=== PATIENT | male | born 1945 | race Caucasian/White ===

== ENCOUNTER 2023-08-05 05:57 | Inpatient (IN) | payer OTHER, SELFPAY ==
[2023-07-31 09:41] LABS: % Basophils 0.4 % (0-2); % Eosinophils 1.8 % (0-6); % Immature Granulocytes 0.1 % (0-0.5); % Lymphocytes 18.2 % (20.5-51.1); % Monocytes 11.7 % (1.7-9.3); % Neutrophils 67.8 % (42.2-75.2); Absolute Eosinophils 0.1 10^3/uL (0-0.7); Absolute Lymphocytes 1.4 10^3/uL (1.2-3.4); Absolute Monocytes 0.9 10^3/uL (0.1-0.6); Absolute Neutrophils 5.2 10^3/uL (1.4-6.5); Hematocrit 39.7 % (39.0-52.0); Hemoglobin 13.7 g/dL (13.0-18.0); Mean Corp Hgb Conc. 34.5 g/dL (33.0-37.0); Mean Corpuscular Hgb 32.5 pg (27.0-31.0); Mean Corpuscular Volume 94.3 fL (80.0-94.0); Mean Platelet Volume 10.4 fL (7.4-10.4); Nucleated Red Blood Cells % 0 % (-); Platelet Count 264 10^3/uL (130-400); Red Blood Cell Count 4.21 10^6/uL (4.70-6.10); Red Cell Dist. Width 13.7 % (11.5-14.5); White Blood Cell Count 7.7 10^3/uL (4.8-10.8)
[2023-07-31 09:56] LABS: APTT 36.1 Sec (23.4-35.0); INR 1.14; PT 14.7 Sec (11.4-14.6)
[2023-07-31 11:06] VITALS: BMI 26.2
[2023-07-31 12:37] LABS: Glycohemoglobin (HgbA1c) 5.9 % (4.0-5.6)
[2023-08-05] VITALS (15 sets, daily range): BP systolic 89–166; BP diastolic 56–114; BMI 25.5
[2023-08-05] MEDS: PERIDEX 0.12% ORAL RINSE 15 ML PO (06:32)
[2023-08-05] MEDS: BACTROBAN NASAL 1 GRAM NASAL (06:32)
[2023-08-05] MEDS: NSS 266 IV (06:33)
[2023-08-05 06:50] LABS: Glucose - Point of Care 108 mg/dl (70-99)
[2023-08-05 07:03] LABS: ALT (SGPT) 23 U/L (0-50); AST (SGOT) 34 U/L (17-59); Albumin 4.4 g/dl (3.5-5.0); Alkaline Phosphatase 102 U/L (38-126); Blood Urea Nitrogen 15 mg/dl (9-20); Calcium 10.1 mg/dl (8.4-10.2); Carbon Dioxide 28 mmol/L (22-30); Chloride 101 mmol/L (98-107); Estimated Creatinine Clearance 88 ml/min; Glucose 99 mg/dl (70-99); Potassium 4.2 mmol/L (3.5-5.1); Sodium 137 mmol/L (135-145); Total Bilirubin 0.9 mg/dl (0.2-1.3); Total Protein 8.6 g/dl (6.3-8.2); eGFR > 60.00
--- NOTE | 2023-08-05 08:18 | W.SUR.PREOP ---
Pre-Operative Surgical Note
-
I have examined this patient prior to the performance of the scheduled procedure.
The patient's condition is unchanged from the time of the current History and
Physical and the patient is able to undergo the scheduled procedure.
[2023-08-05 09:52] LABS: ACT-LR - POC 306 Seconds (116-155)
[2023-08-05 10:56] LABS: ACT-LR - POC 229 Seconds (116-155)
[2023-08-05 11:05] LABS: B.E. - POC -2.3 mmol/L; Glucose - POC 56 mg/dl (65-99); HCO3 - POC 24 mmol/L (21-29); Hematocrit - POC 36 % PCV (42-52); Hemodilution- POC No; Hemoglobin Calculated - POC 12.3; Ionized Calcium - POC 1.19 mmol/L (1.12-1.27); Lactate - POC 0.59 mmol/L (0.36-0.75); O2 Saturation %Calculated-POC 99.6 5 (92-96); PCO2 - POC 44 mmHg (35-45); PO2 - POC 200 mmHg (80-100); Potassium - POC 3.6 mmol/L (3.6-5.0); Sodium - POC 142 mmol/L (135-145); pH - POC 7.34 (7.35-7.45)
[2023-08-05 11:54] LABS: ACT-LR - POC 226 Seconds (116-155)
[2023-08-05 12:55] LABS: ACT-LR - POC 247 Seconds (116-155)
[2023-08-05 13:03] LABS: Glucose - Point of Care 123 mg/dl (70-99)
[2023-08-05 13:54] LABS: ACT-LR - POC 250 Seconds (116-155)
[2023-08-05 14:56] LABS: ACT-LR - POC 245 Seconds (116-155)
[2023-08-05 15:00] LABS: B.E. - POC -8.3 mmol/L; Glucose - POC 109 mg/dl (65-99); HCO3 - POC 21 mmol/L (21-29); Hematocrit - POC 36 % PCV (42-52); Hemodilution- POC Yes; Hemoglobin Calculated - POC 12.4; Ionized Calcium - POC 1.12 mmol/L (1.12-1.27); O2 Saturation %Calculated-POC 99.4 5 (92-96); PCO2 - POC 56 mmHg (35-45); PO2 - POC 194 mmHg (80-100); Potassium - POC 4.1 mmol/L (3.6-5.0); Sodium - POC 140 mmol/L (135-145); pH - POC 7.17 (7.35-7.45)
[2023-08-05 15:40] LABS: Glucose - Point of Care 106 mg/dl (70-99)
[2023-08-05 15:48] LABS: ACT-LR - POC 266 Seconds (116-155)
[2023-08-05 15:57] LABS: B.E. - POC -1.5 mmol/L; Glucose - POC 144 mg/dl (65-99); HCO3 - POC 25 mmol/L (21-29); Hematocrit - POC 37 % PCV (42-52); Hemodilution- POC Yes; Hemoglobin Calculated - POC 12.4; Ionized Calcium - POC 1.05 mmol/L (1.12-1.27); Lactate - POC 1.25 mmol/L (0.36-0.75); O2 Saturation %Calculated-POC 99.8 5 (92-96); PCO2 - POC 47 mmHg (35-45); PO2 - POC 246 mmHg (80-100); Potassium - POC 4.2 mmol/L (3.6-5.0); Sodium - POC 141 mmol/L (135-145); pH - POC 7.33 (7.35-7.45)
--- NOTE | 2023-08-05 16:54 | CON.INTV ---
Consultation
Consultation Request
Date/Time Consultation Requested: 08/05/2023 - 162
Date/Time Consultation Performed: 08/05/2023 - 1652
Requesting Provider: Kalyani YODER
Performing Provider: Dr. Ray
Reason for Consultation: s/p EVAR
Medical History
-
Chief Complaint: Elective endarterectomy/EVAR
History of Present Illness:
78-year-old male with a past medical history of PAD s/p kissing iliac stents bilaterally, AAA, COPD, tobacco use disorder, CAD s/p CABG x3 and A-fib s/p multiple failed cardioversions who presents with elective bilateral femoral endarterectomy and
vascular intervention for AAA. Patient known to Dr. Balbuena with last office visit on 06/25/2023. 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
the right renal artery. He also has high-grade stenosis involving the left external iliac artery extending into the common femoral artery. Open surgical repair was reviewed and that was considered too risky, hence best approach was a hybrid
surgical approach involving bilateral femoral cutdowns, femoral endarterectomies with patch angioplasty and then eventually retrograde balloon angioplasty with stenting of the left iliac artery and endovascular repair of his aortic aneurysm. Today,
patient underwent that surgery with 500 cc EBL and no immediate complications. Patient transferred to the ICU postoperatively and physician office assistant service is consulted for additional management/recommendations.
When I saw the patient he was in bed, in no acute distress, heart rate 119, saturating 97% on 2 L/min nasal cannula, BP 142/71 via A-line on Cardene gtt at 7.5 mg/h. Patient says he feels anxious, but denies chest pain, headache, abdominal pain,
shortness of breath, fevers or chills. He says he has been smoking about 1 pack/day for the last 60-65 years, but he is 'done smoking today.'
PMHx: Hyperlipidemia, ED, PMR, hypertension, CAD s/p CABG x3, history of skin cancer, tobacco use disorder, PAD, NSVT s/p ablation, history of alcohol abuse, history of COPD, A-fib (diagnosed in 2017), CAD s/p stents (1993 + 1994), history of
diverticulosis, history of NSTEMI
PSHx: History of cardioversion, history of cardiac ablation, CABG X3, history of kissing iliac stents bilaterally
Past Medical History
Past Medical History: Other (Above as per HPI)
Past Surgical History: Other (Above as per HPI)
Social History
Tobacco: Smoker (1PPD x 60-65 years)
Alcohol: None
Drug: None
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
Family History
Family History: CAD (Father) and Cancer (Mother: Lung cancer)
Allergies / Home Medications
Allergies
Allergy/AdvReac Type Severity Reaction Status Date / Time
Benzodiazepines Allergy works Verified 08/05/23 06:41
opposite-
gets
agitated
codeine Allergy gets wild- Verified 08/05/23 06:41
hallucinations,
visual
diazepam Allergy agitated + Verified 08/05/23 06:41
nervous
Home Medications
Medication Instructions Recorded Confirmed Last Taken Type
cetirizine 10 mg tablet 10 mg PO PRN PRN allergy 07/07/13 08/05/23 08/03/23 11:00 History
1 tab
acetaminophen 325 mg tablet 650 mg PO PRN PRN pain 11/12/21 07/28/23 05/07/23 History
cholecalciferol (vitamin D3) 50 2,000 units PO DAILY@1200 11/12/21 08/05/23 08/03/23 11:00 History
mcg (2,000 unit) tablet Supplement 1 tab
diltiazem HCl 300 mg 300 mg PO DAILY Arrhythmia 11/12/21 08/05/23 08/03/23 11:00 History
capsule,extended release 24 hr 1 tab
docusate sodium 100 mg capsule 100 mg PO DAILY@1200 Constipation 11/12/21 08/05/23 08/03/23 11:00 History
1 cap
multivitamin with folic acid 400 1 tab PO DAILY@1200 Supplement 11/12/21 08/05/23 08/03/23 11:00 History
mcg tablet (Tab-A-Samir) 1 tab
tiotropium bromide 1.25 2 puff inhalation R DAILY PRN 11/12/21 08/05/23 Unknown History
mcg/actuation mist for inhalation sob/wheezing
(Spiriva Respimat)
lisinopril 5 mg tablet 5 mg PO NOON 05/08/23 08/05/23 08/03/23 11:00 History
1 tab
vitamin B complex 1 cap PO DAILY@1200 05/08/23 08/05/23 08/03/23 11:00 History
1 cap
zinc acetate 50 mg (zinc) capsule 50 mg PO DAILY@1200 05/08/23 08/05/23 08/03/23 11:00 History
1 cap
apixaban 5 mg tablet (Eliquis) 5 mg PO BID Blood clot 05/10/23 08/05/23 08/02/23 11:00 Rx
prevention/tx #0 tabs 1 tab
rosuvastatin 40 mg tablet (Crestor) 40 mg PO HS High cholesterol #0 05/10/23 08/05/23 08/03/23 22:00 Rx
tabs 1 tab
folic acid 400 mcg tablet 0.4 mg PO DAILY 07/28/23 08/05/23 08/03/23 11:00 History
1 tab
Review of Systems
-
History Source: Patient
All other systems: Negative unless noted (12 point ROS performed and is negative unless mentioned above.)
Vitals / Labs / Diagnostic Testing
Vital Signs
Temp Pulse Resp BP Pulse Ox
97.9 F 104 16 132/86 97
08/05/23 06:51 08/05/23 06:51 08/05/23 06:51 08/05/23 06:51 08/05/23 06:51
Diagnostic Testing:
Physical Exam
-
HEENT: Normocephalic and Anicteric
Cardiovascular: Peripheral Edema (Negative) and Other (Tachycardic)
Respiratory: Clear, Wheeze (Negative), Rales (Negative), Rhonchi (Negative) and Non-Labored Respirations
GI: Soft, Non Distended and Non Tender
Neurology: AO x 3 and Tremors (Negative)
Skin: Warm (However toes are cold bilaterally (R >L)) and Dry
General: Comfortable
Assessment
-
Assessment: 78-year-old male with a past medical history of PAD s/p kissing iliac stents bilaterally, AAA, COPD, tobacco use disorder, CAD s/p CABG x3 and A-fib s/p multiple failed cardioversions who presents with elective bilateral femoral
endarterectomy and vascular intervention for AAA. Patient known to Dr. Balbuena with last office visit on 06/25/2023. 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
aorta just inferior to the right renal artery. He also has high-grade stenosis involving the left external iliac artery extending into the common femoral artery. Open surgical repair was reviewed and that was considered too risky, hence best
approach was a hybrid surgical approach involving bilateral femoral cutdowns, femoral endarterectomies with patch angioplasty and then eventually retrograde balloon angioplasty with stenting of the left iliac artery and endovascular repair of his
aortic aneurysm. Today, patient underwent that surgery with 500 cc EBL and no immediate complications. Patient transferred to the ICU postoperatively and physician office assistant service is consulted for additional management/recommendations.
Chronic medical conditions [facility] [employer]: Hyperlipidemia, ED, PMR, hypertension, CAD s/p CABG x3, history of skin cancer, tobacco use disorder, PAD, NSVT s/p ablation, history of alcohol abuse, history of COPD, A-fib (diagnosed in 2016), CAD s/p stents (1993
+ 1994), history of diverticulosis, history of NSTEMI
Impression:
#Bilateral femoral artery stenosis s/p cutdown with endarterectomy with bovine patch angioplasty & left iliac artery stenting,(POD #0)
#AAA s/p EVAR using physician modified aortic endograft (POD #0)
#Leukocytosis
#Anemia
#Tachycardia - patient endorses anxiety
Plan:
Postoperative surgical intensive care unit monitoring
Supplemental oxygen as needed
Incentive spirometry
Aspiration precautions
Neuro and vascular checks per protocol
Vascular surgery following-correspondence and operative notes reviewed
Prn ativan ordered for anxiety
Wean down cardene gtt to maintain MAP 70-100 while keeping SBP>90
DVT prophylaxis
Early nutrition
Early mobilization
Critical care statement: A total of 44 minutes of critical care time was provided for this patient today. This includes management of unstable vital signs, evaluation of the patient at bedside, reviewing the patient's pertinent medical records
including radiographs, microbiology, laboratory evaluations, and discussion with primary team, consultants, pharmacy, nutrition, physical therapy, case management, charge nurse, critical care nursing, and respiratory therapy.
--- NOTE | 2023-08-05 16:55 | W.IMMPOSTOP ---
Surgical Immed Post Op Note
-
Primary Surgeon: Linwood Balbuena III, MD
Assisting Surgeon: Chris Miguel MD
Pre-op Diagnosis: BL Femoral Artery Stenosis, AAA
Post-op Diagnosis: As above
Procedure Performed: Bilateral femoral artery cutdown, endarterectomy with bovine patch angioplasty, retrograde balloon angioplasty, IV lithotripsy, and stenting of left iliac artery, endovascular aneurysm repair using physician modified aortic
endograph
Anesthesia Type: General
Specimen / Cultures: NA
Estimated Blood Loss: 500cc
Complications: NA
Operative Findings:
Bilateral femoral artery cutdowns were performed and control of proximal common, superficial, and profunda femoral arteries were attained. Heparin was administered at 100u/kg. Retrograde angioplasty and shock-wave lithotripsy were performed to
increase patency of the left iliac artery to facilitate device delivery. Due to a short landing zone, a covered zenith TEVAR graft was unsheathed and fenestrations were created for the SMA and bilateral renal arteries. The graft was then
re-sheathed. Access was obtained via the right common femoral artery and the device was successfully deployed into the abdominal aorta using fluoroscopic guidance. Bilateral arteriotomies were performed and atherosclerotic debris was removed from
the proximal and superficial femoral arteries. Patch angioplasties using 1cm bovine pericardial patches were then used to oversew the arteries. After hemostasis was achieved, the incision sites were closed using 2-0 vicryls (fascia), 3-0 vicryls
(SQ) and skin was closed using alternating 3-0 nylon sutures and renny. Bilateral wound vacs were placed on top. DP pulses were palpable bilaterally postoperatively.
[2023-08-05 17:14] LABS: Mean Corp Hgb Conc. 34.3 g/dL (33.0-37.0); Mean Corpuscular Hgb 32.3 pg (27.0-31.0); Mean Corpuscular Volume 94.1 fL (80.0-94.0); Mean Platelet Volume 10.3 fL (7.4-10.4); Platelet Count 209 10^3/uL (130-400); Red Blood Cell Count 3.72 10^6/uL (4.70-6.10); White Blood Cell Count 23.5 10^3/uL (4.8-10.8)
[2023-08-05] MEDS: DILAUDID 0.25 MG IV (17:21)
[2023-08-05 17:23] LABS: INR 1.21; PT 15.4 Sec (11.4-14.6)
[2023-08-05 17:24] LABS: APTT 30.9 Sec (23.4-35.0)
[2023-08-05 17:28] LABS: ALT (SGPT) 17 U/L (0-50); AST (SGOT) 28 U/L (17-59); Alkaline Phosphatase 85 U/L (38-126); Amylase 41 U/L (30-110); Blood Urea Nitrogen 14 mg/dl (9-20); Calcium 7.9 mg/dl (8.4-10.2); Carbon Dioxide 23 mmol/L (22-30); Chloride 104 mmol/L (98-107); Direct Bilirubin 0.4 mg/dl (0.0-0.4); Estimated Creatinine Clearance 88 ml/min; Glucose 176 mg/dl (70-99); Lipase 57 U/L (23-300); Potassium 4.6 mmol/L (3.5-5.1); Sodium 135 mmol/L (135-145); Total Bilirubin 0.6 mg/dl (0.2-1.3); eGFR > 60.00
[2023-08-05] MEDS: NSS 1000 IV (17:49)
[2023-08-05] MEDS: CARDENE 200 IV (18:27)
--- NOTE | 2023-08-05 18:32 | PTCARENOTE ---
recd from PACU via bed, art line connected to monitor, VS noted. R cuff 104/75, L cuff 165/113, art line see VS intervention, 168/93. Cardene initiated per order, pt denies knowing R and L arms are different pressures. restless, pulling at dotson,
c/o spasm, encouraged to relax and breathe deep. doppler signals noted. bilat STEPHEN dressings maintained. Cordis with IV fluids, temp sensing dotson, periph sites. denies pain at this time.
[2023-08-05] MEDS: LOW STRENGTH ASPIRIN 81 MG PO (18:41)
[2023-08-05 18:43] LABS: Magnesium 1.9 mg/dl (1.6-2.3)
--- NOTE | 2023-08-05 19:00 | PTCARENOTE ---
pulse checks as noted, doppler signals, fleeting one obtained L anterior tib. no other change. c/o dotson, needs to urinate, reassured and shown that catheter is draining, warm blankets given. pillow under calves. neil initiated, see
intervention, titrating carefully. Swallowed pill easily, sip water.
[2023-08-05] MEDS: ATARAX 25 MG PO (20:12)
--- NOTE | 2023-08-05 20:48 | OR.RPT ---
Operative Report
Operative Report
Date of Operation: 08/05/2023
Pre Op Diagnosis:
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
2.) Small fusiform abdominal aortic aneurysm distally
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
4.) Calcified common femoral artery disease bilaterally
Post Op Diagnosis:
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
2.) Small fusiform abdominal aortic aneurysm distally
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
4.) Calcified common femoral artery disease bilaterally
Procedure:
1.) Cutdown and open exposure of BILATERAL common femoral arteries
2.) Intravascular lithotripsy of calcified left common iliac artery stenosis (9 mm x 30 mm Shockwave L6 balloon)
3.) Intravascular lithotripsy of calcified left external iliac artery stenosis (9 mm x 30 mm Shockwave L6 balloon)
4.) Intravascular lithotripsy of calcified left common femoral artery stenosis (9 mm x 30 mm Shockwave L6 balloon)
5.) Endovascular repair of saccular abdominal aortic aneurysm and smaller fusiform abdominal aortic aneurysm:
Physician modified aortic endograft: Cook Alpha 30-26-108 (back table fenestrations created for superior mesenteric artery and bilateral renal arteries)
6 mm x 22 mm atrium iCast stent left renal artery; proximal postdilated to 8 mm
7 mmx 39 mm [place] VBX right renal artery; proximal postdilated to 8 mm
Endologix AFX2 distal main body 28�60/16�40
6.) BILATERAL common femoral artery endarterectomies with patch angioplasty using bovine pericardium
Surgeon: Linwood Balbuena III, MD
Radiology Asst: Chris Miguel MD PGY-1; BEBA Leiva
Fluoroscopy:
102.9 minutes
4345 mGy
DAP 720.82
Anesthesia: General
Complications: None
Estimated Blood Loss: 500 cc
History and Indications for Procedure: 78-year-old male with severe peripheral arterial occlusive disease, bilateral iliac artery disease, prior kissing iliac stents, a large saccular aneurysm of the abdominal aorta, a smaller fusiform aneurysm of
the more distal and bilateral common femoral artery disease.
Procedure in Detail: Avery Guajardo was correctly identified and placed supine on the operating table. After adequate induction of anesthesia the abdomen, pelvis and bilateral groins were positioned, prepped and draped in the usual sterile fashion.
Preoperative antibiotics were administered. A timeout procedure was performed with the nursing and anesthesia staff confirming the patients identity as well as the nature and laterality of the procedure.
We started by making vertical incisions in the groins bilaterally. Electrocautery was used to dissect the subcutaneous tissue. Lymphatics were ligated and divided between silk ties and metal clips. Through a combination of sharp dissection and
electrocautery, we identified the common femoral arteries bilaterally. Dissection continued up under the inguinal ligament into the retroperitoneum bilaterally. The distal external iliac artery bilaterally was encircled with a vessel loop
underneath the inguinal ligament. Dissection was then continued distally. The femoral bifurcation was identified bilaterally as well as the proximal superficial femoral artery and profunda femoral artery. The proximal superficial femoral artery was
encircled with a vessel loop bilaterally. Dissection onto the profunda femoral artery bilaterally. The proximal profunda femoral artery was controlled with a vessel loop bilaterally. The patient was systemically heparinized.
The left common femoral artery at the femoral bifurcation was punctured in a retrograde direction under direct visualization with a micropuncture needle. I then upsized to a 5 Lithuanian sheath over a Bentson wire. A retrograde arteriogram was
performed through the 5 Lithuanian sheath demonstrating a patent iliac system however there was diffuse heavy calcification with areas of high-grade stenosis in the common iliac artery, iliac bifurcation and throughout the external iliac artery and
proximal common femoral artery. A Glidewire and quick cross catheter were advanced through the iliac system and into the abdominal aorta. I exchanged out for a Storq wire. An 8 Lithuanian sheath was placed in the left groin. I then exchanged out for
a V18 wire. Due to the heavily calcified nature of the arterial disease and in an effort to modify the calcium to achieve maximum luminal gain with endovascular intervention as well as prepare the left iliac system for endovascular device delivery
I elected to proceed with intravascular lithotripsy. A 9 mm x 30 mm L6 shockwave balloon was advanced over the wire and through the iliac stenoses under roadmap guidance. Alternating rounds of lithotripsy pulse delivery at sub-nominal pressure and
angioplasty at nominal pressure was performed across the entire iliac system starting at the distal aspect of the existing common iliac artery stent and finishing in the left common femoral artery. Intravascular lithotripsy treatment included the
common iliac artery, external iliac artery and common femoral artery. In between rounds of pulse delivery and angioplasty the balloon was deflated and repositioned under roadmap guidance. All 300 pulses were delivered.
Following this I then exchanged out for a Lunderquist wire. In an effort to determine whether the aortic endograft could be successfully delivered through the iliac system prior to physician modification I advanced a 16 Lithuanian dilator followed by
an 18 Lithuanian dilator over the Lunderquist wire through the left femoral access. Both of these dilators passed easily through the left iliac system and into the aorta. I remove the dilator and replaced a 16 Lithuanian dry seal sheath in the left groin.
Both groins were packed with dry gauze. We then proceeded with the back table aortic stent graft modification as follows:
The Cook Alpha 30-26-108 aortic graft was unsheathed on the back table. The proximal metal barbs were carefully removed circumferentially. A marked template was made on the back table using precise measurements from the preoperative CT angiogram
for the SMA and bilateral renal artery fenestrations. This template was then laid over the aortic endograft carefully and fenestrations were created in the endograft using a hand-held Bovie. A large 1 cm fenestration was created to the SMA. Renal
fenestrations were 6 mm each. The SMA fenestration was marked by sewing the wire from a gooseneck snare circumferentially around the fenestration with a running CV 6 Smithfield-Jorge Luis suture. The right renal fenestration was marked in a similar fashion.
The left renal fenestration was marked using the radiopaque tip of the micropuncture introducer wire. Orientation markers were utilized. The radiopaque marker from a pigtail catheter was removed and sewn in place to the endograft and an anterior
location just superior to the superior mesenteric artery fenestration. Another radiopaque marker from the pigtail catheter was removed and sewn in place to the endograft immediately below the left renal artery fenestration. 3-0 chromic suture was
then sewn circumferentially around the proximal stent of the aortic endograft as a diameter constraining mechanism. On the posterior aspect of the endograft behind the superior mesenteric artery fenestration and the renal artery fenestrations
additional diameter constraining sutures were placed around the aortic endograft stents using 3-0 chromic. Once satisfied with the physician modification we then very carefully resheathed the aortic stent by constraining the device segmentally
using umbilical tape and digital compression. The sheath was carefully readvanced over the stent and mated with the proximal olive-tip. Once this was completed the modified aortic endograft was brought over to the patient and oriented properly
under fluoroscopy.
Under direct visualization I punctured the right common femoral artery in a retrograde fashion with a micropuncture needle. I then upsized to an 8 Lithuanian sheath. I then advanced a pigtail catheter into the abdominal aorta. The C arm was placed
into a lateral projection. I performed an aortogram which visualized the origin of the superior mesenteric artery and both renal arteries. Using a MHK2 catheter and a Glidewire I selected the superior mesenteric artery. The Glidewire was advanced
into the distal artery. I then exchanged out for a Gibson wire through a Quickcross catheter and left the Gibson wire in place for marking purposes. The 8 Lithuanian sheath was removed and a 12 Lithuanian dry seal sheath was advanced into the distal
abdominal aorta. Over a separate wire through the 12 Lithuanian sheath a pigtail catheter was placed again in the abdominal aorta.
On the left the 16 Lithuanian dry seal was removed. With the proper orientation the modified aortic endograft was advanced over the Lunderquist wire and into the abdominal aorta. The graft was advanced to the approximate position relative to the
marking wire in the superior mesenteric artery. A diagnostic aortogram was performed. The bilateral renal arteries were marked. The graft was positioned appropriately. The aortic endograft was then carefully unsheathed to the distal end of the
stent.
Through a separate puncture in the 12 Fr sheath, using a Deni catheter and a Storq wire, the aortic stent graft main body was accessed. A Destino sheath was then advanced over the wire into the main body. Using the steerable Destino sheath and a
glidewire the left renal artery was accessed. The glide wire was exchanged out for a Gibson wire. The Destino sheath was straightened out slowly and removed.
Through a separate puncture in the 12 Fr sheath, using a Deni catheter and a Storq wire, the aortic stent graft main body was accessed once again. A Destino sheath was then advanced over the wire into the main body. Using the steerable Destino
sheath and a glidewire the right renal artery was accessed. The Glidewire was exchanged out for a Gibson wire. The Destino sheath was left in place
The proximal aspect of the Cook Alpha graft was then deployed. The delivery system was carefully removed over the wire. The Cook sheath was then exchanged out for the 17 Lithuanian AFX introducer sheath which was brought into position over the
Lunderquist wire to the distal aspect of the aortic endograft. A Coda balloon was then inserted on the left and the proximal seal zones of the aortic stent graft were profiled as well as all areas of the diameter reducing chromic sutures. The Coda
was then removed over the wire.
Deployment of the renal artery stents across the renal fenestrations were completed one at a time as follows: The renal fenestration markers on each side were 'closed' by adjusting the C-arm obliquity. We attempted to deliver a 7 mm x 39 mm [place]
VBX to the right renal artery through the Destino sheath. We could not track the sheath across an area of proximal calcified stenosis in the right renal artery. I therefore exchanged the Gibson wire out for a 0.014 wire. I then used a 4 mm x 40 mm
angioplasty balloon to perform balloon angioplasty on the area of calcified renal artery. I then exchanged out for a 1 cm floppy tip Amplatz wire through a quick cross catheter. I then straightened out and removed the Destino sheath. A 6 Lithuanian
Slick sheath was then advanced over the Amplatz wire through the right renal artery fenestration. We were then able to successfully deliver the 7 mm x 39 mm [place] VBX into the proper position. The stent was positioned in the desired location. The
balloon was inflated to subnominal pressure. The Slick sheath was re-advanced into the VBX to 'swallow' the balloon as it was deflated. An 8 mm x 20 mm angioplasty balloon was then positioned in the proximal portion of the VBX. The sheath was
retracted and the balloon inflated while maintaining gentle forward pressure to post-dilate the proximal end of the VBX. The sheath was once again re-advanced into the stent by swallowing the balloon as it deflated. The Slick sheath was removed but
the Amplatz wire was left in place.
Over the Gibson wire in the left renal artery a 6 mm x 22 mm iCast stent was positioned appropriately. The balloon was inflated to nominal pressure and then removed over the wire. An 8 mm x 20 mm angioplasty balloon was then positioned in the
proximal portion of the iCast. The balloon was inflated to nominal pressure while maintaining gentle forward pressure to post dilate the proximal end of the iCast.
Completion arteriograms revealed widely patent renal artery stents and renal arteries bilaterally. The Gibson wire was removed from the left renal artery after successful iCast placement. The superior mesenteric artery was easily cannulated through
the large fenestration with a MHK2 catheter and Glidewire.
We then focused our attention on the distal aortic intervention. Through a separate stick in the 12 Lithuanian dry seal sheath a [employer] wire was inserted. The En-Snare catheter was then advanced to the distal abdominal aorta above the kissing iliac
stents. The wire was removed and the En-snare device inserted. The contralateral limb wire of the AFX2 main body was introduced through the introducer sheath on the left and advanced to the aortic bifurcation. The 28-60/16-40 AFX2 bifurcated main
body was then loaded onto the Lunderquist wire and advanced through the introducer sheath. The wire was snared from the contralateral side and pulled out the right femoral access and the AFX2 main body was advanced until the limbs were above the
aortic bifurcation. The entire system was then pulled down onto the lucia-aortic bifurcation created by the kissing iliac stents. The main body was then deployed by pulling the control cord.
The contralateral limb was then deployed by pulling the yellow limb cover. Once this was completed I advanced a pigtail catheter over the contralateral limb wire until the tip was in contact with the wire lock. The contralateral limb was then pulled
as I advanced the pigtail up to release it from the wire lock. The wire was removed and the formed pigtail catheter was then advanced proximally. A Storq wire was inserted. The ipsilateral limb was deployed by pinning the inner core and retracting
the AFX introducer sheath. The delivery system was then removed from the introducer sheath. A Coda balloon was carefully inserted through the sheath over the Lunderquist wire. All areas of overlap between the distal end of the modified aortic
endograft and the AFX main body were profiled with a Coda balloon. The distal main body of the AFX was profiled with a Coda balloon. The left iliac limb was profiled with a Coda balloon. The Coda balloon was then removed. An 8 mm x 40 mm
angioplasty balloon was used to profile the entire right iliac limb.
Following this a pigtail catheter was placed once again. A completion aortogram demonstrated an excellent technical result. There was brisk flow through the aortic stent and iliac limbs. The renal arteries/stents were widely patent bilaterally. The
superior mesenteric artery filled briskly and was widely patent. No filling of the aneurysms were seen. No endoleak was identified.
Satisfied with this result we then focused our attention on the bilateral common femoral endarterectomies.
One at a time the large sheaths and wires were removed from the femoral artery access sites. The proximal and distal vessel loops were secured. The proximal vessel loop was replaced with a vascular clamp bilaterally. Clark scissors were used to
make and extend the arteriotomies on the common femoral arteries bilaterally. The arteriotomies were carried distally to the proximal superficial femoral artery bilaterally. The arteriotomy was extended up to the proximal common femoral artery. An
endarterectomy was performed bilaterally in the standard fashion with a Tilton elevator. The proximal extent of the plaque was transected and then additional elements of plaque were pulled out from the distal external iliac artery bilaterally using
forceps and clamps. The distal end of the plaque feathered nicely in the proximal superficial femoral artery bilaterally. The superficial femoral and profunda femoral arteries backbled nicely bilaterally and were both flushed with heparinized
saline solution bilaterally. The endarterectomy plane was then irrigated with heparinized saline solution and any loose fronds of tissue were removed. Patch angioplasties were performed bilaterally using precut 1 cm x 14 cm bovine pericardium. The
patches were sewn in place using a running 6-0 Prolene suture bilaterally. Prior to the completion of the anastomosis, we forward and back bled the arteries. The anastomoses were then completed. The proximal clamp and distal vessel loops were
then released. There were excellent pulses bilaterally within the common femoral artery, profunda femoral artery and proximal superficial femoral artery. The suture lines were closely inspected for hemostasis which was achieved.
Satisfied with this result, we then concluded the procedure. Heparin was reversed with Protamine. The wounds were irrigated with copious amounts of warm saline solution bilaterally. Hemostasis was achieved within the wound beds bilaterally. The
wounds were then closed in multiple layers and sterile STEPHEN dressings were applied.
The patient tolerated the procedure well and was taken to the recovery room in good condition.
Attestation: I was present and responsible for the entire procedure
Signed:
Linwood Balbuena III, MD
[facility]
[phone] (cell)
[2023-08-05] MEDS: LUMINAL 97.2000000000000028 MG PO (21:00)
[2023-08-05] MEDS: CARDIZEM 20 MG IV (22:28)
--- NOTE | 2023-08-05 22:30 | PTCARENOTE ---
Assumed care of patient at 1915. Patient alert and oriented. Anxious. Restless in bed. Tremulous. Multiple reminders provided to not touch dotson catheter/STEPHEN drains. MSAS protocol initiated. Patient administered Atarax and discussed further options
with RUBBER COVERING MACHINE OPERATOR and pharmacist. Patient started on Phenobarb taper. Rec'd patient on Cardene gtt; titrated for MAP 70-90. Left radial arterial line; leveled and zeroed. Afib on tele monitor with rate in the 100-110's. Around 2200, HR increased to 120-130's.
RUBBER COVERING MACHINE OPERATOR notified. RN advised to stop Cardene gtt and administer 20mg IV Cardizem. Rate improved. POX 93-97% on 2l nc. Lung sounds cta. Dotson catheter draining 200-275 an hour. No BM. B/l groin STEPHEN drains functioning. Dressings c/d/i. +Doppler pulses-
left pt and right pt&dp.
[2023-08-05] MEDS: HEPARIN 5000 UNITS SC (23:05)
[2023-08-05] MEDS: TYLENOL 650 MG PO (23:05)
[2023-08-06] MEDS: CARDIZEM 125 IV ×4 (00:07→22:53)
--- NOTE | 2023-08-06 00:33 | PTCARENOTE ---
0000- Assessment unchanged. Cardizem gtt initiated at 5mg/hr. Afib with rate in the 100-110's. VSS. +BM on bedpan.
--- NOTE | 2023-08-06 01:26 | PTCARENOTE ---
Pt febrile. Core temp 101.2. Tylenol administered at 2305. Ice packs applied. HR and BP increased, worsened by restlessness. Cardizem gtt increased to 10. Pt incontinent of a BM. Stool observed to be brown with a red tinge. Hemetest positive. MANAGER PERFORMANCE
notified.
--- NOTE | 2023-08-06 01:40 | W.PN.UPDATE ---
Addendum entered and electronically signed by BEBA Desai 08/06/23 06:50:
08/06/23
0240- Updated Dr. Briggs lactic 2.9, fever 100.7, no abdominal pain, good urinary output.
07/27/23
0600- Updated Dr. Rivera: patient had blood stool more red mixed with small amount of brown stool. SBP 120s on cardene gtt at 15ml/hr. Fever 100.5. Good urinary output 100-200cc/hr. Lactic increased from 2.9 to 3.5; hgb 12 to 10.9. Patient denies
abdominal pain. Recommendations received: 1L NSS ordered, increased IV fluids to NSS 150 ml/hr, Dr. Rivera will contact colorectal Dr. Padilla.
Addendum entered and electronically signed by BEBA Desai 08/06/23 02:02:
Add to pervious note: patient spike fever 101.2, tylenol given and placed ice packs on patient.
Per Dr. Briggs's recommendations: obtaining lactic, patient denies any abdominal pain, and update her if lactic is positive.
Original Note:
Update Note
Progress Note Update
RN reported heme positive stool on patient, mostly brown stool with slight red tinged. Vital signs stable, patient hypertensive sbp 140s, HR 100s on cardizem gtt. Hgb 12 on last H&H check, will trend H&H on morning labs or earlier if bloody stools
become more frequent. Dr. Briggs, vascular surgeon updated.
[2023-08-06 02:38] LABS: Lactic Acid 2.9 mmol/L (0.7-2.0)
[2023-08-06] MEDS: TYLENOL 650 MG PO (03:20)
[2023-08-06 03:35] LABS: Hematocrit 30.6 % (39.0-52.0); Hemoglobin 10.9 g/dL (13.0-18.0); Mean Corp Hgb Conc. 35.6 g/dL (33.0-37.0); Mean Corpuscular Hgb 32.5 pg (27.0-31.0); Mean Corpuscular Volume 91.3 fL (80.0-94.0); Mean Platelet Volume 10.4 fL (7.4-10.4); Platelet Count 192 10^3/uL (130-400); Red Blood Cell Count 3.35 10^6/uL (4.70-6.10); Red Cell Dist. Width 13.9 % (11.5-14.5); White Blood Cell Count 25.3 10^3/uL (4.8-10.8)
[2023-08-06 03:50] LABS: INR 1.21; PT 15.4 Sec (11.4-14.6)
[2023-08-06 03:51] LABS: APTT 31.7 Sec (23.4-35.0)
[2023-08-06 04:10] LABS: ALT (SGPT) 46 U/L (0-50); AST (SGOT) 111 U/L (17-59); Albumin 3.5 g/dl (3.5-5.0); Alkaline Phosphatase 84 U/L (38-126); Amylase 91 U/L (30-110); Blood Urea Nitrogen 17 mg/dl (9-20); Carbon Dioxide 20 mmol/L (22-30); Chloride 107 mmol/L (98-107); Direct Bilirubin 0.5 mg/dl (0.0-0.4); Estimated Creatinine Clearance 77 ml/min; Glucose 177 mg/dl (70-99); Lipase 88 U/L (23-300); Potassium 4.1 mmol/L (3.5-5.1); Sodium 136 mmol/L (135-145); Total Bilirubin 0.6 mg/dl (0.2-1.3); Total Protein 6.3 g/dl (6.3-8.2); eGFR > 60.00
[2023-08-06 06:00] VITALS: BMI 25.4
[2023-08-06] MEDS: NSS 1000 IV ×2 (06:11→15:59)
[2023-08-06] MEDS: NSS 500 IV (06:17)
[2023-08-06 06:25] LABS: Lactic Acid 3.5 mmol/L (0.7-2.0)
--- NOTE | 2023-08-06 07:00 | W.PN.UPDATE ---
Update Note
Progress Note Update
Contacted regarding patient with bloody bowel movement. Patient seen and examined urgently. Overnight from report, patient had small bloodstained bowel movement. Lactate was sent. Was 2.9. Now earlier this a.m. had geoff red bloody bowel
movement. In addition fever to 101.2. Patient denies any abdominal pain. He notes he just feels chilly.
On exam/he is awake and alert. Slight shivering from fever but no acute distress. Systolic blood pressure 151/75. Heart rate upper 90s to low 100s. Respiratory rate 19. Temperature currently 100.5. O2 saturation approximately 95 to 97%. On
nasal cannula ? 2L. Urine output 100 to 200 cc/h overnight. Last couple hours was 75 and 60 cc/h. His abdomen is soft, nondistended, nontender. Groin sites are flat bilaterally. No hematomas. Dressings are clean dry and intact. Feet are warm
and pink. Right side with palpable DP. Left side with dopplerable signals.
White blood cell count 25.3. Hemoglobin 10.9. Lactic acid 3.5 (rising from 2.9 prior).
Plan/ Postoperative day #1 status post complex endovascular aneurysm repair (juxtarenal aneurysm) with bilateral iliac artery lithotripsy angioplasty and bilateral femoral endarterectomies. While patient does not appear generally toxic, he does
have a fever and elevated white blood cell count. Lactate is also elevated. Obviously this raises concern for colonic ischemia. I have increased his hydration. 1 L bolus given. Fluid rate up to 150 cc/h. Will start antibiotics. I have
consulted colorectal surgery. I spoken to Dr. Padilla who will see the patient this morning for likely urgent bedside flexible sigmoidoscopy.
[2023-08-06] MEDS: PROTONIX IV 40 MG IV (07:59)
[2023-08-06 08:00] VITALS: BP 112/56
[2023-08-06] MEDS: FLUSH (NSS) 1 FLUSH IV ×3 (08:03→16:48)
--- NOTE | 2023-08-06 08:03 | W.PN.VS ---
Addendum entered and electronically signed by Linwood Balbuena III, MD 08/06/23 12:33:
This patient was seen and examined with BEBA Garcia. I agree with the history and physical exam as well as the assessment and plan. I have the following additions:
Bloody bowel movement overnight
Fever
Rising lactic acid
Clinically patient is nontoxic-appearing
Abdomen is soft and nontender
Groins flat with sybil dressings intact bilaterally
Feet warm and Doppler signals intact bilaterally
Urine output has been excellent
Concern is for colonic ischemia post EVAR
Planning for scope this morning
Colorectal surgery on board
Starting antibiotics
I have been trying all morning to reach his to update her on [place] clinical status but have been unsuccessful. Calling [phone]. 'The person you have dialed is unable to receive calls at this time '
Will continue to try
Signed:
Linwood Balbuena III, MD
[facility] Vascular Surgery
[phone] (iefk)
Original Note:
Today's Communication / Plan
-
See below.
Assessment/Plan
-
Assessment: 78-year-old male POD #1 Cutdown and open exposure of BILATERAL common femoral arteries, intravascular lithotripsy of calcified left common iliac artery stenosis, left external iliac artery stenosis, and left common femoral artery
stenosis, endovascular repair of saccular abdominal aortic aneurysm and smaller fusiform abdominal aortic aneurysm with physician modified aortic endograft: Cook Alpha 30-26-108 (back table fenestrations created for superior mesenteric artery and
bilateral renal arteries, 6 mm x 22 mm atrium iCast stent left renal artery; proximal postdilated to 8 mm, 7 mmx 39 mm [place] VBX right renal artery; proximal postdilated to 8 mm, Endologix AFX2 distal main body 28�60/16�40), BILATERAL common femoral
artery endarterectomies with patch angioplasty using bovine pericardium
Plan:
Concern for ischemic colon given fevers, reports of bloody stool, and elevated lactic acid. Consulted colorectal surgery, Dr. Rivera spoke to Dr. Padilla directly, and patient will go for urgent flexible sigmoidoscopy today
1 L fluid bolus given for elevated lactic acid
IVF increased to 150 ml/hr
Will start antibiotics
Continue neurovascular checks
Subjective Data
-
Date of Service: August 06, 2023
Patient seen and examined at bedside reports fever and chills overnight and bloody bowel movement x 2. Denies nausea, vomiting, and abdominal pain. Reports adequate postoperative pain management.
Objective Data
-
Vital Signs
Temp Pulse Resp BP Pulse Ox
99.8 F 103 19 151/75 97
08/06/23 07:29 08/06/23 06:00 08/06/23 06:00 08/05/23 22:28 08/06/23 05:15
Intake and Output
08/05/23 08/06/23 08/07/23
06:59 06:59 06:59
Intake Total 1750 / 1750
Output Total 2710 / 2710
Balance -960 / -960
Intake:
Oral fluids 50 / 50
IV fluids (Total) 1700 / 1700
Cardizem 85 / 85
Nss 1,000 ml @ 80 mls/hr IV . 1540 / 1540
[id number] [facility], [facility]–1983 Rx#:[id number]
cardene 75 / 75
Output:
Urine, Balbuena 2710 / 2710
Lab Results
08/06/23 03:27
08/06/23 03:27
Calcium 8.0 mg/dl (8.4-10.2) L 08/06/23 03:27
Magnesium 1.9 mg/dl (1.6-2.3) 08/05/23 17:04
Total Bilirubin 0.6 mg/dl (0.2-1.3) 08/06/23 03:27
Direct Bilirubin 0.5 mg/dl (0.0-0.4) H 08/06/23 03:27
AST 111 U/L (17-59) H 08/06/23 03:27
ALT 46 U/L (0-50) 08/06/23 03:27
Alkaline Phosphatase 84 U/L (38-126) 08/06/23 03:27
Total Protein 6.3 g/dl (6.3-8.2) 08/06/23 03:27
Albumin 3.5 g/dl (3.5-5.0) 08/06/23 03:27
Physical Exam
-
AAOx3
No tachycardia
No dyspnea
ABD nondistended, mild tenderness to palpation left lower quadrant
Bilateral groin sites CDI, flat no evidence of hematoma
Right DP pulse 1 palpable, left DP by Doppler
[2023-08-06] MEDS: NSS (PRESERVATIVE FREE) 10 ML IV (08:06)
[2023-08-06 08:11] VITALS: BP 157/75
--- NOTE | 2023-08-06 08:27 | W.PN.INTV ---
Today's Communication / Plan
Recommendations
Pain control
Keep NGT to suction
Titrate cardizem gtt to keep HR<110
Maintain MAP 70-90
Goal SpO2 >88%
Trend lactate
Trend Hb
Continue ICU level of care
Assessment
-
Assessment: 78-year-old male with a PMHx of PAD s/p kissing iliac stents bilaterally, AAA, COPD, tobacco use disorder, CAD s/p CABG x3 and A-fib s/p multiple failed cardioversions who presents with elective bilateral femoral endarterectomy and
vascular intervention for AAA. 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 He also has high-grade stenosis
involving the left external iliac artery extending into the common femoral artery. Open surgical repair was reviewed and that was considered too risky, hence best approach was a hybrid surgical approach - on 08/05/2023 the pt underwent bilateral
femoral cutdowns, femoral endarterectomies with patch angioplasty and then eventually retrograde balloon angioplasty with stenting of the left iliac artery and endovascular repair of his aortic aneurysm. Patient underwent that surgery with 500 cc
EBL and no immediate complications, and TRX to the ICU postoperatively and check and transfer beader service is consulted for additional management/recommendations.
Chronic medical conditions [employer]: Hyperlipidemia, ED, PMR, hypertension, CAD s/p CABG x3, history of skin cancer, tobacco use disorder, PAD, NSVT s/p ablation, history of alcohol abuse, history of COPD, A-fib (diagnosed in 2017), CAD s/p stents (1993
+ 1994), history of diverticulosis, history of NSTEMI
Impression:
#Bilateral femoral artery stenosis s/p cutdown with endarterectomy with bovine patch angioplasty & left iliac artery stenting (POD #1)
#AAA s/p EVAR using physician modified aortic endograft (POD #1)
#Rectal bleeding/BRBPR due to ischemic colitis s/p flexible sigmoidoscopy with open left colectomy with takedown of splenic flexure and end-distal sigmoid colostomy (POD#0)
#Lactic acidosis due to ischemic colitis (likely as an unfortunate complication from the EVAR)
#Leukocytosis
#Anemia - due to ischemic colitis as above
#A-fib with RVR on cardizem gtt
Plan:
Hemodynamically and neurovascularly intact
Wean supplemental oxygen with goal SpO2 >88%
Pain control but monitor for worsening sedation
Incentive spirometry encourage
Aspiration precautions
Maintain MAP>70-90mmHg
Titrate cardizem gtt to keep HR<110bpm
Trend lactate until <2mmol/L
Monitor hemoglobin with serial CBC
Transfuse if needed to maintain Hb>7g/dL, plt>50k
Monitor blood sugars with goal BG 140-180mg/dL
Insulin supplementation if needed
Neuro and vascular checks per protocol also continue
Post-operative management as per vascular surgery and colorectal surgery - operation notes reviewed and recs appreciated
DVT prophylaxis recommended: HSQ
Nutrition
Increase activity/physical therapy - would keep bedbound for today given he is still sedated after returning from OR likely from anesthesia
Continue ICU level of care given the events that occurred overnight and he is continuing to have abdominal pain and requires hourly vital signs to montior pain effectively and to monitor for any worsening rectal bleeding.
Critical care statement: A total of 44 minutes of critical care time was provided for this patient today. This includes management of unstable vital signs, evaluation of the patient at bedside, reviewing the patient's pertinent medical records
including radiographs, microbiology, laboratory evaluations, and discussion with primary team, consultants, pharmacy, nutrition, physical therapy, case management, charge nurse, critical care nursing, and respiratory therapy.
I personally reviewed the patient's pertinent medical records including radiographs, microbiology, laboratory evaluations, and discussion with primary team, consultants, pharmacy, nutrition, physical therapy, case management, charge nurse, critical
care nursing, and respiratory therapy.
Subjective Dataa
Subjective Data
Date of Service:
Date of Service: August 06, 2023
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
Subjective:
Seen this AM. Rectal bleeding overnight. Cardene was switched to cardizem gtt. Going for colonoscopy today with possible colostomy. He has no abd pain. I saw patient after he returned from flexible sigmoidoscopy and he obtained colectomy with
colostomy. Having abdominal pain. Remains on Cardizem drip at 15 mg/h. Currently on 6 L/min nasal cannula saturating 94%.
Review of Systems
General: Other (Negative unless mentioned above)
Objective Data
Data Reviewed
Vital Signs / I&O / Oxygen:
Vital Signs
Temp Pulse Resp BP Pulse Ox
99.8 F 103 19 151/75 97
08/06/23 07:29 08/06/23 06:00 08/06/23 06:00 08/05/23 22:28 08/06/23 05:15
Intake and Output
08/05/23 08/06/23 08/07/23
06:59 06:59 06:59
Intake Total 1750 / 1750
Output Total 2710 / 2710
Balance -960 / -960
SaO2 97
Nasal Cannula flow liters per 2
minute
Physical Exam
General: Chills (negative) and Other (Having pain from abdomen)
HEENT: Normocephalic and Anicteric
Cardiovascular: S1-S2 and Peripheral Edema (negative)
Respiratory: Clear, Wheeze (negative) and Crackles (negative)
GI: Soft, Non Distended, Tender (diffusely without peritoneal signs), NG Tube and Other (Colostomy in place)
Neurology: Tremors (negative) and Other (sleepy but easily arousable and answering my questions appropriately)
Skin: Warm, Dry and Other (toes are cool to touch bilaterally)
Labs/Micro/Reports
Lab Data
08/06/23 03:27
08/06/23 03:27
Laboratory Results
08/05/23 08/06/23
17:04 03:27
PT 15.4 H 15.4 H
INR 1.21 1.21
APTT 30.9 31.7
--- NOTE | 2023-08-06 09:00 | PTCARENOTE ---
Rec'd pt at 0700 awake and alert resting in bed. Pulse and groin checks done wtih offgoing shift. Pt oriented to self and place and general events but did ask what day and time it was. Intermittently forgetful. Denies distinct pain. Speech is
overall clear. Denies headache or dizziness. DESIRAE. Does tend to freqently move arms and at times legs but is not picking at anything currently or trying to get oob. Aware that he needs to not touch any wires or catheters. Skin is pale pink wm and
dry. Bilateral groin STEPHEN dressings are intact. R groin dressing with small amt of old bloody drainage. L is D+I. No reddness, swelling or draingage. Respirs are unlabored - initially on 2l nc but O2 taken off and RA sats are 94%. BS are sl
decreased at the bases. Monitor AFib- rates 95-110. Remains on IV Cardizem at 15 mg/hr via RIJ Cordis along with NSS at 150 mlhr. Site redressed and new Biopatch applied. Capped ints intact RAC and R wrist. + Pulses. PT and DP pulses bilaterally
with the doppler. No edema. Legs are warm. L radial A line is intact-site wnl zeroed and recalibrated. Waveform as documented. Overall congruent with cuff BP. Cuff on L upper arm as ordered. Abd is soft and non tender although did have one episode
of sl cramping. Incont of a small mat of bright red loose bloody stool . Balbuena intact for yellow urine. Complete CHG bath and mouth care given. ASA dose held as pt is NPO and clarified with Dr. Rivera. Dr. Padilla in and pt for sigmoidoscopy and possible
OR. Pt aware and consent signed. Call johnston in reach. Plan of care reviewed with pt. Will monito
--- NOTE | 2023-08-06 09:06 | WOUNDNOTE ---
[facility] RN Note: Colorectal PA Ana Montiel requested b/l stoma markings. Stoma marked all 4 quadrants over the rectus muscle avoiding skin creases. Many upper quadrant skin wrinkles noted while in seat position. Lower quadrants with potential for post
op skin dip/crease r/t body habitus. RUQ stoma alicia 6cm to R of midline and 5cm above umbilical line; RLQ stoma alicia 6.7cm to R of midline and 2.3cm distal to umbilical line; LUQ stoma alicia 6.4cm to L of midline and 4.8cm above the umbilical line;
LLQ stoma alicia 5.2cm to L of midline and 3cm distal to umbilical line. Patient stoma marked in lying and seated position with help from NINA [place] and NINA [place]. Patient unable to stand at this time. Instructed patient surgeon makes the final decision
with stoma placement. [place] texted Sneha Montiel, Colorectal PA re: stoma marked in all 4 quadrants, upper phelan within skin wrinkles in chair position and lower quadrants have risk of post op skin dip/creases d/t body habitus therefore, cannot
predict which quadrant is preferred.
[2023-08-06] MEDS: HEPARIN 5000 UNITS SC ×3 (09:15→23:51)
[2023-08-06] MEDS: PHENOBARBITAL 97.5 MG IV (09:39)
--- NOTE | 2023-08-06 09:40 | PTCARENOTE ---
Pt given Phenobarbitol 97.5 mg x1 dose as he is NPO. 500 ml tap water enema given which pt could not retain. Citlaly care given. Report given to OR staff and pt then sent via bed to the OR with OR staff. Zosyn dose sent with OR staff.
[2023-08-06] MEDS: LOW STRENGTH ASPIRIN PO (09:48)
[2023-08-06] MEDS: ZOSYN 50 IV ×3 (10:00→23:50)
--- NOTE | 2023-08-06 10:27 | W.PN.UPDATE ---
Update Note
Progress Note Update
The patient was seen and examined earlier today, and reviewed the medical record and imaging studies. I also personally reviewed the case with Dr. Rivera. He spiked a fever and is tachycardic and is currently having some lower abdominal cramps. He
is passing multiple bloody bowel movements but remains hemodynamically stable. He is not on pressors and he is on a Cardizem drip. He does not have peritonitis on exam and is nondistended. His white count is elevated at 25.3 and his renal
function is normal. His lactic acid was 2.9 at 2 AM and is now 3.5.
I suspect he has ischemic colitis most likely in the distribution of the LUKAS. I reviewed the options with the patient including continued nonoperative management versus a flexible sigmoidoscopy and possible surgery depending upon the findings. We
discussed the risks and benefits of each and he wishes to proceed with a sigmoidoscopy and surgery if need be. I explained that if the colon appears ischemic I would recommend a colectomy with a colostomy, which is technically temporary. Risks of
endoscopy include, but are not limited to, bleeding and perforation. Risks of surgery include, but are not limited to, bleeding, infection, adhesions, hernias, stoma complications, rectal stump leakage, injury to other structures, persistent
ischemia, DVT, cardiopulmonary complications, and the risks of anesthesia. I also reviewed the typical recovery and functional results. All questions answered and he wishes to proceed with sigmoidoscopy and possible surgery. I made multiple
attempts to contact his without success. He is currently on antibiotics and arrangements are in progress for the OR.
[2023-08-06 11:01] LABS: B.E. - POC -0.9 mmol/L; Glucose - POC 157 mg/dl (65-99); HCO3 - POC 24 mmol/L (21-29); Hematocrit - POC 32 % PCV (42-52); Hemodilution- POC Yes; Hemoglobin Calculated - POC 10.8; Ionized Calcium - POC 1.08 mmol/L (1.12-1.27); Lactate - POC 2.97 mmol/L (0.36-0.75); O2 Saturation %Calculated-POC 99.6 5 (92-96); PCO2 - POC 39 mmHg (35-45); PO2 - POC 174 mmHg (80-100); Potassium - POC 3.7 mmol/L (3.6-5.0); Sodium - POC 141 mmol/L (135-145); pH - POC 7.39 (7.35-7.45)
[2023-08-06] MEDS: NSS IV (12:00)
--- NOTE | 2023-08-06 12:27 | CON.CRS ---
Consultation
-
Date/Time Consultation Requested: 08/06/2023, 8:02
Date/Time Consultation Performed: 08/06/2023, 8:30
Requesting Provider: Lashonda Fuentes CRNP
Performing Provider: Wilman Padilla MD
Reason for Consultation: rectal bleeding
Medical History
-
Chief Complaint: Rectal bleeding
History of Present Illness:
78-year-old male with a history of CAD status post CABG x 3, A-fib, PAD, tobacco use disorder, presents for an elective 5 lateral femoral endarterectomy and vascular intervention for AAA and bilateral femoral artery stenosis. He underwent a
bilateral femoral artery cutdown, endarterectomy with bovine patch angioplasty, retrograde balloon angioplasty, IV lithotripsy and stenting of the left iliac artery, endovascular repair using physician modified aortic endograft yesterday by
Esha on 08/05/2023. It was noted earlier this morning and the patient had episodes of bright red blood per rectum and was started on a Cardene drip due to hypertension. He then began spiking temperatures up to 101.0. The patient states he has no
abdominal pain. He is currently still bleeding this morning. He denies abdominal distention. Given these findings, we were consulted for further surgical evaluation.
Past Medical History
Past Medical History: Arrhythmias (Atrial fibrillation), CAD (Status post CABG and stents), COPD, HTN, Hypercholesterolemia, UT (NSTEMI) and Other (History of skin cancer, PAD, SVT status post ablation, history of alcohol abuse, history of
diverticulosis)
Past Surgical History: Cardiac (Cardioversion, cardiac ablation, CABG x 3, Bilateral femoral artery cutdown, endarterectomy with bovine patch angioplasty, retrograde balloon angioplasty, IV lithotripsy, and stenting of left iliac artery,
endovascular aneurysm repair using physician modified aortic endograph )
Social History
Tobacco: Smoker (1 pack/day x 60 to 65 years)
Alcohol: Former
Drug: None
Family History
Family History: Reviewed & Not Pertinent
Allergies / Home Medications
Allergy/AdvReac Type Severity Reaction Status Date / Time
Benzodiazepines Allergy works Verified 08/05/23 06:41
opposite-
gets
agitated
codeine Allergy gets wild- Verified 08/05/23 06:41
hallucinations,
visual
diazepam Allergy agitated + Verified 08/05/23 06:41
nervous
Medication Instructions Recorded Confirmed Type
cetirizine 10 mg tablet 10 mg PO PRN PRN allergy 07/07/13 08/05/23 History
acetaminophen 325 mg tablet 650 mg PO PRN PRN pain 11/12/21 07/28/23 History
cholecalciferol (vitamin D3) 50 2,000 units PO DAILY@1200 11/12/21 08/05/23 History
mcg (2,000 unit) tablet Supplement
diltiazem HCl 300 mg 300 mg PO DAILY Arrhythmia 11/12/21 08/05/23 History
capsule,extended release 24 hr
docusate sodium 100 mg capsule 100 mg PO DAILY@1200 Constipation 11/12/21 08/05/23 History
multivitamin with folic acid 400 1 tab PO DAILY@1200 Supplement 11/12/21 08/05/23 History
mcg tablet (Tab-A-Samir)
tiotropium bromide 1.25 2 puff inhalation R DAILY PRN 11/12/21 08/05/23 History
mcg/actuation mist for inhalation sob/wheezing
(Spiriva Respimat)
lisinopril 5 mg tablet 5 mg PO NOON 05/08/23 08/05/23 History
vitamin B complex 1 cap PO DAILY@1200 05/08/23 08/05/23 History
zinc acetate 50 mg (zinc) capsule 50 mg PO DAILY@1200 05/08/23 08/05/23 History
apixaban 5 mg tablet (Eliquis) 5 mg PO BID Blood clot 05/10/23 08/05/23 Rx
prevention/tx #0 tabs
rosuvastatin 40 mg tablet (Crestor) 40 mg PO HS High cholesterol #0 05/10/23 08/05/23 Rx
tabs
folic acid 400 mcg tablet 0.4 mg PO DAILY 07/28/23 08/05/23 History
Review of Systems
-
History Source: Patient
Abdomen/GI: Bloody Stools
A 10 point review of systems was completed, and was negative except as per HPI.
Physical Exam
Vital Signs
Temp 100.5 F H 08/06/23 09:51
Pulse 94 08/06/23 09:30
Resp Rate 15 08/06/23 09:30
Blood pressure 157/75 08/06/23 08:11
SaO2 94 08/06/23 09:30
08/05/23 08/06/23 08/07/23
06:59 06:59 06:59
Actual Weight 80.739 kg 80.3 kg
Body Mass Index (BMI) 25.4
Lab Results / Allergies
08/06/23 03:27
WBC 25.3 10^3/uL (4.8-10.8) H 08/06/23 03:27
Hgb 10.9 g/dL (13.0-18.0) L 08/06/23 03:27
Hct 30.6 % (39.0-52.0) L 08/06/23 03:27
Plt Count 192 10^3/uL (130-400) 08/06/23 03:27
Abs Immat Gran (auto) 0.0 10^3/uL (0-0.05) 07/31/23 09:17
Neutrophils % 67.8 % (42.2-75.2) 07/31/23 09:17
Allergy/AdvReac Type Severity Reaction Status Date / Time
Benzodiazepines Allergy works Verified 08/05/23 06:41
opposite-
gets
agitated
codeine Allergy gets wild- Verified 08/05/23 06:41
hallucinations,
visual
diazepam Allergy agitated + Verified 08/05/23 06:41
nervous
Physical Exam
General: Well Developed, Well Nourished and No Apparent Distress
GI: Soft, Non Tender and Non Distended
Neuro: AO x 3
Data Reviewed
-
Labs: Labs Reviewed by me, Discussed with Physician and Discussed with Patient
Old Records: Reviewed
Assessment / Plan
-
Assessment: 78-year-old male postop day 1 from a by lateral femoral artery cutdown, endarterectomy bovine patch neoplastic, retrograde balloon angioplasty, IV lithotripsy and stenting of left iliac artery and endovascular aneurysm repair now with
bright red blood per rectum since this morning.
Plan:
Given sudden onset of bright red blood blood, will perform a flexible sigmoidoscopy urgently. If findings indicate necrotic bowel, will bring to the operating room for a colectomy with possible colostomy creation. Wound RN for colostomy marking.
Tapwater enema now. Remain NPO. 2 units of blood on-call for the OR. Family to be updated. Discussed with patient and vascular surgery.
--- NOTE | 2023-08-06 14:31 | W.IMMPOSTOP ---
Documented by User: GREG Mccarthy Do 08/06/23 14:44
Surgical Immed Post Op Note
-
Primary Surgeon: Wilman Padilla MD
Assisting Surgeon: and VICKEY Mosley Do
Pre-op Diagnosis: Ischemic Colitis
Post-op Diagnosis: Ischemic Colitis
Procedure Performed: Flexible sigmoidoscopy and colectomy with a colostomy
Anesthesia Type: General Endotracheal
Specimen / Cultures: Colon (Transverse to Rectosigmoid). Proximal end has suture.
Segment of Rectosigmoid Colon. Proximal end has suture.
Estimated Blood Loss: 50cc
Complications: None
Operative Findings: Ischemic Colitis (transverse to rectosigmoid colon)
Stoma in Left Upper Quadrant
Drain in Right lower quadrant

Documented by User: Tripp Padilla MD 08/06/23 14:49
Surgical Immed Post Op Note
-
Primary Surgeon: Wilman Padilla MD
Assisting Surgeon: RACHELE Rivera and VICKEY Mosley Do
Pre-op Diagnosis: Ischemic Colitis
Post-op Diagnosis: Ischemic Colitis
Procedure Performed: Flexible sigmoidoscopy, open left colectomy with takedown of splenic flexure and end distal sigmoid colostomy; mesenteric angiography with Spy
Anesthesia Type: General Endotracheal
Specimen / Cultures: Left colon (suture is distal).
Segment rectum (suture and open end is distal)
Estimated Blood Loss: 50cc
Complications: None
Operative Findings: Moderate ischemic Colitis (transverse to rectosigmoid colon)
Distal transverse colostomy
Seprafilm around the stoma and under the incision
#19 Will drain at the rectal stump
Nasogastric tube palpated in the fundus of the stomach
Patient's updated.
[2023-08-06 14:36] VITALS: BP 166/90
[2023-08-06 14:40] VITALS: BP 142/77
[2023-08-06 14:46] VITALS: BP 142/77
--- NOTE | 2023-08-06 14:50 | CM ---
Forensic Ballistics Expert attempted to do initial assessment.
Pt in OR. Pts not in room. Per global marketing operations manager having issues with phones
There is no home phone number.
CM will attempt to speak with pt/family at another time
[2023-08-06] MEDS: DILAUDID 0.5 MG IV ×3 (14:52→23:51)
--- NOTE | 2023-08-06 15:15 | PTCARENOTE ---
Additional assessment- NG tube taped at the 60 cm alicia. L nare
--- NOTE | 2023-08-06 15:15 | PTCARENOTE ---
Rec'd pt directly back from the OR via bed at 1435. Rec'd pt very sleepy but arousable and very restless trying to roll side to side. C/o his abd hurting him. Medicated at 1450 with Dilaudid 0.5 mg IV. MERRILL. Skin is pale pink wm and dry .Core temp
98.5. Bilateral groin STEPHEN dressings remain unchanged. Sites wnl. R groin dressing with old bloody drainage no increase from earlier. L remains D+I. Now with lower abd midline incision with aquacell dressing that is D+I. RLQ PRAKASH drain to bulb
suction draining sang drainage. Respirs are unlabored -Rec'd pt on 6L nc with sats of 95%. BS are coarse posteriorly. Monitor Afib with isolated PVC's. HR 105-108. IV Cardizem continues to infuse via R IJ Cordis at 15 mg/hr along Normosol at 150
ml/hr-will change management expert to NSS at 150 ml/hr per md order. L radial A line remains intact-initally running sl higher than the cuff but overall is congurent. MAP's tend to run 93-98 [address] Cory and Randy aware. Waveform as documented. Zeroed and
recalibrated. Site wnl. + pulses. PT and DP pulses with the doppler. Legs are warm . Bilat knee high SCD' sin place. Abd is tender to palpation. No bowel sounds noted. L nare [place] to cont suction. Draining brownish/bloody secretions. L abd
colostomy-stoma is pink, scant amt of bloody drainage. Thermistor dotson intact for yellow sl cloudy urine. Turned and repositioned. Mouth care given. Repositioned. in to see pt and updated. Will monitor closely
--- NOTE | 2023-08-06 15:50 | PTCARENOTE ---
Sleeping post Dilaudid. in to see pt and updated. VS as documented. Will contiue to monitor. Vancomycin 2 gms hung via R cordis. Cardizem moved to R forearm IV site. Abd dressing remains D+I.
[2023-08-06] MEDS: VANCOCIN 540 MG IV (15:51)
[2023-08-06 16:05] VITALS: BP 137/84
[2023-08-06] MEDS: LUMINAL 97.2000000000000028 MG PO ×2 (16:47→22:53)
[2023-08-06 16:48] LABS: Hematocrit 28.8 % (39.0-52.0); Hemoglobin 10.2 g/dL (13.0-18.0); Mean Corp Hgb Conc. 35.4 g/dL (33.0-37.0); Mean Corpuscular Hgb 32.9 pg (27.0-31.0); Mean Corpuscular Volume 92.9 fL (80.0-94.0); Mean Platelet Volume 10.4 fL (7.4-10.4); Platelet Count 184 10^3/uL (130-400); Red Cell Dist. Width 14.4 % (11.5-14.5); Reticulocyte Count 1.7 % (0.4-2.8); White Blood Cell Count 22.7 10^3/uL (4.8-10.8)
--- NOTE | 2023-08-06 16:50 | PTCARENOTE ---
Pt had been sleeping soundly since earlier Dilaudid then woke up and was writhing in abd pain again. Restless when awake. Remedicated wtih Dilaudid 0.5 mg IV. Labs sent as ordered. Repositioned. Phenobarb given as ordered and NG clamped for 30 min.
Family in to see pt and updated. VS as documented.
[2023-08-06 16:58] LABS: Blood Urea Nitrogen 16 mg/dl (9-20); Calcium 7.4 mg/dl (8.4-10.2); Carbon Dioxide 25 mmol/L (22-30); Chloride 106 mmol/L (98-107); Estimated Creatinine Clearance 88 ml/min; Glucose 185 mg/dl (70-99); Potassium 3.9 mmol/L (3.5-5.1); Sodium 134 mmol/L (135-145); eGFR > 60.00
[2023-08-06 17:07] LABS: Absolute Neutrophils -Man Diff 21.7 10^3/uL (1.4-6.5); Band Neutrophils 17 % (0-3); Lactic Acid 3.8 mmol/L (0.7-2.0); Lymphocytes 2 % (20-51); Metamyelocytes 1 % (-); Monocytes 1 % (2-9); Normal RBC Morphology Yes; Platelets Checked Yes; Segmented Neutrophils 79 % (42-75); Total Cells Counted 100
[2023-08-06] MEDS: ROXICODONE 5 MG PO (18:02)
--- NOTE | 2023-08-06 18:05 | PTCARENOTE ---
ABd xray taken per protocol if meds being given via tube. Restless- moaning, c/o abd pain. Medicated with Oxycodone 5 mg via NG. NG clamped after. Douglas completed and Sandra hung. Small spot of drainage on aquacell dressing otherwise unchanged.
Repositioned. Tolerating 4l nc since 1629
[2023-08-06] MEDS: DILAUDID 1 MG IV (21:04)
[2023-08-06 21:34] LABS: Lactic Acid 2.5 mmol/L (0.7-2.0)
--- NOTE | 2023-08-06 22:00 | PTCARENOTE ---
Assumed care of patient at 1900. Patient drowsy but arousable. Anxious and restless at times. Afib on tele monitor with pvcs. Cardizem gtt infusing at 15 mg/hr. POX 94-96% on 4L nc. Lung sounds shallow/diminished. Colostomy flush, red. Scant
sanguineous drainage. +BS. Left nare NGT to suction. RLQ PRAKASH drain with sanguineous drainage. Midline aquacell dressing c/d/i. B/l groin STEPHEN drains intact and functioning. Balbuena draining yellow urine output. UOP 45-100 cc's an hour. VSS. IVFs
infusing through RIJ cordis. Left radial a-line leveled and zeroed. Lactic level rechecked at 2100 - 2.5.
[2023-08-07] VITALS (14 sets, daily range): BP systolic 107–147; BP diastolic 73–92; BMI 26.3
--- NOTE | 2023-08-07 00:04 | PTCARENOTE ---
No changes in assessment. Pt restless and grunting in bed. C/o abd pain. PRN Dilaudid administered. VSS. Cardizem gtt remains at 15 mg/hr. Afib with rate in the 100's.
[2023-08-07] MEDS: NSS 1000 IV ×3 (01:26→17:53)
[2023-08-07] MEDS: DILAUDID 1 MG IV ×2 (02:52→17:58)
[2023-08-07 03:53] LABS: Hematocrit 27.5 % (39.0-52.0); Hemoglobin 9.6 g/dL (13.0-18.0); Mean Corp Hgb Conc. 34.9 g/dL (33.0-37.0); Mean Corpuscular Hgb 32.8 pg (27.0-31.0); Mean Corpuscular Volume 93.9 fL (80.0-94.0); Mean Platelet Volume 10.4 fL (7.4-10.4); Platelet Count 154 10^3/uL (130-400); Red Blood Cell Count 2.93 10^6/uL (4.70-6.10); Red Cell Dist. Width 14.4 % (11.5-14.5); White Blood Cell Count 23.2 10^3/uL (4.8-10.8)
--- NOTE | 2023-08-07 03:55 | PTCARENOTE ---
Around 0300, pt awoken to increased abdominal pain. Restless in bed; groaning. HR in the 120-130's. Hypertensive. PRN Dilaudid administered. Repositioned for comfort. Abdomen tender, firm. Bowel sounds still present. Rest of assessment unchanged.
Right PRAKASH drain dressing changed. AM labs drawn. VSS.
[2023-08-07 04:05] LABS: Lactic Acid 1.7 mmol/L (0.7-2.0)
[2023-08-07 04:18] LABS: Blood Urea Nitrogen 16 mg/dl (9-20); Calcium 7.6 mg/dl (8.4-10.2); Carbon Dioxide 28 mmol/L (22-30); Chloride 107 mmol/L (98-107); Estimated Creatinine Clearance 77 ml/min; Glucose 153 mg/dl (70-99); Potassium 3.7 mmol/L (3.5-5.1); Sodium 134 mmol/L (135-145); eGFR > 60.00
[2023-08-07] MEDS: ZOSYN 50 IV ×3 (05:56→18:35)
[2023-08-07] MEDS: DILAUDID 0.5 MG IV ×5 (06:14→20:34)
[2023-08-07] MEDS: CARDIZEM 125 IV ×3 (06:19→23:08)
[2023-08-07] MEDS: HEPARIN 5000 UNITS SC ×2 (08:06→17:01)
[2023-08-07] MEDS: LUMINAL 97.2000000000000028 MG PO (08:07)
[2023-08-07] MEDS: NSS (PRESERVATIVE FREE) 10 ML IV (08:07)
[2023-08-07] MEDS: PROTONIX IV 40 MG IV (08:07)
[2023-08-07] MEDS: LOW STRENGTH ASPIRIN 81 MG PO (08:07)
--- NOTE | 2023-08-07 08:22 | W.PN.VS ---
Addendum entered and electronically signed by Zeb Rivera MD 08/07/23 11:06:
Seen and examined with ELIGIBILITY COUNSELOR Alfredo earlier this a.m. Agree with findings as noted below. No further events overnight. Afebrile. Abdomen soft. Diffusely tender, but no peritoneal signs. Stoma pink and viable. Groins flat bilaterally. Dressings
clean dry and intact. Feet are warm with dopplerable signals bilaterally. Labs all reviewed. Lactate cleared. White blood cell count down slightly to 23. Plan/as discussed and noted below. Discontinue arterial line. Continue n.p.o./IV
fluids/NG tube (NG tube and p.o. advancement per colorectal surgery). Will continue Balbuena for close urinary monitoring especially given persistent NG tube. Urine output good overnight.
Original Note:
Today's Communication / Plan
-
Patient seen and examined at bedside with Dr. Zeb Rivera, below plan reviewed with attending
Assessment/Plan
-
Assessment: 78-year-old male POD #2 Cutdown and open exposure of BILATERAL common femoral arteries, intravascular lithotripsy of calcified left common iliac artery stenosis, left external iliac artery stenosis, and left common femoral artery
stenosis, endovascular repair of saccular abdominal aortic aneurysm and smaller fusiform abdominal aortic aneurysm with physician modified aortic endograft: Cook Alpha 30-26-108 (back table fenestrations created for superior mesenteric artery and
bilateral renal arteries, 6 mm x 22 mm atrium iCast stent left renal artery; proximal postdilated to 8 mm, 7 mmx 39 mm [place] VBX right renal artery; proximal postdilated to 8 mm, Endologix AFX2 distal main body 28�60/16�40), BILATERAL common femoral
artery endarterectomies with patch angioplasty using bovine pericardium.
POD #1 Flexible sigmoidoscopy, open left colectomy with takedown of splenic flexure, division of rectum and distal transverse colostomy by colorectal Dr. Padilla
Plan:
NGT and ABD PRAKASH drain per colorectal management
Continue IV fluids
Zosyn to be discontinued today
Continue neurovascular checks
Discontinue arterial line
Continue pain management
Subjective Data
-
Date of Service: August 07, 2023
Patient seen and examined at bedside, reports intermittent abdominal pain that is well-managed with current pain medication. Denies pain at bilateral lower extremities. Reports intact motor and sensation function at bilateral lower extremities.
Denies nausea and vomiting.
Objective Data
-
Vital Signs
Temp Pulse Resp BP Pulse Ox
98.9 F 122 15 137/84 96
08/07/23 07:40 08/07/23 08:00 08/07/23 08:00 08/06/23 16:05 08/07/23 08:00
Intake and Output
08/06/23 08/07/23 08/08/23
06:59 06:59 06:59
Intake Total 1750 / 1915 3735 / 3735
Output Total 2710 / 2710 1775 / 1775
Balance -960 / -795 1959 / 1959
Intake:
Oral fluids 50 / 50 0 / 0
IV fluids (Total) 1700 / 1865 2835 / 2835
Cardizem 85 / 100 285 / 285
Nss 1,000 ml @ 125 mls/hr IV . 1540 / 1690 2550 / 2550
Q8H MARKO Rx#:[id number]
cardene 75 / 75 0 / 0
IV piggybacks 590 / 590
Amount instilled into GI Tube ( 310 / 310
Total)
[place] Sump 310 / 310
Output:
Drain Output (Total) 255 / 255
Right Lower Abdomen Damian- 255 / 255
Tello
Urine, Balbuena 2710 / 2710 1520 / 1520
Lab Results
08/07/23 03:43
08/07/23 03:43
Calcium 7.6 mg/dl (8.4-10.2) L 08/07/23 03:43
Magnesium 2.0 mg/dl (1.6-2.3) 08/07/23 03:43
Total Bilirubin 0.6 mg/dl (0.2-1.3) 08/06/23 03:27
Direct Bilirubin 0.5 mg/dl (0.0-0.4) H 08/06/23 03:27
AST 111 U/L (17-59) H 08/06/23 03:27
ALT 46 U/L (0-50) 08/06/23 03:27
Alkaline Phosphatase 84 U/L (38-126) 08/06/23 03:27
Total Protein 6.3 g/dl (6.3-8.2) 08/06/23 03:27
Albumin 3.5 g/dl (3.5-5.0) 08/06/23 03:27
Physical Exam
-
AAOx3
No dyspnea
ABD distended, tenderness particular over midline incision, ostomy present, midline dressing CDI
Bilateral groin sites CDI, flat no evidence of hematoma
Right DP pulse 1 palpable, left DP by Doppler
Bilateral feet warm
--- NOTE | 2023-08-07 08:37 | W.PN.INTV ---
Today's Communication / Plan
Recommendations
Pain control
Keep NGT to suction and clamp as per colorectal surgery
Titrate cardizem gtt to keep HR<110
Maintain MAP 70-90
Goal SpO2 >88%
Trend Hb
Start Duonebs given his moderate COPD and takes Spiriva at home
Continue ICU level of care
Assessment
-
Assessment: 78-year-old male with a PMHx of PAD s/p kissing iliac stents bilaterally, AAA, COPD, tobacco use disorder, CAD s/p CABG x3 and A-fib s/p multiple failed cardioversions who presents with elective bilateral femoral endarterectomy and
vascular intervention for AAA. 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 He also has high-grade stenosis
involving the left external iliac artery extending into the common femoral artery. Open surgical repair was reviewed and that was considered too risky, hence best approach was a hybrid surgical approach - on 08/05/2023 the pt underwent bilateral
femoral cutdowns, femoral endarterectomies with patch angioplasty and then eventually retrograde balloon angioplasty with stenting of the left iliac artery and endovascular repair of his aortic aneurysm. Patient underwent that surgery with 500 cc
EBL and no immediate complications, and TRX to the ICU postoperatively and broadcasting equipment mechanic service is consulted for additional management/recommendations.
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
+ 1994), history of diverticulosis, history of NSTEMI
Impression:
#Bilateral femoral artery stenosis s/p cutdown with endarterectomy with bovine patch angioplasty & left iliac artery stenting (POD #2)
#AAA s/p EVAR using physician modified aortic endograft (POD #2)
#Rectal bleeding/BRBPR due to ischemic colitis s/p flexible sigmoidoscopy with open left colectomy with takedown of splenic flexure and end-distal sigmoid colostomy (POD#1)
#Lactic acidosis due to ischemic colitis (likely as an unfortunate complication from the EVAR) - lactate normalized as of today
#Acute respiratory failure with hypoxemia on supplemental oxygen
#Leukocytosis
#Anemia - due to ischemic colitis as above
#A-fib with RVR on cardizem gtt
#Hx of COPD (moderate severity per spirometry from 2019)
Plan:
Hemodynamically and neurovascularly intact
Wean supplemental oxygen with goal SpO2 >88%
Pain control but monitor for worsening sedation
Incentive spirometry encourage
Aspiration precautions
Uses spiriva at home --> I will order DuoNebs for now
Maintain MAP>70-90mmHg
Titrate cardizem gtt to keep HR<110bpm
Once NGT is off suction and we can give PO meds, then will consider starting PO metoprolol or raise his home cardizem dose
Monitor hemoglobin with serial CBC
Transfuse if needed to maintain Hb>7g/dL, plt>50k
Monitor blood sugars with goal BG 140-180mg/dL
Insulin supplementation if needed
Neuro and vascular checks per protocol also continue
Post-operative management as per vascular surgery and colorectal surgery - operation notes reviewed and recs appreciated
DVT prophylaxis recommended: HSQ
Nutrition
Increase activity/physical therapy
Continue ICU level of care given he is maxed out on cardizem drip and still has uncontrolled tachycardia, and needs close monitoring to ensure pain is adequately controlled.
Critical care statement: A total of 40 minutes of critical care time was provided for this patient today. This includes management of unstable vital signs, evaluation of the patient at bedside, reviewing the patient's pertinent medical records
including radiographs, microbiology, laboratory evaluations, and discussion with primary team, consultants, pharmacy, nutrition, physical therapy, case management, charge nurse, critical care nursing, and respiratory therapy.
I personally reviewed the patient's pertinent medical records including radiographs, microbiology, laboratory evaluations, and discussion with primary team, consultants, pharmacy, nutrition, physical therapy, case management, charge nurse, critical
care nursing, and respiratory therapy.
Data:
Abd XR 08-06-2023:
Feeding tube placement as described above.
Moderate fecal material in the colon. Stable
Postsurgical change of the abdomen.
Prior Spirometry: 12/2019
FEV1/FVC: 45
FEV1: 1.71L (58% predicted)
FVC: 3.76L (93% predicted)
[id number]%: 18%
Subjective Dataa
Subjective Data
Date of Service:
Date of Service: August 07, 2023
Chief Complaint: Nutrition Tech Follow Up
Subjective:
Seen this AM. HR 119 - on cardizem gtt at 15mg/hr. BP 140/92. Still has abd pain. No additional bleeding seen. Hb 9.6 this AM. NGT is to suction. SpO2 93% on 3L/min. He also endorses anxiety. Small amount of blood seen in colostomy bag but
no active bleeding seen.
Review of Systems
General: Other (negative unless mentioned above)
Objective Data
Data Reviewed
Vital Signs / I&O / Oxygen:
Vital Signs
Temp Pulse Resp BP Pulse Ox
99.1 F 117 13 137/87 93
08/07/23 08:00 08/07/23 09:30 08/07/23 09:30 08/07/23 08:15 08/07/23 09:30
Intake and Output
08/06/23 08/07/23 08/08/23
06:59 06:59 06:59
Intake Total 1750 / 1915 3735 / 3875 480 / 480
Output Total 2709 / 2710 1775 / 1825 165 / 165
Balance -960 / -795 1959 / 2049 315 / 315
SaO2 93
Nasal Cannula flow liters per 3
minute
Physical Exam
General: Respiratory Distress (n) and Chills (negative)
HEENT: Normocephalic and Anicteric
Cardiovascular: Irregular Rhythm, Peripheral Edema (negative) and Other (tachycardic)
Respiratory: Clear, Wheeze (negative) and Crackles (negative)
GI: Soft, Non Distended, Tender (ashlyn-umbillical region without peritoneal signs), NG Tube and Other (Colostomy in place with small amount of bright red blood seen in bag; no clots seen)
Neurology: Tremors (negative) and Other (sleepy but easily arousable and answering my questions appropriately)
Skin: Warm, Dry and Other (toes are cool to touch bilaterally)
Labs/Micro/Reports
Lab Data
08/07/23 03:43
08/07/23 03:43
--- NOTE | 2023-08-07 09:00 | PTCARENOTE ---
Rec'd pt at 0715- pulse checks completed with offgoing shift. Rec'd pt groggy but restless and moaning. C/O abd pain and asking when he can have his pain medication- not due currently. Will move restlessly but not trying to get oob or pull at tubes.
Does awaken and speech is slow but clear. Oriented to place but needed to be reoriented to time and day. Does get intermittently forgetful. MERRILL. Skin is is pale pink wm and dry. Respirs are unlabored on 4L nc with sats of 94-95%. BS are decreased at
the bases with some intermittent audible fine exp wheezing anteriorly depending on how restless he is. Monitor AFib with PVC's. HR 120's when he is restless and moaning and when he relaxes and dozes back off rate is int the 115 range. Remains on IV
Cardizem at 15 mg/hr via R forearm IV Site. NSS infusing at 125 mls/hr via RIJ Cordis. Denies chest pain. L radial A line intact. Waveform as documented. Tends to run about 15 mm/hg higher than cuff BP. Good CMS check to distal extrem. + pulses.
Bilat PT and DP pulses with the doppler. Feet/legs are warm. No edema. Bilat groin STEPHEN dressings remain intact. Small amts of old drainage on R and scant amt on L. No swelling noted. Abd is round/distended and sl firm. + hypoactive BS. L omardixie Oliverm
NG at 60 cm alicia. Retaped. Draining small amts of brownish drainage via continuous suction. Meds given and clamped x30 min post per orders. Lower abd incison with small amt of drainage. Aquacell dressing remains intact. RLQ PRAKASH drain to bulb suction
draining serosang drainage. Thermistor dotson in place for yellow urine. Skin and mouth care given. Repositioned. Medicated with Dilaudid 0.5 mg IV at 0820 for 9/10 abd pain. Vascular surgery in to see pt. Call johnston in reach. Plan of care reviewed
with pt. Will monitor closely.
--- NOTE | 2023-08-07 09:25 | PTCARENOTE ---
Dozing after Dilaudid. Colorectal surgery in to see pt and will hold on giving meds via NG for now per surgery. Additional assessment. L abd colostomy stoma flush and red. Scant amt of bloody drainage.
--- NOTE | 2023-08-07 09:30 | PTCARENOTE ---
Dozing after Dilaudid. Colorectal surgery in to see pt and updated. Will hold on any more meds going down NG tube for now per surgery. Additional assessment. L abd colostomy with scant bloody drainage. Stoma is pink.
--- NOTE | 2023-08-07 10:15 | PTCARENOTE ---
L radial A line dc'd per md order. Pressure held over the site. No hematoma
--- NOTE | 2023-08-07 11:15 | W.PN.CRS1 ---
Today's Communication / Plan
-
Continue NG tube
Stoma nursing
Pain control
Assessment/Plan
-
POD#1 open left colectomy with takedown of splenic flexure and end distal sigmoid colostomy, ischemic colitis
1. Tachycardic but on cardizem gtt. Vitlas otherwise normal.
2. Continue NGT/NPO status. Strict NPO.
3. Wound RN for colostomy teaching.
4. Okay for heparin sq for DVT prophylaxis.
5. OOB as tolerated.
6. Hold on any anticoagulation for now besides for DVT prophylaxis.
7. Continue Balbuena today.
8. Continue PRAKASH drain.
9. Continue IV Zosyn antibiotics.
10. OR pathology pending.
11. On Dilaudid IV for pain control.
Subjective Data
Procedure
08/06/2023- open left colectomy with takedown of splenic flexure and end distal sigmoid colostomy, ischemic colitis
Subjective Data
Date of Service: August 07, 2023
Patient apparently had a lot of pain last night per nursing. He is not in pain right now as he just got Dilaudid. He has no nausea or vomiting. He has no complaints at this time.
Objective Data
-
Vital Signs
Temp Pulse Resp BP Pulse Ox
99.1 F 117 13 137/87 93
08/07/23 08:00 08/07/23 09:30 08/07/23 09:30 08/07/23 08:15 08/07/23 09:30
Intake & Output
08/06/23 08/07/23 08/08/23
06:59 06:59 06:59
Intake Total 1750 / 1915 3735 / 3875 480 / 480
Output Total 2710 / 2710 1775 / 1825 165 / 165
Balance -960 / -795 1959 315 / 315
Intake:
Oral fluids 50 / 50 0 / 0
IV fluids (Total) 1700 / 1865 2835 / 2975 420 / 420
Cardizem 85 / 100 285 / 300 45 / 45
Nss 1,000 ml @ 125 mls/hr IV . 1540 / 1690 2550 / 2675 375 / 375
Q8H MARKO Rx#:[id number]
cardene 75 / 75 0 / 0
IV piggybacks 590 / 590
Amount instilled into GI Tube ( 310 / 310 60 / 60
Total)
[place] Sump 310 / 310 60 / 60
Output:
Drain Output (Total) 255 / 255 40 / 40
Right Lower Abdomen Damian- 255 / 255 40 / 40
Tello
Urine, Balbuena 2710 / 2710 1520 / 1570 125 / 125
Lab Results
08/07/23 03:43
08/07/23 03:43
Physical Exam
-
General: No Acute Distress
Abdomen: Soft, Distended and Tender (Throughout)
Skin: Warm and Dry
Wound: Dressing in Place and Other (PRAKASH bloody)
--- NOTE | 2023-08-07 11:20 | PTCARENOTE ---
Dozed after earlier Dilaudid unless stimulated then will be drowsy but moan and c/o abd pain. or if he is being turned then will c/o back pain. Intermittently gets restless but not pulling at tubes. Remedicated with Dilaudid 0.5 mg IV for 02/16 abd
pain and generalized discomfort.
[2023-08-07] MEDS: NSS IV (12:40)
[2023-08-07] MEDS: LOPRESSOR 5 MG IV (12:45)
--- NOTE | 2023-08-07 12:50 | PTCARENOTE ---
Assessement overall is unchanged. Dozing off and on unless disturbed. Currently on 2l nc and sats anywhere from 92-94%- at times it is out of his nose and his sats dip to 89%. Has remained overall tachy all day even with dozing his rate is in the
114 -118 range up into the mid 120's when awake. Afib with PVC's. Cardizem remains at 15 mg/hr. Per MD order- Lopressor 5 mg IV given and HR dicreased to 99-102 range. No additional drainage from Colostomy. NG with small amts of clear/brownish
secretions. VS as documented. Pts in to see him and updated. Repositioned. Call johnston in reach. Will continue to monitor
[2023-08-07] MEDS: OFIRMEV 100 IV ×2 (13:33→20:01)
--- NOTE | 2023-08-07 14:21 | WOUNDNOTE ---
WOC RN Note: Patient s/p distal transverse colostomy LUQ. Stoma pink and flush. Ostomy appliance intact. Ostomy supplies ([place] wafer # [id number], [place] seals and [place] pouch #[id number]) and colostomy ostomy teaching folder given. Patient gave
verbal permission to order a Yasmany ostomy secure starter kit.
--- NOTE | 2023-08-07 14:30 | PTCARENOTE ---
Dozing most of the afternoon- HR Remains 100-110 Afib. No other changes
--- NOTE | 2023-08-07 15:13 | CM ---
CM following re: discharge planning.
Reviewed pt's chart, met with pt and pt's spouse Tabitha at bedside.
Pt is a 78 year old male, admitted with primary dx of POD 1 flexible sigmoidoscopy, Grissom's procedure for ischemic colitis.
Pt has been sleeping entire interview, information obtained brom pt's spouse Tabitha. Pt lives with spouse 2SH, 5 + 7 steps to enter, has 2 supportive sons. pt's spouse described the pt as 'functional alcoholic' has been drinking for all his life,
used to drink heavier and now he has been drinking 6 packs of beer daily. Pt's spouse stated she supplies beer for him and she tried to control his drinking habit by cutting down. Per spouse pt ambulates with a walker, had [facility] in the past. No SNF
history. Pt's spouse stated she will bring her back home at discharge and she is requested [facility]. A referral to [facility] made.
Pt referred to [facility] for educational purposes regarding alcohol abuse.
PCP: Tabitha Carney
Pharmacy: [facility]
D/C plan: home with [facility] and family support.
CM will follow with discharge plan updates as hospitalization progresses.
--- NOTE | 2023-08-07 15:16 | PN.CDI ---
CDI
- -
CDI:
Physician Documentation Request
Admit Date: 08/05/23 05:57
Dear Doctor Randy,
Please review the following and provide your response in the progress notes.
Clinical Indicators:
Pt admitted with Bilateral femoral artery stenosis s/p cutdown and stenting/EVAR on 08/05
Now with concern for ischemic colitis flexible sigmoidoscopy, Grissom's procedure done
Operative report 08/06,'POSTOPERATIVE DIAGNOSIS: Ischemic left colon.... There were moderate to severe ischemic areas throughout.There was no geoff gangrene. The ischemia persisted down to the proximal to mid rectum.... '
Clarify which of the following accurately represents the acuity of the ( Ischemic Colitis )
Acute Ischemic Colitis
Acute on Chronic Ischemic Colitis
Chronic Ischemic colitis
Other
Use of terms such as suspected, likely, concern for, or probable (associated with a specific diagnosis that is being evaluated, monitored, or treated as if it exists) are acceptable and can be coded in the inpatient setting, when documented at the
time of discharge.
Thank you,
Emely Monaco RN
CDI Specialist
[place] [facility]
Please use your independent medical judgment in providing your response.
--- NOTE | 2023-08-07 15:25 | PN.CDI ---
CDI
- -
CDI:
Physician Documentation Request
Admit Date: 08/05/23 05:57
Dear Doctor Esha/ARCHITECTURE ANALYST
Please review the following and provide your response in the progress notes.
Clinical Indicators:
The diagnosis of Atelectasis was included in the signed post op CXR
Additional clinical indicators in the chart include:
CXR 08/06 ,' Minor atelectasis has developed in the medial right lung base.
Per Orders Incentive Spirometer
Please indicate in your progress notes if you are in agreement that the above diagnosis is valid for this patient:
____ - Atelectasis is a valid diagnosis (Please include it in your progress notes)
____ - Atelectasis is not a valid diagnosis for this patient
____ - Other
Use of terms such as suspected, likely, concern for, or probable are acceptable for a diagnosis that is being evaluated, monitored or treated as if it exists and can be coded in the inpatient setting, when documented at the time of discharge.
Thank you,
Emely Monaco RN
CDI Specialist
[place] [facility]
Please use your independent medical judgment in providing your response.
--- NOTE | 2023-08-07 15:29 | PN.CDI ---
CDI
- -
CDI:
Physician Documentation Request
Admit Date: 08/05/23 05:57
Dear Doctor Esha,
Please review the following and provide your response in the progress notes.
Clinical Indicators:
Pt admitted with Bilateral femoral artery stenosis s/p cutdown and stenting/EVAR on 08/05/ESBL 500 ml
Now with concern for ischemic colitis/rectal bleeding flexible sigmoidoscopy, Grissom's procedure done 08/06/ESBL 50 ml
Insurance Checker note , ' Rectal bleeding/BRBPR due to ischemic colitis s/p flexible sigmoidoscopy with open left colectomy with takedown of splenic flexure and end-distal sigmoid colostomy (POD#1)...Anemia - due to ischemic colitis as above...'
Trended HGB/Hematocrits below
07/31/23
09:17
Hgb 13.7
Hct 39.7
08/05/23 08/06/23
17:04 03:27
Hgb 12.0L 10.9 L
Hct 35.0 L 30.6
08/06/23 08/07/23
16:36 03:43
Hgb 10.2 L 9.6 L
Hct 28.8L 27.5L
Based on the above, could you clarify, in your progress note, which of the following is the most likely type of anemia you are evaluating, monitoring and/or treating?
Acute blood loss anemia
Other Anemia ([please specify)
Use of terms such as suspected, likely, concern for, or probable (associated with a specific diagnosis that is being evaluated, monitored, or treated as if it exists) are acceptable and can be coded in the inpatient setting, when documented at the
time of discharge.
Thank you,
Emely Monaco RN
CDI Specialist
[place] [facility]
Please use your independent medical judgment in providing your response.
[2023-08-07] MEDS: KCL 260 MEQ IV (16:47)
--- NOTE | 2023-08-07 16:50 | PTCARENOTE ---
Assessment is overall unchanged. C/O abd pain. Restless, grimacing and admitting to abd pain. Remedicated at 1635 with Dilaudid 0.5 mg IV. Remains on 2l nc. Does get some audible upper airway exp wheezing with movement. HR has remained controlled in
the 98-100 range. Pulses unchanged. Colostomy with a small amt of bloody drainage. NG draining brownish drainage. [place] with serosang drainage. Incisions unchanged. KCL 20 meq rider and Ca++ gluconate 1 gm rider hung via R cordis. Cardizem gtt changed
to RAC site as R forearm site started leaking. Site dc'd. Repositioned.
[2023-08-07] MEDS: CALCIUM GLUCONATE 100 IV (17:00)
--- NOTE | 2023-08-07 18:00 | PTCARENOTE ---
KCL and Ca++ riders completed. Repositoned. C/o bad soreness all over but mostly his abdomen. Medicated with Dilaudid 1mg IV. No other changes
[2023-08-07] MEDS: DUONEB 3 ML INH (20:29)
[2023-08-07] MEDS: FLUSH (NSS) 2 FLUSH IV (20:34)
--- NOTE | 2023-08-07 20:52 | PTCARENOTE ---
Rec'd care of patient at 1900. Patient alert and oriented. Frequently forgetful. Anxious, restless. C/o abdominal pain 01/16. PRN IV Dilaudid administered. Afib with pvc's on tele monitor. Rate in the 90-100's (rate increased to 110-120's with
pain/restlessness). Cardizem gtt infusing at 15mg/hr. Afebrile. VSS. 2L nc maintained. POX 92-94%. Lung sounds shallow/diminished. Expiratory wheeze present. Scheduled breathing tx administered by RT. +BS (hypo). Abdomen firm/round/tender. Midline
dressing intact with scant old drainage. Colostomy red, flush. Small amount of sanguineous drainage in bag. RLQ PRAKASH drain with serosanguineous drainage. B/l groin STEPHEN drains intact and functioning. Balbuena draining yellow UOP. Safe environment
maintained.
[2023-08-08] VITALS (30 sets, daily range): BP systolic 98–158; BP diastolic 66–111; BMI 26.8
[2023-08-08] MEDS: ZOSYN 50 IV ×4 (00:19→18:06)
[2023-08-08] MEDS: DILAUDID 1 MG IV ×3 (00:20→07:22)
[2023-08-08] MEDS: HEPARIN 5000 UNITS SC ×3 (00:20→16:40)
--- NOTE | 2023-08-08 00:39 | PTCARENOTE ---
Assessment unchanged. VSS. Cardizem gtt @ 15mg/hr.
[2023-08-08] MEDS: NSS 1000 IV (02:18)
[2023-08-08] MEDS: OFIRMEV 100 IV ×3 (03:51→22:51)
[2023-08-08] MEDS: LOPRESSOR 5 MG IV ×2 (04:30→10:30)
[2023-08-08 04:36] LABS: Hematocrit 26.2 % (39.0-52.0); Mean Corp Hgb Conc. 34.4 g/dL (33.0-37.0); Mean Corpuscular Hgb 32.3 pg (27.0-31.0); Mean Corpuscular Volume 93.9 fL (80.0-94.0); Mean Platelet Volume 11.1 fL (7.4-10.4); Platelet Count 150 10^3/uL (130-400); Red Blood Cell Count 2.79 10^6/uL (4.70-6.10); Red Cell Dist. Width 14.6 % (11.5-14.5); White Blood Cell Count 19.1 10^3/uL (4.8-10.8)
--- NOTE | 2023-08-08 04:40 | PTCARENOTE ---
Pt remains with significant abdominal pain. Controlled with PRN IV Dilaudid. Around 0330, patient awoken to abdominal pain. Cursing at staff. HR up to 130's. Tachypneic and thrashing in bed. Repositioned and pain medication administered. HR remained
>110's after pain controlled. Lopressor administered.
[2023-08-08 06:46] LABS: Blood Urea Nitrogen 19 mg/dl (9-20); Calcium 8.2 mg/dl (8.4-10.2); Carbon Dioxide 30 mmol/L (22-30); Chloride 108 mmol/L (98-107); Estimated Creatinine Clearance 77 ml/min; Glucose 126 mg/dl (70-99); Magnesium 2.4 mg/dl (1.6-2.3); Potassium 3.7 mmol/L (3.5-5.1); Sodium 140 mmol/L (135-145); eGFR > 60.00
[2023-08-08] MEDS: CARDIZEM 125 IV ×2 (07:27→15:48)
[2023-08-08] MEDS: KCL 100 IV ×2 (07:32→14:31)
[2023-08-08] MEDS: NSS (PRESERVATIVE FREE) 10 ML IV (07:35)
[2023-08-08] MEDS: ASPIRIN 300 MG RECTAL (07:36)
[2023-08-08] MEDS: PROTONIX IV 40 MG IV (07:36)
--- NOTE | 2023-08-08 08:08 | PTCARENOTE ---
report received, assessments per work list. patient restless, intermittently confused, forgetful. reorients easily. c/o severe abdominal pain. medicated with Dilaudid per prn order. patient assessments per work list. increased dyspnea with exertion,
orthopnea. crackles noted bilateral bases. exertional wheezes persist post coughing and deep breathing. monitor afib with increased pvc, k rider infusing. Cardizem maintained@15 mg. Right cordis with good blood return. received patient on 4 liters,
required increase to 6 liters to keep pulse oximeter>90. abdomen distended, ngt to suction, draining green fluid. bowel sounds noted. colostomy stoma dark red in color. scant bloody fluid in bag. STEPHEN dressings, nallely in place. Doppler pulses. bed
alarm maintained, call johnston in reach. vascular at bedside, updated. orders received
[2023-08-08] MEDS: DUONEB 3 ML INH ×2 (08:15→20:43)
--- NOTE | 2023-08-08 08:16 | W.PN.INTV ---
Today's Communication / Plan
Recommendations
Pain control
Keep NGT to suction and clamp as per colorectal surgery
Titrate cardizem gtt to keep HR<110
Maintain MAP 70-90
Goal SpO2 >88%
Trend Hb
Continue Duonebs given his moderate COPD and takes Spiriva at home
Start phenobarbital low dose and consider starting precedex if agitation worsens
Assessment
-
Assessment: 78-year-old male with a PMHx of PAD s/p kissing iliac stents bilaterally, AAA, COPD, tobacco use disorder, CAD s/p CABG x3 and A-fib s/p multiple failed cardioversions who presents with elective bilateral femoral endarterectomy and
vascular intervention for AAA. 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 He also has high-grade stenosis
involving the left external iliac artery extending into the common femoral artery. Open surgical repair was reviewed and that was considered too risky, hence best approach was a hybrid surgical approach - on 08/05/2023 the pt underwent bilateral
femoral cutdowns, femoral endarterectomies with patch angioplasty and then eventually retrograde balloon angioplasty with stenting of the left iliac artery and endovascular repair of his aortic aneurysm. Patient underwent that surgery with 500 cc
EBL and no immediate complications, and TRX to the ICU postoperatively and manual arts therapy teacher service is consulted for additional management/recommendations.
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
+ 1994), history of diverticulosis, history of NSTEMI
Impression:
#Bilateral femoral artery stenosis s/p cutdown with endarterectomy with bovine patch angioplasty & left iliac artery stenting (POD #3)
#AAA s/p EVAR using physician modified aortic endograft (POD #3)
#Rectal bleeding/BRBPR due to ischemic colitis s/p flexible sigmoidoscopy with open left colectomy with takedown of splenic flexure and end-distal sigmoid colostomy (POD#2)
#Lactic acidosis due to ischemic colitis (likely as an unfortunate complication from the EVAR) - lactate normalized
#Acute respiratory failure with hypoxemia on supplemental oxygen - likely combo of PNA and pulmonary edema
#Leukocytosis
#Anemia - due to ischemic colitis as above
#A-fib with RVR on cardizem gtt
#Hx of COPD (moderate severity per spirometry from 2019)
#Alcohol use disorder - suspected to be going into withdrawal now
Plan:
Hemodynamically and neurovascularly intact
Wean supplemental oxygen with goal SpO2 >88%
Pain control but monitor for worsening sedation
Incentive spirometry encourage
Aspiration precautions
Uses spiriva at home --> I ordered DuoNebs q12hr for now
Continue Abx with Zosyn and complete 7 day course; check MRSA swab and if (+) then start IV vanco
Maintain MAP>70-90mmHg
Titrate cardizem gtt to keep HR<110bpm
Continue IV lopressor q6hr prn
Once NGT is off suction and we can give PO meds, then will consider starting PO metoprolol or raise his home cardizem dose
I asked when we can clamp NGT and start PO meds, and we will need to wait for stoma to be functional, as per colorectal surgery
Monitor hemoglobin with serial CBC
Transfuse if needed to maintain Hb>7g/dL, plt>50k
Monitor blood sugars with goal BG 140-180mg/dL
Insulin supplementation if needed
Neuro and vascular checks per protocol also continue
Start low dose phenobarbital; use precedex if agitation worsens
Post-operative management as per vascular surgery and colorectal surgery - operation notes reviewed and recs appreciated
DVT prophylaxis recommended: HSQ
Nutrition
Increase activity/physical therapy
Continue ICU level of care given he is maxed out on cardizem drip and has PVCs now, and is more SOB today. Low threshold to be intubated. He needs close monitoring to ensure pain is adequately controlled.
Critical care statement: A total of 43 minutes of critical care time was provided for this patient today. This includes management of unstable vital signs, evaluation of the patient at bedside, reviewing the patient's pertinent medical records
including radiographs, microbiology, laboratory evaluations, and discussion with primary team, consultants, pharmacy, nutrition, physical therapy, case management, charge nurse, critical care nursing, and respiratory therapy.
I personally reviewed the patient's pertinent medical records including radiographs, microbiology, laboratory evaluations, and discussion with primary team, consultants, pharmacy, nutrition, physical therapy, case management, charge nurse, critical
care nursing, and respiratory therapy.
Data:
CXR 08-08-2023:Interval development of ill-defined perihilar airspace opacities as well as ill-defined opacity within the right lung base. No significant effusions. Findings suspicious for pulmonary edema versus less likely multifocal pneumonia.
Abd XR 08-06-2023:
Feeding tube placement as described above.
Moderate fecal material in the colon. Stable
Postsurgical change of the abdomen.
Prior Spirometry: 12/2019
FEV1/FVC: 45
FEV1: 1.71L (58% predicted)
FVC: 3.76L (93% predicted)
MXZ40-76%: 18%
Subjective Dataa
Subjective Data
Date of Service:
Date of Service: August 08, 2023
Chief Complaint: Nibbler Operator Follow Up
Subjective:
No acute events reported from overnight. On cardizem gtt at 15mg/hr, HR 99, BP 134/66, SpO2 92% on 6L/min NC. CXR with worsening bilateral opacities. He appears more restless today. Confused at times.
Review of Systems
General: Other (Negative unless mentioned above)
Objective Data
Data Reviewed
Vital Signs / I&O / Oxygen:
Vital Signs
Temp Pulse Resp BP Pulse Ox
96.6 F L 107 10 113/76 95
08/08/23 08:11 08/08/23 09:00 08/08/23 09:00 08/08/23 09:00 08/08/23 08:30
Intake and Output
08/07/23 08/08/23 08/09/23
06:59 06:59 06:59
Intake Total 3735 / 3875 4430 / 4570 475 / 475
Output Total 1775 / 1825 2120 / 2120 150 / 150
Balance 1959 2310 / 2450 325 / 325
SaO2 95
Nasal Cannula flow liters per 6
minute
Physical Exam
General: Respiratory Distress (n) and Chills (negative)
HEENT: Normocephalic and Anicteric
Cardiovascular: Irregular Rhythm, Peripheral Edema (negative) and Other (tachycardic)
Respiratory: Clear, Wheeze (negative) and Crackles (negative)
GI: Soft, Non Distended, Tender (ashlyn-umbilical region without peritoneal signs), NG Tube and Other (Colostomy in place with small amount of blood seen in bag; no clots seen)
Neurology: Tremors (negative) and Other (sleepy but easily arousable and answering my questions appropriately)
Skin: Warm, Dry and Other (toes are cool to touch bilaterally)
Labs/Micro/Reports
Lab Data
08/08/23 04:06
08/08/23 06:02
[2023-08-08] MEDS: LR 1000 IV (09:00)
--- NOTE | 2023-08-08 09:34 | W.PN.VS ---
Addendum entered and electronically signed by Linwood Balbuena III, MD 08/08/23 12:17:
This patient was seen and examined with BEBA Garcia. I agree with the history and physical exam as well as the assessment and plan. I have the following additions:
Postop day 3 following PMEG and bilateral femoral endarterectomies
Postop course complicated by colonic ischemia requiring colectomy and colostomy
Clinically improved
HR better
Pain still an issue @ midline abd incision
Urine output remains excellent
Fluid balance is grossly positive
Abdominal dressing clean and dry
[place] dressings holding suction bilaterally
Feet warm bilaterally with robust Doppler signals
Transition to lactated Ringer's and decrease fluids to 75 an hour
Lasix
Gentle diuresis
Antiplatelet per rectum
Continue ICU monitoring
Will add ELEMENTARY SECRETARY for better pain control and continue IV Tylenol
Continue IV ABX
Signed:
Linwood Balbuena III, MD
[facility]
[phone] (cell)
Original Note:
Today's Communication / Plan
-
Patient seen and examined at bedside with Dr. Linwood Balbuena III, below plan reviewed with attending
Assessment/Plan
-
Assessment: 78-year-old male POD #3 Cutdown and open exposure of BILATERAL common femoral arteries, intravascular lithotripsy of calcified left common iliac artery stenosis, left external iliac artery stenosis, and left common femoral artery
stenosis, endovascular repair of saccular abdominal aortic aneurysm and smaller fusiform abdominal aortic aneurysm with physician modified aortic endograft: Cook Alpha 30-26-108 (back table fenestrations created for superior mesenteric artery and
bilateral renal arteries, 6 mm x 22 mm atrium iCast stent left renal artery; proximal postdilated to 8 mm, 7 mmx 39 mm [place] VBX right renal artery; proximal postdilated to 8 mm, Endologix AFX2 distal main body 28�60/16�40), BILATERAL common femoral
artery endarterectomies with patch angioplasty using bovine pericardium.
POD #2 Flexible sigmoidoscopy, open left colectomy with takedown of splenic flexure, division of rectum and distal transverse colostomy by colorectal Dr. Padilla
Plan:
NGT, ABD PRAKASH drain, and p.o. intake per colorectal management
Continue IV fluids, rate decreased and switch to LR
Reviewed antibiotics with colorectal surgery will continue Zosyn for 3 additional days postop
Continue neurovascular checks
Continue pain management, will switch to ELEMENTARY SECRETARY to see if that provides better pain management coverage for patient
Electrolytes repleted as needed
Concern for fluid overload, will provide x 1 dose 40 mg Lasix
Subjective Data
-
Date of Service: August 08, 2023
Patient seen and examined at bedside, reports continued abdominal pain at midline incision. Denies nausea, vomiting, fever, and chills.
Objective Data
-
Vital Signs
Temp Pulse Resp BP Pulse Ox
96.6 F L 107 10 113/76 95
08/08/23 08:11 08/08/23 09:00 08/08/23 09:00 08/08/23 09:00 08/08/23 08:30
Intake and Output
08/07/23 08/08/23 08/09/23
06:59 06:59 06:59
Intake Total 3735 / 3875 4430 / 4570 475 / 475
Output Total 1775 / 1825 2120 / 2120 150 / 150
Balance 1959 / 2049 2310 / 2450 325 / 325
Intake:
Oral fluids 0 / 0
IV fluids (Total) 2835 / 2975 3720 / 3860 420 / 420
Calcium gluconate 100 / 100
Cardizem 285 / 300 360 / 375 45 / 45
KCL rider 260 / 260
Nss 1,000 ml @ 125 mls/hr IV . 2550 / 2675 3000 / 3125 375 / 375
Q8H [facility] Rx#:[id number]
cardene 0 / 0
IV piggybacks 590 / 590 500 / 500
Amount instilled into GI Tube ( 310 / 310 210 / 210 30 / 30
Total)
[place] Sump 310 / 310 210 / 210 30 / 30
Output:
Drain Output (Total) 255 / 255 200 / 200
Right Lower Abdomen Damian- 255 / 255 200 / 200
Tello
Gastrointestinal tube output ( 460 / 460
Total)
[place] Sump 460 / 460
Urine, Balbuena 1520 / 1570 1460 / 1460 150 / 150
Lab Results
08/08/23 04:06
08/08/23 06:02
Calcium 8.2 mg/dl (8.4-10.2) L 08/08/23 06:02
Magnesium 2.4 mg/dl (1.6-2.3) H 08/08/23 06:02
Total Bilirubin 0.6 mg/dl (0.2-1.3) 08/06/23 03:27
Direct Bilirubin 0.5 mg/dl (0.0-0.4) H 08/06/23 03:27
AST 111 U/L (17-59) H 08/06/23 03:27
ALT 46 U/L (0-50) 08/06/23 03:27
Alkaline Phosphatase 84 U/L (38-126) 08/06/23 03:27
Total Protein 6.3 g/dl (6.3-8.2) 08/06/23 03:27
Albumin 3.5 g/dl (3.5-5.0) 08/06/23 03:27
Physical Exam
-
AAOx3
No dyspnea
ABD distended, tenderness particular over midline incision, ostomy present, midline dressing CDI, PRAKASH drain with serosanguineous output
Bilateral groin sites CDI, flat no evidence of hematoma
Right DP pulse 1 palpable, left DP by Doppler, bilateral PT by doppler
Bilateral feet warm
[2023-08-08] MEDS: LASIX 40 MG IV (09:50)
--- NOTE | 2023-08-08 10:03 | PTCARENOTE ---
ivf changed, lasix given per orders. 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
[2023-08-08] MEDS: DILAUDID PCA 30 IV (10:58)
--- NOTE | 2023-08-08 11:48 | W.PN.CRS1 ---
Addendum entered and electronically signed by Remington Ulloa MD 08/08/23 17:14:
I saw and examined the patient.
The PA's note was reviewed and I agree with the note.
Comment:
Seen in a.m. with PA.
Awake. Admitted to abdominal incisional discomfort.
Afebrile. Mildly tachycardic. White count 19.1 from 23.2.
Abdomen with appropriate tenderness. Dressings in place. Stoma viable without function.
Drain with serosanguineous output. NG tube with bilious output.
Continue antibiotics and ICU care.
Await bowel function.
Original Note:
Today's Communication / Plan
-
Continue NG tube
Await bowel function
Assessment/Plan
-
POD# 2 open left colectomy with takedown of splenic flexure and end distal sigmoid colostomy, ischemic colitis
1. Tachycardic but on cardizem gtt. vitals otherwise normal.
2. Continue NGT/NPO status.� Strict NPO. No medications down tube until bowel function returns.
3. Wound RN for colostomy teaching.
4. Okay for heparin sq for DVT prophylaxis.
5. OOB as tolerated.
6.� Hold on any anticoagulation for now besides for DVT prophylaxis.
7.� Strict I's and O's
8.� Continue PRAKASH drain.
9.� Continue IV Zosyn antibiotics. White blood cell count trending down.
10.� OR pathology pending.
11.� On Dilaudid IV for pain control.
12. Will consider TPN next week if bowel function does not return.
Subjective Data
Procedure
08/06/2023- open left colectomy with takedown of splenic flexure and end distal sigmoid colostomy, ischemic colitis
Subjective Data
Date of Service: August 08, 2023
Patient states he is in a lot of pain. He has not yet had bowel function. Besides the pain he has no other complaints.
Objective Data
-
Vital Signs
Temp Pulse Resp BP Pulse Ox
99.5 F 101 18 113/79 95
08/08/23 11:20 08/08/23 11:06 08/08/23 11:15 08/08/23 11:06 08/08/23 11:15
Intake & Output
08/07/23 08/08/23 08/09/23
06:59 06:59 06:59
Intake Total 3735 / 3875 4430 / 4570 760 / 760
Output Total 1775 / 1825 2120 / 2120 950 / 950
Balance 1960 / 2049 2310 / 2450 -190 / -190
Intake:
Oral fluids 0 / 0
IV fluids (Total) 2835 / 2975 3720 / 3860 600 / 600
Calcium gluconate 100 / 100
Cardizem 285 / 300 360 / 375 75 / 75
KCL rider 260 / 260
Lr 1,000 ml @ 75 mls/hr IV . 150 / 150
[id number] [facility] Rx#:[id number]
Nss 1,000 ml @ 125 mls/hr IV . 2550 / 2675 3000 / 3125 375 / 375
Q8H [facility] Rx#:[id number]
cardene 0 / 0
IV piggybacks 590 / 590 500 / 500 100 / 100
Amount instilled into GI Tube ( 310 / 310 210 / 210 60 / 60
Total)
[place] Sump 310 / 310 210 / 210 60 / 60
Output:
Drain Output (Total) 255 / 255 200 / 200
Right Lower Abdomen Damian- 255 / 255 200 / 200
Tello
Gastrointestinal tube output ( 460 / 460
Total)
[place] Sump 460 / 460
Urine, Balbuena 1520 / 1570 1460 / 1460 950 / 950
Lab Results
03/01/24 04:06
Physical Exam
-
General: No Acute Distress and AOx3
Abdomen: Soft, Non Distended and Tender (Throughout around incision site, mild)
Skin: Warm and Dry
Wound: Dressing in Place
--- NOTE | 2023-08-08 11:58 | PTCARENOTE ---
reassessed. nurse leader per orders. remains intermittently confused with inappropriate conversation, hallucinations.('hey isha, hand me that beer over there')unchanged from initial assessments. lungs with basilar crackles, using IS with cueing.
--- NOTE | 2023-08-08 12:48 | PTCARENOTE ---
patient remains intermittently confused, belligerent at times cursing at staff
--- NOTE | 2023-08-08 13:41 | CON.CAR ---
Addendum entered and electronically signed by Rasta Harris MD 08/08/23 16:04:
I saw and examined the patient.
The LOZENGE MAKER HELPER's note was reviewed and I agree with the note.
Comment:
78 year old male (known to Dr. Millan), with chronic CAD (no angina since CABG 2017), permanent atrial fibrillation (on Eliquis), PAD, AAA, HLD, and prior strokes (11/2021, 04/2023) presented for femoral artery stenosis and AAA who underwent:
bilateral femoral artery cutdown, endarterectomy with bovine patch angioplasty, retrograde balloon angioplasty, IV lithotripsy, and stenting of left iliac artery, endovascular aneurysm repair using physician modified aortic endograph�by Dr. Balbuena on
08/05/23. He has had a complicated hospital course requiring abdominal surgery with colectomy and ostomy placement. He has been in atrial fibrillation with RVR and has had frequent ectopy including PVCs and most recently today a run of
nonsustained VT. Given his critical illness and frequent ectopy including NSVT we will start amiodarone in addition to diltiazem.
- cont diltiazem gtt
- start amiodarone gtt
Original Note:
Consultation
Consultation Request
Date/Time Consultation Requested: 08/08/23 13:30
Date/Time Consultation Performed: 08/08/23 13:30
Requesting Provider: BEBA Mcgovern
Performing Provider: BEBA Gonzalez for Dr. Harris
Reason for Consultation: NSVT
Medical History
-
Chief Complaint: S/P EVAR
History of Present Illness:
Torrey Guajardo is a 78 year old male (known to Dr. Millan), with chronic CAD (no angina since CABG 2016), permanent atrial fibrillation (on Eliquis), PAD, AAA, HLD, and prior strokes (11/2021, 04/2023) presented for femoral artery stenosis and AAA who
underwent: bilateral femoral artery cutdown, endarterectomy with bovine patch angioplasty, retrograde balloon angioplasty, IV lithotripsy, and stenting of left iliac artery, endovascular aneurysm repair using physician modified aortic endograph�by
Dr. Balbuena on 08/05/23. Postoperatively he developed bloody stool in addition to leukocytosis lactic acidosis and fever. He then went to the OR with Dr. Padilla for flexible sigmoidoscopy and colectomy with a colostomy. He currently has an NG tube
and is awaiting return of bowel function. Cardiology was consulted for concern of NSVT on telemetry.
Past Medical History
Past Medical History: Arrhythmias (permanent atrial fibrillation), CAD, CVA, HTN, Hypercholesterolemia and AR
Past Surgical History: Cardiac
Social History
Tobacco: Smoker
Alcohol: None
Drug: None
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
Family History
Family History: Reviewed & Not Pertinent
Allergies / Home Medications
Allergy/AdvReac Type Severity Reaction Status Date / Time
Benzodiazepines Allergy works Verified 08/08/23 13:39
opposite-
gets
agitated
codeine Allergy gets wild- Verified 08/05/23 06:41
hallucinations,
visual
diazepam Allergy agitated + Verified 08/05/23 06:41
nervous
Medication Instructions Recorded Confirmed Type
cetirizine 10 mg tablet 10 mg PO PRN PRN allergy 07/07/13 08/05/23 History
acetaminophen 325 mg tablet 650 mg PO PRN PRN pain 11/12/21 07/28/23 History
cholecalciferol (vitamin D3) 50 2,000 units PO DAILY@1200 11/12/21 08/05/23 History
mcg (2,000 unit) tablet Supplement
diltiazem HCl 300 mg 300 mg PO DAILY Arrhythmia 11/12/21 08/05/23 History
capsule,extended release 24 hr
docusate sodium 100 mg capsule 100 mg PO DAILY@1200 Constipation 11/12/21 08/05/23 History
multivitamin with folic acid 400 1 tab PO DAILY@1200 Supplement 11/12/21 08/05/23 History
mcg tablet (Tab-A-Samir)
tiotropium bromide 1.25 2 puff inhalation R DAILY PRN 11/12/21 08/05/23 History
mcg/actuation mist for inhalation sob/wheezing
(Spiriva Respimat)
lisinopril 5 mg tablet 5 mg PO NOON Blood Pressure 05/08/23 08/05/23 History
vitamin B complex 1 cap PO DAILY@1200 Supplement 05/08/23 08/05/23 History
zinc acetate 50 mg (zinc) capsule 50 mg PO DAILY@1200 Supplement 05/08/23 08/05/23 History
apixaban 5 mg tablet (Eliquis) 5 mg PO BID Blood clot 05/10/23 08/05/23 Rx
prevention/tx #0 tabs
rosuvastatin 40 mg tablet (Crestor) 40 mg PO HS High cholesterol #0 05/10/23 08/05/23 Rx
tabs
folic acid 400 mcg tablet 0.4 mg PO DAILY Supplement 07/28/23 08/05/23 History
Review of Systems
-
History Source: Patient
All other systems: Negative unless noted
Respiratory: No Symptoms
Cardiac: No Symptoms
Abdomen/GI: No Symptoms
Physical Exam
Vital Signs
Temp Pulse Resp BP Pulse Ox
99.5 F 115 14 98/77 94
08/08/23 11:20 08/08/23 11:46 08/08/23 12:00 08/08/23 11:46 08/08/23 12:00
Lab Results
08/08/23 04:06
Physical Exam
General: Well Developed, No Apparent Distress and Comfortable
HEENT: Normocephalic and Moist Mucous Membranes
Respiratory: Clear and Non Labored Respirations
Cardiac: S1/S2 and Irregular Rhythm
Breast: Deferred by me
GI: Soft, Non Tender, Non Distended and Normal Bowel Sounds
Rectal: Deferred by Provider
Genito-urinary: No Costovertebral Tender
Musculoskeletal: No Clubbing and No Cyanosis
Skin: Warm and Dry
Neuro: AO x 3
Hematologic/Lymphatic: No Lymphadenopathy
Psych: Calm
Impression / Plan
-
NSVT, 30 beats
-No CP or palps with arrhythmia
-Prior ablation (2004?)
-LVEF 50-55% in 05/2023
-Amiodarone bolus given, ectopy continues start gtt
Permanent atrial fibrillation
-Rates elevated on diltiazem 15mg/hour
-Oral Anticoagulation: Eliquis 5mg BID pre op, currently none
-[id number]: score at least 6 (HTN, age 75 or more, prior Stroke/TIA, Vascular disease)
Abnormal troponin, likely nonischemic myocardial injury in the setting of acute illness
-Trend to peak
-No chest pain
AAA
B/L femoral artery stenosis
-Endovascular aneurysm repair using physician modified aortic endograph�
-Bilateral femoral artery cutdown, endarterectomy with bovine patch angioplasty, retrograde balloon angioplasty, lithotripsy and stenting of left iliac artery,
Ischemic colon S/P flexible sigmoidoscopy and colectomy with a colostomy on 08/06/[address] Padilla
PAD
-Severe bilateral ostial iliac artery stenoses successfully treated with kissing stents (Marcellus, 2014)
-Stenting of occluded left SFA and stenting of right external iliac artery (Marcellus, 2011)
CAD, PCI with stenting 1993 & 1994, CABG 2016, stable without CP
Prior CVAs
HLD, continue rosuvastatin 40mg when bowel function returns
Current smoker, cessation recommended
Data Reviewed
-
EKG: Report Reviewed by me (Atrial fibrillation with RVR, PVC, non specific ST abnormality, rate 111)
Medical Tests (Nuc Med, Echo etc): Report Reviewed by me (Echo 05/09/24: LVEF 50-55%. Mild concentric left ventricular hypertrophy. No significant valve disease.)
Labs: Labs Reviewed by me
Old Records: Reviewed
[2023-08-08 13:48] LABS: Blood Urea Nitrogen 19 mg/dl (9-20); Calcium 8.2 mg/dl (8.4-10.2); Carbon Dioxide 29 mmol/L (22-30); Chloride 107 mmol/L (98-107); Estimated Creatinine Clearance 69 ml/min; Glucose 127 mg/dl (70-99); Magnesium 2.3 mg/dl (1.6-2.3); Phosphorus 2.1 mg/dl (2.5-4.5); Potassium 3.6 mmol/L (3.5-5.1); Sodium 141 mmol/L (135-145); eGFR > 60.00
[2023-08-08] MEDS: CORDARONE 103 MG IV (14:08)
--- NOTE | 2023-08-08 14:09 | CM ---
CM following re: discharge planning.
Reviewed pt's chart, met with pt and pt's son at bedside.
Per Rounds meeting patient remains intermittently confused, belligerent at times, cursing at staff, hallucinating. .
Pt lives with spouse 2SH, 5 + 7 steps to enter, has 2 supportive sons. Pt's spouse described the pt as 'functional alcoholic' has been drinking for all his life, used to drink heavier and now he has been drinking 6 packs of beer daily. Pt's spouse
stated she supplies beer for him and she tried to control his drinking habit by cutting down. Per spouse pt ambulates with a walker, had [facility] in the past. No SNF history. Pt's spouse stated she will bring her back home at discharge and she
is requested [facility]. A referral to [facility] made.
[facility] following and will meet with the pt when clinically appropriate.
D/C plan: home with [facility] and family support.
CM will follow with discharge plan updates as hospitalization progresses.
[2023-08-08] MEDS: CORDARONE 518 MG IV (14:24)
[2023-08-08] MEDS: FOLVITE 50.2000000000000028 MG IV (14:45)
--- NOTE | 2023-08-08 15:07 | PTCARENOTE ---
Addendum entered by Keely Jones RN 08/08/23 15:49:
patient oxygen weaned to 15 liters mid flow
Addendum entered by Keely Jones RN 08/08/23 15:40:
patient pulled out ngt, placed in restraints. surgery updated. no orders to replace ngt at this time.
Original Note:
patient unable to understand metal casket assembler. taken from patient. patient with increasing dyspnea, tachycardia, run VT, confused and hallucinating, agitated. pulse oximeter 70's. dusky. period unresponsiveness during VT. pile driving technician, vascular updated. stat
labs sent. placed on rebreather mask, ekg done. amiodarone gtt bolus and gtt initaited. potassium rider initiated. pile driving technician updated with critical troponin.continues to diurese clear yellow urine. flask carrier consulted and at bedside.
[2023-08-08 15:08] LABS: Lactic Acid 1.8 mmol/L (0.7-2.0)
[2023-08-08] MEDS: PHENOBARBITAL 32.5 MG IV ×2 (15:38→20:19)
[2023-08-08] MEDS: PRECEDEX 100 IV ×2 (16:01→20:20)
--- NOTE | 2023-08-08 16:29 | VNURNOTE ---
Chart reviewed, [facility] referral to be made closer to discharge.
--- NOTE | 2023-08-08 16:31 | PTCARENOTE ---
Addendum entered by Keely Jones RN 08/08/23 17:16:
TT noted by vascular, they will change the dressing. awaiting vascular team. complete care given. patient remains confused, hallucinating and agitated. complete care given, reassessed. crackles 1/3 up bilaterally. remains on mid flow. monitor afib
with frequent pvc. amiodarone and cardizem per work list
Original Note:
precedex initiated, patient hallucinating, pulled off sybil dressing left groin. Vascular updated. mitts applied. precedex per work list
--- NOTE | 2023-08-08 16:32 | PN.CDI ---
CDI
- -
CDI:
Physician Documentation Request
Admit Date: 08/05/23 05:57
Dear Doctor
Please review the following and provide your response in the progress notes.
Clinical Indicators:
Pt admitted with Bilateral femoral artery stenosis s/p cutdown and stenting/EVAR on 08/05
Developed ischemic colitis/rectal bleeding flexible sigmoidoscopy, Grissom's procedure done 08/06
Documented per staff respiratory therapist note 08/07,' Acute respiratory failure with hypoxemia on supplemental oxygen - likely combo of PNA and pulmonary edema...
Per MAR did get 40 MG IV Lasix x1 today
Clarify which of the following accurately represents the acuity of the ( Pulmonary edema ).
Acute
Acute On Chronic
Chronic
Other
Use of terms such as suspected, likely, concern for, or probable (associated with a specific diagnosis that is being evaluated, monitored, or treated as if it exists) are acceptable and can be coded in the inpatient setting, when documented at the
time of discharge.
Thank you,
Emely Monaco RN
CDI Specialist
[place] [facility]
Please use your independent medical judgment in providing your response.
--- NOTE | 2023-08-08 16:41 | PN.CDI ---
CDI
- -
CDI:
Physician Documentation Request
Admit Date: 08/05/23 05:57
Dear Doctor,
Please review the following and provide your response in the progress notes.
Clinical Indicators:
Pt admitted with Bilateral femoral artery stenosis s/p cutdown and stenting/EVAR on 08/05
Developed ischemic colitis/rectal bleeding flexible sigmoidoscopy, Grissom's procedure done 08/06
Pt care note 08/07 @ 1507, ' patient pulled out ngt, placed in restraints...confused and hallucinating, agitated. pulse oximeter 70's. dusky. period unresponsiveness during VT.....'
Patient care note 08/07 @ 1631, ' Precedex initiated, patient hallucinating, pulled off sybil dressing left groin. Vascular updated. mitts applied...'
Information Systems Security Specialist note 08/07, ' Acute respiratory failure with hypoxemia on supplemental oxygen - likely combo of PNA and pulmonary edema...Alcohol use disorder - suspected to be going into withdrawal now..Start low dose phenobarbital; use Precedex if
agitation worsens....'
Based on the above, could you clarify in the Progress Notes and Discharge Summary which, if any of the following, is the most likely etiology of the confusion/altered mental status.
Multifactorial due to Toxic Metabolic Encephalopathy/ Alcohol withdrawal
Toxic Metabolic encephalopathy
Alcohol withdrawal only
Other
Use of terms such as suspected, likely, concern for, or probable (associated with a specific diagnosis that is being evaluated, monitored, or treated as if it exists) are acceptable and can be coded in the inpatient setting, when documented at the
time of discharge.
Thank you,
Emely Monaco RN
CDI Specialist
[facility]
Please use your independent medical judgment in providing your response.
[2023-08-08 17:33] LABS: Glucose - Point of Care 124 mg/dl (70-99)
--- NOTE | 2023-08-08 18:12 | PTCARENOTE ---
vascular laborer ammunition assembly at bedside, sybil dressing reapplied. patient remains intermittently agitated, yelling out. vividly hallucinating. precedex per work list
[2023-08-08 21:24] LABS: Troponin I 0.043 ng/ml
--- NOTE | 2023-08-08 22:30 | PTCARENOTE ---
Pt received at 19:00. Pt restless and agitated. Family at bedside. Pt oriented to self, hallucinating, yelling out. Precedex gtt continues, titrated as ordered. B/L DP and PT pulses present w/ doppler, radials palpable. Afib w/ PVCs, continues on
cardizem and amio gtts as ordered. Pt received on 15L MFNC, mouth breathing while asleep, placed on NRB. Colostomy present, small amount of maroon drainage. Hypoactive bowel sounds. L abd PRAKASH drain with bloody output. Balbuena remains in place, draining
yellow/smiley urine, approx 75ml/hr. STEPHEN dressings in place and flashing green. Pt continues to be restless and agitated when awake. Safe environment maintained, pt frequently repositions self.
[2023-08-09] VITALS (36 sets, daily range): BP systolic 99–162; BP diastolic 51–107; BMI 26.9
[2023-08-09 00:11] LABS: Glucose - Point of Care 139 mg/dl (70-99)
[2023-08-09] MEDS: HEPARIN 5000 UNITS SC ×3 (00:17→18:02)
[2023-08-09] MEDS: ZOSYN 50 IV ×4 (00:17→18:02)
[2023-08-09] MEDS: DUONEB 3 ML INH ×3 (02:52→20:28)
[2023-08-09 04:05] LABS: Hematocrit 23.9 % (39.0-52.0); Hemoglobin 8.3 g/dL (13.0-18.0); Mean Corp Hgb Conc. 34.7 g/dL (33.0-37.0); Mean Corpuscular Hgb 32.4 pg (27.0-31.0); Mean Corpuscular Volume 93.4 fL (80.0-94.0); Mean Platelet Volume 11.2 fL (7.4-10.4); Platelet Count 146 10^3/uL (130-400); Red Blood Cell Count 2.56 10^6/uL (4.70-6.10); Red Cell Dist. Width 14.6 % (11.5-14.5); White Blood Cell Count 19.4 10^3/uL (4.8-10.8)
[2023-08-09 04:21] LABS: Blood Urea Nitrogen 20 mg/dl (9-20); Calcium 8.3 mg/dl (8.4-10.2); Carbon Dioxide 31 mmol/L (22-30); Chloride 106 mmol/L (98-107); Estimated Creatinine Clearance 88 ml/min; Glucose 132 mg/dl (70-99); Magnesium 2.4 mg/dl (1.6-2.3); Phosphorus 2.3 mg/dl (2.5-4.5); Potassium 3.6 mmol/L (3.5-5.1); Sodium 141 mmol/L (135-145); eGFR > 60.00
[2023-08-09 06:22] LABS: Glucose - Point of Care 139 mg/dl (70-99)
[2023-08-09] MEDS: OFIRMEV 100 IV (06:31)
--- NOTE | 2023-08-09 07:11 | W.PN.VS ---
Today's Communication / Plan
-
as above
Assessment/Plan
-
Plan:
Continue gentle diuresis
Continue abx - ?pneumonia treatment
Continue neurovascular checks
Aggressive pulmonary toilet. Low threshhold for reintubation
Subjective Data
-
Date of Service: August 09, 2023
Patient disoriented this morning. Says he feels short of breath
Objective Data
-
Vital Signs
Temp Pulse Resp BP Pulse Ox
98.1 F 94 21 133/85 96
08/09/23 03:05 08/09/23 02:53 08/09/23 02:53 08/09/23 01:00 08/09/23 02:53
Intake and Output
08/08/23 08/09/23 08/10/23
06:59 06:59 06:59
Intake Total 4430 / 4570 2289.3 / 2289.3
Output Total 2120 / 2120 4005 / 4005
Balance 2310 / 2450 -1715.7 / -1715.7
Intake:
IV fluids (Total) 3720 / 3860 1629.3 / 1629.3
Calcium gluconate 100 / 100
Cardizem 360 / 375 270 / 270
KCL rider 260 / 260
Lr 1,000 ml @ 75 mls/hr IV . 375 / 375
[id number] MARKO Rx#:[id number]
Nss 1,000 ml @ 125 mls/hr IV . 3000 / 3125 375 / 375
Q8H MARKO Rx#:[id number]
amiodarone 333.5 / 333.5
precedex 275.8 / 275.8
IV piggybacks 500 / 500 600 / 600
Amount instilled into GI Tube ( 210 / 210 60 / 60
Total)
[place] Sump 210 / 210 60 / 60
Output:
Drain Output (Total) 200 / 200 60 / 60
Right Lower Abdomen Damian- 200 / 200 60 / 60
Tello
Gastrointestinal tube output ( 460 / 460 50 / 50
Total)
Kittson Sump 460 / 460 50 / 50
Urine, Balbuena 1460 / 1460 3895 / 3895
Lab Results
08/09/23 03:31
08/09/23 03:31
Calcium 8.3 mg/dl (8.4-10.2) L 08/09/23 03:31
Phosphorus 2.3 mg/dl (2.5-4.5) L 08/09/23 03:31
Magnesium 2.4 mg/dl (1.6-2.3) H 08/09/23 03:31
Total Bilirubin 0.6 mg/dl (0.2-1.3) 08/06/23 03:27
Direct Bilirubin 0.5 mg/dl (0.0-0.4) H 08/06/23 03:27
AST 111 U/L (17-59) H 08/06/23 03:27
ALT 46 U/L (0-50) 08/06/23 03:27
Alkaline Phosphatase 84 U/L (38-126) 08/06/23 03:27
Total Protein 6.3 g/dl (6.3-8.2) 08/06/23 03:27
Albumin 3.5 g/dl (3.5-5.0) 08/06/23 03:27
Physical Exam
-
Appears SOB
+DP/PT signals, minimal lower extremity swelling
prevenas in place in groin
CXR this morning with worsening bilateral infiltrates
--- NOTE | 2023-08-09 08:18 | W.PN.INTV ---
Today's Communication / Plan
Recommendations
Pain control
Keep NGT to suction as per colorectal surgery
Titrate cardizem gtt to keep HR<110
Maintain MAP 70-90
Goal SpO2 >88%
Trend Hb
Continue Duonebs given his moderate COPD and takes Spiriva at home
Continue phenobarbital low dose and precedex
Low threshold to intubated
Assessment
-
Assessment: 78-year-old male with a PMHx of PAD s/p kissing iliac stents bilaterally, AAA, COPD, tobacco use disorder, CAD s/p CABG x3 and A-fib s/p multiple failed cardioversions who presents with elective bilateral femoral endarterectomy and
vascular intervention for AAA. 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 He also has high-grade stenosis
involving the left external iliac artery extending into the common femoral artery. Open surgical repair was reviewed and that was considered too risky, hence best approach was a hybrid surgical approach - on 08/05/2023 the pt underwent bilateral
femoral cutdowns, femoral endarterectomies with patch angioplasty and then eventually retrograde balloon angioplasty with stenting of the left iliac artery and endovascular repair of his aortic aneurysm. Patient underwent that surgery with 500 cc
EBL and no immediate complications, and TRX to the ICU postoperatively and precinct police sergeant service is consulted for additional management/recommendations.
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
+ 1994), history of diverticulosis, history of NSTEMI
Impression:
#Bilateral femoral artery stenosis s/p cutdown with endarterectomy with bovine patch angioplasty & left iliac artery stenting (POD #4)
#AAA s/p EVAR using physician modified aortic endograft (POD #4)
#Rectal bleeding/BRBPR due to ischemic colitis s/p flexible sigmoidoscopy with open left colectomy with takedown of splenic flexure and end-distal sigmoid colostomy (POD#3)
#Lactic acidosis due to ischemic colitis (likely as an unfortunate complication from the EVAR) - lactate normalized
#Acute respiratory failure with hypoxemia on supplemental oxygen - likely combo of PNA and pulmonary edema, I suspect mainly the former though
#Leukocytosis
#Anemia - due to ischemic colitis as above
#A-fib with RVR on cardizem gtt
#Hx of COPD (moderate severity per spirometry from 2019)
#Alcohol use disorder c/b acute withdrawal
Plan:
Hemodynamically and neurovascularly intact
Wean supplemental oxygen with goal SpO2 >88%
Pain control but monitor for worsening sedation
Incentive spirometry encourage
Aspiration precautions
Uses spiriva at home --> I ordered DuoNebs q12hr for now
Continue Abx with Zosyn and complete 7 day course
Change NRB to high-flow nasal cannula
Diurese as tolerated
Maintain MAP>70-90mmHg
Titrate cardizem gtt to keep HR<110bpm
Continue IV lopressor 5mg q6hr prn
Once NGT is off suction and we can give PO meds, then will consider starting PO metoprolol or raise his home cardizem dose
I asked when we can clamp NGT and start PO meds, and we will need to wait for stoma to be functional, as per colorectal surgery
Monitor hemoglobin with serial CBC
Transfuse if needed to maintain Hb>7g/dL, plt>50k
Monitor blood sugars with goal BG 140-180mg/dL
Insulin supplementation if needed
Neuro and vascular checks per protocol also continue
Continue low dose phenobarbital & precedex; wean off precedex as tolerated
Post-operative management as per vascular surgery and colorectal surgery - operation notes reviewed and recs appreciated
DVT prophylaxis recommended: HSQ
Nutrition
Increase activity/physical therapy
Continue ICU level of care given he is maxed out on cardizem drip and has PVCs now, and is more SOB today. Low threshold to be intubated. He needs close monitoring to ensure pain is adequately controlled.
Critical care statement: A total of 40 minutes of critical care time was provided for this patient today. This includes management of unstable vital signs, evaluation of the patient at bedside, reviewing the patient's pertinent medical records
including radiographs, microbiology, laboratory evaluations, and discussion with primary team, consultants, pharmacy, nutrition, physical therapy, case management, charge nurse, critical care nursing, and respiratory therapy.
I personally reviewed the patient's pertinent medical records including radiographs, microbiology, laboratory evaluations, and discussion with primary team, consultants, pharmacy, nutrition, physical therapy, case management, charge nurse, critical
care nursing, and respiratory therapy.
Data:
CXR 08-09-2023:
Increased bilateral airspace and interstitial compared to the chest radiograph from 08/08/2023 suggestive of worsening pulmonary edema versus pneumonia.
CXR 08-08-2023:Interval development of ill-defined perihilar airspace opacities as well as ill-defined opacity within the right lung base. No significant effusions. Findings suspicious for pulmonary edema versus less likely multifocal pneumonia.
Abd XR 08-06-2023:
Feeding tube placement as described above.
Moderate fecal material in the colon. Stable
Postsurgical change of the abdomen.
Prior Spirometry: 12/2019
FEV1/FVC: 45
FEV1: 1.71L (58% predicted)
FVC: 3.76L (93% predicted)
WBW58-75%: 18%
Subjective Dataa
Subjective Data
Date of Service:
Date of Service: August 09, 2023
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
Subjective:
Patient seen this morning. No acute events reported overnight. Precedex started yesterday due to worsening confusion/agitation with concern for alcohol withdrawal. Oxygen requirements also worse -placed onto nonrebreather today and transition to
high flow nasal cannula. When patient is relaxing he is in no acute distress and has better O2 requirements, however during nursing interventions he desaturates.
Review of Systems
General: Other (Unable to obtain due to patient's acute clinical status)
Objective Data
Data Reviewed
Vital Signs / I&O / Oxygen:
Vital Signs
Temp Pulse Resp BP Pulse Ox
97.5 F 65 20 139/107 100
08/09/23 07:37 08/09/23 07:44 08/09/23 07:44 08/09/23 07:02 08/09/23 07:44
Intake and Output
08/08/23 08/09/23 08/10/23
06:59 06:59 06:59
Intake Total 4430 / 4570 2289.3 / 2289.3 128.1 / 128.1
Output Total 2120 / 2120 4005 / 4005 270 / 270
Balance 2310 / 2450 -1715.7 / -1715.7 -141.9 / -141.9
SaO2 100
Nasal Cannula flow liters per 15
minute
Physical Exam
General: Respiratory Distress (n) and Chills (negative)
HEENT: Normocephalic and Anicteric
Cardiovascular: Irregular Rhythm, Peripheral Edema (negative) and Other (Normal heart rate)
Respiratory: Wheeze (negative), Crackles (negative) and Rhonchi (Bilaterally (R >L))
GI: Soft, Non Distended, Tender (ashlyn-umbilical region without peritoneal signs), NG Tube and Other (Colostomy in place with small amount of blood seen in bag; no clots seen)
Neurology: Tremors (negative) and Other (sleepy but easily arousable; confused)
Skin: Warm, Dry and Other (toes are cool to touch bilaterally)
Labs/Micro/Reports
Lab Data
08/09/23 03:31
08/09/23 03:31
Microbiology
08/08/23 16:36 Nose Nasal Screen MRSA (PCR) - Final
MRSA not detected - performed by PCR methodology.
[2023-08-09] MEDS: PROTONIX IV 40 MG IV (08:19)
[2023-08-09] MEDS: NSS (PRESERVATIVE FREE) 10 ML IV (08:19)
[2023-08-09] MEDS: CYANOCOBALAMIN 100 MCG IM (08:22)
[2023-08-09] MEDS: PHENOBARBITAL 32.5 MG IV ×2 (08:22→20:51)
[2023-08-09] MEDS: ASPIRIN 300 MG RECTAL (08:22)
[2023-08-09] MEDS: CARDIZEM 125 IV (08:27)
--- NOTE | 2023-08-09 10:05 | W.PN.CD ---
Today's Communication / Plan
-
Continue dilt and amiodarone
When OK from surgical perspective should be on AC with Eliquis and antiplatelet agents
Impression / Plan
-
NSVT, 30 beats
-No CP or palps with arrhythmia
-Prior AVNRT ablation
-LVEF 50-55% in 05/2023
-continune amio gtt
Permanent atrial fibrillation HRs have been better controlled on amio and dilt gtt
-Rates elevated on diltiazem 15mg/hour
-Oral Anticoagulation: Eliquis 5mg BID pre op, currently none
-[id number]: score at least 6 (HTN, age 75 or more, prior Stroke/TIA, Vascular disease)
Abnormal troponin, likely nonischemic myocardial injury in the setting of acute illness
-Trend to peak
-No chest pain
AAA
B/L femoral artery stenosis
-Endovascular aneurysm repair using physician modified aortic endograph�
-Bilateral femoral artery cutdown, endarterectomy with bovine patch angioplasty, retrograde balloon angioplasty, lithotripsy and stenting of left iliac artery,
Ischemic colon S/P flexible sigmoidoscopy and colectomy with a colostomy on 08/06/[address] Padilla
PAD
-Severe bilateral ostial iliac artery stenoses successfully treated with kissing stents (Marecllus, 2014)
-Stenting of occluded left SFA and stenting of right external iliac artery (Marcellus, 2012)
CAD, PCI with stenting 1993 & 1994, CABG 2016, stable without CP
Prior CVAs
HLD, continue rosuvastatin 40mg when bowel function returns
Current smoker, cessation recommended
Physical Exam
Vital Signs/Labs
Vital Signs
Temp Pulse Resp BP Pulse Ox
97.5 F 65 20 139/107 100
08/09/23 07:37 08/09/23 07:44 08/09/23 07:44 08/09/23 07:02 08/09/23 07:44
08/08/23 08/09/23 08/10/23
06:59 06:59 06:59
Actual Weight 186 lb 8.177 oz 187 lb 2.759 oz
08/09/23 03:31
08/09/23 03:31
PT 15.4 Sec (11.4-14.6) H 08/06/23 03:27
INR 1.21 08/06/23 03:27
APTT 31.7 Sec (23.4-35.0) 08/06/23 03:27
Magnesium 2.4 mg/dl (1.6-2.3) H 08/09/23 03:31
LAB Results
08/08/23 08/08/23 08/09/23
13:21 20:53 03:31
Troponin I 0.040 H* 0.043 H* 0.030 D
Physical Exam
Constitutional: Other (Nonrebreather and mild respiratory distress )
Cardiovascular: Rhythm/rate is irregular
Respiratory: Labored respirations, Crackles Present (mild b/l ) and Rhonchi Present (diffuse expiratory rhonchi )
GI: Soft
Neuro/Psych: Alert and Oriented
Data Reviewed
-
Date of Service: August 09, 2023
EKG: Tracing Personally Visualized and interpreted
Labs: Labs Reviewed by me
--- NOTE | 2023-08-09 10:50 | PTCARENOTE ---
Pt placed in high flow 55L 70%. Pt tolerating well.
[2023-08-09] MEDS: PRECEDEX 100 IV ×4 (11:18→22:55)
--- NOTE | 2023-08-09 11:18 | W.PN.CRS1 ---
Today's Communication / Plan
-
Continue NPO
Assessment/Plan
-
78 yo male who underwent bilateral femoral artery cutdown, endarterectomy with bovine patch angioplasty, retrograde balloon angioplasty, IV lithotripsy, and stenting of left iliac artery, endovascular aneurysm repair using physician modified aortic
endograph�by Dr. Balbuena on 08/05/23.�Developed ischemic colitis of the sigmoid colon and now POD# 3 open left colectomy with takedown of splenic flexure and end distal sigmoid colostomy
Leukocytosis persists, afebrile
NGT out, awaiting bowel recovery
On cardizem/amio/precedex gtts.
Respiratory insufficiency with high O2 requirement. Tachycardia resolved. BP stable.
-- Strict NPO. No medications down tube until bowel function returns.
--Will consider TPN next week if bowel function does not return.
-- Wound RN for colostomy teaching
--Continue PRAKASH drain.
--Continue IV Zosyn antibiotics.
--OR pathology pending.
--Analgesics prn
-- VTE ppx with heparin SQ
Subjective Data
Procedure
08/06/2023- open left colectomy with takedown of splenic flexure and end distal sigmoid colostomy, ischemic colitis
Subjective Data
Date of Service: August 09, 2023
Patient seen and examined at bedside with Dr. Santana. Lethargic/sedated. Not answering questions at this time
Objective Data
-
Vital Signs
Temp Pulse Resp BP Pulse Ox
97.5 F 88 20 125/80 96
08/09/23 07:37 08/09/23 11:00 08/09/23 11:00 08/09/23 11:00 08/09/23 11:00
Intake & Output
08/08/23 08/09/23 08/10/23
06:59 06:59 06:59
Intake Total 4430 / 4570 2289.3 / 2289.3 170.8 / 170.8
Output Total 2120 / 2120 4005 / 4005 270 / 270
Balance 2310 / 2450 -1715.7 / -1715.7 -99.2 / -99.2
Intake:
IV fluids (Total) 3720 / 3860 1629.3 / 1629.3 170.8 / 170.8
Calcium gluconate 100 / 100
Cardizem 360 / 375 270 / 270 20 / 20
KCL rider 260 / 260
Lr 1,000 ml @ 75 mls/hr IV . 375 / 375
[id number] MARKO Rx#:[id number]
Nss 1,000 ml @ 125 mls/hr IV . 3000 / 3125 375 / 375
Q8H MARKO Rx#:[id number]
amiodarone 333.5 / 333.5 66.8 / 66.8
precedex 275.8 / 275.8 84 / 84
IV piggybacks 500 / 500 600 / 600
Amount instilled into GI Tube ( 210 / 210 60 / 60
Total)
[place] Sump 210 / 210 60 / 60
Output:
Drain Output (Total) 200 / 200 60 / 60
Right Lower Abdomen Damian- 200 / 200 60 / 60
Tello
Gastrointestinal tube output ( 460 / 460 50 / 50
Total)
[place] Sump 460 / 460 50 / 50
Urine, Balbuena 1460 / 1460 3895 / 3895 270 / 270
Lab Results
08/09/23 03:31
08/09/23 03:31
Physical Exam
-
General: No Acute Distress
Abdomen: Soft, Distended (mild), Tender (Throughout around incision site, mild) and No Bowel Movement (stoma pink, edema present. bowel sweat in appliance)
Skin: Warm, Dry and Other (PRAKASH with SSF)
Wound: Dressing in Place
[2023-08-09] MEDS: FOLVITE 50.2000000000000028 MG IV (11:56)
[2023-08-09 12:11] LABS: Glucose - Point of Care 161 mg/dl (70-99)
[2023-08-09] MEDS: POTASSIUM PHOSPHATE 259.090899999999976 MEQ IV (12:36)
--- NOTE | 2023-08-09 12:54 | PTCARENOTE ---
After patient care pt had increased work of breathing. O2 sat 78 slow to come up. High flow increased 65L 100% plus 100% NRB. Pt now appears comfortable. Sat 98%. Pt states he is at [facility].
[2023-08-09] MEDS: CORDARONE 518 MG IV (14:37)
[2023-08-09] MEDS: LASIX 40 MG IV (14:39)
[2023-08-09 15:44] LABS: B.E. 6.1 mmol/L; HCO3 29.5 mmol/L (21-28); PCO2 37 mmHg (35-48); PO2 117 mmHg (83-108); pH 7.51 (7.35-7.45)
[2023-08-09 17:42] LABS: Glucose - Point of Care 124 mg/dl (70-99)
--- NOTE | 2023-08-09 21:55 | W.PN.ANESINT ---
Anesthesia Intubation Note
- Intubation Note
Intubation Note:
Diagnosis: respiratory distress
Blade: Glidescope 4
Tube Size: 8
Depth: 23cm
Side Taped: right
Drugs Used: propofol 100mg then Rocuronium 50mg with additional Propofol 50mg
Grade View: I
EtCO2 Present: +
Atraumatic: yes
Attempts: 1
Insertion Start and Stop Time:
SaO2 Pre: 86
SaO2 Post: 86
Glidescope Used: yes
Other Airway Adjustments: no
Pre-Oxygenated: yes
Portable Chest X-Ray: to follow
RSI: no
Suctioned: no
Bilateral Breath Sounds Confirmed: yes
Vent Settings:
Settings per _X__Attending Physician
--- NOTE | 2023-08-09 22:25 | PTCARENOTE ---
Approx 21:00, pt increasingly agitated, yelling out, tachypneic, rapid afib, desatting to high 70s-mid 80s on max HFNC +NRB. PHP WORDPRESS DEVELOPER and pony ride attendant at bedside to assess, decision made to intubate pt. #8 ETT @ 23cm on the R, AC 20/500/100%/+5. pulse ox
now mid 90s. HR now 90s-110s, remains in afib.
[2023-08-09] MEDS: SUBLIMAZE 50 MCG IV (22:50)
[2023-08-09] MEDS: SUBLIMAZE 100 IV (22:51)
--- NOTE | 2023-08-09 22:54 | W.PN.UPDATE ---
Addendum entered and electronically signed by BEBA Pulliam 08/10/23 06:08:
updated.
Original Note:
Update Note
Progress Note Update
2122: Notified that patient is desating to 84 to 86% with RR in the 30s on non rebreather and high flow oxygen. Monitor patient for 30 minutes with no improvement in 02 sat decision made to intubated. Patient intubated without any issues.
[2023-08-10] VITALS (24 sets, daily range): BP systolic 102–142; BP diastolic 72–95; BMI 27.0
[2023-08-10 00:08] LABS: Glucose - Point of Care 154 mg/dl (70-99)
[2023-08-10] MEDS: HEPARIN 5000 UNITS SC ×4 (00:53→23:22)
[2023-08-10] MEDS: ZOSYN 50 IV ×5 (00:53→23:22)
[2023-08-10] MEDS: OFIRMEV 100 IV ×2 (02:23→16:16)
[2023-08-10] MEDS: PRECEDEX 100 IV ×7 (02:46→21:00)
[2023-08-10 03:14] LABS: Venous Blood Gas B.E. 7.6 mmol/L (-4 to +4); Venous Blood Gas O2 Sat % 99.2 %; Venous Blood Gas pCO2 38 mmHg (35-48); Venous Blood Gas pH 7.52 (7.32-7.43); Venous Blood Gas pO2 168 mmHg (30-50)
[2023-08-10 03:17] LABS: Venous Blood Gas O2 Therapy NRB 15L/min
[2023-08-10 03:19] LABS: Hematocrit 24.3 % (39.0-52.0); Hemoglobin 8.7 g/dL (13.0-18.0); Mean Corp Hgb Conc. 35.8 g/dL (33.0-37.0); Mean Corpuscular Hgb 32.6 pg (27.0-31.0); Mean Platelet Volume 11.1 fL (7.4-10.4); Platelet Count 155 10^3/uL (130-400); Red Blood Cell Count 2.67 10^6/uL (4.70-6.10); Red Cell Dist. Width 14.5 % (11.5-14.5); White Blood Cell Count 17.8 10^3/uL (4.8-10.8)
[2023-08-10 03:40] LABS: Blood Urea Nitrogen 18 mg/dl (9-20); Carbon Dioxide 31 mmol/L (22-30); Chloride 107 mmol/L (98-107); Estimated Creatinine Clearance 88 ml/min; Glucose 135 mg/dl (70-99); Magnesium 2.2 mg/dl (1.6-2.3); Phosphorus 2.4 mg/dl (2.5-4.5); Potassium 3.3 mmol/L (3.5-5.1); Sodium 139 mmol/L (135-145); eGFR > 60.00
--- NOTE | 2023-08-10 04:00 | PTCARENOTE ---
Pt tolerating vent-AC 20/500/80%/+5. Safe environment maintained, plan of care ongoing.
[2023-08-10] MEDS: KCL 270 MEQ IV (04:27)
[2023-08-10 06:02] LABS: Glucose - Point of Care 146 mg/dl (70-99)
[2023-08-10] MEDS: DUONEB 3 ML INH ×3 (07:33→19:47)
--- NOTE | 2023-08-10 07:55 | W.PN.VS ---
Today's Communication / Plan
-
as above
Assessment/Plan
-
Plan:
Continue gentle diuresis
Continue neurovascular checks
supportive care
Subjective Data
-
Date of Service: August 10, 2023
Patient reintubated overnight for hypoxia.
Objective Data
-
Vital Signs
Temp Pulse Resp BP Pulse Ox
101 F H 83 20 142/94 97
08/10/23 07:28 08/10/23 07:47 08/10/23 07:47 08/10/23 02:00 08/10/23 07:49
Intake and Output
08/09/23 08/10/23 08/11/23
06:59 06:59 06:59
Intake Total 2289.3 / 2289.3 1434.1 / 1434.1
Output Total 4005 / 4005 3350 / 3350
Balance -1715.7 / -1715.7 -1915.9 / -1915.9
Intake:
IV fluids (Total) 1629.3 / 1629.3 1054.1 / 1054.1
Cardizem 270 / 270 80 / 80
Lr 1,000 ml @ 75 mls/hr IV . 375 / 375
[id number] MARKO Rx#:[id number]
Nss 1,000 ml @ 125 mls/hr IV . 375 / 375
Q8H MARKO Rx#:[id number]
amiodarone 333.5 / 333.5 384.1 / 384.1
fent 20.0 / 20.0
precedex 275.8 / 275.8 570.0 / 570.0
IV piggybacks 600 / 600 380 / 380
Amount instilled into GI Tube ( 60 / 60
Total)
[place] Sump 60 / 60
Output:
Drain Output (Total) 60 / 60 40 / 40
Right Lower Abdomen Damian- 60 / 60 40 / 40
Tello
Gastrointestinal tube output ( 50
Total)
[place] Sump 50
Urine, Balbuena 3895 / 3895 3310 / 3310
Lab Results
08/10/23 03:07
08/10/23 03:07
Calcium 8.0 mg/dl (8.4-10.2) L 08/10/23 03:07
Phosphorus 2.4 mg/dl (2.5-4.5) L 08/10/23 03:07
Magnesium 2.2 mg/dl (1.6-2.3) 08/10/23 03:07
Total Bilirubin 0.6 mg/dl (0.2-1.3) 08/06/23 03:27
Direct Bilirubin 0.5 mg/dl (0.0-0.4) H 08/06/23 03:27
AST 111 U/L (17-59) H 08/06/23 03:27
ALT 46 U/L (0-50) 08/06/23 03:27
Alkaline Phosphatase 84 U/L (38-126) 08/06/23 03:27
Total Protein 6.3 g/dl (6.3-8.2) 08/06/23 03:27
Albumin 3.5 g/dl (3.5-5.0) 08/06/23 03:27
Physical Exam
-
Appears comfortable
Abdomen soft
Prevenas in place in groins
+dp/pt signals bilaterally
CXR with worsening bilateral infiltrates
[2023-08-10] MEDS: ASPIRIN 300 MG RECTAL (08:20)
[2023-08-10] MEDS: LASIX 40 MG IV (08:20)
[2023-08-10] MEDS: CYANOCOBALAMIN 100 MCG IM (08:20)
[2023-08-10] MEDS: NSS (PRESERVATIVE FREE) 10 ML IV (08:21)
[2023-08-10] MEDS: PROTONIX IV 40 MG IV (08:22)
[2023-08-10] MEDS: PHENOBARBITAL 32.5 MG IV ×2 (08:22→20:33)
--- NOTE | 2023-08-10 08:37 | W.PN.INTV ---
Addendum entered and electronically signed by Van Ray MD 08/11/23 09:45:
CDI Inquiry Responses:
- AMS likely due to alcohol withdrawal only.
- Acute pulmonary edema
Original Note:
Today's Communication / Plan
Recommendations
Continue mechanical ventilation with daily SAT/SBT
Lightly sedate
Pain control
Keep NGT to suction as per colorectal surgery
Keep HR<110
Maintain MAP >65
Goal SpO2 >88%
Trend Hb
Continue Duonebs given his moderate COPD and takes Spiriva at home --> raise to QID now that he is intubated
Continue phenobarbital low dose and precedex
Assessment
-
Assessment: 78-year-old male with a PMHx of PAD s/p kissing iliac stents bilaterally, AAA, COPD, tobacco use disorder, CAD s/p CABG x3 and A-fib s/p multiple failed cardioversions who presents with elective bilateral femoral endarterectomy and
vascular intervention for AAA. 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 He also has high-grade stenosis
involving the left external iliac artery extending into the common femoral artery. Open surgical repair was reviewed and that was considered too risky, hence best approach was a hybrid surgical approach - on 08/05/2023 the pt underwent bilateral
femoral cutdowns, femoral endarterectomies with patch angioplasty and then eventually retrograde balloon angioplasty with stenting of the left iliac artery and endovascular repair of his aortic aneurysm. Patient underwent that surgery with 500 cc
EBL and no immediate complications, and TRX to the ICU postoperatively and master cook service is consulted for additional management/recommendations.
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
+ 1994), history of diverticulosis, history of NSTEMI
Impression:
#Acute respiratory failure with hypoxemia on mechanical ventilation - likely combo of PNA and pulmonary edema, I suspect mainly the former though
#Bilateral femoral artery stenosis s/p cutdown with endarterectomy with bovine patch angioplasty & left iliac artery stenting (POD #5)
#AAA s/p EVAR using physician modified aortic endograft (POD #5)
#Rectal bleeding/BRBPR due to ischemic colitis s/p flexible sigmoidoscopy with open left colectomy with takedown of splenic flexure and end-distal sigmoid colostomy (POD#4)
#Lactic acidosis due to ischemic colitis (likely as an unfortunate complication from the EVAR) - lactate normalized
#Leukocytosis
#Anemia - due to ischemic colitis as above
#A-fib with RVR s/p cardizem gtt and now amiodarone gtt
#Hx of COPD (moderate severity per spirometry from 2019)
#Alcohol use disorder c/b acute withdrawal
Plan:
Continue mechanical ventilation with daily SAT/SBT if clinically appropriate
Titrate FiO2 and PEEP to maintain SpO2 >88%
Maintain plateau pressure <30
Lightly sedate with goal RASS -1 through -2
Pain control
VAP precautions
Uses spiriva at home --> I ordered DuoNebs q12hr --> I will change to QID now that he is intubated
Continue Abx with Zosyn and complete 7 day course
Check blood Cx, sputum Cx and legionella/Strep pneumonia urine antigens
Diurese as tolerated
Maintain MAP>70-90mmHg
Pt now off cardizem gtt and started on amiodarone; goal HR<110bpm
Continue IV lopressor 5mg q6hr prn
Once NGT is off suction and we can give PO meds, then will consider starting PO metoprolol or raise his home cardizem dose
I asked when we can clamp NGT and start PO meds, and we will need to wait for stoma to be functional, as per colorectal surgery
Monitor hemoglobin with serial CBC
Transfuse if needed to maintain Hb>7g/dL, plt>50k
Monitor blood sugars with goal BG 140-180mg/dL
Insulin supplementation if needed
Neuro and vascular checks per protocol also continue
Continue low dose phenobarbital & precedex; wean off precedex as tolerated
Post-operative management as per vascular surgery and colorectal surgery - operation notes reviewed and recs appreciated
DVT prophylaxis recommended: HSQ
Stress ulcer ppx
May need TPN if not able to start tube feeds soon
Critical care statement: A total of 44 minutes of critical care time was provided for this patient today. This includes management of unstable vital signs, evaluation of the patient at bedside, reviewing the patient's pertinent medical records
including radiographs, microbiology, laboratory evaluations, and discussion with primary team, consultants, pharmacy, nutrition, physical therapy, case management, charge nurse, critical care nursing, and respiratory therapy.
I personally reviewed the patient's pertinent medical records including radiographs, microbiology, laboratory evaluations, and discussion with primary team, consultants, pharmacy, nutrition, physical therapy, case management, charge nurse, critical
care nursing, and respiratory therapy.
Data:
CXR 08-10-2023:Bilateral pulmonary opacities are not significantly changed compared to the previous chest radiograph from 08/09/2023.
CXR 08-09-2023:
Increased bilateral airspace and interstitial compared to the chest radiograph from 08/08/2023 suggestive of worsening pulmonary edema versus pneumonia.
CXR 08-08-2023:Interval development of ill-defined perihilar airspace opacities as well as ill-defined opacity within the right lung base. No significant effusions. Findings suspicious for pulmonary edema versus less likely multifocal pneumonia.
Abd XR 08-06-2023:
Feeding tube placement as described above.
Moderate fecal material in the colon. Stable
Postsurgical change of the abdomen.
Prior Spirometry: 12/2019
FEV1/FVC: 45
FEV1: 1.71L (58% predicted)
FVC: 3.76L (93% predicted)
WPL68-41%: 18%
Subjective Dataa
Subjective Data
Date of Service:
Date of Service: August 10, 2023
Chief Complaint: Assembler Corncob Pipes Follow Up
Subjective:
Patient was intubated last night due to worsening hypoxia and tachycardia. This morning he appears comfortable on AC 20/500/50%/5. VTe is 490cc, f: 20b/min and PIP 22 cmH2O. He is sedated on fentanyl at 25mcg/hr, Precedex 1.5mcg/kg/hr. he is on
amiodarone at 0.5 mg/min. BP 123/88, heart rate 91.
Review of Systems
General: Other (Unable to obtain due to patient's acute clinical status (intubated/sedated))
Objective Data
Data Reviewed
Vital Signs / I&O / Oxygen:
Vital Signs
Temp Pulse Resp BP Pulse Ox
100.8 F H 91 20 124/83 99
08/10/23 15:12 08/10/23 12:00 08/10/23 12:00 08/10/23 12:00 08/10/23 13:46
Intake and Output
08/09/23 08/10/23 08/11/23
06:59 06:59 06:59
Intake Total 2289.3 / 2289.3 1434.1 / 1484.8 604.2 / 604.2
Output Total 4005 / 4005 3350 / 3550 1550 / 1550
Balance -1715.7 / -1715.7 -1915.9 / -2065.2 -945.8 / -945.8
SaO2 [A/C] 96
SaO2 99
Nasal Cannula flow liters per 60
minute
Physical Exam
General: Comfortable and Chills (negative)
HEENT: Normocephalic and Anicteric
Cardiovascular: Irregular Rhythm, Peripheral Edema (negative) and Other (Normal heart rate)
Respiratory: Wheeze (negative), Crackles (negative), Rhonchi (Bilaterally (R >L)), ET Tube and Other (Mechanical breath sounds heard bilaterally)
GI: Soft, Non Distended, Tender (ashlyn-umbilical region without peritoneal signs), NG Tube and Other (Colostomy in place with small amount of blood seen in bag; no clots seen)
Neurology: Tremors (negative) and Other (sleepy but easily arousable; confused)
Skin: Warm, Dry and Other (toes are cool to touch bilaterally)
Labs/Micro/Reports
Lab Data
08/10/23 03:07
08/10/23 03:07
Laboratory Results
08/09/23
15:37
pH 7.51 H
pCO2 37
pO2 117 H
HCO3 29.5 H
O2 Delivery Level
Microbiology
08/08/23 16:36 Nose Nasal Screen MRSA (PCR) - Final
MRSA not detected - performed by PCR methodology.
--- NOTE | 2023-08-10 09:30 | W.PN.CRS1 ---
Today's Communication / Plan
-
Place NGT to LIWS keep strict NPO
Assessment/Plan
-
78 yo male who underwent bilateral femoral artery cutdown, endarterectomy with bovine patch angioplasty, retrograde balloon angioplasty, IV lithotripsy, and stenting of left iliac artery, endovascular aneurysm repair using physician modified aortic
endograph�by Dr. Balbuena on 08/05/23.�Developed ischemic colitis of the sigmoid colon and now POD# 4 open left colectomy with takedown of splenic flexure and end distal sigmoid colostomy
Leukocytosis persists but trending down, now with fevers
Reintubated earlier this morning
On cardizem/amio gtts but not requiring pressors.
VSS, Afib on telemetry
Good UO
-- Strict NPO. Place NGT to LIWS
-- Will consider TPN if bowel function does not return, consult nutrition and check nutritional labs
--Wound RN for colostomy care/teaching
--Continue PRAKASH drain.
--Continue antibiotics. Infectious work up as per primary team
--OR pathology pending.
--Analgesics prn
--VTE ppx with heparin SQ. Ok from surgical standpoint for full strength AC if needed.
Subjective Data
Procedure
08/06/2023- open left colectomy with takedown of splenic flexure and end distal sigmoid colostomy, ischemic colitis
Subjective Data
Date of Service: August 10, 2023
Patient seen and examined at bedside with Dr. Santana and primary nurse at bedside. Reintubated/sedated. Comfortable appearing.
Objective Data
-
Vital Signs
Temp Pulse Resp BP Pulse Ox
101 F H 83 20 142/94 97
08/10/23 07:28 08/10/23 07:47 08/10/23 07:47 08/10/23 02:00 08/10/23 07:49
Intake & Output
0308/10/23 08/11/23
06:59 06:59 06:59
Intake Total 2289.3 / 2289.3 1434.1 / 1434.1
Output Total 4005 / 4005 3350 / 3350
Balance -1715.7 / -1715.7 -1915.9 / -1915.9
Intake:
IV fluids (Total) 1629.3 / 1629.3 1054.1 / 1054.1
Cardizem 270 / 270 80 / 80
Lr 1,000 ml @ 75 mls/hr IV . 375 / 375
[id number] MARKO Rx#:[id number]
Nss 1,000 ml @ 125 mls/hr IV . 375 / 375
Q8H MARKO Rx#:[id number]
amiodarone 333.5 / 333.5 384.1 / 384.1
fent 20.0 / 20.0
precedex 275.8 / 275.8 570.0 / 570.0
IV piggybacks 600 / 600 380 / 380
Amount instilled into GI Tube ( 60 / 60
Total)
[place] Sump 60 / 60
Output:
Drain Output (Total) 60 / 60 40 / 40
Right Lower Abdomen Damian- 60 / 60 40 / 40
Tello
Gastrointestinal tube output ( 50 / 50
Total)
[place] Sump 50 / 50
Urine, Balbuena 3895 / 3895 3310 / 3310
Lab Results
08/10/23 03:07
08/10/23 03:07
Physical Exam
-
General: No Acute Distress
Abdomen: Soft, Distended (mild), Non Tender and No Bowel Movement (stoma pale but viable, crusting noted. bowel sweat in appliance and a small amount of flatus)
Neurological: Other (sedated)
Skin: Warm, Dry and Other (PRAKASH with SSF)
Wound: Dressing in Place
--- NOTE | 2023-08-10 10:13 | W.PN.CD ---
Today's Communication / Plan
-
Amio gtt
K> 4 Mag > 2
Impression / Plan
-
NSVT, 30 beats
-No CP or palps with arrhythmia
-Prior AVNRT ablation
-LVEF 50-55% in 05/2023
-continue amio gtt
Permanent atrial fibrillation HRs have been better controlled on amio dilt is now off
-continue amio gtt
-Oral Anticoagulation: Eliquis 5mg BID pre op, currently none
-[id number]: score at least 6 (HTN, age 75 or more, prior Stroke/TIA, Vascular disease)
Abnormal troponin, likely nonischemic myocardial injury in the setting of acute illness
-Trend to peak
-No chest pain
AAA
B/L femoral artery stenosis
-Endovascular aneurysm repair using physician modified aortic endograph�
-Bilateral femoral artery cutdown, endarterectomy with bovine patch angioplasty, retrograde balloon angioplasty, lithotripsy and stenting of left iliac artery,
Ischemic colon S/P flexible sigmoidoscopy and colectomy with a colostomy on 08/06/[address] Padilla
PAD
-Severe bilateral ostial iliac artery stenoses successfully treated with kissing stents (Marcellus, 2014)
-Stenting of occluded left SFA and stenting of right external iliac artery (Marcellus, 2012)
CAD, PCI with stenting 1993 & 1994, CABG 2016, stable without CP
Prior CVAs
HLD, continue rosuvastatin 40mg when bowel function returns
Current smoker, cessation recommended
Subjective: Re-intubated, remains NPO per CRS, HRs better controlled cont amio gtt
Physical Exam
Vital Signs/Labs
Vital Signs
Temp Pulse Resp BP Pulse Ox
101 F H 95 20 127/88 100
08/10/23 07:28 08/10/23 09:00 08/10/23 09:00 08/10/23 09:00 03/03/24 08:00
08/09/23 08/10/23 08/11/23
06:59 06:59 06:59
Actual Weight 187 lb 2.759 oz 187 lb 13.341 oz
08/10/23 03:07
08/10/23 03:07
PT 15.4 Sec (11.4-14.6) H 08/06/23 03:27
INR 1.21 08/06/23 03:27
APTT 31.7 Sec (23.4-35.0) 08/06/23 03:27
Magnesium 2.2 mg/dl (1.6-2.3) 08/10/23 03:07
LAB Results
08/08/23 08/08/23 08/09/23
13:21 20:53 03:31
Troponin I 0.040 H* 0.043 H* 0.030 D
Physical Exam
Constitutional: Other (intubated sedated )
EENT: Anicteric
Cardiovascular: Rhythm/rate is irregular and Pedal edema present
Respiratory: Respiratory effort normal (intubated ) and Lungs clear to auscul.
GI: Soft
Neuro/Psych: Other (intubated sedated )
Data Reviewed
-
Date of Service: August 10, 2023
EKG: Tracing Personally Visualized and interpreted
Labs: Labs Reviewed by me
--- NOTE | 2023-08-10 10:13 | PTCARENOTE ---
Pt received this am. Assessment as documented. Pt intubated. Tolerating ETT. [place] NGT inserted. + placement via air bolus. To low sx. Small amount parks drainage from NGT. Bilat groin dressings intact with STEPHEN dressings. + pulses by doppler.
[2023-08-10] MEDS: FOLVITE 50.2000000000000028 MG IV (16:10)
[2023-08-10 18:00] LABS: Glucose - Point of Care 136 mg/dl (70-99)
--- NOTE | 2023-08-10 18:16 | VATNOTE ---
Rt. Picc tip read as Rt. atrium by Radiology, call to Radiologist by this creative services writer, he recommended retracting 2cm's for SVC tip placement. Picc retracted per protocol without difficulty, staff anesthesiologist aware.
[2023-08-10] MEDS: SUBLIMAZE 50 MCG IV (20:09)
[2023-08-10] MEDS: CORDARONE 518 MG IV (20:35)
[2023-08-10] MEDS: NSS 1000 IV (22:22)
[2023-08-10] MEDS: TYLENOL/FEVERALL 650 MG RECTAL (23:17)
--- NOTE | 2023-08-10 23:31 | PTCARENOTE ---
Pt received at 19:00. Intubated and sedated. Initial assessment as documented. Pt became agitated and restless approx 20:00, CPOT = 7. PRN fentanyl bolus given and gtt titrated as ordered. #8 ETT, @ 23cm--received on R side, repositioned to the
center. AC 18/450/40%/+5, tolerating settings. Hypoactive bowel sounds. Colostomy present, stoma moist/pink dusky areas noted--unchanged, scant serosanguineous output in ostomy bag. B/L groin STEPHEN dressings remain intact. R PRAKASH drain
present--serosanguineous drainage.
[2023-08-11] VITALS (30 sets, daily range): BP systolic 85–152; BP diastolic 63–88; BMI 26.7
[2023-08-11] MEDS: SUBLIMAZE 100 IV (02:46)
[2023-08-11 04:23] LABS: B.E. 9.4 mmol/L; HCO3 32.2 mmol/L (21-28); O2 Saturation % 98.6 % (94-98); O2 Therapy VENT; PCO2 36 mmHg (35-48); PO2 114 mmHg (83-108); pH 7.56 (7.35-7.45)
[2023-08-11 04:28] LABS: Hemoglobin 8.7 g/dL (13.0-18.0); Mean Corp Hgb Conc. 34.8 g/dL (33.0-37.0); Mean Corpuscular Hgb 32.5 pg (27.0-31.0); Mean Corpuscular Volume 93.3 fL (80.0-94.0); Mean Platelet Volume 11.2 fL (7.4-10.4); Platelet Count 172 10^3/uL (130-400); Red Blood Cell Count 2.68 10^6/uL (4.70-6.10); Red Cell Dist. Width 14.3 % (11.5-14.5); White Blood Cell Count 11.9 10^3/uL (4.8-10.8)
[2023-08-11] MEDS: TYLENOL/FEVERALL 650 MG RECTAL (04:35)
--- NOTE | 2023-08-11 04:39 | PTCARENOTE ---
Pt assessment unchanged. Tolerating vent. ETT repositioned to L. Tylenol given VT due to persistent temp between 100.4-101.
[2023-08-11 05:10] LABS: Albumin 2.4 g/dl (3.5-5.0); Blood Urea Nitrogen 19 mg/dl (9-20); Carbon Dioxide 32 mmol/L (22-30); Chloride 104 mmol/L (98-107); Estimated Creatinine Clearance 88 ml/min; Glucose 128 mg/dl (70-99); Magnesium 2.3 mg/dl (1.6-2.3); Phosphorus 2.7 mg/dl (2.5-4.5); Potassium 2.9 mmol/L (3.5-5.1); Sodium 140 mmol/L (135-145); eGFR > 60.00
[2023-08-11 05:20] LABS: Prealbumin (Transthyretin) 8.4 mg/dl (17.6-36.0)
[2023-08-11 05:49] LABS: Procalcitonin 0.55 ng/ml (0.0-0.25)
[2023-08-11] MEDS: PRECEDEX 100 IV ×5 (05:59→20:18)
[2023-08-11] MEDS: ZOSYN 50 IV ×4 (06:00→23:51)
[2023-08-11] MEDS: KCL 270 MEQ IV ×2 (06:50→12:18)
--- NOTE | 2023-08-11 07:05 | W.PN.INTV ---
Today's Communication / Plan
Recommendations
Wean sedation
SBT trials today
Likely to start TPN per team
Abx continued, can stop if all formal cultures negative
Pain control postop
Assessment
-
78-year-old male with a PMHx of PAD s/p kissing iliac stents bilaterally, AAA, COPD, tobacco use disorder, CAD s/p CABG x3 and A-fib s/p multiple failed cardioversions who presents with elective bilateral femoral endarterectomy and vascular
intervention for AAA. 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 He also has high-grade stenosis involving the
left external iliac artery extending into the common femoral artery. Open surgical repair was reviewed and that was considered too risky, hence best approach was a hybrid surgical approach. On 08/05/2023 the pt underwent bilateral femoral cutdowns,
femoral endarterectomies with patch angioplasty and then eventually retrograde balloon angioplasty with stenting of the left iliac artery and endovascular repair of his aortic aneurysm. Patient is transferred postoperatively to the ICU and
riffler tender service is consulted for additional management/recommendations.
Impression:
#Acute hypoxic respiratory failure s/p intubation on mechanical ventilation - likely combo of PNA and pulmonary edema, I suspect mainly the former though
s/p intubation 08/09/23
#Bilateral femoral artery stenosis s/p cutdown with endarterectomy with bovine patch angioplasty & left iliac artery stenting 08/05/23
#AAA s/p EVAR using physician modified aortic endograft 08/05/23
#Rectal bleeding/BRBPR due to ischemic colitis s/p flexible sigmoidoscopy with open left colectomy with takedown of splenic flexure and end-distal sigmoid colostomy 08/06/23
#Lactic acidosis due to ischemic colitis (likely as an unfortunate complication from the EVAR) - lactate normalized
#Leukocytosis
#Anemia - due to ischemic colitis as above
#A-fib with RVR s/p cardizem gtt and now amiodarone gtt
#Hx of COPD (moderate severity per spirometry from 2019)
#Alcohol use disorder c/b acute withdrawal
Chronic medical conditions JEWEL DIAMETER GAUGER:
Hyperlipidemia
ED
PMR
hypertension
CAD s/p s/p stents (1993 + 1994), CABG x3
history of skin cancer
tobacco use disorder, PAD
NSVT s/p ablation
history of alcohol abuse
history of COPD
A-fib (diagnosed in 2016)
history of diverticulosis
history of NSTEMI
Plan:
Currently sedated, currently on phenobarbital & precedex; wean off precedex as tolerated
Wean as tolerated, evaluate for sedation holiday
Neuro and vascular checks per protocol also continue
RASS goal 0
Can likely stop phenobarb as his ETOH w/d window is >7 days
Change to dilaudid PRN for pain when off drips
Acute hypoxic RF s/p intubation, had been on NRB
Continue mechanical ventilation with daily SAT/SBT if clinically appropriate
Titrate FiO2 and PEEP to maintain SpO2 >88%
Maintain plateau pressure <30
COPD history: Uses spiriva at home --> I ordered DuoNebs q12hr --> I will change to QID now that he is intubated
SBT trials today
Suspect acute HFpEF, proBNP check
CXR showing enlarged cardiac silhouette, last ECHO preserved function
Diurese as tolerated
Maintain MAP>70-90mmHg
Pt now off cardizem gtt and started on amiodarone; goal HR<110bpm
Continue IV lopressor 5mg q6hr prn
Advance diet as tolerated post surgery/NPO
Likely to start TPN
Maintain NGT
CRC following
Continue Abx with Zosyn and complete 7 day course
Check blood Cx, sputum Cx and legionella/Strep pneumonia urine antigens
Send sputum/reviewed with RT
If negative, may consider stopping abx
Monitor hemoglobin with serial CBC
Transfuse if needed to maintain Hb>7g/dL, plt>50k
Monitor blood sugars with goal BG 140-180mg/dL
Insulin supplementation if needed
Post-operative management as per vascular surgery and colorectal surgery - operation notes reviewed and recs appreciated
DVT prophylaxis recommended: HSQ
Stress ulcer ppx
Diagnostic Data
CXR 08-10-2023: Bilateral pulmonary opacities are not significantly changed compared to the previous chest radiograph from 08/09/2023.
CXR 08-09-2023: Increased bilateral airspace and interstitial compared to the chest radiograph from 08/08/2023 suggestive of worsening pulmonary edema versus pneumonia.
CXR 08-08-2023:Interval development of ill-defined perihilar airspace opacities as well as ill-defined opacity within the right lung base. No significant effusions. Findings suspicious for pulmonary edema versus less likely multifocal pneumonia.
Abd XR 08-06-2023: Feeding tube placement as described above. Moderate fecal material in the colon. Stable postsurgical change of the abdomen.
ECHO 05/09/23: Normal biventricular size and systolic function without regional wall motion abnormality. Estimated LVEF 50-55%. Mild concentric left ventricular hypertrophy. No significant valve disease.
Compared to 01/15/23: no significant change.
Prior Spirometry: 12/2019: FEV1/FVC: 45, FEV1: 1.71L (58% predicted), FVC: 3.76L (93% predicted), GRL59-27%: 18%
-----
Critical Care time 45 mins -- The patient is admitted for acute critical illness for the treatment of vital organ failure and/or prevention of further life-threatening conditions. Total care includes time spent in review of history, physical exam,
medications, hemodynamic/ventilator parameters, laboratory data, imaging and discussion with house staff, pharmacy, respiratory therapy, semiconductor processing technician, and nursing.
Subjective Dataa
Subjective Data
Date of Service:
Date of Service: August 11, 2023
Chief Complaint: Corporate Quality Manager Follow Up
Subjective:
remains intubated, sedated
no new events ON
Objective Data
Data Reviewed
Vital Signs / I&O / Oxygen:
Vital Signs
Temp Pulse Resp BP Pulse Ox
100.8 F H 89 18 152/88 99
08/11/23 03:35 08/11/23 05:00 08/11/23 05:00 08/11/23 05:00 08/11/23 05:35
Intake and Output
08/10/23 08/11/23 08/12/23
06:59 06:59 06:59
Intake Total 1434.1 / 1484.8 1881.8 / 1881.8
Output Total 3350 / 3550 3495 / 3495
Balance -1915.9 / -2065.2 -1613.2 / -1613.2
SaO2 [A/C] 98
SaO2 99
Nasal Cannula flow liters per 60
minute
Physical Exam
General: Comfortable and Chills (negative)
HEENT: Normocephalic and Anicteric
Cardiovascular: Irregular Rhythm, Peripheral Edema (negative) and Other (Normal heart rate)
Respiratory: Wheeze (negative), Crackles (negative), Rhonchi (Bilaterally (R >L)), ET Tube and Other (Mechanical breath sounds heard bilaterally)
GI: Soft, Non Distended, Tender (ashlyn-umbilical region without peritoneal signs), NG Tube and Other (Colostomy in place with small amount of blood seen in bag; no clots seen)
Neurology: Tremors (negative) and Other (sleepy but easily arousable; confused)
Skin: Warm, Dry and Other (toes are cool to touch bilaterally)
Labs/Micro/Reports
Lab Data
08/11/23 04:15
Laboratory Results
08/11/23
04:15
pH 7.56 H
pCO2 36
pO2 114 H
HCO3 32.2 H
O2 Delivery Level Vent
Microbiology
08/08/23 16:36 Nose Nasal Screen MRSA (PCR) - Final
MRSA not detected - performed by PCR methodology.
[2023-08-11] MEDS: DUONEB 3 ML INH ×3 (07:28→15:54)
--- NOTE | 2023-08-11 07:42 | W.PN.CD ---
Today's Communication / Plan
-
Check lactate
continue amiodarone
Impression / Plan
-
VDRF:
- reintubated
- CXR shows improving CHF
-Has lasix 40mg IV ordered qAM through tomorrow
- On Zosyn . He is persistently febrile for past 2 days- concerning for infection (?aspiration vs wound infection from colectomy vs residual ischemic bowel). Lactate being checked
Hypokalemia
-K 2.9
- Continue to replete
NSVT, 30 beats
-Now only PVCs - no VT
-Prior AVNRT ablation
-LVEF 50-55% in 05/2023
-continue amio gtt
Permanent atrial fibrillation HRs have been better controlled on amio dilt is now off
-continue amio gtt
-Oral Anticoagulation: Eliquis 5mg BID pre op, currently none
-[id number]: score at least 6 (HTN, age 75 or more, prior Stroke/TIA, Vascular disease)
-OAT to resume when surgical bleeding risk allows
Abnormal troponin, likely nonischemic myocardial injury in the setting of acute illness
- trop peak in setting of critical illness 0.043
AAA
B/L femoral artery stenosis
-Endovascular aneurysm repair using physician modified aortic endograph�
-Bilateral femoral artery cutdown, endarterectomy with bovine patch angioplasty, retrograde balloon angioplasty, lithotripsy and stenting of left iliac artery,
Ischemic colitis postop AAA repair : S/P flexible sigmoidoscopy and colectomy with a colostomy on 08/06/[address] Padilla
PAD
-Severe bilateral ostial iliac artery stenoses successfully treated with kissing stents (Marcellus, 2014)
-Stenting of occluded left SFA and stenting of right external iliac artery (Marcellus, 2012)
CAD, PCI with stenting 1993 & 1994, CABG 2016, stable without CP
Prior CVAs
HLD, continue rosuvastatin 40mg when bowel function returns
Current smoker, cessation recommended
Remains critically ill- prognosis is uncertain
Subjective: Re-intubated, HRs better controlled cont amio gtt
Physical Exam
Vital Signs/Labs
Vital Signs
Temp Pulse Resp BP Pulse Ox
100.8 F H 89 18 152/88 99
08/11/23 03:35 08/11/23 05:00 08/11/23 05:00 08/11/23 05:00 08/11/23 05:35
08/10/23 08/11/23 08/12/23
06:59 06:59 06:59
Actual Weight 187 lb 13.341 oz 185 lb 13.595 oz
08/11/23 04:15
PT 15.4 Sec (11.4-14.6) H 08/06/23 03:27
INR 1.21 08/06/23 03:27
APTT 31.7 Sec (23.4-35.0) 08/06/23 03:27
Magnesium 2.3 mg/dl (1.6-2.3) 08/11/23 04:15
LAB Results
08/08/23 08/08/23 08/09/23
13:21 20:53 03:31
Troponin I 0.040 H* 0.043 H* 0.030 D
Physical Exam
Constitutional: Comfortable (intubated/sedated)
EENT: Anicteric
Cardiovascular: Rhythm & rate is regular
Respiratory: Respiratory effort normal, Wheeze Absent and Rhonchi Present
GI: Distention absent
Neuro/Psych: Other (Intubated and sedated)
Data Reviewed
-
Date of Service: August 11, 2023
--- NOTE | 2023-08-11 07:55 | W.PN.VS ---
Today's Communication / Plan
-
See plan below for today 08/11/2023.
Assessment/Plan
-
Plan/ POD# 6
�Continue diuresis as tolerated.
� Wean vent as tolerated.
� Follow fever curve. Check lactate. White blood cell count improving, abdomen is soft. Argues against any intra-abdominal source of fever. Continue Zosyn antibiotics for now.
� Continue lower extremity neurovascular checks.
� Continue n.p.o./NG tube per colorectal surgery.
� PRAKASH per colorectal surgery.
-
Total Time Spent with Patient (in minutes): 15
Subjective Data
-
Date of Service: August 11, 2023
No further events noted overnight. Continues to remain intubated, sedated.
Objective Data
-
Vital Signs
Temp Pulse Resp BP Pulse Ox
100.8 F H 89 18 152/88 99
08/11/23 03:35 08/11/23 05:00 08/11/23 05:00 08/11/23 05:00 08/11/23 05:35
Intake and Output
08/10/23 08/11/23 08/12/23
06:59 06:59 06:59
Intake Total 1434.1 / 1484.8 1881.8 / 1881.8
Output Total 3350 / 3550 3560 / 3560
Balance -1915.9 / -2065.2 -1678.2 / -1678.2
Intake:
IV fluids (Total) 1054.1 / 1104.8 1441.8 / 1441.8
Cardizem 80 / 80
Nss 1,000 ml @ 20 mls/hr IV . 200 / 200
Q24H [facility] Rx#:[id number]
amiodarone 384.1 / 400.8 400.8 / 400.8
fent 20.0 / 22.5 85.0 / 85.0
precedex 570.0 / 601.5 756.0 / 756.0
IV piggybacks 380 / 380 400 / 400
Amount instilled into GI Tube (
Total)
[place] Sump
Output:
Drain Output (Total) 110 / 110
Right Lower Abdomen Damian- 110 / 110
Tello
Gastrointestinal tube output ( 150 / 150
Total)
[place] Sump 150 / 150
Urine, Balbuena 3310 / 3510 3300 / 3300
Lab Results
08/11/23 04:15
Calcium 8.0 mg/dl (8.4-10.2) L 08/11/23 04:15
Phosphorus 2.7 mg/dl (2.5-4.5) 08/11/23 04:15
Magnesium 2.3 mg/dl (1.6-2.3) 08/11/23 04:15
Total Bilirubin 0.6 mg/dl (0.2-1.3) 08/06/23 03:27
Direct Bilirubin 0.5 mg/dl (0.0-0.4) H 08/06/23 03:27
AST 111 U/L (17-59) H 08/06/23 03:27
ALT 46 U/L (0-50) 08/06/23 03:27
Alkaline Phosphatase 84 U/L (38-126) 08/06/23 03:27
Total Protein 6.3 g/dl (6.3-8.2) 08/06/23 03:27
Albumin 2.4 g/dl (3.5-5.0) L 08/11/23 04:15
Physical Exam
-
Tmax 101.3, T-current 100.8. Systolic blood pressures 120s to 150s. Heart rate 80s. O2 sat 99% on 40% FiO2. Fluid balance -1.9 L for 24 hours yesterday. Urine output 75 to 125 cc/h overnight.
He is intubated, sedated.
Abdomen is soft, nondistended, no obvious tenderness. No peritoneal signs. No rigidity. Stoma is slightly pale, but not necrotic appearing. Stoma sweat noted but no air or stool.
Groins are flat bilaterally. Dressings clean dry and intact bilaterally.
Balbuena catheter with clear yellow urine.
Feet warm with dopplerable DP signals bilaterally.
White blood cell count trending down to 11.9 today (17.8 yesterday). Hemoglobin 8.7 (stable).
Chest x-ray reviewed this a.m. appears to have improved aeration. Decreased pulmonary edema type findings. But still present to some degree.
--- NOTE | 2023-08-11 08:20 | PTCARENOTE ---
Pt received at 0700. Intubated and sedated. Initial assessment as documented. Fentanyl and precedex gtt infusing. #8 ETT, @ 23cm--received on L. AC 18/450/40%/+5, tolerating settings. Hypoactive bowel sounds. Colostomy present, stoma moist/pink
dusky areas noted--unchanged, scant serosanguineous output in ostomy bag. B/L groin STEPHEN dressings remain intact. R PRAKASH drain present--serosanguineous drainage.
[2023-08-11] MEDS: PROTONIX IV 40 MG IV (08:30)
[2023-08-11] MEDS: HEPARIN 5000 UNITS SC ×3 (08:30→23:50)
[2023-08-11] MEDS: NSS (PRESERVATIVE FREE) 10 ML IV (08:30)
[2023-08-11] MEDS: LASIX 40 MG IV (08:31)
[2023-08-11] MEDS: PHENOBARBITAL 32.5 MG IV ×2 (08:31→20:03)
[2023-08-11] MEDS: CYANOCOBALAMIN 100 MCG IM (08:31)
[2023-08-11] MEDS: ASPIRIN 300 MG RECTAL (08:32)
[2023-08-11 08:51] LABS: Lactic Acid 0.9 mmol/L (0.7-2.0)
[2023-08-11 09:20] LABS: NT-proBNP 4920 pg/ml
--- NOTE | 2023-08-11 09:20 | W.PN.CRS1 ---
Addendum entered and electronically signed by Tripp Padilla MD 08/11/23 09:33:
the operation I peformed on 08/06/23 was for acute ischemic colitis
Original Note:
Today's Communication / Plan
-
Continue NGT until return of GI function.
? need for antibiotics
Consider a CT of the abdomen/pelvis if no other source for the fevers
Assessment/Plan
-
POD#5 s/p open left colectomy with takedown of splenic flexure and end distal sigmoid colostomy for ischemic colitis
Fevers and reintubated.
WBC improving and lactate normal.
Doubt ongoing ischemia or rectal stump dehiscence as the source of his fever.
Subjective Data
Procedure
08/06/2023- open left colectomy with takedown of splenic flexure and end distal sigmoid colostomy, ischemic colitis
Subjective Data
Date of Service: August 11, 2023
Intubated, arousable and denies abdominal pain.
Objective Data
-
Vital Signs
Temp Pulse Resp BP Pulse Ox
100.8 F H 86 18 152/88 98
08/11/23 03:35 08/11/23 07:31 08/11/23 07:31 08/11/23 05:00 08/11/23 07:31
Intake & Output
08/10/23 08/11/23 08/12/23
06:59 06:59 06:59
Intake Total 1434.1 / 1484.8 1881.8 / 1881.8
Output Total 3350 / 3550 3560 / 3560
Balance -1915.9 / -2065.2 -1678.2 / -1678.2
Intake:
IV fluids (Total) 1054.1 / 1104.8 1441.8 / 1441.8
Cardizem 80 / 80
Nss 1,000 ml @ 20 mls/hr IV . 200 / 200
Q24H [facility] Rx#:[id number]
amiodarone 384.1 / 400.8 400.8 / 400.8
fent 20.0 / 22.5 85.0 / 85.0
precedex 570.0 / 601.5 756.0 / 756.0
IV piggybacks 380 / 380 400 / 400
Amount instilled into GI Tube ( 40 / 40
Total)
[place] Sump 40 / 40
Output:
Drain Output (Total) 40 / 40 110 / 110
Right Lower Abdomen Damian- 40 / 40 110 / 110
Tello
Gastrointestinal tube output ( 150 / 150
Total)
[place] Sump 150 / 150
Urine, Balbuena 3310 / 3510 3300 / 3300
Lab Results
08/11/23 04:15
Physical Exam
-
General: No Acute Distress
Abdomen: Soft, Non Distended, Non Tender and Other (the inner stoma is pink and viable; PRAKASH with serosanguineous output)
Wound: Dressing in Place
--- NOTE | 2023-08-11 11:58 | W.PN.UPDATE ---
Update Note
Progress Note Update
PROCEDURE NOTE:
Patient placed in Trendelenburg. Patient's right neck and existing Cordis prepped and draped in the usual sterile fashion. J-wire advanced easily through the Cordis. Cordis removed and exchanged for triple-lumen catheter. Once triple-lumen in
the desired position it was sutured in place at the skin. All 3 ports aspirated easily and flushed with normal saline solution. Sterile dressing applied. Patient tolerated the procedure well. Chest x-ray ordered.
Linwood Balbuena III, MD
[facility]
[phone] (cfzu)
--- NOTE | 2023-08-11 12:10 | PTCARENOTE ---
Dr. Balbuena to bedside for wire exchange of Cordis to TLC without issue. Awaiting CXR read.
--- NOTE | 2023-08-11 12:53 | PTCARENOTE ---
Notified Dr Padilla of possible extubation today. Verified that no gastric access is necessary after OGT removed
[2023-08-11 13:50] LABS: B.E. 5.5 mmol/L; HCO3 28.4 mmol/L (21-28); O2 Saturation % 99.7 % (94-98); PCO2 34 mmHg (35-48); PO2 155 mmHg (83-108); pH 7.53 (7.35-7.45)
--- NOTE | 2023-08-11 14:20 | WOUNDNOTE ---
[facility] RN note: Patient's stoma dark pink, small amount if old bloody drainage in pouch. Stoma flush. Peristomal skin intact. Removed mid line abdominal post op Aquacell dressing to change colostomy appliance after confirming with Dr. Padilla. Dry gauze
applied to midline incision with stone in place. Yasmany wafer # [id number], Sena seal and Yasmany pouch # [id number] applied. Ostomy supplies and colostomy teaching folder in room. R sacral/buttocks blanchable red and intact. Skin on heels intact. Heels
off bed with air chair cushions. Patient turned with help from NINA Mittal. Patient for possible extubation today. Next appliance change due . Plan to contact if she wants to be included with ostomy teaching.
--- NOTE | 2023-08-11 14:41 | PTCARENOTE ---
Pt extubated to 40% venti-mask. SpO2 100%. OGT removed.
[2023-08-11 15:05] LABS: ALT (SGPT) 48 U/L (0-50); AST (SGOT) 45 U/L (17-59); Albumin 2.3 g/dl (3.5-5.0); Alkaline Phosphatase 116 U/L (38-126); Blood Urea Nitrogen 19 mg/dl (9-20); Calcium 7.9 mg/dl (8.4-10.2); Carbon Dioxide 32 mmol/L (22-30); Chloride 103 mmol/L (98-107); Estimated Creatinine Clearance 88 ml/min; Glucose 126 mg/dl (70-99); Magnesium 2.1 mg/dl (1.6-2.3); Potassium 3.4 mmol/L (3.5-5.1); Sodium 140 mmol/L (135-145); Total Bilirubin 0.7 mg/dl (0.2-1.3); Triglycerides 208 mg/dl (10-149); eGFR > 60.00
[2023-08-11] MEDS: FOLVITE 50.2000000000000028 MG IV (15:12)
--- NOTE | 2023-08-11 15:20 | W.PN.UPDATE ---
Update Note
Progress Note Update
Chest x-ray status post central line replacement (exchanged for Cordis to a triple-lumen over a wire) reviewed by me. Report reviewed as well. Tip of the catheter sits at the SVC/right atrial junction appropriately. Per report small right apical
pneumothorax. Will repeat x-ray now (3 hours post). Will repeat 6 hours again if stable. And then again in AM.
--- NOTE | 2023-08-11 15:45 | PTCARENOTE ---
After extubation, pt continues to pull off venti-mask. Stated, 'I want to . get all this sh*t off me and let me .' I reminded him of his extended family and all of the visitors. Pt then asked to talk to . After on phone, pt then
refusing to speak to her. updated on status. Precedex continues at 0.7mcg/kg/hr
[2023-08-11 17:12] LABS: Glucose - Point of Care 125 mg/dl (70-99)
[2023-08-11] MEDS: DUONEB INH (19:53)
--- NOTE | 2023-08-11 20:00 | PTCARENOTE ---
Resumed care of patient this evening. Received pt on precedex gtt and amio gtt. Pt is A&Ox1 to self and is very forgetful. MSAS was 3. Pt is in A-fib on tele monitor, has no edema, and weak but palpable pedal pulses. Surgical dressings intact and
has old drainage present. PRAKASH drain in place draining serosang drainage. B/L groin STEPHEN drains in place. VSS.
[2023-08-11] MEDS: KCL 50 IV (20:03)
[2023-08-11] MEDS: NSS IV (20:13)
[2023-08-11] MEDS: Parenteral Nutrition, Central 1920 IV (21:00)
--- NOTE | 2023-08-11 21:00 | PTCARENOTE ---
TPN initiated per protocol.
[2023-08-11] MEDS: NOVOLOG FLEXPEN-LOW RESISTANCE SC (23:46)
[2023-08-11] MEDS: CORDARONE 518 MG IV (23:55)
[2023-08-11 23:57] LABS: Glucose - Point of Care 137 mg/dl (70-99)
[2023-08-12] VITALS (23 sets, daily range): BP systolic 93–159; BP diastolic 71–109; PULSE 111–134; O2SAT 91; BMI 25.0
[2023-08-12] MEDS: DILAUDID 0.5 MG IV ×2 (00:46→14:41)
[2023-08-12] MEDS: PRECEDEX 100 IV (03:09)
[2023-08-12] MEDS: ZOSYN 50 IV ×4 (05:11→23:32)
[2023-08-12] MEDS: ZOFRAN 4 MG IV ×2 (05:12→14:06)
[2023-08-12 05:14] LABS: Blood Urea Nitrogen 21 mg/dl (9-20); Calcium 8.5 mg/dl (8.4-10.2); Carbon Dioxide 32 mmol/L (22-30); Chloride 104 mmol/L (98-107); Estimated Creatinine Clearance 103 ml/min; Glucose 135 mg/dl (70-99); Magnesium 2.3 mg/dl (1.6-2.3); Phosphorus 2.8 mg/dl (2.5-4.5); Potassium 3.2 mmol/L (3.5-5.1); Sodium 140 mmol/L (135-145); eGFR > 60.00
--- NOTE | 2023-08-12 05:45 | PTCARENOTE ---
Pt began vomiting large amount of green biliary like emesis. PRN dose of zofran administered by this RN. While vomiting pt's HR elevated to 160s. Pt stated he felt better after emesis.
[2023-08-12] MEDS: NOVOLOG FLEXPEN-LOW RESISTANCE SC ×3 (05:56→19:11)
[2023-08-12] MEDS: KCL 270 MEQ IV (06:19)
--- NOTE | 2023-08-12 07:10 | W.PN.INTV ---
Addendum entered and electronically signed by Libia Harrison DO 08/12/23 13:29:
CXR reviewed today, apical ptx resolved per rads report
On my review, no noted there
Do not see clinical evidence of atelecasis, per my review.
Original Note:
Today's Communication / Plan
Recommendations
Extubated and tolerating well
More agitation, confusion -- weaning down form precedex but will add PRN meds for this
NGT if nausea continues
TPN for CRC team
Stop abx and observe off
PT/OT, continue further postop care
Assessment
-
78-year-old male with a PMHx of PAD s/p kissing iliac stents bilaterally, AAA, COPD, tobacco use disorder, CAD s/p CABG x3 and A-fib s/p multiple failed cardioversions who presents with elective bilateral femoral endarterectomy and vascular
intervention for AAA. s/p bilateral femoral cutdowns, femoral endarterectomies with patch angioplasty and then eventually retrograde balloon angioplasty with stenting of the left iliac artery and endovascular repair of his aortic aneurysm on
08/05/23. Patient is transferred postoperatively to the ICU and senior risk manager service is consulted for additional management/recommendations.
Impression:
#Acute hypoxic respiratory failure s/p intubation on mechanical ventilation - likely combo of PNA and pulmonary edema, I suspect mainly the former though
s/p intubation 08/09/23
#Bilateral femoral artery stenosis s/p cutdown with endarterectomy with bovine patch angioplasty & left iliac artery stenting 08/05/23
#AAA s/p EVAR using physician modified aortic endograft 08/05/23
#Rectal bleeding/BRBPR due to ischemic colitis s/p flexible sigmoidoscopy with open left colectomy with takedown of splenic flexure and end-distal sigmoid colostomy 08/06/23
#Lactic acidosis due to ischemic colitis (likely as an unfortunate complication from the EVAR) - lactate normalized
#Leukocytosis
#Anemia - due to ischemic colitis as above
#A-fib with RVR s/p cardizem gtt and now amiodarone gtt
#Hx of COPD (moderate severity per spirometry from 2019)
#Alcohol use disorder c/b acute withdrawal
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
Hyperlipidemia
ED
PMR
hypertension
CAD s/p s/p stents (1993 + 1994), CABG x3
history of skin cancer
tobacco use disorder, PAD
NSVT s/p ablation
history of alcohol abuse
history of COPD
A-fib (diagnosed in 2016)
history of diverticulosis
history of NSTEMI
Plan:
Currently on phenobarbital & precedex; wean off precedex as tolerated
Can add PRN meds to wean precedex gtt
Neuro and vascular checks per protocol also continue
RASS goal 0
Can likely stop phenobarb as his ETOH w/d window is >7 days
Dilaudid PRN for pain
Acute hypoxic RF s/p intubation, had been on NRB
Extubated 08/11/23, doing well
Titrate FiO2 and PEEP to maintain SpO2 >88%
COPD history: resume home inhalers, stop nebs
Suspect acute HFpEF, proBNP 4920
CXR showing enlarged cardiac silhouette, last ECHO preserved function
Diurese as tolerated
Maintain MAP>70-90mmHg
Pt now off cardizem gtt and started on amiodarone; goal HR<110bpm
Continue IV lopressor 5mg q6hr prn
NPO post colon surgery, TPN continued
CRC following
NGT if there is persistent vomiting
Continue Abx with Zosyn and complete 7 day course
Culture neg to date
Consider stopping abx today and observing off
Monitor hemoglobin with serial CBC
Transfuse if needed to maintain Hb>7g/dL, plt>50k
Monitor blood sugars with goal BG 140-180mg/dL
Insulin supplementation if needed
Post-operative management as per vascular surgery and colorectal surgery - operation notes reviewed and recs appreciated
DVT prophylaxis recommended: HSQ
Stress ulcer ppx
Diagnostic Data
CXR 08-10-2023: Bilateral pulmonary opacities are not significantly changed compared to the previous chest radiograph from 08/09/2023.
CXR 08-09-2023: Increased bilateral airspace and interstitial compared to the chest radiograph from 08/08/2023 suggestive of worsening pulmonary edema versus pneumonia.
CXR 08-08-2023:Interval development of ill-defined perihilar airspace opacities as well as ill-defined opacity within the right lung base. No significant effusions. Findings suspicious for pulmonary edema versus less likely multifocal pneumonia.
Abd XR 08-06-2023: Feeding tube placement as described above. Moderate fecal material in the colon. Stable postsurgical change of the abdomen.
ECHO 05/09/23: Normal biventricular size and systolic function without regional wall motion abnormality. Estimated LVEF 50-55%. Mild concentric left ventricular hypertrophy. No significant valve disease.
Compared to 01/15/23: no significant change.
Prior Spirometry: 12/2019: FEV1/FVC: 45, FEV1: 1.71L (58% predicted), FVC: 3.76L (93% predicted), HYW78-89%: 18%
-----
Critical Care time 35 mins -- The patient is admitted for acute critical illness for the treatment of vital organ failure and/or prevention of further life-threatening conditions. Total care includes time spent in review of history, physical exam,
medications, hemodynamic/ventilator parameters, laboratory data, imaging and discussion with house staff, pharmacy, respiratory therapy, special programs director, and nursing.
Subjective Dataa
Subjective Data
Date of Service:
Date of Service: August 12, 2023
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
Subjective:
Extubated, tolerated well overnight
More vomiting, confusion this AM
OGT removed with extubation
Objective Data
Data Reviewed
Vital Signs / I&O / Oxygen:
Vital Signs
Temp Pulse Resp BP Pulse Ox
98.6 F 111 21 148/89 95
08/12/23 03:00 08/12/23 06:08 08/12/23 06:08 08/12/23 06:08 08/11/23 20:00
Intake and Output
08/11/23 08/12/23 08/13/23
06:59 06:59 06:59
Intake Total 1881.8 / 2195.0 2457.8 / 2457.8
Output Total 3560 / 3635 3483 / 3483
Balance -1678.2 / -1440.0 -1025.2 / -1025.2
SaO2 [A/C] 97
SaO2 95
Nasal Cannula flow liters per 4
minute
Physical Exam
General: Comfortable and Chills (negative)
HEENT: Normocephalic and Anicteric
Cardiovascular: Irregular Rhythm, Peripheral Edema (negative) and Other (Normal heart rate)
Respiratory: Wheeze (negative), Crackles (negative), Rhonchi (Bilaterally (R >L)) and Non-Labored Respirations
GI: Soft, Non Distended, Tender (ashlyn-umbilical region without peritoneal signs) and Other (Colostomy in place with small amount of blood seen in bag; no clots seen)
Neurology: Awake, Alert, No Motor Deficits, Tremors (negative) and Other (confused, hallucinating, not oriented and not answering appropriately)
Skin: Warm, Dry and Other (toes are cool to touch bilaterally)
Labs/Micro/Reports
Lab Data
08/11/23 04:15
08/12/23 04:37
Laboratory Results
08/11/23
13:36
pH 7.53 H
pCO2 34 L
pO2 155 H
HCO3 28.4 H
O2 Delivery Level
Microbiology
08/10/23 16:41 Blood/Venous Blood Culture - Preliminary
No Growth in 24 hours- Final report to follow
08/11/23 10:27 Endotracheal Gram Stain - Preliminary
08/10/23 16:41 Urine Legionella Urinary Antigen - Final
Negative for Legionella pneumophila Serogroup 1 antigen.
A negative result does not rule out the possiblity of
Legionella infection due to other serogroups or species of
Legionella. Clinical correlation is recommended.
08/10/23 16:41 Urine Streptococcus pneumoniae Antigen (M - Final
Negative for Streptococcus pneumoniae antigen.
A negative result does not exclude infection with
Streptococcus pneumoniae. Clinical correlation is
recommended.
[2023-08-12] MEDS: DUONEB 3 ML INH (08:09)
--- NOTE | 2023-08-12 08:55 | PN.CDI ---
CDI
- -
CDI:
Physician Documentation Request
Admit Date: 08/05/23 05:57
Dear Doctor /FIELD REVIEWER,
Please review the following and provide your response in the progress notes.
Clinical Indicators:
Pt admitted with Bilateral femoral artery stenosis s/p cutdown and stenting/EVAR on 08/05
Developed ischemic colitis/rectal bleeding flexible sigmoidoscopy, Grissom's procedure done 08/06
Progress note 08/06, ' I suspect he has ischemic colitis, most likely in the LUKAS distribution. Since he is having fever, leukocytosis and lactic acidosis...'
Pulmonary note 08/09 , ' Acute respiratory failure with hypoxemia on mechanical ventilation - likely combo of PNA and pulmonary edema, I suspect mainly the former though..'
Pt currently on Zosyn/Vital signs as below
08/05/23
06:45 08/05/23
16:45 08/05/23
18:45
Pulse 113 122
Resp Rate 23
08/05/23
21:00 08/06/23
02:00 08/06/23
03:23
Temp 101.0 F H
Pulse 129 126
08/06/23
02:45 08/07/23
03:00 08/10/23
03:08
Temp 100.7 F H
Pulse 128
Resp Rate 32
08/10/23
07:28 08/10/23
19:45 08/10/23
20:34
Temp 101 F H 101.3 F H 101 F H
08/05/23 08/06/23 08/06/23
17:04 03:27 16:36
WBC 23.5 H 25.3 H
Band Neutrophils 17 H
08/06/23 08/07/23 08/08/23
16:36 03:43 04:06
WBC 22.7 H 23.2 H 19.1 H
08/09/23 08/10/23
03:31 03:07
WBC 19.4 H 17.8 H
Please clarify which of the following most accurately describes the status of the patient's infection:
Sepsis
- Systemic manifestations of infection, with 2 or more SIRS criteria which include:
- Fever >100.4 degrees F or hypothermia < 96.8 degrees F
- Leukocytosis - WBC > 12,000 or leukopenia - WBC < 4,000 or > 10% bands
- Tachycardia > 90 beats per minute
- Tachypnea - RR > 20 breaths per minute or PaCO2 , 32mmHg
Source: Merck Manual 2013
Pneumonia Only, Without Systemic Illness
Other
Use of terms such as suspected, likely, concern for, or probable (associated with a specific diagnosis that is being evaluated, monitored, or treated as if it exists) are acceptable and can be coded in the inpatient setting, when documented at the
time of discharge.
Thank you,
Emely Monaco RN
CDI Specialist
[place] [facility]
Please use your independent medical judgment in providing your response.
--- NOTE | 2023-08-12 09:11 | W.PN.VS ---
Addendum entered and electronically signed by Linwood Balbuena III, MD 08/12/23 17:23:
This patient was seen and examined with BEBA Leiva. I agree with the history and physical exam as well as the assessment and plan.
Signed:
Linwood Balbuena III, MD
[facility]
[phone] (uuzz)
Original Note:
Today's Communication / Plan
-
Seen and assessed with Dr. Balbuena
Assessment/Plan
-
Plan/ POD# 7
� Afebrile, blood culture 1/2 negative, urine culture negative, cont zosyn for now, chest xray negative
� Continue lower extremity neurovascular checks.
� Continue n.p.o./NG tube per colorectal surgery.
� PRAKASH per colorectal surgery
- TPN
Subjective Data
-
Date of Service: August 12, 2023
Patient seen at bedside this a.m. with Dr. Balbuena. Heart rate in the 130s. No complaints at this time. Spoke with RN, only IV medication currently running his potassium.
Objective Data
-
Vital Signs
Temp Pulse Resp BP Pulse Ox
99.4 F 122 24 148/89 96
08/12/23 07:35 08/12/23 08:19 08/12/23 08:19 08/12/23 06:08 08/12/23 08:19
Intake and Output
08/11/23 08/12/23 08/13/23
06:59 06:59 06:59
Intake Total 1881.8 / 2195.0 2457.8 / 2457.8
Output Total 3560 / 3635 3483 / 3483
Balance -1678.2 / -1440.0 -1025.2 / -1025.2
Intake:
IV fluids (Total) 1441.8 / 1495.0 877.8 / 877.8
Nss 1,000 ml @ 20 mls/hr IV . 200 / 200 35 / 35
Q24H [facility] Rx#:[id number]
amiodarone 400.8 / 417.5 400.8 / 400.8
fent 85.0 / 90.0
precedex 756.0 / 787.5 420.0 / 420.0
IV piggybacks 400 / 660 780 / 780
TPN/PPN 800 / 800
Amount instilled into GI Tube ( 40 / 40
Total)
[place] Sump 40 / 40
Output:
Liquid stool amount 100 / 100
Rectum 100 / 100
Drain Output (Total) 110 / 110 215 / 215
Right Lower Abdomen Damian- 110 / 110 215 / 215
Tello
Gastrointestinal tube output ( 150 / 150
Total)
[place] Sump 150 / 150
Urine, Balbuena 3300 / 3375 3168 / 3168
Lab Results
08/11/23 04:15
08/12/23 04:37
Calcium 8.5 mg/dl (8.4-10.2) 08/12/23 04:37
Phosphorus 2.8 mg/dl (2.5-4.5) 08/12/23 04:37
Magnesium 2.3 mg/dl (1.6-2.3) 08/12/23 04:37
Total Bilirubin 0.7 mg/dl (0.2-1.3) 08/11/23 13:18
Direct Bilirubin 0.5 mg/dl (0.0-0.4) H 08/06/23 03:27
AST 45 U/L (17-59) 08/11/23 13:18
ALT 48 U/L (0-50) 08/11/23 13:18
Alkaline Phosphatase 116 U/L (38-126) 08/11/23 13:18
Total Protein 5.0 g/dl (6.3-8.2) L 08/11/23 13:18
Albumin 2.3 g/dl (3.5-5.0) L 08/11/23 13:18
Physical Exam
-
Afebrile
No tachypnea
Tachycardic in the 130s
Abdomen is soft, nondistended, no obvious tenderness. Stoma is slightly pale, but not necrotic appearing. Air and stool noted in bag.
Groins are flat bilaterally. Dressings clean dry and intact bilaterally. Right sybil changed.
Feet warm with dopplerable DP signals BL
Hemoglobin stable
Chest x-ray reviewed this a.m. no pneumo noted
[2023-08-12] MEDS: ASPIRIN 300 MG RECTAL (09:15)
[2023-08-12] MEDS: HEPARIN 5000 UNITS SC ×2 (09:15→16:27)
[2023-08-12] MEDS: PHENOBARBITAL 32.5 MG IV ×2 (09:16→20:20)
[2023-08-12] MEDS: CYANOCOBALAMIN 100 MCG IM (09:16)
[2023-08-12] MEDS: PROTONIX IV 40 MG IV (09:17)
[2023-08-12] MEDS: NSS (PRESERVATIVE FREE) 10 ML IV (09:17)
--- NOTE | 2023-08-12 09:34 | PN.CDI ---
CDI
- -
CDI:
Physician Documentation Request
Admit Date: 08/05/23 05:57
Dear Doctor
Please review the following and provide your response in the progress notes.
Clinical Indicators:
The diagnosis of Atelectasis was included in the signed post op CXR
Additional clinical indicators in the chart include:
CXR 08/06 ,' Minor atelectasis has developed in the medial right lung base.
Per Orders Incentive Spirometer
Please indicate in your progress notes if you are in agreement that the above diagnosis is valid for this patient:
____ - Atelectasis is a valid diagnosis (Please include it in your progress notes)
____ - Atelectasis is not a valid diagnosis for this patient
____ - Other
Use of terms such as suspected, likely, concern for, or probable (associated with a specific diagnosis that is being evaluated, monitored, or treated as if it exists) are acceptable and can be coded in the inpatient setting, when documented at the
time of discharge.
Thank you,
Emely Monaco RN
CDI Specialist
Blanket Text
Please use your independent medical judgment in providing your response.
--- NOTE | 2023-08-12 09:56 | W.PN.CD ---
Today's Communication / Plan
-
Move to PO dilt and Eliquis when taking PO and OK to anticoagulate from colorectal surgery and Vascular surgery perspective
Impression / Plan
-
Complex vascular surgery on 08/06/2023 for AAA/iliac disease/PAD
Ischemic colitis, postop vascular surgery
- Colostomy, flexible sigmoidoscopy and colectomy with a colostomy on 08/06/[address] Padilla
Perm AFib
- Rate OK for acute illness
- Resume anticoagulation when OK with surgery
NSVT, none overnight
Abnormal troponin, peak 0.043, likely nonischemic myocardial injury in the setting of acute illness
- trop peak in setting of critical illness 0.043
CAD, PCI with stenting 1993 & 1994, CABG 2016, stable without CP
Hypokalemia
Prior CVAs
HLD, continue rosuvastatin 40mg when bowel function returns
Current smoker, cessation recommended
Subjective: A bit of adominal pain. No CP or dyspnea
Echo 05/2023: LVEF 50-55%
Physical Exam
Vital Signs/Labs
Vital Signs
Temp Pulse Resp BP Pulse Ox
99.4 F 122 24 148/89 96
08/12/23 07:35 08/12/23 08:19 08/12/23 08:19 08/12/23 06:08 08/12/23 08:19
08/11/23 08/12/23 08/13/23
06:59 06:59 06:59
Actual Weight 84.3 kg 78.9 kg
08/11/23 04:15
08/12/23 04:37
PT 15.4 Sec (11.4-14.6) H 08/06/23 03:27
INR 1.21 08/06/23 03:27
APTT 31.7 Sec (23.4-35.0) 08/06/23 03:27
Magnesium 2.3 mg/dl (1.6-2.3) 08/12/23 04:37
Triglycerides 208 mg/dl (10-149) H 08/11/23 13:18
08/11/23
04:15
Cnn-J-Qpjzcahxcin Pept 4920
Physical Exam
Constitutional: Comfortable
Cardiovascular: Rhythm/rate is irregular and S1S2 is normal
Respiratory: Respiratory effort normal and Lungs clear to auscul. (decrease breath sounds)
GI: Soft
Neuro/Psych: Alert
Data Reviewed
-
Date of Service: August 12, 2023
[2023-08-12] MEDS: DUONEB INH (11:38)
--- NOTE | 2023-08-12 12:06 | W.PN.CRS1 ---
Today's Communication / Plan
-
Continue TPN and n.p.o. status. NG tube if further emesis.
Assessment/Plan
-
POD 6.
1. NG tube out since yesterday. Had some emesis overnight. Instructed nurses to reinsert NG if recurrent vomiting. Keep n.p.o. for now.
2. Continue TPN. Decreased free water in the TPN.
3. WBC down to 11.9 yesterday. No documented fever for 24 hours or so. On empiric antibiotics.
4. Continue ICU care.
Subjective Data
Procedure
08/06/2023- open left colectomy with takedown of splenic flexure and end distal sigmoid colostomy, ischemic colitis
Subjective Data
Date of Service: August 12, 2023
Awake. NG tube out. Apparently had some emesis overnight and there is some bilious looking fluid on his sheets. Patient denies nausea. He is asking for food.
Objective Data
-
Vital Signs
Temp Pulse Resp BP Pulse Ox
99.4 F 122 24 148/89 96
08/12/23 07:35 08/12/23 08:19 08/12/23 08:19 08/12/23 06:08 08/12/23 08:19
Intake & Output
08/11/23 08/12/23 08/13/23
06:59 06:59 06:59
Intake Total 1881.8 / 2195.0 2457.8 / 2457.8
Output Total 3560 / 3635 3483 / 3483
Balance -1678.2 / -1440.0 -1025.2 / -1025.2
Intake:
IV fluids (Total) 1441.8 / 1495.0 877.8 / 877.8
Nss 1,000 ml @ 20 mls/hr IV . 200 / 200 35 /
Q24H MARKO Rx#:[id number]
amiodarone 400.8 / 417.5 400.8 / 400.8
fent 85.0 / 90.0
precedex 756.0 / 787.5 420.0 / 420.0
IV piggybacks 400 / 660 780 / 780
TPN/PPN 800 / 800
Amount instilled into GI Tube ( 40 / 40
Total)
Young Sump 40 / 40
Output:
Liquid stool amount 100 / 100
Rectum 100 / 100
Drain Output (Total) 110 / 110 215 / 215
Right Lower Abdomen Damian- 110 / 110 215 / 215
Tello
Gastrointestinal tube output ( 150 / 150
Total)
Young Sump 150 / 150
Urine, Balbuena 3300 / 3375 3168 / 3168
Lab Results
08/11/23 04:15
08/12/23 04:37
Physical Exam
-
General: No Acute Distress
Chest: Clear
Cardiovascular: Sinus Tachycardia
Abdomen: Distended (Mild), Tender (Incisional) and Other (Stoma viable with gas and stool in bag.)
Incision: Clear, Dry, Intact and No Skin Erythema
[2023-08-12 12:55] LABS: Glucose - Point of Care 109 mg/dl (70-99)
[2023-08-12] MEDS: FOLVITE 50.2000000000000028 MG IV (14:12)
--- NOTE | 2023-08-12 16:16 | CM ---
CM following re: discharge planning.
Discussed in rounds, reviewed pt's chart, met with pt. Per Rounds meeting, pt intubated on Friday, extubated yesterday, remains confused, agitated at time.
PT and OOT evaluations noted - SNF level of care recommended. Pt is not in clear mind to discuss after care SNF level of care. CM will discussed it with pt's spouse who originally requested to bring the pt home with VN services.
D/C plan: SNF level of care. Will coordinate with pt's spouse.
CM will follow with discharge plan updates as hospitalization progresses
[2023-08-12] MEDS: LOPRESSOR 5 MG IV ×2 (16:27→22:11)
[2023-08-12] MEDS: DILAUDID 1 MG IV ×3 (16:40→23:37)
[2023-08-12 17:26] LABS: Hematocrit 25.3 % (39.0-52.0); Hemoglobin 8.7 g/dL (13.0-18.0); Mean Corp Hgb Conc. 34.4 g/dL (33.0-37.0); Mean Corpuscular Hgb 32.1 pg (27.0-31.0); Mean Corpuscular Volume 93.4 fL (80.0-94.0); Mean Platelet Volume 11.3 fL (7.4-10.4); Platelet Count 261 10^3/uL (130-400); Red Blood Cell Count 2.71 10^6/uL (4.70-6.10); Red Cell Dist. Width 14.3 % (11.5-14.5); White Blood Cell Count 17.4 10^3/uL (4.8-10.8)
[2023-08-12] MEDS: HEPARIN 25000 UNITS/250 ML IV (17:30)
[2023-08-12 17:35] LABS: APTT 34.7 Sec (23.4-35.0)
[2023-08-12 18:39] LABS: Glucose - Point of Care 121 mg/dl (70-99)
--- NOTE | 2023-08-12 20:04 | PTCARENOTE ---
0800-Received pt awake and alert.Speech is mostly appropriate with some confused conversation.Pt states he thinks he was in a car accident.Pt reoriented as needed.Follows commands consistently.Denies pain.Assists with repositioning.A Fib
noted.Amiodarone,Precedex gtt infusing via Right DL PICC.TPN infusing via Right IJ TLC.Coarse breath sounds throughout.Occasional productive cough,expectorating thick parks sputum.POX 95% 4l NC O2.c/o intermittent nausea.No emesis at this time.Left
colostomy draining black soft stool.Balbuena draining yellow urine.Skin integrity as documented.
1000-Pt asking to get OOB to the chair.Early mobility OOB orders obtained.PT/OT assisted pt OOB to chair.
1200-Pt requested to get back to bed.Pt vomited ~ [address] Ulloa made aware.Holt inserted as ordered.Pt assessed.No other change in assessment.
1406-Pt c/o nausea.Medicated with Zofran.
1441-Pt c/o severe abdominal pain.Medicated with Dilaudid.
1500-Pt vomiting despite Holt. made aware.Abdominal xray obtained.Holt removed and a new Holt reinserted.Bilious drainage via Holt noted.
1600-Pt assessed.No further emesis noted.No change in assessment noted.1627-Pt c/o abdominal pain.Medicated with Dilaudid as ordered.
1730-Pt states he is more comfortable.Heparin gtt initiated as ordered.
--- NOTE | 2023-08-12 20:20 | PTCARENOTE ---
Rec'd pt resting in bed,mitts applied to hands since pt pulling at [place], oriented to person, needs reorientation to place/time, zyprexia 2.5 mg oral for restlessness; temp 100.1, afib,amiodarone gtt at 0.5mg, hep gtt at 900 units/hr; bp stable,
distal pulses via doppler + anasarca; skin warm/dry, o2 4 liters nc, lungs coarse, decr in bases, sat 93, hypo bowel sounds, colostomy w/ black loose drainage, bilat STEPHEN dsgs intact, R PRAKASH drained 30ml SES liquid, R salem to low inter suction
draining bile, irrigated w/30 h20, no vomiting, dotson draining yellow urine
2039- dilaudid 1mg iv given for pain
[2023-08-12] MEDS: ZYPREXA ZYDIS (ORALLY DISINTEGRATING) 2.5 MG PO (20:21)
[2023-08-12] MEDS: Parenteral Nutrition, Central 1510 IV (20:48)
[2023-08-12] MEDS: OFIRMEV 100 IV (22:14)
--- NOTE | 2023-08-12 22:15 | PTCARENOTE ---
lopressor 5mg iv given for HR 120'2, ofirmev 1 gm iv given for pain
[2023-08-12 23:31] LABS: Glucose - Point of Care 181 mg/dl (70-99)
[2023-08-12 23:49] LABS: APTT 70.7 Sec (23.4-35.0)
[2023-08-12] MEDS: NOVOLOG FLEXPEN-LOW RESISTANCE 1 UNITS SC (23:58)
[2023-08-13] VITALS (24 sets, daily range): BP systolic 98–196; BP diastolic 50–154; BMI 24.6
--- NOTE | 2023-08-13 | PTCARENOTE ---
Sys reviewed, dilaudid 1mg iv given for pain, hep gtt incr to 1000 units for ptt 70.7
--- NOTE | 2023-08-13 00:32 | PTCARENOTE ---
Chana Cochran NP aware of Bp- no orders rec'd, to cont to monitor
[2023-08-13] MEDS: ZYPREXA ZYDIS (ORALLY DISINTEGRATING) 2.5 MG PO (01:34)
--- NOTE | 2023-08-13 01:35 | PTCARENOTE ---
restless, confused, zyprexa 2.5 mg orally given, CHG bath done, linens changed
[2023-08-13 03:06] LABS: Hematocrit 24.9 % (39.0-52.0); Hemoglobin 8.8 g/dL (13.0-18.0); Mean Corp Hgb Conc. 35.3 g/dL (33.0-37.0); Mean Corpuscular Hgb 32.6 pg (27.0-31.0); Mean Corpuscular Volume 92.2 fL (80.0-94.0); Platelet Count 254 10^3/uL (130-400); Red Cell Dist. Width 14.2 % (11.5-14.5); White Blood Cell Count 16.5 10^3/uL (4.8-10.8)
[2023-08-13] MEDS: APRESOLINE 10 MG IV ×2 (03:16→11:28)
[2023-08-13] MEDS: DILAUDID 1 MG IV ×5 (03:17→22:13)
--- NOTE | 2023-08-13 03:17 | PTCARENOTE ---
BDougherty, SECURITY OPERATIONS SPECIALIST aware of bp- apresoline 10mg iv given, dilaudid 1mg iv given for pain
[2023-08-13] MEDS: LOPRESSOR 5 MG IV (03:57)
--- NOTE | 2023-08-13 03:58 | PTCARENOTE ---
sys reviewed, lopressor 5mg iv given for HR 120's, cont to be restless, disoriented
[2023-08-13 04:25] LABS: Blood Urea Nitrogen 25 mg/dl (9-20); Calcium 8.5 mg/dl (8.4-10.2); Carbon Dioxide 28 mmol/L (22-30); Chloride 105 mmol/L (98-107); Estimated Creatinine Clearance 56 ml/min; Glucose 146 mg/dl (70-99); Magnesium 2.2 mg/dl (1.6-2.3); Phosphorus 3.1 mg/dl (2.5-4.5); Potassium 3.4 mmol/L (3.5-5.1); Sodium 137 mmol/L (135-145); eGFR > 60.00
[2023-08-13] MEDS: KCL 100 IV (04:35)
--- NOTE | 2023-08-13 04:36 | PTCARENOTE ---
40 kcl/100 hung over 4hr per order
--- NOTE | 2023-08-13 05:15 | PTCARENOTE ---
dozing for very short intervals
[2023-08-13] MEDS: NOVOLOG FLEXPEN-LOW RESISTANCE 1 UNITS SC ×3 (05:38→17:48)
[2023-08-13 05:46] LABS: Glucose - Point of Care 172 mg/dl (70-99)
[2023-08-13] MEDS: CORDARONE 518 MG IV (05:47)
[2023-08-13 06:05] LABS: APTT 80.3 Sec (23.4-35.0)
--- NOTE | 2023-08-13 06:17 | PTCARENOTE ---
B RAHEEL Cochran aware of elevated bp, pt in pain, dilaudid 1mg iv given
--- NOTE | 2023-08-13 07:12 | W.PN.INTV ---
Today's Communication / Plan
Recommendations
Ongoing confusion, increase zyprexa
Stop phenobarb taper
NGT in place, TPN ongoing per surgical team
Trial hydralazine dose for BP, labetalol added per cards
IV amio ongoing
PT/OT
Can likely transfer to IMU
Assessment
-
78-year-old male with a PMHx of PAD s/p kissing iliac stents bilaterally, AAA, COPD, tobacco use disorder, CAD s/p CABG x3 and A-fib s/p multiple failed cardioversions who presents with elective bilateral femoral endarterectomy and vascular
intervention for AAA. s/p bilateral femoral cutdowns, femoral endarterectomies with patch angioplasty and then eventually retrograde balloon angioplasty with stenting of the left iliac artery and endovascular repair of his aortic aneurysm on
08/05/23. Patient is transferred postoperatively to the ICU and shrub grower service is consulted for additional management/recommendations.
Impression:
#Acute hypoxic respiratory failure s/p intubation on mechanical ventilation - likely combo of PNA and pulmonary edema, I suspect mainly the former though
s/p intubation 08/09/23
#Bilateral femoral artery stenosis s/p cutdown with endarterectomy with bovine patch angioplasty & left iliac artery stenting 08/05/23
#AAA s/p EVAR using physician modified aortic endograft 08/05/23
#Rectal bleeding/BRBPR due to ischemic colitis s/p flexible sigmoidoscopy with open left colectomy with takedown of splenic flexure and end-distal sigmoid colostomy 08/06/23
#Lactic acidosis due to ischemic colitis (likely as an unfortunate complication from the EVAR) - lactate normalized
#Leukocytosis
#Anemia - due to ischemic colitis as above
#A-fib with RVR s/p cardizem gtt and now amiodarone gtt
#Hx of COPD (moderate severity per spirometry from 2019)
#Alcohol use disorder c/b acute withdrawal
ICU delirium
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
Hyperlipidemia
ED
PMR
hypertension
CAD s/p s/p stents (1993 + 1994), CABG x3
history of skin cancer
tobacco use disorder, PAD
NSVT s/p ablation
history of alcohol abuse
history of COPD
A-fib (diagnosed in 2016)
history of diverticulosis
history of NSTEMI
Plan:
Likely with ICU delirium, has remained off IV sedation >24 hours
Stop phenobarb
Neuro and vascular checks per protocol also continue
RASS goal 0
Dilaudid PRN for pain
Can increase Zyprexa SL dosing, limited with no PO access
Acute hypoxic RF s/p intubation, had been on NRB
Extubated 08/11/23, doing well
Titrate FiO2 and PEEP to maintain SpO2 >88%
COPD history: resume home inhalers, stop nebs
Suspect acute HFpEF, proBNP 4920
CXR showing enlarged cardiac silhouette, last ECHO preserved function
Diurese as tolerated
Maintain MAP>70-90mmHg
Pt now off cardizem gtt and started on amiodarone; goal HR<110bpm
Continue IV lopressor 5mg q6hr prn
Trial Hydralazine for BP, labetalol added
Hep IV gtt
NPO post colon surgery, TPN continued
CRC following
NGT replaced for persistent vomiting
Continue Abx with Zosyn and complete 7 day course
Culture neg to date
Off abx/observing off
Monitor hemoglobin with serial CBC
Transfuse if needed to maintain Hb>7g/dL, plt>50k
Monitor blood sugars with goal BG 140-180mg/dL
Insulin supplementation if needed
Post-operative management as per vascular surgery and colorectal surgery - operation notes reviewed and recs appreciated
DVT prophylaxis recommended: Hep IV, on Eliquis at home
Stress ulcer ppx
Diagnostic Data
CXR 08-10-2023: Bilateral pulmonary opacities are not significantly changed compared to the previous chest radiograph from 08/09/2023.
CXR 08-09-2023: Increased bilateral airspace and interstitial compared to the chest radiograph from 08/08/2023 suggestive of worsening pulmonary edema versus pneumonia.
CXR 08-08-2023:Interval development of ill-defined perihilar airspace opacities as well as ill-defined opacity within the right lung base. No significant effusions. Findings suspicious for pulmonary edema versus less likely multifocal pneumonia.
Abd XR 08-06-2023: Feeding tube placement as described above. Moderate fecal material in the colon. Stable postsurgical change of the abdomen.
ECHO 05/09/23: Normal biventricular size and systolic function without regional wall motion abnormality. Estimated LVEF 50-55%. Mild concentric left ventricular hypertrophy. No significant valve disease.
Compared to 01/15/23: no significant change.
Prior Spirometry: 12/2019: FEV1/FVC: 45, FEV1: 1.71L (58% predicted), FVC: 3.76L (93% predicted), LHQ95-96%: 18%
-----
Critical Care time 35 mins -- The patient is admitted for acute critical illness for the treatment of vital organ failure and/or prevention of further life-threatening conditions. Total care includes time spent in review of history, physical exam,
medications, hemodynamic/ventilator parameters, laboratory data, imaging and discussion with house staff, pharmacy, respiratory therapy, supervisor bakery sanitation, and nursing.
Subjective Dataa
Subjective Data
Date of Service:
Date of Service: August 13, 2023
Chief Complaint: Fishing Manager Follow Up
Subjective:
no acute events on, remains confused, not sleeping consistently
NGT in place, no further vomiting
off dilt gtt but hypertensive
Objective Data
Data Reviewed
Vital Signs / I&O / Oxygen:
Vital Signs
Temp Pulse Resp BP Pulse Ox
99 F 109 14 156/101 100
08/13/23 03:58 08/13/23 06:12 08/13/23 06:12 08/13/23 06:11 08/13/23 06:12
Intake and Output
08/12/23 08/13/23 08/14/23
06:59 06:59 06:59
Intake Total 2457.8 / 2566.5 2297.6 / 2297.6
Output Total 3483 / 3518 2515 / 2515
Balance -1025.2 / -951.5 -217.4 / -217.4
SaO2 [A/C] 97
SaO2 100
Nasal Cannula flow liters per 4
minute
Physical Exam
General: Comfortable and Chills (negative)
HEENT: Normocephalic and Anicteric
Cardiovascular: Irregular Rhythm (tachycardic) and Peripheral Edema (negative)
Respiratory: Wheeze (negative), Crackles (negative), Rhonchi (Bilaterally (R >L)) and Non-Labored Respirations
GI: Soft, Non Distended, Tender (ashlyn-umbilical region without peritoneal signs), NG Tube and Other (Colostomy in place with small amount of blood seen in bag; no clots seen)
Neurology: Awake, Alert, No Motor Deficits, Tremors (negative) and Other (confused, hallucinating, not oriented and not answering appropriately)
Skin: Warm, Dry and Other (toes are cool to touch bilaterally)
Labs/Micro/Reports
Lab Data
08/13/23 03:00
08/13/23 03:00
Laboratory Results
08/12/23 08/12/23 08/13/23
17:09 23:29 05:37
APTT 34.7 70.7 H 80.3 H
Microbiology
08/10/23 16:41 Blood/Venous Blood Culture - Preliminary
No Growth in 48 hours- Final report to follow
08/11/23 13:18 Blood/Venous Blood Culture - Preliminary
No Growth in 24 hours- Final report to follow
08/11/23 10:27 Endotracheal Respiratory Culture - Preliminary
NO GROWTH
08/11/23 10:27 Endotracheal Gram Stain - Preliminary
08/10/23 16:41 Urine Legionella Urinary Antigen - Final
Negative for Legionella pneumophila Serogroup 1 antigen.
A negative result does not rule out the possiblity of
Legionella infection due to other serogroups or species of
Legionella. Clinical correlation is recommended.
08/10/23 16:41 Urine Streptococcus pneumoniae Antigen (M - Final
Negative for Streptococcus pneumoniae antigen.
A negative result does not exclude infection with
Streptococcus pneumoniae. Clinical correlation is
recommended.
--- NOTE | 2023-08-13 08:00 | PTCARENOTE ---
Assumed care of patient. Pt rec'd alert and conversive. Confused to place and time but overally pleasant. Follow simple commands. Bilateral mitts on. MERRILL's. S1 S2 irregular w/ afib on monitor. +DP/PT's by doppler. Rec'd on 4L N/C...sats
100%. O2 decreased to 2L N/C...sats 100%. Lungs clear anteriorly...coarse left base. Encouraged to cough and deep breath. IS done...500mls. Expectorating scant amts of parks mucous. Right nare salem -> LIWS. Abdomen soft, tender, hypo BS. LLQ
colostomy....flatus noted; scant liquid stool. Mid line abdominal incision w/ drsg. RLQ PRAKASH drain...serous drainage. Bilateral groin STEPHEN dressings...left groin w/ old serous drainage. RIJ TLC w/ heparin gtt and TPN infusing. R DL PICC w/
amiodarone gtt and KCL rider infusing. VS documented. Will continue to monitor closely.
--- NOTE | 2023-08-13 08:05 | W.PN.VS ---
Addendum entered and electronically signed by Zeb Rivera MD 08/13/23 12:48:
Seen and examined with INDUSTRIAL PLANT CUSTODIAN Cook earlier this a.m. This is a late entry. Fever curve improving. Tmax 100.1. Afebrile subsequently. A-fib on monitor, slightly tachycardic still. Abdomen soft, mildly distended. No significant tenderness. Stoma
with good function. Air and stool in bag. Groins flat. No hematomas. Feet warm. Plan/as discussed and noted below. Carefully change stephen dressings. Remainder of plan as noted below.
Original Note:
Today's Communication / Plan
-
Patient seen and examined at bedside with Dr. Zeb Rivera, below plan reviewed with attending.
Assessment/Plan
-
Plan/ POD# 8
� Continue lower extremity neurovascular checks.
� Continue n.p.o./NG tube per colorectal surgery.
� PRAKASH per colorectal surgery
- TPN
- BL STEPHEN dressing will be changed by vascular INDUSTRIAL PLANT CUSTODIAN today
- Continue to encourage incentive spirometer
- Heparin gtt for permanent a-fib, will transition to PO eliquis when tolerating diet
- Appreciate all consultants
Subjective Data
-
Date of Service: August 13, 2023
Patient seen and examined at bedside, offers no complaints. NGT in place, reports improvement in nausea and vomiting.
Objective Data
-
Vital Signs
Temp Pulse Resp BP Pulse Ox
98.6 F 109 14 156/101 100
08/13/23 07:32 08/13/23 06:12 08/13/23 06:12 08/13/23 06:11 08/13/23 06:12
Intake and Output
08/12/23 08/13/23 08/14/23
06:59 06:59 06:59
Intake Total 2457.8 / 2566.5 2297.6 / 2297.6
Output Total 3483 / 3518 2515 / 2515
Balance -1025.2 / -951.5 -217.4 / -217.4
Intake:
IV fluids (Total) 877.8 / 906.5 600.6 / 600.6
Heparin 132 / 132
Nss 1,000 ml @ 20 mls/hr IV . 35 / 35
Q24H MARKO Rx#:[id number]
amiodarone 400.8 / 417.5 384.1 / 384.1
fent 22
kcl 67.5 / 67.5
precedex 420.0 / 432.0
IV piggybacks 780 / 780
TPN/PPN 800 / 880 1607 / 1607
Amount instilled into GI Tube ( 90 / 90
Total)
[place] Sump 90 / 90
Output:
Liquid stool amount 100 / 100 275 / 275
Colostomy 275 / 275
Rectum 100 / 100
Drain Output (Total) 215 / 215 110 / 110
Right Lower Abdomen Damian- 215 / 215 110 / 110
Tello
Gastrointestinal tube output ( 450 / 450
Total)
Aurora Sump 450 / 450
Urine, Balbuena 3168 / 3203 1680 / 1680
Lab Results
08/13/23 03:00
08/13/23 03:00
Calcium 8.5 mg/dl (8.4-10.2) 08/13/23 03:00
Phosphorus 3.1 mg/dl (2.5-4.5) 08/13/23 03:00
Magnesium 2.2 mg/dl (1.6-2.3) 08/13/23 03:00
Total Bilirubin 0.7 mg/dl (0.2-1.3) 08/11/23 13:18
Direct Bilirubin 0.5 mg/dl (0.0-0.4) H 08/06/23 03:27
AST 45 U/L (17-59) 08/11/23 13:18
ALT 48 U/L (0-50) 08/11/23 13:18
Alkaline Phosphatase 116 U/L (38-126) 08/11/23 13:18
Total Protein 5.0 g/dl (6.3-8.2) L 08/11/23 13:18
Albumin 2.3 g/dl (3.5-5.0) L 08/11/23 13:18
Physical Exam
-
Afebrile
No tachypnea
A-fib on monitor
Abdomen is soft, nondistended, no obvious tenderness. Stoma is slightly pale, but not necrotic appearing. Air and stool noted in bag.
Groins are flat bilaterally. Dressings dry and intact bilaterally.
Feet warm with dopplerable DP signals BL
[2023-08-13] MEDS: NSS (PRESERVATIVE FREE) 10 ML IV (08:18)
[2023-08-13] MEDS: PROTONIX IV 40 MG IV (08:19)
[2023-08-13] MEDS: SPIRIVA RESPIMAT 2.5 MCG 2 PUFF INH (08:19)
[2023-08-13] MEDS: PHENOBARBITAL 32.5 MG IV (08:23)
--- NOTE | 2023-08-13 08:26 | W.PN.CRS1 ---
Today's Communication / Plan
-
Continue current care.
Assessment/Plan
-
POD 7.
1.� NGT back in.� Keep npo.
2.� Continue TPN.�
3.� WBC 16.5.� Tm 100.1.� On empiric antibiotics.
4.� Continue ICU care.
Subjective Data
Procedure
08/06/2023- open left colectomy with takedown of splenic flexure and end distal sigmoid colostomy, ischemic colitis
Subjective Data
Date of Service: August 13, 2023
Awake. In restraints with NGT in place. Admits to incisional pain.
Objective Data
-
Vital Signs
Temp Pulse Resp BP Pulse Ox
98.6 F 109 14 156/101 100
08/13/23 07:32 08/13/23 06:12 08/13/23 06:12 08/13/23 06:11 08/13/23 06:12
Intake & Output
08/12/23 08/13/23 08/14/23
06:59 06:59 06:59
Intake Total 2457.8 / 2566.5 2297.6 / 2297.6
Output Total 3483 / 3518 2515 / 2515
Balance -1025.2 / -951.5 -217.4 / -217.4
Intake:
IV fluids (Total) 877.8 / 906.5 600.6 / 600.6
Heparin 132 / 132
Nss 1,000 ml @ 20 mls/hr IV . 35 / 35
Q24H MARKO Rx#:[id number]
amiodarone 400.8 / 417.5 384.1 / 384.1
fent
kcl 67.5 / 67.5
precedex 420.0 / 432.0
IV piggybacks 780 / 780
TPN/PPN 800 / 880 1607 / 1607
Amount instilled into GI Tube ( 90 / 90
Total)
[place]ruff Sump 90 / 90
Output:
Liquid stool amount 100 / 100 275 / 275
Colostomy 275 / 275
Rectum 100 / 100
Drain Output (Total) 215 / 215 110 / 110
Right Lower Abdomen Damian- 215 / 215 110 / 110
Telol
Gastrointestinal tube output ( 450 / 450
Total)
Woodruff Sump 450 / 450
Urine, Balbuena 3168 / 3203 1680 / 1680
Lab Results
08/13/23 03:00
08/13/23 03:00
Physical Exam
-
General: No Acute Distress
Chest: Clear
Cardiovascular: Sinus Tachycardia
Abdomen: Distended (mild), Tender (mild incisional) and Other (stoma viable with gas in bag)
[2023-08-13] MEDS: ASPIRIN 300 MG RECTAL (08:29)
[2023-08-13] MEDS: CYANOCOBALAMIN 100 MCG IM (08:33)
--- NOTE | 2023-08-13 10:40 | W.PN.CD ---
Today's Communication / Plan
-
Add standing labetalol for BP control
Continue IV Amio for rate control (he has permanent AFib so no plans for long term care phlebotomist AMIO)
Stop IV heparin when taking PO => start PO Eliquis
Impression / Plan
-
Complex vascular surgery on 08/06/2023 for AAA/iliac disease/PAD
Ischemic colitis, postop vascular surgery
- Colostomy, flexible sigmoidoscopy and colectomy with a colostomy on 08/06/[address] Padilla
Perm AFib
- Rate OK for acute illness
- IV heparin while NPO => then back to Eliquis
- IV Amio for rate control while NPO => then back to his PO rate control regimen
HTN
- Add IV labetalol while NPO
NSVT, normal LVEF, BB
Abnormal troponin, peak 0.043, likely nonischemic myocardial injury in the setting of acute illness
- trop peak in setting of critical illness 0.043
CAD, PCI with stenting 1993 & 1994, CABG 2016, stable without CP
Hypokalemia
Prior CVAs
HLD, continue rosuvastatin 40mg when bowel function returns
Current smoker, cessation recommended
Subjective: . No CP or dyspnea
Echo 05/2023: LVEF 50-55%
Physical Exam
Vital Signs/Labs
Vital Signs
Temp Pulse Resp BP Pulse Ox
98.6 F 117 20 147/104 97
08/13/23 07:32 08/13/23 09:04 08/13/23 09:04 08/13/23 08:11 08/13/23 09:04
08/12/23 08/13/23 08/14/23
06:59 06:59 06:59
Actual Weight 78.9 kg 77.9 kg
08/13/23 03:00
08/13/23 03:00
PT 15.4 Sec (11.4-14.6) H 08/06/23 03:27
INR 1.21 08/06/23 03:27
APTT 80.3 Sec (23.4-35.0) H 08/13/23 05:37
Magnesium 2.2 mg/dl (1.6-2.3) 08/13/23 03:00
Triglycerides 208 mg/dl (10-149) H 08/11/23 13:18
08/11/23
04:15
Iqp-[id number]-Jcowjqqmwpv Pept 4920
Physical Exam
Constitutional: No acute distress
Cardiovascular: Rhythm/rate is irregular
Respiratory: Respiratory effort normal and Lungs clear to auscul.
GI: Soft
Data Reviewed
-
Date of Service: August 13, 2023
[2023-08-13 11:46] LABS: Glucose - Point of Care 165 mg/dl (70-99)
[2023-08-13 11:56] LABS: APTT 69.4 Sec (23.4-35.0)
--- NOTE | 2023-08-13 12:30 | PTCARENOTE ---
No major changes in physical assessment except pt did vomit small amt. Hair washed and linens changed. Pt OOB to chair w/ assist x 2. On
R/A...sats 100%. Bilateral STEPHEN dressings changed by vascular team. PRN dilaudid given for abdominal pain. Mitts removed. Call johnston within reach. Will continue to monitor closely.
[2023-08-13] MEDS: TRANDATE 10 MG IV ×2 (12:36→17:34)
[2023-08-13] MEDS: FOLVITE 50.2000000000000028 MG IV (13:24)
--- NOTE | 2023-08-13 13:29 | CM ---
CM following re: discharge planning.
Discussed in rounds, reviewed pt's chart, met with pt and pt's spouse at bedside.
PT and OOT evaluations noted - SNF level of care recommended. CM discussed it with pt's spouse and she expressed her agreement. A list of SNFs provided to pt's spouse and she preferred [facility]. A referral to [facility] made. Awaiting for determination.
D/C plan: [facility] when pt is medically stable.
CM will follow with discharge plan updates as hospitalization progresses
--- NOTE | 2023-08-13 13:47 | W.PN.UPDATE ---
Update Note
Progress Note Update
CDI:
Physician Documentation Request
Admit Date: 08/05/23 05:57
Please review the following and�provide your response in the progress notes.
Clinical Indicators:
Pt admitted with Bilateral femoral artery stenosis s/p cutdown and stenting/EVAR on ESBL 500 ml
Now with concern for ischemic colitis/rectal bleeding��flexible sigmoidoscopy, Grissom's procedure done ESBL 50 ml
Front End Loader Operator note , '�Rectal bleeding/BRBPR due to ischemic colitis s/p flexible sigmoidoscopy with open left colectomy with takedown of splenic flexure and end-distal sigmoid colostomy (POD#1)...Anemia - due to ischemic colitis as above...'
Trended HGB/Hematocrits below
� 07/31/23
� 09:17
Hgb �13.7
Hct 39.7
� 08/05/23 08/06/23
� 17:04 03:27
Hgb 12.0L �10.9 L
Hct �35.0 L 30.6
� 08/06/23 08/07/23
� 16:36 03:43
Hgb �10.2 L �9.6 L
Hct 28.8L 27.5L
Based on the above, could you clarify, in your progress note, which of the following is the most likely type of anemia you are evaluating, monitoring and/or treating?
Acute blood loss anemia without need for transfusion
--- NOTE | 2023-08-13 14:45 | PTCARENOTE ---
Xray done to confirm right nare salem. Radiology recommended advancement of tube by 15cm. [place] came out left corner of mouth. NGT removed and made aware. Order rec'd to replace salem.
--- NOTE | 2023-08-13 16:00 | PTCARENOTE ---
New 16fr [place]em placed in right nare w/ staff assistance. Bilateral wrist restraints applied due to pt's chronic attempts to remove salem. Auscultation done to confirm placement. Currently on R/A...sats 96%. No other major changes in physical
assessment. VS documented. Will continue to monitor.
[2023-08-13] MEDS: HEPARIN 25000 UNITS/250 ML IV (17:33)
[2023-08-13 17:59] LABS: Glucose - Point of Care 160 mg/dl (70-99)
[2023-08-13] MEDS: TYLENOL/FEVERALL 650 MG RECTAL (18:24)
--- NOTE | 2023-08-13 19:30 | PTCARENOTE ---
Resumed care of pt this evening. Received pt on amio, heparin, and TPN gtts per protocol via right triple lumen IJ and right PICC central lines. Pt's mentation is confused and forgetful. Pt is A&Ox1 to self only, has generalized weakness, and can
move all 4 extremities. Pt is in A-fib on tele monitor, has trace GA edema, and weak but palpable pedal pulses. Pt is NPO w/ [place] sump in rt nare connected to intermittent wall suction draining green drainage. Pt's abdomen has active BS and
colostomy stoma is flat pink and has some black stool noted in the bag. Balbuena in place and is draining yellow colored urine. Surgical dressings are C/D/I.
[2023-08-13] MEDS: Parenteral Nutrition, Central 1510 IV (20:53)
[2023-08-14] VITALS (22 sets, daily range): BP systolic 122–167; BP diastolic 77–123; PULSE 100–115; BMI 24.7
[2023-08-14] MEDS: NOVOLOG FLEXPEN-LOW RESISTANCE 1 UNITS SC ×4 (00:13→17:47)
[2023-08-14] MEDS: TRANDATE 10 MG IV ×5 (00:14→23:21)
[2023-08-14 00:21] LABS: Glucose - Point of Care 171 mg/dl (70-99)
[2023-08-14] MEDS: OFIRMEV 100 IV ×2 (02:14→23:31)
[2023-08-14 03:15] LABS: Hematocrit 24.4 % (39.0-52.0); Hemoglobin 8.5 g/dL (13.0-18.0); Mean Corp Hgb Conc. 34.8 g/dL (33.0-37.0); Mean Corpuscular Hgb 32.3 pg (27.0-31.0); Mean Corpuscular Volume 92.8 fL (80.0-94.0); Mean Platelet Volume 11.7 fL (7.4-10.4); Platelet Count 314 10^3/uL (130-400); Red Blood Cell Count 2.63 10^6/uL (4.70-6.10); Red Cell Dist. Width 14.4 % (11.5-14.5); White Blood Cell Count 28.3 10^3/uL (4.8-10.8)
[2023-08-14 03:21] LABS: APTT 70.1 Sec (23.4-35.0)
[2023-08-14 03:27] LABS: Blood Urea Nitrogen 30 mg/dl (9-20); Calcium 8.5 mg/dl (8.4-10.2); Carbon Dioxide 27 mmol/L (22-30); Chloride 107 mmol/L (98-107); Estimated Creatinine Clearance 48 ml/min; Glucose 145 mg/dl (70-99); Magnesium 2.2 mg/dl (1.6-2.3); Phosphorus 2.7 mg/dl (2.5-4.5); Potassium 3.3 mmol/L (3.5-5.1); Sodium 137 mmol/L (135-145); eGFR 55.88
--- NOTE | 2023-08-14 03:45 | PTCARENOTE ---
PTT was 70.1. Heparin gtt rate changed to 1400 units/hr per protocol.
[2023-08-14] MEDS: KCL 100 IV (05:15)
[2023-08-14 06:23] LABS: Glucose - Point of Care 176 mg/dl (70-99)
--- NOTE | 2023-08-14 07:16 | W.PN.INTV ---
Today's Communication / Plan
Recommendations
Fever noted, repeat cultures/CT obtained
Continue BP and HR management per team
Confusion ongoing, avoid sedation
TPN ongoing, NGT in place
Assessment
-
78-year-old male with a PMHx of PAD s/p kissing iliac stents bilaterally, AAA, COPD, tobacco use disorder, CAD s/p CABG x3 and A-fib s/p multiple failed cardioversions who presents with elective bilateral femoral endarterectomy and vascular
intervention for AAA. s/p bilateral femoral cutdowns, femoral endarterectomies with patch angioplasty and then eventually retrograde balloon angioplasty with stenting of the left iliac artery and endovascular repair of his aortic aneurysm on
08/05/23. Patient is transferred postoperatively to the ICU and oil field worker service is consulted for additional management/recommendations.
Impression:
#Acute hypoxic respiratory failure s/p intubation on mechanical ventilation - likely combo of PNA and pulmonary edema, I suspect mainly the former though
s/p intubation 08/09/23
#Bilateral femoral artery stenosis s/p cutdown with endarterectomy with bovine patch angioplasty & left iliac artery stenting 08/05/23
#AAA s/p EVAR using physician modified aortic endograft 08/05/23
#Rectal bleeding/BRBPR due to ischemic colitis s/p flexible sigmoidoscopy with open left colectomy with takedown of splenic flexure and end-distal sigmoid colostomy 08/06/23
#Lactic acidosis due to ischemic colitis (likely as an unfortunate complication from the EVAR) - lactate normalized
#Leukocytosis
#Anemia - due to ischemic colitis as above
#A-fib with RVR s/p cardizem gtt and now amiodarone gtt
#Hx of COPD (moderate severity per spirometry from 2019)
#Alcohol use disorder c/b acute withdrawal
ICU delirium
Fever
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
Hyperlipidemia
ED
PMR
hypertension
CAD s/p s/p stents (1993 + 1994), CABG x3
history of skin cancer
tobacco use disorder, PAD
NSVT s/p ablation
history of alcohol abuse
history of COPD
A-fib (diagnosed in 2017)
history of diverticulosis
history of NSTEMI
Plan:
Likely with ICU delirium, has remained off IV sedation >24 hours
Stop phenobarb
Neuro and vascular checks per protocol also continue
RASS goal 0
Dilaudid PRN for pain
Can increase Zyprexa SL dosing, limited with no PO access
Acute hypoxic RF s/p intubation, had been on NRB
Extubated 08/11/23, doing well
Titrate FiO2 and PEEP to maintain SpO2 >88%
COPD history: resume home inhalers, stop nebs
Suspect acute HFpEF, proBNP 4920
CXR showing enlarged cardiac silhouette, last ECHO preserved function
Diurese as tolerated
Maintain MAP>70-90mmHg
Pt now off cardizem gtt and started on amiodarone; goal HR<110bpm
Continue IV lopressor 5mg q6hr
IV labetalol
Hep IV gtt
NPO post colon surgery, TPN continued
CRC following
NGT replaced for persistent vomiting
Continue Abx with Zosyn and complete 7 day course
Culture neg to date
Off abx/observing off
Fever noted, repeat cultures and CT obtained
Monitor hemoglobin with serial CBC
Transfuse if needed to maintain Hb>7g/dL, plt>50k
Monitor blood sugars with goal BG 140-180mg/dL
Insulin supplementation if needed
Post-operative management as per vascular surgery and colorectal surgery - operation notes reviewed and recs appreciated
DVT prophylaxis recommended: Hep IV, on Eliquis at home
Stress ulcer ppx
Diagnostic Data
CXR 08-10-2023: Bilateral pulmonary opacities are not significantly changed compared to the previous chest radiograph from 08/09/2023.
CXR 08-09-2023: Increased bilateral airspace and interstitial compared to the chest radiograph from 08/08/2023 suggestive of worsening pulmonary edema versus pneumonia.
CXR 08-08-2023:Interval development of ill-defined perihilar airspace opacities as well as ill-defined opacity within the right lung base. No significant effusions. Findings suspicious for pulmonary edema versus less likely multifocal pneumonia.
Abd XR 08-06-2023: Feeding tube placement as described above. Moderate fecal material in the colon. Stable postsurgical change of the abdomen.
ECHO 05/09/23: Normal biventricular size and systolic function without regional wall motion abnormality. Estimated LVEF 50-55%. Mild concentric left ventricular hypertrophy. No significant valve disease.
Compared to 01/15/23: no significant change.
Prior Spirometry: 12/2019: FEV1/FVC: 45, FEV1: 1.71L (58% predicted), FVC: 3.76L (93% predicted), ZZZ20-02%: 18%
-----
Critical Care time 35 mins -- The patient is admitted for acute critical illness for the treatment of vital organ failure and/or prevention of further life-threatening conditions. Total care includes time spent in review of history, physical exam,
medications, hemodynamic/ventilator parameters, laboratory data, imaging and discussion with house staff, pharmacy, respiratory therapy, parts inspector, and nursing.
Subjective Dataa
Subjective Data
Date of Service:
Date of Service: August 14, 2023
Chief Complaint: Butcher Assistant Follow Up
Subjective:
remains confused
fever noted, wbc increased
cultures resent/ct pending
Objective Data
Data Reviewed
Vital Signs / I&O / Oxygen:
Vital Signs
Temp Pulse Resp BP Pulse Ox
100.4 F H 117 15 167/101 89
08/14/23 04:46 08/14/23 06:08 08/14/23 06:00 08/14/23 06:08 08/13/23 22:07
Intake and Output
08/13/23 08/14/23 08/15/23
06:59 06:59 06:59
Intake Total 2297.6 / 2412.3 2448.5 / 2448.5
Output Total 2515 / 2615 2854 / 2854
Balance -217.4 / -202.7 -405.5 / -405.5
SaO2 [A/C] 97
SaO2 89
Nasal Cannula flow liters per 2
minute
Physical Exam
General: Comfortable and Chills (negative)
HEENT: Normocephalic and Anicteric
Cardiovascular: Irregular Rhythm (tachycardic) and Peripheral Edema (negative)
Respiratory: Wheeze (negative), Crackles (negative), Rhonchi (Bilaterally (R >L)) and Non-Labored Respirations
GI: Soft, Non Distended, Tender (ashlyn-umbilical region without peritoneal signs), NG Tube and Other (Colostomy in place with small amount of blood seen in bag; no clots seen)
Neurology: Awake, Alert, No Motor Deficits, Tremors (negative) and Other (confused, hallucinating, not oriented and not answering appropriately)
Skin: Warm, Dry and Other (toes are cool to touch bilaterally)
Labs/Micro/Reports
Lab Data
08/14/23 02:07
08/14/23 02:07
Laboratory Results
08/13/23 08/13/23 08/14/23
11:37 19:00 02:07
APTT 69.4 H 54.0 H 70.1 H
Microbiology
08/10/23 16:41 Blood/Venous Blood Culture - Preliminary
No Growth in 72 hours- Final report to follow
08/11/23 13:18 Blood/Venous Blood Culture - Preliminary
No Growth in 48 hours- Final report to follow
08/11/23 10:27 Endotracheal Respiratory Culture - Final
NO GROWTH
08/11/23 10:27 Endotracheal Gram Stain - Final
08/10/23 16:41 Urine Legionella Urinary Antigen - Final
Negative for Legionella pneumophila Serogroup 1 antigen.
A negative result does not rule out the possiblity of
Legionella infection due to other serogroups or species of
Legionella. Clinical correlation is recommended.
08/10/23 16:41 Urine Streptococcus pneumoniae Antigen (M - Final
Negative for Streptococcus pneumoniae antigen.
A negative result does not exclude infection with
Streptococcus pneumoniae. Clinical correlation is
recommended.
--- NOTE | 2023-08-14 07:36 | W.PN.VS ---
Today's Communication / Plan
-
See plan below for today 08/14/2023.
Assessment/Plan
-
Plan/ POD# 9
� Given elevated white blood cell count, fever though he does not appear toxic, would favor workup for septic source. Would scan abdomen to rule out any intra-abdominal collection. Discussed with colorectal surgery Dr. Padilla. He agrees. Will
scan with p.o./IV/rectal contrast. Will include CT of the chest given pulmonary concerns and potential source. I reviewed all blood cultures up till now are negative. Endovascular stent graft infection less likely (especially this early, in
addition its endovascular not open surgical so infection risk may be lower, and in addition blood cultures all negative).
-Repeat urine cultures as well. Potential discontinue Balbuena later today. (Being used for I's/O's monitoring especially given NG tube, TPN).
-Blood cultures thus far negative and therefore central line related infection less likely, but if no source on abdominal CT, may need to remove the line (would consider PICC in that setting).
-
Total Time Spent with Patient (in minutes): 15
Subjective Data
-
Date of Service: August 14, 2023
No major events noted overnight.
Objective Data
-
Vital Signs
Temp Pulse Resp BP Pulse Ox
100.4 F H 117 15 167/101 89
08/14/23 04:46 08/14/23 06:08 08/14/23 06:00 08/14/23 06:08 08/13/23 22:07
Intake and Output
08/13/23 08/14/23 08/15/23
06:59 06:59 06:59
Intake Total 2297.6 / 2412.3 2448.5 / 2448.5
Output Total 2515 / 2615 2854 / 2854
Balance -217.4 / -202.7 -405.5 / -405.5
Intake:
IV fluids (Total) 600.6 / 652.3 788.5 / 788.5
Heparin 132 / 142 296 / 296
amiodarone 384.1 / 400.8 417.5 / 417.5
kcl 67.5 / 92.5 75 / 75
precedex
IV piggybacks
TPN/PPN 1607 / 1670 1575 / 1575
Amount instilled into GI Tube ( 90 / 60 / 60
Total)
[place] Sump 90 / 90 60 / 60
Output:
Liquid stool amount 275 / 275
Colostomy 275 / 275
Drain Output (Total) 110 / 110 120 / 120
Right Lower Abdomen Damian- 110 / 110 120 / 120
Tello
Gastrointestinal tube output ( 450 / 450 900 / 900
Total)
[place] Sump 450 / 450 900 / 900
Urine, Balbuena 1680 / 1780 1834 / 1834
Lab Results
08/14/23 02:07
08/14/23 02:07
Calcium 8.5 mg/dl (8.4-10.2) 08/14/23 02:07
Phosphorus 2.7 mg/dl (2.5-4.5) 08/14/23 02:07
Magnesium 2.2 mg/dl (1.6-2.3) 08/14/23 02:07
Total Bilirubin 0.7 mg/dl (0.2-1.3) 08/11/23 13:18
Direct Bilirubin 0.5 mg/dl (0.0-0.4) H 08/06/23 03:27
AST 45 U/L (17-59) 08/11/23 13:18
ALT 48 U/L (0-50) 08/11/23 13:18
Alkaline Phosphatase 116 U/L (38-126) 08/11/23 13:18
Total Protein 5.0 g/dl (6.3-8.2) L 08/11/23 13:18
Albumin 2.3 g/dl (3.5-5.0) L 08/11/23 13:18
Physical Exam
-
Tmax 102. Currently 100.8.
Awake. Still slightly confused but improved.
NG tube output 500 cc overnight.
Abdomen is soft, nondistended, nontender currently. Incision clean dry and intact. Packing in the inferior portion with no purulent drainage. No erythema surrounding incision.
PRAKASH is scant drainage currently mostly serous/serosanguineous. Old fibrinous debris but no purulence.
Groins are flat bilaterally. [place] dressings intact. Clean dry and intact. No hematoma. No surrounding erythema.
Feet are warm and well-perfused with good dopplerable signals bilaterally.
White blood cell count increased to 28.3. Hemoglobin stable 8.5. Creatinine 1.3.
--- NOTE | 2023-08-14 08:00 | PTCARENOTE ---
Received pt @ change of shift. Pt. awake, oriented to self/situation; required reorientation to place/time. Denies pain. Confused, calling out @ x's requiring frequent redirection. MERRILL. B/L soft limb/mitts/rails in place- see flow sheet. Afib on
montior. Trace anasarca. +doppler pedal pulses. SpO2 95% on RA. Auscultated coarse breath sounds throughout. Occasional productive cough w white sputum. R PRAKASH w small amt of ser/sang drainage. L colostomy w dark brown/liq stool. R nare NGT to LIS w
mod-lg amt of green drainage. Mustafa in place w yellow/sediment urine. B/L groin STEPHEN dressings c/d/i. R TL IJ w TPN, K+ rider, heparin gtt- see flow sheet. R DL PICC w KVO and amio gtt- see flow sheet. Assisted x2 w repositioning in bed per
protocol. Bed alarm active. Safe environment maintained.
[2023-08-14] MEDS: SPIRIVA RESPIMAT 2.5 MCG 2 PUFF INH (08:17)
--- NOTE | 2023-08-14 08:31 | W.PN.CD ---
Today's Communication / Plan
-
continue IV heparin, amiodarone, labetalol while NPO
infectious work up per primary team
Impression / Plan
-
Complex vascular surgery on 08/06/2023 for AAA/iliac disease/PAD
Ischemic colitis, postop vascular surgery
- Colostomy, flexible sigmoidoscopy and colectomy with a colostomy on 08/06/[address] Padilla
Fever, elevated WBC: per primary team
Perm AFib
- Rate OK for acute illness
- continue IV heparin while NPO => then back to Eliquis
- continue IV Amio for rate control while NPO => then back to his PO rate control regimen
HTN
-continue IV labetalol while NPO
NSVT, normal LVEF, BB
Abnormal troponin, peak 0.043, likely nonischemic myocardial injury in the setting of acute illness
- trop peak in setting of critical illness 0.043
CAD, PCI with stenting 1993 & 1994, CABG 2016, stable without CP
Prior CVAs
HLD, continue rosuvastatin 40mg when bowel function returns
Current smoker, cessation recommended
CCT 31 minutes
Subjective:
He denies CP, SOB, palps.
Echo 05/2023: LVEF 50-55%
Physical Exam
Vital Signs/Labs
Vital Signs
Temp Pulse Resp BP Pulse Ox
100.4 F H 117 16 167/101 97
08/14/23 04:46 08/14/23 08:18 08/14/23 08:18 08/14/23 06:08 08/14/23 08:18
08/13/23 08/14/23 08/15/23
06:59 06:59 06:59
Actual Weight 77.9 kg 78 kg
08/14/23 02:07
08/14/23 02:07
PT 15.4 Sec (11.4-14.6) H 08/06/23 03:27
INR 1.21 08/06/23 03:27
APTT 70.1 Sec (23.4-35.0) H 08/14/23 02:07
Magnesium 2.2 mg/dl (1.6-2.3) 08/14/23 02:07
Triglycerides 208 mg/dl (10-149) H 08/11/23 13:18
08/11/23
04:15
Lhd-C-Egandoojhpc Pept 4920
Physical Exam
Constitutional: No acute distress
EENT: Moist mucous membranes
Cardiovascular: Pedal edema is absent, JVD pressure is normal, Systolic murmur absent and Rhythm/rate is irregular
Respiratory: Respiratory effort normal and Lungs clear to auscul.
Neuro/Psych: Alert
Data Reviewed
-
Date of Service: August 14, 2023
EKG: Other (Tele: A fib 110-110s)
Labs: Labs Reviewed by me
[2023-08-14] MEDS: OMNIPAQUE 50 ML PO (08:32)
[2023-08-14] MEDS: ASPIRIN 300 MG RECTAL (08:45)
[2023-08-14] MEDS: CYANOCOBALAMIN 100 MCG IM (08:45)
[2023-08-14] MEDS: PROTONIX IV 40 MG IV (08:46)
[2023-08-14] MEDS: NSS (PRESERVATIVE FREE) 10 ML IV (08:46)
--- NOTE | 2023-08-14 08:54 | W.PN.UPDATE ---
Update Note
Progress Note Update
CDI:
Physician Documentation Request
Admit Date: 08/05/23 05:57
Clinical Indicators:�
Pt admitted with Bilateral femoral artery stenosis s/p cutdown and stenting/EVAR on 08/05
Developed ischemic colitis/rectal bleeding��flexible sigmoidoscopy, Grissom's procedure done 08/06
Progress note 08/06, '��I suspect he has ischemic colitis, most likely in the LUKAS distribution.� Since he� is having fever, leukocytosis and lactic acidosis...'
Pulmonary note 08/09 , '�Acute respiratory failure with hypoxemia on mechanical ventilation - likely combo of PNA and pulmonary edema, I suspect mainly the former though..'
Pt currently on Zosyn/Vital signs as below
� 08/05/2405:45 08/05/2415:45 08/05/2417:45
Pulse 113 � 122
Resp Rate � 23 �
� 08/05/2420:00 08/06/2401:00 08/06/2402:23
Temp � � 101.0 F H
Pulse 129 126 �
� 08/06/2401:45 :00 08/09/2402:08
Temp � � 100.7 F H
Pulse � 128 �
Resp Rate 32 � �
� 08/09/2406:28 08/09/2418:45 08/10/2419:34
Temp 101 F H 101.3 F H 101 F H
� 08/05/23 08/06/23 08/06/23
� 17:04 03:27 16:36
WBC �23.5 H �25.3 H �
Band Neutrophils � � �17 H
� 08/06/23 08/07/23 08/08/23
� 16:36 03:43 04:06
WBC �22.7 H �23.2 H �19.1 H
� 08/09/23 08/10/23
� 03:31 03:07
WBC �19.4 H �17.8 H
Please clarify which of the following most accurately describes the status of the patient's infection:
Suspected Sepsis
- Systemic manifestations of infection, with 2 or more SIRS criteria which include:
- Fever >100.4 degrees F or hypothermia < 96.8 degrees F
- Leukocytosis - WBC > 12,000 or leukopenia - WBC < 4,000 or > 10% bands
- Tachycardia > 90 beats per minute
- Tachypnea - RR > 20 breaths per minute or PaCO2 , 32mmHg
Source: [employer]ck Manual 2013
--- NOTE | 2023-08-14 09:22 | W.PN.CRS1 ---
Today's Communication / Plan
-
Due to the fever and leukocytosis, the plan is for a CT scan of the abdomen and pelvis with contrast. I reviewed with the technical testing engineer regarding the rectal contrast.
Continue NG tube and TPN for now.
Assessment/Plan
-
POD#8 s/p open left colectomy with takedown of splenic flexure and end distal sigmoid colostomy for ischemic colitis
Subjective Data
Procedure
08/06/2023- open left colectomy with takedown of splenic flexure and end distal sigmoid colostomy, ischemic colitis
Subjective Data
Date of Service: August 14, 2023
Awake and alert but seems agitated. He denies any abdominal pain.
Objective Data
-
Vital Signs
Temp Pulse Resp BP Pulse Ox
100.4 F H 117 16 167/101 97
08/14/23 04:46 08/14/23 08:18 08/14/23 08:18 08/14/23 06:08 08/14/23 08:18
Intake & Output
08/13/23 08/14/23 08/15/23
06:59 06:59 06:59
Intake Total 2297.6 / 2412.3 2448.5 / 2448.5
Output Total 2515 / 2615 2854 / 2854
Balance -217.4 / -202.7 -405.5 / -405.5
Intake:
IV fluids (Total) 600.6 / 652.3 788.5 / 788.5
Heparin 132 / 142 296 / 296
amiodarone 384.1 / 400.8 417.5 / 417.5
kcl 67.5 / 92.5 75 / 75
precedex
IV piggybacks /
TPN/PPN 1607 / 1670 1575 / 1575
Amount instilled into GI Tube ( 90 / 90 60 / 60
Total)
[place] Sump 90 / 90 60 / 60
Output:
Liquid stool amount 275 / 275
Colostomy 275 / 275
Drain Output (Total) 110 / 110 120 / 120
Right Lower Abdomen Damian- 110 / 110 120 / 120
Tello
Gastrointestinal tube output ( 450 / 450 900 / 900
Total)
[place] Sump 450 / 450 900 / 900
Urine, Balbu[place] 1680 / 1780 1834 / 1834
Lab Results
08/14/23 02:07
08/14/23 02:07
Physical Exam
-
General: No Acute Distress
Abdomen: Soft, Non Distended, Non Tender and Other (The ostomy is viable and the PRAKASH output serosanguineous)
Extremities: No Calf Tenderness
[2023-08-14] MEDS: CORDARONE 518 MG IV (10:07)
[2023-08-14 10:14] LABS: Urine Albumin 1+ (Neg - Trace); Urine Bilirubin Negative (Negative); Urine Character Clear (Clear); Urine Color Yellow; Urine Glucose 1+ (Negative); Urine Ketone Negative (Negative); Urine Leukocyte Trace (Negative); Urine Nitrite Negative (Negative); Urine Occult Blood 4+ (Negative); Urine Specific Gravity 1.015 (<1.030); Urine Urobilinogen Negative (Neg - 1+)
[2023-08-14 10:18] LABS: APTT 83.4 Sec (23.4-35.0)
[2023-08-14 10:32] LABS: Urine White Cell 21-25 /HPF (0-5)
[2023-08-14 10:33] LABS: Urine Bacteria Moderate (Negative); Urine Mucus Few
--- NOTE | 2023-08-14 11:22 | W.PN.UPDATE ---
Addendum entered and electronically signed by Zeb Rivera MD 08/14/23 11:30:
Updated patient's Tabitha via phone.
Original Note:
Update Note
Progress Note Update
CT images reviewed. No clear evidence of intra-abdominal abscess. (rectal contrast not tolerated, however, per report). Left renal artery/stent appears occluded. Non-opacification of left kidney. WBC/fever may be explained by infarcting kidney.
R renal stent patent. Continues with good UOP. Will continue rule out other causes of WBC/fever as well (blood and urine cultures pending).
[2023-08-14] MEDS: TYLENOL/FEVERALL 650 MG RECTAL ×2 (11:56→18:27)
[2023-08-14 11:57] LABS: Glucose - Point of Care 172 mg/dl (70-99)
--- NOTE | 2023-08-14 12:00 | PTCARENOTE ---
Blood cultures obtained from central lines (one from R IJ TL and another from R PICC) per vascular; urine cx also obtained and sent to lab. Prior to PO contrast admin via NGT, dilution solution amount confirmed w Dr. Padilla. Admin 480mL of diluted
contrast @ 0830 and NGT clamped. Rest of diluted contrast admin @ 0900 and NGT remained clamped until CT completion. Pt. taken down to CT and back to rm [id number] w/out complication. Complete CHG bath/linen change s/p arrival back to rm. Pt.
repositioned per protocol. Restraints remain in place-see flow sheet. Cont w heparin/amio/TPN via R TL. Bed alarm active. Safe environment maintained.
[2023-08-14] MEDS: HEPARIN 25000 UNITS/250 ML IV (13:54)
--- NOTE | 2023-08-14 14:48 | WOUNDNOTE ---
[facility] RN NOTE: Reviewed chart and spoke to RNMili who explained patient was agitated and in restraints. Met with patient who was combative, confused and hallucinating. Patient agreed to have this financial writer check pouch, which was intact. No leaking
noted. Will visit patient tomorrow and attempt pouch change. Also spoke to today who said she could not make it in today for ostomy teaching. Plan is for SNF. RN Mili given update.
[2023-08-14] MEDS: FOLVITE 50.2000000000000028 MG IV (15:00)
--- NOTE | 2023-08-14 15:03 | CON.MD ---
Consultation - Medical
-
patient seen chart reviewed. patient is a 78 year old male who is s/p surgery for sacular aortic aneurysm. there have been several post operative complications including colonic ischemia necessitating colectomy and hopefully temporary colostomy.
patient has suffered other complications including acute hypoxic respiratory failure. a high white count (28.3) and fever noted which could be secondary to infarcting left kidney and this is currently being addressed. the patient is noted to be in
a state of delirium. he reportedly does have a hx of etoh use disorder but he is at th is point ten days out from admission and had already been detoxed with phenobarbital . he remains today when seen in a confused delirious state. he is in
restraints given the risk of removing iv, dotson etc. he was clearly hallucinating and talking to himself when i came in. 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
past psych hx not known and patient is a poor historian at present there is a reported hx of etoh use disorder
past medical hx patient has hx of severe cad and has a long list of vascular disorders and surgeries which will not be delineated here. currently postop after endovascular aneurysm repair and complications as above patient also w hx htn hld copd
s/p cabf a fib skin ca nstemi chart records allergy to benzos hx cva cat brain shows atrophy qtc 478
substance abuse etoh
fh non contributory
social former smoker lives w
mse patient mumbling to himself. appears to be hallucinating. very irritable and easily agitated. paranoid. believes he is being held prisoner unable to ask questions without provoking agitation
dx delirium secondary to medical illness by hx etoh use d.o
recommendations: patient is obviously quite ill medically and there are any number of reasons for a delirium including illness, post op/post anesthesia/ hospitalization in icu/ brain fragility given long hx etohism and evidence of atrophy on cat
scan in addition to hx cva. have ordered risperdal one mg bid and a prn of. o.5 mg q 6h. patient is allergic allegedly to bzp. if he does not settle with risperdal and continues w agitation consider depakote which can be given IV. will follow
--- NOTE | 2023-08-14 15:12 | PHA.VAN.IN ---
Assessment
- Assessment
Renal Function: Appears elevated from baseline (BASELINE SCR 0.7 MG/DL)
Maximum Temperature: 101.1 F
Concomitant Antimicrobials: PIPERCILLIN/TAZOBACTAM
Plan
- Plan
Initial / Loading Dose: VANCO 2000MG X1
Monitoring: RANDOM 08/14 @0600
Pharmacokinetics Vancomycin I
- -
Patient Age: 78
Patient Sex: Male
Vancomycin Day #: 1
Indication: Other
Requesting Provider: ALYSON GUZMAN
Height / Weight:
Height 5 ft 10 in
Actual Weight 78 kg
Pertinent Past Medical History: COPD
- Vital Signs / Lab Results
Temp Pulse Resp BP Pulse Ox
101.1 F H 130 19 140/123 97
08/14/23 11:32 08/14/23 15:00 08/14/23 15:00 08/14/23 13:00 08/14/23 08:18
Lab Results - Hematology
08/12/23 08/13/23 08/14/23
17:09 03:00 02:07
WBC 17.4 H 16.5 H 28.3 H
Lab Results - Chemistry
08/12/23 08/13/23 08/14/23
04:37 03:00 02:07
BUN 21 H 25 H 30 H
Creatinine 0.6 L 1.1 1.3
Estimated Creat Clear 103 56 48
Lab Results - Urine
08/14/23
09:55
Urine Nitrite (Reflex) Negative
Leukocyte Esterase Rfl Trace A
Urine WBC (Reflex) 21-25 A
Urine Bacteria (Reflex) Moderate A
Microbiology Results
08/11/23 13:18 Blood Culture - Preliminary
Blood/Venous No Growth in 72 hours- Final report to follow
08/10/23 16:41 Blood Culture - Preliminary
Blood/Venous No Growth in 72 hours- Final report to follow
08/11/23 10:27 Respiratory Culture - Final
Endotracheal NO GROWTH
Gram Stain - Final
--- NOTE | 2023-08-14 15:15 | CM ---
CM following re: discharge planning.
Discussed in rounds, reviewed pt's chart, met with pt. Per Rounds meeting, TPN ongoing, NGT in place, continue supportive care.
Awaiting for determination from [facility] for a short term rehab when medically stable.
D/C plan: [facility] when pt is medically stable.
CM will follow with discharge plan updates as hospitalization progresses
[2023-08-14] MEDS: VANCOCIN 540 MG IV (16:12)
[2023-08-14] MEDS: ZOSYN 50 IV ×2 (16:19→22:13)
[2023-08-14] MEDS: RISPERDAL M-TAB (ORALLY DISINTEGRATING) 0.5 MG PO (17:45)
[2023-08-14 17:51] LABS: APTT 103.6 Sec (23.4-35.0)
[2023-08-14 17:56] LABS: Glucose - Point of Care 185 mg/dl (70-99)
--- NOTE | 2023-08-14 18:05 | PTCARENOTE ---
pt w continued confusion/hallucinations/restlessness. Psych MD aware of pt. mentation. Further orders received- see MAR. Awaiting effect of prn. Pt. frequently reoriented/redirected. Assisted w repositioning in bed. Remains in restraints- see
flow sheet. Bed alarm active.
[2023-08-14] MEDS: RISPERDAL M-TAB (ORALLY DISINTEGRATING) 1 MG PO (19:39)
[2023-08-14] MEDS: DILAUDID 1 MG IV (19:41)
[2023-08-14] MEDS: Parenteral Nutrition, Central 1510 IV (20:55)
--- NOTE | 2023-08-14 21:00 | PTCARENOTE ---
Resumed care of pt this evening. Pt remains on amio, heparin, and TPN gtts via central lines. Surgical dressings intact. Pt's mentation remains confused, forgetful, and restless. Restraints in place per order.
[2023-08-14 23:51] LABS: Glucose - Point of Care 176 mg/dl (70-99)
[2023-08-15] VITALS (46 sets, daily range): BP systolic 114–169; BP diastolic 63–117; PULSE 100; O2SAT 98; BMI 24.4
--- NOTE | 2023-08-15 | PTCARENOTE ---
Pt's temp elevated, T-Max 102.3F core. IV tylenol administered by this RN.
[2023-08-15] MEDS: NOVOLOG FLEXPEN-LOW RESISTANCE 1 UNITS SC ×4 (00:05→23:28)
[2023-08-15 04:28] LABS: Hemoglobin 7.4 g/dL (13.0-18.0); Mean Corp Hgb Conc. 35.2 g/dL (33.0-37.0); Mean Corpuscular Hgb 32.3 pg (27.0-31.0); Mean Corpuscular Volume 91.7 fL (80.0-94.0); Mean Platelet Volume 11.1 fL (7.4-10.4); Platelet Count 320 10^3/uL (130-400); Red Blood Cell Count 2.29 10^6/uL (4.70-6.10); Red Cell Dist. Width 14.2 % (11.5-14.5); White Blood Cell Count 37.6 10^3/uL (4.8-10.8)
[2023-08-15] MEDS: ZOSYN 50 IV (04:28)
[2023-08-15 04:44] LABS: APTT 114.7 Sec (23.4-35.0)
[2023-08-15 05:19] LABS: ALT (SGPT) 86 U/L (0-50); AST (SGOT) 136 U/L (17-59); Albumin 2.3 g/dl (3.5-5.0); Alkaline Phosphatase 144 U/L (38-126); Blood Urea Nitrogen 33 mg/dl (9-20); Calcium 8.5 mg/dl (8.4-10.2); Carbon Dioxide 24 mmol/L (22-30); Chloride 109 mmol/L (98-107); Estimated Creatinine Clearance 41 ml/min; Glucose 150 mg/dl (70-99); Magnesium 2.3 mg/dl (1.6-2.3); Potassium 3.5 mmol/L (3.5-5.1); Sodium 137 mmol/L (135-145); Total Bilirubin 0.5 mg/dl (0.2-1.3); Total Protein 5.2 g/dl (6.3-8.2); eGFR 47.06
[2023-08-15 05:24] LABS: Vancomycin Random 15.7 ug/ml
[2023-08-15] MEDS: TRANDATE 10 MG IV ×2 (05:34→11:55)
--- NOTE | 2023-08-15 05:45 | PTCARENOTE ---
Upon reassessment pt's temp was 100.3F core. Pt resting comfortably at this time.
[2023-08-15] MEDS: KCL 160 MEQ IV (07:12)
[2023-08-15] MEDS: HEPARIN 25000 UNITS/250 ML IV (07:13)
--- NOTE | 2023-08-15 07:14 | W.PN.INTV ---
Today's Communication / Plan
Recommendations
Ok for meds via NGT, continue TPN
Transition cardiac meds to PO
Psych following for confusion
Abx change to CFP/Flgyl
NTAALIE, renal consult
PT/OT
Assessment
-
78-year-old male with a PMHx of PAD s/p kissing iliac stents bilaterally, AAA, COPD, tobacco use disorder, CAD s/p CABG x3 and A-fib s/p multiple failed cardioversions who presents with elective bilateral femoral endarterectomy and vascular
intervention for AAA. s/p bilateral femoral cutdowns, femoral endarterectomies with patch angioplasty and then eventually retrograde balloon angioplasty with stenting of the left iliac artery and endovascular repair of his aortic aneurysm on
08/05/23. Patient is transferred postoperatively to the ICU and stamp clerk service is consulted for additional management/recommendations.
Impression:
#Acute hypoxic respiratory failure s/p intubation on mechanical ventilation - likely combo of PNA and pulmonary edema, I suspect mainly the former though
s/p intubation 08/09/23
#Bilateral femoral artery stenosis s/p cutdown with endarterectomy with bovine patch angioplasty & left iliac artery stenting 08/05/23
#AAA s/p EVAR using physician modified aortic endograft 08/05/23
#Rectal bleeding/BRBPR due to ischemic colitis s/p flexible sigmoidoscopy with open left colectomy with takedown of splenic flexure and end-distal sigmoid colostomy 08/06/23
#Lactic acidosis due to ischemic colitis (likely as an unfortunate complication from the EVAR) - lactate normalized
#Leukocytosis
#Anemia - due to ischemic colitis as above
#A-fib with RVR s/p cardizem gtt and now amiodarone gtt
#Hx of COPD (moderate severity per spirometry from 2019)
#Alcohol use disorder c/b acute withdrawal
ICU delirium
Fever
NATALIE with acute renal infarcts
Chronic medical conditions SURGICAL SERVICES ASSISTANT:
Hyperlipidemia
ED
PMR
hypertension
CAD s/p s/p stents (1993 + 1994), CABG x3
history of skin cancer
tobacco use disorder, PAD
NSVT s/p ablation
history of alcohol abuse
history of COPD
A-fib (diagnosed in 2016)
history of diverticulosis
history of NSTEMI
Plan:
Likely with ICU delirium, has remained off IV sedation >24 hours
Stop phenobarb
Neuro and vascular checks per protocol also continue
RASS goal 0
Dilaudid PRN for pain
Psych following
Acute hypoxic RF s/p intubation, had been on NRB
Extubated 08/11/23, doing well
Titrate FiO2 and PEEP to maintain SpO2 >88%
COPD history: resume home inhalers, stop nebs
Suspect acute HFpEF, proBNP 4920
CXR showing enlarged cardiac silhouette, last ECHO preserved function
Diurese as tolerated
Maintain MAP>70-90mmHg
Pt now off cardizem gtt and started on amiodarone; goal HR<110bpm
Continue IV lopressor 5mg q6hr
IV labetalol
Hep IV gtt
NPO post colon surgery, TPN continued
Ok for meds via tube
CRC following
NGT replaced for persistent vomiting
Continue Abx with Zosyn and completed 7 day course
Culture neg to date
Fever again will change to CFP/Flagyl
Fever noted, repeat cultures and CT obtained--reviewed
Monitor hemoglobin with serial CBC
Transfuse if needed to maintain Hb>7g/dL, plt>50k
Monitor blood sugars with goal BG 140-180mg/dL
Insulin supplementation if needed
Post-operative management as per vascular surgery and colorectal surgery - operation notes reviewed and recs appreciated
DVT prophylaxis recommended: Hep IV, on Eliquis at home
Stress ulcer ppx
Diagnostic Data
CXR 08-10-2023: Bilateral pulmonary opacities are not significantly changed compared to the previous chest radiograph from 08/09/2023.
CXR 08-09-2023: Increased bilateral airspace and interstitial compared to the chest radiograph from 08/08/2023 suggestive of worsening pulmonary edema versus pneumonia.
CXR 08-08-2023:Interval development of ill-defined perihilar airspace opacities as well as ill-defined opacity within the right lung base. No significant effusions. Findings suspicious for pulmonary edema versus less likely multifocal pneumonia.
Abd XR 08-06-2023: Feeding tube placement as described above. Moderate fecal material in the colon. Stable postsurgical change of the abdomen.
ECHO 05/09/23: Normal biventricular size and systolic function without regional wall motion abnormality. Estimated LVEF 50-55%. Mild concentric left ventricular hypertrophy. No significant valve disease.
Compared to 01/15/23: no significant change.
Prior Spirometry: 12/2019: FEV1/FVC: 45, FEV1: 1.71L (58% predicted), FVC: 3.76L (93% predicted), SRM89-94%: 18%
-----
Critical Care time 35 mins -- The patient is admitted for acute critical illness for the treatment of vital organ failure and/or prevention of further life-threatening conditions. Total care includes time spent in review of history, physical exam,
medications, hemodynamic/ventilator parameters, laboratory data, imaging and discussion with house staff, pharmacy, respiratory therapy, english composition teacher, and nursing.
Subjective Dataa
Subjective Data
Date of Service:
Date of Service: August 15, 2023
Chief Complaint: Rug Sizer Follow Up
Subjective:
CT results noted, remains on IV hep
TPN ongoing
Fever with reculture neg
ongoing confusion
Objective Data
Data Reviewed
Vital Signs / I&O / Oxygen:
Vital Signs
Temp Pulse Resp BP Pulse Ox
100.3 F 103 19 149/87 94
08/15/23 05:52 08/15/23 05:34 08/15/23 05:26 08/15/23 05:34 08/14/23 21:00
Intake and Output
08/14/23 08/15/23 08/16/23
06:59 06:59 06:59
Intake Total 2448.5 / 2567.2 3987.1 / 3987.1
Output Total 2854 / 2904 2797 / 2797
Balance -405.5 / -336.8 1190.1 / 1190.1
SaO2 [A/C] 97
SaO2 94
Nasal Cannula flow liters per 2
minute
Physical Exam
General: Comfortable and Chills (negative)
HEENT: Normocephalic and Anicteric
Cardiovascular: Irregular Rhythm (tachycardic) and Peripheral Edema (negative)
Respiratory: Wheeze (negative), Crackles (negative), Rhonchi (Bilaterally (R >L)) and Non-Labored Respirations
GI: Soft, Non Distended, Tender (ashlyn-umbilical region without peritoneal signs), NG Tube and Other (Colostomy in place with small amount of blood seen in bag; no clots seen)
Neurology: Awake, Alert, No Motor Deficits, Tremors (negative) and Other (confused, hallucinating)
Skin: Warm, Dry and Other (toes are cool to touch bilaterally)
Labs/Micro/Reports
Lab Data
08/15/23 04:15
08/15/23 04:15
Laboratory Results
08/14/23 08/14/23 08/15/23
09:54 17:33 04:15
APTT 83.4 H 103.6 H 114.7 H
Microbiology
08/10/23 16:41 Blood/Venous Blood Culture - Preliminary
No Growth in 4 days- Final report to follow
08/11/23 13:18 Blood/Venous Blood Culture - Preliminary
No Growth in 72 hours- Final report to follow
08/11/23 10:27 Endotracheal Respiratory Culture - Final
NO GROWTH
08/11/23 10:27 Endotracheal Gram Stain - Final
[2023-08-15] MEDS: SPIRIVA RESPIMAT 2.5 MCG 2 PUFF INH (07:22)
--- NOTE | 2023-08-15 08:02 | W.PN.VS ---
Addendum entered and electronically signed by Linwood Balbuena III, MD 08/15/23 10:45:
This patient was seen and examined with BEBA Garcia. I agree with the history and physical exam as well as the assessment and plan. I have the following additions:
CT scan reviewed. No evidence of intra-abdominal collection/abscess
Left renal stent/renal artery thrombosed
SMA and right renal artery are patent
No endoleak identified
Patient is comfortable this morning
Alert and oriented but agitated
NG tube in place but low output overall
Abdominal exam benign, soft and flat
Groins clean and dry bilaterally
Extremities warm, bilateral Doppler signals intact
Persistent leukocytosis, climbing
Febrile with no clear source as of yet
Send C. difficile
Follow-up on cultures
TPN
Perhaps remove NG tube today if okay with colorectal
Appreciate psych input
Keep in ICU
Heparin drip with therapeutic PTT goal
Signed:
Linwood Balbuena III, MD
[facility] Surgery
[phone] (cell)
Original Note:
Today's Communication / Plan
-
Patient seen and examined at bedside with Dr. Linwood Balbuena III, will plan reviewed with attending
Assessment/Plan
-
Plan/ POD# 10
Hemoglobin 7.4 today, will treat with 2 units packed red blood cell
Given inconclusive source for fevers and leukocytosis we will also send C. difficile sample
Continue lower extremity neurovascular checks.
Continue n.p.o./NG tube per colorectal surgery.
PRAKASH per colorectal surgery
TPN
Continue to encourage incentive spirometer
Heparin gtt for permanent a-fib, will transition to PO eliquis when tolerating diet
Appreciate all consultants
Subjective Data
-
Date of Service: August 15, 2023
Patient seen and examined bedside. Denies nausea, vomiting, fever, chills, and abdominal pain. Reports desire to eat. Oriented to self and place; does require reorientation to circumstance, intermittently agitated.
Objective Data
-
Vital Signs
Temp Pulse Resp BP Pulse Ox
100.3 F 95 16 133/82 95
08/15/23 05:52 08/15/23 07:23 08/15/23 07:23 08/15/23 06:00 08/15/23 07:23
Intake and Output
08/14/23 08/15/23 08/16/23
06:59 06:59 06:59
Intake Total 2448.5 / 2567.2 4080.8 / 4080.8
Output Total 2854 / 2904 2872 / 2872
Balance -405.5 / -336.8 1208.8 / 1208.8
Intake:
IV fluids (Total) 788.5 / 819.2 736.8 / 736.8
Heparin 296 / 310 336 / 336
amiodarone 417.5 / 434.2 400.8 / 400.8
kcl 75 / 75
IV piggybacks 25 / 815 / 815
TPN/PPN 1575 / 1638 1449 / 1449
Amount instilled into GI Tube ( 60 60 1080 / 1080
Total)
Weber Sump 60 / 60 1080 / 1080
Output:
Liquid stool amount 200 / 200
Colostomy 200 / 200
Drain Output (Total) 120 / 120 50 / 50
Right Lower Abdomen Damian- 120 / 120 50 / 50
Tello
Gastrointestinal tube output ( 900 / 900 950 / 950
Total)
Weber Sump 900 / 900 950 / 950
Urine, Balbuena 183 / 1883 1672 / 1672
Lab Results
08/15/23 04:15
08/15/23 04:15
Calcium 8.5 mg/dl (8.4-10.2) 08/15/23 04:15
Phosphorus 2.7 mg/dl (2.5-4.5) 08/14/23 02:07
Magnesium 2.3 mg/dl (1.6-2.3) 08/15/23 04:15
Total Bilirubin 0.5 mg/dl (0.2-1.3) 08/15/23 04:15
Direct Bilirubin 0.5 mg/dl (0.0-0.4) H 08/06/23 03:27
AST 136 U/L (17-59) H 08/15/23 04:15
ALT 86 U/L (0-50) H 08/15/23 04:15
Alkaline Phosphatase 144 U/L (38-126) H 08/15/23 04:15
Total Protein 5.2 g/dl (6.3-8.2) L 08/15/23 04:15
Albumin 2.3 g/dl (3.5-5.0) L 08/15/23 04:15
Physical Exam
-
Tmax 102.3
Awake, remains slightly confused but easily re-oriented, oriented to self and place; remains confused regarding recent events and intermittently agitated
No tachypnea
A-fib on monitor
NGT with bilious output, to suction
Abdomen is soft, nondistended, no obvious tenderness. Stoma with air stool output, midline incision CDI, renny well approximated, packing in the inferior portion with no purulent drainage. No erythema surrounding incision.
Groins are flat bilaterally. STEPHEN dressings CDI, No hematoma. No surrounding erythema.
Feet warm with dopplerable DP signals BL
[2023-08-15] MEDS: ASPIRIN 300 MG RECTAL (08:19)
[2023-08-15] MEDS: CYANOCOBALAMIN 100 MCG IM (08:19)
[2023-08-15] MEDS: PROTONIX IV 40 MG IV (08:31)
[2023-08-15] MEDS: RISPERDAL M-TAB (ORALLY DISINTEGRATING) 1 MG PO (08:39)
[2023-08-15] MEDS: NSS (PRESERVATIVE FREE) 10 ML IV (08:39)
[2023-08-15] MEDS: FLUSH (NSS) 1 FLUSH IV (08:40)
--- NOTE | 2023-08-15 09:00 | PTCARENOTE ---
Rec'd pt at 0730 resting in bed awake but restless with soft wrist restraints and mitts in place which he tend to pull at. Oriented to person but not really anything else. Thought he was at home. Got instantly irritated when touched this morning
stating 'you registered nurses do not know what you are doing. Get out of here. I don't want you' Eventually did calm and was more cooperative after he thought one of our male nurses was a doctor and told him to listen to his nurse. Will answer few
basic questions but then will make random outburts about different things. Needs frequent redirection. Gets easily frustrated. Skin is pink wm and dry. Temp 100.6 core. Respirs are shallow and sl tachypnic but non-labored on RA with sats of 96%. BS
are sl coarse. Intermittent moist non-prod cough Monitor AFIb rates in 100's Amiodarone gtt continues at 0.5 mg/min and Heparin gtt at 1300 units/hr via RIJ TCL. Site wnl. VS as documented. + pulses. PT and DP pulses with the doppler. Extremities
are warm. Bilateral groin incisions with STEPHEN dressings in place. L PICC flashes yellow- surgery aware. Dressings are dry and intact. No swelling or drainage. No edema. Abd is soft. Denies pain. Hypoactive BS. RLQ PRAKASH drain with small amt of serosang
drainage. ABd incision approximated with renny intact. No drainage. Lqu colostomy stoma is pink- draining greenish/dk brown loose stool. Stool for CDiff specimen obtained. Chi jernigan NG to Int suction draining brownish drainage. Thermistor dotson
in place for yellow urine. KCL rider infusing via R arm DL picc. TPN via RIJ TLC. Sites wnl. Turned and repositioned. Dotson and mouth care given. Plan of care reviewed. Vascular surgery in to see pt and updated.
--- NOTE | 2023-08-15 10:00 | PTCARENOTE ---
With sleeping- desatted to 88%- 2l nc applied-will monitor
[2023-08-15] MEDS: ZOSYN IV (10:40)
[2023-08-15] MEDS: FOLVITE 50.2000000000000028 MG IV (10:52)
[2023-08-15] MEDS: SEROQUEL 25 MG TUBE ×3 (10:52→23:01)
[2023-08-15] MEDS: ELIQUIS 5 MG TUBE ×2 (10:52→21:02)
[2023-08-15] MEDS: DILAUDID 0.5 MG IV ×3 (10:53→23:14)
[2023-08-15] MEDS: OFIRMEV 100 IV (10:53)
--- NOTE | 2023-08-15 10:55 | PTCARENOTE ---
Additional assessment- Temp 100.8 core- Ofermiv 1000 mg IV hung
--- NOTE | 2023-08-15 10:55 | PTCARENOTE ---
Dr. Balbuena in earlier and updated. Dr. Ulloa in as well. Per Dr. Ulloa-looking to see flatus from colostomy and as such will keep TPN for now but ok for med via NG and clamp 30 min after. Eliquis ordred and given currently and NG clamped. Pt dozes
at intervals. Somewhat less restles and overall more cooperative. C/o back pain-repositioned and medicated with Dilaudid 0.5 mg IV.
--- NOTE | 2023-08-15 11:11 | W.PN.CRS1 ---
Today's Communication / Plan
-
Oked po meds via NGT.
Continue other measures.
Assessment/Plan
-
POD 9.
1. stoma viable. Stool but no gas in bag. Continue NGT and TPN. Oked po meds via NGT with 30 minutes clamp afterwards.
2. CT yesterday without obvious GI issue. Left renal artery occlusion noted as well as some evidence for left kidney infarction. This may well be source of fevers and leukocytosis.
3. continue ICU care.
Subjective Data
Procedure
08/06/2023- open left colectomy with takedown of splenic flexure and end distal sigmoid colostomy, ischemic colitis
Subjective Data
Date of Service: August 15, 2023
A bit agitated and in restraints (like yesterday). NGT in place.
Objective Data
-
Vital Signs
Temp Pulse Resp BP Pulse Ox
100.6 F H 98 16 127/88 99
08/15/23 08:00 08/15/23 10:00 08/15/23 10:00 08/15/23 10:00 08/15/23 10:00
Intake & Output
08/14/23 08/15/23 08/16/23
06:59 06:59 06:59
Intake Total 2448.5 / 2567.2 4080.8 / 4173.5 497.8 / 497.8
Output Total 2854 / 2904 2872 / 2872 240 / 240
Balance -405.5 / -336.8 1208.8 / 1301.5 257.8 / 257.8
Intake:
IV fluids (Total) 788.5 / 819.2 736.8 / 766.5 278.8 / 278.8
Heparin 296 / 310 336 / 349 52 / 52
KCL rider 160 / 160
amiodarone 417.5 / 434.2 400.8 / 417.5 66.8 / 66.8
kcl 75 / 75
IV piggybacks 25 / 50 815 / 815
TPN/PPN 1575 / 1638 1449 / 1512 189 / 189
Amount instilled into GI Tube ( 60 / 60 1080 / 1080 30 / 30
Total)
Cache Sump 60 / 60 1080 / 1080 30 / 30
Output:
Liquid stool amount 200 / 200 20 / 20
Colostomy 200 / 200 20 / 20
Drain Output (Total) 120 / 120 50 / 50
Right Lower Abdomen Damian- 120 / 120 50 / 50
Tello
Gastrointestinal tube output ( 900 / 900 950 / 950
Total)
Cache Sump 900 / 900 950 / 950
Urine, Balbuena 1834 / 1884 1672 / 1672 220 / 220
Lab Results
08/15/23 04:15
08/15/23 04:15
Physical Exam
-
General: Mild Distress
Chest: Clear
Cardiovascular: Regular Rate & Rhythm
Abdomen: Distended (mild), Tender (mild incisional) and Other (stoma viable with some liquid stool but no gas; PRAKASH with SS output)
Data Reviewed
-
Diagnostic Radiology: Image Reviewed and Report Reviewed
--- NOTE | 2023-08-15 11:15 | PTCARENOTE ---
Dozing post Dilaudid. Heparin gtt dc'd per md order.
--- NOTE | 2023-08-15 11:31 | WOUNDNOTE ---
WO RN NOTE: Patient's stoma dark pink, warm. Pic sent to Dr. Ulloa. Green liquid stool in pouch. Stoma flush. Peristomal skin intact. [place] wafer # [id number], [place] seal and Yasmany pouch # [id number] applied. Ostomy supplies and colostomy teaching
folder in room. Skin on heels intact and off-loaded on pillows. Patient remains in hand mitt. Next appliance change due Friday. Will continue to connect with for ostomy teaching.
--- NOTE | 2023-08-15 11:50 | PTCARENOTE ---
Physical therapy in to work with pt and sat pt on the side of the bed. Needs redirection but was able to sit-see PT notes. NG back to int suction. No other changes with assessement.
[2023-08-15] MEDS: MAXIPIME 1000 MG IV ×2 (11:54→19:51)
[2023-08-15] MEDS: STERILE WATER FOR INJECTION 10 ML IV ×2 (11:55→19:51)
[2023-08-15] MEDS: FLUSH (NSS) 2 FLUSH IV ×2 (11:57→17:53)
--- NOTE | 2023-08-15 12:10 | PTCARENOTE ---
#1 unit PRC hung via R IJ TLC
[2023-08-15] MEDS: NOVOLOG FLEXPEN-LOW RESISTANCE 2 UNITS SC (12:14)
[2023-08-15 12:25] LABS: Glucose - Point of Care 212 mg/dl (70-99)
--- NOTE | 2023-08-15 14:31 | W.PN.CD ---
Addendum entered and electronically signed by Alexey Millan MD 08/15/23 15:49:
I saw and examined the patient.
The PHOTORESIST PRINTER's note was reviewed and I agree with the note.
Comment: As planned: Amio IV stopped (in favor of enteral metoprolol). IV heparin stopped in favor of Eliquis via tube.
Suspected loss of one kidney noted.
Original Note:
Today's Communication / Plan
-
Transition to metoprolol via tube
Apixaban resumed
Impression / Plan
-
Complex vascular surgery on 08/06/2023 for AAA/iliac disease/PAD
Ischemic colitis, postop vascular surgery S/P colostomy, flexible sigmoidoscopy and colectomy with a colostomy on 08/06/[address] Padilla
Fever, leukocytosis, per primary team
Permanent atrial fibrillation
-Transition from intravenous Labetalol to metoprolol tartrate (needs to be crushed)
-Transitioned to apixaban today
-Amiodarone stopped 08/15/23
Anemia, 2 units PRBC today by primary (Hgb 7.4)
HTN
NSVT, normal LVEF, continue BB
Abnormal troponin, peak 0.043, likely nonischemic myocardial injury in the setting of acute illness
CAD, PCI with stenting 1993 & 1994, CABG 2016, stable without CP
Prior CVAs
HLD, continue rosuvastatin 40mg when bowel function returns
Current smoker, cessation recommended
Subjective:
He is sleeping and appears comfortable.
Echo 05/2023: LVEF 50-55%
Physical Exam
Vital Signs/Labs
Vital Signs
Temp Pulse Resp BP Pulse Ox
100.3 F 95 20 121/71 95
08/15/23 14:19 08/15/23 14:19 08/15/23 14:19 08/15/23 14:19 08/15/23 14:19
08/14/23 08/15/23 08/16/23
06:59 06:59 06:59
Actual Weight 78 kg 77.1 kg
08/15/23 04:15
08/15/23 04:15
PT 15.4 Sec (11.4-14.6) H 08/06/23 03:27
INR 1.21 08/06/23 03:27
APTT Cancelled 08/15/23 12:00
Magnesium 2.3 mg/dl (1.6-2.3) 08/15/23 04:15
Triglycerides 208 mg/dl (10-149) H 08/11/23 13:18
08/11/23
04:15
[id number] Pept 4920
Physical Exam
Constitutional: No acute distress and Comfortable
EENT: Anicteric and Moist mucous membranes
Cardiovascular: Rhythm/rate is irregular, S1S2 is normal and Murmur/rub/gallop absent
Respiratory: Respiratory effort normal and Crackles Present
GI: Soft, Distention absent, Flat, Non tender and Normal bowel sounds
Neuro/Psych: Other (resting comfortably)
Other: Skin (warm and dry)
Data Reviewed
-
Date of Service: August 15, 2023
--- NOTE | 2023-08-15 14:41 | W.PN.UPDATE ---
Update Note
Progress Note Update
patient seen chart reviewed. discussed with nursing and with dr hoffman. the patient was sleeping when seen. son was at bedside. nursing reports patient calmer at this time. dr hoffman has dc'ed risperdal and started serqouel which does have sedative
properties. would check ecg and follow qtc. son had some ? about patient 's treatment which i was able to answer for him. would be careful about adding prns of seroquel for agitation give qtc issues have ordered ecg to monitor.
--- NOTE | 2023-08-15 14:45 | PTCARENOTE ---
Dozing most of the afternoon. #1 unit PBC's completed and currently #2 unit of PBC hung via [facility] TLC. Site WNL. Attila Hernandezy in to visit and updated.
--- NOTE | 2023-08-15 15:42 | CM ---
CM following re: discharge planning.
Discussed in rounds, reviewed pt's chart, met with pt. Per Rounds meeting, pt slowly improving, TPN ongoing, NGT in place, continue supportive care.
Awaiting for determination from [facility] for a short term rehab when medically stable.
D/C plan: [facility] when pt is medically stable.
CM will follow with discharge plan updates as hospitalization progresses
--- NOTE | 2023-08-15 16:30 | PTCARENOTE ---
Remains resting. Dozes at intervals. When awake does get easily frustrated when care is being provided to him. Currently again believes he is a home and would like a knife to get the restraints off. At times will make comments or ramble. Reoriented
multiple times throughout the shift. MERRILL. Soft wrist and mitts intact as pt will reach up toward his face and the NG tube is there. Respirs are unlabored. Remains on RA satting 97%. Coughing moist cough-but every time I try to use the Yankeur he
says ' I swallowed it' I'm fine. Afib in the 90's. VS as documented. #2 unit of blood infusing. Meds given via NG and clamped after. Colostomy with dk brownish/green stool. No flatus noted. TPN infusing as ordered. Turned and repositioned. Skin and
mouth care given. Will continue to monitor.
[2023-08-15] MEDS: LOPRESSOR 25 MG TUBE ×2 (16:41→21:03)
[2023-08-15] MEDS: FLAGYL 500 MG TUBE ×2 (16:42→21:02)
[2023-08-15 17:50] LABS: Glucose - Point of Care 178 mg/dl (70-99)
[2023-08-15] MEDS: TYLENOL ORAL SOLUTION 650 MG TUBE ×2 (17:52→22:20)
--- NOTE | 2023-08-15 17:56 | PTCARENOTE ---
#2 unit prbc infused. Temp 100.6 -medicated with Tylenol 650 mg via NG. No other changes
--- NOTE | 2023-08-15 20:00 | PTCARENOTE ---
Received pt resting in bed, oriented only to self, thinks he is at home and wants to go to the bar across the street. Unsure of month/year. MERRILL, weak. Restraints + mitts in place for safety per orders. Afib with PVCs on tele. HR 90-100s. BP
150-160/80. Weak DP/PT pulses. B/L fem sites with STEPHEN dsgs. Temp 100.3 core. On RA. Lungs coarse + diminished. Spo2 98%. Moist, harsh productive cough.. white sputum. Yankauer used but sometimes pt refuses and swallows it. NG to LICATRACHITA, irrigated. L
colostomy with brown/green liquid stool, no flatus noted in bag. Midline incision with renny + dsg. R abd PRAKASH drain with serosang output. Temp sensing dotson draining smiley/yellow urine. R IJ TLC with TNP infusing. R DL PICC patent and capped. Mouth
care provided. Turning q2.
[2023-08-15] MEDS: Parenteral Nutrition, Central 1510 IV (20:59)
[2023-08-15] MEDS: LOPRESSOR 5 MG IV (23:01)
--- NOTE | 2023-08-15 23:19 | W.PN.UPDATE ---
Update Note
Progress Note Update
2300- Coffee ground NGT drainage with maroon color, gastrointestinal tube flushed, continues with same colored drainage. Vital signs stable, bp stable. Will check H&H and bmp. Consulted GI and initiated protonix gtt.
[2023-08-15 23:21] LABS: Hematocrit 25.3 % (39.0-52.0)
--- NOTE | 2023-08-15 23:21 | PTCARENOTE ---
Maroon output noted in NG tube. APIARIST at bedside. Protonix gtt ordered and GI consulted. Labs ordered. HR also been climbing up to 110s at times. One time dose IV lopressor given.
[2023-08-15] MEDS: PROTONIX 100 IV (23:25)
[2023-08-15 23:37] LABS: Blood Urea Nitrogen 36 mg/dl (9-20); Calcium 8.7 mg/dl (8.4-10.2); Carbon Dioxide 26 mmol/L (22-30); Chloride 110 mmol/L (98-107); Estimated Creatinine Clearance 41 ml/min; Glucose 158 mg/dl (70-99); Potassium 3.8 mmol/L (3.5-5.1); Sodium 136 mmol/L (135-145); eGFR 47.06
[2023-08-15 23:38] LABS: Glucose - Point of Care 165 mg/dl (70-99)
[2023-08-16] VITALS (22 sets, daily range): BP systolic 118–182; BP diastolic 65–116; BMI 25.2
[2023-08-16 03:56] LABS: Hematocrit 25.7 % (39.0-52.0); Mean Corpuscular Hgb 31.8 pg (27.0-31.0); Mean Corpuscular Volume 90.8 fL (80.0-94.0); Mean Platelet Volume 11.6 fL (7.4-10.4); Platelet Count 320 10^3/uL (130-400); Red Blood Cell Count 2.83 10^6/uL (4.70-6.10); Red Cell Dist. Width 15.6 % (11.5-14.5); White Blood Cell Count 30.8 10^3/uL (4.8-10.8)
[2023-08-16 04:34] LABS: ALT (SGPT) 70 U/L (0-50); AST (SGOT) 83 U/L (17-59); Albumin 2.2 g/dl (3.5-5.0); Alkaline Phosphatase 135 U/L (38-126); Blood Urea Nitrogen 36 mg/dl (9-20); Calcium 8.8 mg/dl (8.4-10.2); Carbon Dioxide 25 mmol/L (22-30); Chloride 112 mmol/L (98-107); Estimated Creatinine Clearance 41 ml/min; Glucose 170 mg/dl (70-99); Magnesium 2.4 mg/dl (1.6-2.3); Phosphorus 3.1 mg/dl (2.5-4.5); Potassium 3.9 mmol/L (3.5-5.1); Sodium 139 mmol/L (135-145); Total Bilirubin 0.6 mg/dl (0.2-1.3); Total Protein 5.2 g/dl (6.3-8.2); eGFR 47.06
[2023-08-16] MEDS: MAXIPIME 1000 MG IV ×3 (04:57→20:49)
[2023-08-16] MEDS: STERILE WATER FOR INJECTION 10 ML IV ×3 (04:57→20:49)
[2023-08-16] MEDS: DILAUDID 0.5 MG IV (06:22)
[2023-08-16] MEDS: NOVOLOG FLEXPEN-LOW RESISTANCE 1 UNITS SC (06:23)
[2023-08-16 06:33] LABS: Glucose - Point of Care 151 mg/dl (70-99)
--- NOTE | 2023-08-16 07:16 | W.PN.INTV ---
Today's Communication / Plan
Recommendations
coffee grounds noted, gi consulted
creat has plateaued
iv drips now transitioned to po meds per cards for rate/bp control
on eliquis now
tpn continues
abx per team
Assessment
-
78-year-old male with a PMHx of PAD s/p kissing iliac stents bilaterally, AAA, COPD, tobacco use disorder, CAD s/p CABG x3 and A-fib s/p multiple failed cardioversions who presents with elective bilateral femoral endarterectomy and vascular
intervention for AAA. s/p bilateral femoral cutdowns, femoral endarterectomies with patch angioplasty and then eventually retrograde balloon angioplasty with stenting of the left iliac artery and endovascular repair of his aortic aneurysm on
08/05/23. Patient is transferred postoperatively to the ICU and functional manager service is consulted for additional management/recommendations.
Impression:
#Acute hypoxic respiratory failure s/p intubation on mechanical ventilation - likely combo of PNA and pulmonary edema, I suspect mainly the former though
s/p intubation 08/09/23
#Bilateral femoral artery stenosis s/p cutdown with endarterectomy with bovine patch angioplasty & left iliac artery stenting 08/05/23
#AAA s/p EVAR using physician modified aortic endograft 08/05/23
#Rectal bleeding/BRBPR due to ischemic colitis s/p flexible sigmoidoscopy with open left colectomy with takedown of splenic flexure and end-distal sigmoid colostomy 08/06/23
#Lactic acidosis due to ischemic colitis (likely as an unfortunate complication from the EVAR) - lactate normalized
#Leukocytosis
#Anemia - due to ischemic colitis as above
#A-fib with RVR s/p cardizem gtt and now amiodarone gtt
#Hx of COPD (moderate severity per spirometry from 2019)
#Alcohol use disorder c/b acute withdrawal
ICU delirium
Fever
NATALIE with acute renal infarcts
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
Hyperlipidemia
ED
PMR
hypertension
CAD s/p s/p stents (1993 + 1994), CABG x3
history of skin cancer
tobacco use disorder, PAD
NSVT s/p ablation
history of alcohol abuse
history of COPD
A-fib (diagnosed in 2016)
history of diverticulosis
history of NSTEMI
Plan:
Likely with ICU delirium, has remained off IV sedation >24 hours
Off phenobarb, seroquel continued
Neuro and vascular checks per protocol also continue
RASS goal 0
Dilaudid PRN for pain
Psych following
Acute hypoxic RF s/p intubation, had been on NRB, now on room air
Extubated 08/11/23, doing well
Titrate FiO2 and PEEP to maintain SpO2 >88%
COPD history: resume home inhalers, stop nebs
Suspect acute HFpEF, proBNP 4920
CXR showing enlarged cardiac silhouette, last ECHO preserved function
Diurese as tolerated
Maintain MAP>70-90mmHg
Pt now off cardizem gtt and started on amiodarone; goal HR<110bpm
Continue IV lopressor 5mg q6hr
IV labetalol
Hep IV gtt
Cards following
NPO post colon surgery, TPN continued
Ok for meds via tube
CRC following
NGT replaced for persistent vomiting
Continue Abx with Zosyn and completed 7 day course
Culture neg to date
Fever again, now on CFP/Flagyl
Fever noted, repeat cultures and CT obtained--reviewed
NATALIE with renal infarcts
Creat trending up, plateau at 1.5
Follow UO
Monitor hemoglobin with serial CBC
Transfuse if needed to maintain Hb>7g/dL, plt>50k
Monitor blood sugars with goal BG 140-180mg/dL
Insulin supplementation if needed
Post-operative management as per vascular surgery and colorectal surgery - operation notes reviewed and recs appreciated
DVT prophylaxis recommended: Hep IV, on Eliquis at home
Stress ulcer ppx
Diagnostic Data
CXR 08-10-2023: Bilateral pulmonary opacities are not significantly changed compared to the previous chest radiograph from 08/09/2023.
CXR 08-09-2023: Increased bilateral airspace and interstitial compared to the chest radiograph from 08/08/2023 suggestive of worsening pulmonary edema versus pneumonia.
CXR 08-08-2023:Interval development of ill-defined perihilar airspace opacities as well as ill-defined opacity within the right lung base. No significant effusions. Findings suspicious for pulmonary edema versus less likely multifocal pneumonia.
Abd XR 08-06-2023: Feeding tube placement as described above. Moderate fecal material in the colon. Stable postsurgical change of the abdomen.
ECHO 05/09/23: Normal biventricular size and systolic function without regional wall motion abnormality. Estimated LVEF 50-55%. Mild concentric left ventricular hypertrophy. No significant valve disease.
Compared to 01/15/23: no significant change.
Prior Spirometry: 12/2019: FEV1/FVC: 45, FEV1: 1.71L (58% predicted), FVC: 3.76L (93% predicted), [id number]%: 18%
-----
Critical Care time 35 mins -- The patient is admitted for acute critical illness for the treatment of vital organ failure and/or prevention of further life-threatening conditions. Total care includes time spent in review of history, physical exam,
medications, hemodynamic/ventilator parameters, laboratory data, imaging and discussion with house staff, pharmacy, respiratory therapy, plate put in worker, and nursing.
Subjective Dataa
Subjective Data
Date of Service:
Date of Service: August 16, 2023
Chief Complaint: Search Strategist Follow Up
Subjective:
no acute events on
remains in mitts, ngt to suction
possible coffee ground emesis in basin, GI consulted
Objective Data
Data Reviewed
Vital Signs / I&O / Oxygen:
Vital Signs
Temp Pulse Resp BP Pulse Ox
100.3 F 121 23 164/99 100
08/16/23 05:00 08/16/23 06:00 08/16/23 06:00 08/16/23 06:19 08/16/23 04:30
Intake and Output
08/15/23 08/16/23 08/17/23
06:59 06:59 07:59
Intake Total 4080.8 / 4173.5 2742.3 / 2742.3
Output Total 2872 / 2872 1900 / 1900 150 / 150
Balance 1208.8 / 1301.5 842.3 / 842.3 -150 / -150
SaO2 [A/C] 97
SaO2 100
Nasal Cannula flow liters per 2
minute
Physical Exam
General: Comfortable, Chills (negative), Poor Appetite and Other (mitts/restraints)
HEENT: Normocephalic and Anicteric
Cardiovascular: S1-S2, Irregular Rhythm (tachycardic) and Peripheral Edema (negative)
Respiratory: Wheeze (negative), Crackles (negative), Rhonchi (Bilaterally (R >L)) and Non-Labored Respirations
GI: Soft, Non Distended, Tender (ashlyn-umbilical region without peritoneal signs), NG Tube and Other (Colostomy in place with small amount of blood seen in bag; no clots seen)
Neurology: Awake, Alert, Oriented (to self, answers but at times inappropriate), No Motor Deficits, Tremors (negative) and Other (confused, hallucinating)
Skin: Warm, Dry and Other (toes are cool to touch bilaterally)
Labs/Micro/Reports
Lab Data
08/16/23 03:38
08/16/23 03:38
Laboratory Results
08/15/23
12:00
APTT Cancelled
Microbiology
08/10/23 16:41 Blood/Venous Blood Culture - Final
No Growth - Final Report
08/11/23 13:18 Blood/Venous Blood Culture - Preliminary
No Growth in 4 days- Final report to follow
08/15/23 10:07 Feces/Stool C. difficile GDH Antigen & Toxins - Final
Negative for toxigenic C.difficile
08/14/23 10:03 Blood/Venous Blood Culture - Preliminary
No Growth in 24 hours- Final report to follow
08/14/23 09:54 Blood/Venous Blood Culture - Preliminary
No Growth in 24 hours- Final report to follow
08/14/23 09:55 Urine Urine Culture - Final
NO GROWTH
08/11/23 10:27 Endotracheal Respiratory Culture - Final
NO GROWTH
08/11/23 10:27 Endotracheal Gram Stain - Final
[2023-08-16] MEDS: PROTONIX 100 IV ×2 (07:34→17:25)
--- NOTE | 2023-08-16 08:07 | CON.GI ---
Addendum entered and electronically signed by Ethan Dominguez MD 08/16/23 13:46:
I saw and examined the patient.
The PA's note was reviewed and I agree with the note.
Comment:
Patient is a 78 year old male with h/o CAD (s/p CABG x3), afib on Eliquis, PAD, COPD, tobacco abuse who had elective bilateral femoral endarterectomy and vascular intervention for AAA on 08/05/23 complicated by bowel ischemia s/p left colectomy with
ostomy. TPN was started on 08/11, patient has remained NPO with NG tube in place since.
GI called for dark maroon colored drainage from the NG tube which occurred last night. Protracted course and now NGT is draining bilious fluid. Hgb dropped to 7.4 yesterday (from 8.5), 1 unit of PRBCs and Hgb is now 9.0. Protonix infusion was
started last night.
Would recommend changing PPI infusion to Protonix 40 mg IV BID. Monitor NGT output, follow Hgb. Minimal concern for active bleeding currently. GI will s/o for now, pls call back if bleeding is suspected.
Original Note:
Consultation
-
Date/Time Consultation Requested: 08/15/23 2304
Date/Time Consultation Performed: 08/16/23 0800
Requesting Provider: Dr. Alfredo
Performing Provider: Dr. Dominguez / Dia Lilly PA-C
Reason for Consultation: coffee grounds NGT drainage
Medical History
Chief Complaint / HPI
Chief Complaint: coffee grounds NG tube drainage
History of Present Illness:
This is a 78 year old male currently in ICU with a past medical history of CAD (s/p CABG x3), atrial fibrillation (on Eliquis), PAD, COPD, tobacco use disorder who underwent elective bilateral femoral endarterectomy and vascular intervention for AAA
on 08/05/23 who developed bright red blood per rectum with fever the following day 08/06 and underwent flexible sigmoidoscopy with Dr. Padilla for suspected ischemic colitis. Moderate to severe ischemia was seen and patient required left colectomy with
ostomy. Patient subsequently developed fever, currently treated with IV antibiotics, blood and urine cultures negative. TPN was started on 08/11, patient has remained NPO with NG tube in place. Last night, there was dark maroon colored drainage from
the NG tube and GI is consulted for concern of possible upper GI bleeding. It only occurred once last night and there is now noted to be a yellowish colored fluid in the NG tubing. Hgb dropped to 7.4 yesterday (from 8.5). He received 1 unit of PRBCs
and Hgb is now 9.0 on 08/15. Patient is agitated at the time of my examination and questioning and would not allow for exam or answer my questions. Most information obtained from nursing staff and review of prior records. Endoscopy in 2018 with
Jacqueline showed LA Grade B esophagitis and chronic gastritis. Biopsies were negative for EoE, dysplasia, H pylori, or celiac. Colonoscopy in 2018 showed sigmoid diverticulosis but was otherwise normal.
Past Medical History
Past Medical History: Other ( CAD (s/p CABG x3), atrial fibrillation (on Eliquis), PAD, COPD, tobacco use disorder, colon polyps )
Past Surgical History: Other (Cardioversion, cardiac ablation, CABG x 3, Bilateral femoral artery cutdown, endarterectomy with bovine patch angioplasty, retrograde balloon angioplasty, IV lithotripsy, and stenting left iliac artery, endovascular
aneurysm repair using physician modified aortic endograph, left colectomy w/ ostomy)
Social History
Tobacco: Smoker (1 PPD x 60 years)
Alcohol: Former
Drug: None
Family History
Family History: Unable to Obtain
Allergies / Home Medications
Allergy/AdvReac Type Severity Reaction Status Date / Time
Benzodiazepines Allergy works Verified 08/08/23 13:39
opposite-
gets
agitated
codeine Allergy gets wild- Verified 08/05/23 06:41
hallucinations,
visual
diazepam Allergy agitated + Verified 08/05/23 06:41
nervous
Medication Instructions Recorded
cetirizine 10 mg tablet 10 mg PO PRN PRN allergy 07/07/13
acetaminophen 325 mg tablet 650 mg PO PRN PRN pain 11/12/21
cholecalciferol (vitamin D3) 50 2,000 units PO DAILY@1200 11/12/21
mcg (2,000 unit) tablet Supplement
diltiazem HCl 300 mg 300 mg PO DAILY Arrhythmia 11/12/21
capsule,extended release 24 hr
docusate sodium 100 mg capsule 100 mg PO DAILY@1200 Constipation 11/12/21
multivitamin with folic acid 400 1 tab PO DAILY@1200 Supplement 11/12/21
mcg tablet (Tab-A-Samir)
tiotropium bromide 1.25 2 puff inhalation R DAILY PRN 11/12/21
mcg/actuation mist for inhalation sob/wheezing
(Spiriva Respimat)
lisinopril 5 mg tablet 5 mg PO NOON Blood Pressure 05/08/23
vitamin B complex 1 cap PO DAILY@1200 Supplement 05/08/23
zinc acetate 50 mg (zinc) capsule 50 mg PO DAILY@1200 Supplement 05/08/23
apixaban 5 mg tablet (Eliquis) 5 mg PO BID Blood clot 05/10/23
prevention/tx #0 tabs
rosuvastatin 40 mg tablet (Crestor) 40 mg PO HS High cholesterol #0 05/10/23
tabs
folic acid 400 mcg tablet 0.4 mg PO DAILY Supplement 07/28/23
Review of Systems
-
Unable to obtain full review of systems at this time due to: Other
History Source: Other (pt agitated and noncooperative)
Vital Signs
Temp Pulse Resp BP Pulse Ox
100.2 F 124 21 169/88 97
08/16/23 07:52 08/16/23 07:30 08/16/23 07:30 08/16/23 07:00 08/16/23 07:00
Physical Exam
Exam
General: Well Developed, Well Nourished and Other (agitated, in restraints)
Skin: Warm and Dry
Neuro: Awake and Alert
Psych: Agitated
Results
WBC 30.8 10^3/uL (4.8-10.8) H 08/16/23 03:38
Hgb 9.0 g/dL (13.0-18.0) L 08/16/23 03:38
Hct 25.7 % (39.0-52.0) L 08/16/23 03:38
MCV 90.8 fL (80.0-94.0) 08/16/23 03:38
Plt Count 320 10^3/uL (130-400) 08/16/23 03:38
Absolute Neuts (auto) Not Reportable 08/06/23 16:36
PT 15.4 Sec (11.4-14.6) H 08/06/23 03:27
INR 1.21 08/06/23 03:27
APTT Cancelled 08/15/23 12:00
Sodium 139 mmol/L (135-145) 08/16/23 03:38
Potassium 3.9 mmol/L (3.5-5.1) 08/16/23 03:38
Chloride 112 mmol/L (98-107) H 08/16/23 03:38
Carbon Dioxide 25 mmol/L (22-30) 08/16/23 03:38
BUN 36 mg/dl (9-20) H 08/16/23 03:38
Creatinine 1.5 mg/dL (0.7-1.3) H 08/16/23 03:38
Calcium 8.8 mg/dl (8.4-10.2) 08/16/23 03:38
Total Bilirubin 0.6 mg/dl (0.2-1.3) 08/16/23 03:38
AST 83 U/L (17-59) H 08/16/23 03:38
ALT 70 U/L (0-50) H 08/16/23 03:38
Alkaline Phosphatase 135 U/L (38-126) H 08/16/23 03:38
Amylase 91 U/L (30-110) 08/06/23 03:27
Lipase 88 U/L (23-300) 08/06/23 03:27
Diagnostic Image Results:
CT Abdomen/Pelvis 08/14/23:
-Bibasilar subsegmental atelectasis, left greater than right and tiny left pleural effusion.
-No focal lung parenchymal consolidation to suggest bronchopneumonia.
-Endovascular abdominal aortic aneurysm repair with bilateral renal cyst artery stents noted in the interval since prior CTA. Lack of perfusion/opacification of the left kidney suspicious for impending infarction, possibly related to left renal
artery stent occlusion. Small somewhat wedge-shaped hypodensities in the right kidney suggesting developing small infarcts. Results discussed with Dr. Rivera at approximately 1115 hours on August 14, 2023.
-Prior left colectomy with Grissom's procedure. No findings to suggest extravasation or leak of oral contrast and no gross abdominal/pelvic abnormal focal fluid collection.
Prior GI Procedures:
EGD: 12/02/2017, Dr. Phillips
- LA Grade B reflux esophagitis. Biopsied.
�� � � � � � � � � � - Chronic gastritis. Biopsied.
�� � � � � � � � � � - Normal third portion of the duodenum. Biopsied.
Colonoscopy:
12/02/2017, Dr. Phillips
�- Diverticulosis in the sigmoid colon.
�� � � � � � � � � � - The examination was otherwise normal.
�� � � � � � � � � � - No specimens collected.
04/27/2015, Dr. Diallo
�- Two 2 to 3 mm polyps in the rectum. Resected and
�� � � � � � � � � � retrieved.
�� � � � � � � � � � - Diverticulosis in the sigmoid colon and in the
�� � � � � � � � � � ascending colon.
�� � � � � � � � � � - Anal papilla(e) were hypertrophied.
�� � � � � � � � � � - The examination was otherwise normal on direct and
�� � � � � � � � � � retroflexion views.
Biopsies showed rectal polyps were tubular adenoma and hyperplastic.
Assessment / Plan
-
78 year old male currently in the ICU with CAD (s/p CABG x3), atrial fibrillation (on Eliquis), PAD, COPD, tobacco use disorder who underwent elective bilateral femoral endarterectomy and vascular intervention for AAA on 08/05/23 who developed bright
red blood per rectum with fever the following day 08/06 and underwent flexible sigmoidoscopy with Dr. Padilla for suspected ischemic colitis. Moderate to severe ischemia was seen and patient required left colectomy with ostomy. Patient subsequently
developed fever, currently treated with IV antibiotics, blood and urine cultures negative. TPN was started on 08/11, patient has remained NPO with NG tube in place. Last night, there was dark maroon colored drainage from the NG tube and GI is
consulted for concern of possible upper GI bleeding. It occurred once last night and there is now noted to be a yellowish colored fluid in the NG tubing. Hgb dropped to 7.4 yesterday (from 8.5). He received 1 unit of PRBCs and Hgb is now 9.0 on 08/15.
Patient is agitated at the time of my examination and questioning and would not allow for exam or answer my questions. Most information obtained from nursing staff and review of prior records. Endoscopy in [address] Phillips showed LA Grade B
esophagitis and chronic gastritis. Biopsies were negative for EoE, dysplasia, H pylori, or celiac. Colonoscopy in 2018 showed sigmoid diverticulosis but was otherwise normal.
IMPRESSION / PLAN:
Maroon-colored drainage from NG tube, concern for possible UGI Bleed vs irritation from NG tube
- Hgb dropped to 7.4 yesterday, now 9.0 after 1 unit PRBCs
- NG tube currently draining yellow fluid
- will monitor H & H, as well as NGT output
- if recurrence or further drop in Hgb, consider endoscopy
- NPO
- continue TPN
Ischemic Colitis s/p L colectomy with ostomy 08/06
- POD 10
- Colorectal Surgery following
All other medical problems managed as per [employer] S[employer] Supervisor, surgical specialists (Colorectal, Vascular, General), Cardiology and Psychiatry
-
-
Thank you for consultation and allowing me to participate in the patient's care. Please call the preschool paraprofessional GI physician during the after hours with any questions or concerns.
[2023-08-16] MEDS: SPIRIVA RESPIMAT 2.5 MCG 2 PUFF INH (08:10)
--- NOTE | 2023-08-16 08:10 | W.PN.VS ---
Today's Communication / Plan
-
as above
Assessment/Plan
-
Plan/ POD# 11
cont anticoag/antiplatelet
ppi drip
tpn, nutrition profile friday
monitor uop closely. strict i/o's
cont antipsychotics and monitor closely in icu
Subjective Data
-
Date of Service: August 16, 2023
Event noted wrt NGT output
Stable this AM
No complaints
Alert. Agitated/delirious
Answering questions
Denies pain
Objective Data
-
Vital Signs
Temp Pulse Resp BP Pulse Ox
100.2 F 124 21 169/88 97
08/16/23 07:52 08/16/23 07:30 08/16/23 07:30 08/16/23 07:00 08/16/23 07:00
Intake and Output
08/15/23 08/16/23 08/17/23
06:59 06:59 07:59
Intake Total 4080.8 / 4173.5 2742.3 / 2742.3
Output Total 2872 / 2872 2200 / 2200 150 / 150
Balance 1208.8 / 1301.5 542.3 / 542.3 -150 / -150
Intake:
IV fluids (Total) 736.8 / 766.5 445.3 / 445.3
Heparin 336 / 349 65 / 65
KCL rider 160 / 160
Protonix 70 / 70
amiodarone 400.8 / 417.5 150.3 / 150.3
IV piggybacks 815 / 815 25
TPN/PPN 1449 / 1512 1512 / 1512
Feeding tube flush amount 80 / 80
Amount instilled into GI Tube ( 1080 / 1080 180 / 180
Total)
[place] Sump 1080 / 1080 180 / 180
Blood Product Amount Infused ( 500 / 500
mL)
Packed Rbc Leukoreduced Unit 250 / 250
[id number]
Packed Rbc Leukoreduced Unit 250 / 250
[id number]
Output:
Liquid stool amount 200 / 200 20 / 20 150 / 150
Colostomy 200 / 200 20 / 20 150 / 150
Drain Output (Total) 50 35 / 35
Right Lower Abdomen Damian- 50 35 / 35
Tello
Gastrointestinal tube output ( 950 / 950 600 / 600
Total)
[place] Sump 950 / 950 600 / 600
Urine, [place] 1672 / 1672 1545 / 1545
Lab Results
08/16/23 03:38
08/16/23 03:38
Calcium 8.8 mg/dl (8.4-10.2) 08/16/23 03:38
Phosphorus 3.1 mg/dl (2.5-4.5) 08/16/23 03:38
Magnesium 2.4 mg/dl (1.6-2.3) H 08/16/23 03:38
Total Bilirubin 0.6 mg/dl (0.2-1.3) 08/16/23 03:38
Direct Bilirubin 0.5 mg/dl (0.0-0.4) H 08/06/23 03:27
AST 83 U/L (17-59) H 08/16/23 03:38
ALT 70 U/L (0-50) H 08/16/23 03:38
Alkaline Phosphatase 135 U/L (38-126) H 08/16/23 03:38
Total Protein 5.2 g/dl (6.3-8.2) L 08/16/23 03:38
Albumin 2.2 g/dl (3.5-5.0) L 08/16/23 03:38
Physical Exam
-
Non toxic
Mitt restraints b/l UEs
Feet warm with robust Dopp signals
Abd flat, soft NT
Stoma prod
Incisions clean/dry
[2023-08-16] MEDS: FLAGYL 500 MG TUBE ×3 (08:19→21:58)
[2023-08-16] MEDS: FOLVITE 1 MG TUBE (08:19)
[2023-08-16] MEDS: SEROQUEL 25 MG TUBE ×2 (08:19→16:18)
[2023-08-16] MEDS: ELIQUIS 5 MG TUBE ×2 (08:19→20:49)
[2023-08-16] MEDS: LOW STRENGTH ASPIRIN 81 MG TUBE (08:19)
[2023-08-16] MEDS: VITAMIN B-12 100 MCG TUBE (08:19)
[2023-08-16] MEDS: LOPRESSOR 25 MG TUBE ×3 (08:19→22:00)
[2023-08-16] MEDS: NSS (PRESERVATIVE FREE) IV (08:20)
[2023-08-16] MEDS: TYLENOL ORAL SOLUTION 650 MG TUBE ×2 (10:19→18:13)
--- NOTE | 2023-08-16 10:22 | W.PN.UPDATE ---
Update Note
Progress Note Update
Chart reviewed. Psychiatry follow up for agitated ICU delirium. Antipsychotic switched from Risperdal to Seroquel 25mg q8 yesterday. At this time patient is lying in bed restrained with mittens. Initially he is cooperative and responds to his name
but then quickly becomes agitated and demands I leave. He is oriented only to self. He asks if I'm a doctor but remainder of conversation is not reality-based.
A/P- 78 yo male with ICU delirium, continues to wax/wane with periods of agitation. Will continue standing Seroquel for now and see if he responds to the change. Need to monitor qtc for prolongation while on an antipsychotic. Please do so when he is
calm enough to cooperate. If no improvement will consider adding depakote to regimen. Psychiatry will continue to follow.
--- NOTE | 2023-08-16 10:40 | W.PN.CD ---
Today's Communication / Plan
-
- AF with RVR
- Will give Amiodarone bolus - mainly for rate contorl
- start Diltiazem drip for rate control
Impression / Plan
-
Complex vascular surgery on 08/06/2023 for AAA/iliac disease/PAD
Ischemic colitis, postop vascular surgery S/P colostomy, flexible sigmoidoscopy and colectomy with a colostomy on 08/06/[address] Padilla
Fever, leukocytosis, per primary team
Permanent atrial fibrillation
-Transition from intravenous Labetalol to metoprolol tartrate (needs to be crushed)
-Restarted apixaban 08/15/23
-Amiodarone stopped 08/15/23
- AF with RVR noted
- Rates are ix415b to 130s.
- Will give Amiodarone bolus
- Start Diltiazem gtt
- Metoprolol started via NG tube with unclear absorption sheila with RVR noted. Will give IV dilt and titrate based on metoprolol effect.
Anemia, 2 units PRBC by primary
- HGb responded from 7.4 to 9.0
HTN
NSVT, normal LVEF, continue BB
Abnormal troponin, peak 0.043, likely nonischemic myocardial injury in the setting of acute illness
CAD, PCI with stenting 1993 & 1994, CABG 2016, stable without CP
Prior CVAs
HLD, continue rosuvastatin 40mg when bowel function returns
Current smoker, cessation recommended
Subjective:
He is confused and mistook me for his old friend. Appears comfortable. denies any pain.
Echo 05/2023: LVEF 50-55%
Physical Exam
Vital Signs/Labs
Vital Signs
Temp Pulse Resp BP Pulse Ox
100.2 F 124 20 161/93 97
08/16/23 07:52 08/16/23 10:30 08/16/23 10:30 08/16/23 10:23 08/16/23 07:00
08/15/23 08/16/23 08/17/23
06:59 06:59 07:59
Actual Weight 77.1 kg 79.8 kg
08/16/23 03:38
08/16/23 03:38
PT 15.4 Sec (11.4-14.6) H 08/06/23 03:27
INR 1.21 08/06/23 03:27
APTT Cancelled 08/15/23 12:00
Magnesium 2.4 mg/dl (1.6-2.3) H 08/16/23 03:38
Triglycerides 208 mg/dl (10-149) H 08/11/23 13:18
08/11/23
04:15
Htb-F-Tdmgsmkoeyp Pept 4920
Physical Exam
Constitutional: No acute distress, Comfortable and Confusion
EENT: Anicteric and Moist mucous membranes
Cardiovascular: Rhythm/rate is irregular, JVD present and Systolic murmur present
Respiratory: Respiratory effort normal and Rhonchi Present
GI: Non tender and Normal bowel sounds
Neuro/Psych: Alert
Data Reviewed
-
Date of Service: August 16, 2023
Medical Decision Making: Reviewed Test Results, Test Interpretation and Review of Case with other Provider
EKG: Tracing Personally Visualized and interpreted
Echo: Tracing Personally Visualized and interpreted
X-Ray/CT/US/MRI/NUC/PET: Image Personally Visualized and interpreted
Labs: Labs Reviewed by me
Old Records: Reviewed
Critical Care Time (in minutes): 55
--- NOTE | 2023-08-16 10:49 | W.PN.GS2 ---
Today's Communication / Plan
-
-- Clamp NGT, OK for sips of clear
-- Renew TPN for today
-- Continue Cefepime, Flagyl
-- Anticoagulation per Vascular, stable Hb after transfusion, repeat tomorrow AM
Assessment / Plan
-
08/06/2023 (POD#10) - open left colectomy with takedown of splenic flexure and end distal sigmoid colostomy, ischemic colitis
Stoma viable and producing air and small stool. Repeat CT without any concern for obstruction, leak, or ongoing ischemia of the bowel. Reports of coffee grounds from NG tube overnight, clear this a.m., most likely related to NGT trauma from
suction. PPI gtt. Plan for clamp trial throughout the day, okay for clears around tube as tolerated. Repeat Hb in tomorrow AM, possible removal at that time.
Leukocytosis down, fevers likely from infarcted kidney, plan for conservative management given clinical and medical frailty and risks for re-operation.
-- Clamp NGT, OK for sips of clear
-- Renew TPN for today
-- Continue Cefepime, Flagyl
-- Anticoagulation per Vascular, stable Hb after transfusion, repeat tomorrow AM
Subjective Data
-
Date of Service: August 16, 2023
Delirious. Denies any specific abdominal complaints. No reports from nursing of nausea or vomiting. Continues to have ostomy output. Reports of possible coffee-ground NG tube output overnight, which has cleared this a.m.
Objective Data
-
Intake and Output
08/15/23 08/16/23 08/17/23
06:59 06:59 07:59
Intake Total 4080.8 / 4173.5 2742.3 / 2815.3 292 / 292
Output Total 2872 / 2872 2200 / 2200 150 / 150
Balance 1208.8 / 1301.5 542.3 / 615.3 142 / 142
Intake:
IV fluids (Total) 736.8 / 766.5 445.3 / 455.3 40 / 40
Heparin 336 / 349 65 / 65
KCL rider 160 / 160
Protonix 70 / 80 40 / 40
amiodarone 400.8 / 417.5 150.3 / 150.3
IV piggybacks 815 / 815 25 / 25
TPN/PPN 1449 / 1512 1512 / 1575 252 / 252
Feeding tube flush amount 80 / 80
Amount instilled into GI Tube ( 1080 / 1080 180 / 180
Total)
Delong Sump 1080 / 1080 180 / 180
Blood Product Amount Infused ( 500 / 500
mL)
Packed Rbc Leukoreduced Unit 250 / 250
[id number]
Packed Rbc Leukoreduced Unit 250 / 250
[id number]
Output:
Liquid stool amount 200 / 200 20 / 20 150 / 150
Colostomy 200 / 200 20 / 20 150 / 150
Drain Output (Total) 50 / 50 35 / 35
Right Lower Abdomen Damian- 50 / 50 35 / 35
Tello
Gastrointestinal tube output ( 950 / 950 600 / 600
Total)
Delong Sump 950 / 950 600 / 600
Urine, Balbuena 1672 / 1672 1545 / 1545
Vital Signs
Temp Pulse Resp BP Pulse Ox
100.2 F 124 20 161/93 97
08/16/23 07:52 08/16/23 10:30 08/16/23 10:30 08/16/23 10:23 08/16/23 07:00
Lab Results
08/16/23 03:38
08/16/23 03:38
Calcium 8.8 mg/dl (8.4-10.2) 08/16/23 03:38
Phosphorus 3.1 mg/dl (2.5-4.5) 08/16/23 03:38
Magnesium 2.4 mg/dl (1.6-2.3) H 08/16/23 03:38
Total Bilirubin 0.6 mg/dl (0.2-1.3) 08/16/23 03:38
Direct Bilirubin 0.5 mg/dl (0.0-0.4) H 08/06/23 03:27
AST 83 U/L (17-59) H 08/16/23 03:38
ALT 70 U/L (0-50) H 08/16/23 03:38
Alkaline Phosphatase 135 U/L (38-126) H 08/16/23 03:38
Total Protein 5.2 g/dl (6.3-8.2) L 08/16/23 03:38
Albumin 2.2 g/dl (3.5-5.0) L 08/16/23 03:38
Physical Exam
-
Gen: NAD
HEENT: bilious, no BRB or coffee grounds this AM
Abd: soft, minimal tenderness, mild distension, non-peritoneal, dressing c/d/i, ostomy PPV, retracted somewhat, small stool and flatus in appliance
[2023-08-16] MEDS: CORDARONE 103 MG IV (10:57)
[2023-08-16] MEDS: CARDIZEM 125 IV ×2 (11:12→21:58)
--- NOTE | 2023-08-16 11:35 | PTCARENOTE ---
1030-NGT clamped per MD. HR remaining 120-130's after am meds given, drum attendant notified. IV Amio bolus given. Cardizem gtts started at 10mg/hr as per orders.
[2023-08-16 12:15] LABS: Glucose - Point of Care 135 mg/dl (70-99)
[2023-08-16] MEDS: NOVOLOG FLEXPEN-LOW RESISTANCE SC ×2 (12:16→18:27)
--- NOTE | 2023-08-16 16:08 | PTCARENOTE ---
Pt with periods of agitation during repositioning, had attempted once today to punch RN during repositioning and was cursing at staff. Pt will calm moments later. Family in to visit this afternoon, updated. Assessment unchanged.
[2023-08-16 18:32] LABS: Glucose - Point of Care 136 mg/dl (70-99)
--- NOTE | 2023-08-16 21:00 | W.PN.UPDATE ---
Update Note
Progress Note Update
08/16/23
2030- Patient pulled off right femoral dressing surgical dressing, sutures still intact. Dr. Balbuena, vascular surgeon updated, advised dry sterile dressing be placed.
[2023-08-16] MEDS: Parenteral Nutrition, Central 1510 IV (21:01)
--- NOTE | 2023-08-16 21:30 | PTCARENOTE ---
Assumed care of patient at 1920. Patient restless and confused. Intermittently agitated and combative. Kicked this RN when attempting to assess right groin after pulling off STEPHEN drain. Vascular surgeon aware. Groin redressed. Oriented to self. Afib
with pvcs on tele monitor. Rate in the 80-90's. Up to 100's with agitation. Cardizem gtt infusing at 10 mg/hr. POX 97-98% on RA. Lung sounds shallow/diminished. Productive cough. Colostomy with small amount of liquid stool. NGT remains clamped.
Right PRAKASH to bulb suction. Balbuena in place. PPI gtt, Cardizem gtt and TPN infusing as ordered through RIJ. Full assessment and care as charted on worklist.
[2023-08-17] VITALS (22 sets, daily range): BP systolic 107–165; BP diastolic 64–98; BMI 24.4
[2023-08-17 00:03] LABS: Glucose - Point of Care 122 mg/dl (70-99)
[2023-08-17] MEDS: NOVOLOG FLEXPEN-LOW RESISTANCE SC ×2 (00:25→12:40)
[2023-08-17] MEDS: SEROQUEL 25 MG TUBE ×3 (00:25→15:23)
--- NOTE | 2023-08-17 00:30 | PTCARENOTE ---
No changes in assessment. VSS. Unable to reorient patient.
[2023-08-17] MEDS: STERILE WATER FOR INJECTION 10 ML IV ×3 (04:00→19:43)
[2023-08-17] MEDS: TYLENOL ORAL SOLUTION 650 MG TUBE (04:00)
[2023-08-17] MEDS: MAXIPIME 1000 MG IV ×3 (04:00→19:42)
--- NOTE | 2023-08-17 04:27 | PTCARENOTE ---
No changes in assessment. Pt continues to hallucinate. Labile moods. VSS. Frequent encouragement to try and sleep. No sleep overnight.
[2023-08-17] MEDS: PROTONIX 100 IV ×3 (04:29→23:34)
[2023-08-17 04:30] LABS: Hematocrit 25.2 % (39.0-52.0); Hemoglobin 8.8 g/dL (13.0-18.0); Mean Corp Hgb Conc. 34.9 g/dL (33.0-37.0); Mean Corpuscular Hgb 31.4 pg (27.0-31.0); Mean Platelet Volume 11.6 fL (7.4-10.4); Platelet Count 349 10^3/uL (130-400); Red Cell Dist. Width 15.6 % (11.5-14.5); White Blood Cell Count 22.4 10^3/uL (4.8-10.8)
[2023-08-17 04:52] LABS: ALT (SGPT) 68 U/L (0-50); AST (SGOT) 79 U/L (17-59); Albumin 2.3 g/dl (3.5-5.0); Alkaline Phosphatase 158 U/L (38-126); Blood Urea Nitrogen 39 mg/dl (9-20); Calcium 8.9 mg/dl (8.4-10.2); Carbon Dioxide 24 mmol/L (22-30); Chloride 112 mmol/L (98-107); Estimated Creatinine Clearance 44 ml/min; Glucose 132 mg/dl (70-99); Potassium 3.8 mmol/L (3.5-5.1); Sodium 140 mmol/L (135-145); Total Bilirubin 0.6 mg/dl (0.2-1.3); Total Protein 5.5 g/dl (6.3-8.2); eGFR 51.13
[2023-08-17 06:47] LABS: Glucose - Point of Care 152 mg/dl (70-99)
[2023-08-17] MEDS: NOVOLOG FLEXPEN-LOW RESISTANCE 1 UNITS SC ×3 (07:09→23:38)
--- NOTE | 2023-08-17 07:20 | W.PN.INTV ---
Today's Communication / Plan
Recommendations
Patient has remained off pressors/sedation for >72 hours
Intermittent Diltazem IV for HR, cards following
Delirium ongoing but stable on meds, psych following
Abx can likely continue for 5 day course
Creat stabilized, now trending down
Defer to primary team for transfer to floors
Assessment
-
78-year-old male with a PMHx of PAD s/p kissing iliac stents bilaterally, AAA, COPD, tobacco use disorder, CAD s/p CABG x3 and A-fib s/p multiple failed cardioversions who presents with elective bilateral femoral endarterectomy and vascular
intervention for AAA. s/p bilateral femoral cutdowns, femoral endarterectomies with patch angioplasty and then eventually retrograde balloon angioplasty with stenting of the left iliac artery and endovascular repair of his aortic aneurysm on
08/05/23. Patient is transferred postoperatively to the ICU and patient care technician service is consulted for additional management/recommendations.
Impression:
#Acute hypoxic respiratory failure s/p intubation on mechanical ventilation - likely combo of PNA and pulmonary edema, I suspect mainly the former though
s/p intubation 08/09/23
#Bilateral femoral artery stenosis s/p cutdown with endarterectomy with bovine patch angioplasty & left iliac artery stenting 08/05/23
#AAA s/p EVAR using physician modified aortic endograft 08/05/23
#Rectal bleeding/BRBPR due to ischemic colitis s/p flexible sigmoidoscopy with open left colectomy with takedown of splenic flexure and end-distal sigmoid colostomy 08/06/23
#Lactic acidosis due to ischemic colitis (likely as an unfortunate complication from the EVAR) - lactate normalized
#Leukocytosis
#Anemia - due to ischemic colitis as above
#A-fib with RVR s/p cardizem gtt and now amiodarone gtt
#Hx of COPD (moderate severity per spirometry from 2019)
#Alcohol use disorder c/b acute withdrawal
ICU delirium
Fever
NATALIE with acute renal infarcts
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
Hyperlipidemia
ED
PMR
hypertension
CAD s/p s/p stents (1993 + 1994), CABG x3
history of skin cancer
tobacco use disorder, PAD
NSVT s/p ablation
history of alcohol abuse
history of COPD
A-fib (diagnosed in 2017)
history of diverticulosis
history of NSTEMI
Plan:
ICU delirium, ongoing but stable
Off phenobarb, seroquel continued
Neuro and vascular checks per protocol also continue
RASS goal 0
Dilaudid PRN for pain
Psych following
Acute hypoxic RF s/p intubation,eExtubated 08/11/23, doing well
Stable on room air
Titrate FiO2 and PEEP to maintain SpO2 >88%
COPD history: resume home inhalers, stop nebs
Suspect acute HFpEF, proBNP 4920
CXR showing enlarged cardiac silhouette, last ECHO preserved function
Diurese as tolerated
Maintain MAP>70-90mmHg
Intermittent need for cardizem gtt; goal HR<110bpm
IV amio stopped
Continue IV lopressor 5mg q6hr
IV labetalol
Hep IV gtt--transitioned to Eliquis
Cards following for ongoing HR management
NPO post colon surgery, TPN continued
Ok for meds via tube
CRC following
NGT replaced for persistent vomiting, output has diminished
Continue Abx with Zosyn and completed 7 day course
Culture neg to date
Fever again, now on CFP/Flagyl, can likely stop after 5 days
Fever noted, repeat cultures and CT obtained--reviewed
Cultures remain negative to date
NATALIE with renal infarcts, stable
Creat trending up, plateau at 1.5
Now trending down
Follow UO
Monitor hemoglobin with serial CBC
Transfuse if needed to maintain Hb>7g/dL, plt>50k
Monitor blood sugars with goal BG 140-180mg/dL
Insulin supplementation if needed
Post-operative management as per vascular surgery and colorectal surgery - operation notes reviewed and recs appreciated
DVT prophylaxis recommended: Hep IV, on Eliquis at home
Stress ulcer ppx
Diagnostic Data
CXR 08-10-2023: Bilateral pulmonary opacities are not significantly changed compared to the previous chest radiograph from 08/09/2023.
CXR 08-09-2023: Increased bilateral airspace and interstitial compared to the chest radiograph from 08/08/2023 suggestive of worsening pulmonary edema versus pneumonia.
CXR 08-08-2023:Interval development of ill-defined perihilar airspace opacities as well as ill-defined opacity within the right lung base. No significant effusions. Findings suspicious for pulmonary edema versus less likely multifocal pneumonia.
Abd XR 08-06-2023: Feeding tube placement as described above. Moderate fecal material in the colon. Stable postsurgical change of the abdomen.
ECHO 05/09/23: Normal biventricular size and systolic function without regional wall motion abnormality. Estimated LVEF 50-55%. Mild concentric left ventricular hypertrophy. No significant valve disease.
Compared to 01/15/23: no significant change.
Prior Spirometry: 12/2019: FEV1/FVC: 45, FEV1: 1.71L (58% predicted), FVC: 3.76L (93% predicted), AKB25-51%: 18%
-----
Critical Care time 35 mins -- The patient is admitted for acute critical illness for the treatment of vital organ failure and/or prevention of further life-threatening conditions. Total care includes time spent in review of history, physical exam,
medications, hemodynamic/ventilator parameters, laboratory data, imaging and discussion with house staff, pharmacy, respiratory therapy, psychology clinician, and nursing.
Subjective Dataa
Subjective Data
Date of Service:
Date of Service: August 17, 2023
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
Subjective:
no clinical change
still remains on IV dilt as IV amio was stopped
confusion ongoing
Objective Data
Data Reviewed
Vital Signs / I&O / Oxygen:
Vital Signs
Temp Pulse Resp BP Pulse Ox
101.1 F H 81 17 134/76 98
08/17/23 04:02 08/17/23 06:00 08/17/23 06:00 08/17/23 06:00 08/17/23 06:00
Intake and Output
08/16/23 08/17/23 08/18/23
05:59 06:59 06:59
Intake Total
Output Total
Balance
SaO2 [A/C] 97
SaO2 98
Nasal Cannula flow liters per 2
minute
Physical Exam
General: Comfortable, Chills (negative), Poor Appetite and Other (mitts/restraints)
HEENT: Normocephalic and Anicteric
Cardiovascular: S1-S2, Irregular Rhythm (tachycardic) and Peripheral Edema (negative)
Respiratory: Wheeze (negative), Crackles (negative), Rhonchi (Bilaterally (R >L)) and Non-Labored Respirations
GI: Soft, Non Distended, Tender (ashlyn-umbilical region without peritoneal signs), NG Tube and Other (Colostomy in place with small amount of blood seen in bag; no clots seen)
Neurology: Awake, Alert, Oriented (to self, answers but at times inappropriate), No Motor Deficits, Tremors (negative) and Other (confused, hallucinating)
Skin: Warm, Dry and Other (toes are cool to touch bilaterally)
Labs/Micro/Reports
Lab Data
08/17/23 04:11
08/17/23 04:11
Microbiology
08/11/23 13:18 Blood/Venous Blood Culture - Final
No Growth - Final Report
08/14/23 10:03 Blood/Venous Blood Culture - Preliminary
No Growth in 48 hours- Final report to follow
08/14/23 09:54 Blood/Venous Blood Culture - Preliminary
No Growth in 48 hours- Final report to follow
08/10/23 16:41 Blood/Venous Blood Culture - Final
No Growth - Final Report
08/15/23 10:07 Feces/Stool C. difficile GDH Antigen & Toxins - Final
Negative for toxigenic C.difficile
08/14/23 09:55 Urine Urine Culture - Final
NO GROWTH
--- NOTE | 2023-08-17 07:32 | W.PN.VS ---
Today's Communication / Plan
-
as above
Assessment/Plan
-
Plan/ POD# 12 PMEG/bilat CFAE. Post op course c/b ischemic colitis requiring colectomy/ostomy.
cont anticoag/antiplatelet
ppi drip
tpn, nutrition profile friday
monitor uop closely. DC Balbuena cath and transition to condom cath. continue strict i/o's
cont antipsychotics and monitor closely in icu
? DC NGT today. Will d/w gen surgery
Subjective Data
-
Date of Service: August 17, 2023
Agitation and delirium continues
Infectious workup negative to date
Comfortable this AM
No complaints
HR in the 80's
Objective Data
-
Vital Signs
Temp Pulse Resp BP Pulse Ox
101.1 F H 81 17 134/76 98
08/17/23 04:02 08/17/23 06:00 08/17/23 06:00 08/17/23 06:00 08/17/23 06:00
Intake and Output
08/16/23 08/17/23 08/18/23
05:59 06:59 06:59
Intake Total
Output Total
Balance
Intake:
IV fluids (Total)
Cardizem
Heparin
KCL rider
Protonix
amiodarone
IV piggybacks
TPN/PPN
Feeding tube flush amount
Amount instilled into GI Tube (
Total)
[place] Sump
Blood Product Amount Infused (
mL)
Packed Rbc Leukoreduced Unit
[id number]
Packed Rbc Leukoreduced Unit
[id number]
Output:
Liquid stool amount
Colostomy
Drain Output (Total)
Right Lower Abdomen Damian-
Tello
Gastrointestinal tube output (
Total)
[place] Sump
Urine, Balbuena
Lab Results
08/17/23 04:11
08/17/23 04:11
Calcium 8.9 mg/dl (8.4-10.2) 08/17/23 04:11
Phosphorus 3.1 mg/dl (2.5-4.5) 08/16/23 03:38
Magnesium 2.4 mg/dl (1.6-2.3) H 08/16/23 03:38
Total Bilirubin 0.6 mg/dl (0.2-1.3) 08/17/23 04:11
Direct Bilirubin 0.5 mg/dl (0.0-0.4) H 08/06/23 03:27
AST 79 U/L (17-59) H 08/17/23 04:11
ALT 68 U/L (0-50) H 08/17/23 04:11
Alkaline Phosphatase 158 U/L (38-126) H 08/17/23 04:11
Total Protein 5.5 g/dl (6.3-8.2) L 08/17/23 04:11
Albumin 2.3 g/dl (3.5-5.0) L 08/17/23 04:11
Physical Exam
-
Agitation
Mitts bilat UE's
Abd flat, soft, NT
stoma productive
Incisions clean/dry x 3
Ext warm
[2023-08-17] MEDS: SPIRIVA RESPIMAT 2.5 MCG INH (07:53)
[2023-08-17] MEDS: LOW STRENGTH ASPIRIN 81 MG TUBE (07:56)
[2023-08-17] MEDS: FOLVITE 1 MG TUBE (07:56)
[2023-08-17] MEDS: ELIQUIS 5 MG TUBE ×2 (07:56→19:42)
[2023-08-17] MEDS: LOPRESSOR 25 MG TUBE ×3 (07:56→22:12)
[2023-08-17] MEDS: VITAMIN B-12 100 MCG TUBE (07:56)
[2023-08-17] MEDS: FLAGYL 500 MG TUBE ×3 (07:56→22:12)
[2023-08-17] MEDS: NSS (PRESERVATIVE FREE) IV (07:57)
--- NOTE | 2023-08-17 08:15 | PTCARENOTE ---
Rec'd pt at 0700. Pt restless in bed, confused, oriented to self only. Monitor Afib 80's on Cardizem gtts at 10mg/hr. Lungs dim/sct coarseness at times with moist productive cough for thick parks sputum. NGT in place, clamped. Midline abdominal
incision BRENDON with renny intact/approximated. Right groin dressing in place, right PRAKASH with small amt serosand drainage. Left groin with STEPHEN dressing in place. Left colotomy with loose green/brown stool, stoma flush/pink. Balbuena draining smiley
urine. Pt requires frequent repositioning and reorientation.
--- NOTE | 2023-08-17 09:57 | W.PN.CD ---
Today's Communication / Plan
-
- Rate control with Dilt gtt
- Expect to have GI start working and need for Dilt gtt will be reduced.
Impression / Plan
-
Complex vascular surgery on 08/06/2023 for AAA/iliac disease/PAD
Ischemic colitis, postop vascular surgery S/P colostomy, flexible sigmoidoscopy and colectomy with a colostomy on 08/06/[address] Padilla
Fever, leukocytosis, per primary team
Permanent atrial fibrillation
-Transition from intravenous Labetalol to metoprolol tartrate (needs to be crushed)
-Restarted apixaban 08/15/23
-Amiodarone stopped 08/15/23
- AF with RVR noted
- Rates are xl013v to 130s.
- s/p Amiodarone bolus
- on Diltiazem gtt - rate are acceptabel now.
- Metoprolol started via NG tube with unclear absorption sheila with RVR noted. Will give IV dilt and titrate based on metoprolol effect.
Anemia, 2 units PRBC by primary
- HGb responded from 7.4 to 9.0
- stable now around 8.8
HTN
NSVT, normal LVEF, continue BB
Abnormal troponin, peak 0.043, likely nonischemic myocardial injury in the setting of acute illness
CAD, PCI with stenting 1993 & 1994, CABG 2016, stable without CP
Prior CVAs
HLD, continue rosuvastatin 40mg when bowel function returns
Current smoker, cessation recommended
Subjective:
He is confused. Appears comfortable. denies any pain.
Echo 05/2023: LVEF 50-55%
Physical Exam
Vital Signs/Labs
Vital Signs
Temp Pulse Resp BP Pulse Ox
100.4 F H 91 24 123/69 98
08/17/23 07:42 08/17/23 07:54 08/17/23 07:54 08/17/23 07:10 08/17/23 07:54
08/16/23 08/17/23 08/18/23
05:59 06:59 06:59
Actual Weight
08/17/23 04:11
08/17/23 04:11
PT 15.4 Sec (11.4-14.6) H 08/06/23 03:27
INR 1.21 08/06/23 03:27
APTT Cancelled 08/15/23 12:00
Magnesium 2.4 mg/dl (1.6-2.3) H 08/16/23 03:38
Triglycerides 208 mg/dl (10-149) H 08/11/23 13:18
08/11/23
04:15
Sak-Z-Ahtwatjilvr Pept 4920
Physical Exam
Constitutional: No acute distress and Comfortable
EENT: Anicteric and Moist mucous membranes
Cardiovascular: Rhythm/rate is irregular, JVD present and Systolic murmur present
Respiratory: Respiratory effort normal, Crackles Present and Rhonchi Present
GI: Soft, Non tender and Normal bowel sounds
Neuro/Psych: Other (awake but confused. )
Data Reviewed
-
Date of Service: August 17, 2023
Medical Decision Making: Reviewed Test Results, Test Interpretation and Review of Case with other Provider
EKG: Tracing Personally Visualized and interpreted
Labs: Labs Reviewed by me
Old Records: Reviewed
Critical Care Time (in minutes): 35
--- NOTE | 2023-08-17 10:17 | W.PN.GS2 ---
Today's Communication / Plan
-
-- Clamp NGT, maintain NGT for PO meds, MESSAGE BROKER DEVELOPER consult
-- PPI gtt
-- Renew TPN for today
-- Anticoagulation per Vascular, stable Hb after transfusion, repeat CBC daily, ideally DC ASA with concern for gastritis given NSAID but benefits from cardiovascular standpoint outweigh risks
Assessment / Plan
-
08/06/2023 (POD#11) - open left colectomy with takedown of splenic flexure and end distal sigmoid colostomy, ischemic colitis
Stoma viable and producing air and small stool. Repeat CT without any concern for obstruction, leak, or ongoing ischemia of the bowel. Intermittent coffee grounds from NG tube, most likely related to NGT trauma from suction and/or stress
gastritis. PPI gtt. HB and HD stable. Okay to remove NGT from surgical standpoint, will maintain off function for now as there is some concerns for ability to tolerate oral meds. MESSAGE BROKER DEVELOPER consult placed. Ideally DC ASA with concern for gastritis
given NSAID but benefits from cardiovascular standpoint outweigh risks
Leukocytosis down, fevers likely from infarcted kidney, plan for conservative management given clinical and medical frailty and risks for re-operation.
-- Clamp NGT, maintain NGT for PO meds, MESSAGE BROKER DEVELOPER consult
-- PPI gtt
-- Renew TPN for today
-- Continue Cefepime, Flagyl
-- Anticoagulation per Vascular, stable Hb after transfusion, repeat CBC daily, ideally DC ASA with concern for gastritis given NSAID but benefits from cardiovascular standpoint outweigh risks
Subjective Data
-
Date of Service: August 17, 2023
Delirium improved though somewhat present. Denies any abdominal pain. No nausea or vomiting. No dizziness or lightheadedness. Reports from nursing of NGT with some darker coffee-ground's upon returning NGT to suction, cleared with flushing, no
bright red blood.
Objective Data
-
Intake and Output
08/16/23 08/17/23 08/18/23
05:59 06:59 06:59
Intake Total 332 / 332
Output Total 125 / 125
Balance 207 / 207
Intake:
IV fluids (Total) 80 / 80
Cardizem 40 / 40
Heparin
KCL rider
Protonix 40 / 40
amiodarone
IV piggybacks
TPN/PPN 252 / 252
Feeding tube flush amount
Amount instilled into GI Tube (
Total)
[place] Sump
Blood Product Amount Infused (
mL)
Packed Rbc Leukoreduced Unit
[id number]
Packed Rbc Leukoreduced Unit
[id number]
Output:
Liquid stool amount 125 / 125
Colostomy 125 / 125
Drain Output (Total)
Right Lower Abdomen Damian-
Tello
Gastrointestinal tube output (
Total)
[place] Sump
Urine, Balbuena
Vital Signs
Temp Pulse Resp BP Pulse Ox
100.4 F H 87 23 154/75 95
08/17/23 07:42 08/17/23 10:00 08/17/23 10:00 08/17/23 10:00 08/17/23 10:00
Lab Results
08/17/23 04:11
08/17/23 04:11
Calcium 8.9 mg/dl (8.4-10.2) 08/17/23 04:11
Phosphorus 3.1 mg/dl (2.5-4.5) 08/16/23 03:38
Magnesium 2.4 mg/dl (1.6-2.3) H 08/16/23 03:38
Total Bilirubin 0.6 mg/dl (0.2-1.3) 08/17/23 04:11
Direct Bilirubin 0.5 mg/dl (0.0-0.4) H 08/06/23 03:27
AST 79 U/L (17-59) H 08/17/23 04:11
ALT 68 U/L (0-50) H 08/17/23 04:11
Alkaline Phosphatase 158 U/L (38-126) H 08/17/23 04:11
Total Protein 5.5 g/dl (6.3-8.2) L 08/17/23 04:11
Albumin 2.3 g/dl (3.5-5.0) L 08/17/23 04:11
Physical Exam
-
Gen: NAD
HEENT: minimal dark bilious
Abd: soft, NT, minimal distension, non-peritoneal, ostomy PPV - darker tarry stool, no BRB, flatus, PRAKASH serosang
--- NOTE | 2023-08-17 11:08 | W.PN.UPDATE ---
Update Note
Progress Note Update
Chart reviewed. Psychiatry follow up for agitated ICU delirium. Today patient is less irritable and better able to answer my questions. He responds to his name. He knows he is at [facility] and that the month is August and year 2023. He says
he is feeling better. Still confused and at times nonsensical but improved at this time. Antipsychotic switched from Risperdal to Seroquel 25mg q8 2 days ago.
A/P- 78 yo male with ICU delirium, continues to wax/wane with some improvement noted today. Will continue standing Seroquel for now and see if he continues to slowly respond. Need to monitor qtc for prolongation while on an antipsychotic. Please do
so when he is calm enough to cooperate. If no further improvement will consider adding depakote to regimen. Psychiatry will continue to follow.
--- NOTE | 2023-08-17 11:26 | PTOTSP ---
Clinical Swallow Evaluation
78M p/w an impaired oropharyngeal swallow characterized by overt s/s of aspiration/penetration with all textures trialed this date. Aspiration risk is increased 2/2 recent intubation w/ current AMS. Recommend continue with NPO x NGT. May attempt
essential meds crushed in puree.
Recommendations:
1. NPO x DHT
2. Essential meds crushed in puree
3. Oral care 3-4x/day
4. Aspiration precautions
5. ARTILLERY OFFICER service to continue to follow and advance diet as able
[2023-08-17 12:14] LABS: Glucose - Point of Care 133 mg/dl (70-99)
[2023-08-17] MEDS: CARDIZEM 125 IV (12:23)
--- NOTE | 2023-08-17 13:10 | PTCARENOTE ---
Family in to visit, updated. Assessment unchanged.
--- NOTE | 2023-08-17 17:00 | PTCARENOTE ---
Pt restless in bed, left STEPHEN dressing half off of pt and condom cath also removed by pt-legs up in the air at times or trying to hang them over siderails. New condom cath applied, left STEPHEN dressing removed. Bilat groin incisions SHANK FAKER. Right PRAKASH
drain site with new dressing applied. Midline incision SHANK FAKER.
[2023-08-17 18:25] LABS: Glucose - Point of Care 151 mg/dl (70-99)
[2023-08-17] MEDS: DILAUDID 0.5 MG IV (20:13)
[2023-08-17] MEDS: Parenteral Nutrition, Central 1510 IV (21:01)
[2023-08-17] MEDS: DILAUDID 1 MG IV (22:21)
--- NOTE | 2023-08-17 22:58 | PTCARENOTE ---
Rec'd care of patient from previous RN @ 1845. Pt alternating between calm and restless. Shaking arms and grunting in bed. Rating abdominal pain 02/16. PRN Dilaudid administered. VSS. Cardizem, PPI and TPN gtts infusing through RIJ. Full assessment
and care as charted on worklist.
[2023-08-17 23:49] LABS: Glucose - Point of Care 169 mg/dl (70-99)
[2023-08-18] VITALS (24 sets, daily range): BP systolic 93–155; BP diastolic 56–89; BMI 23.9
--- NOTE | 2023-08-18 00:34 | PTCARENOTE ---
Pt resting comfortably. Abdominal pain under control at current time. VSS. Cardizem gtt titrated down to 5mg/hr. Afib, rate in the 80's.
[2023-08-18] MEDS: SEROQUEL 25 MG TUBE ×2 (00:42→07:58)
[2023-08-18] MEDS: CARDIZEM 125 IV (02:36)
[2023-08-18] MEDS: DILAUDID 0.5 MG IV ×4 (03:16→20:57)
[2023-08-18] MEDS: MAXIPIME 1000 MG IV ×3 (03:16→20:55)
[2023-08-18] MEDS: STERILE WATER FOR INJECTION 10 ML IV ×3 (03:16→20:55)
[2023-08-18 04:05] LABS: Hematocrit 25.3 % (39.0-52.0); Hemoglobin 8.6 g/dL (13.0-18.0); Mean Corpuscular Volume 91.3 fL (80.0-94.0); Mean Platelet Volume 11.9 fL (7.4-10.4); Platelet Count 360 10^3/uL (130-400); Red Blood Cell Count 2.77 10^6/uL (4.70-6.10); Red Cell Dist. Width 15.5 % (11.5-14.5); White Blood Cell Count 17.5 10^3/uL (4.8-10.8)
[2023-08-18 04:31] LABS: ALT (SGPT) 61 U/L (0-50); AST (SGOT) 70 U/L (17-59); Albumin 2.3 g/dl (3.5-5.0); Alkaline Phosphatase 136 U/L (38-126); Blood Urea Nitrogen 46 mg/dl (9-20); Calcium 8.8 mg/dl (8.4-10.2); Carbon Dioxide 23 mmol/L (22-30); Chloride 114 mmol/L (98-107); Estimated Creatinine Clearance 39 ml/min; Glucose 115 mg/dl (70-99); Magnesium 2.5 mg/dl (1.6-2.3); Phosphorus 3.4 mg/dl (2.5-4.5); Potassium 4.2 mmol/L (3.5-5.1); Sodium 141 mmol/L (135-145); Total Bilirubin 0.7 mg/dl (0.2-1.3); Total Protein 5.5 g/dl (6.3-8.2); Triglycerides 154 mg/dl (10-149); eGFR 43.56
[2023-08-18 04:37] LABS: Prealbumin (Transthyretin) 8.8 mg/dl (17.6-36.0)
--- NOTE | 2023-08-18 04:44 | PTCARENOTE ---
Pt aware he is at [facility] and had two surgeries. Continues to be anxious and restless when in pain. Pulling off condom catheter and saying he needs to go outside. Emotional support and reassurance provided. PRN Dilaudid administered.
Complete bed bath performed. Pt resting comfortably. VSS. AM labs sent.
[2023-08-18 06:35] LABS: Glucose - Point of Care 123 mg/dl (70-99)
[2023-08-18] MEDS: NOVOLOG FLEXPEN-LOW RESISTANCE SC ×2 (06:35→17:10)
[2023-08-18] MEDS: SPIRIVA RESPIMAT 2.5 MCG 2 PUFF INH (07:29)
[2023-08-18] MEDS: FLAGYL 500 MG TUBE (07:58)
[2023-08-18] MEDS: ELIQUIS 5 MG TUBE (07:58)
[2023-08-18] MEDS: VITAMIN B-12 100 MCG TUBE (07:58)
[2023-08-18] MEDS: LOPRESSOR 25 MG TUBE (07:58)
[2023-08-18] MEDS: FOLVITE 1 MG TUBE (07:58)
[2023-08-18] MEDS: LOW STRENGTH ASPIRIN 81 MG TUBE (07:58)
[2023-08-18] MEDS: NSS (PRESERVATIVE FREE) IV (07:59)
[2023-08-18] MEDS: PROTONIX 100 IV (07:59)
--- NOTE | 2023-08-18 08:00 | PTCARENOTE ---
Received pt @ change of shift. Confused/restless/anxious/hallucinating @ x's w b/l soft limb/mitts/4 rails- see flow sheet. Pt. frequently reoriented. SpO2 96% on RA. P cough w thick/bloody sputum, oral hygiene provided. L colostomy in place w
dark brown/liq stool. R PRAKASH w scant amt of ser/sang drainage. NGT clamped, used for meds. #25 CC replaced, draining yellow urine. Midline abd w renny/approximated/BRENDON. R/L groin incisions w renny/sutures/approximated/HEAVY MOBILE EQUIPMENT OPERATOR R IJ in place a
Cardizem/PPI/TPN infusions-see flow sheet. R DL PICC patent, dressing c/d/i. Pt. repositioned. Safe environment maintained.
--- NOTE | 2023-08-18 08:24 | W.PN.VS ---
Addendum entered and electronically signed by Linwood Balbuena III, MD 08/18/23 11:24:
This patient was seen and examined with BEBA Leiva. I agree with the history and physical exam as well as the assessment and plan.
Signed:
Linwood Balbuena III, MD
[facility] Vascular Surgery
[phone] (cell)
Original Note:
Today's Communication / Plan
-
Seen and assessed with Dr Balbuena
Assessment/Plan
-
Plan/ POD# 13 PMEG/bilat CFAE. Post op course c/b ischemic colitis requiring colectomy/ostomy.
KEEP groin sites covered with waterproof dressings
Cont ASA/eliquis
PPI/TPN
monitor uop closely. Replace condom cath as needed. 60cc/hr until midnight, 25cc/hr since but pt did pull off catheter and void in the bed
Appreciate psych
NGT clamped, DC per surgery, speech eval once removed
Subjective Data
-
Date of Service: August 18, 2023
Pt seen at bedside this am. Pt clearer this am. Aware of where he is, the month and year. Cannot recall . Calm. Pt continues to pull off condom cath and dressings when confused. Mitts in place
Objective Data
-
Vital Signs
Temp Pulse Resp BP Pulse Ox
98.8 F 107 22 142/70 96
08/18/23 07:31 08/18/23 08:00 08/18/23 08:00 08/18/23 08:00 08/18/23 08:10
Intake and Output
08/17/23 08/18/23 08/19/23
06:59 06:59 06:59
Intake Total 2247 / 2325 216 / 216
Output Total 860 / 860
Balance 1387 / 1465 216 / 216
Intake:
IV fluids (Total) 445 / 460 30 30
Cardizem 205 / 210
Protonix 240 / 250
IV piggybacks
TPN/PPN 1512 / 1575 126 / 126
Amount instilled into GI Tube ( 290 / 290 60 / 60
Total)
Jack Sump 290 / 290 60 / 60
Output:
Liquid stool amount 125 / 125
Colostomy 125 / 125
Drain Output (Total)
Right Lower Abdomen Damian-
Tello
Gastrointestinal tube output (
Total)
Jack Sump
Urine, Balbuena
Urine, Voided 725 / 725
Other:
How many times incontinent 1
MODERATE amount urine
How many times incontinent 1
SATURATED amount urine
Lab Results
08/18/23 03:26
08/18/23 03:26
Calcium 8.8 mg/dl (8.4-10.2) 08/18/23 03:26
Phosphorus 3.4 mg/dl (2.5-4.5) 08/18/23 03:26
Magnesium 2.5 mg/dl (1.6-2.3) H 08/18/23 03:26
Total Bilirubin 0.7 mg/dl (0.2-1.3) 08/18/23 03:26
Direct Bilirubin 0.5 mg/dl (0.0-0.4) H 08/06/23 03:27
AST 70 U/L (17-59) H 08/18/23 03:26
ALT 61 U/L (0-50) H 08/18/23 03:26
Alkaline Phosphatase 136 U/L (38-126) H 08/18/23 03:26
Total Protein 5.5 g/dl (6.3-8.2) L 08/18/23 03:26
Albumin 2.3 g/dl (3.5-5.0) L 08/18/23 03:26
Physical Exam
-
Calm
Mitts bilat UE's
NGT clamped
Abd flat, soft, NT
stoma productive
Incisions clean/dry x 3, groin sites DOCUMENTATION ANALYST. Cleaned with betadine, redressed with aquacels. Abd site DOCUMENTATION ANALYST
Ext warm
PRAKASH intact, minimal output
--- NOTE | 2023-08-18 09:10 | PTOTSP ---
Speech Language Pathology
Pt seen for dysphagia tx. P.O. trials of ice chips, thin liquids via straw, puree, and regular solids provided. Prolonged mastication noted. Pt edentulous, but stated he is typically able to chew without difficulty and he denied having dentures.
Adequate oral phase otherwise. Brief throat clear with extremely large sip of thin liquid via straw. Tolerated small single straw sips of liquids without overt signs of aspiration.
Recommend:
(1) Advance up to IDDSI Level 5 (Minced/moist) and Thin liquids pending CRS clearance
(2) Aspiration precautions: single straw sips (pinch straw for small sips), sit upright, full supervision
(3) Meds whole in puree
(4) MIXED CROP AND LIVESTOCK FARM WORKER to continue to follow
--- NOTE | 2023-08-18 10:26 | W.PN.CD ---
Today's Communication / Plan
-
IV Dilt for now. Once GI tract better move to PO metoprolol
Enteral Eliquis
Impression / Plan
-
Complex vascular surgery on 08/06/2023 for AAA/iliac disease/PAD
Ischemic colitis, postop vascular surgery S/P colostomy, flexible sigmoidoscopy and colectomy with a colostomy on 08/06/[address] Padilla
Fever, leukocytosis, per primary team
Permanent atrial fibrillation
-Transition from intravenous Labetalol to metoprolol tartrate (needs to be crushed)
-Restarted apixaban 08/15/23
-Amiodarone stopped 08/15/23
- AF rate improved on IV dilt .
Anemia, total 6 U this admit
Left kidney infarction by CTA 08/14/2023
HTN
NSVT, normal LVEF, continue BB
Abnormal troponin, peak 0.043, likely nonischemic myocardial injury in the setting of acute illness
CAD, PCI with stenting 1993 & 1994, CABG 2016, stable without CP
Prior CVAs
HLD, continue rosuvastatin 40mg when bowel function returns
Current smoker, cessation recommended
Deliruim, seems improved
Subjective:
Less confused. Appears comfortable. denies any pain.
Echo 05/2023: LVEF 50-55%
Physical Exam
Vital Signs/Labs
Vital Signs
Temp Pulse Resp BP Pulse Ox
98.8 F 107 22 142/70 96
08/18/23 07:31 08/18/23 08:00 08/18/23 08:00 08/18/23 08:00 08/18/23 08:10
08/17/23 08/18/23 08/19/23
06:59 06:59 06:59
Actual Weight 75.7 kg
08/18/23 03:26
08/18/23 03:26
PT 15.4 Sec (11.4-14.6) H 08/06/23 03:27
INR 1.21 08/06/23 03:27
APTT Cancelled 08/15/23 12:00
Magnesium 2.5 mg/dl (1.6-2.3) H 08/18/23 03:26
Triglycerides 154 mg/dl (10-149) H 08/18/23 03:26
08/11/23
04:15
Bdw-C-Latiqybidsy Pept 4920
Physical Exam
Constitutional: No acute distress
EENT: Anicteric
Cardiovascular: Rhythm/rate is irregular and S1S2 is normal
Respiratory: Respiratory effort normal and Lungs clear to auscul.
GI: Soft and Distention absent
Data Reviewed
-
Date of Service: August 18, 2023
--- NOTE | 2023-08-18 10:39 | W.PN.INTV ---
Today's Communication / Plan
Recommendations
Continue postoperative care
Continue antibiotic for 2 more days and discontinue
Continue to monitor renal function
Continue TPN
Daily electrolytes
Physical therapy as able
Continue Seroquel
Avoid sedative if possible.
Transfer to intermediate care unit
Assessment
-
78-year-old male with a PMHx of PAD s/p kissing iliac stents bilaterally, AAA, COPD, tobacco use disorder, CAD s/p CABG x3 and A-fib s/p multiple failed cardioversions who presents with elective bilateral femoral endarterectomy and vascular
intervention for AAA. s/p bilateral femoral cutdowns, femoral endarterectomies with patch angioplasty and then eventually retrograde balloon angioplasty with stenting of the left iliac artery and endovascular repair of his aortic aneurysm on
08/05/23. Patient is transferred postoperatively to the ICU and sample card maker service is consulted for additional management/recommendations.
Impression:
#Acute hypoxic respiratory failure s/p intubation on mechanical ventilation - likely combo of PNA and pulmonary edema, I suspect mainly the former though
s/p intubation 08/09/23
#Bilateral femoral artery stenosis s/p cutdown with endarterectomy with bovine patch angioplasty & left iliac artery stenting 08/05/23
#AAA s/p EVAR using physician modified aortic endograft 08/05/23
#Rectal bleeding/BRBPR due to ischemic colitis s/p flexible sigmoidoscopy with open left colectomy with takedown of splenic flexure and end-distal sigmoid colostomy 08/06/23
#Lactic acidosis due to ischemic colitis (likely as an unfortunate complication from the EVAR) - lactate normalized
#Leukocytosis
#Anemia - due to ischemic colitis as above
#A-fib with RVR s/p cardizem gtt and now amiodarone gtt
#Hx of COPD (moderate severity per spirometry from 2019)
#Alcohol use disorder c/b acute withdrawal
ICU delirium
Fever
NATALIE with acute renal infarcts
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
Hyperlipidemia
ED
PMR
hypertension
CAD s/p s/p stents (1993 + 1994), CABG x3
history of skin cancer
tobacco use disorder, PAD
NSVT s/p ablation
history of alcohol abuse
history of COPD
A-fib (diagnosed in 2016)
history of diverticulosis
history of NSTEMI
Plan:
ICU delirium, ongoing but stable, patient is pleasant, following commands.
Still confused.
Continue seroquel continued
Neuro and vascular checks per protocol also continue
Dilaudid PRN for pain
Psych following
-
Acute hypoxic RF s/p intubation,eExtubated 08/11/23.
Stable on room air
Coughing on demand, clearing secretions.
Not bronchospastic on exam.
COPD history: resume home inhalers.
-
Heart failure with preserved ejection fraction. Initial proBNP was elevated.
CXR showing enlarged cardiac silhouette, last ECHO preserved function
Status post diuresis. Continue to follow volume status.
Currently on a Cardizem drip low-dose until able to tolerate oral route. Defer to cardiology.
Continue beta-domingo orally.
Continue Eliquis, tolerating without bleeding.
Cards following for ongoing HR management
NPO post colon surgery, TPN continued
Ok for meds via tube
CRC following, hopefully can discontinue NG tube soon.
Check daily electrolytes.
Continue Abx with Zosyn and completed 7 day course
Culture neg to date
Fever again, now on CFP/Flagyl, can likely stop after 5 days-08/20/2023
Leukocytosis improving.
Fever noted, repeat cultures and CT obtained--reviewed
Cultures remain negative to date
NATALIE with renal infarcts.
creatinine trending slightly higher.
Continue to monitor.
Will avoid nephrotoxins.
Follow UO
Monitor hemoglobin with serial CBC
Transfuse if needed to maintain Hb>7g/dL, plt>50k
Monitor blood sugars with goal BG 140-180mg/dL
Insulin supplementation if needed
Post-operative management as per vascular surgery and colorectal surgery.
DVT prophylaxis recommended: on Eliquis.
Stress ulcer ppx
At this point, I will transfer to IMU status.
Critical care team will sign off.
Pulmonary will continue to follow briefly.

Diagnostic Data
CXR 08-10-2023: Bilateral pulmonary opacities are not significantly changed compared to the previous chest radiograph from 08/09/2023.
CXR 08-09-2023: Increased bilateral airspace and interstitial compared to the chest radiograph from 08/08/2023 suggestive of worsening pulmonary edema versus pneumonia.
CXR 08-08-2023:Interval development of ill-defined perihilar airspace opacities as well as ill-defined opacity within the right lung base. No significant effusions. Findings suspicious for pulmonary edema versus less likely multifocal pneumonia.
Abd XR 08-06-2023: Feeding tube placement as described above. Moderate fecal material in the colon. Stable postsurgical change of the abdomen.
ECHO 05/09/23: Normal biventricular size and systolic function without regional wall motion abnormality. Estimated LVEF 50-55%. Mild concentric left ventricular hypertrophy. No significant valve disease.
Compared to 01/15/23: no significant change.
Prior Spirometry: 12/2019: FEV1/FVC: 45, FEV1: 1.71L (58% predicted), FVC: 3.76L (93% predicted), [id number]%: 18%
-----
Subjective Dataa
Subjective Data
Date of Service:
Date of Service: August 18, 2023
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
Subjective:
Continues to be intermittently confused but pleasant.
He denies any chest pain or shortness of breath.
Following simple commands.
Review of Systems
Cardiopulmonary: Dyspnea (n)
GI: Abdominal Pain (n), Nausea (n) and Vomiting
Neuro: Headache (n)
Objective Data
Data Reviewed
Vital Signs / I&O / Oxygen:
Vital Signs
Temp Pulse Resp BP Pulse Ox
98.8 F 107 22 142/70 96
08/18/23 07:31 08/18/23 08:00 08/18/23 08:00 08/18/23 08:00 08/18/23 08:10
Intake and Output
08/17/23 08/18/23 08/19/23
06:59 06:59 06:59
Intake Total 2247 / 2325 294 / 294
Output Total 860 / 860
Balance 1387 / 1465 294 / 294
SaO2 [A/C] 97
SaO2 96
Nasal Cannula flow liters per 2
minute
Physical Exam
General: Comfortable, Chills (negative), Poor Appetite and Other (mitts/restraints)
HEENT: Normocephalic and Anicteric
Cardiovascular: S1-S2, Irregular Rhythm (tachycardic) and Peripheral Edema (negative)
Respiratory: Wheeze (negative), Crackles (negative), Rhonchi (Bilaterally (R >L)) and Non-Labored Respirations
GI: Soft, Non Distended, Tender (ashlyn-umbilical region without peritoneal signs), NG Tube and Other (Colostomy in place with small amount of blood seen in bag; no clots seen)
Neurology: Awake, Alert, Oriented (to self, answers but at times inappropriate), No Motor Deficits, Tremors (negative) and Other (confused, hallucinating)
Skin: Warm, Dry and Other (toes are cool to touch bilaterally)
Labs/Micro/Reports
Lab Data
08/18/23 03:26
08/18/23 03:26
Microbiology
08/14/23 10:03 Blood/Venous Blood Culture - Preliminary
No Growth in 4 days- Final report to follow
08/14/23 09:54 Blood/Venous Blood Culture - Preliminary
No Growth in 4 days- Final report to follow
08/11/23 13:18 Blood/Venous Blood Culture - Final
No Growth - Final Report
08/10/23 16:41 Blood/Venous Blood Culture - Final
No Growth - Final Report
08/15/23 10:07 Feces/Stool C. difficile GDH Antigen & Toxins - Final
Negative for toxigenic C.difficile
08/14/23 09:55 Urine Urine Culture - Final
NO GROWTH
[2023-08-18 10:48] LABS: Glucose - Point of Care 160 mg/dl (70-99)
[2023-08-18] MEDS: NOVOLOG FLEXPEN-LOW RESISTANCE 1 UNITS SC (11:13)
--- NOTE | 2023-08-18 11:18 | W.PN.CRS1 ---
Today's Communication / Plan
-
check residuals then d/c ngt
clears
tpn for another day
Assessment/Plan
-
Assessment: Stoma viable and producing air and small stool.� Repeat CT without any concern for obstruction, leak, or ongoing ischemia of the bowel.� Intermittent coffee grounds from NG tube, most likely related to NGT trauma from suction and/or
stress gastritis. PPI gtt.� HB and HD stable.� Okay to remove NGT from surgical standpoint, will maintain off function for now as there is some concerns for ability to tolerate oral meds.� DEBONE PROCESSING SUPERVISOR consult placed.� Ideally DC ASA with concern for
gastritis given NSAID but benefits from cardiovascular standpoint outweigh risks
Leukocytosis down, fevers likely from infarcted kidney, plan for conservative management given clinical and medical frailty and risks for re-operation.
POD#12 - open left colectomy with takedown of splenic flexure and end distal sigmoid colostomy, ischemic colitis
1. Vitals normal. WBC down to 17.5. from 22.4.
2. Check residuals and then d/c NGT if okay.
3. Start on clears. Discussed with DEBONE PROCESSING SUPERVISOR.
4. Continue TPN for today.
5. Continue antibiotics per primary team.
6. Anticoagulation per Vascular.
Subjective Data
Procedure
08/06/2023- open left colectomy with takedown of splenic flexure and end distal sigmoid colostomy, ischemic colitis
Subjective Data
Date of Service: August 18, 2023
Patient states he feels okay. He has no complaints.
Objective Data
-
Vital Signs
Temp Pulse Resp BP Pulse Ox
98.7 F 94 25 139/82 98
08/18/23 11:04 08/18/23 10:30 08/18/23 10:30 08/18/23 10:00 08/18/23 10:30
Intake & Output
08/17/23 08/18/23 08/19/23
06:59 06:59 06:59
Intake Total 2247 / 2325 372 / 372
Output Total 860 / 860
Balance 1387 / 1465 372 / 372
Intake:
IV fluids (Total) 445 / 460 60 / 60
Cardizem 205 / 210 20 / 20
Protonix 240 / 250 40 / 40
IV piggybacks
TPN/PPN 1512 / 1575 252 / 252
Amount instilled into GI Tube ( 290 / 290 60 / 60
Total)
[place] Sump 290 / 290 60 / 60
Output:
Liquid stool amount 125 / 125
Colostomy 125 / 125
Drain Output (Total)
Right Lower Abdomen Damian-
Tello
Gastrointestinal tube output (
Total)
[place] Sump
Urine, Balbuena
Urine, Voided 725 / 725
Other:
How many times incontinent 1
MODERATE amount urine
How many times incontinent 1
SATURATED amount urine
Lab Results
08/18/23 03:26
08/18/23 03:26
Physical Exam
-
General: No Acute Distress and AOx3
Abdomen: Soft, Non Distended, Non Tender and Other (colostomy warm and pink)
Wound: Dressing in Place
Incision: Clear, Dry, Intact
--- NOTE | 2023-08-18 13:23 | PTCARENOTE ---
Diet advanced per GI/speech. Pt. able to drink 1 broth and few bites of jello. No n/v. NGT removed per orders. Remains on TPN per orders. Pt. remains restless/confused. Pulled off colostomy; replaced. Hygiene care provided. Bed alarm active.
--- NOTE | 2023-08-18 13:28 | W.PN.UPDATE ---
Update Note
Progress Note Update
Pt reclining in bed in upright position, alert, partially oriented, calm, cooperative. Pt in hand mitts. No agitation. Pt interacting, able to joke. No signs of side effects/sedation on Seroquel. QTc 455 on 08/15.
Imp: delirium, improving. No current agitation on Seroquel 25 mg Q 8 hrs
Rec: continue current Seroquel
will follow
--- NOTE | 2023-08-18 16:10 | CM ---
Patient's diet advancing. Plan remains for BV when stable.
Plan: Case management will continue to follow and assist with discharge planning. BV cleared medically.
[2023-08-18] MEDS: FLAGYL TUBE (16:51)
[2023-08-18] MEDS: LOPRESSOR TUBE (16:51)
[2023-08-18] MEDS: SEROQUEL TUBE (16:51)
[2023-08-18] MEDS: FLAGYL 500 MG PO ×2 (17:05→20:56)
[2023-08-18] MEDS: LOPRESSOR 25 MG PO ×2 (17:05→20:56)
[2023-08-18] MEDS: SEROQUEL 25 MG PO (17:05)
[2023-08-18 17:08] LABS: Glucose - Point of Care 117 mg/dl (70-99)
--- NOTE | 2023-08-18 17:17 | PTCARENOTE ---
Pt. tolerating PO intake; small intake amt s/p NGT removal. Admin meds crushed in applesauce. Cardizem and PPI gtts off per orders. Inquired w vascular regarding R IJ TL removal, awaiting response. to bedside this PM, updated on plan of care.
Remains restless/confused/delirious in restraints, bed alarm active. Intermittently able to follow simple commands; cooperative. Safe environment maintained.
[2023-08-18] MEDS: Parenteral Nutrition, Central 1510 IV (20:51)
[2023-08-18] MEDS: PROTONIX IV 40 MG IV (20:55)
[2023-08-18] MEDS: ELIQUIS 5 MG PO (20:55)
[2023-08-18] MEDS: NSS (PRESERVATIVE FREE) 10 ML IV (20:56)
[2023-08-18] MEDS: CARDIZEM 60 MG PO (20:56)
[2023-08-18] MEDS: TYLENOL 650 MG PO (20:56)
--- NOTE | 2023-08-18 21:00 | PTCARENOTE ---
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 RTL IJ/R DL PICC intact- TPN infusing per work list. AFib HR 90s. B/L LE NV check intact- pulses palpable/weak. full
skin/surgical wound documentation on work list. L colostomy WNL, condom cath draining yellow urine.
[2023-08-19] VITALS (22 sets, daily range): BP systolic 92–158; BP diastolic 56–116; BMI 23.9
[2023-08-19 00:22] LABS: Glucose - Point of Care 174 mg/dl (70-99)
[2023-08-19] MEDS: SEROQUEL 25 MG PO ×3 (00:24→15:42)
[2023-08-19] MEDS: NOVOLOG FLEXPEN-LOW RESISTANCE 1 UNITS SC ×2 (00:24→18:11)
[2023-08-19] MEDS: STERILE WATER FOR INJECTION 10 ML IV ×3 (04:50→20:45)
[2023-08-19] MEDS: MAXIPIME 1000 MG IV ×3 (04:50→20:45)
[2023-08-19 05:37] LABS: ALT (SGPT) 46 U/L (0-50); AST (SGOT) 54 U/L (17-59); Albumin 2.2 g/dl (3.5-5.0); Alkaline Phosphatase 128 U/L (38-126); Blood Urea Nitrogen 52 mg/dl (9-20); Calcium 8.8 mg/dl (8.4-10.2); Carbon Dioxide 23 mmol/L (22-30); Chloride 115 mmol/L (98-107); Estimated Creatinine Clearance 39 ml/min; Glucose 118 mg/dl (70-99); Potassium 4.2 mmol/L (3.5-5.1); Sodium 140 mmol/L (135-145); Total Bilirubin 0.8 mg/dl (0.2-1.3); Total Protein 5.5 g/dl (6.3-8.2); eGFR 43.56
[2023-08-19] MEDS: NOVOLOG FLEXPEN-LOW RESISTANCE SC ×2 (06:00→12:29)
[2023-08-19] MEDS: SPIRIVA RESPIMAT 2.5 MCG 2 PUFF INH (07:13)
[2023-08-19] MEDS: LOW STRENGTH ASPIRIN 81 MG PO (07:38)
[2023-08-19] MEDS: VITAMIN B-12 100 MCG PO (07:38)
[2023-08-19] MEDS: CARDIZEM 60 MG PO ×3 (07:38→21:10)
[2023-08-19] MEDS: LOPRESSOR 25 MG PO ×3 (07:38→21:11)
[2023-08-19] MEDS: NSS (PRESERVATIVE FREE) 10 ML IV ×2 (07:39→20:46)
[2023-08-19] MEDS: ELIQUIS 5 MG PO ×2 (07:39→20:45)
[2023-08-19] MEDS: FLAGYL 500 MG PO ×3 (07:39→21:10)
[2023-08-19] MEDS: PROTONIX IV 40 MG IV ×2 (07:39→20:46)
[2023-08-19] MEDS: FOLVITE 1 MG PO (07:39)
--- NOTE | 2023-08-19 08:05 | W.PN.VS ---
Addendum entered and electronically signed by Linwood Balbuena III, MD 08/19/23 10:59:
This patient was seen and examined with BEBA Garcia. I agree with the history and physical exam as well as the assessment and plan.
Signed:
Linwood Balbuena III, MD
[facility]
[phone] (omon)
Original Note:
Today's Communication / Plan
-
Patient seen and examined with Dr. Linwood Balbuena III, below plan reviewed with attending.
Assessment/Plan
-
Plan/ POD# 14 PMEG/bilat CFAE. Post op course c/b ischemic colitis requiring colectomy/ostomy.
KEEP groin sites covered with waterproof dressings
Cont ASA/eliquis
Continue PPI, TPN per colorectal
monitor uop closely. Replace condom cath as needed
Appreciate psych
PT/OT
D/c right chest central line
OOB to chair as tolerated
Subjective Data
-
Date of Service: August 19, 2023
Patient seen and examined at bedside, oriented to self and place but remains agitated and disoriented to hospital course. Denies nausea, vomiting, chills, and claudication/rest pain. Tolerating PO pills.
Objective Data
-
Vital Signs
Temp Pulse Resp BP Pulse Ox
99.8 F 105 23 149/109 93
08/19/23 07:49 08/19/23 07:38 08/19/23 07:15 08/19/23 07:38 08/19/23 07:15
Intake and Output
08/18/23 08/19/23 08/20/23
06:59 06:59 06:59
Intake Total 2247 / 2325 1488 / 1488
Output Total 860 / 860 1960 / 1960
Balance 1387 / 1465 -472 / -472
Intake:
IV fluids (Total) 445 / 460 105 / 105
Cardizem 205 / 210 35 / 35
Protonix 240 / 250 70 / 70
TPN/PPN 1512 / 1575 1323 / 1323
Amount instilled into GI Tube ( 290 / 290 60 / 60
Total)
[place] Sump 290 / 290 60 / 60
Output:
Liquid stool amount 125 / 125
Colostomy 125 / 125
Drain Output (Total)
Right Lower Abdomen Damian-
Tello
Urine, Voided 725 / 725 1949 / 1949
Other:
How many times incontinent 1
SMALL amount urine
How many times incontinent 1
MODERATE amount urine
How many times incontinent 1
SATURATED amount urine
Lab Results
08/18/23 03:26
08/19/23 04:55
Calcium 8.8 mg/dl (8.4-10.2) 08/19/23 04:55
Phosphorus 3.4 mg/dl (2.5-4.5) 08/18/23 03:26
Magnesium 2.5 mg/dl (1.6-2.3) H 08/18/23 03:26
Total Bilirubin 0.8 mg/dl (0.2-1.3) 08/19/23 04:55
Direct Bilirubin 0.5 mg/dl (0.0-0.4) H 08/06/23 03:27
AST 54 U/L (17-59) 08/19/23 04:55
ALT 46 U/L (0-50) 08/19/23 04:55
Alkaline Phosphatase 128 U/L (38-126) H 08/19/23 04:55
Total Protein 5.5 g/dl (6.3-8.2) L 08/19/23 04:55
Albumin 2.2 g/dl (3.5-5.0) L 08/19/23 04:55
Physical Exam
-
Oriented to self and place
Mitts bilat UE's
Abd flat, soft, NT
stoma productive, with stool and air
Incisions clean/dry x 3, groin sites with CDI aquacell dressing.
Ext warm, BP PT signal by doppler
PRAKASH intact, minimal output
--- NOTE | 2023-08-19 08:30 | PTCARENOTE ---
Received pt @ change of shift. Labile mood, pleasant @ x's, uncooperative/argumentative @ others. Oriented to self/situation; required reorientation to time/place. Confused/restless, remains in b/l soft limb/mitt/4 rails. Afib on monitor. SpO2 96%
on RA. P cough w thick parks/bloody tinged sputum. Oral hygiene care provided. L colostomy w liq dark brown stool. R PRAKASH w scant amt ser/sagn drainage. Tolerating clear liq diet per GI/speech. Able to take meds crushed in applesauce. #25 CC
drainage yellow urine. B/L groin aquacell dressing c/d/i. Midline abd incision BRENDON, approx, renny intact. Received orders to d/c R IJ TL, VAT aware. R DL PICC patent, dressing c/d/i; TPN infusing per orders. Frequently redirected, bed alarm
active. Safe environment maintained.
--- NOTE | 2023-08-19 08:50 | W.PN.INTV ---
Today's Communication / Plan
Recommendations
Continue postoperative care
No additional recommendation from the critical care pulmonary perspective
Sign off
Assessment
-
78-year-old male with a PMHx of PAD s/p kissing iliac stents bilaterally, AAA, COPD, tobacco use disorder, CAD s/p CABG x3 and A-fib s/p multiple failed cardioversions who presents with elective bilateral femoral endarterectomy and vascular
intervention for AAA. s/p bilateral femoral cutdowns, femoral endarterectomies with patch angioplasty and then eventually retrograde balloon angioplasty with stenting of the left iliac artery and endovascular repair of his aortic aneurysm on
08/05/23. Patient is transferred postoperatively to the ICU and aviation electronic warfare operator service is consulted for additional management/recommendations.
Impression:
#Acute hypoxic respiratory failure s/p intubation on mechanical ventilation - likely combo of PNA and pulmonary edema, I suspect mainly the former though
s/p intubation 08/09/23
#Bilateral femoral artery stenosis s/p cutdown with endarterectomy with bovine patch angioplasty & left iliac artery stenting 08/05/23
#AAA s/p EVAR using physician modified aortic endograft 08/05/23
#Rectal bleeding/BRBPR due to ischemic colitis s/p flexible sigmoidoscopy with open left colectomy with takedown of splenic flexure and end-distal sigmoid colostomy 08/06/23
#Lactic acidosis due to ischemic colitis (likely as an unfortunate complication from the EVAR) - lactate normalized
#Leukocytosis
#Anemia - due to ischemic colitis as above
#A-fib with RVR s/p cardizem gtt and now amiodarone gtt
#Hx of COPD (moderate severity per spirometry from 2019)
#Alcohol use disorder c/b acute withdrawal
ICU delirium
Fever
NATALIE with acute renal infarcts
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
Hyperlipidemia
ED
PMR
hypertension
CAD s/p s/p stents (1993 + 1994), CABG x3
history of skin cancer
tobacco use disorder, PAD
NSVT s/p ablation
history of alcohol abuse
history of COPD
A-fib (diagnosed in 2017)
history of diverticulosis
history of NSTEMI
Plan:
Overall delirium slowly improving. He remains intermittently confused.
patient is pleasant, following commands.
-
Continue seroquel continued-psychiatry following the patient.
-
Acute hypoxic RF s/p intubation,eExtubated 08/11/23. Resolved.
Patient has good cough effort. No significant secretions.
Not bronchospastic on exam.
COPD history: Continue inhalers.
-
Heart failure with preserved ejection fraction. Initial proBNP was elevated.
CXR showing enlarged cardiac silhouette, last ECHO preserved function
Status post diuresis. Continue to follow volume status.
Cardizem drip has been discontinued.
Continue beta-domingo orally.
Continue Eliquis, tolerating without bleeding.
Cards following for ongoing HR management
NPO post colon surgery, TPN continued
NG tube has been discontinued
Patient tolerating sips of water.
CRC following
Check daily electrolytes.
-
Continue Abx with Zosyn and completed 7 day course
Culture neg to date
Fever again, now on CFP/Flagyl, can likely stop after 5 days-08/20/2023
Leukocytosis improving/afebrile.
Cultures remain negative to date
NATALIE with renal infarcts. Stable.
Continue to follow creatinine and urinary output.
Will avoid nephrotoxins.
Monitor hemoglobin with serial CBC
Transfuse if needed to maintain Hb>7g/dL, plt>50k
Monitor blood sugars with goal BG 140-180mg/dL
Insulin supplementation if needed
Post-operative management as per vascular surgery and colorectal surgery.
Wound care continues
DVT prophylaxis recommended: on Eliquis.
Stress ulcer ppx
No additional recommendation from the critical care or pulmonary perspective. Patient is IMU status.
Continue with postoperative care
Sign off

Diagnostic Data
CXR 08-10-2023: Bilateral pulmonary opacities are not significantly changed compared to the previous chest radiograph from 08/09/2023.
CXR 08-09-2023: Increased bilateral airspace and interstitial compared to the chest radiograph from 08/08/2023 suggestive of worsening pulmonary edema versus pneumonia.
CXR 08-08-2023:Interval development of ill-defined perihilar airspace opacities as well as ill-defined opacity within the right lung base. No significant effusions. Findings suspicious for pulmonary edema versus less likely multifocal pneumonia.
Abd XR 08-06-2023: Feeding tube placement as described above. Moderate fecal material in the colon. Stable postsurgical change of the abdomen.
ECHO 05/09/23: Normal biventricular size and systolic function without regional wall motion abnormality. Estimated LVEF 50-55%. Mild concentric left ventricular hypertrophy. No significant valve disease.
Compared to 01/15/23: no significant change.
Prior Spirometry: 12/2019: FEV1/FVC: 45, FEV1: 1.71L (58% predicted), FVC: 3.76L (93% predicted), [id number]%: 18%
-----
Subjective Dataa
Subjective Data
Date of Service:
Date of Service: August 19, 2023
Chief Complaint: Emergency Vehicle Operations Instructor Follow Up
Subjective:
Patient denies any acute symptoms.
Denies any pain
Continues to be pleasantly confused. Cooperative.
Denies nausea or vomiting
Now tolerating liquids
Review of Systems
Cardiopulmonary: Dyspnea (n), Dyspnea on Exertion (n) and Cough (n)
GI: Abdominal Pain (n), Nausea and Vomiting (n)
Objective Data
Data Reviewed
Vital Signs / I&O / Oxygen:
Vital Signs
Temp Pulse Resp BP Pulse Ox
99.8 F 104 15 150/96 96
08/19/23 07:49 08/19/23 08:00 08/19/23 08:00 08/19/23 08:00 08/19/23 08:12
Intake and Output
08/18/23 08/19/23 08/20/23
06:59 06:59 06:59
Intake Total 2247 / 2325 2088 / 2151 366 / 366
Output Total 860 / 860 1960 / 1960
Balance 1387 / 1465 128 / 191 366 / 366
SaO2 [A/C] 97
SaO2 96
Nasal Cannula flow liters per 2
minute
Physical Exam
General: Comfortable, Chills (negative), Poor Appetite and Other (mitts/restraints)
HEENT: Normocephalic and Anicteric
Cardiovascular: S1-S2, Irregular Rhythm (tachycardic) and Peripheral Edema (negative)
Respiratory: Wheeze (negative), Crackles (negative), Rhonchi (Bilaterally (R >L)) and Non-Labored Respirations
GI: Soft, Non Distended, Tender (ashlyn-umbilical region without peritoneal signs), NG Tube and Other (Colostomy in place with small amount of blood seen in bag; no clots seen)
Neurology: Awake, Alert, Oriented (to self, answers but at times inappropriate), No Motor Deficits, Tremors (negative) and Other (confused, hallucinating)
Skin: Warm, Dry and Other (toes are cool to touch bilaterally)
Labs/Micro/Reports
Lab Data
08/18/23 03:26
08/19/23 04:55
Microbiology
08/14/23 10:03 Blood/Venous Blood Culture - Preliminary
No Growth in 4 days- Final report to follow
08/14/23 09:54 Blood/Venous Blood Culture - Preliminary
No Growth in 4 days- Final report to follow
08/11/23 13:18 Blood/Venous Blood Culture - Final
No Growth - Final Report
--- NOTE | 2023-08-19 09:22 | W.PN.CD ---
Today's Communication / Plan
-
check ecg
continue current medications
Impression / Plan
-
Complex vascular surgery on 08/06/2023 for AAA/iliac disease/PAD
Ischemic colitis, postop vascular surgery S/P colostomy, flexible sigmoidoscopy and colectomy with a colostomy on 08/06/[address] Padilla
Fever, leukocytosis, per primary team
Permanent atrial fibrillation
-Transition from intravenous Labetalol to metoprolol tartrate (needs to be crushed) and SA dilt
-? Sinus with primary av conduction delay currently? Difficult to discern on tele will check ecg
-Restarted apixaban 08/15/23
-Amiodarone stopped 08/15/23
-
Anemia, total 6 U this admit
Left kidney infarction by CTA 08/14/2023
HTN
NSVT, normal LVEF, continue BB
Abnormal troponin, peak 0.043, likely nonischemic myocardial injury in the setting of acute illness
CAD, PCI with stenting 1993 & 1994, CABG 2016, stable without CP
Prior CVAs
HLD, continue rosuvastatin 40mg when bowel function returns
Current smoker, cessation recommended
Deliruim, seems improved
Subjective:
He thinks we are on a boat and quite mad about it, would like to get off the boat
Echo 05/2023: LVEF 50-55%
Physical Exam
Vital Signs/Labs
Vital Signs
Temp Pulse Resp BP Pulse Ox
99.8 F 104 15 150/96 96
08/19/23 07:49 08/19/23 08:00 08/19/23 08:00 08/19/23 08:00 08/19/23 08:12
08/18/23 08/19/23 08/20/23
06:59 06:59 06:59
Actual Weight 75.7 kg 75.5 kg
03/11/24 03:26
08/19/23 04:55
PT 15.4 Sec (11.4-14.6) H 08/06/23 03:27
INR 1.21 08/06/23 03:27
APTT Cancelled 08/15/23 12:00
Magnesium 2.5 mg/dl (1.6-2.3) H 08/18/23 03:26
Triglycerides 154 mg/dl (10-149) H 08/18/23 03:26
08/11/23
04:15
[id number] Pept 4920
Physical Exam
Constitutional: No acute distress and Confusion (not oriented at all)
Cardiovascular: Rhythm & rate is regular, Pedal edema is absent, JVD pressure is normal and Systolic murmur absent
Respiratory: Respiratory effort normal, Lungs clear to auscul., Wheeze Absent, Crackles Absent and Rhonchi Absent
Neuro/Psych: AO x 3
Data Reviewed
-
Date of Service: August 19, 2023
EKG: Tracing Personally Visualized and interpreted (tele ?sinus with first degree and pvcs, )
--- NOTE | 2023-08-19 09:57 | CM ---
Spoke with Yessica in admissions at who was updated and she confirmed that she has a bed for patient when he is stable and cleared for discharge.
Plan: Case management will continue to follow and assist with discharge planning. when medically stable.
--- NOTE | 2023-08-19 11:04 | W.PN.UPDATE ---
Update Note
Progress Note Update
Patient seen at beside, chart reviewed, discussed with staff. Mr. Guajardo is awake, alert, oriented to self. He is cooperative and pleasant. He remains in hand mitts but appears he got one hand loose and has been touching his abdomen and appears to
have ostomy drainage on his hands and gown. Informed RN.� No agitation reported.� He tells me his cousin of COVID and that he cannot wait to see his and give her a kiss.� Last QTc 455.�No side effects noted on Seroquel.
Impression/Plan:� Delirium, slowly improving.� No agitation reported - Continue Seroquel 25 mg Q8 hrs. Will follow.
[2023-08-19 12:25] LABS: Glucose - Point of Care 119 mg/dl (70-99)
--- NOTE | 2023-08-19 12:33 | VATNOTE ---
Right IJ TLC removed per procedure. Direct pressure held x 5 min, occlusive dressing applied. No bleeding noted.
--- NOTE | 2023-08-19 12:55 | W.PN.CRS1 ---
Today's Communication / Plan
-
low residue
tpn one more day
Assessment/Plan
-
POD#13 - open left colectomy with takedown of splenic flexure and end distal sigmoid colostomy, ischemic colitis
1. Temp yesterday at 15:00 - 100.5 but afebrile since.
2. Tolerated NGT removal and clears yesterday. Advance to a low residue diet with Ensure with modified ASSURANCE SENIOR MANAGER INSURANCE recommendations.
3. OOB as tolerated.
4. Continue TPN for today. If tolerates low residue, will anticipate this being the last bag (starting at 21:00).
5. Continue antibiotics per primary team.
6. Anticoagulation per Vascular: on Eliquis.
7. Stoma teaching per wound RN.
8. OR pathology is consistent with severe ischemic changes, negative for carcinoma.
Subjective Data
Procedure
08/06/2023- open left colectomy with takedown of splenic flexure and end distal sigmoid colostomy, ischemic colitis
Subjective Data
Date of Service: August 19, 2023
Patient has no complaints. He is hungry. His pain is controlled. He has no nausea or vomiting per nursing.
Objective Data
-
Vital Signs
Temp Pulse Resp BP Pulse Ox
97.5 F 104 15 150/96 96
08/19/23 11:19 08/19/23 08:00 08/19/23 08:00 08/19/23 08:00 08/19/23 08:12
Intake & Output
08/18/23 08/19/23 08/20/23
06:59 06:59 06:59
Intake Total 2247 / 2325 2088 / 2151 429 / 429
Output Total 860 / 860 1960 / 1960
Balance 1387 / 1465 128 / 191 429 / 429
Intake:
Oral fluids 600 / 600 240 / 240
IV fluids (Total) 445 / 460 105 / 105
Cardizem 205 / 210 35 / 35
Protonix 240 / 250 70 / 70
TPN/PPN 1512 / 1575 1323 / 1386 189 / 189
Amount instilled into GI Tube ( 290 / 290 60 / 60
Total)
[place] Sump 290 / 290 60 / 60
Output:
Liquid stool amount 125 / 125
Colostomy 125 / 125
Drain Output (Total)
Right Lower Abdomen Damian-
Tello
Urine, Voided 725 / 725 1950 / 1950
Other:
How many times incontinent 1
SMALL amount urine
How many times incontinent 1
MODERATE amount urine
How many times incontinent 1
SATURATED amount urine
Lab Results
08/18/23 03:26
08/19/23 04:55
Physical Exam
-
General: No Acute Distress and AOx3
Abdomen: Soft, Non Distended, Non Tender and Other (colostomy warm and pink with output)
Wound: Dressing Changed and Other (nallely drain serous)
[2023-08-19 13:44] LABS: Transferrin 107 mg/dL (200-360)
--- NOTE | 2023-08-19 14:46 | PTCARENOTE ---
R IJ TL removed by VAT dressing c/d/i. Pt. assisted x 2 OOB to chair. Generalized weakness/unsteady gait. Grand-daughter @ bedside, assisted w meal supervision. Pt. unrestrained when OOB to chair for lunch. Cooperative but remains
confused/requires frequent redirection. Pt. assisted back to bed x 2, upon family departure. OOB approx 2 hrs. Pt. still attempting to pull @ lines/tubes while back in bed, new restraint order obtained. Repositioned. Bed alarm active.
--- NOTE | 2023-08-19 15:39 | WOUNDNOTE ---
KHOA RN NOTE: Patient's appliance is intact no leakage, pouch with bowel sweat, not actively producing stool. Stoma intact appears recessed. For next appliance change, supplies at bedside, nursing can do until further teaching needed with family.
[2023-08-19 17:49] LABS: Glucose - Point of Care 162 mg/dl (70-99)
[2023-08-19] MEDS: Parenteral Nutrition, Central 1510 IV (20:42)
--- NOTE | 2023-08-19 21:00 | PTCARENOTE ---
Pt continues to have confused and forgetful mentation. TPN gtt initiated at 2100. Surgical sites C/D/I. VSS.
[2023-08-19] MEDS: DILAUDID 1 MG IV (23:21)
[2023-08-19 23:41] LABS: Glucose - Point of Care 137 mg/dl (70-99)
[2023-08-20] VITALS (21 sets, daily range): BP systolic 102–161; BP diastolic 69–119; PULSE 82–95; O2SAT 100; BMI 23.7
[2023-08-20] MEDS: SEROQUEL PO (02:57)
[2023-08-20] MEDS: STERILE WATER FOR INJECTION 10 ML IV ×3 (05:07→21:05)
[2023-08-20] MEDS: MAXIPIME 1000 MG IV ×3 (05:07→21:04)
[2023-08-20 05:39] LABS: Hematocrit 25.7 % (39.0-52.0); Hemoglobin 8.6 g/dL (13.0-18.0); Mean Corp Hgb Conc. 33.5 g/dL (33.0-37.0); Mean Corpuscular Hgb 30.9 pg (27.0-31.0); Mean Corpuscular Volume 92.4 fL (80.0-94.0); Platelet Count 419 10^3/uL (130-400); Red Blood Cell Count 2.78 10^6/uL (4.70-6.10); Red Cell Dist. Width 14.8 % (11.5-14.5); White Blood Cell Count 15.6 10^3/uL (4.8-10.8)
[2023-08-20 05:48] LABS: ALT (SGPT) 40 U/L (0-50); AST (SGOT) 48 U/L (17-59); Albumin 2.4 g/dl (3.5-5.0); Alkaline Phosphatase 132 U/L (38-126); Blood Urea Nitrogen 51 mg/dl (9-20); Calcium 8.8 mg/dl (8.4-10.2); Carbon Dioxide 23 mmol/L (22-30); Chloride 115 mmol/L (98-107); Estimated Creatinine Clearance 39 ml/min; Glucose 130 mg/dl (70-99); Magnesium 2.4 mg/dl (1.6-2.3); Potassium 4.2 mmol/L (3.5-5.1); Sodium 140 mmol/L (135-145); Total Bilirubin 0.6 mg/dl (0.2-1.3); Total Protein 5.8 g/dl (6.3-8.2); eGFR 43.56
[2023-08-20] MEDS: VITAMIN B-12 100 MCG PO (07:39)
[2023-08-20] MEDS: LOPRESSOR 25 MG PO ×3 (07:39→21:04)
[2023-08-20] MEDS: LOW STRENGTH ASPIRIN 81 MG PO (07:39)
[2023-08-20] MEDS: FLAGYL 500 MG PO ×3 (07:39→21:04)
[2023-08-20] MEDS: FOLVITE 1 MG PO (07:40)
[2023-08-20] MEDS: PROTONIX IV 40 MG IV ×2 (07:40→21:04)
[2023-08-20] MEDS: SEROQUEL 25 MG PO ×3 (07:40→23:01)
[2023-08-20] MEDS: ELIQUIS 5 MG PO ×2 (07:40→21:04)
[2023-08-20] MEDS: CARDIZEM 60 MG PO ×3 (07:40→21:03)
[2023-08-20] MEDS: NSS (PRESERVATIVE FREE) 10 ML IV ×2 (07:41→21:04)
[2023-08-20] MEDS: SPIRIVA RESPIMAT 2.5 MCG 2 PUFF INH (07:47)
[2023-08-20] MEDS: NOVOLOG FLEXPEN-LOW RESISTANCE SC ×3 (08:00→18:27)
--- NOTE | 2023-08-20 08:00 | PTCARENOTE ---
pt received at change of shift. arouses easily to voice. only oriented to self. disoriented to time and place. intermittent hallucinations noted. confused conversation. generalized weakness. Afib on telemetry heart rate 90-low 100s. pulses weakly
palpable. trace edema. pt on room air, sat 95-96%. lung sounds diminished throughout. intermittent nonproductive cough. active bowel sounds- left abdomen colostomy with small amount of brown stool and gas noted. #[address] voiding
clear yellow urine. [place] drain with minimal serous output. midline abdominal incision with renny intact. TPN infusing at 63 ml/hr per orders. see worklist for full nursing assessment and interventions.
--- NOTE | 2023-08-20 08:05 | W.PN.VS ---
Today's Communication / Plan
-
Seen and assessed with Dr Balbuena
Assessment/Plan
-
Plan/ POD# 15 PMEG/bilat CFAE. Post op course c/b ischemic colitis requiring colectomy/ostomy.
KEEP groin sites covered
Cont ASA/eliquis
TPN/diet per colorectal
Appreciate psych
PT/OT
OOB to chair as tolerated
Subjective Data
-
Date of Service: August 20, 2023
Pt seen at bedside with am with Dr Balbuena. Pt offers no complaints at this time. No events overnight.
Objective Data
-
Vital Signs
Temp Pulse Resp BP Pulse Ox
97.8 F 105 16 157/83 95
08/20/23 07:42 08/20/23 08:00 08/20/23 08:00 08/20/23 08:00 08/20/23 07:50
Intake and Output
08/19/23 08/20/23 08/21/23
06:59 06:59 06:59
Intake Total 2087 2532 / 2532
Output Total 1959 / 2349
Balance 128 / 191 182 / 182
Intake:
Oral fluids 600 / 600 1020 / 1020
IV fluids (Total) 105 / 105
Cardizem 35 / 35
Protonix 70 / 70
TPN/PPN 1323 / 1386 1512 / 1512
Amount instilled into GI Tube ( 60 / 60
Total)
[place] Sump 60 / 60
Output:
Drain Output (Total)
Right Lower Abdomen Damian-
Tello
Urine, Voided 1949 / 1949 2350 / 2350
Other:
How many times incontinent 1
SMALL amount urine
How many times incontinent 1
MODERATE amount urine
Lab Results
08/20/23 05:00
08/20/23 05:00
Calcium 8.8 mg/dl (8.4-10.2) 08/20/23 05:00
Phosphorus 3.4 mg/dl (2.5-4.5) 08/18/23 03:26
Magnesium 2.4 mg/dl (1.6-2.3) H 08/20/23 05:00
Total Bilirubin 0.6 mg/dl (0.2-1.3) 08/20/23 05:00
Direct Bilirubin 0.5 mg/dl (0.0-0.4) H 08/06/23 03:27
AST 48 U/L (17-59) 08/20/23 05:00
ALT 40 U/L (0-50) 08/20/23 05:00
Alkaline Phosphatase 132 U/L (38-126) H 08/20/23 05:00
Total Protein 5.8 g/dl (6.3-8.2) L 08/20/23 05:00
Albumin 2.4 g/dl (3.5-5.0) L 08/20/23 05:00
Physical Exam
-
Oriented to self and place
Mitts bilat UE's
Abd flat, soft, NT
stoma productive, with stool and air
Incisions clean/dry x 3
Ext warm, BP PT signal by doppler
PRAKASH intact, minimal output
[2023-08-20 08:09] LABS: Glucose - Point of Care 143 mg/dl (70-99)
--- NOTE | 2023-08-20 09:38 | W.PN.CRS1 ---
Today's Communication / Plan
-
continue low residue
PRAKASH drain removed
stop TPN
Assessment/Plan
-
POD#14 - open left colectomy with takedown of splenic flexure and end distal sigmoid colostomy, ischemic colitis
1. A little tachycardic.
2. Continue low residue diet with Ensure with modified MANAGER ENROLLMENT recommendations.
3. OOB as tolerated.
4. Finish TPN bag today, no further TPN needed.
5. Continue antibiotics per primary team.
6. Anticoagulation per Vascular: on Eliquis.
7. Stoma teaching per wound RN.
8. OR pathology is consistent with severe ischemic changes, negative for carcinoma.
9. PRAKASH drain removed at bedside.
Subjective Data
Procedure
08/06/2023- open left colectomy with takedown of splenic flexure and end distal sigmoid colostomy, ischemic colitis
Subjective Data
Date of Service: August 20, 2023
Patient states he has no complaints. Per nursing he ate his lunch yesterday.
Objective Data
-
Vital Signs
Temp Pulse Resp BP Pulse Ox
97.8 F 105 16 157/83 95
08/20/23 07:42 08/20/23 08:00 08/20/23 08:00 08/20/23 08:00 08/20/23 08:24
Intake & Output
08/19/23 08/20/23 08/21/23
06:59 06:59 06:59
Intake Total 2087 / 2151 2532 / 2595 189 / 189
Output Total 1959 / 1959 2350 / 2350 400 / 400
Balance 128 / 191 182 / 245 -211 / -211
Intake:
Oral fluids 600 / 600 1020 / 1020
IV fluids (Total) 105 / 105
Cardizem 35 / 35
Protonix 70 / 70
TPN/PPN 1323 / 1386 1512 / 1575 189 / 189
Amount instilled into GI Tube (
Total)
[place] Sump
Output:
Drain Output (Total)
Right Lower Abdomen Damian-
Tello
Urine, Voided 1949 / 19490 / 0 400 / 400
Other:
How many times incontinent 1
SMALL amount urine
How many times incontinent 1
MODERATE amount urine
Lab Results
08/20/23 05:00
08/20/23 05:00
Physical Exam
-
General: No Acute Distress and AOx3
Abdomen: Soft, Non Distended, Non Tender and Other (PRAKASH drain serous and minimal)
Wound: Dressing Changed
--- NOTE | 2023-08-20 11:15 | W.PN.CD ---
Today's Communication / Plan
-
Continue current rate control meds and Eliquis
Impression / Plan
-
Complex vascular surgery on 08/06/2023 for AAA/iliac disease/PAD
Ischemic colitis, postop vascular surgery S/P colostomy, flexible sigmoidoscopy and colectomy with a colostomy on 08/06/[address] Padilla
Fever, leukocytosis, per primary team
Permanent atrial fibrillation
-Transition from intravenous Labetalol to metoprolol tartrate (needs to be crushed) and SA dilt
-? Sinus with primary av conduction delay currently? Difficult to discern on tele will check ecg
-Restarted apixaban 08/15/23
-Amiodarone stopped 08/15/23
-
Anemia, total 6 U this admit
Left kidney infarction by CTA 08/14/2023
HTN
NSVT, normal LVEF, continue BB
Abnormal troponin, peak 0.043, likely nonischemic myocardial injury in the setting of acute illness
CAD, PCI with stenting 1993 & 1994, CABG 2016, stable without CP
Prior CVAs
HLD, continue rosuvastatin 40mg when bowel function returns
Current smoker, cessation recommended
Deliruim, seems improved, not oriented to place/situation
Subjective:
Oriented to person/[place] but not hospital/situation
Echo 05/2023: LVEF 50-55%
Physical Exam
Vital Signs/Labs
Vital Signs
Temp Pulse Resp BP Pulse Ox
97.8 F 87 18 129/70 95
08/20/23 07:42 08/20/23 10:00 08/20/23 10:00 08/20/23 10:00 08/20/23 08:24
08/19/23 08/20/23 08/21/23
06:59 06:59 06:59
Actual Weight 75.5 kg 75 kg
08/20/23 05:00
08/20/23 05:00
PT 15.4 Sec (11.4-14.6) H 08/06/23 03:27
INR 1.21 08/06/23 03:27
APTT Cancelled 08/15/23 12:00
Magnesium 2.4 mg/dl (1.6-2.3) H 08/20/23 05:00
Triglycerides 154 mg/dl (10-149) H 08/18/23 03:26
08/11/23
04:15
Hzl-[id number] Pept 4920
Physical Exam
Constitutional: No acute distress
EENT: Anicteric
Cardiovascular: Rhythm/rate is irregular
Respiratory: Respiratory effort normal and Lungs clear to auscul.
GI: Soft
Data Reviewed
-
Date of Service: August 20, 2023
[2023-08-20 13:45] LABS: Glucose - Point of Care 148 mg/dl (70-99)
--- NOTE | 2023-08-20 14:00 | PTCARENOTE ---
Cannot verify VS captured from prior unit.
--- NOTE | 2023-08-20 14:05 | PTCARENOTE ---
Pt received from ICU via bed. Aox1. Very confused. Pt with extremely labile moods, shouting and cursing at staff. Afib on tele monitor. Sating high 90's on RA. Surgical sites C/D/I. Colostomy with small stool output. Restraints maintained for
safety.
--- NOTE | 2023-08-20 14:32 | W.PN.UPDATE ---
Addendum entered and electronically signed by Toy Ngo MD 08/20/23 14:40:
patient is reportedly allergic to benzodiazepines. will leave a prn of seroquel
Original Note:
Update Note
Progress Note Update
patient seen chart reviewed. spoke with nursing. while patient is not out of control agitated, it seems he struggles to interact with staff appropriately referring to staff members using expletives including this service writer advisor who tried to gently talk
with him about what he had been through. he dismissed me with an expletive. i attempted to call his to ask her what he is like in his usual state but she was not there. i will call again. the question in my mind is whether his anger
expressed is due to change in mental status or business representative of his personality. will leave a prn of ativan if he becomes agitated/aggressive . if that is ineffective would consider a seroquel prn.
--- NOTE | 2023-08-20 16:07 | CM ---
Addendum entered by Julita Dawkins RN 08/20/23 16:49:
Message to [facility] nurses: will need colostomy product info to give to SNF.
Original Note:
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 Room air. Last bag TPN today then d/c'ed.
Low residue diet. PRAKASH drain removed today. Receiving IV cefepime. Seen by Psych for agitation. Per nurse assessment; confused, forgetful, hallucinations, restraints. [facility] for stoma care & ostomy teaching with . PT & OT Evals; requires
assist of 2, recommend skilled rehab.
Spoke with Yessica, s [facility]; provided clinical update. They are interested however have not accepted the patient, due to the medical complexity, and their DON will need to review. SNF referral updated in [employer].
Plan follow up with [facility] for acceptance.
[2023-08-20 18:24] LABS: Glucose - Point of Care 131 mg/dl (70-99)
[2023-08-20 22:28] LABS: Glucose - Point of Care 90 mg/dl (70-99)
[2023-08-21] VITALS (12 sets, daily range): BP systolic 105–138; BP diastolic 49–93; BMI 23.2
[2023-08-21] MEDS: MAXIPIME 1000 MG IV (05:52)
[2023-08-21] MEDS: STERILE WATER FOR INJECTION 10 ML IV (05:52)
--- NOTE | 2023-08-21 06:33 | PTCARENOTE ---
Patient continuously agitated, uncooperative, and confused throughout the shift. Patient with hallucinations. He believes we are on a boat and that an owl is spreading fungus throughout his room. Education provided and ineffective. Remains in b/l
wrist restraints + mitts
[2023-08-21] MEDS: SPIRIVA RESPIMAT 2.5 MCG 2 PUFF INH (07:43)
--- NOTE | 2023-08-21 07:45 | W.PN.VS ---
Addendum entered and electronically signed by Zeb Rivera MD 08/21/23 12:33:
Seen and examined with RAHEEL Diaz. Agree with findings and plan as discussed and noted below.
Original Note:
Today's Communication / Plan
-
Seen and assessed with Dr. Rivera
Assessment/Plan
-
Plan/ POD# 16 PMEG/bilat CFAE. Post op course c/b ischemic colitis requiring colectomy/ostomy.
KEEP groin sites covered
Cont ASA/eliquis
Calorie count, cont supplementation
Appreciate psych
PT/OT
OOB to chair as tolerated
Subjective Data
-
Date of Service: August 21, 2023
Patient stated bedside this a.m. with Dr. Rivera. Patient is pleasantly confused and able to follow commands this morning. Mitts BL. All surgical sites intact, ostomy intact
Objective Data
-
Vital Signs
Temp Pulse Resp BP Pulse Ox
98.2 F 91 17 138/93 94
08/21/23 04:38 08/21/23 06:03 08/21/23 06:03 08/21/23 06:03 08/21/23 04:00
Intake and Output
08/20/23 08/21/23 08/22/23
06:59 06:59 06:59
Intake Total 2532 / 2595 492 / 492
Output Total 2350 / 2350 1200 / 1200
Balance 182 / 245 -708 / -708
Intake:
Oral fluids 1020 / 1020 240 / 240
TPN/PPN 1512 / 1575 252 / 252
Output:
Urine, Voided 2350 / 2350 1200 / 1200
Other:
How many times incontinent 1
MODERATE amount urine
Lab Results
08/20/23 05:00
08/20/23 05:00
Calcium 8.8 mg/dl (8.4-10.2) 08/20/23 05:00
Phosphorus 3.4 mg/dl (2.5-4.5) 08/18/23 03:26
Magnesium 2.4 mg/dl (1.6-2.3) H 08/20/23 05:00
Total Bilirubin 0.6 mg/dl (0.2-1.3) 08/20/23 05:00
Direct Bilirubin 0.5 mg/dl (0.0-0.4) H 08/06/23 03:27
AST 48 U/L (17-59) 08/20/23 05:00
ALT 40 U/L (0-50) 08/20/23 05:00
Alkaline Phosphatase 132 U/L (38-126) H 08/20/23 05:00
Total Protein 5.8 g/dl (6.3-8.2) L 08/20/23 05:00
Albumin 2.4 g/dl (3.5-5.0) L 08/20/23 05:00
Physical Exam
-
Oriented to self and place
Mitts bilat UE's
Abd flat, soft, NT
stoma productive, with stool and air
Incisions clean/dry x 3
Ext warm, BP PT signal by doppler
PRAKASH intact, minimal output
[2023-08-21 08:21] LABS: Glucose - Point of Care 95 mg/dl (70-99)
[2023-08-21] MEDS: NOVOLOG FLEXPEN-LOW RESISTANCE SC ×3 (09:56→17:22)
[2023-08-21] MEDS: CARDIZEM 60 MG PO ×3 (09:57→23:00)
[2023-08-21] MEDS: FLAGYL 500 MG PO (09:58)
[2023-08-21] MEDS: ELIQUIS 5 MG PO ×2 (09:58→19:20)
[2023-08-21] MEDS: LOW STRENGTH ASPIRIN 81 MG PO (09:59)
[2023-08-21] MEDS: FOLVITE 1 MG PO (09:59)
[2023-08-21] MEDS: LOPRESSOR 25 MG PO (09:59)
[2023-08-21] MEDS: NSS (PRESERVATIVE FREE) 10 ML IV (10:00)
[2023-08-21] MEDS: PROTONIX IV 40 MG IV (10:01)
[2023-08-21] MEDS: SEROQUEL 25 MG PO ×3 (10:02→23:00)
[2023-08-21] MEDS: VITAMIN B-12 100 MCG PO (10:02)
--- NOTE | 2023-08-21 10:11 | W.PN.CD ---
Today's Communication / Plan
-
Move from Dilt IR to Dilt CD
Move metoprolol tartrate from TID to BID, with slight dose increase
Continue Eliquis
Impression / Plan
-
Complex vascular surgery on 08/06/2023 for AAA/iliac disease/PAD
Ischemic colitis, postop vascular surgery S/P colostomy, flexible sigmoidoscopy and colectomy with a colostomy on 08/06/[address] Padilla
Fever, leukocytosis => improving on ATBs
Permanent atrial fibrillation
-on PO dilt and metoprolol with good rate control
-Restarted apixaban 08/15/23
-Amiodarone stopped 08/15/23
-
Anemia, total 6 U this admit
Left kidney infarction by CTA 08/14/2023
HTN
NSVT, normal LVEF, continue BB
Abnormal troponin, peak 0.043, likely nonischemic myocardial injury in the setting of acute illness
CAD, PCI with stenting 1993 & 1994, CABG 2016, stable without CP
Prior CVAs
HLD, continue rosuvastatin 40mg when bowel function returns
Current smoker, cessation recommended
Deliruim, seems improved, not oriented to place/situation
Subjective:
Oriented to person/[facility] but not hospital/situation
Echo 05/2023: LVEF 50-55%
Physical Exam
Vital Signs/Labs
Vital Signs
Temp Pulse Resp BP Pulse Ox
97.9 F 86 18 138/93 99
08/21/23 07:00 08/21/23 07:46 08/21/23 07:46 08/21/23 07:00 08/21/23 08:05
08/20/23 08/21/23 08/22/23
06:59 06:59 06:59
Actual Weight 75 kg 73.2 kg
08/20/23 05:00
08/20/23 05:00
PT 15.4 Sec (11.4-14.6) H 08/06/23 03:27
INR 1.21 08/06/23 03:27
APTT Cancelled 08/15/23 12:00
Magnesium 2.4 mg/dl (1.6-2.3) H 08/20/23 05:00
Triglycerides 154 mg/dl (10-149) H 08/18/23 03:26
08/11/23
04:15
Vpe-[id number] Pept 4920
Physical Exam
Constitutional: No acute distress
EENT: Anicteric
Cardiovascular: Rhythm/rate is irregular and S1S2 is normal
Respiratory: Respiratory effort normal and Lungs clear to auscul.
GI: Soft
Neuro/Psych: Alert
Data Reviewed
-
Date of Service: August 21, 2023
--- NOTE | 2023-08-21 10:48 | WOUNDNOTE ---
[facility] RN note: NINA Gibbs stated the property and casualty insurance agent nurse changed patient's appliance d/t patient had pulled his ostomy appliance off. Ostomy appliance intact. Stool liquid brown. Stoma flush and pink. Sacral skin intact. R inner buttocks blanchable mild
red. Skin on heels intact. Patient turned to R semi side lying position with help from NINA Gibbs and RN student. Heels off bed with air chair cushion. t/c SPD and ordered ostomy supplies (Yasmany wafer # [id number], Sena seals and Yasmany pouch #
[id number]). Discussed with NINA Gibbs.
[2023-08-21 12:26] LABS: Glucose - Point of Care 111 mg/dl (70-99)
--- NOTE | 2023-08-21 13:50 | W.PN.UPDATE ---
Update Note
Progress Note Update
patient seen very briefly as he was dozing and while he woke up momentarily he did go back to sleep. i am told by nursing that he is much better than he was yesterday when he referred to staff and this fiction writer using expletives. hopefully that was a
manifestation of a delirium which may be resolving. noted that he did not require any prn's yesterday despite irritability. did not make any changes in meds today but tomorrow if he continues to improve would start to taper and perhaps dc seroquel
[2023-08-21 17:05] LABS: Glucose - Point of Care 125 mg/dl (70-99)
[2023-08-21] MEDS: LOPRESSOR 50 MG PO (19:19)
[2023-08-21 21:25] LABS: Glucose - Point of Care 165 mg/dl (70-99)
--- NOTE | 2023-08-21 22:15 | PTCARENOTE ---
Patient stated he is '.' He thinks we are [place]. He stated that he 'wants to go home have one beer, and one whiskey, then go on up.' Emotional support provided.
[2023-08-21] MEDS: DILAUDID 1 MG IV (23:00)
[2023-08-22] VITALS (12 sets, daily range): BP systolic 101–135; BP diastolic 58–89; BMI 23.2
[2023-08-22 03:46] LABS: Hematocrit 26.7 % (39.0-52.0); Mean Corp Hgb Conc. 33.7 g/dL (33.0-37.0); Mean Corpuscular Hgb 31.3 pg (27.0-31.0); Mean Corpuscular Volume 92.7 fL (80.0-94.0); Mean Platelet Volume 11.6 fL (7.4-10.4); Platelet Count 508 10^3/uL (130-400); Red Blood Cell Count 2.88 10^6/uL (4.70-6.10); Red Cell Dist. Width 14.5 % (11.5-14.5)
[2023-08-22 04:22] LABS: Blood Urea Nitrogen 53 mg/dl (9-20); Carbon Dioxide 22 mmol/L (22-30); Chloride 109 mmol/L (98-107); Estimated Creatinine Clearance 34 ml/min; Glucose 105 mg/dl (70-99); Magnesium 2.6 mg/dl (1.6-2.3); Potassium 5.1 mmol/L (3.5-5.1); Sodium 139 mmol/L (135-145); eGFR 37.82
[2023-08-22] MEDS: NOVOLOG FLEXPEN-LOW RESISTANCE SC ×3 (07:30→17:31)
[2023-08-22 07:38] LABS: Glucose - Point of Care 102 mg/dl (70-99)
[2023-08-22] MEDS: SPIRIVA RESPIMAT 2.5 MCG 2 PUFF INH (07:53)
[2023-08-22] MEDS: LOW STRENGTH ASPIRIN 81 MG PO (08:24)
[2023-08-22] MEDS: ELIQUIS 5 MG PO ×2 (08:24→19:38)
[2023-08-22] MEDS: FOLVITE 1 MG PO (08:24)
[2023-08-22] MEDS: VITAMIN B-12 100 MCG PO (08:24)
[2023-08-22] MEDS: CARDIZEM 60 MG PO ×3 (08:24→22:35)
[2023-08-22] MEDS: SEROQUEL 25 MG PO ×2 (08:25→22:35)
[2023-08-22] MEDS: LOPRESSOR PO (08:25)
--- NOTE | 2023-08-22 09:06 | W.PN.VS ---
Addendum entered and electronically signed by Linwood Balbuena III, MD 08/22/23 15:29:
This patient was seen and examined with BEBA Garcia. I agree with the history and physical exam as well as the assessment and plan.
Signed:
Linwood Balbuena III, MD
[facility]
[phone] (voyz)
Original Note:
Today's Communication / Plan
-
Patient seen and examined at bedside with Dr. Linwood Balbuena III, below plan reviewed with attending
Assessment/Plan
-
Plan/ POD# 17 PMEG/bilat CFAE. Post op course c/b ischemic colitis requiring colectomy/ostomy.
KEEP groin sites covered
Cont ASA/eliquis
Calorie count, cont supplementation
Patient continues to work with speech
Appreciate psych
PT/OT
OOB to chair as tolerated
Case management for dispo planning
Continue to encourage incentive spirometer
Smoking cessation education
Subjective Data
-
Date of Service: August 22, 2023
Patient seen and examined at bedside, much improved in regards to alertness remains oriented to self and place, again required reorientation to recent current events and hospitalization. Patient currently eating and drinking. Denies nausea,
vomiting, fever, and chills.
Objective Data
-
Vital Signs
Temp Pulse Resp BP Pulse Ox
98.7 F 86 15 127/61 94
08/22/23 03:12 08/22/23 07:55 08/22/23 07:55 08/22/23 06:00 08/22/23 07:55
Intake and Output
08/21/23 08/22/23 08/23/23
06:59 06:59 06:59
Intake Total 492 / 492 1140 / 1140
Output Total 1200 / 1200 1400 / 1400 300 / 300
Balance -708 / -708 -260 / -260 -300 / -300
Intake:
Oral fluids 240 / 240 1140 / 1140
TPN/PPN 252 / 252
Output:
Liquid stool amount 300 / 300
Colostomy 300 / 300
Urine, Voided 1200 / 1200 1100 / 1100 300 / 300
Lab Results
08/22/23 03:16
08/22/23 03:16
Calcium 9.0 mg/dl (8.4-10.2) 08/22/23 03:16
Phosphorus 3.4 mg/dl (2.5-4.5) 08/18/23 03:26
Magnesium 2.6 mg/dl (1.6-2.3) H 08/22/23 03:16
Total Bilirubin 0.6 mg/dl (0.2-1.3) 08/20/23 05:00
Direct Bilirubin 0.5 mg/dl (0.0-0.4) H 08/06/23 03:27
AST 48 U/L (17-59) 08/20/23 05:00
ALT 40 U/L (0-50) 08/20/23 05:00
Alkaline Phosphatase 132 U/L (38-126) H 08/20/23 05:00
Total Protein 5.8 g/dl (6.3-8.2) L 08/20/23 05:00
Albumin 2.4 g/dl (3.5-5.0) L 08/20/23 05:00
Physical Exam
-
Oriented to self and place
No dyspnea on room air
Abd flat, soft, NT
stoma productive, with stool and air
Incision dressings clean/dry x 3
Ext warm, BP PT signal by doppler
--- NOTE | 2023-08-22 10:06 | W.PN.CD ---
Today's Communication / Plan
-
Continue Eliquis
Continue current short acting Dilt and Metoprolol (instead of prior outpatient rate control regimen)
- If swallowing improves can convert to the ER forms and give one time a day
Cardiology will sign off
Impression / Plan
-
Complex vascular surgery on 08/06/2023 for AAA/iliac disease/PAD
Ischemic colitis, postop vascular surgery S/P colostomy, flexible sigmoidoscopy and colectomy with a colostomy on 08/06/[address] Padilla
Fever, leukocytosis => improving on ATBs. As of 08/22/2023 the last fever was on 08/18/2023 at 100.5. WBC improved 37.6 => 13 as of 08/22/2023
Permanent atrial fibrillation
-on PO dilt and metoprolol with good rate control
-Restarted apixaban 08/15/23
-Amiodarone stopped 08/15/23
Anemia, total 6 U this admit
Left kidney infarction by CTA 08/14/2023
New NATALIE
HTN
NSVT, normal LVEF, continue BB
Abnormal troponin, peak 0.043, likely nonischemic myocardial injury in the setting of acute illness
CAD, PCI with stenting 1993 & 1994, CABG 2017, stable without CP
Prior CVAs
HLD, continue rosuvastatin 40mg when bowel function returns
Current smoker, cessation recommended
Delirium is much improved as of 08/22/2023
Subjective:
Oriented to person/place, and partially to situation. Much more alert and appropriate today.
Echo 05/2023: LVEF 50-55%
Physical Exam
Vital Signs/Labs
Vital Signs
Temp Pulse Resp BP Pulse Ox
98.7 F 86 15 127/61 94
08/22/23 03:12 08/22/23 07:55 08/22/23 07:55 08/22/23 06:00 08/22/23 07:55
08/21/23 08/22/23 08/23/23
06:59 06:59 06:59
Actual Weight 73.2 kg 73.2 kg
08/22/23 03:16
08/22/23 03:16
PT 15.4 Sec (11.4-14.6) H 08/06/23 03:27
INR 1.21 08/06/23 03:27
APTT Cancelled 08/15/23 12:00
Magnesium 2.6 mg/dl (1.6-2.3) H 08/22/23 03:16
Triglycerides 154 mg/dl (10-149) H 08/18/23 03:26
08/11/23
04:15
Mmk-I-Ednzgpgybat Pept 4920
Physical Exam
Constitutional: No acute distress
EENT: Anicteric
Cardiovascular: Rhythm/rate is irregular and S1S2 is normal
Respiratory: Respiratory effort normal and Lungs clear to auscul.
GI: Soft and Distention absent
Neuro/Psych: Alert and Oriented
Data Reviewed
-
Date of Service: August 22, 2023
--- NOTE | 2023-08-22 11:22 | W.PN.UPDATE ---
Update Note
Progress Note Update
patient seen chart reviewed. spoke with nursing. mr lopez is much improved. he was alert. he was pleasant. responded to my query as to whether he was receiving good care her that the nurses were taking good care of him. this is in contrast to his
demeanor earlier in his stay. clearly encephalopathy is clearing. have decreased seroquel to q 12 hours. would cut back by one dose every two days or so then dc. psych will sign off . please call us if you would like us to see him again.
[2023-08-22 12:46] LABS: Glucose - Point of Care 117 mg/dl (70-99)
[2023-08-22] MEDS: SEROQUEL PO (15:48)
--- NOTE | 2023-08-22 16:09 | W.PN.UPDATE ---
Update Note
Progress Note Update
Notified by RN that family and patient wanted to speak regarding code status. Patient oriented to self, place, and time. No evidence of delirium. Patient's Tabitha and [id number] at bedside. Patient, , and acxeaft-tk-lsn requesting
code status to be changed to DNR. Re-educated patient and family on definitions of code status (Full code vs. DNR) patient and family verbalize understanding and wish to proceed with changing to DNR. Bedside RN Bernie Valera also as witness to
patient and family request, will honor wishes and changed to DNR. Attending Dr. Balbuena updated via TT.
--- NOTE | 2023-08-22 16:54 | CM ---
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 Room air. Seen by Psych. Per nurse
assessment; confused, forgetful. WOC for stoma care & ostomy teaching with . PT & OT Evals; requires assist of 2, recommend skilled rehab.
Spoke with Yessica, [facility]; provided clinical update. They are interested however have not accepted the patient, due to the medical complexity, and their DON will need to review clinical info again when patient is closer to discharge.
Request from nurse Gibbs to provide Advanced Directives to family. Met with patient, Ila and brother in law Ed [facility] ([place] [phone]); provided Advanced Directives to with instructions to please provide to nurse when completed so
copy can be made for chart. somewhat hard of hearing and Ed provided his ph # in case staff unable to reach by phone, stating sometimes she cannot hear her phone. Discussed short term SNF for rehab and ostomy care/teaching; Yamile & Ed
were made aware that [facility] has not yet accepted. Provided [facility] SNF list in case another SNF needs to be selected.
Message from TONY Mcgovern; suspect the earliest d/c would be Thursday 08/24 but imagine more reliable day would be Friday.
Plan follow up with [facility] 08/24 for acceptance.
[2023-08-22 17:28] LABS: Glucose - Point of Care 135 mg/dl (70-99)
[2023-08-22] MEDS: DILAUDID 1 MG IV (19:34)
[2023-08-22] MEDS: LOPRESSOR 50 MG PO (19:36)
[2023-08-22] MEDS: FLUSH (NSS) 2 FLUSH IV (19:39)
[2023-08-22 21:24] LABS: Glucose - Point of Care 187 mg/dl (70-99)
--- NOTE | 2023-08-22 22:03 | PTCARENOTE ---
Pt received resting in bed. Pt did not have any dinner. AAOx2. Forgetful, repetitive with speech. Ask same questions over that were just answered. Can be agitated but easily calmed. Admits to 10/10 abdominal pain. VSS. Afebrile. Afib on CM.
Medicated with Dilaudid as ordered with good relief. Colostomy intact with stoma pink/flat, burped and emptied for 225mls brown/black liquid. Midline abdominal incision BRENDON renny intact. B/L groin dressings remain on and c/d/i. Neuro checks as
documented. #25 CC with yellow urine. Rest of assessment as documented. Maintained on Q2hr turns. Call johnston remains within reach. Will continue to monitor.
[2023-08-23] VITALS (12 sets, daily range): BP systolic 104–143; BP diastolic 63–80; BMI 23.0
[2023-08-23] MEDS: SEROQUEL 25 MG PO ×2 (02:09→12:37)
[2023-08-23 05:43] LABS: Hematocrit 28.1 % (39.0-52.0); Hemoglobin 9.6 g/dL (13.0-18.0); Mean Corp Hgb Conc. 34.2 g/dL (33.0-37.0); Mean Corpuscular Hgb 31.7 pg (27.0-31.0); Mean Corpuscular Volume 92.7 fL (80.0-94.0); Mean Platelet Volume 11.2 fL (7.4-10.4); Platelet Count 563 10^3/uL (130-400); Red Blood Cell Count 3.03 10^6/uL (4.70-6.10); Red Cell Dist. Width 14.4 % (11.5-14.5); White Blood Cell Count 13.2 10^3/uL (4.8-10.8)
[2023-08-23 06:09] LABS: Blood Urea Nitrogen 43 mg/dl (9-20); Calcium 8.6 mg/dl (8.4-10.2); Carbon Dioxide 22 mmol/L (22-30); Chloride 107 mmol/L (98-107); Estimated Creatinine Clearance 34 ml/min; Glucose 109 mg/dl (70-99); Potassium 4.4 mmol/L (3.5-5.1); Sodium 134 mmol/L (135-145); eGFR 37.82
[2023-08-23 07:31] LABS: Glucose - Point of Care 113 mg/dl (70-99)
[2023-08-23] MEDS: SPIRIVA RESPIMAT 2.5 MCG 2 PUFF INH (07:51)
--- NOTE | 2023-08-23 07:54 | W.PN.VS ---
Today's Communication / Plan
-
Discussed with Dr. Bloom
Assessment/Plan
-
Plan/ POD# 18 PMEG/bilat CFAE. Post op course c/b ischemic colitis requiring colectomy/ostomy.
Cont ASA/eliquis
Calorie count, cont supplementation
Patient continues to work with speech
Appreciate psych
PT/OT
OOB to chair as tolerated
Case management for dispo planning
Continue to encourage incentive spirometer
Smoking cessation education
Subjective Data
-
Date of Service: August 23, 2023
Patient seen at bedside this a.m. he offers no complaints at this time. He is oriented to self and place. He is unaware of the year and occasionally the situation. No events overnight
Objective Data
-
Vital Signs
Temp Pulse Resp BP Pulse Ox
97.7 F 85 34 127/67 98
08/23/23 07:40 08/23/23 02:00 08/23/23 02:00 08/23/23 00:47 08/22/23 20:02
Intake and Output
08/22/23 08/23/23 08/24/23
06:59 06:59 06:59
Intake Total 1140 / 1140 860 / 860
Output Total 1400 / 1400 1425 / 1425
Balance -260 / -260 -565 / -565
Intake:
Oral fluids 1140 / 1140 860 / 860
Output:
Liquid stool amount 300 / 300 225 / 225
Colostomy 300 / 300 225 / 225
Urine, Balbuena 400 / 400
Urine, Voided 1100 / 1100 800 / 800
Lab Results
08/23/23 05:35
08/23/23 05:35
Calcium 8.6 mg/dl (8.4-10.2) 08/23/23 05:35
Phosphorus 3.4 mg/dl (2.5-4.5) 08/18/23 03:26
Magnesium 2.6 mg/dl (1.6-2.3) H 08/22/23 03:16
Total Bilirubin 0.6 mg/dl (0.2-1.3) 08/20/23 05:00
Direct Bilirubin 0.5 mg/dl (0.0-0.4) H 08/06/23 03:27
AST 48 U/L (17-59) 08/20/23 05:00
ALT 40 U/L (0-50) 08/20/23 05:00
Alkaline Phosphatase 132 U/L (38-126) H 08/20/23 05:00
Total Protein 5.8 g/dl (6.3-8.2) L 08/20/23 05:00
Albumin 2.4 g/dl (3.5-5.0) L 08/20/23 05:00
Physical Exam
-
Oriented to self and place
No dyspnea on room air
Abd flat, soft, NT
stoma productive, with stool and air
Incision dressings clean/dry x 3
Ext warm, BP PT signal by doppler
[2023-08-23] MEDS: NOVOLOG FLEXPEN-LOW RESISTANCE SC ×3 (08:31→17:06)
[2023-08-23] MEDS: LOW STRENGTH ASPIRIN 81 MG PO (08:32)
[2023-08-23] MEDS: ELIQUIS 5 MG PO ×2 (08:32→20:46)
[2023-08-23] MEDS: VITAMIN B-12 100 MCG PO (08:32)
[2023-08-23] MEDS: CARDIZEM 60 MG PO ×3 (08:32→21:50)
[2023-08-23] MEDS: FOLVITE 1 MG PO (08:33)
[2023-08-23] MEDS: LOPRESSOR 50 MG PO ×2 (08:33→20:46)
[2023-08-23 12:00] LABS: Glucose - Point of Care 106 mg/dl (70-99)
[2023-08-23] MEDS: DILAUDID 1 MG IV (12:39)
--- NOTE | 2023-08-23 14:58 | PTCARENOTE ---
Pt has co of 9-10 pain in aabd. Dilaudid given . Pt more comfortable at this time.
[2023-08-23 17:04] LABS: Glucose - Point of Care 115 mg/dl (70-99)
[2023-08-23] MEDS: DILAUDID 0.5 MG IV (20:57)
[2023-08-23] MEDS: CATHFLO/ACTIVASE 2 MG IV (23:30)
[2023-08-24] VITALS (10 sets, daily range): BP systolic 102–143; BP diastolic 60–92; BMI 22.8
[2023-08-24] MEDS: ZYPREXA 2.5 MG IM (00:47)
[2023-08-24] MEDS: STERILE WATER FOR INJECTION 2.10000000000000009 ML IM (00:49)
[2023-08-24] MEDS: DILAUDID 1 MG IV (01:07)
--- NOTE | 2023-08-24 01:20 | VATNOTE ---
Unable to obtain a blood return from right picc after cath pretty administration in purple lumen. After assessment of need, patient does not possess need for picc at this time. PRESCHOOL TEACHER'S ASSISTANT agrees that further evaluation of picc placement and administration of
second dose of cath pretty is not needed. This VAT RN established peripheral access in left forearm. Awaiting order to remove PICC. Primary RN aware of plan and notified NOT to use PICC.
--- NOTE | 2023-08-24 02:39 | PTCARENOTE ---
Earlier in shift Pt had complaints of pain, medication given (see MAR), reassessment pt napping respirations even and unlabored. Assessment of PICC showing no blood return, IV team notified, night OCEANOGRAPHER GEOLOGICAL ordered Cathflo. Vitals stable at that time.
Later in shift Pt began to get upset and more confused, Pt trying to pull on PICC and other lines. Emotional support given, Scheduled Seroquel given. Shortly after Pt began with hallucinations, grabbing at nurses, becoming more agitated. More
emotional support and redirecting given. Pt stating he is 'not impressed'. Night OCEANOGRAPHER GEOLOGICAL informed, order for restrains placed and one time order for Zyprexa. Pt remains on med sitter. Pain medication given for complains of pain. Vitals remain stable at
this time. Assessment care and vitals as documented.
[2023-08-24 04:37] LABS: Hematocrit 25.3 % (39.0-52.0); Hemoglobin 8.5 g/dL (13.0-18.0); Mean Corp Hgb Conc. 33.6 g/dL (33.0-37.0); Mean Corpuscular Hgb 31.1 pg (27.0-31.0); Mean Corpuscular Volume 92.7 fL (80.0-94.0); Platelet Count 566 10^3/uL (130-400); Red Blood Cell Count 2.73 10^6/uL (4.70-6.10); Red Cell Dist. Width 14.1 % (11.5-14.5); White Blood Cell Count 12.6 10^3/uL (4.8-10.8)
[2023-08-24 05:06] LABS: Blood Urea Nitrogen 39 mg/dl (9-20); Calcium 8.8 mg/dl (8.4-10.2); Carbon Dioxide 21 mmol/L (22-30); Chloride 108 mmol/L (98-107); Estimated Creatinine Clearance 36 ml/min; Glucose 94 mg/dl (70-99); Potassium 4.7 mmol/L (3.5-5.1); Sodium 134 mmol/L (135-145)
[2023-08-24] MEDS: SPIRIVA RESPIMAT 2.5 MCG INH (07:55)
[2023-08-24] MEDS: NOVOLOG FLEXPEN-LOW RESISTANCE SC (08:40)
[2023-08-24] MEDS: CARDIZEM 60 MG PO ×3 (08:41→21:35)
[2023-08-24] MEDS: ELIQUIS 5 MG PO ×2 (08:41→19:47)
[2023-08-24] MEDS: LOW STRENGTH ASPIRIN 81 MG PO (08:41)
[2023-08-24] MEDS: VITAMIN B-12 100 MCG PO (08:41)
[2023-08-24] MEDS: LOPRESSOR 50 MG PO ×2 (08:41→19:48)
[2023-08-24] MEDS: FOLVITE 1 MG PO (08:41)
--- NOTE | 2023-08-24 09:08 | W.PN.VS ---
Today's Communication / Plan
-
d/c accu checks
encourage po
? PICC line removal jose am
Assessment/Plan
-
Plan/ POD# 19 PMEG/bilat CFAE. Post op course c/b ischemic colitis requiring colectomy/ostomy.
Cont ASA/eliquis
Calorie count, cont supplementation
Patient continues to work with speech
Appreciate psych
PT/OT
OOB to chair as tolerated
Case management for dispo planning
Continue to encourage incentive spirometer
Smoking cessation education
Subjective Data
-
Date of Service: August 24, 2023
Patient more conversant this am
Objective Data
-
Vital Signs
Temp Pulse Resp BP Pulse Ox
98.3 F 89 20 120/78 98
08/24/23 07:52 08/24/23 06:00 08/24/23 06:00 08/24/23 06:00 08/24/23 06:00
Intake and Output
08/23/23 08/24/23 08/25/23
06:59 06:59 06:59
Intake Total 860 / 860 240 / 240
Output Total 1425 / 1425 950 / 950
Balance -565 / -565 -710 / -710
Intake:
Oral fluids 860 / 860 240 / 240
Output:
Liquid stool amount 225 / 225
Colostomy 225 / 225
Urine, Balbuena 400 / 400
Urine, Voided 800 / 800 950 / 950
Other:
Number of unmeasured liquid
stools
Colostomy 50
Lab Results
08/24/23 04:22
08/24/23 04:22
Calcium 8.8 mg/dl (8.4-10.2) 08/24/23 04:22
Phosphorus 3.4 mg/dl (2.5-4.5) 08/18/23 03:26
Magnesium 2.6 mg/dl (1.6-2.3) H 08/22/23 03:16
Total Bilirubin 0.6 mg/dl (0.2-1.3) 08/20/23 05:00
Direct Bilirubin 0.5 mg/dl (0.0-0.4) H 08/06/23 03:27
AST 48 U/L (17-59) 08/20/23 05:00
ALT 40 U/L (0-50) 08/20/23 05:00
Alkaline Phosphatase 132 U/L (38-126) H 08/20/23 05:00
Total Protein 5.8 g/dl (6.3-8.2) L 08/20/23 05:00
Albumin 2.4 g/dl (3.5-5.0) L 08/20/23 05:00
Physical Exam
-
rrr
ctab
nt,nd,soft
+ output in ostomy
[2023-08-24] MEDS: SEROQUEL PO (11:50)
--- NOTE | 2023-08-24 12:42 | PTOTSP ---
ST Tx Session
Mild/functional oral dysphagia; improved since previous session
Pt received awake/alert with spouse at the bedside. HOB raised upright for PO trials of regular and soft solids. Self fed demo grossly functional mastication and bolus was orally cleared. Thin liquids by straw serial sips swallow appears prompt. No
overt s/sx of aspiration observed during this session
Recommend
1. Advance to regular solids/thin liquids
2. Maintain aspiration precautions and meal set up assist as needed
3. Small bites and slow rate
4. Meds oral per pt preference and RN discretion
5. CHAINSTITCH BINDER following; monitor diet tolerance
[2023-08-24] MEDS: DILAUDID 0.5 MG IV ×2 (17:16→20:31)
[2023-08-24] MEDS: SEROQUEL 25 MG PO ×3 (21:37→23:46)
[2023-08-25] VITALS (11 sets, daily range): BP systolic 94–150; BP diastolic 58–86; BMI 22.5
[2023-08-25] MEDS: DILAUDID 0.5 MG IV (01:46)
--- NOTE | 2023-08-25 02:05 | PTCARENOTE ---
Pt began to become slightly agitated around 2100, emotional support given. Pt continuing to try and get out of bed, when redirected getting upset saying cusswords. emotional support given and Pt agreed to take PRN medication (see MAR). Pt continuing
to need redirection from med sitter and RN's. Around 2330 Pt agitation becoming physical again. Night DETAIL SUPERVISOR made aware, order for b/l restraints w 4rail placed.
[2023-08-25 04:21] LABS: Hemoglobin 9.3 g/dL (13.0-18.0); Mean Corp Hgb Conc. 33.2 g/dL (33.0-37.0); Mean Corpuscular Hgb 31.4 pg (27.0-31.0); Mean Corpuscular Volume 94.6 fL (80.0-94.0); Mean Platelet Volume 10.7 fL (7.4-10.4); Platelet Count 564 10^3/uL (130-400); Red Blood Cell Count 2.96 10^6/uL (4.70-6.10); White Blood Cell Count 13.8 10^3/uL (4.8-10.8)
[2023-08-25 04:49] LABS: ALT (SGPT) 60 U/L (0-50); AST (SGOT) 63 U/L (17-59); Albumin 2.9 g/dl (3.5-5.0); Alkaline Phosphatase 190 U/L (38-126); Blood Urea Nitrogen 34 mg/dl (9-20); Calcium 8.9 mg/dl (8.4-10.2); Carbon Dioxide 23 mmol/L (22-30); Chloride 104 mmol/L (98-107); Estimated Creatinine Clearance 38 ml/min; Glucose 107 mg/dl (70-99); Magnesium 2.5 mg/dl (1.6-2.3); Phosphorus 4.1 mg/dl (2.5-4.5); Potassium 4.4 mmol/L (3.5-5.1); Sodium 135 mmol/L (135-145); Total Bilirubin 0.6 mg/dl (0.2-1.3); Total Protein 6.9 g/dl (6.3-8.2); Triglycerides 195 mg/dl (10-149); eGFR 43.56
[2023-08-25] MEDS: SPIRIVA RESPIMAT 2.5 MCG 2 PUFF INH (07:34)
--- NOTE | 2023-08-25 07:44 | W.PN.VS ---
Addendum entered and electronically signed by Zeb Rivera MD 08/25/23 12:25:
Seen and examined with RAHEEL Diaz. Agree with findings and plan as noted below.
Original Note:
Today's Communication / Plan
-
Seen and assessed with Dr. Rivera
Assessment/Plan
-
Plan/ POD# 21 PMEG/bilat CFAE. Post op course c/b ischemic colitis requiring colectomy/ostomy.
Cont ASA/eliquis
Calorie count, cont supplementation
Patient continues to work with speech
Appreciate psych
PT/OT
OOB to chair as tolerated
Case management for dispo planning
Continue to encourage incentive spirometer
Smoking cessation education
Ready for SNF when accepted
Subjective Data
-
Date of Service: August 25, 2023
Patient seen and assessed at bedside with Dr. Rivera. No changes overnight, patient remains calm with intermittent confusion
Objective Data
-
Vital Signs
Temp Pulse Resp BP Pulse Ox
98.2 F 88 19 109/77 99
08/25/23 07:20 08/25/23 07:37 08/25/23 07:37 08/25/23 04:00 08/25/23 07:37
Intake and Output
08/24/23 08/25/23 08/26/23
06:59 06:59 06:59
Intake Total 240 / 240 1100 / 1100
Output Total 950 / 950 620 / 620
Balance -710 / -710 480 / 480
Intake:
Oral fluids 240 / 240 1100 / 1100
Output:
Liquid stool amount 120 / 120
Colostomy 120 / 120
Urine, Voided 950 / 950 500 / 500
Other:
Number of unmeasured liquid
stools
Colostomy 50
Lab Results
08/25/23 04:12
08/25/23 04:12
Calcium 8.9 mg/dl (8.4-10.2) 08/25/23 04:12
Phosphorus 4.1 mg/dl (2.5-4.5) 08/25/23 04:12
Magnesium 2.5 mg/dl (1.6-2.3) H 08/25/23 04:12
Total Bilirubin 0.6 mg/dl (0.2-1.3) 08/25/23 04:12
Direct Bilirubin 0.5 mg/dl (0.0-0.4) H 08/06/23 03:27
AST 63 U/L (17-59) H 08/25/23 04:12
ALT 60 U/L (0-50) H 08/25/23 04:12
Alkaline Phosphatase 190 U/L (38-126) H 08/25/23 04:12
Total Protein 6.9 g/dl (6.3-8.2) 08/25/23 04:12
Albumin 2.9 g/dl (3.5-5.0) L 08/25/23 04:12
Physical Exam
-
Oriented to self and place
No dyspnea on room air
Abd flat, soft, NT
stoma productive, with stool and air
Incision dressings clean/dry x 3
Ext warm, BP PT signal by doppler
[2023-08-25] MEDS: ELIQUIS 5 MG PO ×2 (08:55→19:51)
[2023-08-25] MEDS: FOLVITE 1 MG PO (09:01)
[2023-08-25] MEDS: LOPRESSOR 50 MG PO ×2 (09:01→19:51)
[2023-08-25] MEDS: LOW STRENGTH ASPIRIN 81 MG PO (09:01)
[2023-08-25] MEDS: CARDIZEM 60 MG PO ×3 (09:05→19:51)
[2023-08-25] MEDS: VITAMIN B-12 100 MCG PO (09:05)
--- NOTE | 2023-08-25 11:41 | PTCARENOTE ---
Pt will not eat. Many attempts to try and feed him
[2023-08-25] MEDS: SEROQUEL 25 MG PO ×3 (12:42→23:24)
[2023-08-25] MEDS: DILAUDID 1 MG IV ×2 (13:40→19:51)
--- NOTE | 2023-08-25 13:55 | PTCARENOTE ---
Pt refuses to eat states he is not hungry Pt co of 02/16 pain given Dilaudid
[2023-08-25] MEDS: FLUSH (NSS) 3 FLUSH IV (19:52)
[2023-08-26] VITALS (15 sets, daily range): BP systolic 102–150; BP diastolic 63–101; PULSE 94; BMI 22.0
[2023-08-26] MEDS: DILAUDID 1 MG IV ×2 (00:42→04:36)
[2023-08-26] MEDS: FLUSH (NSS) 2 FLUSH IV (00:43)
[2023-08-26] MEDS: SEROQUEL 25 MG PO ×3 (02:44→23:18)
--- NOTE | 2023-08-26 02:57 | PTCARENOTE ---
medsitter effective at maintaining safety- pt is ax1- thinks he is in a restaurant or on aship- talks to people who are not there- slightly agitated at times . Seroquel given see mar- pain meds given for abd pain see mar- colostomy with frequent
need to be burped. has not required restraints afib controlled afebrile bp wnl-
--- NOTE | 2023-08-26 06:00 | PTCARENOTE ---
pt was up for most of the night- med sitter very effective for safety as pt does follow command and is cooperative when reminded to not pick/pull or jump out of bed without assistance
[2023-08-26] MEDS: SPIRIVA RESPIMAT 2.5 MCG 2 PUFF INH (08:22)
[2023-08-26] MEDS: LOPRESSOR 50 MG PO (08:36)
[2023-08-26] MEDS: FOLVITE 1 MG PO (08:36)
[2023-08-26] MEDS: VITAMIN B-12 100 MCG PO (08:36)
[2023-08-26] MEDS: LOW STRENGTH ASPIRIN 81 MG PO (08:36)
[2023-08-26] MEDS: CARDIZEM 60 MG PO ×3 (08:36→20:21)
[2023-08-26] MEDS: ELIQUIS 5 MG PO ×2 (08:37→20:21)
--- NOTE | 2023-08-26 09:16 | W.PN.UPDATE ---
Update Note
Progress Note Update
Midline renny removed at bedside. Wound c/d/i, left open to air. Stoma warm and pink with function.
--- NOTE | 2023-08-26 09:48 | CM ---
Addendum entered by Julita Dawkins RN 08/26/23 10:22:
PT & OT 08/25; requires assist of 2, not ambulatory, dependent for LE self care, recommend skilled rehab.
Original Note:
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 Room air. Wound open to air, renny out.
Seen by Psych. Per nurse assessment; confused, forgetful. Medsitter. [facility] for stoma care & ostomy teaching with .
PT 08/20 & OT 08/21 Evals; requires assist of 2, recommend skilled rehab. PT & OT 08/24: Nursing asking OT to hold at this time. Patient just recieved Dilaudid and is lethargic at this time. Nursing also reporting that patient is refusing to eat. Will
follow up as appropriate.
Spoke with Yessica, [facility]; they are unable to accept the patient due to ongoing agitation and behaviors.
Message to Dr Balbuena, Kalyani JIMENEZ & Dr Barber; [facility] not accepting due to ongoing agitation and behaviors. Also Medsitter will need to be discontinued before a SNF will accept. No point making more SNF referrals at this time until
patient's behavior is optimized.
Spoke with patient's and provided update that [facility] declined and will wait to make more referrals until patient more cooperative. has SNF list and does not know where else she would like referrals. She wonders if patient would
be good enough to go home.
Plan follow patient's mentation/behavior.
Plan follow patient's progress with PT/OT.
Plan discuss SNF vs home with VN with .
--- NOTE | 2023-08-26 10:06 | W.PN.VS ---
Addendum entered and electronically signed by Linwood Balbuena III, MD 08/26/23 13:42:
This patient was seen and examined with BEBA Garcia. I agree with the history and physical exam as well as the assessment and plan.
Signed:
Linwood Balbuena III, MD
[facility] Vascular Surgery
[phone] ([phone])
Addendum entered and electronically signed by BEBA Garcia 08/26/23 12:21:
Marinol on national backorder, substation recommendation by pharmacy is Megace will not initiate given patient has significant comorbidities.
Original Note:
Today's Communication / Plan
-
See below.
Assessment/Plan
-
Plan/ POD# 22 PMEG/bilat CFAE. Post op course c/b ischemic colitis requiring colectomy/ostomy.
Cont ASA/eliquis
Continue to keep bilateral surgical incisions at groin covered with dressing
Continue p.o. supplementation and high-protein diet
Will add appetite stimulant Megace as Marinol on national backorder
Discontinued IV pain medication added [id number] Tylenol with p.o. pain medication in hopes of decreasing intermittent delirium
Patient continues to work with speech
Appreciate psych
PT/OT
OOB to chair as tolerated, with progression to ambulation
Case management for dispo planning
Continue to encourage incentive spirometer
Smoking cessation education
Ready for SNF when accepted
Subjective Data
-
Date of Service: August 26, 2023
Patient seen and examined at bedside, remains oriented to self required reorientation to place and time. Denies nausea, vomiting, fever, and chills. Reports tolerating p.o. intake. Does endorse continued intermittent pain at abdominal incision
particularly with movement.
Objective Data
-
Vital Signs
Temp Pulse Resp BP Pulse Ox
98.0 F 97 18 135/77 95
08/26/23 03:57 08/26/23 08:36 08/26/23 08:27 08/26/23 08:36 08/26/23 08:27
Intake and Output
08/25/23 08/26/23 08/27/23
06:59 06:59 06:59
Intake Total 1100 / 1100
Output Total 820 / 820 700 / 700
Balance 280 / 280 -700 / -700
Intake:
Oral fluids 1100 / 1100
Output:
Liquid stool amount 120 / 120
Colostomy 120 / 120
Urine, Voided 700 / 700 700 / 700
Lab Results
08/25/23 04:12
08/25/23 04:12
Calcium 8.9 mg/dl (8.4-10.2) 08/25/23 04:12
Phosphorus 4.1 mg/dl (2.5-4.5) 08/25/23 04:12
Magnesium 2.5 mg/dl (1.6-2.3) H 08/25/23 04:12
Total Bilirubin 0.6 mg/dl (0.2-1.3) 08/25/23 04:12
Direct Bilirubin 0.5 mg/dl (0.0-0.4) H 08/06/23 03:27
AST 63 U/L (17-59) H 08/25/23 04:12
ALT 60 U/L (0-50) H 08/25/23 04:12
Alkaline Phosphatase 190 U/L (38-126) H 08/25/23 04:12
Total Protein 6.9 g/dl (6.3-8.2) 08/25/23 04:12
Albumin 2.9 g/dl (3.5-5.0) L 08/25/23 04:12
Physical Exam
-
Oriented to self and place
No dyspnea on room air
Abd flat, soft, tender to previous staple sites
stoma productive, with stool and air
Incision dressings clean/dry x 3
Ext warm, BP PT signal by doppler
--- NOTE | 2023-08-26 10:30 | PTOTSP ---
Dysphagia Therapy
Patient with signs of mild oral stage differences including prolonged sustained bite/mastication of solids likely impacted by a combination of edentulous status and AMS. Continue diet as ordered (regular, thin) to avoid limiting food choices given
poor PO intake (0-5%). However, please assist patient with picking soft/moist items from the menu. Full supervision recommended with PO intake given on-going AMS with feeding assistance as needed.
Recommend
1. Regular solids (pick soft/moist foods)/thin liquids
2. Aspiration precautions
3. Full supervision, assist as needed
4. Small bites and slow rate, liquid wash to assist with oral clearance
5. Meds as best tolerated
6. Dysphagia tx at the acute care level to determine if further diet modification warranted.
[2023-08-26] MEDS: TYLENOL 650 MG PO ×2 (11:55→17:25)
--- NOTE | 2023-08-26 12:26 | PTCARENOTE ---
Patient AAOx1-2, frequent naps. Confused, visual hallucinations. On medsitter and bed/chair alarms. On RA, 99%. VSS. Afib on monitor. Colostomy stooling, CDI. Midline abdominal incision and b/l groin incisions CDI with renny and sutures. Pulses
intact. Call johnston within reach of patient, educated on how to use it. Continuing to closely monitor.
--- NOTE | 2023-08-26 14:56 | WOUNDNOTE ---
WON RN NOTE: Appliance changed today, patient oriented to self, still not a candidate for teaching. Stoma pink, flat, slightly recessed functioning for brown stool. Peristomal skin is intact no leakage from appliance. Supplies at bedside, will
follow for teaching when appropriate.
--- NOTE | 2023-08-26 18:44 | PTCARENOTE ---
Family provided copy of patients advanced directive. Placed in chart.
[2023-08-26] MEDS: LOPRESSOR PO (20:21)
--- NOTE | 2023-08-26 20:43 | PTCARENOTE ---
Son and daughter in law at bedside brought pt slovak food, pt only ate a few bites.
Family voiced concerns about patient's being unable to handle everything including discharge planning. Requested to speak with director of social work tomorrow. Updated on plan of care. family reported pt may not tolerate tramadol for pain, since son had
hallucinations after receiving tramadol for surgery in the past. family reported pt tolerated benzos in the past for anxiety and pain and was taking them at home.
[2023-08-26] MEDS: TYLENOL PO (23:22)
[2023-08-27] VITALS (11 sets, daily range): BP systolic 117–166; BP diastolic 72–108; BMI 22.6
--- NOTE | 2023-08-27 03:36 | PTCARENOTE ---
Addendum entered by Jean Bird RN 08/27/23 05:07:
Pt c/o back pain 01/16. Pt stating 'give me the shot'. Prn 2.5 oxycodone provided per aug. Repositioned for comfort. Call johnston within reach.
Original Note:
At start of shift pt very confused and restless, trying to get oob and go home. Re-oriented to situation, place, and time. Pt was cooperative after then and has been since. Pt slept on/off throughout the night. Pt denied any pain overnight; no prn
meds needed. Tele showing Afib 80-100s. Sp02 98-100% RA. Pt pulls at bilateral groin dressings and gown. Frequent reminders given to keep dressings on. Neurovascular checks unchanged. Colostomy intact, burped several times. Call johnston within reach,
pt forgets how to use and calls out 'nurse'. Bed alarm set for safety. Med sitter in place. RN sitting outside closest nursing station.
[2023-08-27 04:21] LABS: Hematocrit 25.1 % (39.0-52.0); Hemoglobin 8.6 g/dL (13.0-18.0); Mean Corp Hgb Conc. 34.3 g/dL (33.0-37.0); Mean Corpuscular Hgb 31.3 pg (27.0-31.0); Mean Corpuscular Volume 91.3 fL (80.0-94.0); Mean Platelet Volume 10.5 fL (7.4-10.4); Platelet Count 589 10^3/uL (130-400); Red Blood Cell Count 2.75 10^6/uL (4.70-6.10); White Blood Cell Count 14.3 10^3/uL (4.8-10.8)
[2023-08-27] MEDS: ROXICODONE 2.5 MG PO (04:26)
[2023-08-27 05:06] LABS: Blood Urea Nitrogen 34 mg/dl (9-20); Calcium 8.9 mg/dl (8.4-10.2); Carbon Dioxide 18 mmol/L (22-30); Chloride 108 mmol/L (98-107); Estimated Creatinine Clearance 34 ml/min; Glucose 116 mg/dl (70-99); Potassium 4.2 mmol/L (3.5-5.1); Sodium 133 mmol/L (135-145); eGFR 37.82
--- NOTE | 2023-08-27 05:19 | PTCARENOTE ---
Received a call from med sitter pt vomited on himself. Pt stated he drank some water and threw up. Brown bile on chest, gown and blankets. PT was not sitting up and was laying flat. brycen glenna offered; per aug. Pt cleaned up. linens changed. Pt
educated on the importance of sitting up before drinking water. Fluids removed away from pt, for supervision in future. jewell johnston within reach. дмитрий suresh at bedside.
[2023-08-27] MEDS: ZOFRAN 4 MG IV (05:24)
[2023-08-27] MEDS: TYLENOL PO (05:24)
[2023-08-27] MEDS: SPIRIVA RESPIMAT 2.5 MCG INH (08:17)
[2023-08-27] MEDS: ROXICODONE 5 MG PO ×2 (09:06→14:44)
[2023-08-27] MEDS: LOPRESSOR 50 MG PO ×2 (09:06→20:07)
[2023-08-27] MEDS: LOW STRENGTH ASPIRIN 81 MG PO (09:06)
[2023-08-27] MEDS: FOLVITE 1 MG PO (09:06)
[2023-08-27] MEDS: CARDIZEM 60 MG PO ×3 (09:06→21:57)
[2023-08-27] MEDS: VITAMIN B-12 100 MCG PO (09:06)
[2023-08-27] MEDS: ELIQUIS 5 MG PO ×2 (09:07→20:07)
--- NOTE | 2023-08-27 09:49 | PN.CDI ---
CDI
- -
CDI:
Physician Documentation Request
Admit Date: 08/05/23 05:57
Dear Doctor/ AIR BAG CURER
Please review the following and provide your response in the progress notes.
Clinical Indicators:
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
Nutrition note 08/24, ' 156 lb 8.451 oz BMI 22.5 normal range 08/24, 166 lbs 14.239 oz 08/17, 169 lbs 15.622 oz 08/14, 178 lbs 08/05. Suspect weight changes during hospitalization related to both fluid and poor po intakes. Note pt was provided with Lasix
08/07-08/10. Pt with significant 6% weight loss over the past week (08/17 to 08/24).Weight hx: 167 lb 14.4 oz 05/08. Based on review of records dry weight appears to fluctuate around 170lb. Per ASPEN/AND guidelines, pt meets for severe malnutrition in the
context of acute illness as evidenced by <50% intakes x >3 days (since TPN d/c), and >2% weight loss x 1 week...'
Based on the information, which of the following most accurately represents the patient's nutritional status?
Severe Protein Calorie Malnutrition
Moderate Malnutrition
Other (please specify)
[place] Criteria (ACP Hospitalist 2017)
2 or more criteria must be present for either
non severe or severe malnutrition
Note that the criteria differs related to the
presence of an acute or chronic illness
Acute Illness Chronic Illness
Energy Intake Non Severe: <75% for >7 days Non Severe: <75% for >1 month
Severe: <50% for >5 days Severe: <75% for >1 month
Weight Loss Non Severe: 1-2% over 1 week Non Severe: 5% over 1 month
5% over 1 month 7.5% over 3 months
7.5% over 3 months 10% over 6 months
1 year N/A 20% over 1 year
Severe: >2% over 1 week Severe: >5% over 1 month
>5% over 1 month >7.5% over 3 months
>7.5% over 3 months >10% over 6 months
1 year N/A >20% over 1 year
Body Fat Non Severe: Mild Decrease Non Severe: Mild Loss
Severe: Moderate Decrease Severe: Severe Loss
Muscle Mass Non Severe: Mild Decrease Non Severe: Mild Loss
Severe: Moderate Decrease Severe: Severe Loss
Fluid Accumulation Non Severe: Mild Accumulation Non Severe: Mild Accumulation
Severe: Moderate to severe Severe: Moderate to severe
accumulation accumulation
Reduced Car Rental Manager Strength Non Severe: N/A Non Severe: N/A
Severe: Measurably reduced Severe: Measurably reduced
Use of terms such as suspected, likely, concern for, or probable (associated with a specific diagnosis that is being evaluated, monitored, or treated as if it exists) are acceptable and can be coded in the inpatient setting, when documented at the
time of discharge.
Thank you,
Emely Monaco RN
CDI Specialist
[place] [facility]
Please use your independent medical judgment in providing your response.
--- NOTE | 2023-08-27 10:35 | W.PN.VS ---
Addendum entered and electronically signed by Zeb Rivera MD 08/27/23 11:25:
Seen and examined with RAHEEL Fuentes. Agree with findings and plan as noted below and discussed. Again encouraged increased p.o. intake. Patient notes he will eat pudding. Will try to increase protein supplementation.
Original Note:
Today's Communication / Plan
-
Patient seen and examined at bedside with Dr. Zeb Rivera, below plan reviewed with attending
Assessment/Plan
-
Plan/ POD# 23 PMEG/bilat CFAE. Post op course c/b ischemic colitis requiring colectomy/ostomy.
Cont ASA/eliquis
Continue to keep bilateral surgical incisions at groin covered with dressing
Continue p.o. supplementation and high-protein diet
Decreased Seroquel per psychiatry taper recommendations
PT/OT
OOB to chair as tolerated, with progression to ambulation
Case management for dispo planning
Continue to encourage incentive spirometer
Smoking cessation education
Subjective Data
-
Date of Service: August 27, 2023
Patient seen and examined at bedside, confusion improving and he is agreeable to continue to increase PO intake; education on importance of nutrition provided. Denies nausea, vomiting, fever, and chills.
Objective Data
-
Vital Signs
Temp Pulse Resp BP Pulse Ox
98.8 F 94 16 149/89 97
08/27/23 07:44 08/27/23 08:18 08/27/23 08:18 08/27/23 08:00 08/27/23 09:13
Intake and Output
08/26/23 08/27/23 08/28/23
06:59 06:59 06:59
Output Total 700 / 700 500 / 500
Balance -700 / -700 -500 / -500
Output:
Urine, Voided 700 / 700 500 / 500
Lab Results
08/27/23 04:07
08/27/23 04:07
Calcium 8.9 mg/dl (8.4-10.2) 08/27/23 04:07
Phosphorus 4.1 mg/dl (2.5-4.5) 08/25/23 04:12
Magnesium 2.5 mg/dl (1.6-2.3) H 08/25/23 04:12
Total Bilirubin 0.6 mg/dl (0.2-1.3) 08/25/23 04:12
Direct Bilirubin 0.5 mg/dl (0.0-0.4) H 08/06/23 03:27
AST 63 U/L (17-59) H 08/25/23 04:12
ALT 60 U/L (0-50) H 08/25/23 04:12
Alkaline Phosphatase 190 U/L (38-126) H 08/25/23 04:12
Total Protein 6.9 g/dl (6.3-8.2) 08/25/23 04:12
Albumin 2.9 g/dl (3.5-5.0) L 08/25/23 04:12
Physical Exam
-
Oriented to self and place, continue to reorient to situation
No dyspnea on room air
Abd flat, soft, tender to previous staple sites
stoma productive, with stool and air
Incision dressings clean/dry x 3
Ext warm
[2023-08-27] MEDS: TYLENOL 650 MG PO ×3 (11:22→23:01)
--- NOTE | 2023-08-27 11:52 | CM ---
Addendum entered by Julita Dawkins RN 08/27/23 12:06:
Additionally, phone call to Fabiano Guajardo, son; left message requesting callback for d/c planning.
Original Note:
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 Room air. Per nurse assessment; confused,
restless. Medsitter. [facility] for stoma care & ostomy teaching with . PT & OT 08/25; requires assist of 2, not ambulatory, dependent for LE self care, recommend skilled rehab.
Spoke with patient's Tabitha; she agrees to referrals near [place] including [place] & [place]. Mentioned [facility] in [place] with 5 star rating and she agrees to the referral. states her son Fabiano Guajardo and RUSSELL Abraham
Bennett, who live in [place], want to be involved re; patient's care, and she is designating Fabiano as the primary contact - his cell [phone]. Message sent to Dr Balbuena and Lashonda Fuentes with update on family contacts.
15 SNF referrals placed in [facility].
Phone call to [facility]; left message requesting review/response to referral.
Anticipate SNFs will request patient to be off Medsitter 24 hrs before discharge.
Plan follow up SNF referrals.
--- NOTE | 2023-08-27 21:27 | PTCARENOTE ---
Received patient in bed, following commands, denying pain, oriented to self and place. Afib, 70s-90s, palpable radial and pedal pulses bilaterally. BP stable, 110s/80s. 94% on room air, lung sounds diminished throughout. Poor appetite. #25 condom
cath intact, draining yellow urine. Colostomy on right side, putting out liquid brown stool. Midline incision BRENDON, approximated. Aquacell on right fem, CDI. Dry dressing on left fem, CDI. Left forearm IV patent, WNL. Call johnston within reach, patient
resting comfortably.
[2023-08-28] VITALS (13 sets, daily range): BP systolic 103–151; BP diastolic 55–108; BMI 22.6
[2023-08-28] MEDS: ROXICODONE 5 MG PO (01:31)
[2023-08-28] MEDS: SEROQUEL 25 MG PO ×2 (02:49→08:42)
[2023-08-28 04:48] LABS: Hematocrit 26.7 % (39.0-52.0); Mean Corp Hgb Conc. 33.7 g/dL (33.0-37.0); Mean Corpuscular Hgb 30.9 pg (27.0-31.0); Mean Corpuscular Volume 91.8 fL (80.0-94.0); Mean Platelet Volume 10.2 fL (7.4-10.4); Platelet Count 599 10^3/uL (130-400); Red Blood Cell Count 2.91 10^6/uL (4.70-6.10); White Blood Cell Count 13.1 10^3/uL (4.8-10.8)
[2023-08-28] MEDS: TYLENOL 650 MG PO ×4 (04:57→23:00)
[2023-08-28 05:13] LABS: Blood Urea Nitrogen 33 mg/dl (9-20); Calcium 9.1 mg/dl (8.4-10.2); Carbon Dioxide 23 mmol/L (22-30); Chloride 104 mmol/L (98-107); Estimated Creatinine Clearance 36 ml/min; Glucose 102 mg/dl (70-99); Potassium 4.4 mmol/L (3.5-5.1); Sodium 133 mmol/L (135-145)
--- NOTE | 2023-08-28 07:45 | W.PN.VS ---
Addendum entered and electronically signed by Zeb Rivera MD 08/28/23 10:40:
Seen and examined with RAHEEL Diaz. Agree with findings and plan as noted below.
Addendum entered and electronically signed by BEBA Leiva 08/28/23 08:27:
CDI:
Physician Documentation Request
Admit Date: 08/05/23 05:57
Please review the following and�provide your response in the progress notes.
Clinical Indicators:�
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
Nutrition note 08/24, ' 156 lb 8.451 oz BMI 22.5 normal range 08/24, 166 lbs 14.239 oz 08/17, 169 lbs 15.622 oz 08/14, 178 lbs 08/05. Suspect weight changes during hospitalization related to both fluid and poor po intakes. Note pt was provided with Lasix
08/07-08/10. Pt with significant 6% weight loss over the past week (08/17 to 08/24).Weight hx: 167 lb 14.4 oz 05/08. Based on review of records dry weight appears to fluctuate around 170lb. Per ASPEN/AND guidelines, pt meets for severe malnutrition in the
context of acute illness as evidenced by <50% intakes x >3 days (since TPN d/c), and >2% weight loss x 1 week...'
Based on the information, which of the following most accurately represents the patient's nutritional status?
Severe Protein Calorie Malnutrition
Original Note:
Today's Communication / Plan
-
Seen and assessed with Dr. Rivera
Assessment/Plan
-
Plan/ POD# 24 PMEG/bilat CFAE. Post op course c/b ischemic colitis requiring colectomy/ostomy.
Cont ASA/eliquis
Continue to keep bilateral surgical incisions at groin covered with dressing
Continue p.o. supplementation and high-protein diet
Decreased Seroquel per psychiatry taper recommendations -will communicate with psych about hallucinations
PT/OT
OOB to chair as tolerated, with progression to ambulation
Case management for dispo planning
Continue to encourage incentive spirometer
Smoking cessation education
Subjective Data
-
Date of Service: August 28, 2023
Patient seen at bedside this a.m. with Dr. Rivera. No events overnight. RN states patient was calm and clear most of the night. This a.m. patient states he is having hallucinations.
Objective Data
-
Vital Signs
Temp Pulse Resp BP Pulse Ox
97.8 F 70 13 112/60 96
08/28/23 04:00 08/28/23 06:00 08/28/23 06:00 08/28/23 06:00 08/28/23 06:00
Intake and Output
08/27/23 08/28/23 08/29/23
06:59 06:59 06:59
Intake Total 270 / 270
Output Total 500 / 500 700 / 700
Balance -500 / -500 -430 / -430
Intake:
Oral fluids 270 / 270
Output:
Urine, Voided 500 / 500 700 / 700
Lab Results
08/28/23 04:38
08/28/23 04:38
Calcium 9.1 mg/dl (8.4-10.2) 08/28/23 04:38
Phosphorus 4.1 mg/dl (2.5-4.5) 08/25/23 04:12
Magnesium 2.5 mg/dl (1.6-2.3) H 08/25/23 04:12
Total Bilirubin 0.6 mg/dl (0.2-1.3) 08/25/23 04:12
Direct Bilirubin 0.5 mg/dl (0.0-0.4) H 08/06/23 03:27
AST 63 U/L (17-59) H 08/25/23 04:12
ALT 60 U/L (0-50) H 08/25/23 04:12
Alkaline Phosphatase 190 U/L (38-126) H 08/25/23 04:12
Total Protein 6.9 g/dl (6.3-8.2) 08/25/23 04:12
Albumin 2.9 g/dl (3.5-5.0) L 08/25/23 04:12
Physical Exam
-
Oriented to self and place, continue to reorient to situation
No dyspnea on room air
Abd flat, soft, tender to previous staple sites
stoma productive, with stool and air
Incision dressings clean/dry x 3
Ext warm
[2023-08-28] MEDS: SPIRIVA RESPIMAT 2.5 MCG 2 PUFF INH (07:47)
[2023-08-28] MEDS: ROXICODONE 10 MG PO ×2 (08:35→23:00)
[2023-08-28] MEDS: CARDIZEM 60 MG PO ×3 (08:42→21:19)
[2023-08-28] MEDS: LOPRESSOR 50 MG PO ×2 (08:42→18:06)
[2023-08-28] MEDS: ELIQUIS 5 MG PO ×2 (08:42→21:19)
[2023-08-28] MEDS: FOLVITE 1 MG PO (08:43)
[2023-08-28] MEDS: VITAMIN B-12 100 MCG PO (08:43)
[2023-08-28] MEDS: LOW STRENGTH ASPIRIN 81 MG PO (08:43)
--- NOTE | 2023-08-28 10:15 | PTCARENOTE ---
Pt rec'd this am from fast food shift supervisor RN at 07:15. He complains of feeling 'like I'm losing my mind' and confused to time. Otherwise, he is easily reoriented and cooperative. Pleasant with staff, meds and assessment as documented. Pt given Ensure Enlive
protein shake with morning meds and is sipping it PRN. Resting quietly at this time. Will cont to monitor.
--- NOTE | 2023-08-28 11:22 | PTCARENOTE ---
Pt min assist x1-2 oob to chair at this time. Pt consumed all of his Ensure Enlive and is now eating eggs. Desmond olson'd at this time. Pt remains pleasant and cooperative. Drowsy but arousable after meds.
--- NOTE | 2023-08-28 12:32 | PTCARENOTE ---
Pt ambulated to and from doorway of room with granddaughter and RN, did complain of dizziness, HR increased to 130s, quickly resolved to 90s after activity. Pt's also in room. Condom cath fell off at this time -pt provided with urinal.
--- NOTE | 2023-08-28 14:23 | CM ---
Addendum entered by Julita Dawkins RN 08/28/23 16:47:
Message to 3 ostomy nurses: Mr Bennett may be ready for dc to SNF tomorrow- SNF is asking if ostomy teaching was begun with the ?
Addendum entered by Julita Dawkins RN 08/28/23 16:13:
Message from [facility]; they are able to accept the patient tomorrow pending he has no issues overnight.
Spoke with Tabitha; she agrees with [facility] SNF for rehab. She says that her son is not calling back because he is home sick. She will update him on the SNF.
Message with Lisseth Auguste; she will discuss d/c with Dr Balbuena in the am and let CM know if patient ready for d/c.
Patient will need insurance auth for SNF with [facility]. Mary will be off tomorrow- CM can call [facility] to request aurh.
Plan follow patient's mentation and readiness for d/c.
Plan [facility] SNF once medically ready and insurance approves.
Addendum entered by Julita Dawkins RN 08/28/23 14:43:
Met with patient and ; agreeable to all SNFs that are interested and stated no preference.
Left phone message for son Fabiano to discuss SNF options.
Original Note:
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 Room air. WOC for stoma care & ostomy
teaching with . PT & OT recommend skilled rehab.
Vascular Sx noted hallucinations this morning, receiving Seroquel, Psych to see patient.
Per nurse; A/O x2, forgetful, Medsitter discontinued 11am today, tolerating PO, ambulated with nurse.
SNF referrals reviewed in [facility]. [facility], [facility], [facility] & [facility] have expressed interest/are reviewing for acceptance.
Patient will need insurance auth for SNF with [employer].
Plan follow patient's mentation and readiness for d/c.
Plan follow up SNF referrals.
--- NOTE | 2023-08-28 17:05 | WOUNDNOTE ---
WOC RN note: t/c Spoke with patient's who will be in tomorrow at 0800 for ostomy teaching.
[2023-08-28 17:17] LABS: Glucose - Point of Care 139 mg/dl (70-99)
--- NOTE | 2023-08-28 18:07 | PTCARENOTE ---
Pt bp running higher (151/110), 20:00 dose of Lopressor given at this time.
--- NOTE | 2023-08-28 22:26 | PTCARENOTE ---
Addendum entered by Jean Bird RN 08/29/23 00:01:
pt finally agreeable to go to bed. pain med given per mar per pt request. bed alarm set. call johnston within reach. RN sitting outside closest nursing station.
Original Note:
Patient up in chair, refusing to get into bed. Pt stated 'I'm tired'. When staff started to assist pt to stand to pivot to bed, pt stated 'No I'm not tired I never said that' Re-oriented to time of day and place. Pt continues to refuse.
[2023-08-29] VITALS (10 sets, daily range): BP systolic 118–157; BP diastolic 63–96; PULSE 74; BMI 22.1
[2023-08-29] MEDS: TYLENOL 650 MG PO ×2 (05:46→12:25)
--- NOTE | 2023-08-29 06:36 | PTCARENOTE ---
Patient was able to sleep in bed. He did not attempt to get up or leave. Patient's mood is labile but following commands and cooperative. Tele without ectopy. Bed alarm set. Call johnston left within reach.
[2023-08-29] MEDS: SPIRIVA RESPIMAT 2.5 MCG 2 PUFF INH (07:25)
[2023-08-29] MEDS: ROXICODONE 10 MG PO ×2 (08:03→16:52)
[2023-08-29] MEDS: VITAMIN B-12 100 MCG PO (08:03)
[2023-08-29] MEDS: LOW STRENGTH ASPIRIN 81 MG PO (08:03)
[2023-08-29] MEDS: CARDIZEM 60 MG PO ×3 (08:03→23:05)
[2023-08-29] MEDS: ELIQUIS 5 MG PO ×2 (08:03→20:31)
[2023-08-29] MEDS: FOLVITE 1 MG PO (08:03)
[2023-08-29] MEDS: LOPRESSOR 50 MG PO ×2 (08:05→20:24)
--- NOTE | 2023-08-29 08:40 | WOUNDNOTE ---
[facility] RN note: Instructed patient's and patient pouch emptying and changing using Yasmany wafer # [id number], Sena seal and [place] pouch # [id number]. Stoma pale pink, oval and flush. Peristomal skin intact. demonstrated how to open and close
pouch and how to snap on pouch. Ostomy supplies at bedside. gave this board writer permission to order patient a [place] ostomy secure starter kit. Patient sacral and heel skin intact. Scrotum and penis shaft with scattered small scabbed areas
suspect d/t patient pulled off his condom cath prior to today as per RN Disa. Heels off bed with pillow. Patient can turn in bed. Air chair cushion in room. Patient is on a [facility] air bed.
--- NOTE | 2023-08-29 12:07 | PTCARENOTE ---
Orders rec'd for calorie count for friday and friday. Will discuss possible dc with attending on rounds.
--- NOTE | 2023-08-29 12:20 | W.PN.VS ---
Addendum entered and electronically signed by Linwood Balbuena III, MD 08/29/23 13:56:
This patient was seen and examined with BEBA Garcia and BEBA Leiva. I agree with the history and physical exam as well as the assessment and plan. I have the following additions:
Mental status today is the best he is looked
Sitting up in the chair
Hemodynamically stable
incisions are clean and dry
His nutrition status is very poor and he needs to have increased p.o. intake before he is ready to leave
He has a poor appetite however Marinol is not available currently
Will work on maximizing oral intake to improve nutritional status
Calorie counts over the weekend
Will reevaluate next week. If he does not demonstrate that he can meet his caloric needs with independent oral intake then I explained that he may need either a Dobbhoff tube or PEG.
Signed:
Linwood Balbuena III, MD
[facility] V[facility] Surgery
[phone] ([phone])
Original Note:
Today's Communication / Plan
-
Patient seen and evaluated at bedside with Dr. Linwood Balbuena III, below plan reviewed with attending.
Assessment/Plan
-
Plan/ POD# 25 PMEG/bilat CFAE. Post op course c/b ischemic colitis requiring colectomy/ostomy.
Cont ASA/eliquis
Continue to keep bilateral surgical incisions at groin covered with dressing
Continue p.o. supplementation and high-protein diet
Will have strict calorie count over the weekend to determine if PEG placement is required, will make final decision with family on Friday
Discontinued Seroquel per psychiatry taper recommendations
PT/OT
Case management for dispo planning
Continue to encourage incentive spirometer
Smoking cessation education
Subjective Data
-
Date of Service: August 29, 2023
Patient seen and evaluated at bedside, confusion vastly improved and no evidence of hallucinations. Patient still requires reorientation to details of hospital stay. Denies nausea, vomiting, fever, and chills. Does endorse he has no appetite or
desire to eat, but willing to continue to try in order to improve wound healing.
Objective Data
-
Vital Signs
Temp Pulse Resp BP Pulse Ox
98.2 F 77 12 134/78 97
08/29/23 11:35 08/29/23 08:03 08/29/23 07:28 08/29/23 08:03 08/29/23 07:28
Intake and Output
08/28/23 08/29/23 08/30/23
06:59 06:59 06:59
Intake Total 270 / 270 577 / 577
Output Total 700 / 700 400 / 400
Balance -430 / -430 177 / 177
Intake:
Oral fluids 270 / 270 577 / 577
Output:
Urine, Voided 700 / 700 400 / 400
Other:
How many times incontinent 1
SMALL amount urine
How many times incontinent 1
SATURATED amount urine
Lab Results
08/28/23 04:38
08/28/23 04:38
Calcium 9.1 mg/dl (8.4-10.2) 08/28/23 04:38
Phosphorus 4.1 mg/dl (2.5-4.5) 08/25/23 04:12
Magnesium 2.5 mg/dl (1.6-2.3) H 08/25/23 04:12
Total Bilirubin 0.6 mg/dl (0.2-1.3) 08/25/23 04:12
Direct Bilirubin 0.5 mg/dl (0.0-0.4) H 08/06/23 03:27
AST 63 U/L (17-59) H 08/25/23 04:12
ALT 60 U/L (0-50) H 08/25/23 04:12
Alkaline Phosphatase 190 U/L (38-126) H 08/25/23 04:12
Total Protein 6.9 g/dl (6.3-8.2) 08/25/23 04:12
Albumin 2.9 g/dl (3.5-5.0) L 08/25/23 04:12
Physical Exam
-
Oriented to self and place, continue to reorient to situation
No dyspnea on room air
Abd flat, soft, tender to previous staple sites
stoma productive, with stool and air
Incision dressings clean/dry x 3
Ext warm
--- NOTE | 2023-08-29 14:27 | CM ---
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 Room air. WOC for stoma care & ostomy
teaching with . PT & OT recommend skilled rehab. Seen by Membership Advisor for malnutrition.
Message from Dr Balbuena; the patient is not readyfor d/c today. Need to work on nutrition for the weekend. Maybe next week.
Spoke with Woodrow, s [facility]; informed her patient is not medically ready for d/c.
Spoke with Tabitha; she is aware that patient is not medically ready for d/c. She requested [facility] SNF contact info as she may want to tour the facility this weekend- provided address & phone.
Plan [facility] SNF once medically ready and insurance approves.
[2023-08-29] MEDS: TYLENOL PO (17:03)
--- NOTE | 2023-08-29 18:39 | PTCARENOTE ---
Pt with approx 30 sec run of VT, asymptomatic, self limiting. Vascular notified by TT-instructed this RN to call Cardiology and update.
[2023-08-29 21:31] LABS: Blood Urea Nitrogen 37 mg/dl (9-20); Calcium 9.7 mg/dl (8.4-10.2); Carbon Dioxide 23 mmol/L (22-30); Chloride 102 mmol/L (98-107); Estimated Creatinine Clearance 31 ml/min; Glucose 138 mg/dl (70-99); Magnesium 2.4 mg/dl (1.6-2.3); Potassium 5.3 mmol/L (3.5-5.1); Sodium 132 mmol/L (135-145); eGFR 35.44
[2023-08-30] VITALS (14 sets, daily range): BP systolic 106–134; BP diastolic 58–95; BMI 22.1
[2023-08-30] MEDS: TYLENOL 650 MG PO ×2 (01:09→17:32)
[2023-08-30] MEDS: ROXICODONE 10 MG PO ×2 (03:31→23:45)
--- NOTE | 2023-08-30 04:28 | PTCARENOTE ---
On previous shift Pt had 30 beat run of what presented as VT. Day RN made cardiac aware, this RN spoke to Dr. Agudelo to review meds, no new orders at that time. Over night no vitals remained stable. Pt has been pleasantly all night with some confusion
to where he is and if family is here. pt easily redirected. pain medication given, see mar. Assessment care and vitals as charted.
[2023-08-30 04:51] LABS: Hematocrit 27.1 % (39.0-52.0); Hemoglobin 8.9 g/dL (13.0-18.0); Mean Corp Hgb Conc. 32.8 g/dL (33.0-37.0); Mean Corpuscular Hgb 30.9 pg (27.0-31.0); Mean Corpuscular Volume 94.1 fL (80.0-94.0); Mean Platelet Volume 10.2 fL (7.4-10.4); Platelet Count 599 10^3/uL (130-400); Red Blood Cell Count 2.88 10^6/uL (4.70-6.10); Red Cell Dist. Width 14.4 % (11.5-14.5); White Blood Cell Count 19.9 10^3/uL (4.8-10.8)
[2023-08-30 05:17] LABS: Blood Urea Nitrogen 36 mg/dl (9-20); Calcium 9.6 mg/dl (8.4-10.2); Carbon Dioxide 26 mmol/L (22-30); Chloride 101 mmol/L (98-107); Estimated Creatinine Clearance 33 ml/min; Glucose 107 mg/dl (70-99); Potassium 5.1 mmol/L (3.5-5.1); Sodium 133 mmol/L (135-145); eGFR 37.82
[2023-08-30] MEDS: TYLENOL PO ×2 (06:24→13:08)
--- NOTE | 2023-08-30 08:25 | W.PN.VS ---
Today's Communication / Plan
-
Patient seen and examined at bedside with Dr. Agustina Flores, plan reviewed with attending
Assessment/Plan
-
Plan/ POD# 26 PMEG/bilat CFAE. Post op course c/b ischemic colitis requiring colectomy/ostomy.
30 beat run of V. tach on 08/29/2023 late in evening, electrolytes checked at that time particularly potassium and magnesium which were within normal limits and remained so today. Will continue to monitor. 12 lead EKG obtained and cardiology asked
to reevaluate patient.
Cont ASA/eliquis
Continue to keep bilateral surgical incisions at groin covered with dressing
Continue p.o. supplementation and high-protein diet
Continue strict calorie count over the weekend to determine if PEG placement is required, will make final decision with family on Friday
PT/OT
Case management following
Continue to encourage incentive spirometer
Smoking cessation education
Subjective Data
-
Date of Service: August 30, 2023
Patient seen and examined at bedside, offers no complaints. Reports adequate postoperative pain management. Denies nausea and vomiting. Pleasant, continues to require reorientation to place and recent medical events. Denies hallucinations.
Objective Data
-
Vital Signs
Temp Pulse Resp BP Pulse Ox
97.4 F 87 21 111/71 96
08/30/23 07:16 08/30/23 06:00 08/30/23 06:00 08/30/23 06:00 08/30/23 03:40
Intake and Output
08/29/23 08/30/23 08/31/23
06:59 06:59 06:59
Intake Total 577 / 577 780 / 780
Output Total 400 / 400 550 / 550
Balance 177 / 177 230 / 230
Intake:
Oral fluids 577 / 577 780 / 780
Output:
Urine, Voided 400 / 400 550 / 550
Other:
How many times incontinent 1
SMALL amount urine
How many times incontinent 1
MODERATE amount urine
How many times incontinent 1
SATURATED amount urine
Lab Results
08/30/23 04:38
08/30/23 04:38
Calcium 9.6 mg/dl (8.4-10.2) 08/30/23 04:38
Phosphorus 4.1 mg/dl (2.5-4.5) 08/25/23 04:12
Magnesium 2.4 mg/dl (1.6-2.3) H 08/29/23 20:59
Total Bilirubin 0.6 mg/dl (0.2-1.3) 08/25/23 04:12
Direct Bilirubin 0.5 mg/dl (0.0-0.4) H 08/06/23 03:27
AST 63 U/L (17-59) H 08/25/23 04:12
ALT 60 U/L (0-50) H 08/25/23 04:12
Alkaline Phosphatase 190 U/L (38-126) H 08/25/23 04:12
Total Protein 6.9 g/dl (6.3-8.2) 08/25/23 04:12
Albumin 2.9 g/dl (3.5-5.0) L 08/25/23 04:12
Physical Exam
-
Oriented to self, awake and alert, continue to reorient to situation
No dyspnea on room air
Abd flat, soft, nondistended
stoma productive, with stool and air
Incision dressings clean/dry x 3
Ext warm
Skin assessed no evidence of pressure wound at sacrum
[2023-08-30] MEDS: SPIRIVA RESPIMAT 2.5 MCG 2 PUFF INH (08:29)
--- NOTE | 2023-08-30 09:42 | W.PN.CD ---
Today's Communication / Plan
-
reload with IV amiodarone
Impression / Plan
-
NSVT: earlier in admission, and then last night 08/28 for about 30 sec
-echo 08/11/23: EF 55%
-no symptoms
- K and Mg at goal
- continue metoprolol tartarte 50mg bid
- last amiodarone 08/14
-reload with IV amiodarone
Complex vascular surgery on 08/06/2023 for AAA/iliac disease/PAD
Ischemic colitis, postop vascular surgery S/P colostomy, flexible sigmoidoscopy and colectomy with a colostomy on 08/06/[address] Padilla
Permanent atrial fibrillation
-on PO dilt and metoprolol with good rate control
-Restarted apixaban 08/15/23
Anemia, total 6 U this admit
Left kidney infarction by CTA 08/14/2023
New NATALIE
HTN
Abnormal troponin, peak 0.043, likely nonischemic myocardial injury in the setting of acute illness
CAD, PCI with stenting 1993 & 1994, CABG 2016, stable without CP
Prior CVAs
HLD, continue rosuvastatin 40mg when bowel function returns
Current smoker, cessation recommended
Delirium is much improved as of 08/22/2023
Subjective:
No CP/SOB/palps.
Physical Exam
Vital Signs/Labs
Vital Signs
Temp Pulse Resp BP Pulse Ox
97.4 F 102 22 111/71 98
08/30/23 07:16 08/30/23 08:30 08/30/23 08:30 08/30/23 06:00 08/30/23 08:30
08/29/23 08/30/23 08/31/23
06:59 06:59 06:59
Actual Weight 69.8 kg 69.9 kg
08/30/23 04:38
03/23/24 04:38
PT 15.4 Sec (11.4-14.6) H 08/06/23 03:27
INR 1.21 08/06/23 03:27
APTT Cancelled 08/15/23 12:00
Magnesium 2.4 mg/dl (1.6-2.3) H 08/29/23 20:59
Triglycerides 195 mg/dl (10-149) H 08/25/23 04:12
08/11/23
04:15
Zfm-X-Jjojghiqzga Pept 4920
Physical Exam
Constitutional: No acute distress and Comfortable
EENT: Moist mucous membranes
Cardiovascular: Pedal edema is absent, JVD pressure is normal, Systolic murmur absent and Rhythm/rate is irregular
Respiratory: Respiratory effort normal and Lungs clear to auscul.
GI: Soft
Neuro/Psych: AO x 3
Data Reviewed
-
Date of Service: August 30, 2023
EKG: Other (Tele: 30 sec NSVT overnight; o/w A fib)
Labs: Labs Reviewed by me
[2023-08-30] MEDS: ZOFRAN 4 MG IV (10:04)
--- NOTE | 2023-08-30 10:28 | PTCARENOTE ---
Pt with nausea and vomiting. PRN IV Zofran given. Morning PO medications held at this time d/t nausea. freight caller Vascular MD notified via TT.
[2023-08-30] MEDS: CORDARONE 518 MG IV (10:38)
[2023-08-30] MEDS: LOPRESSOR 50 MG PO ×2 (10:41→21:07)
[2023-08-30] MEDS: CARDIZEM 60 MG PO ×3 (10:41→22:59)
[2023-08-30] MEDS: ELIQUIS 5 MG PO ×2 (10:41→21:07)
[2023-08-30] MEDS: FOLVITE PO (10:44)
[2023-08-30] MEDS: LOW STRENGTH ASPIRIN PO (10:44)
[2023-08-30] MEDS: VITAMIN B-12 PO (10:44)
--- NOTE | 2023-08-30 13:13 | PTCARENOTE ---
Pt presents as assessed. Agitated with care at times. Pt with labile moods. EKG obtained per orders. Amio gtt initiated per orders. Continues with intermittent nausea but no further vomiting at this time. Pt refusing meals and to work with PT
despite encouragement. Will continue to encourage pt.
[2023-08-31] VITALS (13 sets, daily range): BP systolic 99–126; BP diastolic 54–72; PULSE 73; O2SAT 96; BMI 22.2
[2023-08-31] MEDS: DUONEB 3 ML INH (00:30)
[2023-08-31] MEDS: TYLENOL PO (01:50)
--- NOTE | 2023-08-31 02:00 | PTCARENOTE ---
Addendum entered by Marilyn Comer RN 08/31/23 06:45:
Pt had 8 run of VT. Night COATINGS INSPECTOR made aware, Amiodarone gtt restarted. Pt is having what he says is ' anxiety and does not know why'.
Original Note:
Assumed care from day RN, pt appearing to be withdrawn refusing to eat. Pt calling to talk to RN. Pt asking if he was in a psych alonso. During conversation Pt informing RN that he is feeling sad, depressed and anxious at times and he knows he gets
confused a lot. RN asked if Pt had any though of hurting self or other, Pt firmly said ' oh God no'. Emotional support given to Pt and assessment completed. Pt SPO2 spot checked in low 80's on RA, Moist productive occasional cough, B/L throughout
course with crackles. Pt asked if he feels short of breath, reply 'yeah its hard to take a breath' Pt RR 20. Pt Placed on 6L NC and repositioned. While RN at bedside night COATINGS INSPECTOR TT. RT to give breathing treatment. Pt had complaints of pain, and not
sleeping good for days, medication given lights turned out fan noise on. Pt on Amiodarone gtt, Hr 55-60, Night COATINGS INSPECTOR made aware, order on hold.
[2023-08-31 04:20] LABS: Hematocrit 27.2 % (39.0-52.0); Hemoglobin 9.2 g/dL (13.0-18.0); Mean Corp Hgb Conc. 33.8 g/dL (33.0-37.0); Mean Corpuscular Hgb 31.5 pg (27.0-31.0); Mean Corpuscular Volume 93.2 fL (80.0-94.0); Mean Platelet Volume 10.4 fL (7.4-10.4); Platelet Count 539 10^3/uL (130-400); Red Blood Cell Count 2.92 10^6/uL (4.70-6.10); Red Cell Dist. Width 14.7 % (11.5-14.5); White Blood Cell Count 23.3 10^3/uL (4.8-10.8)
[2023-08-31 05:03] LABS: Blood Urea Nitrogen 36 mg/dl (9-20); Calcium 9.3 mg/dl (8.4-10.2); Carbon Dioxide 24 mmol/L (22-30); Chloride 101 mmol/L (98-107); Estimated Creatinine Clearance 31 ml/min; Glucose 105 mg/dl (70-99); Magnesium 2.3 mg/dl (1.6-2.3); Phosphorus 4.2 mg/dl (2.5-4.5); Potassium 4.8 mmol/L (3.5-5.1); Sodium 132 mmol/L (135-145); eGFR 35.44
[2023-08-31 05:07] LABS: Lactic Acid 1.3 mmol/L (0.7-2.0)
[2023-08-31 05:15] LABS: NT-proBNP 4980 pg/ml
--- NOTE | 2023-08-31 05:56 | W.PN.UPDATE ---
Update Note
Progress Note Update
Patient noted earlier with c/o 'hearing things' . Recent ICU psychosis noted. Was anxious overnight. Asked psych to see him again .Had increased oxygen requirement so did give Nebulizer x1 with good effect...Pulm toileting done and thick mucus
expelled. 2 view CXR ordered this am. Held amiodorone due to HR in 50's. Did have run of VT 9 beats and broke on its own. Remained asymptomatic. Will restart amiodorone. Asked nephrology to review since creatinine continues to climb. BNP 4980.
Nursing reports he feels better this morning after sleeping. VSS.
[2023-08-31] MEDS: TYLENOL 650 MG PO ×4 (06:14→23:17)
[2023-08-31] MEDS: SPIRIVA RESPIMAT 2.5 MCG 2 PUFF INH (07:46)
--- NOTE | 2023-08-31 08:32 | W.PN.VS ---
Today's Communication / Plan
-
Plan/ POD# 27 PMEG/bilat CFAE. Post op course c/b ischemic colitis requiring colectomy/ostomy.
Urine cx, blood cx, CXR for increased WBC
30 beat run of V. tach on 08/29/2023, seen by cards and reloaded with amio
Cont ASA/eliquis
Continue p.o. supplementation and high-protein diet
Continue strict calorie count over the weekend to determine if PEG placement is required, will make final decision with family on Friday
PT/OT
Case management following
Continue to encourage incentive spirometer
Smoking cessation education
Assessment/Plan
-
Plan/ POD# 27 PMEG/bilat CFAE. Post op course c/b ischemic colitis requiring colectomy/ostomy.
Urine cx, blood cx, CXR for increased WBC
30 beat run of V. tach on 08/29/2023, seen by cards and reloaded with amio
Cont ASA/eliquis
Continue p.o. supplementation and high-protein diet
Continue strict calorie count over the weekend to determine if PEG placement is required, will make final decision with family on Friday
PT/OT
Case management following
Continue to encourage incentive spirometer
Smoking cessation education
Subjective Data
-
Date of Service: August 31, 2023
Plan/ POD# 27 PMEG/bilat CFAE. Post op course c/b ischemic colitis requiring colectomy/ostomy.
WBC rising to 23, no fever
complaining of difficulty breathing
95% RA but required O2 overnight for sat drop
Per nursing, coughing with thick secretions
Initially reported 'pain all over' but specifically denies abdominal, chest, back pain
No urgency or frequency
No lower extremity pain
Reloaded with IV amio for run of VT on 08/28
Objective Data
-
Vital Signs
Temp Pulse Resp BP Pulse Ox
97.5 F 53 16 116/54 98
08/31/23 07:47 08/31/23 07:48 08/31/23 07:48 08/31/23 06:00 08/31/23 07:48
Intake and Output
08/30/23 08/31/23 09/01/23
06:59 06:59 06:59
Intake Total 780 / 780 305 / 305
Output Total 550 / 550 500 / 500
Balance 230 / 230 -195 / -195
Intake:
Oral fluids 780 / 780 300 / 300
IV piggybacks 5 / 5
Output:
Urine, Voided 550 / 550 500 / 500
Other:
How many times incontinent 1
MODERATE amount urine
Number of unmeasured liquid
stools
Colostomy 1
Lab Results
08/31/23 04:00
08/31/23 04:00
Calcium 9.3 mg/dl (8.4-10.2) 08/31/23 04:00
Phosphorus 4.2 mg/dl (2.5-4.5) 08/31/23 04:00
Magnesium 2.3 mg/dl (1.6-2.3) 08/31/23 04:00
Total Bilirubin 0.6 mg/dl (0.2-1.3) 08/25/23 04:12
Direct Bilirubin 0.5 mg/dl (0.0-0.4) H 08/06/23 03:27
AST 63 U/L (17-59) H 08/25/23 04:12
ALT 60 U/L (0-50) H 08/25/23 04:12
Alkaline Phosphatase 190 U/L (38-126) H 08/25/23 04:12
Total Protein 6.9 g/dl (6.3-8.2) 08/25/23 04:12
Albumin 2.9 g/dl (3.5-5.0) L 08/25/23 04:12
Physical Exam
-
No skin breakdown over sacrum
No foot wounds
incisions clean, dry, intact
abdomen soft, nontender
no increased work of breathing
[2023-08-31] MEDS: LOW STRENGTH ASPIRIN 81 MG PO (08:58)
[2023-08-31] MEDS: VITAMIN B-12 100 MCG PO (08:59)
[2023-08-31] MEDS: CARDIZEM 60 MG PO ×3 (08:59→23:17)
[2023-08-31] MEDS: LOPRESSOR 50 MG PO ×2 (08:59→20:07)
[2023-08-31] MEDS: ELIQUIS 5 MG PO ×2 (09:00→20:06)
[2023-08-31] MEDS: FOLVITE 1 MG PO (09:00)
[2023-08-31] MEDS: ROXICODONE 5 MG PO (09:06)
[2023-08-31] MEDS: PACERONE 400 MG PO ×2 (10:44→20:07)
--- NOTE | 2023-08-31 10:55 | W.PN.CD ---
Today's Communication / Plan
-
start PO amiodarone 400mg bid for 10 days starting today, then 400mg daily
Impression / Plan
-
NSVT: earlier in admission, and then 08/28 for about 30 sec; 08/30 7 beats
-echo 08/11/23: EF 55%
-no symptoms
- K and Mg at goal
- continue metoprolol tartarte 50mg bid
- last amiodarone 08/14
-IV amiodarone for 24hrs 08/29-08/30
-start PO amiodarone 400mg bid for 10 days starting 08/30, then 400mg daily
Complex vascular surgery on 08/06/2023 for AAA/iliac disease/PAD
Ischemic colitis, postop vascular surgery S/P colostomy, flexible sigmoidoscopy and colectomy with a colostomy on 08/06/[address] Padilla
Permanent atrial fibrillation
-on PO dilt and metoprolol with good rate control
-Restarted apixaban 08/15/23
Anemia, total 6 U this admit
Left kidney infarction by CTA 08/14/2023
New NATALIE
HTN
Abnormal troponin, peak 0.043, likely nonischemic myocardial injury in the setting of acute illness
CAD, PCI with stenting 1993 & 1994, CABG 2016, stable without CP
Prior CVAs
HLD, continue rosuvastatin 40mg when bowel function returns
Current smoker, cessation recommended
Delirium is much improved as of 08/22/2023
Subjective:
Denies CP/SOB/palps.
Physical Exam
Vital Signs/Labs
Vital Signs
Temp Pulse Resp BP Pulse Ox
97.5 F 71 16 115/63 96
08/31/23 07:47 08/31/23 08:59 08/31/23 07:48 08/31/23 08:59 08/31/23 08:00
08/30/23 08/31/23 09/01/23
06:59 06:59 06:59
Actual Weight 69.9 kg 70.3 kg
08/31/23 04:00
08/31/23 04:00
PT 15.4 Sec (11.4-14.6) H 08/06/23 03:27
INR 1.21 08/06/23 03:27
APTT Cancelled 08/15/23 12:00
Magnesium 2.3 mg/dl (1.6-2.3) 08/31/23 04:00
Triglycerides 195 mg/dl (10-149) H 08/25/23 04:12
08/11/23 08/31/23
04:15 04:00
Dit-T-Zvfchkkxqow Pept 4920 4980
Physical Exam
Constitutional: No acute distress and Comfortable
EENT: Moist mucous membranes
Cardiovascular: Rhythm & rate is regular, Pedal edema is absent, JVD pressure is normal and Systolic murmur absent
Respiratory: Respiratory effort normal and Lungs clear to auscul.
GI: Soft and Distention absent
Neuro/Psych: AO x 3
Data Reviewed
-
Date of Service: August 31, 2023
EKG: Other (Tele: A fib, 7 beats NSVT)
Labs: Labs Reviewed by me
[2023-08-31 11:52] LABS: Urine Albumin Trace (Neg - Trace); Urine Bilirubin Negative (Negative); Urine Character Clear (Clear); Urine Color Yellow; Urine Glucose Negative (Negative); Urine Ketone Negative (Negative); Urine Leukocyte Negative (Negative); Urine Nitrite Negative (Negative); Urine Occult Blood 3+ (Negative); Urine Specific Gravity 1.025 (<1.030); Urine Urobilinogen Negative (Neg - 1+)
[2023-08-31 11:58] LABS: Urine Hyaline Cast 0-2 /LPF (0-2); Urine Squamous Cell 0-2 /LPF (Few)
[2023-08-31 11:59] LABS: Urine White Cell 0-2 /HPF (0-5)
[2023-08-31] MEDS: AUGMENTIN 875 MG/125 MG 1 TABLET PO ×2 (13:09→20:07)
[2023-08-31] MEDS: ROXICODONE 10 MG PO (20:17)
[2023-09-01] VITALS (12 sets, daily range): BP systolic 114–145; BP diastolic 58–79; BMI 22.3
[2023-09-01 04:27] LABS: Hematocrit 24.8 % (39.0-52.0); Hemoglobin 8.1 g/dL (13.0-18.0); Mean Corp Hgb Conc. 32.7 g/dL (33.0-37.0); Mean Corpuscular Hgb 31.3 pg (27.0-31.0); Mean Corpuscular Volume 95.8 fL (80.0-94.0); Mean Platelet Volume 10.5 fL (7.4-10.4); Platelet Count 473 10^3/uL (130-400); Red Blood Cell Count 2.59 10^6/uL (4.70-6.10); Red Cell Dist. Width 14.7 % (11.5-14.5); White Blood Cell Count 17.7 10^3/uL (4.8-10.8)
[2023-09-01 04:44] LABS: Blood Urea Nitrogen 35 mg/dl (9-20); Calcium 9.3 mg/dl (8.4-10.2); Carbon Dioxide 25 mmol/L (22-30); Chloride 99 mmol/L (98-107); Estimated Creatinine Clearance 37 ml/min; Glucose 114 mg/dl (70-99); Magnesium 2.2 mg/dl (1.6-2.3); Phosphorus 4.2 mg/dl (2.5-4.5); Potassium 4.5 mmol/L (3.5-5.1); Sodium 132 mmol/L (135-145); eGFR 43.56
--- NOTE | 2023-09-01 05:29 | PTCARENOTE ---
Pt slept on/off, cooperative with care. On 2-3L overnight, Sp02 95-99%. On room air he is 86-88%. Swallowing pills safely one at a time with liquid. Tele showing Afib 50-70s, no ectopy. Left colostomy intact. Voiding via condom cath, clear yellow.
All incisions well approximated and EXPORT CLERK, no drainage present. Prn oxycodone provided per pt request. Able to turn self while in bed. Bed alarm set for safety. Call johnston remained within reach. RN sitting outside room at closest station.
[2023-09-01] MEDS: TYLENOL 650 MG PO ×3 (05:55→16:19)
[2023-09-01] MEDS: SPIRIVA RESPIMAT 2.5 MCG 2 PUFF INH (08:01)
[2023-09-01] MEDS: VITAMIN B-12 100 MCG PO (08:26)
[2023-09-01] MEDS: CARDIZEM 60 MG PO ×3 (08:27→21:36)
[2023-09-01] MEDS: AUGMENTIN 875 MG/125 MG 1 TABLET PO ×2 (08:27→20:08)
[2023-09-01] MEDS: LOW STRENGTH ASPIRIN 81 MG PO (08:28)
[2023-09-01] MEDS: LOPRESSOR PO (08:28)
[2023-09-01] MEDS: PACERONE 400 MG PO ×2 (08:29→20:08)
[2023-09-01] MEDS: ELIQUIS 5 MG PO ×2 (08:29→20:08)
[2023-09-01] MEDS: FOLVITE 1 MG PO (08:29)
[2023-09-01] MEDS: LOPRESSOR 50 MG PO ×2 (09:33→20:08)
--- NOTE | 2023-09-01 09:33 | W.PN.CD ---
Today's Communication / Plan
-
PO amiodarone 400mg bid for 10 days starting 08/30, then plan for 400mg daily
Impression / Plan
-
NSVT: earlier in admission, and then 08/28 for about 30 sec; 08/30 7 beats; none since then
-echo 08/11/23: EF 55%
-no symptoms
- K and Mg at goal
- continue metoprolol tartarte 50mg bid
- prior amiodarone ended 08/14
-now s/p IV amiodarone for 24hrs 08/29-08/30
-started PO amiodarone 400mg bid for 10 days starting 08/30, then plan for 400mg daily
-eventual nuclear stress test: inpatient vs outpatient based on clinical course
Complex vascular surgery on 08/06/2023 for AAA/iliac disease/PAD
Ischemic colitis, postop vascular surgery S/P colostomy, flexible sigmoidoscopy and colectomy with a colostomy on 08/06/[address] Padilla
Permanent atrial fibrillation
-on PO dilt and metoprolol with good rate control
-Restarted apixaban 08/15/23
Anemia, total 6 U this admit
Left kidney infarction by CTA 08/14/2023
New NATALIE
HTN
Abnormal troponin, peak 0.043, likely nonischemic myocardial injury in the setting of acute illness
CAD, PCI with stenting 1993 & 1994, CABG 2016, stable without CP
Prior CVAs
HLD, continue rosuvastatin 40mg when bowel function returns
Current smoker, cessation recommended
Delirium is much improved as of 08/22/2023
Subjective:
He denies CP/SOB/palps.
Physical Exam
Vital Signs/Labs
Vital Signs
Temp Pulse Resp BP Pulse Ox
97.5 F 59 16 118/67 96
09/01/23 07:35 09/01/23 08:27 09/01/23 08:06 09/01/23 08:27 09/01/23 08:06
08/31/23 09/01/23 09/02/23
06:59 06:59 06:59
Actual Weight 70.3 kg 70.534 kg
09/01/23 03:51
09/01/23 03:51
PT 15.4 Sec (11.4-14.6) H 08/06/23 03:27
INR 1.21 08/06/23 03:27
APTT Cancelled 08/15/23 12:00
Magnesium 2.2 mg/dl (1.6-2.3) 09/01/23 03:51
Triglycerides 195 mg/dl (10-149) H 08/25/23 04:12
08/11/23 08/31/23
04:15 04:00
Ghn-H-Qeagmqyltqw Pept 4920 4980
Physical Exam
Constitutional: No acute distress and Comfortable
EENT: Moist mucous membranes
Cardiovascular: Rhythm & rate is regular, Pedal edema is absent, JVD pressure is normal and Systolic murmur absent
Respiratory: Respiratory effort normal, Lungs clear to auscul. and Wheeze Absent
GI: Soft and Distention absent
Neuro/Psych: AO x 3
Data Reviewed
-
Date of Service: September 01, 2023
EKG: Other (Tele: SR 60s, no VT)
Labs: Labs Reviewed by me
--- NOTE | 2023-09-01 12:07 | W.PN.VS ---
Addendum entered and electronically signed by Linwood Balbuena III, MD 09/01/23 19:50:
This patient was seen and examined with BEBA Garcia. I agree with the history and physical exam as well as the assessment and plan. I have the following additions:
Patient not eating
Poor appetite
Appetite stimulant choices are limited
Calorie counts indicate poor intake consistently despite encouragement
Patient would benefit from either Dobbhoff or PEG given consistently poor po intake and poor nutrition parameters, however he is refusing feeding tube
I had a long conversation with his this afternoon. I explained the importance of increased oral intake and maximizing nutrition while in the recovery phase of major surgery. She understands and will continue to encourage her to eat.
Signed:
Linwood Balbuena III, MD
[facility] Vascular Surgery
[phone] ([email or web address])
Original Note:
Today's Communication / Plan
-
Seen and assessed with Dr. Balbuena
Assessment/Plan
-
Plan/ POD# 28 PMEG/bilat CFAE. Post op course c/b ischemic colitis requiring colectomy/ostomy.
GI consult for PEG tube
Cont antibiotics
Appreciate cardiology
Cont ASA/Eliquis
PT/OT
Case management following
Continue to encourage incentive spirometer
Smoking cessation education
We will return to remove bilateral groin renny
Subjective Data
-
Date of Service: September 01, 2023
Patient seen at bedside this a.m. with Dr. Balbuena. Patient offers no complaints at this time. RN's report patient is refusing to eat. Patient reports he does not have an appetite to eat.
Objective Data
-
Vital Signs
Temp Pulse Resp BP Pulse Ox
98.1 F 68 13 118/67 96
09/01/23 11:48 09/01/23 10:00 09/01/23 10:00 09/01/23 10:00 09/01/23 08:06
Intake and Output
08/31/23 09/01/23 09/02/23
06:59 06:59 06:59
Intake Total 305 / 305 980 / 980 240 / 240
Output Total 500 / 500 625 / 625
Balance -195 / -195 355 / 355 240 / 240
Intake:
Oral fluids 300 / 300 980 / 980 240 / 240
IV piggybacks 5 / 5
Output:
Urine, Voided 500 / 500 625 / 625
Other:
Number of unmeasured liquid
stools
Colostomy 1
Lab Results
09/01/23 03:51
09/01/23 03:51
Calcium 9.3 mg/dl (8.4-10.2) 09/01/23 03:51
Phosphorus 4.2 mg/dl (2.5-4.5) 09/01/23 03:51
Magnesium 2.2 mg/dl (1.6-2.3) 09/01/23 03:51
Total Bilirubin 0.6 mg/dl (0.2-1.3) 08/25/23 04:12
Direct Bilirubin 0.5 mg/dl (0.0-0.4) H 08/06/23 03:27
AST 63 U/L (17-59) H 08/25/23 04:12
ALT 60 U/L (0-50) H 08/25/23 04:12
Alkaline Phosphatase 190 U/L (38-126) H 08/25/23 04:12
Total Protein 6.9 g/dl (6.3-8.2) 08/25/23 04:12
Albumin 2.9 g/dl (3.5-5.0) L 08/25/23 04:12
Physical Exam
-
Alert, calm, oriented to person and place
No tachycardia at this time
No tachypnea
Abd soft, nt, incisional site well-approximated
Bilateral groin sites clean dry and intact
Stoma pink
--- NOTE | 2023-09-01 16:20 | W.PN.UPDATE ---
Update Note
Progress Note Update
BL groin renny and sutures removed by this provider, BL sites with no evidence breakdown.
--- NOTE | 2023-09-01 16:40 | WOUNDNOTE ---
WOC RN note: lucas/iris Jade, spoke with Richard and ordered patient a Yasmany ostomy secure starter kit.
--- NOTE | 2023-09-01 17:08 | W.PN.UPDATE ---
Update Note
Progress Note Update
Asked to evaluate for possible PEG tube placement. Discussed with patient at bedside with RN present. Patient states this time that he does not want PEG tube placement. He does have food at his bedside. There is 3 bites of hamburger from his
lunch tray eaten. The patient has the ability to eat, has no pain with eating states he just does not have an appetite. He states that he would eat milkshakes. I am going to have nursing make a milkshake since our cafeteria does not have
capability to do so. Also going to encourage family to bring in some as well. Discussed with BEBA Mcgovern with CT surgery. Would recommend trying Remeron low-dose to see if this will stimulate his appetite. She states that Marinol is on
backorder currently. She is going to discuss with surgeon if Remeron is a possibility to try. Also family discussion would need to be had for possible PEG tube placement, although again patient does not want this.
[2023-09-01] MEDS: ROXICODONE 10 MG PO (20:08)
--- NOTE | 2023-09-01 20:19 | PTCARENOTE ---
1914: RN entered the room to address the ringing bed alarm. Pt stated 'stand me up'. I told the pt I was in the middle of something and I would be back to assist him in a moment. Pt yelled 'Bullshit. Stand me the fuck up'. Pt verbally abusive
towards staff. When attempted to re-orient pt to surrounding and place, pt ask 'why am I still in the hospital?' Support given.
Per report pt had refused to get out of bed all day after multiple attempts.
1999: RN administered scheduled meds and pain medication. Offered to get pt OOB, pt refused. Pt demanded ice water. Fresh ice water given to pt. Pt swallowed pills without coughing or other signs of aspiration. About a minute later pt coughed up a
moderate sized ball of sputum and spit it towards the tray table. RN attempted to educate pt about this but pt is visibly agitated and not in the mental state to retain any information at this time. RN left room with bed alarm set and call johnston
within reach.
RN sitting outside closest nurses station when not caring for other patients.
[2023-09-01] MEDS: SEROQUEL 25 MG PO (21:36)
--- NOTE | 2023-09-01 21:41 | PTCARENOTE ---
Pt yelled out 'nurse'. Agitated, argumentative and cursing at staff when staff entered the room. taking off BP cuff, tele monitor, and ripped off condom cath and call johnston from the wall. after re-orienting the pt and explaining the situation, pt
agreeable to take Seroquel and go to bed. refused condom cath, refused any hygiene. warm blankets provided. bed alarm set. call johnston cord placed back into the wall. RN made sure it was within reach and pt demonstrated how to use if he needed
assistance.
--- NOTE | 2023-09-01 22:59 | PTCARENOTE ---
Patient setting off the bed alarm multiple times attempting to get out of bed, stating he is going home. Re-oriented the pt multiple times, pt continues to be agitated and resistant.
Pt placed in chair with chair alarm at this time. Pt wide awake. talking to himself.
All bed sheets changed. Call johnston within reach.
[2023-09-01] MEDS: TYLENOL PO (23:31)
[2023-09-02] VITALS (14 sets, daily range): BP systolic 95–144; BP diastolic 59–98; PULSE 65; BMI 22.2
[2023-09-02] MEDS: TYLENOL PO ×3 (05:11→18:15)
[2023-09-02 05:21] LABS: Hematocrit 24.7 % (39.0-52.0); Hemoglobin 8.1 g/dL (13.0-18.0); Mean Corp Hgb Conc. 32.8 g/dL (33.0-37.0); Mean Corpuscular Hgb 30.6 pg (27.0-31.0); Mean Corpuscular Volume 93.2 fL (80.0-94.0); Mean Platelet Volume 10.2 fL (7.4-10.4); Platelet Count 519 10^3/uL (130-400); Red Blood Cell Count 2.65 10^6/uL (4.70-6.10); Red Cell Dist. Width 14.6 % (11.5-14.5); White Blood Cell Count 13.2 10^3/uL (4.8-10.8)
[2023-09-02 05:51] LABS: Blood Urea Nitrogen 28 mg/dl (9-20); Calcium 9.6 mg/dl (8.4-10.2); Carbon Dioxide 24 mmol/L (22-30); Chloride 101 mmol/L (98-107); Estimated Creatinine Clearance 43 ml/min; Glucose 85 mg/dl (70-99); Potassium 4.2 mmol/L (3.5-5.1); Sodium 133 mmol/L (135-145); eGFR 51.13
[2023-09-02] MEDS: SPIRIVA RESPIMAT 2.5 MCG 2 PUFF INH (07:37)
--- NOTE | 2023-09-02 08:43 | W.PN.VS ---
Addendum entered and electronically signed by Linwood Balbuena III, MD 09/02/23 14:29:
This patient was seen and examined with BEBA Garcia. I agree with the history and physical exam as well as the assessment and plan. I have the following additions:
Overall improving slowly but nutrition remains a major concern
Poor appetite and patient not eating
Refusing DHT or PEG
Will plan to move forward with SNF placement at this point given overall clinical stability and no additional active inpatient needs given refusal of DHT/PEG.
Signed:
Linwood Balbuena III, MD
[facility] Vascular Surgery
[phone] (hjew)
Original Note:
Today's Communication / Plan
-
Patient seen and examined at bedside with Dr. Linwood Balbuena III, below plan reviewed with attending.
Assessment/Plan
-
Plan/ POD# 29 PMEG/bilat CFAE. Post op course c/b ischemic colitis requiring colectomy/ostomy.
Patient and family have made it clear he does NOT want to proceed with PEG placement
GI consult, appreciate recommendations. Unfortunately, Marinol is on national backorder and given patients tenuous mental state, which has vastly improved since discontinuing Seroquel, would favor not initiating Remeron as an appetite stimulant
Cont antibiotics, leucocytosis markedly improved, and remains on room air
Cont ASA/Eliquis
PT/OT
Given patient and family do not want to proceed with PEG or Dobbhof placement to supplement poor PO intake patient is eligible for discharge to SNF
Case management following
Continue to encourage incentive spirometer
Smoking cessation education
Subjective Data
-
Date of Service: September 02, 2023
Patient seen and examined at chair side offers no new complaints at this time. Reports eagerness for discharge from hospital, again reinforced decision that he would not want to proceed with PEG or Dobbhoff placement. Denies nausea, vomiting, fever,
and chills.
Objective Data
-
Vital Signs
Temp Pulse Resp BP Pulse Ox
98.4 F 87 21 123/80 95
09/02/23 07:25 09/02/23 07:41 09/02/23 07:41 09/02/23 06:00 09/02/23 07:41
Intake and Output
09/01/23 09/02/23 09/03/23
06:59 06:59 06:59
Intake Total 980 / 980 240 / 240
Output Total 625 / 625 850 / 850
Balance 355 / 355 -610 / -610
Intake:
Oral fluids 980 / 980 240 / 240
Output:
Liquid stool amount 250 / 250
Colostomy 250 / 250
Urine, Voided 625 / 625 600 / 600
Other:
How many times incontinent 1
MODERATE amount urine
Lab Results
09/02/23 05:01
09/02/23 05:01
Calcium 9.6 mg/dl (8.4-10.2) 09/02/23 05:01
Phosphorus 4.2 mg/dl (2.5-4.5) 09/01/23 03:51
Magnesium 2.2 mg/dl (1.6-2.3) 09/01/23 03:51
Total Bilirubin 0.6 mg/dl (0.2-1.3) 08/25/23 04:12
Direct Bilirubin 0.5 mg/dl (0.0-0.4) H 08/06/23 03:27
AST 63 U/L (17-59) H 08/25/23 04:12
ALT 60 U/L (0-50) H 08/25/23 04:12
Alkaline Phosphatase 190 U/L (38-126) H 08/25/23 04:12
Total Protein 6.9 g/dl (6.3-8.2) 08/25/23 04:12
Albumin 2.9 g/dl (3.5-5.0) L 08/25/23 04:12
Physical Exam
-
Alert, calm, oriented to person and place
No tachycardia at this time
No tachypnea
Abd soft, nt, incisional site well-approximated, ostomy bag with stool and gas
Bilateral groin sites healing well and skin edges remain approximated following removal of sutures and stitches
BL feet warm
[2023-09-02] MEDS: CARDIZEM 60 MG PO (09:02)
[2023-09-02] MEDS: VITAMIN B-12 100 MCG PO (09:02)
[2023-09-02] MEDS: AUGMENTIN 875 MG/125 MG 1 TABLET PO ×2 (09:02→19:54)
[2023-09-02] MEDS: PACERONE 400 MG PO ×2 (09:02→20:52)
[2023-09-02] MEDS: LOW STRENGTH ASPIRIN 81 MG PO (09:02)
[2023-09-02] MEDS: FOLVITE 1 MG PO (09:04)
[2023-09-02] MEDS: ELIQUIS 5 MG PO ×2 (09:04→19:57)
[2023-09-02] MEDS: LOPRESSOR 50 MG PO (09:04)
--- NOTE | 2023-09-02 10:08 | W.PN.CD ---
Addendum entered and electronically signed by Alexey Millan MD 09/02/23 10:25:
Last VT I saw was 08/31/2023 and that was short and slow.
Original Note:
Today's Communication / Plan
-
Plan Amio 400 bid through September 09, 2023 then 400 mg a day
- Anticipate Amio for 3-6 months then may stop
Will consider outpatient Chioma to look for ischemia
Move to long acting dilt (lower dose empirically) and metoprolol
If he goes home he should see me as planned on 09/16/2023 at 3p. If he goes to rehab he should see me shortly after leaving rehab
Impression / Plan
-
NSVT
- One on was reported to be almost 30 sec
- I saw one strip dated 08/28/2023 lasting 9 sec, monomorphic and accelerated to 180-190 bpm
- Echo Normal LVEF, no hx of TX or syncope
- Plan Amio 400 bid through September 09, 2023 then 400 mg a day. Anticipate Amio for 3-6 months then may stop
- Continue PO BB (for NSVT and AFib rate control)
- will consider outpatient Chioma to look for ischemia
Permanent atrial fibrillation
- on PO dilt and metoprolol with good rate control
- Restarted apixaban 08/15/23
- watch rate of Afib on Amio and dilt
- Move to long acting dilt (lower dose empirically) and metoprolol
Complex vascular surgery on 08/06/2023 for AAA/iliac disease/PAD
Ischemic colitis, postop vascular surgery S/P colostomy, flexible sigmoidoscopy and colectomy with a colostomy on 08/06/[address] Padilla
Anemia, total 6 U this admit
Left kidney infarction by CTA 08/14/2023
New NATALIE => improved
HTN
Abnormal troponin, peak 0.043, likely nonischemic myocardial injury in the setting of acute illness
CAD, PCI with stenting 1993 & 1994, CABG 2016, stable without CP
Prior CVAs
HLD, continue rosuvastatin 40mg when bowel function returns
Current smoker, cessation recommended
Delirium is much improved as of 08/22/2023
Subjective:
He denies CP/SOB/palps.
Physical Exam
Vital Signs/Labs
Vital Signs
Temp Pulse Resp BP Pulse Ox
98.4 F 85 21 108/66 95
09/02/23 07:25 09/02/23 09:02 09/02/23 07:41 09/02/23 09:02 09/02/23 07:41
09/01/23 09/02/23 09/03/23
06:59 06:59 06:59
Actual Weight 70.534 kg 70.3 kg
09/02/23 05:01
09/02/23 05:01
PT 15.4 Sec (11.4-14.6) H 08/06/23 03:27
INR 1.21 08/06/23 03:27
APTT Cancelled 08/15/23 12:00
Magnesium 2.2 mg/dl (1.6-2.3) 09/01/23 03:51
Triglycerides 195 mg/dl (10-149) H 08/25/23 04:12
08/11/23 08/31/23
04:15 04:00
Coh-A-Xqhyvslplyf Pept 4920 7519
Physical Exam
Constitutional: No acute distress
EENT: Anicteric
Cardiovascular: Rhythm/rate is irregular and S1S2 is normal
Respiratory: Respiratory effort normal and Lungs clear to auscul.
GI: Soft and Distention absent
Neuro/Psych: AO x 3
Data Reviewed
-
Date of Service: September 02, 2023
--- NOTE | 2023-09-02 11:29 | PTCARENOTE ---
Pt rec'd this am from previous RN, drowsy but arousable, seated in chair. Plan of care discussed, pt is annoyed about still being in hospital. Emotional support provided, pt begrudgingly cooperative with staff. Pt with call johnston in reach, close
monitoring provided.
[2023-09-02] MEDS: TYLENOL 650 MG PO (13:45)
--- NOTE | 2023-09-02 15:20 | W.DS.TRANS ---
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
-
Discharge Instructions:
Sleep Apnea Risk Intermediate
Discharge Diagnosis/Procedures Cutdown and open exposure of BILATERAL common
femoral arteries, endovascular repair of
saccular abdominal aortic aneurysm and smaller
fusiform abdominal aortic aneurysm: Physician
modified aortic endograft. BILATERAL common
femoral artery endarterectomies with patch
angioplasty using bovine pericardium. Flexible
sigmoidoscopy, open left colectomy with takedown
of splenic flexure, division of rectum and
distal transverse colostomy.
Diet Low Residue
Additional Diets Continue low residue diet until seen by .
Randy
Activity No strenuous activity
Additional Activity No lifting over 10lbs (gallon of milk)
Driving Restrictions Not until seen by your Dr
Bathing Restrictions OK to Shower
Instructions:
Stand-Alone Forms:
Changes to Home Medications: Yes
Discharge Medications:
DC Medications w/original date entered in [employer]
cetirizine 10 mg tablet 10 mg PO PRN PRN allergy 07/07/13
acetaminophen 325 mg tablet 650 mg PO PRN PRN pain 11/12/21
cholecalciferol (vitamin D3) 50 mcg (2,000 unit) tablet 2,000 units PO DAILY@1200 Supplement 11/12/21
docusate sodium 100 mg capsule 100 mg PO DAILY@1200 Constipation 11/12/21
multivitamin with folic acid 400 mcg tablet (Tab-A-Samir) 1 tab PO DAILY@1200 Supplement 11/12/21
tiotropium bromide 1.25 mcg/actuation mist for inhalation (Spiriva Respimat) 2 puff inhalation R DAILY PRN sob/wheezing 11/12/21
vitamin B complex 1 cap PO DAILY@1200 Supplement 05/08/23
zinc acetate 50 mg (zinc) capsule 50 mg PO DAILY@1200 Supplement 05/08/23
apixaban 5 mg tablet (Eliquis) 5 mg PO BID Blood clot prevention/tx #0 tabs 05/10/23
rosuvastatin 40 mg tablet (Crestor) 40 mg PO HS High cholesterol #0 tabs 05/10/23
folic acid 400 mcg tablet 0.4 mg PO DAILY Supplement 07/28/23
amiodarone 200 mg tablet (Pacerone) 400 mg PO BID 7 days #28 tabs 09/02/23
amiodarone 400 mg tablet 400 mg PO DAILY #60 tabs 09/02/23
amoxicillin 875 mg-potassium clavulanate 125 mg tablet 1 tab PO Q12 5 days #10 tabs 09/02/23
aspirin 81 mg chewable tablet (Children's Aspirin) 81 mg PO DAILY #90 tabs 09/02/23
diltiazem HCl 120 mg capsule,extended release 24 hr 120 mg PO DAILY #90 caps 09/02/23
ipratropium 0.5 mg-albuterol 3 mg (2.5 mg base)/3 mL nebulization soln 3 ml inhalation R Q4HPRN PRN Wheezy and SOB #1 mL 09/02/23
metoprolol succinate 100 mg tablet,extended release 24 hr 100 mg PO DAILY #60 tabs 09/02/23
oxycodone 5 mg tablet 2.5 mg PO Q4HPRN PRN mild pain #10 tabs 09/02/23
oxycodone 5 mg tablet 5 mg PO Q4HPRN PRN moderate pain #10 tabs 09/02/23
Home Medication Changes
Discontinued:
lisinopril 5mg tab PO daily
Added:
metoprolol succinate 100 mg tablet,extended release 24 hr 100 mg PO DAILY #60 tabs 09/02/23
oxycodone 5 mg tablet 2.5 mg PO Q4HPRN PRN mild pain #10 tabs 09/02/23
oxycodone 5 mg tablet 5 mg PO Q4HPRN PRN moderate pain #10 tabs 09/02/23
amiodarone 200 mg tablet (Pacerone) 400 mg PO BID 7 days #28 tabs 09/02/23
amiodarone 400 mg tablet 400 mg PO DAILY #60 tabs 09/02/23
amoxicillin 875 mg-potassium clavulanate 125 mg tablet 1 tab PO Q12 5 days #10 tabs 09/02/23
aspirin 81 mg chewable tablet (Children's Aspirin) 81 mg PO DAILY #90 tabs 09/02/23
Change Dose:
diltiazem HCl 120 mg capsule,extended release 24 hr 120 mg PO DAILY #90 caps 09/02/23
Pending Results: No
--- NOTE | 2023-09-02 15:54 | WOUNDNOTE ---
WON RN NOTE: Appliance changed, stoma pink, recessed and with some mucocutaneous separation. Mild skin irritation to periwound, no leakage noticed, wear time 4 days. Used Sena seal and [place] 2 3/4' 2 piece, may need convexity in future. Offered
to teach patient how to empty and change appliance, patient declined. Patient has very poor appetite, meals left untouched. Sacrum remains intact, on air mattress, patient turns self to side. Patient at risk for developing skin breakdown due to
comorbidities and poor nutrition, despite preventative measures.
--- NOTE | 2023-09-02 16:18 | CM ---
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 Room air. WOC for stoma care & ostomy
teaching with . PT & OT recommend skilled rehab. Seen by Medical Superintendent for malnutrition. Patient declined PEG. Per nurse; appetite poor.
Met with patient and spoke with Tabitha; both agree to [facility] tomorrow by ambulance.
Spoke with Woodrow, [facility]; they are able to accept the patient tomorrow once auth info provided. The phone for report [phone], fax [phone].
Request to Carolyn Hernandez for insurance auth - pending.
Per Woodrow, nurse unit manager; no available ambulances until 8:30 this evening - agree to request ambulance for tomorrow for 1pm.
Messages with Lashonda Fuentes- she agrees to d/c tomorrow 1pm to SNF.
Plan provide insurance auth to SNF.
Plan [facility] SN[facility] tomorow by ambulance.
[2023-09-02] MEDS: TOPROL XL PO ×2 (19:55→20:40)
[2023-09-02] MEDS: PACERONE PO ×2 (19:57→20:40)
[2023-09-02] MEDS: ZOFRAN 4 MG IV (20:06)
--- NOTE | 2023-09-02 20:35 | PTCARENOTE ---
Addendum entered by Jacinda Rehman 09/02/23 21:00:
Pt able to tolerate 2nd attempt of PO medical billing instructor, but does continue to complain of nausea.
Original Note:
Pt AAOx2, agreeable. Pt attempted to take HS medications, tolerated antibiotic, eloquis. After brief break, this RN attempted to administer Metoprolol and amiodarone and pt immediately vomited following swallowing second pill. Both medications were
visible in the emesis, approximately 100mL. IV zofran given per AUG. NUCLEAR MEDICINE TECH order to attempt PO pills again once nausea subsides.
[2023-09-02] MEDS: TOPROL XL 100 MG PO (20:53)
[2023-09-03] VITALS (10 sets, daily range): BP systolic 104–128; BP diastolic 65–82; BMI 22.4
--- NOTE | 2023-09-03 03:58 | DOWNTIME ---
There was a ubitus Client Fixer Supervisor Downtime on 09/03/2023 from 0100 to 09/03/2023 at 0322. Downtime documentation of patient's care, including medication administrations, has been reconciled in the electronic record per guidelines. Refer to the
patient's paper chart under the miscellaneous tab to see printed paper medication records and downtime forms.
[2023-09-03] MEDS: TYLENOL PO ×2 (06:39)
[2023-09-03] MEDS: SPIRIVA RESPIMAT 2.5 MCG 2 PUFF INH (07:59)
[2023-09-03] MEDS: ROXICODONE 5 MG PO (08:08)
[2023-09-03] MEDS: LOW STRENGTH ASPIRIN 81 MG PO (08:13)
[2023-09-03] MEDS: ELIQUIS 5 MG PO (08:13)
[2023-09-03] MEDS: VITAMIN B-12 100 MCG PO (08:13)
[2023-09-03] MEDS: AUGMENTIN 875 MG/125 MG 1 TABLET PO (08:13)
[2023-09-03] MEDS: FOLVITE 1 MG PO (08:14)
[2023-09-03] MEDS: TOPROL XL 100 MG PO (08:14)
[2023-09-03] MEDS: CARDIZEM CD 120 MG PO (08:14)
[2023-09-03] MEDS: PACERONE 400 MG PO (08:14)
--- NOTE | 2023-09-03 08:17 | W.PN.VS ---
Today's Communication / Plan
-
patient seen and examined with Dr. Linwood Balbuena III, below plan reviewed with attending.
Assessment/Plan
-
Plan/ POD# 30 PMEG/bilat CFAE. Post op course c/b ischemic colitis requiring colectomy/ostomy.
Again encouraged patient to continue to increase PO intake
Discharge to SNF today
Subjective Data
-
Date of Service: September 03, 2023
Patient very pleasant, oriented to self and place and reports eagerness for discharge to SNF. Denies nausea, fever, and chills.
Objective Data
-
Vital Signs
Temp Pulse Resp BP Pulse Ox
97.5 F 84 23 104/72 96
09/03/23 03:10 09/03/23 08:14 09/03/23 08:02 09/03/23 08:14 09/03/23 08:02
Intake and Output
09/02/23 09/03/23 09/04/23
06:59 06:59 06:59
Intake Total 240 / 240 120 / 120
Output Total 850 / 850 375 / 375
Balance -610 / -610 -255 / -255
Intake:
Oral fluids 240 / 240 120 / 120
Output:
Emesis 100 / 100
Liquid stool amount 250 / 250
Colostomy 250 / 250
Urine, Voided 600 / 600 275 / 275
Other:
How many times incontinent 1
MODERATE amount urine
Lab Results
09/02/23 05:01
09/02/23 05:01
Calcium 9.6 mg/dl (8.4-10.2) 09/02/23 05:01
Phosphorus 4.2 mg/dl (2.5-4.5) 09/01/23 03:51
Magnesium 2.2 mg/dl (1.6-2.3) 09/01/23 03:51
Total Bilirubin 0.6 mg/dl (0.2-1.3) 08/25/23 04:12
Direct Bilirubin 0.5 mg/dl (0.0-0.4) H 08/06/23 03:27
AST 63 U/L (17-59) H 08/25/23 04:12
ALT 60 U/L (0-50) H 08/25/23 04:12
Alkaline Phosphatase 190 U/L (38-126) H 08/25/23 04:12
Total Protein 6.9 g/dl (6.3-8.2) 08/25/23 04:12
Albumin 2.9 g/dl (3.5-5.0) L 08/25/23 04:12
Physical Exam
-
Alert, calm, oriented to person and place
No tachycardia at this time
No tachypnea
BL feet warm
[2023-09-03] MEDS: ZOFRAN 4 MG IV (08:18)
[2023-09-03] MEDS: TYLENOL 650 MG PO (11:14)
--- NOTE | 2023-09-03 12:13 | WOUNDNOTE ---
POSTERIOR PENIS LATERAL
--- NOTE | 2023-09-03 12:15 | WOUNDNOTE ---
WON RN NOTE: Followed up today regarding penis and scrotal skin tear/abrasion, no longer using condom catheter. Patient repeatedly pulled off condom catheter, suspect reason for skin irritation. Appears much improved today compared to previous
photos. Applied skin prep to areas on penis, patient offers no complaints of pain. at bedside and aware, nurse reports patient going to SNF today. Ostomy appliance intact no leakage.
--- NOTE | 2023-09-03 12:26 | CM ---
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 Room air. WOC for stoma care & ostomy
teaching with . PT & OT recommend skilled rehab. Seen by Heel Sorter for malnutrition.
TT message from Carolyn Hernandez Reviewer; Approved 7 days skilled level 1(09/02-09/08), Auth#[id number]. Next review on 09/08 to option 5. Ambulance auth# [id number].
Spoke with [facility]; auth information provided. They are able to accept the patient today. The phone for report [phone], fax [phone].
Met with patient and ; both agree to [facility] today by ambulance. IMM completed with by phone earlier today and sent to her email at [email or web address] - copy provided in person.
Plan [facility] SNF today 1pm by ambulance.
--- NOTE | 2023-09-11 16:07 | W.DCSUMMARY ---
Discharge Summary
Discharge Data
Date of Admission: 08/05/23
Date of Discharge: 09/03/23
-
Pending Results: No
Hospital Course
Attending: Esha
Consultants: Pulmonary medicine, colorectal, cardiology, psychiatry, general surgery, gastroenterology
Allergies: Benzodiazepine, codeine, diazepam
Procedures:
08/05/23: Bilateral femoral artery cutdown, endarterectomy with bovine patch angioplasty, retrograde balloon angioplasty, IV lithotripsy, and stenting of left iliac artery, endovascular aneurysm repair using physician modified aortic
endograph
08/06/23: Flexible sigmoidoscopy and colectomy with a colostomy
History of present illness: This is a 78-year-old male with multiple medical conditions including: Hypercholesterolemia, erectile dysfunction, polymyalgia rheumatica, hypertension, diverticulosis, CAD, cancer, claudication, smoker, peripheral artery
disease, and SVT with ablation, alcohol abuse, COPD, atrial fibrillation, VT. Patient presented on 08/05/2023 for scheduled procedure with Dr. Balbuena. Patient presented the send with no reports of recent illness or trauma.
Hospital course: Briefly, the patient underwent scheduled femoral endarterectomies and position modified aortic endograft as planned patient then transferred to ICU for continued monitoring. Bullion Weigher consulted to aid in medical management from
the critical care perspective.
08/06/23- POD 1: Patient spiked fever overnight, started with bloody stool, lactate level elevated. Colorectal consult for postop he developed bloody stool in addition to leukocytosis lactic acidosis and fever. He then went to the OR with Dr. Padilla
for flexible sigmoidoscopy and colectomy with a colostomy.
08/07/23- POD 2: Abdominal pain well-managed with pain medications at this time, denies nausea vomiting. Plan to continue NG tube and PRAKASH drain, IV fluids, complete Zosyn today, DC A-line. Bullion Weigher managing chronic COPD. Colorectal in agreement
with plan.
08/08/23- POD 3: Patient agitated. Bullion Weigher monitoring for need for phenobarbital or Precedex. Improving from vascular standpoint. Gentle diuresis today, antiplatelet per rectum, REGISTERED CLINICAL DIETITIAN. Colorectal awaiting bowel function return. Cardiology
consult for NSVT. Continuing Cardizem drip and starting amiodarone drip.
08/09/23- POD 4: Patient disoriented this a.m., states he feels out of breath. Bullion Weigher monitoring closely for need for reintubation. Aggressive pulmonary toilet. At 2122 patient began to desaturate on high flow oxygen and the decision was made
to reintubate.
08/10/23- POD 5: Continuing gentle diuresis and neurovascular checks. Continuing mechanical ventilation with daily SAT/SBT. No changes from colorectal or cardiology today.
08/11/23- POD 6: Patient extubated and tolerating. More agitation and confusion, weaning Precedex. Continue NG tube TPN per colorectal. Stopping antibiotics and observing off. Patient afebrile, blood cultures 1 out of 2 negative, urine culture
negative, chest x-ray negative.
08/12/23- POD 7: NG tube out, some emesis overnight, keep n.p.o. for now. White count trending down. Ongoing confusion.
08/13/23- POD 8: Change sybil dressings at bedside. Heparin drip for A-fib will transition to p.o. Eliquis when tolerating diet. NG tube reinserted by colorectal.
08/14/23- POD 9: Patient febrile again, repeat cultures/CT obtained. Confusion ongoing, avoiding sedation. TPN ongoing, NG tube in place. CT images reviewed. No clear evidence of intra-abdominal abscess. Left renal artery stent appears occluded.
Increased white count/fever may be explained by infarcted kidney. Right renal stent patent. Patient continues to have good urinary output. Blood and urine cultures pending. Patient seen by psychiatry today, proceeded with recommendations.
08/15/23- POD 10: Starting medications via NG tube. Cardiac meds converted to p.o. Psych is following for confusion. Changing antibiotics. Hemoglobin low today getting 2 units of packed red blood cells. Continuing NG tube per colorectal. PRAKASH per
colorectal. TPN per colorectal. Cardiology stopped IV amiodarone in favor for metoprolol. Coffee-ground via NG tube with maroon coloring at 2300. Vital signs stable, BP stable, H&H and BMP ordered. Consulted GI and initiated Protonix drip
08/16/23- POD 11: Eliquis reinitiated TPN continues. Continuing all other therapies. New A-fib with RVR, amiodarone bolus given and started diltiazem drip for rate control. Seen by general surgery today clamping NG tube and attempting sips of clear
liquid, renewing TPN, continue antibiotics.
08/17/23- POD 12: Patient has remained off pressors/sedation for greater than 72 hours. Delirium ongoing.
08/18/23- POD 13: Continue to keep groin site dressings intact, continue aspirin Eliquis, continue PPI and TPN. Monitoring urinary output closely. Appreciate psych. NG tube is clamped per surgery.
08/19/23- POD 14: Bullion Weigher signed off, patient transition to IMU. Delirium slowly improving. Low residuals, plans to keep TPN for 1 more day
08/20/23- POD 15: Stopping TPN, speech eval today, diet per their recommendations.
08/21/23-calorie count, continued supplementation, appreciate psych. Increase PT/OT/ambulation. Cardiology making changes to rate control medications. Continues to improve from psych standpoint
08/22/23-patient alert and reorients. Continuing to encourage p.o. intake. Cardiology signed off. Psych signed off
08/23/23-08/28/23-continues to work with PT/OT. Continues to work with nutrition and psych. Continuing calorie count and supplementation. Nutritional status not improving. Patient refusing to eat. Constantly supporting and reeducating patient on
the need for nutrition. Family attempting to assist with food from home.
08/29/23 -SNF ready to accept patient, PT and OT agreeable as well. All incisions are clean dry and intact, doing well from a vascular standpoint. Nutritional status is still very poor patient will need to be taking in more p.o. before leaving the
hospital. Marinol is not available currently/on backorder. Continuing calorie count. If patient cannot make caloric needs within the next few days we will need to make decision of Dobbhoff versus PEG tube.
08/30/23-09/01/23-patient still not eating, poor appetite, appetite stimulant choices are limited. Calorie count indicates poor intake consistently despite encouragement. Long family discussion. GI consulted for possible PEG tube need.
09/02/23-patient now refusing Dobbhoff or PEG tube placement. Plan to move forward with SNF placement with no additional active inpatient needs.
09/03/23-again encouraged patient to continue to increase p.o. intake. Discharge to SNF today.
Prescriptions and follow up appointment are included in the DC summary environmental project manager note. All instructions were given to the patient in both written and verbal form and the patient expressed understanding.
Discharge Plan
-
Patient Disposition: Penitentiary/SNF
Discharge Diagnosis/Procedures: Cutdown and open exposure of BILATERAL common femoral arteries, endovascular repair of saccular abdominal aortic aneurysm and smaller fusiform abdominal aortic aneurysm: Physician modified aortic endograft. BILATERAL
common femoral artery endarterectomies with patch angioplasty using bovine pericardium. Flexible sigmoidoscopy, open left colectomy with takedown of splenic flexure, division of rectum and distal transverse colostomy.
Condition: Fair
Diet: Low Residue
Additional Diets: Continue low residue diet until seen by Dr. Padilla
Activity: No strenuous activity
Additional Activity: No lifting over 10lbs (gallon of milk)
Driving Restrictions: Not until seen by your Dr
Bathing Restrictions: OK to Shower
Activity Restrictions/Additional Instructions:
Ostomy supplies: Yasmany wafer # [id number], Sena seals and Yasmany pouch #[id number], change 2 times a week and as needed for leakage. If leakage becomes a problem, try [place] soft convex wafer # [id number] instead.
Call supply company (list in folder provided) for monthly Ostomy supplies after discharge (ask VN to order supplies while on service).
Follow up with surgeon.
Call [facility] RN nurse for ostomy pouching concerns or leakage problems [phone] or [phone] or [phone].
Penis abrasions: skin prep daily after washing with soap and water until healed. Avoid using Condom Catheters.
Referrals:
Tripp Padilla MD [Active] - in two weeks
Tabitha Carney MD [Family Provider] -
Alexey Millan MD [Active] - in one to two weeks
Lynette Mcdonald CRNP [Specified Professional Personl] - 09/24/23 9:30 am (Vascular follow up)
Prescriptions:
New
amoxicillin-pot clavulanate 875-125 mg Tablet
1 tab PO Q12 5 Days Qty: 10 0RF
ipratropium-albuterol 0.5 mg-3 mg(2.5 mg base)/3 mL Solution For Nebulization
3 ml inhalation R Q4HPRN PRN (Reason: Wheezy and SOB) Qty: 1 0RF
metoprolol succinate 100 mg Tablet Extended Release 24 Hr
100 mg PO DAILY Qty: 60 0RF
aspirin [Children's Aspirin] 81 mg Tablet,Chewable
81 mg PO DAILY Qty: 90 0RF
diltiazem HCl 120 mg Capsule,Extended Release 24hr
120 mg PO DAILY Qty: 90 0RF
oxycodone 5 mg Tablet
2.5 mg PO Q4HPRN PRN (Reason: mild pain) Qty: 10 0RF
oxycodone 5 mg Tablet
5 mg PO Q4HPRN PRN (Reason: moderate pain) Qty: 10 0RF
amiodarone 400 mg tablet
400 mg PO DAILY Qty: 60 0RF
Rx Instructions:
START September 10, 2023
Continued
cetirizine 10 MG tablet
10 mg PO PRN PRN (Reason: allergy)
acetaminophen 325 MG tablet
650 mg PO PRN PRN (Reason: pain)
docusate sodium 100 MG capsule
100 mg PO DAILY@1200
cholecalciferol (vitamin D3) 2,000 UNITS tablet
2,000 units PO DAILY@1200
multivitamin with folic acid [Tab-A-Samir] 1 TABLET tablet
1 tab PO DAILY@1200
Spiriva Respimat 4 GM mist
2 puff inhalation R DAILY PRN (Reason: sob/wheezing)
zinc acetate 50 mg (zinc) Capsule
50 mg PO DAILY@1200
Patient Comments:
vitamin B complex Capsule
1 cap PO DAILY@1200
rosuvastatin [Crestor] 40 MG tablet
40 mg PO HS Qty: 0 0RF
Eliquis 5 MG tablet
5 mg PO BID Qty: 0 0RF
folic acid 400 mcg Tablet
0.4 mg PO DAILY
Discontinued
diltiazem HCl 300 MG capsule,extended release 24hr
300 mg PO DAILY
lisinopril 5 MG tablet
5 mg PO NOON
Discharge Orders:
Discharge Patient (As Directed); Ordered 09/02/23
Ordered By: Lashonda Fuentes
Discharge Date and Time
Discharge Date/Time: 09/03/23 14:01
Print Language: SIER[place] LEONEAN
== END 2023-09-03 14:01 | DRG 268 ==
LOC: IMU 05:57
PROVIDERS: Internal Medicine; Internal Medicine Cardiovascular Disease; Nurse Practitioner; Nurse Practitioner Acute Care; Nurse Practitioner Family; Nurse Practitioner Gerontology; Registered Nurse; Student in an Organized Health Care Education/Training Program; Surgery Vascular Surgery; ADMITTING PHYSICIAN Surgery Vascular Surgery; FAMILY PHYSICIAN Family Medicine; OTHER PHYSICIAN Internal Medicine Cardiovascular Disease; OTHER PHYSICIAN Internal Medicine Critical Care Medicine; OTHER PHYSICIAN Internal Medicine Gastroenterology; OTHER PHYSICIAN Psychiatry & Neurology Psychiatry; OTHER PHYSICIAN Surgery
PROC: 04CL0ZZ Extirpation of Matter from Left Femoral Artery, Open Approach (ICD-10-PCS; 2023-08-05)
PROC: 04CK0ZZ Extirpation of Matter from Right Femoral Artery, Open Approach (ICD-10-PCS; 2023-08-05)
PROC: 04UK0KZ Supplement Right Femoral Artery with Nonautologous Tissue Substitute, Open Approach (ICD-10-PCS; 2023-08-05)
PROC: 04UL0KZ Supplement Left Femoral Artery with Nonautologous Tissue Substitute, Open Approach (ICD-10-PCS; 2023-08-05)
PROC: 04FL3ZZ Fragmentation of Left Femoral Artery, Percutaneous Approach (ICD-10-PCS; 2023-08-05)
PROC: 04FJ3ZZ Fragmentation of Left External Iliac Artery, Percutaneous Approach (ICD-10-PCS; 2023-08-05)
PROC: 04V03EZ Restriction of Abdominal Aorta with Branched or Fenestrated Intraluminal Device, One or Two Arteries, Percutaneous Approach (ICD-10-PCS; 2023-08-05)
PROC: 04FD3ZZ Fragmentation of Left Common Iliac Artery, Percutaneous Approach (ICD-10-PCS; 2023-08-05)
PROC: 0DTG0ZZ Resection of Left Large Intestine, Open Approach (ICD-10-PCS; 2023-08-06)
PROC: 0DJD8ZZ Inspection of Lower Intestinal Tract, Via Natural or Artificial Opening Endoscopic (ICD-10-PCS; 2023-08-06)
PROC: 0D1L0Z4 Bypass Transverse Colon to Cutaneous, Open Approach (ICD-10-PCS; 2023-08-06)
PROC: 5A1945Z Respiratory Ventilation, 24-96 Consecutive Hours (ICD-10-PCS; 2023-08-09)
PROC: 0BH17EZ Insertion of Endotracheal Airway into Trachea, Via Natural or Artificial Opening (ICD-10-PCS; 2023-08-09)
PROC: 02HV33Z Insertion of Infusion Device into Superior Vena Cava, Percutaneous Approach (ICD-10-PCS; 2023-08-10)
PROC: 3E0436Z Introduction of Nutritional Substance into Central Vein, Percutaneous Approach (ICD-10-PCS; 2023-08-11)
PROC: 30233N1 Transfusion of Nonautologous Red Blood Cells into Peripheral Vein, Percutaneous Approach (ICD-10-PCS; 2023-08-15)
DX: I71.42 Juxtarenal abdominal aortic aneurysm, without rupture (principal); E43 Unspecified severe protein-calorie malnutrition; J81.0 Acute pulmonary edema; J95.821 Acute postprocedural respiratory failure; K55.032 Diffuse acute (reversible) ischemia of large intestine; J18.9 Pneumonia, unspecified organism; I48.21 Permanent atrial fibrillation; I47.20 Ventricular tachycardia, unspecified; E87.20 Acidosis, unspecified; F05 Delirium due to known physiological condition; N28.0 Ischemia and infarction of kidney; N17.9 Acute kidney failure, unspecified; I5A Non-ischemic myocardial injury (non-traumatic); D62 Acute posthemorrhagic anemia; F10.939 Alcohol use, unspecified with withdrawal, unspecified; I70.203 Unspecified atherosclerosis of native arteries of extremities, bilateral legs; Z66 Do not resuscitate; Z51.5 Encounter for palliative care; J44.9 Chronic obstructive pulmonary disease, unspecified; F17.210 Nicotine dependence, cigarettes, uncomplicated; I25.10 Atherosclerotic heart disease of native coronary artery without angina pectoris; E78.00 Pure hypercholesterolemia, unspecified; I10 Essential (primary) hypertension; M35.3 Polymyalgia rheumatica; Y83.1 Surgical operation with implant of artificial internal device as the cause of abnormal reaction of the patient, or of later complication, without mention of misadventure at the time of the procedure; I25.2 Old myocardial infarction; Z79.01 Long term (current) use of anticoagulants; Z79.899 Other long term (current) drug therapy; Z82.49 Family history of ischemic heart disease and other diseases of the circulatory system; Z86.73 Personal history of transient ischemic attack (TIA), and cerebral infarction without residual deficits; Z95.1 Presence of aortocoronary bypass graft; Z95.820 Peripheral vascular angioplasty status with implants and grafts; Z95.5 Presence of coronary angioplasty implant and graft; Z68.22 Body mass index [BMI] 22.0-22.9, adult; E87.6 Hypokalemia
CPT/HCPCS: 88304; 88307; 88311; 34705; 34812; 36252; 36415; 36600; 37236; 37237; 71045; 71046; 71260; 74018; 74177; 80048; 80053; 80076; 80202; 81003; 81015; 82040; 82150; 82248; 82805; 82962; 83036; 83605; 83690; 83735; 83880; 84100; 84134; 84145; 84466; 84478; 84484; 85014; 85018; 85025; 85027; 85045; 85610; 85730; 86850; 86900; 86901; 86920; 87040; 87070; 87086; 87205; 87324; 87449; 87641; 87899; 92526; 92610; 93005; 93306; 94002; 94003; 94640; 97163; 97167; 97530; 97535; C1725; C1769; C1773; C1874; C1894; C2628; C9764; J2358; J2997; P9016; Q9967

== ENCOUNTER 2023-09-20 14:15 | Inpatient (IN) | payer OTHER, SELFPAY ==
[2023-09-20] VITALS (11 sets, daily range): BP systolic 104–159; BP diastolic 61–85; BMI 21.5
--- NOTE | 2023-09-20 11:42 | ED.GENMED ---
History of Present Illness
General
Chief Complaint: Ostomy Problem
Source: patient and ambulance crew
Time Seen by Provider: 09/20/23 11:11
Travel History
Have you had any contact with someone who has COVID-19?: No
Do you have any symptoms of coronavirus? Fever > 100 degrees, chills, cough, shortness of breath, sore throat, loss of taste or smell, muscle aches, or headache?: No
History of Present Illness
History of Present Illness:
78-year-old male with complicated past medical history presenting the emergency department for evaluation after his removed his ostomy bag and was unable to replace the ostomy. EMS states that the is concerned that there was stool within
the bag and that no visiting nurse had come to their house yet to help change it. Patient himself is without any concerns at this time and is otherwise denying any pain, fevers, chills, rigors, nausea, vomiting patient was recently discharged from
[facility] on September 16 after a complicated and long-term stay at this facility.
Past History
Past History
ED Past Medical History: CAD, Cancer (Nasal skin cancer), HTN, Hypercholesterolemia, Psychiatric (Anxiety), Other (Peripheral vascular disease) and Other (Polymyalgia rheumatica)
ED Past Surgical History: Cardiac (PTCA 1993, 1994. Cardiac catheter 2004 revealing patent stents with no intervention. Cardiac catheter March 2012 showing nonocclusive, noncritical calcific coronary artery disease. EF of 48%.), Orthopedic (Carpal
tunnel release) and Other (Mohs surgery, nasal bridge skin cancer)
Social History
Tobacco: Smoker
Alcohol: Daily
Drug: None
Personal:
Living: with family
Employment: Retired
Family History
Family History: Hypertension, CAD and Cancer
Review of Systems
Review of Systems
All Other Systems: ROS reviewed and negative except as documented in HPI and ROS
Phy Exam
Physical Exam
Physical Exam:
GENERAL: Alert , in no apparent distress
EYE: conjunctiva clear
Head: Normocephalic atraumatic
NECK: Supple,
ENT: mmm.
Heart: Regular rate and rhythm
LUNGS: no acute respiratory distress, lungs clear to auscultation
Abdomen: Ostomy site appreciated with no bag and limited stoma visualized. There is some surrounding dried stool. No tenderness. Moderate erythema surrounding ostomy
NEUROLOGICAL: Alert and oriented
SKIN: Warm and dry, skin intact.
MUSCULOSKELETAL: well perfused.
PSYCH: Normal and appropriate interaction.
Scores
Heart Failure Risk
Heart Failure Risk Score: Not Applicable
Heart Score for Chest Pain Patients
STEMI patient?: Not applicable
Withdrawal Assessment of Alcohol
Withdrawal Assessment Completed?: Not applicable
Course
Orders/Labs/Results
Orders:
Orders
09/20/23 11:46
WOUND/OSTOMY CONSULT Routine
Reason for Consult: infected stoma
09/20/23 11:47
Cephalexin Monohydrate [Keflex] 500 mg PO NOW STA
09/20/23 12:10
Basic Metabolic Panel Urgent
Complete Blood Count/With Diff Urgent
PTT Urgent
Prothrombin Time Urgent
09/20/23 12:18
Morphine Sulfate 2 mg IV NOW STA
09/20/23 12:19
CR Chest Portable - 1 View Urgent
Comment:
Reason For Exam: aspiration
Reason Study Needs to be Portable: Unable to Transport
09/20/23 12:53
Cefepime HCl [Maxipime] 2,000 mg IV NOW STA
09/20/23 13:04
Vancomycin [Vancocin] 2,000 mg 0.9% Sodium Chloride 500 ml [Nss] 500 ml IV NOW
Abnormal Lab Results
09/20/23
12:10
WBC 14.8 H 10^3/uL
(4.8-10.8)
RBC 2.54 L 10^6/uL
(4.70-6.10)
Hgb 7.9 L g/dL
(13.0-18.0)
Hct 24.3 L %
(39.0-52.0)
MCV 95.7 H fL
(80.0-94.0)
MCH 31.1 H pg
(27.0-31.0)
MCHC 32.5 L g/dL
(33.0-37.0)
RDW 17.1 H %
(11.5-14.5)
Plt Count 453 H 10^3/uL
(130-400)
Abs Immat Gran (auto) 0.1 H 10^3/uL
(0-0.05)
Absolute Neuts (auto) 13.2 H 10^3/uL
(1.4-6.5)
Absolute Lymphs (auto) 0.6 L 10^3/uL
(1.2-3.4)
Absolute Monos (auto) 0.9 H 10^3/uL
(0.1-0.6)
Immature Gran % 0.6 H %
(0-0.5)
Neutrophils % 89.0 H %
(42.2-75.2)
Lymphocytes % 4.1 L %
(20.5-51.1)
PT 18.8 H Sec
(11.4-14.6)
APTT 35.7 H Sec
(23.4-35.0)
Creatinine 1.6 H mg/dL
(0.7-1.3)
Glucose 122 H mg/dl
(70-99)
09/20/23 12:10
09/20/23 12:10
Vital Signs
Initial and Last Documented VS:
Initial Vital Signs
Temp Pulse Resp BP Pulse Ox
97.7 F 79 16 107/85 96
04/13/24 11:06 09/20/23 11:06 09/20/23 11:06 09/20/23 11:06 09/20/23 11:06
Last Documented Vital Signs
Temp Pulse Resp BP Pulse Ox
97.7 F 79 16 114/78 100
09/20/23 11:06 09/20/23 11:06 09/20/23 11:06 09/20/23 12:00 09/20/23 12:45
MDM/Problems Addressed
Differential Diagnosis Includes:
Complication from ostomy, medical legal investigator exchange/replacement, no concern for sepsis
MDM/Problems Addressed:
78-year-old male with complicated past medical history and recent complicated hospitalization presenting to the emergency department after removed the ostomy bag but was unable to replace this. Given there does not appear to be a stoma
currently present will consult general surgery to evaluate.
*Pulse Oximetry
Patient hypoxic: no
*Critical Care Note
Total Time (30-74mins, 75-104mins- exclusive of procedures): Not Applicable
Data Reviewed
Review of Other/Old Records Reveals: Labs, Records and Discharge Summary
Patient Management
Discussion with other providers: Street Superintendent
Escalation/DeEscalation of care consider admission/obs:
Seen by General Surgery who recommend admit for ostomy care and may need revision of ostomy/reversal of ostomy. Given complex PMH recommend admit to hospitalist service. Will treat with PO keflex for cellulitis surrounding stoma site at surgeries
recommendation
Informed by nurse that when she gave Keflex patient had difficulty swallowing and likely aspirated. Patient to be made n.p.o. until evaluated by speech. Chest x-ray was ordered and ultimately revealed a left basilar pneumonia. Maxipime and
vancomycin were ordered based off of risk factors. Hospitalist team was notified and accepts patient for continued evaluation and treatment.
ED Attending Note
-
Portions of this chart may have been created with voice recognition software.� Occasional wrong word or��sound alike� substitutions may have occurred due to the inherent limitations of voice recognition software.
Discharge Plan
Departure
Patient Disposition: Admit
Date of Disposition: 09/20/23
Time of Disposition: 12:33
Presentation/result/management discussed w/ accepting MD/DO: Hospitalist
Discharge Problem:
Complication of ostomy, Aspiration into airway
Prescriptions:
No Action
cetirizine 10 MG tablet
10 mg PO PRN PRN (Reason: allergy)
acetaminophen 325 MG tablet
650 mg PO PRN PRN (Reason: pain)
docusate sodium 100 MG capsule
100 mg PO DAILY@1200
cholecalciferol (vitamin D3) 2,000 UNITS tablet
2,000 units PO DAILY@1200
multivitamin with folic acid [Tab-A-Samir] 1 TABLET tablet
1 tab PO DAILY@1200
Spiriva Respimat 4 GM mist
2 puff inhalation R DAILY PRN (Reason: sob/wheezing)
zinc acetate 50 mg (zinc) Capsule
50 mg PO DAILY@1200
Patient Comments:
vitamin B complex Capsule
1 cap PO DAILY@1200
rosuvastatin [Crestor] 40 MG tablet
40 mg PO HS Qty: 0 0RF
Eliquis 5 MG tablet
5 mg PO BID Qty: 0 0RF
folic acid 400 mcg Tablet
0.4 mg PO DAILY
amoxicillin-pot clavulanate 875-125 mg Tablet
1 tab PO Q12 5 Days Qty: 10 0RF
ipratropium-albuterol 0.5 mg-3 mg(2.5 mg base)/3 mL Solution For Nebulization
3 ml inhalation R Q4HPRN PRN (Reason: Wheezy and SOB) Qty: 1 0RF
metoprolol succinate 100 mg Tablet Extended Release 24 Hr
100 mg PO DAILY Qty: 60 0RF
aspirin [Children's Aspirin] 81 mg Tablet,Chewable
81 mg PO DAILY Qty: 90 0RF
diltiazem HCl 120 mg Capsule,Extended Release 24hr
120 mg PO DAILY Qty: 90 0RF
oxycodone 5 mg Tablet
2.5 mg PO Q4HPRN PRN (Reason: mild pain) Qty: 10 0RF
oxycodone 5 mg Tablet
5 mg PO Q4HPRN PRN (Reason: moderate pain) Qty: 10 0RF
amiodarone 400 mg tablet
400 mg PO DAILY Qty: 60 0RF
Rx Instructions:
START September 10, 2023
Referrals:
Mario Pedro MD [Family Provider] -
Interventions
Interventions:
*Risk Screen - Suicide Last Done: 09/20/23 11:06
*General Assessment Last Done: 09/20/23 11:06
*Neglect/Abuse Screening Last Done: 09/20/23 11:06
*ED COVID-19 Vaccine History Last Done: 09/20/23 11:06
ZB-Xibpgl-Pgincsvsjl Assessment Last Done: 09/20/23 11:16
ED-Male Genitourinary Assessment Last Done: 09/20/23 11:16
Discharge Date and Time
Print Language: FAROESE
[2023-09-20] MEDS: KEFLEX 500 MG PO (12:11)
[2023-09-20 12:24] LABS: % Basophils 0.2 % (0-2); % Eosinophils 0.1 % (0-6); % Immature Granulocytes 0.6 % (0-0.5); % Lymphocytes 4.1 % (20.5-51.1); Absolute Immature Granulocytes 0.1 10^3/uL (0-0.05); Absolute Lymphocytes 0.6 10^3/uL (1.2-3.4); Absolute Monocytes 0.9 10^3/uL (0.1-0.6); Absolute Neutrophils 13.2 10^3/uL (1.4-6.5); Hematocrit 24.3 % (39.0-52.0); Hemoglobin 7.9 g/dL (13.0-18.0); Mean Corp Hgb Conc. 32.5 g/dL (33.0-37.0); Mean Corpuscular Hgb 31.1 pg (27.0-31.0); Mean Corpuscular Volume 95.7 fL (80.0-94.0); Mean Platelet Volume 9.5 fL (7.4-10.4); Nucleated Red Blood Cells % 0 % (-); Platelet Count 453 10^3/uL (130-400); Red Blood Cell Count 2.54 10^6/uL (4.70-6.10); Red Cell Dist. Width 17.1 % (11.5-14.5); White Blood Cell Count 14.8 10^3/uL (4.8-10.8)
[2023-09-20 12:30] LABS: INR 1.59; PT 18.8 Sec (11.4-14.6)
[2023-09-20 12:31] LABS: APTT 35.7 Sec (23.4-35.0)
[2023-09-20 12:33] LABS: Blood Urea Nitrogen 18 mg/dl (9-20); Calcium 9.1 mg/dl (8.4-10.2); Carbon Dioxide 27 mmol/L (22-30); Chloride 105 mmol/L (98-107); Estimated Creatinine Clearance 36 ml/min; Glucose 122 mg/dl (70-99); Potassium 3.6 mmol/L (3.5-5.1); Sodium 135 mmol/L (135-145); eGFR 43.56
[2023-09-20] MEDS: MORPHINE SULFATE 2 MG IV (12:47)
--- NOTE | 2023-09-20 12:55 | CON.CRS ---
Addendum entered and electronically signed by Noel Santana MD 09/20/23 13:50:
I saw and examined the patient independently.
The [facility] Coordinator's note was reviewed and I agree with the note, assessment and plan except where noted below.
Comment: This is a 78-year-old male with complex medical history status post aortic endograft on 08/05/2023 with subsequent development of ischemic colitis status post open left colectomy and distal transverse and colostomy with a protracted hospital
course followed by care at a residential facility and recently discharged home. Unfortunately patient had no visiting nurse set up so his brought him after the 'stoma appliance fell off'. On exam the stoma is pink but significantly
retracted basically to the level of the skin. There is surrounding cellulitis particularly from the 3 to 9 o'clock position.
Patient does have a leukocytosis of unclear etiology, x-ray does show possible left-sided pneumonia.
He does have some ashlyn-stomal redness/cellulitis but I do not think that is driving this leukocytosis.
Patient needs stoma care and the family will need significant education
Will discuss with colorectal team on Friday regarding possible revision versus reversal.
Original Note:
Consultation
-
Requesting Provider: [place]
Reason for Consultation: stoma retraction
Medical History
-
Chief Complaint: ostomy discomfort
History of Present Illness:
This is a 78 yo male with a h/o CAD with CABG, AFib, SVT with ablation, COPD, HTN, PVD s/p scheduled femoral endarterectomies and and position modified aortic endograft on 08/05/23 with subsequent development of ischemic colitis. Taken to the OR on
08/06/23 for open left colectomy and distal transverse colostomy. His course was complicated by delayed bowel recovery, delirium and right renal infarction as well. He was discharged to SNF on 09/11/23 and was transferred to home from there on September
10. His brought him to the ED today due to local ostomy irritation and pain. She removed the appliance this am as it was full of stool and was unable to replace. The stoma is retracted and painful with maceration of the surrounding tissues.
Does appear patent on exam although no outputs noted currently.
Past Medical History
Past Medical History: Arrhythmias (SVT with ablation, Afib), CAD, COPD, HTN, Hypercholesterolemia and Other (PAD, erectile dysfunction, polymyalgia rheumatica, right renal infarction 08/2023)
Past Surgical History: Bowel Resection (08/06 open left colectomy with takedown of splenic flexure, division of rectum and distal transverse colostomy for ischemic colitis), Cardiac (CABG x3) and Other (BL iliac stents, 08/05/23 femoral
endarterectomies and position modified aortic endograft)
Social History
Tobacco: Smoker
Alcohol: Former
Family History
Family History: Reviewed & Not Pertinent
Allergies / Home Medications
Allergy/AdvReac Type Severity Reaction Status Date / Time
Benzodiazepines Allergy works Verified 09/20/23 12:02
opposite-
gets
agitated
codeine Allergy gets wild- Verified 09/20/23 12:02
hallucinations,
visual
diazepam Allergy agitated + Verified 09/20/23 12:02
nervous
�Medication �Instructions �Recorded �Confirmed �Type
cetirizine 10 mg tablet 10 mg PO PRN PRN allergy 07/07/13 08/05/23 History
acetaminophen 325 mg tablet 650 mg PO PRN PRN pain 11/12/21 07/28/23 History
cholecalciferol (vitamin D3) 50 2,000 units PO DAILY@1200 11/12/21 08/05/23 History
mcg (2,000 unit) tablet Supplement
docusate sodium 100 mg capsule 100 mg PO DAILY@1200 Constipation 11/12/21 08/05/23 History
multivitamin with folic acid 400 1 tab PO DAILY@1200 Supplement 11/12/21 08/05/23 History
mcg tablet (Tab-A-Samir)
tiotropium bromide 1.25 2 puff inhalation R DAILY PRN 11/12/21 08/05/23 History
mcg/actuation mist for inhalation sob/wheezing
(Spiriva Respimat)
vitamin B complex 1 cap PO DAILY@1200 Supplement 05/08/23 08/05/23 History
zinc acetate 50 mg (zinc) capsule 50 mg PO DAILY@1200 Supplement 05/08/23 08/05/23 History
apixaban 5 mg tablet (Eliquis) 5 mg PO BID Blood clot 05/10/23 08/05/23 Rx
prevention/tx #0 tabs
rosuvastatin 40 mg tablet (Crestor) 40 mg PO HS High cholesterol #0 05/10/23 08/05/23 Rx
tabs
folic acid 400 mcg tablet 0.4 mg PO DAILY Supplement 07/28/23 08/05/23 History
amiodarone 400 mg tablet 400 mg PO DAILY #60 tabs 09/02/23 Rx
amoxicillin 875 mg-potassium 1 tab PO Q12 5 days #10 tabs 09/02/23 Rx
clavulanate 125 mg tablet
aspirin 81 mg chewable tablet 81 mg PO DAILY #90 tabs 09/02/23 Rx
(Children's Aspirin)
diltiazem HCl 120 mg 120 mg PO DAILY #90 caps 09/02/23 Rx
capsule,extended release 24 hr
ipratropium 0.5 mg-albuterol 3 mg 3 ml inhalation R Q4HPRN PRN 09/02/23 Rx
(2.5 mg base)/3 mL nebulization Wheezy and SOB #1 mL
soln
metoprolol succinate 100 mg 100 mg PO DAILY #60 tabs 09/02/23 Rx
tablet,extended release 24 hr
oxycodone 5 mg tablet 2.5 mg (1/2 x 5 mg) PO Q4HPRN PRN 09/02/23 Rx
mild pain #10 tabs
oxycodone 5 mg tablet 5 mg PO Q4HPRN PRN moderate pain 09/02/23 Rx
#10 tabs
Review of Systems
-
History Source: Patient
All other systems: Negative unless noted
A 10 point review of systems was completed, and was negative except as per HPI.
Physical Exam
Vital Signs
Temp 97.7 F 09/20/23 11:06
Pulse 79 09/20/23 11:06
Resp Rate 16 09/20/23 11:06
Blood pressure 114/78 09/20/23 12:00
SaO2 100 09/20/23 12:45
09/19/23 09/20/23 09/21/23
06:59 06:59 06:59
Actual Weight 68 kg
Body Mass Index (BMI) 21.5
Lab Results / Allergies
09/20/23 12:10
09/20/23 12:10
WBC 14.8 10^3/uL (4.8-10.8) H 09/20/23 12:10
Hgb 7.9 g/dL (13.0-18.0) L 09/20/23 12:10
Hct 24.3 % (39.0-52.0) L 09/20/23 12:10
Plt Count 453 10^3/uL (130-400) H 09/20/23 12:10
Abs Immat Gran (auto) 0.1 10^3/uL (0-0.05) H 09/20/23 12:10
Neutrophils % 89.0 % (42.2-75.2) H 09/20/23 12:10
Allergy/AdvReac Type Severity Reaction Status Date / Time
Benzodiazepines Allergy works Verified 09/20/23 12:02
opposite-
gets
agitated
codeine Allergy gets wild- Verified 09/20/23 12:02
hallucinations,
visual
diazepam Allergy agitated + Verified 09/20/23 12:02
nervous
Physical Exam
General: Other (chronically ill appearing); Negative Well Nourished or Comfortable
HEENT: Moist Mucous Membranes
Respiratory: Non Labored Respirations
GI: Soft, Non Distended and Tender (area around stoma is tender, stoma mostly pink but with some retraction and small ulcerations. Surrounding skin macerated. )
Skin: Warm and Other (prior incisions healing well)
Neuro: Awake and Alert
Psych: Calm
Data Reviewed
-
Labs: Labs Reviewed by me, Discussed with Physician and Discussed with Patient
Old Records: Reviewed
Assessment / Plan
-
78 yo male with PVD s/p scheduled femoral endarterectomies and and position modified aortic endograft on 08/05/23 with subsequent development of ischemic colitis. Taken to the OR on 08/06/[address] Padilla for open left colectomy and distal transverse
colostomy. His course was complicated by delayed bowel recovery, delirium and right renal infarction as well. He was discharged to SNF on 09/11/23 and was transferred to home from there on September 16. He now presents with stoma irritation and pain.
Disheveled and generally unwell appearing.
Leukocytosis with abnormal CXR showing ?PNA. Cr. elevated but stable from previous. Stoma with retraction and surrounding maceration with localized cellulitis. +BM earlier today per spouse, with removal of soiled appliance. No BM since presentation.
AFVSS.
--Admit to medicine
--Local care to ostomy site
--Stoma/wound nurse consulted
--ABX as per primary medical team
[2023-09-20] MEDS: MAXIPIME 2000 MG IV (13:16)
[2023-09-20] MEDS: ZOSYN 50 IV ×2 (13:24→20:07)
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
[2023-09-20] MEDS: VANCOCIN 540 MG IV (13:48)
--- NOTE | 2023-09-20 14:06 | PHANOTE ---
09/20/2023, med rec tech, used pt.'s NH paperwork from [facility]; per spouse, pt. was discharged yesterday (09/19/2023) and has not taken any of his meds. since he has been home; confirmed pt.'s meds. using PA paperwork.
[2023-09-20] MEDS: DILAUDID 0.5 MG IV ×4 (14:46→23:48)
[2023-09-20] MEDS: LOPRESSOR 5 MG IV ×2 (14:47→20:08)
[2023-09-20] MEDS: PROTONIX IV 40 MG IV (14:51)
[2023-09-20] MEDS: NSS (PRESERVATIVE FREE) 10 ML IV (14:51)
[2023-09-20] MEDS: D5/0.9% with KCL 20 MEQ 1000 IV (14:57)
[2023-09-20 15:24] LABS: Iron 29 ug/dl (49-181); Magnesium 1.9 mg/dl (1.6-2.3)
[2023-09-20 15:33] LABS: Percent Saturation 14 % (20-50); Total Iron Binding Capacity 201 ug/dl (261-462)
[2023-09-20 16:38] LABS: Folate 18.5 ng/ml (2.76-20); Vitamin B12 893 pg/ml (239-931)
[2023-09-20] MEDS: LOVENOX 100 MG SC (18:27)
[2023-09-21] VITALS (7 sets, daily range): BP systolic 108–142; BP diastolic 66–94; PULSE 76–93; O2SAT 99; BMI 21.5
[2023-09-21] MEDS: LOPRESSOR IV (02:20)
[2023-09-21] MEDS: ZOSYN 50 IV ×3 (02:31→14:55)
[2023-09-21] MEDS: DILAUDID 0.5 MG IV ×5 (02:51→22:47)
--- NOTE | 2023-09-21 07:42 | W.PN.HOSP.TC ---
Today's Communication/Plan
-
see bold
Assessment / Plan
Assessment / Plan
#Cellulitis surrounding ostomy site
#Hx ischemic colitis postop vascular surgery status post colostomy/flex sig and colectomy with colostomy on 08/06/[address] Padilla
WBC 14.8 with left shift, 97.7, HR 79
Colorectal surgery consulted, general surgery will discuss with colorectal team on Friday regarding possible revision versus reversal
Continue IV Zosyn, consult wound care
#Dysphagia concern
#Aspiration pneumonia left basilar on current CXR
#Hx refusal of Dobbhoff/PEG tube recent admission 09/02/2023
Pt now willing to get Peg if needed
Appreciate SPL input, cleared for pur�ed diet with nectar thickened liquids, meds crushed in applesauce
Continue IV Zosyn for aspiration pneumonia, for VSE tomorrow
#Possible cholecystitis on CT
Follow-up recommendations for from general surgery
Continue IV Zosyn as above
On therapeutic Lovenox instead of Eliquis in case he needs procedures
#Acute on chronic macrocytic anemia
Monitor hemoglobin
#PAD/AAA/iliac disease
08/05/23: Bilateral femoral artery cutdown, endarterectomy with bovine patch angioplasty, retrograde balloon angioplasty, IV lithotripsy, and stenting of left iliac artery, endovascular aneurysm repair using physician modified aortic endograph
Complicated hospital course with 30-day stay in the hospital
#CKD 3B
#Left kidney infarction by CT 08/14/2023
Vascular aware on 08/13 regarding findings
Creat 1.4 appears baseline since August 2023
Would renally dose medications, no nephrotoxic drugs or NSAIDs
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
#Chronic memory impairment x1 year undiagnosed
#Permanent A-fib
Resume diltiazem, metoprolol
On therapeutic Lovenox instead of Eliquis in case he needs procedures
#HTN�benign
Resume diltiazem metoprolol
#CAD/PCI with stenting 1993 1994
CABG 2016
#Hx NSVT August 29, 2023
Follows with [facility] cardiology
2D echo 08/11/2023: EF 55%, mild LVH, no wall abnormalities, severe biatrial enlargement no valvular disease
Resume atorvastatin
#HLD
Resume atorvastatin
#Former smoker stopped July 2023
-Former 1 pack a day x 30 years
#Former alcohol abuse stopped July 2023
-Former 4 beers daily 4 days a week
#Chronic ambulatory dysfunction
PT/OT/case management consult
#History of postop delirium August 2023 admission resolved on discharge
Insomnia
Resume p.o. trazodone
DVT prophylaxis - SQ Lovenox 100 mg daily(1.5 Mg/KG), hold eliquis in case he needs procedures
DNR per patient
Updated son on phone 09/20
Total time spent to see the patient on the floor, examine the patient, review data and lab results, discuss treatment plan with patient, nursing staff around 51 minutes.
Physical Exam
General: Appears chronically debilitated, no acute distress
HEENT: Normocephalic, Atraumatic, EOMI, MMM
Respiratory: Clear to Auscultation bilaterally
Cardiac: Normal S1/S2, Regular Rate and Rhythm
GI: Soft, mild tenderness, ostomy in place
Extremities: No Clubbing, Cyanosis, or Edema
Neuro: Nonfocal/Grossly Intact
Psych: Calm, Cooperative
Anticipated Discharge: > 48 hours
Subjective/Interval History
-
Date of Service: September 21, 2023
Patient complains of continuous abdominal pain. No fever, no vomiting. He does have a mild cough.
Objective Data
-
Labs:
Laboratory Results
09/21/23
06:00
WBC Pending
Hgb Pending
Hct Pending
Plt Count Pending
Sodium Pending
Potassium Pending
Chloride Pending
Carbon Dioxide Pending
BUN Pending
Creatinine Pending
Glucose Pending
Calcium Pending
Total Bilirubin Pending
AST Pending
ALT Pending
Alkaline Phosphatase Pending
Vital Signs:
Vital Signs
Temp Pulse Resp BP Pulse Ox
98.3 F 71 16 129/74 98
09/21/23 07:38 09/21/23 07:38 09/21/23 07:38 09/21/23 07:38 09/21/23 07:38
I&O
09/20/23 09/21/23 09/22/23
06:59 06:59 06:59
Intake Total 360 / 360
Output Total 200 / 200
Balance 160 / 160
[2023-09-21] MEDS: PROTONIX IV 40 MG IV (08:15)
[2023-09-21] MEDS: NSS (PRESERVATIVE FREE) 10 ML IV (08:16)
[2023-09-21] MEDS: LOPRESSOR 5 MG IV (08:16)
[2023-09-21 08:54] LABS: % Basophils 0.6 % (0-2); % Eosinophils 2.4 % (0-6); % Immature Granulocytes 0.6 % (0-0.5); % Lymphocytes 7.1 % (20.5-51.1); % Neutrophils 83.3 % (42.2-75.2); Absolute Basophils 0.1 10^3/uL (0-0.2); Absolute Eosinophils 0.3 10^3/uL (0-0.7); Absolute Immature Granulocytes 0.1 10^3/uL (0-0.05); Absolute Lymphocytes 0.9 10^3/uL (1.2-3.4); Absolute Monocytes 0.7 10^3/uL (0.1-0.6); Absolute Neutrophils 10.3 10^3/uL (1.4-6.5); Hematocrit 24.2 % (39.0-52.0); Mean Corp Hgb Conc. 33.1 g/dL (33.0-37.0); Mean Corpuscular Hgb 30.5 pg (27.0-31.0); Mean Corpuscular Volume 92.4 fL (80.0-94.0); Mean Platelet Volume 9.6 fL (7.4-10.4); Nucleated Red Blood Cells % 0 % (-); Platelet Count 371 10^3/uL (130-400); Red Blood Cell Count 2.62 10^6/uL (4.70-6.10); Red Cell Dist. Width 16.8 % (11.5-14.5); White Blood Cell Count 12.3 10^3/uL (4.8-10.8)
[2023-09-21] MEDS: OMNIPAQUE 50 ML PO (09:03)
[2023-09-21 09:22] LABS: ALT (SGPT) 20 U/L (0-50); AST (SGOT) 30 U/L (17-59); Albumin 2.9 g/dl (3.5-5.0); Alkaline Phosphatase 246 U/L (38-126); Blood Urea Nitrogen 14 mg/dl (9-20); Carbon Dioxide 23 mmol/L (22-30); Chloride 109 mmol/L (98-107); Estimated Creatinine Clearance 41 ml/min; Glucose 95 mg/dl (70-99); Potassium 3.8 mmol/L (3.5-5.1); Sodium 137 mmol/L (135-145); Total Bilirubin 0.3 mg/dl (0.2-1.3); Total Protein 6.2 g/dl (6.3-8.2); eGFR 51.13
--- NOTE | 2023-09-21 09:57 | PTOTSP ---
Speech Therapy
Presentation: Patient was oriented. Patient's speech and language appeared to be WNL during conversation. Patient denied communicative deficits.
Patient demonstrated baseline wet coughing prior to PO trials. Patient stated this is 'new'.
Previous ST: Patient was seen on 08/28/23 for speech therapy in which patient was tolerating regular consistency solids and thin liquids. Patient was previously recommended Level 5 and thin liquids prior to being advanced to regular consistency
solids and thin liquids.
Swallowing Function: Patient was observed with several straw sips of thin liquids and tsp of puree following thins in which patient demonstrated immediate wet coughing. COIL PLACER trialed nectar thick liquids (mildly thick) via tsp and puree via tsp in
which patient appeared to tolerate as he did not exhibit any additional overt s/sx of aspiration. Thus, possible residual symptoms with coughing after puree trials post-thins. Given the above, recent CXR, and hx of dysphagia, recommend trial of
IDDSI 4 (puree solids) and mildly thick (nectar) liquids with VSE to quantify swallowing function.
Recommendations:
1) Trial of IDDSI 4 (puree solids) and mildly (nectar) thick liquids
2) Strict aspiration precautions
3) Medications as tolerated
4) VSE
Plan: COIL PLACER will continue to follow; pending hospitalization.
--- NOTE | 2023-09-21 10:05 | W.PN.GS2 ---
Today's Communication / Plan
-
CT abd/pelvis
Assessment / Plan
-
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
hospital course followed by care at a retirement facility and recently discharged home. Presented with pain and irritation/cellulitis to retracted stoma site with leukocytosis and possible left lower lobe pna on CXR.
AFVSS
Leukocytosis present but trending down
Pain persists, no stool outputs thus far although flatus noted in appliance
Plan:
CT abd/pelvis with IV/PO contrast to further evaluate etiology of pain
Ostomy/stoma nurse consulted
ABX/Medical management as per primary team
Subjective Data
-
Date of Service: September 21, 2023
Patient seen and examined at bedside with Dr. Santana. Reports pain overnight around the stoma, asking for more pain medications.
Objective Data
-
Intake and Output
09/20/23 09/21/23 09/22/23
06:59 06:59 06:59
Intake Total 360 / 360
Output Total 200 / 200
Balance 160 / 160
Intake:
Oral fluids 360 / 360
Output:
Urine, Voided 200 / 200
Other:
Number of approximated MODERATE 3
amounts of urine
Vital Signs
Temp Pulse Resp BP Pulse Ox
98.3 F 71 16 129/74 98
09/21/23 07:38 09/21/23 08:16 09/21/23 07:38 09/21/23 08:16 09/21/23 07:38
Lab Results
09/21/23 08:46
09/21/23 08:46
Calcium 9.0 mg/dl (8.4-10.2) 09/21/23 08:46
Magnesium 1.9 mg/dl (1.6-2.3) 09/20/23 12:10
Total Bilirubin 0.3 mg/dl (0.2-1.3) 09/21/23 08:46
AST 30 U/L (17-59) 09/21/23 08:46
ALT 20 U/L (0-50) 09/21/23 08:46
Alkaline Phosphatase 246 U/L (38-126) H 09/21/23 08:46
Total Protein 6.2 g/dl (6.3-8.2) L 09/21/23 08:46
Albumin 2.9 g/dl (3.5-5.0) L 09/21/23 08:46
Physical Exam
-
NAD
ABD soft, ND, tender around stoma site. Stoma pink, slightly retracted/flat with surrounding erythema. Some flatus in appliance but no stool.
[2023-09-21] MEDS: D5/0.9% with KCL 20 MEQ 1000 IV (10:51)
[2023-09-21] MEDS: ZINC SULFATE 220 MG PO (14:51)
[2023-09-21] MEDS: ROXICODONE 5 MG PO ×2 (14:51→19:31)
[2023-09-21] MEDS: FOLVITE 0.400000000000000022 MG PO (14:52)
[2023-09-21] MEDS: PACERONE 400 MG PO (14:52)
[2023-09-21] MEDS: VITAMIN D3 (cholecalciferol) 50 MCG PO (14:53)
[2023-09-21] MEDS: TOPROL XL 50 MG PO (14:53)
--- NOTE | 2023-09-21 16:22 | CM ---
IA completed with pts at bedside.
Pt is a 78yr old male admitted for cellulitus around this stoma site and aspiration PNE
Pt and his live in a 2 story home with 5+7 steps to enter.
Pt was previously at and dc'd to [facility] on 09/03/23. He returned home from [facility] on 09/16, and then readmitted to on 09/19.
Per they had not yet started VN. notes that when they got him home, her grandson lifed him up and carried him up the steps where he stayed in bed.
notes that he had poor participation in therapy at [facility] and little to no mobility once he was dc'd to home.
Pt also with poor intakes and a previous refusal of a feeding tube during his last hospital admission.
says that she is hesitant to put pt in a facility again, but does realize it is more than she can handle.
SW provided information on hired caregivers, family support, and LTC.
PCP; Vashti Carney
Pharm; [facility]
PLAN: TBD, options given to .
[2023-09-21] MEDS: DILAUDID IV (17:24)
[2023-09-21] MEDS: LIPITOR 80 MG PO (17:25)
[2023-09-21] MEDS: LOVENOX 100 MG SC (17:25)
[2023-09-21] MEDS: ZOSYN IV ×2 (19:30→22:38)
[2023-09-21] MEDS: PEPCID 20 MG PO (19:31)
[2023-09-21] MEDS: MIRALAX 17 GRAMS PO (22:43)
[2023-09-21] MEDS: DESYREL 50 MG PO (22:43)
[2023-09-22] VITALS (8 sets, daily range): BP systolic 125–153; BP diastolic 67–80
[2023-09-22] MEDS: DILAUDID 0.5 MG IV ×2 (02:02→06:39)
[2023-09-22] MEDS: ZOSYN 50 IV ×4 (02:03→21:40)
[2023-09-22] MEDS: D5/0.9% with KCL 20 MEQ 1000 IV (04:42)
[2023-09-22] MEDS: ROXICODONE 5 MG PO ×2 (06:45→22:47)
[2023-09-22 07:13] LABS: Hematocrit 22.3 % (39.0-52.0); Mean Corp Hgb Conc. 31.4 g/dL (33.0-37.0); Mean Corpuscular Hgb 30.2 pg (27.0-31.0); Mean Corpuscular Volume 96.1 fL (80.0-94.0); Mean Platelet Volume 9.6 fL (7.4-10.4); Platelet Count 379 10^3/uL (130-400); Red Blood Cell Count 2.32 10^6/uL (4.70-6.10); White Blood Cell Count 9.9 10^3/uL (4.8-10.8)
[2023-09-22] MEDS: VITAMIN B1 100 MG PO (08:04)
[2023-09-22] MEDS: B COMPLEX w/VITAMIN C 1 CAPLET PO (08:04)
[2023-09-22] MEDS: VITAMIN D3 (cholecalciferol) 50 MCG PO (08:04)
[2023-09-22] MEDS: PACERONE 400 MG PO (08:04)
[2023-09-22] MEDS: FOLVITE 0.400000000000000022 MG PO (08:04)
[2023-09-22] MEDS: PEPCID 20 MG PO ×2 (08:04→21:41)
[2023-09-22] MEDS: TOPROL XL 50 MG PO (08:04)
[2023-09-22] MEDS: ZINC SULFATE 220 MG PO (08:04)
[2023-09-22] MEDS: PROTONIX IV 40 MG IV (08:04)
[2023-09-22] MEDS: THERAGRAN 1 TABLET PO (08:04)
[2023-09-22] MEDS: NSS (PRESERVATIVE FREE) 10 ML IV (08:05)
[2023-09-22 08:11] LABS: ALT (SGPT) 17 U/L (0-50); AST (SGOT) 21 U/L (17-59); Albumin 2.4 g/dl (3.5-5.0); Alkaline Phosphatase 220 U/L (38-126); Blood Urea Nitrogen 10 mg/dl (9-20); Calcium 8.7 mg/dl (8.4-10.2); Carbon Dioxide 24 mmol/L (22-30); Chloride 105 mmol/L (98-107); Estimated Creatinine Clearance 41 ml/min; Glucose 97 mg/dl (70-99); Magnesium 1.8 mg/dl (1.6-2.3); Phosphorus 3.2 mg/dl (2.5-4.5); Potassium 3.6 mmol/L (3.5-5.1); Sodium 135 mmol/L (135-145); Total Bilirubin 0.3 mg/dl (0.2-1.3); Total Protein 5.4 g/dl (6.3-8.2); eGFR 51.13
--- NOTE | 2023-09-22 08:49 | W.PN.GS2 ---
Today's Communication / Plan
-
HIDA scan
Assessment / Plan
-
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
hospital course followed by care at a senior care facility and recently discharged home. Presented with pain and irritation/cellulitis to retracted stoma site with leukocytosis and possible left lower lobe pna on CXR.
Video swallow pending
CT imaging on 09/20 with subacute renal infarct (d/w hospitalist team), possible cholecystitis, cholelithiasis noted. No RUQ tenderness. LFT's WNL
AFVSS
Leukocytosis resolved with ABX
Plan:
Will check HIDA scan to further evaluate gallbladder
NPO for testing
Colorectal service/Ostomy/stoma nurse following stoma
ABX/Medical management as per primary team
Subjective Data
-
Date of Service: September 22, 2023
Patient seen and examined at bedside. Notes generalized abdominal pain. Denies n/v.
Objective Data
-
Intake and Output
09/21/23 09/22/23 09/23/23
06:59 06:59 06:59
Intake Total 360 / 360 1780 / 1780
Output Total 200 / 200 600 / 600
Balance 160 / 160 1180 / 1180
Intake:
Oral fluids 360 / 360 1080 / 1080
IV fluids (Total) 600 / 600
IV piggybacks 100 / 100
Output:
Liquid stool amount 100 / 100
Colostomy 100 / 100
Urine, Voided 200 / 200 500 / 500
Other:
Number of approximated MODERATE 3
amounts of urine
Vital Signs
Temp Pulse Resp BP Pulse Ox
97.4 F 80 16 138/76 98
09/22/23 07:00 09/22/23 07:00 09/22/23 07:00 09/22/23 07:00 09/22/23 07:00
Lab Results
09/22/23 06:51
09/22/23 06:51
Calcium 8.7 mg/dl (8.4-10.2) 09/22/23 06:51
Phosphorus 3.2 mg/dl (2.5-4.5) 09/22/23 06:51
Magnesium 1.8 mg/dl (1.6-2.3) 09/22/23 06:51
Total Bilirubin 0.3 mg/dl (0.2-1.3) 09/22/23 06:51
AST 21 U/L (17-59) 09/22/23 06:51
ALT 17 U/L (0-50) 09/22/23 06:51
Alkaline Phosphatase 220 U/L (38-126) H 09/22/23 06:51
Total Protein 5.4 g/dl (6.3-8.2) L 09/22/23 06:51
Albumin 2.4 g/dl (3.5-5.0) L 09/22/23 06:51
Physical Exam
-
NAD, chronically ill appearing
ABD soft, ND, tender around stoma site. No RUQ tenderness. Flatus/stool in appliance
[2023-09-22] MEDS: MORPHINE SULFATE 1 MG IV ×2 (10:14→16:04)
--- NOTE | 2023-09-22 10:17 | W.PN.CRS1 ---
Today's Communication / Plan
-
no plans for surgery regarding the stoma
npo for HIDA - okay for diet from our perspective when can eat
wound RN for stoma care
Assessment/Plan
-
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
1. WBC normalized - 9.9. Vitals normal.
2. Remain NPO for testing. Okay for regular diet with Ensure from our perspective when able to eat.
3. OOB as tolerated.
4. Wound RN consulted for stoma care.
5. No surgery at this time, stoma is functioning and patient does not want any further surgeries.
6. Eliquis currently on hold.
Subjective Data
Subjective Data
Date of Service: September 22, 2023
Patient states he feels 'so so'. He has mild abdominal pain. He has no other complaints.
Objective Data
-
Vital Signs
Temp Pulse Resp BP Pulse Ox
97.4 F 80 16 138/76 98
09/22/23 07:00 09/22/23 07:00 09/22/23 07:00 09/22/23 07:00 09/22/23 07:00
Intake & Output
09/21/23 09/22/23 09/23/23
06:59 06:59 06:59
Intake Total 360 / 360 1780 / 1780
Output Total 200 / 200 600 / 600
Balance 160 / 160 1180 / 1180
Intake:
Oral fluids 360 / 360 1080 / 1080
IV fluids (Total) 600 / 600
IV piggybacks 100 / 100
Output:
Liquid stool amount 100 / 100
Colostomy 100 / 100
Urine, Voided 200 / 200 500 / 500
Other:
Number of approximated MODERATE 3
amounts of urine
Lab Results
09/22/23 06:51
09/22/23 06:51
Physical Exam
-
General: No Acute Distress and AOx3
Abdomen: Soft, Non Distended, Tender (mild around stoma) and Other (stoma retracted, but warm and functioning)
Skin: Warm and Dry
Incision: Clear, Dry, Intact
--- NOTE | 2023-09-22 12:00 | W.PN.HOSP.TC ---
Addendum entered and electronically signed by Le Beltrán MD 09/22/23 15:40:
updated on the phone.
Original Note:
Today's Communication/Plan
-
see A/P
Assessment / Plan
Assessment / Plan
A/P:
# Cellulitis surrounding ostomy site, much improved
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 Padilla
resolved leucocytosis
Colorectal surgery consulted, general surgery will discuss with colorectal team on Friday regarding possible revision versus reversal
Continue IV Zosyn
consulted wound care
# Concern for dysphagia
# Aspiration pneumonia left basilar on current CXR
# Hx of refusal of Dobbhoff/PEG tube recent admission 09/02/2023
Pt now willing to get PEG if needed
Appreciate SPL input, cleared for pur�ed diet with nectar thickened liquids, meds crushed in applesauce
Continue IV Zosyn for aspiration pneumonia
Follow VSE result
# Possible cholecystitis on CT
Follow-up recommendations for from general surgery
Continue IV Zosyn as above
On therapeutic Lovenox instead of Eliquis in case he needs procedures
Check HIDA tmr
# Acute on chronic macrocytic anemia
Monitor hemoglobin
Transfuse 1 unit PRBC 09/21 due to Hgb at 7.0
Follow iron panel, B12, folate level
# PAD/AAA/iliac disease
08/05/23: Bilateral femoral artery cutdown, endarterectomy with bovine patch angioplasty, retrograde balloon angioplasty, IV lithotripsy, and stenting of left iliac artery, endovascular aneurysm repair using physician modified aortic endograph
Complicated hospital course with 30-day stay in the hospital
# CKD 3B
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
Vascular aware on 08/13 regarding findings
Creat 1.4 appears baseline since August 2023
Would renally dose medications, no nephrotoxic drugs or NSAIDs
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
# Chronic memory impairment x1 year undiagnosed
# Permanent A-fib
# HTN�benign
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
has NOT resumed BOX BLANK MACHINE FEEDER Cardizem
On therapeutic Lovenox instead of Eliquis in case he needs procedures
# CAD/PCI with stenting 1993 1994
# CABG 2016
# Hx NSVT August 29, 2023
Follows with [facility] cardiology
2D echo 08/11/2023: EF 55%, mild LVH, no wall abnormalities, severe biatrial enlargement no valvular disease
Resumed atorvastatin
# HLD
Resume atorvastatin
# Former smoker stopped July 2023
Former 1 pack a day x 30 years
# Former alcohol abuse stopped July 2023
Former 4 beers daily 4 days a week
# Chronic ambulatory dysfunction
PT/OT/case management consult
# History of postop delirium August 2023 admission resolved on discharge
# Insomnia
Resumed p.o. trazodone
DVT prophylaxis- SQ Lovenox 100 mg daily (1.5 Mg/KG), hold Eliquis in case he needs procedures
DNR per patient
Dr Matamoros updated son on phone 09/20
DW RN
Total time spent to see the patient on the floor, examine the patient, review data and lab results, discuss treatment plan with patient, nursing staff around 51 minutes.
Anticipated Discharge: > 48 hours
Subjective/Interval History
-
Date of Service: September 22, 2023
Objective Data
-
Labs:
Laboratory Results
09/22/23
06:51
WBC 9.9
Hgb 7.0 L
Hct 22.3 L
Plt Count 379
Sodium 135
Potassium 3.6
Chloride 105
Carbon Dioxide 24
BUN 10
Creatinine 1.4 H
Glucose 97
Calcium 8.7
Total Bilirubin 0.3
AST 21
ALT 17
Alkaline Phosphatase 220 H
Vital Signs:
Vital Signs
Temp Pulse Resp BP Pulse Ox
36.4 C 82 16 135/77 99
09/22/23 11:00 09/22/23 11:00 09/22/23 11:00 09/22/23 11:00 09/22/23 11:00
I&O
09/21/23 09/22/23 09/23/23
06:59 06:59 06:59
Intake Total 360 / 360 1780 / 1780
Output Total 200 / 200 600 / 600
Balance 160 / 160 1180 / 1180
Review of Systems
-
All other systems: Reviewed and negative
Physical Exam
-
General: Well Developed, No Apparent Distress, Comfortable and Appears Chronically Ill
HEENT: Normocephalic and Atraumatic
Respiratory: Clear to Auscultation and Non Labored Respirations; Negative Wheezes or Accessory Resp Muscle Use
Cardiac: Regular Rhythm and S1/S2
GI: Soft, Nontender and Ostomy
Neuro: Awake and Alert
Psych: Calm and Intact Judgement/Insight
Data Reviewed
-
Labs: Labs Reviewed by me
--- NOTE | 2023-09-22 12:05 | W.PN.UPDATE ---
Update Note
Progress Note Update
Discussed with NM department. Unable to have HIDA on same day as video swallow. Will reschedule HIDA for tomorrow.
OK for diet as cleared by PRINCIPAL TECHNICAL WRITER and will make NPO after MN for testing.
[2023-09-22] MEDS: KCL 40 MEQ PO (12:09)
[2023-09-22 13:03] LABS: Total Iron Binding Capacity 171 ug/dl (261-462)
[2023-09-22 13:05] LABS: Iron < 20 ug/dl (49-181)
--- NOTE | 2023-09-22 13:21 | PTOTSP ---
Video Swallow Examination
Mild oral and severe pharyngeal dysphagia. Reduced tongue base retraction, epiglottic inversion, a significantly diminished pharyngeal stripping wave and reduced distension of PES. This resulted in vallecular and pyriform sinus stasis with
consistent trace laryngeal penetration arising from pharyngeal stasis across all trials. One instance of aspiration to thin liquid wash when attempting to clear pudding from vallecula.
Recommend
1. Patient is at high risk for aspiration despite any diet modifications/NPO is safest. Patient declined feeding tube during recent past admission, therefore likely to continue to refuse. If that is the case, diet texture consistent with full liquid
is most suitable and would likely result in the least amount of aspiration.
2. Meds crushed in honey thick liquid.
3. At least one dry swallow with every mouthful.
4. Aspiration precautions.
5. Consider neurology consult given history of stroke and possibility of new stroke or some other neurological source contributing to dysphagia.
6. ST to follow. Continued ST in next level of care.
[2023-09-22 14:37] LABS: Vitamin B12 849 pg/ml (239-931)
--- NOTE | 2023-09-22 14:45 | WOUNDNOTE ---
[facility] RN note: Patient admitted with skin breakdown around stoma. Stoma flush and in skin dips around it. Peristomal skin red/denuded around stoma about 1-2cm. Stoma about 1x1 1/8 inches. Lower sacral/buttocks with dry abraded skin. Skin on heels
intact. Appetite good. Emptied 50ml thick liquid dark brown effluent from pouch. Colostomy appliance changed using Yasmany cut to fit soft convex wafer # [id number] with Sena seal and Yasmany pouch # [id number]. Ostomy supplies left in room. Discussed
with patient's . Next appliance change due . interested in seeing appliance change at 2pm or later if scheduling works. Patient is on a Waffle air overlay. Air chair cushion in chair.
--- NOTE | 2023-09-22 15:11 | WOUNDNOTE ---
LUQ STOMA (with photo flash)
--- NOTE | 2023-09-22 15:29 | CM ---
Case management following for d/c planning
Pt recs for SNF by PT/OT
Spoke with pt and his at bedside - refusing to return to SNF
would like to bring pt home. In processing of talking with family members for assistance. Given list of Care Givers to contact
Agreeable to Home services - Referral sent in Care Port.
CM will continue to follow
Plan - anticipate home with HH and family support/care takers
[2023-09-22] MEDS: LIPITOR 80 MG PO (17:22)
[2023-09-22] MEDS: LOVENOX 100 MG SC (17:22)
[2023-09-22] MEDS: DESYREL 50 MG PO (21:41)
[2023-09-22] MEDS: MIRALAX 17 GRAMS PO (21:41)
--- NOTE | 2023-09-22 23:04 | PTCARENOTE ---
Pt forgetful. This RN came in room to find pt attempting to get oob. Bed alarm not working. Bed alarm and bed alarm box replaced, still not alarming. Maintenance, biomed, and Erica Gray informed about broken bed alarms. Maintenance and biomed
unable to fix them so med sitter placed in room for safety. Call johnston within reach, plan of care ongoing.
[2023-09-23] VITALS (8 sets, daily range): BP systolic 121–171; BP diastolic 66–89; PULSE 67–72; O2SAT 98; BMI 21.8
[2023-09-23] MEDS: ZOSYN 50 IV ×4 (02:43→20:40)
[2023-09-23] MEDS: MORPHINE SULFATE 1 MG IV ×4 (02:54→21:29)
[2023-09-23] MEDS: D5/0.9% with KCL 20 MEQ 1000 IV (04:42)
[2023-09-23 05:44] LABS: Hematocrit 25.1 % (39.0-52.0); Hemoglobin 8.2 g/dL (13.0-18.0); Mean Corp Hgb Conc. 32.7 g/dL (33.0-37.0); Mean Corpuscular Volume 91.9 fL (80.0-94.0); Mean Platelet Volume 9.6 fL (7.4-10.4); Platelet Count 355 10^3/uL (130-400); Red Blood Cell Count 2.73 10^6/uL (4.70-6.10); White Blood Cell Count 8.6 10^3/uL (4.8-10.8)
[2023-09-23 06:14] LABS: Blood Urea Nitrogen 11 mg/dl (9-20); Calcium 8.4 mg/dl (8.4-10.2); Carbon Dioxide 24 mmol/L (22-30); Chloride 108 mmol/L (98-107); Estimated Creatinine Clearance 44 ml/min; Glucose 99 mg/dl (70-99); Magnesium 1.7 mg/dl (1.6-2.3); Sodium 134 mmol/L (135-145); eGFR 55.88
[2023-09-23] MEDS: ROXICODONE 5 MG PO (06:36)
--- NOTE | 2023-09-23 07:59 | W.PN.UPDATE ---
Addendum entered and electronically signed by Van Kurtz MD 09/23/23 09:49:
No evidence of cystic duct obstruction on HIDA. No plans for cholecystectomy at this time.
-- Can advance diet as tolerated.
-- Please call with any questions or concerns
Original Note:
Update Note
Progress Note Update
Patient currently not in room, down in radiology getting HIDA scan. Will follow-up on results of imaging and coordinate next steps
[2023-09-23] MEDS: PACERONE 400 MG PO (09:14)
[2023-09-23] MEDS: FOLVITE 0.400000000000000022 MG PO (09:14)
[2023-09-23] MEDS: VITAMIN D3 (cholecalciferol) 50 MCG PO (09:14)
[2023-09-23] MEDS: THERAGRAN 1 TABLET PO (09:14)
[2023-09-23] MEDS: B COMPLEX w/VITAMIN C 1 CAPLET PO (09:14)
[2023-09-23] MEDS: TOPROL XL 50 MG PO (09:14)
[2023-09-23] MEDS: PROTONIX IV 40 MG IV (09:15)
[2023-09-23] MEDS: VITAMIN B1 100 MG PO (09:15)
[2023-09-23] MEDS: NSS (PRESERVATIVE FREE) 10 ML IV (09:15)
[2023-09-23] MEDS: ZINC SULFATE 220 MG PO (09:15)
--- NOTE | 2023-09-23 10:19 | W.PN.UPDATE ---
Update Note
Progress Note Update
Attempted to see patient during rounds at 8:45 but patient was not in room, as he was getting a study performed. Continue local wound care per wound RN. No surgery at this time.
--- NOTE | 2023-09-23 10:35 | W.PN.HOSP.TC ---
Today's Communication/Plan
-
see A/P
Assessment / Plan
Assessment / Plan
A/P:
# Cellulitis surrounding ostomy site, much improved
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 Padilla
resolved leucocytosis
Colorectal surgery consulted, per note, pt is not interested in any further surgery with regard to the ostomy.
Continue IV Zosyn
wound care on board
# Concern for dysphagia
# Aspiration pneumonia left basilar on current CXR
# Hx of refusal of Dobbhoff/PEG tube recent admission 09/02/2023
s/p VSE, recc full liquid for the lowest risk of aspiration
Continue IV Zosyn for aspiration pneumonia
to discuss option of PEG with pt
# Ruled out cholecystitis (was noted on CT)
No evidence of cystic duct obstruction on HIDA.
No plans for cholecystectomy at this time.
appreciate GS input
# Acute on chronic macrocytic anemia
Monitor hemoglobin
Transfused 1 unit PRBC 09/21
iron panel, B12, folate levels reviewed
# PAD/AAA/iliac disease
08/05/23: Bilateral femoral artery cutdown, endarterectomy with bovine patch angioplasty, retrograde balloon angioplasty, IV lithotripsy, and stenting of left iliac artery, endovascular aneurysm repair using physician modified aortic endograph
Complicated hospital course with 30-day stay in the hospital
# CKD 3B
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
Vascular aware on 08/13 regarding findings
Creat 1.3 today, at baseline
Would renally dose medications, no nephrotoxic drugs or NSAIDs
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
# Chronic memory impairment x1 year undiagnosed
# Permanent A-fib
# HTN�benign
Substitute [employer] Toprol with Coreg 6.25 BID for better BP control
has NOT resumed [employer] Cardizem (HR has been controlled)
On therapeutic Lovenox instead of Eliquis in case he needs procedures
# CAD/PCI with stenting
# CABG 2016
# Hx NSVT August 29, 2023
Follows with [facility] cardiology
2D echo 08/11/2023: EF 55%, mild LVH, no wall abnormalities, severe biatrial enlargement no valvular disease
Resumed atorvastatin
# HLD
atorvastatin
# Former smoker stopped July 2023
Former 1 pack a day x 30 years
# Former alcohol abuse stopped July 2023
Former 4 beers daily 4 days a week
# Chronic ambulatory dysfunction
PT/OT/case management consult
# History of postop delirium August 2023 admission resolved on discharge
# Insomnia
Resumed p.o. trazodone
DVT prophylaxis- SQ Lovenox 100 mg daily (1.5 Mg/KG), hold Eliquis in case he needs procedures
DNR per patient
d/w on the phone. Explained to her at great length about current active problem which is his chronic dysphagia
DW RN
total time spent 51 min
Anticipated Discharge: 24 - 48 hours
Subjective/Interval History
-
Date of Service: September 23, 2023
Objective Data
-
Labs:
Laboratory Results
09/23/23
05:28
WBC 8.6
Hgb 8.2 L
Hct 25.1 L
Plt Count 355
Sodium 134 L
Potassium 4.0
Chloride 108 H
Carbon Dioxide 24
BUN 11
Creatinine 1.3
Glucose 99
Calcium 8.4
Vital Signs:
Vital Signs
Temp Pulse Resp BP Pulse Ox
36.4 C 75 18 171/83 97
09/23/23 09:13 09/23/23 09:13 09/23/23 09:13 09/23/23 09:13 09/23/23 09:13
I&O
09/22/23 09/23/23 09/24/23
06:59 06:59 06:59
Intake Total 1780 / 1780 1190 / 1190
Output Total 600 / 600 1500 / 1500
Balance 1180 / 1180 -310 / -310
Review of Systems
-
All other systems: Reviewed and negative
Physical Exam
-
General: Well Developed, No Apparent Distress, Comfortable and Appears Chronically Ill
HEENT: Normocephalic and Atraumatic
Respiratory: Clear to Auscultation and Non Labored Respirations; Negative Wheezes or Accessory Resp Muscle Use
Cardiac: Regular Rhythm and S1/S2
GI: Soft, Nontender and Ostomy
Neuro: Awake and Alert
Psych: Calm and Intact Judgement/Insight
Data Reviewed
-
Labs: Labs Reviewed by me
--- NOTE | 2023-09-23 13:57 | CM ---
CM following for d/c planning
Cont IV antibiotics
Accepted by [facility] for Home care needs
Family prefers to take pt home, pt and declining snf
Plan - anticipate home with HH
[2023-09-23] MEDS: LOVENOX 100 MG SC (17:07)
[2023-09-23] MEDS: LIPITOR 80 MG PO (17:07)
[2023-09-23] MEDS: COREG 6.25 MG PO (20:40)
[2023-09-23] MEDS: PEPCID 20 MG PO (20:40)
[2023-09-23] MEDS: MIRALAX 17 GRAMS PO (21:35)
[2023-09-23] MEDS: DESYREL 50 MG PO (21:35)
[2023-09-24] MEDS: ROXICODONE 5 MG PO (02:25)
[2023-09-24] MEDS: ZOSYN 50 IV ×4 (02:25→20:34)
[2023-09-24 03:15] VITALS: BP 152/80
[2023-09-24 04:43] VITALS: BMI 22.6
--- NOTE | 2023-09-24 04:53 | DOWNTIME ---
There was a [employer] Downtime on 09/24/2023 from 0100 to 09/24/2023 at 0439. Downtime documentation of patient's care, including medication administrations, has been reconciled in the electronic record per guidelines. Refer to the
patient's paper chart under the miscellaneous tab to see printed paper medication records and downtime forms.
[2023-09-24] MEDS: MORPHINE SULFATE 1 MG IV (05:51)
[2023-09-24 06:03] LABS: Hemoglobin 7.7 g/dL (13.0-18.0); Mean Corp Hgb Conc. 33.5 g/dL (33.0-37.0); Mean Corpuscular Hgb 30.2 pg (27.0-31.0); Mean Corpuscular Volume 90.2 fL (80.0-94.0); Mean Platelet Volume 9.6 fL (7.4-10.4); Platelet Count 370 10^3/uL (130-400); Red Blood Cell Count 2.55 10^6/uL (4.70-6.10); Red Cell Dist. Width 16.6 % (11.5-14.5); White Blood Cell Count 9.3 10^3/uL (4.8-10.8)
[2023-09-24 07:54] VITALS: BP 145/83
[2023-09-24] MEDS: NSS (PRESERVATIVE FREE) 10 ML IV (08:14)
[2023-09-24] MEDS: PROTONIX IV 40 MG IV (08:14)
[2023-09-24] MEDS: PACERONE 400 MG PO (08:15)
[2023-09-24] MEDS: THERAGRAN 1 TABLET PO (08:15)
[2023-09-24] MEDS: VITAMIN D3 (cholecalciferol) 50 MCG PO (08:15)
[2023-09-24] MEDS: ZINC SULFATE 220 MG PO (08:15)
[2023-09-24] MEDS: B COMPLEX w/VITAMIN C 1 CAPLET PO (08:15)
[2023-09-24] MEDS: FOLVITE 0.400000000000000022 MG PO (08:15)
[2023-09-24] MEDS: COREG 6.25 MG PO ×2 (08:15→20:34)
[2023-09-24] MEDS: VITAMIN B1 100 MG PO (08:16)
[2023-09-24 08:46] LABS: Blood Urea Nitrogen 9 mg/dl (9-20); Calcium 8.6 mg/dl (8.4-10.2); Carbon Dioxide 25 mmol/L (22-30); Chloride 104 mmol/L (98-107); Estimated Creatinine Clearance 47 ml/min; Glucose 75 mg/dl (70-99); Magnesium 1.8 mg/dl (1.6-2.3); Phosphorus 3.1 mg/dl (2.5-4.5); Potassium 3.8 mmol/L (3.5-5.1); Sodium 131 mmol/L (135-145); eGFR 55.88
--- NOTE | 2023-09-24 08:50 | W.PN.CRS1 ---
Today's Communication / Plan
-
no plans for OR
advance diet as tolerated
Assessment/Plan
-
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
1. WBC normalized - 9.3. Vitals normal.
2. Okay for regular diet with Ensure from our perspective when able to eat. For now, per PRESS SETUP OPERATOR, he is on fulls and cannot advance due to aspiration risk.
3. OOB as tolerated.
4. Wound RN for stoma care.
5. No surgery at this time, stoma is functioning and patient does not want any further surgeries.
6. Eliquis currently on hold. No plans for surgery from our perspective.
7. He is feeling down and asking for something to help, I have notified hospitalist.
Subjective Data
Subjective Data
Date of Service: September 24, 2023
Patient states he feels 'down' because he is still in the hospital. He has no abdominal pain.
Objective Data
-
Vital Signs
Temp Pulse Resp BP Pulse Ox
97.6 F 68 17 145/83 98
09/24/23 07:54 09/24/23 08:15 09/24/23 07:54 09/24/23 08:15 09/24/23 07:54
Intake & Output
09/23/23 09/24/23 09/25/23
06:59 06:59 06:59
Intake Total 1190 / 1190 550 / 550
Output Total 1500 / 1500 815 / 815
Balance -310 / -310 -265 / -265
Intake:
Oral fluids 840 / 840 450 / 450
IV piggybacks 100 / 100 100 / 100
Blood Product Amount Infused ( 250 / 250
mL)
Packed Rbc Leukoreduced Unit 250 / 250
[id number]
Output:
Liquid stool amount 50 / 50 300 / 300
Colostomy 50 / 50 300 / 300
Urine, Voided 1450 / 1450 515 / 515
Lab Results
09/24/23 05:48
09/24/23 07:18
Physical Exam
-
General: No Acute Distress and AOx3
Abdomen: Soft, Non Distended, Non Tender and Other (ileostomy covered in stool, functioning and warm)
[2023-09-24 11:17] VITALS: BP 154/79
--- NOTE | 2023-09-24 12:26 | W.PN.HOSP.TC ---
Addendum entered and electronically signed by Le Beltrán MD 09/24/23 13:24:
d/w in person and in front of pt. After lengthy discussion, pt OK to downgrade diet to pureed (he continues to refuse full liquid). Pt and family understands the risk of aspiration even on pureed diet. They accept the risk.
Pt was refusing to work with PT earlier. does not feel pt is strong enough to return home. After discussion, pt now agreeable to work with PT.
total time spent 51 min
Original Note:
Today's Communication/Plan
-
see A/P
Assessment / Plan
Assessment / Plan
A/P:
# Cellulitis surrounding ostomy site, much improved
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 Padilla
resolved leucocytosis
Colorectal surgery consulted, per note, pt is not interested in any further surgery with regard to the ostomy. No additional input
Continue IV Zosyn for now
wound care on board
# Concern for dysphagia
# Aspiration pneumonia left basilar on current CXR
# Hx of refusal of Dobbhoff/PEG tube recent admission 09/02/2023
s/p VSE, recc full liquid for the lowest risk of aspiration. Pt refused Full liquid diet, he demands regular diet.
Pt states that he understands the risk of aspiration and potential if he is on a regular diet, and he accepts the risks.
Diet has been liberalized to regular per pt request.
Discussed the option of PEG with pt, he again refused.
Continue IV Zosyn for aspiration pneumonia
# Ruled out cholecystitis (was noted on CT)
No evidence of cystic duct obstruction on HIDA.
No plans for cholecystectomy at this time.
appreciate GS input
# Acute on chronic macrocytic anemia
Monitor hemoglobin
Transfused 1 unit PRBC 09/21,
Hgb today at 7.7
iron panel, B12, folate levels reviewed
# PAD/AAA/iliac disease
08/05/23: Bilateral femoral artery cutdown, endarterectomy with bovine patch angioplasty, retrograde balloon angioplasty, IV lithotripsy, and stenting of left iliac artery, endovascular aneurysm repair using physician modified aortic endograph
Complicated hospital course with 30-day stay in the hospital
# CKD 3B
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
Vascular aware on 08/13 regarding findings
Creat 1.3 today, at baseline
Would renally dose medications, no nephrotoxic drugs or NSAIDs
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
# Chronic memory impairment x1 year undiagnosed
# Permanent A-fib
# HTN�benign
Substitute SALES PLANNER Toprol with Coreg 6.25 BID for better BP control
has NOT resumed SALES PLANNER Cardizem (HR has been controlled)
Can resume SALES PLANNER Eliquis since no surgical procedure planned
# CAD/PCI with stenting
# CABG 2016
# Hx NSVT August 29, 2023
Follows with [facility] cardiology
2D echo 08/11/2023: EF 55%, mild LVH, no wall abnormalities, severe biatrial enlargement no valvular disease
Resumed atorvastatin
# HLD
atorvastatin
# Former smoker stopped July 2023
Former 1 pack a day x 30 years
# Former alcohol abuse stopped July 2023
Former 4 beers daily 4 days a week
# Chronic ambulatory dysfunction
PT/OT/case management consult
# History of postop delirium August 2023 admission resolved on discharge
# Insomnia
Resumed p.o. trazodone
DVT prophylaxis- SQ Lovenox 100 mg daily (1.5 Mg/KG), hold Eliquis in case he needs procedures
DNR per patient
d/w on the phone. She will discuss pt's diet with him and get back to me.
DW RN , SPL
total time spent 51 min
Anticipated Discharge: 24 - 48 hours
Subjective/Interval History
-
Date of Service: September 24, 2023
Objective Data
-
Labs:
Laboratory Results
09/24/23 09/24/23
05:48 07:18
WBC 9.3
Hgb 7.7 L
Hct 23.0 L
Plt Count 370
Sodium Cancelled 131 L
Potassium Cancelled 3.8
Chloride Cancelled 104
Carbon Dioxide Cancelled 25
BUN Cancelled 9
Creatinine Cancelled 1.3
Glucose Cancelled 75
Calcium Cancelled 8.6
Vital Signs:
Vital Signs
Temp Pulse Resp BP Pulse Ox
36.3 C 69 17 154/79 99
09/24/23 11:17 09/24/23 11:17 09/24/23 11:17 09/24/23 11:17 09/24/23 11:17
I&O
09/23/23 09/24/23 09/25/23
06:59 06:59 06:59
Intake Total 1190 / 1190 550 / 550
Output Total 1500 / 1500 815 / 815
Balance -310 / -310 -265 / -265
Review of Systems
-
All other systems: Reviewed and negative
Physical Exam
-
General: Well Developed, No Apparent Distress, Comfortable and Appears Chronically Ill
HEENT: Normocephalic and Atraumatic
Respiratory: Clear to Auscultation and Non Labored Respirations; Negative Wheezes or Accessory Resp Muscle Use
Cardiac: Regular Rhythm and S1/S2
GI: Soft, Nontender and Ostomy
Neuro: Awake and Alert
Psych: Calm and Intact Judgement/Insight (somewhat)
Data Reviewed
-
Labs: Labs Reviewed by me
[2023-09-24 14:52] VITALS: BP 101/70; BP 113/72; BP 121/77; PULSE 78; O2SAT 97
--- NOTE | 2023-09-24 15:31 | PTCARENOTE ---
pt OOB to chair. working with Pt. at bedside.
[2023-09-24 15:47] VITALS: BP 119/67
[2023-09-24] MEDS: LIPITOR 80 MG PO (18:25)
[2023-09-24] MEDS: ELIQUIS 5 MG PO (20:34)
[2023-09-24] MEDS: PEPCID 20 MG PO (20:35)
[2023-09-24] MEDS: DESYREL 50 MG PO (21:55)
[2023-09-24] MEDS: MIRALAX 17 GRAMS PO (21:55)
[2023-09-24 23:10] VITALS: BP 145/68
[2023-09-25] MEDS: ZOSYN 50 IV ×4 (02:11→20:16)
[2023-09-25] MEDS: ROXICODONE 5 MG PO ×2 (02:16→20:43)
[2023-09-25] MEDS: ROXICODONE 2.5 MG PO (05:47)
[2023-09-25 05:52] LABS: Hematocrit 26.7 % (39.0-52.0); Hemoglobin 8.8 g/dL (13.0-18.0); Mean Corpuscular Hgb 29.9 pg (27.0-31.0); Mean Corpuscular Volume 90.8 fL (80.0-94.0); Mean Platelet Volume 9.4 fL (7.4-10.4); Platelet Count 341 10^3/uL (130-400); Red Blood Cell Count 2.94 10^6/uL (4.70-6.10); Red Cell Dist. Width 16.4 % (11.5-14.5)
[2023-09-25 06:00] VITALS: BMI 22.3
[2023-09-25 06:23] LABS: Blood Urea Nitrogen 10 mg/dl (9-20); Calcium 8.6 mg/dl (8.4-10.2); Carbon Dioxide 26 mmol/L (22-30); Chloride 102 mmol/L (98-107); Estimated Creatinine Clearance 46 ml/min; Glucose 90 mg/dl (70-99); Potassium 3.7 mmol/L (3.5-5.1); Sodium 131 mmol/L (135-145); eGFR 55.88
[2023-09-25 07:27] VITALS: BP 133/104
[2023-09-25] MEDS: ZINC SULFATE 220 MG PO (09:55)
[2023-09-25] MEDS: PROTONIX 40 MG PO (09:55)
[2023-09-25] MEDS: FOLVITE 0.400000000000000022 MG PO (09:56)
[2023-09-25] MEDS: B COMPLEX w/VITAMIN C 1 CAPLET PO (09:56)
[2023-09-25] MEDS: PACERONE 400 MG PO (09:56)
[2023-09-25] MEDS: ELIQUIS 5 MG PO ×2 (09:56→20:17)
[2023-09-25] MEDS: COREG 6.25 MG PO ×2 (09:56→20:17)
[2023-09-25] MEDS: THERAGRAN 1 TABLET PO (09:56)
[2023-09-25] MEDS: VITAMIN B1 100 MG PO (09:56)
[2023-09-25] MEDS: VITAMIN D3 (cholecalciferol) 50 MCG PO (09:56)
--- NOTE | 2023-09-25 09:56 | PN.CDI ---
CDI
- -
CDI:
Physician Documentation Request
Admit Date: 09/20/23 14:15
Dear Doctor Jerel,
Clinical Indicators:
Patient admitted with cellulitis surrounding stoma site.
IVF: D5 NS w/20 KCl given.
Sodium levels:
09/23/23 09/24/23
05:28 07:18
Sodium 134 L 131 L
Based on the above, could you clarify in the progress notes, the appropriate diagnosis, if significant, that supports the above abnormalities and additional evaluation, monitoring and/or treatment rendered:
Hyponatremia
Abnormal lab values, clinically insignificant
Other, please specify
Use of terms such as suspected, likely, concern for, or probable (associated with a specific diagnosis that is being evaluated, monitored, or treated as if it exists) are acceptable and can be coded in the inpatient setting, when documented at the
time of discharge.
Thank you,
GERMAIN Lopez RN
CDI Specialist
available via tiger text
Please use your independent medical judgment in providing your response.
--- NOTE | 2023-09-25 11:27 | W.PN.HOSP.TC ---
Today's Communication/Plan
-
see A/P
Assessment / Plan
Assessment / Plan
A/P:
# Cellulitis surrounding ostomy site, much improved
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 Padilla
resolved leucocytosis
Colorectal surgery consulted, per note, pt is not interested in any further surgery with regard to the ostomy. No additional input
Continue IV Zosyn for now
wound care on board
# Concern for dysphagia
# Aspiration pneumonia left basilar on current CXR
# Hx of refusal of Dobbhoff/PEG tube recent admission 09/02/2023
s/p VSE, SPL recc full liquid for the lowest risk of aspiration. Pt refused Full liquid diet.
After extensive discussion, he is willing to take the risk for pureed diet (still refused full liquid diet). So far tolerating OK.
Discussed the option of PEG with pt, he again refused.
Continue IV Zosyn for aspiration pneumonia
# Ruled out cholecystitis (was noted on CT)
No evidence of cystic duct obstruction on HIDA.
No plans for cholecystectomy at this time.
appreciate GS input
# Acute on chronic macrocytic anemia
Monitor hemoglobin
Transfused 1 unit PRBC 09/21,
Hgb today at 8.8
iron panel, B12, folate levels reviewed
# PAD/AAA/iliac disease
08/05/23: Bilateral femoral artery cutdown, endarterectomy with bovine patch angioplasty, retrograde balloon angioplasty, IV lithotripsy, and stenting of left iliac artery, endovascular aneurysm repair using physician modified aortic endograph
Complicated hospital course with 30-day stay in the hospital
# CKD 3B
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
Vascular aware on 08/13 regarding findings
Creat 1.3 today, at baseline
Would renally dose medications, no nephrotoxic drugs or NSAIDs
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
# Chronic memory impairment x1 year undiagnosed
# Permanent A-fib
# HTN�benign
Substitute MYCOLOGY TEACHER Toprol with Coreg 6.25 BID for better BP control
has NOT resumed MYCOLOGY TEACHER Cardizem (HR has been controlled)
Can resume MYCOLOGY TEACHER Eliquis since no surgical procedure planned
# CAD/PCI with stenting
# CABG 2016
# Hx NSVT August 29, 2023
Follows with [facility] cardiology
2D echo 08/11/2023: EF 55%, mild LVH, no wall abnormalities, severe biatrial enlargement no valvular disease
Resumed atorvastatin
# HLD
atorvastatin
# Former smoker stopped July 2023
Former 1 pack a day x 30 years
# Former alcohol abuse stopped July 2023
Former 4 beers daily 4 days a week
# Chronic ambulatory dysfunction
PT/OT/case management consult
# History of postop delirium August 2023 admission resolved on discharge
# Insomnia
Resumed p.o. trazodone
DVT prophylaxis- MYCOLOGY TEACHER Eliquis
DNR per patient
d/w on the phone.
Anticipated Discharge: Within 24 hours
Subjective/Interval History
-
Date of Service: September 25, 2023
Objective Data
-
Labs:
Laboratory Results
09/25/23
05:26
WBC 8.0
Hgb 8.8 L
Hct 26.7 L
Plt Count 341
Sodium 131 L
Potassium 3.7
Chloride 102
Carbon Dioxide 26
BUN 10
Creatinine 1.3
Glucose 90
Calcium 8.6
Vital Signs:
Vital Signs
Temp Pulse Resp BP Pulse Ox
36.4 C 66 16 133/104 99
09/25/23 07:27 09/25/23 07:27 09/25/23 07:27 09/25/23 07:27 09/25/23 07:27
I&O
09/24/23 09/25/23 09/26/23
06:59 06:59 06:59
Intake Total 550 / 550 220 / 220
Output Total 815 / 815 950 / 950
Balance -265 / -265 -730 / -730
Review of Systems
-
All other systems: Reviewed and negative
Physical Exam
-
General: Well Developed, No Apparent Distress, Comfortable and Appears Chronically Ill
HEENT: Normocephalic and Atraumatic
Respiratory: Clear to Auscultation and Non Labored Respirations; Negative Wheezes or Accessory Resp Muscle Use
Cardiac: Regular Rhythm and S1/S2
GI: Soft, Nontender and Ostomy
Neuro: Awake and Alert
Psych: Calm and Intact Judgement/Insight (somewhat)
Data Reviewed
-
Labs: Labs Reviewed by me
--- NOTE | 2023-09-25 14:24 | WOUNDNOTE ---
[facility] RN note: Patient's colostomy appliance changed using Yasmany wafer # [id number], Sena seal, Morven pouch #[id number]. Peristomal skin much improved. Stool thick liquid brown. Skin on heels and sacrum intact and blanchable mild red. Patient is on a
Waffle air overlay and has an air chair cushion. Heels off bed with air chair cushion. VN planned when discharged. t/c Spoke with patient's prior to visit who stated she cannot come in for ostomy teaching. Patient observed appliance change.
[2023-09-25 14:44] VITALS: BMI 22.3
[2023-09-25 16:05] VITALS: BP 133/80
--- NOTE | 2023-09-25 17:00 | WOUNDNOTE ---
[facility] RN note: Ostomy supplies left in patient's room (Yasmany wafer # [id number], Sena seals, Yasmany pouch # [id number], [place] ostomy belt).
[2023-09-25] MEDS: LIPITOR 80 MG PO (18:22)
[2023-09-25] MEDS: DESYREL 50 MG PO (20:16)
[2023-09-25] MEDS: PEPCID 20 MG PO (20:18)
[2023-09-25] MEDS: MIRALAX 17 GRAMS PO (20:19)
[2023-09-25 23:31] VITALS: BP 145/82
[2023-09-26] MEDS: ZOSYN 50 IV ×2 (02:01→08:07)
[2023-09-26] MEDS: ROXICODONE 2.5 MG PO (02:41)
[2023-09-26] MEDS: ROXICODONE 5 MG PO (03:21)
[2023-09-26 05:23] LABS: Hematocrit 28.6 % (39.0-52.0); Hemoglobin 9.6 g/dL (13.0-18.0); Mean Corp Hgb Conc. 33.6 g/dL (33.0-37.0); Mean Corpuscular Hgb 30.3 pg (27.0-31.0); Mean Corpuscular Volume 90.2 fL (80.0-94.0); Mean Platelet Volume 9.3 fL (7.4-10.4); Platelet Count 325 10^3/uL (130-400); Red Blood Cell Count 3.17 10^6/uL (4.70-6.10); Red Cell Dist. Width 16.2 % (11.5-14.5); White Blood Cell Count 7.9 10^3/uL (4.8-10.8)
[2023-09-26 05:48] LABS: Blood Urea Nitrogen 13 mg/dl (9-20); Calcium 8.8 mg/dl (8.4-10.2); Carbon Dioxide 28 mmol/L (22-30); Chloride 102 mmol/L (98-107); Estimated Creatinine Clearance 43 ml/min; Glucose 95 mg/dl (70-99); Potassium 3.7 mmol/L (3.5-5.1); Sodium 133 mmol/L (135-145); eGFR 51.13
[2023-09-26 06:00] VITALS: BMI 21.8
[2023-09-26 07:49] VITALS: BP 157/90
[2023-09-26] MEDS: VITAMIN B1 100 MG PO (08:08)
[2023-09-26] MEDS: PACERONE 400 MG PO (08:08)
[2023-09-26] MEDS: VITAMIN D3 (cholecalciferol) 50 MCG PO (08:08)
[2023-09-26] MEDS: COREG 6.25 MG PO (08:08)
[2023-09-26] MEDS: ZINC SULFATE 220 MG PO (08:08)
[2023-09-26] MEDS: PROTONIX 40 MG PO (08:08)
[2023-09-26] MEDS: B COMPLEX w/VITAMIN C 1 CAPLET PO (08:08)
[2023-09-26] MEDS: THERAGRAN 1 TABLET PO (08:09)
[2023-09-26] MEDS: ELIQUIS 5 MG PO (08:09)
[2023-09-26] MEDS: FOLVITE 0.400000000000000022 MG PO (09:30)
--- NOTE | 2023-09-26 11:51 | W.PN.HOSP.TC ---
Addendum entered and electronically signed by Le Beltrán MD 09/26/23 15:44:
# Hyponatremia
total DC time 35 min
Original Note:
Today's Communication/Plan
-
see A/P
Assessment / Plan
Assessment / Plan
A/P:
# Cellulitis surrounding ostomy site, resolved
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 Padilla
resolved leucocytosis
Colorectal surgery consulted, per note, pt is not interested in any further surgery with regard to the ostomy. No additional input
s/p IV Zosyn x7 days, can DC further
wound care on board
# Concern for dysphagia
# Aspiration pneumonia left basilar on current CXR
# Hx of refusal of Dobbhoff/PEG tube recent admission 09/02/2023
s/p VSE, SPL recc full liquid for the lowest risk of aspiration. Pt refused Full liquid diet.
After extensive discussion, he is willing to take the risk for pureed diet (still refused full liquid diet). So far tolerating OK.
Discussed the option of PEG with pt, he again refused.
Pt has received adequate treatment with IV Zosyn for aspiration pneumonia (7 days)
# Ruled out cholecystitis (was noted on CT)
No evidence of cystic duct obstruction on HIDA.
No plans for cholecystectomy at this time.
appreciate GS input
# Acute on chronic macrocytic anemia
Monitor hemoglobin
Transfused 1 unit PRBC 09/21,
Hgb today at 8.8
iron panel, B12, folate levels reviewed
# PAD/AAA/iliac disease
08/05/23: Bilateral femoral artery cutdown, endarterectomy with bovine patch angioplasty, retrograde balloon angioplasty, IV lithotripsy, and stenting of left iliac artery, endovascular aneurysm repair using physician modified aortic endograph
Complicated hospital course with 30-day stay in the hospital
# CKD 3B
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
Vascular aware on 08/13 regarding findings
Creat 1.4 today, at baseline
Would renally dose medications, no nephrotoxic drugs or NSAIDs
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
# Chronic memory impairment x1 year undiagnosed
# Permanent A-fib
# HTN�benign
Substitute HAM FACER Toprol with Coreg, increase to 12 mg for better BP control upon discharge
has NOT resumed HAM FACER Cardizem (HR has been controlled), can DC upon discharge
Resumed HAM FACER Eliquis since no surgical procedure planned
# CAD/PCI with stenting
# CABG 2016
# Hx NSVT August 29, 2023
Follows with [facility] cardiology
2D echo 08/11/2023: EF 55%, mild LVH, no wall abnormalities, severe biatrial enlargement no valvular disease
Resumed atorvastatin
# HLD
atorvastatin
# Former smoker stopped July 2023
Former 1 pack a day x 30 years
# Former alcohol abuse stopped July 2023
Former 4 beers daily 4 days a week
# Chronic ambulatory dysfunction
PT/OT/case management consult
# History of postop delirium August 2023 admission resolved on discharge
# Insomnia
Resumed p.o. trazodone
DVT prophylaxis- HAM FACER Eliquis
DNR per patient
d/w on the phone extensively
Anticipated Discharge: Today
Subjective/Interval History
-
Date of Service: September 26, 2023
Objective Data
-
Labs:
Laboratory Results
09/26/23
05:14
WBC 7.9
Hgb 9.6 L
Hct 28.6 L
Plt Count 325
Sodium 133 L
Potassium 3.7
Chloride 102
Carbon Dioxide 28
BUN 13
Creatinine 1.4 H
Glucose 95
Calcium 8.8
Vital Signs:
Vital Signs
Temp Pulse Resp BP Pulse Ox
36.8 C 72 18 157/90 100
09/26/23 07:49 09/26/23 07:49 09/26/23 07:49 09/26/23 07:49 09/26/23 07:49
I&O
09/25/23 09/26/23 09/27/23
06:59 06:59 06:59
Intake Total 220 / 220 1060 / 1060
Output Total 950 / 950 900 / 900
Balance -730 / -730 160 / 160
Review of Systems
-
All other systems: Reviewed and negative
Physical Exam
-
General: Well Developed, No Apparent Distress, Comfortable and Appears Chronically Ill
HEENT: Normocephalic and Atraumatic
Respiratory: Clear to Auscultation and Non Labored Respirations; Negative Wheezes or Accessory Resp Muscle Use
Cardiac: Regular Rhythm and S1/S2
GI: Soft, Nontender and Ostomy (ostomy appears stable )
Neuro: Awake and Alert
Psych: Calm and Intact Judgement/Insight (somewhat)
Data Reviewed
-
Labs: Labs Reviewed by me
[2023-09-26 12:00] VITALS: BP 125/64; PULSE 64
[2023-09-26 12:55] VITALS: BP 127/78
--- NOTE | 2023-09-26 13:50 | CM ---
Patient seen bedside.
Per patient his spouse will be doing colostomy care.
Nursing will instruct spouse on colostomy care today prior to d/c.
[facility] to f/u Friday.
Per wound care nurses note ostomy supplies in patient room.
IMM completed.
Plan: home with [facility]
Spouse will transport home.
[facility]
fax# [phone]
--- NOTE | 2023-09-26 16:16 | W.DCSUMMARY ---
Discharge Summary
Discharge Data
Date of Admission: 09/20/23
Date of Discharge: 09/26/23
-
Pending Results: No
Hospital Course
Principal Diagnosis:
Cellulitis surrounding the ostomy site.
Chronic dysphagia with aspiration pneumonia at left base.
Acute on chronic macrocytic anemia.
Chronic Diagnoses:�
Peripheral artery disease/abdominal aortic aneurysm/iliac disease status post bilateral femoral artery endarterectomy with angioplasty, stenting of left iliac artery, endovascular aneurysm repair
Ischemic colitis status post aortic endograft with subsequent left colectomy creation on 08/06/23
Chronic kidney disease stage IIIb
Left kidney infarction
History of stroke November 2021
Chronic memory impairment x1 year undiagnosed
Permanent atrial fibrillation
Essential hypertension
Coronary artery disease with cardiac stent
Bypass surgery 2016
Hyperlipidemia
Chronic ambulatory dysfunction
Consultations:�
Cardiology
Colorectal surgery
General surgery
Procedures:�
None
Clinical course:�
This is a 78-year-old male, with past medical history as stated above, who presented with pain and erythema around his ostomy stoma site.
Problem 1:
Cellulitis surrounding the ostomy site.
This resolved with IV antibiotic Zosyn which the patient has received during his hospital stay. He received IV Zosyn for 7 days while in the hospital, no further antibiotic was continued.
Colorectal surgery was consulted, and since the patient is not interested in any further surgery with regard to the ostomy, no additional input was recommended.
Problem 2:
Chronic dysphagia with aspiration pneumonia at left base.
He was seen by speech therapist and had video swallow for his chronic dysphagia evaluation, and per speech therapist, it was recommended that the patient to continue with full liquid diet for the lowest risk of aspiration.
Unfortunately, he refused liquid diet, and following extensive discussion, patient is willing to take the risk of restarting diet, he accepted pur�ed diet.
PEG option was discussed with the patient, which he refused (similar to before).
He received adequate treatment with IV Zosyn for his aspiration pneumonia (7 days)
Problem 3:
Acute on chronic macrocytic anemia.
At one point, his hemoglobin was at 7.0, and he received 1 unit PRBC transfusion for this.
On the day of discharge, his hemoglobin was at 9.6.
Problem 4:
HTN.
His ANCHOR TACKER Toprol was changed to Coreg for better BP control.
He was discharged with Coreg 12.5 mg twice daily.
Of note, his prior to admission Cardizem has not been resumed during this admission, and given that his heart rate has been well-controlled, Cardizem was discontinued.
He can continue with prior to admission Eliquis.
As for the rest of his medical problems, they were stable during his hospital stay.
Discharge Plan
-
Patient Disposition: Home with Home Care
Discharge Diagnosis/Procedures: Cellulitis surrounding ostomy site (resolved); Dysphagia with Aspiration pneumonia; Permanent Atrial fibrillation
Condition: Fair
Diet: As tolerated and Other diet
Additional Diets: pureed diet with supervision/precaution
Activity: As tolerated
Driving Restrictions: No driving
Wound Care: Colostomy-clean and dry skin, stoma powder prn denuded skin and miconazole powder prn yeasty red skin followed by no sting barrier wipe, apply Yasmany wafer # [id number], Sena seal and Yasmany pouch # [id number]. Add ostomy belt if needed.
Change appliance 2 times a week and as needed for leakage.
Call supply [employer] (list in folder provided) for monthly Ostomy supplies after discharge (ask VN to order supplies while on service).
Follow up with surgeon.
Call [facility] RN nurse for ostomy pouching concerns or leakage problems [phone] or [phone] or [phone].
Referrals:
Mario Pedro MD [Family Provider] - in less than 1 week
Additional Discharge Medication Instructions: Take Coreg 12.[address] of Metoprolol[address]
Do NOT take both.
Stop Diltiazem.
Prescriptions:
New
carvedilol 12.5 mg Tablet
12.5 mg PO BID Qty: 60 0RF
Continued
Eliquis 5 MG tablet
5 mg PO BID Qty: 0 0RF
folic acid 400 mcg Tablet
0.4 mg PO DAILY
oxycodone 5 mg Tablet
2.5 mg PO Q4HPRN PRN (Reason: mild pain) Qty: 10 0RF
oxycodone 5 mg Tablet
5 mg PO Q4HPRN PRN (Reason: moderate pain) Qty: 10 0RF
amiodarone 400 mg tablet
400 mg PO DAILY Qty: 60 0RF
multivitamin Tablet
1 tab PO DAILY
atorvastatin 80 mg Tablet
80 mg PO QPM
Patient Comments:
09/20/2023, therapeutic interchange for Rosuvastatin per [place] paperwork.
trazodone 50 mg Tablet
50 mg PO HS
thiamine HCl (vitamin B1) 100 mg Tablet
100 mg PO DAILY
famotidine 20 mg Tablet
20 mg PO BID
vitamin B complex Tablet
1 tab PO DAILY
zinc sulfate 220 mg Capsule
220 mg PO DAILY
cholecalciferol (vitamin D3) 50 mcg (2,000 unit) Tablet
50 mcg PO DAILY
ipratropium-albuterol 0.5 mg-3 mg(2.5 mg base)/3 mL solution for nebulization
3 ml inhalation R Q4HPRN PRN (Reason: sob/wheezing)
Discontinued
metoprolol succinate 100 mg Tablet Extended Release 24 Hr
100 mg PO DAILY Qty: 60 0RF
diltiazem HCl 120 mg Capsule,Extended Release 12 Hr
120 mg PO DAILY
Discharge Orders:
Discharge Patient (As Directed); Ordered 09/26/23
Ordered By: Le Beltrán
Discharge Date and Time
Print Language: UPPER SORBIAN
[2023-09-26 16:59] VITALS: BP 141/75
== END 2023-09-26 18:23 | disposition home health service (06) | DRG 602 ==
LOC: 3 WEST ACU 14:15
PROVIDERS: Clinical Nurse Specialist Family Health; Physician Assistant Medical; ADMITTING PHYSICIAN Family Medicine; ATTENDING PHYSICIAN Internal Medicine; CONSULT PHYSICIAN Surgery; EMERGENCY PHYSICIAN Emergency Medicine; FAMILY PHYSICIAN Family Medicine
PROC: 30233N1 Transfusion of Nonautologous Red Blood Cells into Peripheral Vein, Percutaneous Approach (ICD-10-PCS; 2023-09-22)
DX: L03.90 Cellulitis, unspecified (principal); J69.0 Pneumonitis due to inhalation of food and vomit; I48.21 Permanent atrial fibrillation; E87.1 Hypo-osmolality and hyponatremia; N28.0 Ischemia and infarction of kidney; Z79.01 Long term (current) use of anticoagulants; I73.9 Peripheral vascular disease, unspecified; I71.40 Abdominal aortic aneurysm, without rupture, unspecified; D53.9 Nutritional anemia, unspecified; F17.210 Nicotine dependence, cigarettes, uncomplicated; E78.00 Pure hypercholesterolemia, unspecified; G47.00 Insomnia, unspecified; Z66 Do not resuscitate; I12.9 Hypertensive chronic kidney disease with stage 1 through stage 4 chronic kidney disease, or unspecified chronic kidney disease; N18.32 Chronic kidney disease, stage 3b
CPT/HCPCS: 71045; 74177; 74230; 78226; 80048; 80053; 82607; 82728; 82746; 83540; 83550; 83735; 84100; 85025; 85027; 85610; 85730; 86850; 86900; 86901; 86920; 92610; 92611; 96365; 96366; 96367; 96375; 97116; 97163; 97167; 97530; 97535; 99285; 99406; A9537; P9016; Q9967

== ENCOUNTER → 2023-10-06 14:09 | Outpatient (REF) | payer OTHER, SELFPAY | LOC: RCS 14:09 | PROVIDERS: ATTENDING PHYSICIAN Registered Nurse; FAMILY PHYSICIAN Family Medicine | DX: I70.203 Unspecified atherosclerosis of native arteries of extremities, bilateral legs (principal); I71.42 Juxtarenal abdominal aortic aneurysm, without rupture; K55.032 Diffuse acute (reversible) ischemia of large intestine; Z09 Encounter for follow-up examination after completed treatment for conditions other than malignant neoplasm | CPT/HCPCS: 93005 ==

== ENCOUNTER → 2024-04-08 15:20 | Outpatient (REF) | payer OTHER, SELFPAY ==
[2024-04-08 17:47] LABS: Blood Urea Nitrogen 20 mg/dl (9-20); Calcium 9.3 mg/dl (8.4-10.2); Carbon Dioxide 26 mmol/L (22-30); Chloride 103 mmol/L (98-107); Glucose 141 mg/dl (70-99); Potassium 4.7 mmol/L (3.5-5.1); Sodium 142 mmol/L (135-145); eGFR 37.58
== END ==
LOC: REG 15:20
PROVIDERS: ATTENDING PHYSICIAN Registered Nurse; FAMILY PHYSICIAN Family Medicine
DX: I70.203 Unspecified atherosclerosis of native arteries of extremities, bilateral legs (principal); I71.42 Juxtarenal abdominal aortic aneurysm, without rupture
CPT/HCPCS: 36415; 80048

== ENCOUNTER 2024-04-15 21:01 | Inpatient (IN) | payer OTHER, SELFPAY ==
[2024-04-15] VITALS (12 sets, daily range): BP systolic 90–140; BP diastolic 53–74; BMI 22.8
[2024-04-15] MEDS: NSS 1000 IV ×2 (18:18→22:46)
[2024-04-15 18:24] LABS: ALT (SGPT) 388 U/L (0-50); AST (SGOT) 866 U/L (17-59); Albumin 3.1 g/dl (3.5-5.0); Alkaline Phosphatase 600 U/L (38-126); Blood Urea Nitrogen 19 mg/dl (9-20); Calcium 8.7 mg/dl (8.4-10.2); Carbon Dioxide 10 mmol/L (22-30); Chloride 101 mmol/L (98-107); Estimated Creatinine Clearance 32 ml/min; Glucose 137 mg/dl (70-99); Lactic Acid 13.2 mmol/L (0.7-2.0); Potassium 4.2 mmol/L (3.5-5.1); Sodium 137 mmol/L (135-145); Total Bilirubin 2.8 mg/dl (0.2-1.3); Total Protein 6.1 g/dl (6.3-8.2); eGFR 35.22
[2024-04-15 18:30] LABS: COVID-19 Antigen Negative (Negative)
[2024-04-15 18:35] LABS: Hematocrit 26.2 % (39.0-52.0); Hemoglobin 8.7 g/dL (13.0-18.0); Mean Corp Hgb Conc. 33.2 g/dL (33.0-37.0); Mean Corpuscular Hgb 28.6 pg (27.0-31.0); Mean Corpuscular Volume 86.2 fL (80.0-94.0); Mean Platelet Volume 10.7 fL (7.4-10.4); Platelet Count 272 10^3/uL (130-400); Red Blood Cell Count 3.04 10^6/uL (4.70-6.10); Red Cell Dist. Width 18.3 % (11.5-14.5); White Blood Cell Count 34.3 10^3/uL (4.8-10.8)
[2024-04-15] MEDS: NSS 1200 ML IV (18:45)
--- NOTE | 2024-04-15 18:52 | PHANOTE ---
Med Rec Note:
Pt did not know his medications, pt stated to call his . Called , and she did not answer. Compiled home med list from Dr Mcnally and MANDEEPW.
[2024-04-15 19:00] LABS: Segmented Neutrophils 79 % (42-75)
[2024-04-15 19:01] LABS: Absolute Neutrophils -Man Diff 31.2 10^3/uL (1.4-6.5); Band Neutrophils 12 % (0-3); Lymphocytes 1 % (20-51); Metamyelocytes 3 % (-); Monocytes 3 % (2-9); Myelocytes 2 % (-); Normal RBC Morphology Yes; Platelets Checked Yes; Total Cells Counted 100
[2024-04-15 19:02] LABS: PT 21.4 Sec (11.4-14.6)
[2024-04-15] MEDS: ZOSYN 50 IV (19:03)
--- NOTE | 2024-04-15 19:18 | ED.GENMED ---
History of Present Illness
General
Chief Complaint: Weakness
Source: patient, records, family and ambulance crew
Time Seen by Provider: 04/15/24 18:25
History of Present Illness
History of Present Illness:
79-year-old male with past medical history of ALS, previous CVA, atrial fibrillation, peripheral arterial disease, CAD, previous OR, previous alcohol abuse presenting to the emergency department for evaluation from home after they were getting ready
to go out for a constitution party and patient fell to the ground on his knees while attempting to use his walker noting that he has been having gradually worsening pain to his lower legs, weakness, diminished p.o. intake to both solids and liquids and generally
feeling unwell over the last 3 days. Patient's history is somewhat limited as he states he has some memory issues. Family currently not present in the ER. Patient is unaware of any fevers but does state the last 3 days he has been experiencing
significant chills and intermittent rigors. He denies any chest pain, abdominal pain, nausea or vomiting, urinary symptoms. Patient does have a colostomy and states he is having his usual output. EMS notes that patient was hypotensive on their
arrival and treated him with approximately 600 mL of normal saline IV fluid.
Past History
Past History
ED Past Medical History: CAD, Cancer (Nasal skin cancer), CVA, HTN, Hypercholesterolemia, OR, Psychiatric (Anxiety), Other (Peripheral vascular disease) and Other (Polymyalgia rheumatica)
ED Past Surgical History: Cardiac (PTCA 1993, 1994. Cardiac catheter 2004 revealing patent stents with no intervention. Cardiac catheter March 2012 showing nonocclusive, noncritical calcific coronary artery disease. EF of 48%.), Orthopedic (Carpal
tunnel release) and Other (Mohs surgery, nasal bridge skin cancer)
Social History
Tobacco: Smoker
Alcohol: Daily
Drug: None
Personal:
Living: with family
Employment: Retired
Family History
Family History: Hypertension, CAD and Cancer
Review of Systems
Review of Systems
All Other Systems: ROS reviewed and negative except as documented in HPI and ROS
Phy Exam
Physical Exam
Physical Exam:
GENERAL: Alert , appears older than stated age, sickly
HEAD: NCAT
EYE: clear conjunctiva
NECK: Supple
ENT: o/p clr, mmm.
CARDIAC: Regular rate and rhythm .
LUNGS: Clear breath sounds bilaterally, no acute respiratory distress, no wheezes/rales/rhonchi
ABDOMEN: Soft, without focal tenderness, no r/g, no cvat, ostomy to the left upper/mid abdomen
NEUROLOGICAL: Alert and oriented x 3
SKIN: Warm and dry, skin intact.
MUSCULOSKELETAL: No edema, well perfused.
PSYCH: Normal and appropriate interaction.
Scores
Heart Failure Risk
Heart Failure Risk Score: Not Applicable
Heart Score for Chest Pain Patients
STEMI patient?: Not applicable
Withdrawal Assessment of Alcohol
Withdrawal Assessment Completed?: Not applicable
Sepsis
Sepsis Screening
Sepsis Assessment: Septic Shock
Sepsis Screening: Lactate >/=4mmol/L, Hypotension and Bilirubin >2mg/dl
Sepsis Screen
Sepsis Screen: Septic Shock
Date: 04/15/24
Time: 19:50
Course
Orders/Labs/Results
Orders:
Orders
04/15/24 17:39
Electrocardiogram (*1) Urgent
Reason for Study: Other
Other Reason for Exam: Possible Sepsis
Cardiac Monitoring- Treatment ONCE
IV Insert/Care/Rem.- Treatment PRN
Urinalysis Reflex To Culture Urgent
Date Specimen was Collected: 04/15/24
Time Specimen was Collected: 17:40
O2 Therapy [RESP] Urgent
Titrate/Wean O2 to maintain O2 sat greater than (%): 93
Special Instructions: TO MAINTAIN CONTINUOUS O2 SATS > OR = 93%
Pulse Ox/cont/shift [RESP] Urgent
Quantity: 1
Special Instructions: CONTINUOUS
04/15/24 17:40
EKG- Treatment ONCE
04/15/24 17:44
Complete Blood Count/With Diff Urgent
Comprehensive Metabolic Panel Urgent
Lactic Acid Q4H
Comment: ON ICE, CANCEL 2ND ORDER IF FIRST LACTIC ACID LEVEL <2
Lipase Urgent
Comment: ADDON
Manual Differential Urgent
04/15/24 18:00
COVID-19 Antigen Urgent
Source: Nasal Swab
Influenza A+B Rapid Molecular Urgent
EUGENIA Source: Nasal Swab
Specimen Description:
04/15/24 18:16
0.9% Sodium Chloride 500 ml [Nss] 1,000 ml IV BOLUS
04/15/24 18:30
CT Abd/pelvis W Iv Cont Urgent
Comment:
Reason For Exam: sepsis, significantly elevated LFT
Straight cath- Treatment ONCE
0.9% Sodium Chloride 1000 ml [Nss] 1,200 ml IV NOW STA
Piperacillin/Tazo 3.375 Gram [Zosyn] 3.375 gram in 50 ml IV NOW
04/15/24 18:41
PTT Urgent
Prothrombin Time Urgent
04/15/24 18:42
Blood Culture Q30M
EUGENIA Source: Blood/Venous
Specimen Description:
Blood Culture Q30M
EUGENIA Source: Blood/Venous
Specimen Description:
04/15/24 19:01
Add On- LAB Urgent
Tests Added?: lipase
04/15/24 19:02
CR Chest Portable - 1 View Urgent
Comment:
Reason For Exam: sepsis
Reason Study Needs to be Portable: Patient Unstable
04/15/24 19:28
Vancomycin [Vancocin] 2,000 mg 0.9% Sodium Chloride 500 ml [Nss] 500 ml IV NOW
04/15/24 21:45
Lactic Acid Q4H
Comment: ON ICE, CANCEL 2ND ORDER IF FIRST LACTIC ACID LEVEL <2
Abnormal Lab Results
04/15/24 04/15/24
17:44 18:41
WBC 34.3 H 10^3/uL
(4.8-10.8)
RBC 3.04 L 10^6/uL
(4.70-6.10)
Hgb 8.7 L g/dL
(13.0-18.0)
Hct 26.2 L %
(39.0-52.0)
RDW 18.3 H %
(11.5-14.5)
MPV 10.7 H fL
(7.4-10.4)
Abs Neuts (Manual) 31.2 H 10^3/uL
(1.4-6.5)
Segmented Neutrophils 79 H %
(42-75)
Band Neutrophils 12 H %
(0-3)
Lymphocytes (Manual) 1 L %
(20-51)
PT 21.4 H Sec
(11.4-14.6)
APTT 38.0 H Sec
(23.4-35.0)
Carbon Dioxide 10 L* mmol/L
(22-30)
Creatinine 1.9 H mg/dL
(0.7-1.3)
Glucose 137 H mg/dl
(70-99)
Lactic Acid 13.2 H* mmol/L
(0.7-2.0)
Total Bilirubin 2.8 H mg/dl
(0.2-1.3)
AST 866 H* U/L
(17-59)
ALT 388 H U/L
(0-50)
Alkaline Phosphatase 600 H U/L
(38-126)
Total Protein 6.1 L g/dl
(6.3-8.2)
Albumin 3.1 L g/dl
(3.5-5.0)
04/15/24 17:44
04/15/24 17:44
Vital Signs
Initial and Last Documented VS:
Initial Vital Signs
Pulse Ox
99
04/15/24 17:32
Last Documented Vital Signs
Temp Pulse Resp BP Pulse Ox
97.8 F 69 24 101/56 100
04/15/24 18:00 04/15/24 19:15 04/15/24 19:15 04/15/24 19:15 04/15/24 19:15
Graphic User Interface Designer consulted with Physician
Graphic User Interface Designer consulted with physician?: Yes
Name of Physician Consulted: Wilfredo
MDM/Problems Addressed
Differential Diagnosis Includes:
Septic shock but with unclear etiology, urinary tract infection, pneumonia, intra-abdominal source, COVID/flu
MDM/Problems Addressed:
79-year-old male presenting to the ER hypotensive, chills and rigors for the last 3 days but is afebrile here. Sepsis workup was initiated by nursing staff on arrival. Patient had a significantly elevated lactic acid of 13, bicarb of 10 and
significantly elevated liver function test. Was immediately brought into the room and added on blood cultures, CT scan of the abdomen and pelvis, continued IV fluids to meet the 30 mg/kg sepsis fluid bundle, IV antibiotics and plan for admission.
CT was notified and brought patient to the ER immediately for imaging.
*Radiology
Radiology exam reviewed: radiology read reviewed
*Pulse Oximetry
Patient hypoxic: no
*Head Custodian Interpretation
Rate: normal
Rhythm: sinus
*Critical Care Note
Total Time (30-74mins, 75-104mins- exclusive of procedures): 30
comment:
Critical care statement: A total of 30 minutes of critical care time was provided for this patient. This includes management of unstable vital signs, evaluation of the patient at bedside, reviewing the patient's pertinent medical records, discussion
with consultants, review of old EKGs and review of pertinent medical records. This time with separate from time utilized to perform the aforementioned documented procedures
Data Reviewed
Review of Other/Old Records Reveals: Labs and Records
Source: patient
Patient Management
Discussion with other providers: Hospitalist and Catering Chef
Escalation/DeEscalation of care consider admission/obs:
Patient CT scan shows gallbladder stones and/or sludge with possible gallbladder wall thickening and possible pericholecystic fluid. There is atrophy of both kidneys. Possible pyelonephritis however patient without any urinary symptoms. Other
incidental findings noted. Given patient's significant LFT elevation I suspect cholecystitis/cholangitis/choledocholithiasis to be the most likely diagnosis. General surgery and hospitalist team were notified. Surgery team requesting MRI to be
completed. Hospitalist team is aware and accepts for continued evaluation and treatment.
ED Attending Note
-
Portions of this chart may have been created with voice recognition software.� Occasional wrong word or��sound alike� substitutions may have occurred due to the inherent limitations of voice recognition software.
Discharge Plan
Departure
Patient Disposition: Admit
Date of Disposition: 04/15/24
Time of Disposition: 19:19
Presentation/result/management discussed w/ accepting MD/DO: Hospitalist
Patient with high blood pressure during this ER visit?: No
Discharge Problem:
Septic shock, Acute cholangitis, NATALIE (acute kidney injury), Anemia
Prescriptions:
No Action
Eliquis 5 MG tablet
5 mg PO BID Qty: 0 0RF
amiodarone 400 mg tablet
400 mg PO DAILY Qty: 60 0RF
trazodone 50 mg Tablet
50 mg PO HSPRN PRN (Reason: sleep)
famotidine 20 mg Tablet
20 mg PO HSPRN PRN (Reason: gi issues)
vitamin B complex Tablet
1 tab PO DAILY
cholecalciferol (vitamin D3) 50 mcg (2,000 unit) Tablet
50 mcg PO DAILY
carvedilol 12.5 mg Tablet
12.5 mg PO BID Qty: 60 0RF
cetirizine 10 mg Tablet
10 mg PO DAILY
zinc sulfate 50 mg zinc (220 mg) Tablet
50 mg PO DAILY
ascorbic acid (vitamin C) [Vitamin C] 500 mg Tablet
500 mg PO TID
folic acid 1 mg Tablet
1 mg PO DAILY
lisinopril 5 mg Tablet
10 mg PO DAILY
rosuvastatin 40 mg tablet
40 mg PO QPM
Breztri Aerosphere 160-9-4.8 mcg/actuation HFA aerosol inhaler
2 inh INHALATION R BID
Referrals:
Tabitha Carney MD [Family Provider] -
Interventions
Interventions:
*Risk Screen - Suicide Last Done: 04/15/24 17:42
*General Assessment Last Done: 04/15/24 17:41
*Neglect/Abuse Screening Last Done: 04/15/24 17:42
*ED COVID-19 Vaccine History Last Done: 04/15/24 17:40
ED- Cardiac Assessment Last Done: 04/15/24 17:59
ED- Neurological Assessment Last Done: 04/15/24 18:00
ED- Pulmonary Assessment Last Done: 04/15/24 18:01
Discharge Date and Time
Print Language: YORUBA
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
[2024-04-15 19:35] LABS: Lipase 43 U/L (23-300)
--- NOTE | 2024-04-15 19:43 | W.PN.UPDATE ---
Update Note
Progress Note Update
Patient seen in conjunction with STAFF INTERNIST OFFICE BASED ONLY. I agree with findings on history and physical. I concur with the assessment and plan unless stated otherwise.
This is an 79-year-old with multiple medical comorbidities including atrial fibrillation on anticoagulation, COPD, hypertension, peripheral vascular disease status post aortic stenting, colostomy, chronic kidney disease with a baseline creatinine
from 1.4-1.8, chronic anemia who presents to the emergency department with increasing weakness and lethargy. Patient reported that slightly over the last 2 days he has had no appetite and has not eating anything. He reports progressive weakness
and then had a fall today. He had no syncopal episode. He denied having any palpitations. He denied any chest pain. He denied any lower extremity swelling. He denied have any fevers or chills at home. He denies nausea vomiting or diarrhea. He
has a pelvic/abdominal pain radiating to right side
Interestingly in the ED the patient was found to have acute cholecystitis which will be slightly typical presentation. He is presentation was septic shock with hypotension and leukocytosis. Blood pressure 1
Was 90/50 he was afebrile oxygen saturation was 100% on room air and his pulse rate was 70. He had a leukocytosis to 34,000, hemoglobin was 8.7, platelet count was 272. Electrolytes with were notable for a bicarb of 10, BUN of 19 and a creatinine
of 1.9. Glucose was 137. LFTs were notable for T. bili of 2.8 AST of 866 and ALT of 300 with alk phos of 600. The imaging study was a CT of the abdomen pelvis which showed gallbladder stone sludge and wall thickness. Cannot rule out the
pericholecystic fluid. There is pyelonephritis on the right kidney on CT.
Assessment and plan
1. Sepsis -patient with likely acute cholecystitis and less likely cholangitis but cholangitis cannot be ruled out entirely. Possible pyelonephritis pending UA.
- admit to IMU
- s/p 30ml/kg NS resuscitation
- blood cultures x 2,
- u/a and urine cultures pending
- agree with continuation of Zosyn for now
- hold vanc, negative prior mrsa screening and no respiratory or skin source
- bolus 500 ml LR and then pressors to maintain map >60
2. Gall bladder - acute cholecystitis likely secondary to GB stones
- abx as above
- trend LFTs
- MR abd/mrcp urgently
- surgery consulted
- npo for now except ice chips
3. Electrolytes - NATALIE with severe metabolic acidosis and oligo/anuria. Creatinine only slightly increased compared to baseline
- check vbg, if acidotic start D5 1/2 NS + 75 meq ml bicarb gtt
- avoid nephrotoxins (s/p contrast)
- renal dose medications
- strict i/os
- if oliguric o/n consult nephrology as likely in ATN.
4. Anemia - Hgb 8.7. Likely to drop with fluids
- type and screen
- transfuse for Hgb < 7
5. AFIB
- continue amio
- holding coreg, metoprolol 5mg iv for rate control prn rates > 110
- hold eliquis tonight and re-eval in am
6. HTN
- hold lisinopril
DVT PPX - pending restart of eliquis
Code Status - pt states DNR, pending correlation with spouse
[2024-04-15] MEDS: VANCOCIN 540 MG IV (19:52)
[2024-04-15] MEDS: LR 500 IV (20:45)
[2024-04-15 21:04] LABS: Venous Blood Gas B.E. -13.7 mmol/L (-4 to +4); Venous Blood Gas HCO3 12.3 mmol/L (22-27); Venous Blood Gas O2 Sat % 95.9 %; Venous Blood Gas pCO2 28 mmHg (35-48); Venous Blood Gas pH 7.25 (7.32-7.43); Venous Blood Gas pO2 75 mmHg (30-50)
[2024-04-15 22:30] LABS: Lactic Acid 6.5 mmol/L (0.7-2.0)
[2024-04-15] MEDS: DESYREL 50 MG PO (22:40)
[2024-04-15] MEDS: PEPCID 20 MG PO (22:41)
[2024-04-15] MEDS: TYLENOL 650 MG PO (22:42)
[2024-04-16] VITALS (9 sets, daily range): BP systolic 127–174; BP diastolic 52–107; BMI 23.1
[2024-04-16] MEDS: SODIUM BICARBONATE 1075 MEQ IV (01:21)
[2024-04-16 01:56] LABS: Urine Albumin 1+ (Neg - Trace); Urine Bilirubin 1+ (Negative); Urine Character Clear (Clear); Urine Color Amber; Urine Glucose Negative (Negative); Urine Ketone Negative (Negative); Urine Leukocyte Negative (Negative); Urine Nitrite Negative (Negative); Urine Occult Blood 3+ (Negative); Urine Urobilinogen 1+ (Neg - 1+)
[2024-04-16 02:09] LABS: Urine Bacteria Moderate (Negative); Urine Red Blood Cell 16-20 /HPF (0-2)
[2024-04-16 02:32] LABS: Lactic Acid 3.4 mmol/L (0.7-2.0)
[2024-04-16] MEDS: ZOSYN 50 IV ×4 (03:19→20:53)
--- NOTE | 2024-04-16 03:27 | PTCARENOTE ---
Pt received from ED RN. Pt AAOx3. NSR on monitor. No edema. HR 77. BP /70. pt on RA, sat 95%. No SOB. Pt with colostomy, putting out loose soft parks stool. Pt bladder scanned for 246, one time order received for straight cath by provider for UC. Pt
straight cathed for 340ml, UC sent. N/S with sodium bicarb running @ 125 ml/hr. Call light in reach.
[2024-04-16 06:31] LABS: Lactic Acid 1.8 mmol/L (0.7-2.0)
[2024-04-16 06:39] LABS: Hematocrit 23.8 % (39.0-52.0); Mean Corp Hgb Conc. 33.6 g/dL (33.0-37.0); Mean Corpuscular Volume 83.2 fL (80.0-94.0); Mean Platelet Volume 10.8 fL (7.4-10.4); Platelet Count 218 10^3/uL (130-400); Red Blood Cell Count 2.86 10^6/uL (4.70-6.10); White Blood Cell Count 28.6 10^3/uL (4.8-10.8)
[2024-04-16 07:06] LABS: ALT (SGPT) 579 U/L (0-50); Albumin 2.7 g/dl (3.5-5.0); Alkaline Phosphatase 452 U/L (38-126); Blood Urea Nitrogen 25 mg/dl (9-20); Calcium 8.2 mg/dl (8.4-10.2); Carbon Dioxide 20 mmol/L (22-30); Chloride 106 mmol/L (98-107); Estimated Creatinine Clearance 35 ml/min; Glucose 110 mg/dl (70-99); HDL Cholesterol 42 mg/dl; LDL Cholesterol, Calculated 14 mg/dl; Potassium 3.5 mmol/L (3.5-5.1); Sodium 140 mmol/L (135-145); Total Bilirubin 1.8 mg/dl (0.2-1.3); Total Cholesterol 72 mg/dl (50-199); Total Protein 5.6 g/dl (6.3-8.2); Triglyceride 80 mg/dl (10-149); Very Low Density Lipoprotein 16 mg/dl (0-30); eGFR 40.25
[2024-04-16 07:16] LABS: AST (SGOT) 1129 U/L (17-59)
[2024-04-16 07:26] LABS: % Basophils 0.2 % (0-2); % Immature Granulocytes 2.5 % (0-0.5); % Lymphocytes 3.6 % (20.5-51.1); % Monocytes 2.6 % (1.7-9.3); % Neutrophils 91.1 % (42.2-75.2); Absolute Basophils 0.1 10^3/uL (0-0.2); Absolute Immature Granulocytes 0.7 10^3/uL (0-0.05); Absolute Monocytes 0.8 10^3/uL (0.1-0.6); Nucleated Red Blood Cells % 0 % (-)
[2024-04-16] MEDS: HEPARIN 5000 UNITS SC ×2 (08:30→20:52)
[2024-04-16] MEDS: B COMPLEX w/VITAMIN C 1 CAPLET PO (08:30)
[2024-04-16] MEDS: FOLVITE 1 MG PO (08:30)
[2024-04-16] MEDS: PACERONE 400 MG PO (08:30)
[2024-04-16] MEDS: LR 1000 IV (08:51)
[2024-04-16] MEDS: DILAUDID 0.25 MG IV ×2 (08:51→13:50)
--- NOTE | 2024-04-16 09:05 | PTCARENOTE ---
Received this am, AOx3 c/o pain abdominal 01/16 and also generalized pain everywhere, BP 172/87. Dilaudid ordered and administered. IVF/ IV Antibx as ordered. Colostomy some output in bag unable to visualize- will order supplies. No urine output
since straight cathed 2am- will bladder scan.
--- NOTE | 2024-04-16 10:12 | CON.GS ---
Addendum entered and electronically signed by Noel Santana MD 04/16/24 13:51:
I saw and examined the patient independently.
The Structural Engineering Technician's note was reviewed and I agree with the note, assessment and plan except where noted below.
Comment: This is an 79-year-old male with past medical history of hyperlipidemia, CAD status post CABG, A-fib on Eliquis last dose was 04/15/20 4 AM, vascular disease status post aortic endograft on 08/05/2023 complicated by ischemic colitis status
post open left colectomy with distal transverse and colostomy who presented to our hospital yesterday with significant right upper quadrant pain, hypotensive on arrival, leukocytosis with LFT derangements and appeared to be in septic shock. In
addition, his blood cultures are positive. Initial noncontrast CT scan demonstrates gallbladder stones and sludge that is markedly different from his previous CT scan. An MRI was obtained and found to have choledocholithiasis as well as severe
acute, likely perforated calculus cholecystitis. Though the patient's vitals have stabilized with resuscitation and antibiotics he still remains significantly tender in the right upper quadrant.
The patient needs urgent ERCP and subsequent cholecystectomy. I had a lengthy discussion with the patient's and she understands that cholecystectomy alone will not suffice as he likely has superimposed ascending cholangitis. In discussion
with the gastroenterology service, unfortunately there is no provider capable of performing ERCP today so agree with urgent transfer to a tertiary care facility.
Continue n.p.o., IV fluids and IV antibiotics.
Hold anticoagulation
General surgery will continue to follow while patient is admitted.
I spent 75 minutes in total for the care of this patient today including direct patient care and counseling, reviewing labs, imaging, coordination of care, as well as documentation.
Original Note:
Consultation
-
Date/Time Consultation Requested: 04/15/2024
Date/Time Consultation Performed: 20:17
Requesting Provider: Pita Tamez
Reason for Consultation: septic shock abdominal pain post cholecystitis/pyelonephritis
Medical History
-
Chief Complaint: weakness, lethargy, loss of appetite x 2 days, abdominal pain rt side
History of Present Illness:
Patient is a 79-year-old male with weakness, lethargy, loss of appetite x 2 days, abdominal pain rt side. uses a walker to ambulate. on Friday he had liquid brown diarrhea filling his colostomy site he had emptied twice. has not voided in the past
2 days. Pain in the right upper quadrant of abdomen and radiating to his right flank area but also along the lower aspect of his left-sided colostomy. Does not know when his last dose of Eliquis, but states that has this information so contact
her to find out. He denies headache, sore throat, fever, chills, chest pain, palpitations, shortness breath, cough, vomiting, recent antibiotics.
Past Medical History
Past Medical History: CAD, COPD, CVA (november 2021), HTN, Renal Failure and Other (Atrial fibrillation, colostomy, HLD, Anemia, )
Past Surgical History: Other
Social History
Tobacco: Former Smoker (Stopped July 2023)
Alcohol: Former (Stopped July 2023)
Drug: None
Personal:
Living: With Family
Employment: Retired
Family History
Family History: Reviewed & Not Pertinent
Allergies / Home Medications
Allergy/AdvReac Type Severity Reaction Status Date / Time
Benzodiazepines Allergy works Verified 04/15/24 19:09
opposite-
gets
agitated
codeine Allergy gets wild- Verified 04/15/24 19:09
hallucinations,
visual
diazepam Allergy agitated + Verified 04/15/24 19:09
nervous
�Medication �Instructions �Recorded �Confirmed �Type
apixaban 5 mg tablet (Eliquis) 5 mg PO BID Blood clot 05/10/23 04/15/24 Rx
prevention/tx #0 tabs
amiodarone 400 mg tablet 400 mg PO DAILY #60 tabs 09/02/23 04/15/24 Rx
cholecalciferol (vitamin D3) 50 50 mcg PO DAILY Supplement 09/20/23 04/15/24 History
mcg (2,000 unit) tablet
famotidine 20 mg tablet 20 mg PO HSPRN PRN gi issues 09/20/23 04/15/24 History
trazodone 50 mg tablet 50 mg PO HSPRN PRN sleep 09/20/23 04/15/24 History
vitamin B complex 1 tab PO DAILY Supplement 09/20/23 04/15/24 History
carvedilol 12.5 mg tablet 12.5 mg PO BID #60 tabs 09/26/23 04/15/24 Rx
ascorbic acid (vitamin C) 500 mg 500 mg PO TID Supplement 04/15/24 04/15/24 History
tablet (Vitamin C)
budesonide 160 mcg-glycopyr 9 2 inh inhalation R BID 04/15/24 04/15/24 History
mcg-formot 4.8 mcg/actuation HFA Lung/Breathing Issues
inhaler (Breztri Aerosphere)
cetirizine 10 mg tablet 10 mg PO DAILY Allergies 04/15/24 04/15/24 History
folic acid 1 mg tablet 1 mg PO DAILY Supplement 04/15/24 04/15/24 History
lisinopril 5 mg tablet 10 mg PO DAILY Blood Pressure 04/15/24 04/15/24 History
rosuvastatin 40 mg tablet 40 mg PO QPM High Cholesterol 04/15/24 04/15/24 History
zinc sulfate 50 mg zinc (220 mg) 50 mg PO DAILY Supplement 04/15/24 04/15/24 History
tablet
Review of Systems
-
History Source: Patient
Constitutional: Fatigue
Abdomen/GI: Abdominal Pain (right upper quadrant radiating to back )
A 10 point review of systems was completed, and was negative except as per HPI.
Physical Exam
Vital Signs
Temp Pulse Resp BP Pulse Ox
98.2 F 82 32 172/87 94
04/16/24 07:11 04/16/24 08:00 04/16/24 08:00 04/16/24 08:00 04/16/24 08:00
04/15/24 04/16/24 04/17/24
06:59 06:59 06:59
Actual Weight 73.1 kg
Body Mass Index (BMI) 23.1
Lab Results
04/16/24 06:05
04/16/24 06:05
WBC 28.6 10^3/uL (4.8-10.8) H 04/16/24 06:05
Hgb 8.0 g/dL (13.0-18.0) L 04/16/24 06:05
Hct 23.8 % (39.0-52.0) L 04/16/24 06:05
Plt Count 218 10^3/uL (130-400) 04/16/24 06:05
Abs Immat Gran (auto) 0.7 10^3/uL (0-0.05) H 04/16/24 06:05
Neutrophils % 91.1 % (42.2-75.2) H 04/16/24 06:05
Physical Exam
General: Pain; Negative No Apparent Distress
GI: Tender (Tenderness to right upper quadrant which radiates posteriorly to the right flank)
Neuro: Awake, Alert, Oriented and AO x 3
Psych: Agitated
Data Reviewed
-
Medical Tests (Nuc Med, Echo etc): Image Personally Visualized and interpreted
Labs: Labs Reviewed by me and Discussed with Physician
Assessment / Plan
-
Given exam and imaging, we suspect developing cholecystitis vs biliary colic
WBC 28.6 today (trending down), Lactic Acid 1.8, Total bilirubin 1.8, hgb 8.0, creatinine 1.7, AST 1129, ALT 559, Serum Glucose 110
# acute cholecystitis likely secondary to Gall bladder stones:
- CT abdomen/pelvis showed small stones and/or sludge with possible gallbladder wall thickening.
- Continue patient on Zosyn
- Continue NPO except ice chips
- On physical examination, tenderness, guarding in the right upper abdominal region and right flank region
- Trend LFT's
- Call patients to find out when last dose of Eliquis was taken.
- Considering possibility of cholecystectomy once patient is stabilized and information regarding last Eliquis dose is obtained
# Anemia:
- manage medically with the hospitalist team
# Atrial fibrillation:
- manage medically with the hospitalist team.
# HTN:
- manage medically with hospitalist team.
--- NOTE | 2024-04-16 11:47 | PTCARENOTE ---
Voided 250ml. Escorted to MRI on monitor-scan completed. Pain improved post IV Dilaudid 09/16.
--- NOTE | 2024-04-16 13:03 | W.PN.UPDATE ---
Update Note
Progress Note Update
Briefly, Avery Guajardo is an 79-year-old male with past medical history of hyperlipidemia, CAD status post CABG in 2016, history of PCI in 1993, 1994, history of NSVT in August 2023, permanent A-fib, history of CVA, CKD 3B, PAD/AAA/iliac disease s/p
aortic endograft on 08/05/2023 with post operative course complicated by ischemic colitis status post open left colectomy and distal transverse end colostomy admitted [facility] with weakness, lethargy and right-sided abdominal
pain, mostly RUQ with some radiation to right flank found to be septic.
Initially slightly hypotensive with systolics in the 90s on arrival, he has been normotensive since, now slightly hypertensive with BP 172/87 mmHg. Other vitals WNL.
Initial leukocytosis of 34K --> 28.6, 12% Bands, Hgb 8.7 --> 8.0, baseline Hgb ~8-9. Plt 219.
BUN 25/Cr. 1.7, Lactate 13.2 -->6.5 -->3.4 --> 1.8, Tbili 1.8, AST 1129, ALT 579, Alk phos 452, Lipase [address] A/P with gallbladder stones/sludge and possible GB wall thickening, unable to exclude acute cholecystitis. Follow-up MRI/MRCP was obtained, demonstrating severe acute calculous (possibly gangrenous) cholecystitis with suspicion for
gallbladder perforation and 2.7 cm pericholecystic abscess, sever RUQ pericholecystic edema and moderate nonloculated fluid, edema in the ty of hte intrahepatic bile ducts, CBD mildly distended measuring up to 6.6 mm, there is a 7.8 x 5.1 mm low
signal intensity stone in the distal common bile duct. Additionally noted is a air-filled diverticulum protruding medially from the second portion of the duodenum and superiorly from the third portion of the duodenum measuring up to 2.6 cm in size.
Last dose of Eliquis is unclear, primary team attempting to clarify with patient's .
Patient is critically ill, currently maintaining his pressures however, he is septic, with a perforated gallbladder complicated by abscess and cholangitis/choledocholithiasis, requiring both endoscopic and surgical intervention. Uncertainly, there
is no advanced management developer available to perform an urgent ERCP. Will proceed with transfer to tertiary care center. Once accepted, will reach out to interventional GI to help coordinate care.
--- NOTE | 2024-04-16 14:35 | W.PN.HOSP.TC ---
Addendum entered and electronically signed by Jef Ronquillo MD 04/28/24 16:38:
Septic shock was ruled out, Severe sepsis only
Addendum entered and electronically signed by Jef Ronquillo MD 04/18/24 15:43:
[id number]
More than 30 minutes spent in discharge including
Final examination of the patient
Summarizing hospital stay
Instructions for continuing care to all relevant caregivers
Preparation of discharge records, prescriptions, and referral forms
Total time spent (45 in minutes):
Original Note:
Today's Communication/Plan
-
IV antibiotics, n.p.o., IV fluids
In the process of transferring patient, will be transferred for urgent ERCP
Repeat blood cultures
Assessment / Plan
Assessment / Plan
Physical Exam
General: Conversant and Pain (Right sided abdomen, suprapubic, follow left-sided colostomy); No Fever or Other
HEENT: NormoCephalic, Anicteric, Moist mucous membranes, PERRLA, [place] Conjunctivae, No Ptosis and Neck Nontender
Respiratory: Clear; No Wheezes, Rales or Rhonchi
Cardiac: S1/S2 and Regular Rhythm; No Murmur, Rub, Gallop or Peripheral Edema
Breast: Deferred by me
GI: Soft, Non Distended, Normal Bowel Sounds, Tender (Right side abdomen, right flank, suprapubic area, left side below ostomy site with no erythema appreciated) and No Hepatosplenomegaly
Rectal: Deferred by Provider
Genito-urinary: Deferred by me
Musculoskeletal: No Clubbing, No Cyanosis and No Edema
Skin: Warm, Dry and Rash
Neuro: AO x 3 and No Motor Deficits; No No Sensory Deficits, Slurred Speech, Facial Droop, Tremors or Sedated
#Severe Sepsis
#Acute calculus cholecystitis, possibly gangrenous cholecystitis
#Suspicion for gallbladder perforation
#Pericholecystic abscess
#Choledocholithiasis
#Suspicion for ascending cholangitis
#Transaminitis
�N.p.o., IV fluids
� IV antibiotics
�Will need surgical and advanced endoscopic intervention unfortunately no advanced�endoscopist currently
�Requesting transfer for advanced endoscopy, ERCP and subsequent surgical intervention
-Hold lisinopril 10 mg daily, carvedilol 12.5 mg twice daily
�Monitor fever curve, white count
� Hold anticoagulation, Eliquis last given 04/15 morning
# NATALIE on CKD 3B
#Left kidney infarction by CT 08/14/2023
-Creat 1. 9 -baseline appears 1.4 since September 2023
�Continue IV fluids
-bladder scan in Er no urine
-Hold lisinopril
-follow bmp, check VBG
#Possible pyelonephritis
� Continue antibiotics
Monitor renal function
� Follow-up urine cultures
#Metabolic acidosis
#Lactic acidosis
� Improved with resuscitation
� Bicarb proving
� IV fluids
#Bacteremia
� Secondary to suspected abdominal source
� Continue antibiotics
� Repeat blood cultures
#hx Cellulitis surrounding ostomy site 09/20/2023- no current cellulitis
#Hx ischemic colitis postop vascular surgery status post colostomy/flex sig and colectomy with colostomy on 08/06/[address] Padilla
#Acute on chronic macrocytic anemia
Hgb 8.7 MCV 86.2 hemoglobin 8-9 JulySeptember 2023
-follow cbc, no active bleeding
# Hx Dysphagia concern for aspiration pneumonia left basilar on current CXR
#Hx refusal of Dobbhoff/PEG tube admission 09/02/2023
#PAD/AAA/iliac disease
# 08/05/23: Bilateral femoral artery cutdown, endarterectomy with bovine patch angioplasty, retrograde balloon angioplasty, IV lithotripsy, and stenting of left iliac artery, endovascular aneurysm repair using physician modified aortic endograph
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
#Chronic memory impairment x1 year undiagnosed
#Permanent A-fib
-Hold carvedilol 12.5 mg p.o. twice daily
- amiodarone 400 mg daily
-HOLD Eliquis 5 mg twice daily
-IV as needed metoprolol for rate control
#CAD/PCI with stenting 1993 1994
#CABG 2016
#Hx NSVT August 29, 2023
-amiodarone 400 mg daily
-Follows with [facility]
2D echo 08/11/2023: EF 55%, mild LVH, no wall abnormalities, severe biatrial enlargement no valvular disease
#HLD
-HOLD Crestor 40 mg every afternoon
# Active smoker
-Former 1 pack a day x 30 years-stopped July 2023
Now smokes 3 to 4 cigarettes a day
#Former alcohol abuse stopped July 2023
#Current alcohol use
-Prior 4 beers daily until July 2023
Now drinks occasional beers had 3 beers 2 weeks ago
#Chronic ambulatory dysfunction
PT/OT/case management consult
#History of postop delirium August 2023 admission resolved on discharge
#Insomnia
May continue trazodone 50 mg at bedtime as needed for sedation
DVT prophylaxis
Hold Eliquis
May give subcu heparin
DNR per chart September 2023 admission
Anticipated Discharge: Today
Subjective/Interval History
-
Date of Service: April 16, 2024
Bacteremic, needs to be transferred over for urgent ERCP. Still having right upper quadrant pain
Objective Data
-
Labs:
Laboratory Results
04/16/24
06:05
WBC 28.6 H
Hgb 8.0 L
Hct 23.8 L
Plt Count 218
Sodium 140
Potassium 3.5
Chloride 106
Carbon Dioxide 20 L
BUN 25 H
Creatinine 1.7 H
Glucose 110 H
Calcium 8.2 L
Total Bilirubin 1.8 H D
AST 1129 H*
ALT 579 H*
Alkaline Phosphatase 452 H
Vital Signs:
Vital Signs
Temp Pulse Resp BP Pulse Ox
98.1 F 90 28 173/88 94
04/16/24 11:26 04/16/24 14:00 04/16/24 14:00 04/16/24 14:00 04/16/24 10:00
I&O
04/15/24 04/16/24 04/17/24
06:59 06:59 06:59
Output Total 880 / 880 325 / 325
Balance -880 / -880 -325 / -325
Review of Systems
-
History Source: Patient
All other systems: Not reviewed unless documented
Data Reviewed
-
Diagnostic Radiology: Image personally visualized and interpreted and Report Reviewed by me
CT Scan: Image personally visualized and interpreted
MRI: Image personally visualized and interpreted
Labs: Labs Reviewed by me
--- NOTE | 2024-04-16 14:47 | W.DS.TRANS ---
DC Summary - [facility]
-
Discharge Instructions:
Instructions:
Stand-Alone Forms:
Changes to Home Medications: No
Discharge Medications:
DC Medications w/original date entered in [facility]
apixaban 5 mg tablet (Eliquis) 5 mg PO BID Blood clot prevention/tx #0 tabs 05/10/23
amiodarone 400 mg tablet 400 mg PO DAILY #60 tabs 09/02/23
cholecalciferol (vitamin D3) 50 mcg (2,000 unit) tablet 50 mcg PO DAILY Supplement 09/20/23
famotidine 20 mg tablet 20 mg PO HSPRN PRN gi issues 09/20/23
trazodone 50 mg tablet 50 mg PO HSPRN PRN sleep 09/20/23
vitamin B complex 1 tab PO DAILY Supplement 09/20/23
carvedilol 12.5 mg tablet 12.5 mg PO BID #60 tabs 09/26/23
ascorbic acid (vitamin C) 500 mg tablet (Vitamin C) 500 mg PO TID Supplement 04/15/24
budesonide 160 mcg-glycopyr 9 mcg-formot 4.8 mcg/actuation HFA inhaler (Breztri Aerosphere) 2 inh inhalation R BID Lung/Breathing Issues 04/15/24
cetirizine 10 mg tablet 10 mg PO DAILY Allergies 04/15/24
folic acid 1 mg tablet 1 mg PO DAILY Supplement 04/15/24
lisinopril 5 mg tablet 10 mg PO DAILY Blood Pressure 04/15/24
rosuvastatin 40 mg tablet 40 mg PO QPM High Cholesterol 04/15/24
zinc sulfate 50 mg zinc (220 mg) tablet 50 mg PO DAILY Supplement 04/15/24
Home Medication Changes
na
Pending Results: No
--- NOTE | 2024-04-16 14:53 | CM ---
Patient with Dx Severe Sepsis, Acute calculus cholecystitis, possibly gangrenous cholecystitis, Suspicion for gallbladder perforation, Pericholecystic abscess, Choledocholithiasis, Suspicion for ascending cholangitis, Transaminitis. NPO. Receiving
IV Abx, IV Dilaudid prn. PT/OT Evals held.
Per Dr Ronquillo plan transfer to [place] for surgery.
Met with patient and spoke with Tabitha.
The patient resides with his in a split level house, with no steps at entrance through garage.
He had been independent in ADLs & ambulating short distances without using an assistive device.
At baseline says patient is very sedentary.
At baseline patient takes a shower once week and supervises.
states he goes outside and pees onto the lawn.
About 3 days ago the patient became weak and mostly remained in bed.
Yesterday he was too weak to get OOB, and when he tried he tripped and fell.
DME - RW, shower chair
VN - prior [place]
Recent [facility] SN[facility] - was a bad experience and will not go back to SNF again
PCP - Tabitha Carney
Pharmacy - [facility]
Plan transfer to [facility] when bed available.
[2024-04-16 17:03] LABS: Hematocrit 26.2 % (39.0-52.0); Hemoglobin 8.9 g/dL (13.0-18.0); Mean Corpuscular Hgb 27.8 pg (27.0-31.0); Mean Corpuscular Volume 81.9 fL (80.0-94.0); Mean Platelet Volume 10.5 fL (7.4-10.4); Platelet Count 240 10^3/uL (130-400); White Blood Cell Count 26.2 10^3/uL (4.8-10.8)
[2024-04-16 17:20] LABS: ALT (SGPT) 603 U/L (0-50); Albumin 2.9 g/dl (3.5-5.0); Alkaline Phosphatase 452 U/L (38-126); Blood Urea Nitrogen 29 mg/dl (9-20); Calcium 8.8 mg/dl (8.4-10.2); Carbon Dioxide 23 mmol/L (22-30); Chloride 104 mmol/L (98-107); Estimated Creatinine Clearance 41 ml/min; Glucose 109 mg/dl (70-99); Potassium 3.9 mmol/L (3.5-5.1); Sodium 139 mmol/L (135-145); Total Bilirubin 1.5 mg/dl (0.2-1.3); Total Protein 6.1 g/dl (6.3-8.2); eGFR 46.77
--- NOTE | 2024-04-16 17:46 | PTCARENOTE ---
Spoke with Nick at transfer center [facility]- no bed assigned yet. Remains NPO with IVF / antibx infusing. Oral care provided. AF on tele occasional PVCs. BP 170s/90s-100s MD aware. Voiding improving 625ml this shift. Pain improved after IV
Dilaudid.
[2024-04-16 17:50] LABS: AST (SGOT) 887 U/L (17-59)
--- NOTE | 2024-04-16 21:06 | W.PN.UPDATE ---
Update Note
Progress Note Update
RN notified Dr. Gómez, patient to be transferred to Med-Surg unit at [facility] per [facility], and [facility] at [facility]. Dr. Gómez stated to this INTERVENTIONAL PHYSIATRIST, to be okay to downgrade to
med-Surg if not on any IV Cardiac drip. Currently patient is not on any active Cardiac drip in current orders. Patient is OX3, stable at present, with stable VS. No new symptoms, Discharge order is in place by Dr. Ronquillo, Unable to downgrade to
Med-Surg as discharge order is in place at present. Dr. Gómez is aware. Transfer form filled and signed.
[2024-04-16] MEDS: LR IV (21:43)
--- NOTE | 2024-04-16 22:07 | PTCARENOTE ---
1929 Report called to [facility]. Spoke to Shruthi WOOD who will be receiving pt to room 948 there. After report was given Shruthi asked if pt is cardiac monitored. This RN told Shruthi yes he is and he is set up for cardiac monitored
transport by [facility]. She stated she could not accept pt since he would be going to med/surg floor. Told Shruthi WOOD that I would clarify transport on this end.
2014 Dr Gómez TT'd and updated on pt and reason for transfer to [facility]. Informed him that pt is accepted to a med/surg floor at [facility] but is currently on cardiac monitoring here and is required cardiac monitoring enroute to [facility]. Dr
Rico ACEVEDO'd he would 'downgrade pt to med/surg and pt 'does not need cardiac monitoring if not on any cardiac drips.' This RN informed him will reach out to [employer] to fill out new medical necessity questionnaire form.
2034 Padmini YODER TT;carrie and made aware of above. She will be up to fill out new medical necessity form. Up to floor and new form completed and on chart. IVF's D/C'd. Unable to enter new order for Med/surg since Discharge order already entered
previously. Ok to take pt off panel monitor. IVF's d/c'd.
2144 Received call from NINA Hawkins that the Dr's at [facility] will accept pt to med/surg floor same room 948. Transport called back as well and will pick pt up approx 2200. VSS and documented. Continuum of care printed. Pt updated and personal
belongings bagged and ready for transport. Pt will hold his phone during transport per pt.
--- NOTE | 2024-04-16 23:39 | PTCARENOTE ---
Transport arrived to transport pt to [facility] room 948. Pt update given and pt and personal belongings left with transport at 2320.
--- NOTE | 2024-04-20 10:13 | PN.CDI ---
CDI
- -
CDI:
Physician Documentation Request
Admit Date: 04/15/24 21:01
Dear Doctor Shima
The diagnosis of septic shock was documented on 04/15 in H&P, but is not consistently noted in subsequent documentation.
04/16 progress note and discharge summary state 'severe sepsis'
No pressors were used. Patient received 1000 ml bolus x 1 and 1200 ml.
Please clarify the following:
____ - Septic shock was present
____ - Septic shock was ruled out, Severe sepsis only
____ - Other
Use of terms such as suspected, likely, concern for, or probable (associated with a specific diagnosis that is being evaluated, monitored, or treated as if it exists) are acceptable and can be coded in the inpatient setting, when documented at the
time of discharge.
Thank you,
Berenice Jerry RN, BSN
CDI Specialist
tiger text
Please use your independent medical judgment in providing your response.
== END 2024-04-16 23:20 | disposition short-term general hospital (02) | DRG 871 ==
LOC: IMU 21:01
PROVIDERS: Clinical Nurse Specialist Family Health; Physician Assistant Medical; ADMITTING PHYSICIAN Internal Medicine; ATTENDING PHYSICIAN Internal Medicine; EMERGENCY PHYSICIAN Emergency Medicine; FAMILY PHYSICIAN Family Medicine; OTHER PHYSICIAN Surgery
DX: A41.9 Sepsis, unspecified organism (principal); N17.0 Acute kidney failure with tubular necrosis; E87.20 Acidosis, unspecified; I48.21 Permanent atrial fibrillation; K80.62 Calculus of gallbladder and bile duct with acute cholecystitis without obstruction; N12 Tubulo-interstitial nephritis, not specified as acute or chronic; K76.89 Other specified diseases of liver; D53.9 Nutritional anemia, unspecified; I12.9 Hypertensive chronic kidney disease with stage 1 through stage 4 chronic kidney disease, or unspecified chronic kidney disease; I73.9 Peripheral vascular disease, unspecified; J44.9 Chronic obstructive pulmonary disease, unspecified; M35.3 Polymyalgia rheumatica; N18.32 Chronic kidney disease, stage 3b; R65.20 Severe sepsis without septic shock; F10.11 Alcohol abuse, in remission; E78.00 Pure hypercholesterolemia, unspecified; F17.210 Nicotine dependence, cigarettes, uncomplicated; F41.9 Anxiety disorder, unspecified; G47.00 Insomnia, unspecified; I25.10 Atherosclerotic heart disease of native coronary artery without angina pectoris; Z95.1 Presence of aortocoronary bypass graft; Z95.5 Presence of coronary angioplasty implant and graft; I95.89 Other hypotension; W19.XXXA Unspecified fall, initial encounter; R19.7 Diarrhea, unspecified; R26.2 Difficulty in walking, not elsewhere classified; R63.0 Anorexia; R79.89 Other specified abnormal findings of blood chemistry; Z68.23 Body mass index [BMI] 23.0-23.9, adult; Z79.01 Long term (current) use of anticoagulants; Z79.899 Other long term (current) drug therapy; Z86.73 Personal history of transient ischemic attack (TIA), and cerebral infarction without residual deficits; Z87.19 Personal history of other diseases of the digestive system; Z85.828 Personal history of other malignant neoplasm of skin; Z93.3 Colostomy status; Z88.5 Allergy status to narcotic agent; Z86.79 Personal history of other diseases of the circulatory system; Z82.49 Family history of ischemic heart disease and other diseases of the circulatory system
CPT/HCPCS: 51798; 71045; 74177; 74181; 80053; 80061; 81003; 81015; 82805; 83605; 83690; 85025; 85027; 85610; 85730; 87040; 87086; 87149; 87186; 87205; 87502; 87811; 93005; 96361; 96365; 96367; 99291; 99406; J7030; Q9967

== ENCOUNTER 2024-04-21 10:51 | Inpatient (IN) | payer OTHER, SELFPAY ==
--- NOTE | 2024-04-20 20:17 | ED.GENMED ---
History of Present Illness
General
Chief Complaint: Weakness
Source: patient and ambulance crew
Exam Limitations: altered mental status
Time Seen by Provider: 04/20/24 20:03
Nursing documentation reviewed up to this point in time: agreed with
History of Present Illness
History of Present Illness:
79-year-old male presents to the emergency department due to weakness. He was just discharged from [facility] after sepsis and a biliary drain. He is brought in by EMS. His son drove him home from [place] and he was too weak to get out
of the car, and they drove him here.
Past History
Past History
ED Past Medical History: CAD, Cancer (Nasal skin cancer), CVA, HTN, Hypercholesterolemia, [place], Psychiatric (Anxiety), Other (Peripheral vascular disease) and Other (Polymyalgia rheumatica)
ED Past Surgical History: Cardiac (PTCA 1993, 1994. Cardiac catheter 2004 revealing patent stents with no intervention. Cardiac catheter March 2012 showing nonocclusive, noncritical calcific coronary artery disease. EF of 48%.), Orthopedic (Carpal
tunnel release) and Other (Mohs surgery, nasal bridge skin cancer)
Social History
Tobacco: Smoker
Alcohol: Daily
Drug: None
Personal:
Living: with family
Employment: Retired
Family History
Family History: Hypertension, CAD and Cancer
Review of Systems
Review of Systems
Allergies reviewed?: Yes
Unable to obtain full review of systems at this time due to: other (Altered mental status)
Neurological: Reports weakness
Phy Exam
Physical Exam
Physical Exam:
Physical Exam
General: Confused
Neck: supple. no meningeal signs. normal posterior pharynx
Heart: s1/s2 regular rate and rhythm, no murmur. equal radial
pulses.
HEENT: Pupils equal round reactive to light, EOMI
Lungs: no acute respiratory distress. clear bilaterally
Abdomen: normal bowel sounds. not tender. no CVAT, colostomy in place, biliary drain draining bile
Neuro: alert and oriented to person. no focal neurological deficits cranial nerves II through XII intact
Skin: no rash
Psychiatric: well kept. interactive and cooperative
Extremities: no edema. no calf tenderness. negative homans. good distal pulses
Course
Orders/Labs/Results
Orders:
Orders
04/20/24 20:08
ECG [Electrocardiogram (*1)] Urgent
Reason for Study: Atrial Fibrillation
Cardiology Consult: Unknown
EKG- Treatment ONCE
04/20/24 20:15
Electrocardiogram (*1) Urgent
CT Head W/o Iv Contrast Urgent
Comment:
Reason For Exam: altered mental status
EKG- Treatment ONCE
Urinalysis Reflex To Culture Urgent
04/20/24 20:41
Ammonia Urgent
Complete Blood Count/With Diff Urgent
Comprehensive Metabolic Panel Urgent
Lactic Acid Q4H
Comment: CANCEL 2nd LACTIC ACID IF 1st LACTIC ACID IS LESS THAN 2
04/20/24 22:33
Admit/Transfer Patient As Directed
Co-Sign Provider:
Level of Care: Observation services
Assign to:: Telemetry
Physician / Group: [email or web address]
Diagnosis: ambulatory dysfunction
Reason for Telemetry: Arrhythmia
Date to Stop Telemetry: 04/23/24
Time to Stop Telemetry: 11:00
PRN Pain Medication Management As Directed
May give lesser potent ordered pain med per pt: Yes
preference::
Protocol:: Medication orders for pain may be administered in a
manner that supports deferring to patient preference
when the pt is:
- Requesting an ordered lesser potent pain medication.
Least to most potent pain medications are defined
as: acetaminophen < NSAID < tramadol < opioids
(morphine, oxycodone, hydromorphone).
- Requesting a lesser dose of the same medication IF
ORDERED.
- Requesting a less intrusive route of administration
if both routes are prescribed by the provider (PO <
IV).
04/20/24 22:35
Code Status As Directed
Resuscitation Status: Full Code
04/20/24 23:00
Flush (0.9% Sodium Chloride) [Flush (Nss)] See Dose Instructions IV PER PROTOCOL
04/23/24 11:00
DC Protocol for Telemetry ONCE
Abnormal Lab Results
04/20/24
20:41
WBC 15.2 H 10^3/uL
(4.8-10.8)
RBC 3.05 L 10^6/uL
(4.70-6.10)
Hgb 8.3 L g/dL
(13.0-18.0)
Hct 24.1 L %
(39.0-52.0)
MCV 79.0 L fL
(80.0-94.0)
RDW 17.9 H %
(11.5-14.5)
MPV 10.5 H fL
(7.4-10.4)
Abs Immat Gran (auto) 0.3 H 10^3/uL
(0-0.05)
Absolute Neuts (auto) 13.3 H 10^3/uL
(1.4-6.5)
Absolute Lymphs (auto) 0.7 L 10^3/uL
(1.2-3.4)
Absolute Monos (auto) 0.9 H 10^3/uL
(0.1-0.6)
Immature Gran % 1.9 H %
(0-0.5)
Neutrophils % 87.5 H %
(42.2-75.2)
Lymphocytes % 4.5 L %
(20.5-51.1)
Potassium 3.4 L mmol/L
(3.5-5.1)
BUN 26 H mg/dl
(9-20)
Creatinine 1.5 H mg/dL
(0.7-1.3)
Glucose 118 H mg/dl
(70-99)
AST 75 H U/L
(17-59)
ALT 161 H U/L
(0-50)
Alkaline Phosphatase 277 H U/L
(38-126)
Ammonia < 9 L umol/L
(9-30)
Total Protein 6.1 L g/dl
(6.3-8.2)
Albumin 2.9 L g/dl
(3.5-5.0)
04/20/24 20:41
04/20/24 20:41
Vital Signs
Initial and Last Documented VS:
Initial Vital Signs
Pulse Resp Pulse Ox
87 20 93
04/20/24 20:04 04/20/24 20:04 04/20/24 20:04
Last Documented Vital Signs
Pulse Resp BP Pulse Ox
79 20 154/72 94
04/20/24 23:49 04/20/24 23:49 04/20/24 23:49 04/20/24 23:49
MDM/Problems Addressed
Differential Diagnosis Includes:
Acute on chronic dementia, sepsis, hepatic encephalopathy, deconditioning
MDM/Problems Addressed:
79-year-old male with weakness, hallucination, likely progression of chronic dementia, and deconditioning. Patient with recent cholecystostomy yesterday. Admit to hospitalist for further workup.
Chronic conditions affecting care: Neurological disorder
Acute Exacerbation and/or Progression of Chronic Illness: Neurological disorder
*Radiology
Radiology exam reviewed: radiology read reviewed (CT head no acute findings)
*Pulse Oximetry
Patient hypoxic: no
*EKG
Interpreted by ED Provider?: Yes
EKG Intrepretation Date: 04/21/24
EKG Intrepretation Time: 20:18
Interpretation: abnormal
Comparison EKG: changes noted
Heart Rate: 81
Rate: normal
Rhythm: a-fib
[place]: normal axis
Interval: normal interval
QRS Pattern: normal QRS
Ischemia: non-specific ST changes
*Continuous Improvement Coordinator Interpretation
Rate: normal
Interpretation: abnormal
Heart Rate: 80
Rhythm: a-fib
*Critical Care Note
Total Time (30-74mins, 75-104mins- exclusive of procedures): Not Applicable
Data Reviewed
Review of Other/Old Records Reveals: Records (Recent cholecystostomy at [facility])
Source: records and previous hospital records
Patient Management
Social determinants of health affecting care: Living situation and Strong social support
Discussion with other providers: Hospitalist
Escalation/DeEscalation of care consider admission/obs:
Admit indicated
ED Attending Note
-
Portions of this chart may have been created with voice recognition software.� Occasional wrong word or��sound alike� substitutions may have occurred due to the inherent limitations of voice recognition software.
Discharge Plan
Departure
Patient Disposition: Admit
Date of Disposition: 04/20/24
Time of Disposition: 21:41
Admit to: Telemetry
Presentation/result/management discussed w/ accepting MD/DO: Hospitalist
Condition: Fair
Discharge Problem:
Weakness, Permanent atrial fibrillation
Interventions
Interventions:
*Risk Screen - Suicide Last Done: 04/20/24 20:24
*General Assessment Last Done: 04/20/24 20:24
*Neglect/Abuse Screening Last Done: 04/20/24 20:24
ED- Fall Risk Assessment Last Done: 04/20/24 20:24
*ED COVID-19 Vaccine History Last Done: 04/20/24 20:24
ED- Cardiac Assessment Last Done: 04/20/24 20:24
ED- Neurological Assessment Last Done: 04/20/24 20:24
ED- Pulmonary Assessment Last Done: 04/20/24 20:24
[2024-04-20 20:19] VITALS: BMI 24.7
[2024-04-20 20:23] VITALS: BP 169/95
--- NOTE | 2024-04-20 20:42 | ED TECH ---
This placed a call to overnight medical records at [facility], provided a fax number, and request sent
[2024-04-20 20:58] LABS: % Basophils 0.1 % (0-2); % Eosinophils 0.1 % (0-6); % Immature Granulocytes 1.9 % (0-0.5); % Lymphocytes 4.5 % (20.5-51.1); % Monocytes 5.9 % (1.7-9.3); % Neutrophils 87.5 % (42.2-75.2); Absolute Immature Granulocytes 0.3 10^3/uL (0-0.05); Absolute Lymphocytes 0.7 10^3/uL (1.2-3.4); Absolute Monocytes 0.9 10^3/uL (0.1-0.6); Absolute Neutrophils 13.3 10^3/uL (1.4-6.5); Hematocrit 24.1 % (39.0-52.0); Hemoglobin 8.3 g/dL (13.0-18.0); Mean Corp Hgb Conc. 34.4 g/dL (33.0-37.0); Mean Corpuscular Hgb 27.2 pg (27.0-31.0); Mean Platelet Volume 10.5 fL (7.4-10.4); Nucleated Red Blood Cells % 0.3 % (-); Platelet Count 245 10^3/uL (130-400); Red Blood Cell Count 3.05 10^6/uL (4.70-6.10); Red Cell Dist. Width 17.9 % (11.5-14.5); White Blood Cell Count 15.2 10^3/uL (4.8-10.8)
[2024-04-20 21:08] LABS: Lactic Acid 1.3 mmol/L (0.7-2.0)
[2024-04-20 21:09] LABS: Ammonia < 9 umol/L (9-30)
[2024-04-20 21:15] LABS: ALT (SGPT) 161 U/L (0-50); AST (SGOT) 75 U/L (17-59); Albumin 2.9 g/dl (3.5-5.0); Alkaline Phosphatase 277 U/L (38-126); Blood Urea Nitrogen 26 mg/dl (9-20); Calcium 8.8 mg/dl (8.4-10.2); Carbon Dioxide 23 mmol/L (22-30); Chloride 104 mmol/L (98-107); Estimated Creatinine Clearance 39 ml/min; Glucose 118 mg/dl (70-99); Potassium 3.4 mmol/L (3.5-5.1); Sodium 138 mmol/L (135-145); Total Bilirubin 1.2 mg/dl (0.2-1.3); Total Protein 6.1 g/dl (6.3-8.2); eGFR 46.77
[2024-04-20 21:24] VITALS: BP 182/103
--- NOTE | 2024-04-20 21:45 | HPS.HSE ---
Family Physician
-
Family Physician: Tabitha Carney
Chief Complaint
-
weakness
History of Present Illness
79 year old with PMH fot CAD, CVA,HTN, HLD, LA, anxiety, PVD, polymyalgia rheumatica presented to us with weakness. he was released from [facility] after a biliary drain. patient was too weak to get out of the car and son noticed confusion.
patient was admitted here with sepsis with acute calculous cholecystitis, possible gangrenous cholecystis as well as concern for gallbladder perforation with possible ascending cholangitis. The patient transferred over to [facility] for advanced
endoscopy, ERCP with subsequent surgical intervention planned.
at [facility], he underwent percutaneous choley. patient was discharged to home on oral abx. as per son patient was noted confused, incontinence of urine Enroute to the home. patient was took weak to get out of the car. patient denied any abdominal
pain,n,v,d. denied fever,chills, chest pain,s ob. denied OLIVAS, dizzy or syncope. denied dysuria or hematuria.
Medical History
Past Medical History
Past Medical History: Reports Other
Additional Past Medical History:
HTN
CAD
white coat syndrome
pAD
irone def anemia
depression
LA
HLD
atrial fib
copd
cva
gerd
AAA
Past Surgical History: Reports Other
Additional Past Surgical History:
CABG
cardiac ablation
colostomy
AA REPAIR
Social History
Tobacco: Non-smoker
Alcohol: None
Drug: None
Personal:
Living: With Family
Family History
Family History: Not pertinent
Allergies / Home Medications
Allergies reflects when Allergies were last updated in [facility].
Home Medications with original date entered in [facility]
Allergy/Medication List:
Allergies
Allergy/AdvReac Type Severity Reaction Status Date / Time
Benzodiazepines Allergy works Verified 04/20/24 20:04
opposite-
gets
agitated
codeine Allergy gets wild- Verified 04/20/24 20:04
hallucinations,
visual
diazepam Allergy agitated + Verified 04/20/24 20:04
nervous
Home Medications
apixaban 5 mg tablet (Eliquis) 5 mg PO BID Blood clot prevention/tx #0 tabs 05/10/23
amiodarone 400 mg tablet 400 mg PO DAILY #60 tabs 09/02/23
cholecalciferol (vitamin D3) 50 mcg (2,000 unit) tablet 50 mcg PO DAILY Supplement 09/20/23
vitamin B complex 1 tab PO DAILY Supplement 09/20/23
carvedilol 12.5 mg tablet 12.5 mg PO BID #60 tabs 09/26/23
ascorbic acid (vitamin C) 500 mg tablet (Vitamin C) 500 mg PO TID Supplement 04/15/24
budesonide 160 mcg-glycopyr 9 mcg-formot 4.8 mcg/actuation HFA inhaler ([employer]) 2 inh inhalation R BID Lung/Breathing Issues 04/15/24
cetirizine 10 mg tablet 10 mg PO DAILY Allergies 04/15/24
folic acid 1 mg tablet 1 mg PO DAILY Supplement 04/15/24
rosuvastatin 40 mg tablet 40 mg PO QPM High Cholesterol 04/15/24
zinc sulfate 50 mg zinc (220 mg) tablet 50 mg PO DAILY Supplement 04/15/24
amlodipine 10 mg tablet 10 mg PO DAILY 04/20/24
amoxicillin 875 mg-potassium clavulanate 125 mg tablet 1 tab PO BID 04/20/24
hydralazine 50 mg tablet 50 mg PO TID 04/20/24
Review of Systems
-
Constitutional: Reports No Symptoms
EENT: Reports No Symptoms
Respiratory: Reports No Symptoms
Cardiac: Reports No Symptoms
Abdomen/GI: Reports No Symptoms
: Reports No Symptoms
Musculoskeletal: Reports No Symptoms
Skin: Reports No Symptoms
Neurological: Reports No Symptoms
Endocrine: Reports No Symptoms
Hematologic/Lymphatic: Reports No Symptoms
Psych: Reports No Symptoms
Physical Exam
Vital Signs
Vital Signs
Pulse Resp Pulse Ox
87 20 93
04/20/24 20:04 04/20/24 20:04 04/20/24 20:24
Physical Exam
General: Well Developed, Well Nourished and No Apparent Distress
HEENT: NormoCephalic, Moist mucous membranes and Atraumatic
Respiratory: Clear
Cardiac: S1/S2 and Regular Rhythm; No Murmur or Rub
GI: Soft, Non Tender, Non Distended and Normal Bowel Sounds; No Organomegaly
Rectal: Deferred by Provider
Musculoskeletal: No Clubbing, No Cyanosis and No Edema
Skin: No Rash
Neuro: Nonfocal/grossly intact
Laboratory Results
-
04/20/24 20:41
04/20/24 20:41
Laboratory Results
Lactic Acid 1.3 mmol/L (0.7-2.0) 04/20/24 20:41
Total Bilirubin 1.2 mg/dl (0.2-1.3) 04/20/24 20:41
AST 75 U/L (17-59) H 04/20/24 20:41
ALT 161 U/L (0-50) H 04/20/24 20:41
Alkaline Phosphatase 277 U/L (38-126) H 04/20/24 20:41
Data Reviewed
-
Lab Data: Labs Reviewed by me
Impression/Plan
-
#generalized weakness/confusion likely post delirium
#ambulatory dysfunction chronic
-PT/OT consult
-CT head with No CT evidence for acute intracranial hemorrhage or transcortical infarct.
2. Moderate to large chronic transcortical infarct in the left occipital lobe.
3. Small chronic transcortical infarcts in the left frontal lobe and right parietal lobe.
4. Small chronic periventricular white matter infarct in the left frontal lobe.
5. Moderate bilateral temporal lobe volume loss.
6. Moderate diffuse distention of the ventricular system which appears unchanged (either ex vacuo dilatation or normal pressure communicating hydrocephalus).
-CM consulted for discharge planning.
#Recent perforated gallbladder complicated by abscess and cholangitis/choledocholithiasis
#s/p percutaneous cholecystomy
#Bacteremia E coli
-wbc 15.2, LFT trending down, ast 75,alt 161,alk 277
-continue amoxicillin from home
#anemia of chronic disease
-hgb 8.3
-no active bleeding
-ctm
#hypokalemia
-k .3.4
-oral kcl
-BMp in am
#CKD stage 3b
-cr 1.5
-ctm
#PAD/AAA/iliac disease
# 08/05/23: Bilateral femoral artery cutdown, endarterectomy with bovine patch angioplasty, retrograde balloon angioplasty, IV lithotripsy, and stenting of left iliac artery, endovascular aneurysm repair using physician modified aortic endograph
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
#Chronic memory impairment x1 year undiagnosed
#Permanent A-fib
- carvedilol 12.5 mg p.o. twice daily
- amiodarone 400 mg daily
- Eliquis 5 mg twice daily
#CAD/PCI with stenting 1993 1994
#CABG 2016
#Hx NSVT August 29, 2023
-amiodarone 400 mg daily
-Follows with [facility] cardiology
2D echo 08/11/2023: EF 55%, mild LVH, no wall abnormalities, severe biatrial enlargement no valvular disease
#HLD
- Crestor 40 mg every afternoon
#essential htn
-hydralazine continued
# Active smoker
-Former 1 pack a day x 30 years-stopped July 2023
Now smokes 3 to 4 cigarettes a day
#Former alcohol abuse stopped July 2023
#Current alcohol use
-Prior 4 beers daily until July 2023
Now drinks occasional beers had 3 beers 2 weeks ago
DVT prophylaxis
Eliquis
[2024-04-20 22:00] VITALS: BP 151/84
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
[2024-04-20 23:00] VITALS: BP 152/80
[2024-04-20 23:49] VITALS: BP 154/72
[2024-04-21] VITALS (9 sets, daily range): BP systolic 147–181; BP diastolic 73–99; PULSE 87–95; O2SAT 96–99; BMI 22.6
[2024-04-21] MEDS: KCL ELIXIR 40 MEQ PO (01:47)
[2024-04-21 02:08] LABS: Urine Albumin Trace (Neg - Trace); Urine Bilirubin Negative (Negative); Urine Character Clear (Clear); Urine Color Yellow; Urine Glucose Negative (Negative); Urine Ketone Negative (Negative); Urine Leukocyte Negative (Negative); Urine Nitrite Negative (Negative); Urine Occult Blood 2+ (Negative); Urine Urobilinogen Negative (Neg - 1+)
[2024-04-21 02:27] LABS: Urine Mucus Few
[2024-04-21 02:28] LABS: Urine Amorphous Seen; Urine Bacteria Moderate (Negative)
--- NOTE | 2024-04-21 03:58 | PTCARENOTE ---
Received pt from ED @ 0130. PT AAOx3 but forgetful, bed alarm placed. VSS. Pt pulled over to bed and states he is too weak to move. 84% on RA, 94% on 3L. Oriented to room, call johnston and plan of care.
[2024-04-21] MEDS: APRESOLINE 5 MG IV (04:29)
[2024-04-21 07:01] LABS: Hematocrit 25.8 % (39.0-52.0); Hemoglobin 8.7 g/dL (13.0-18.0); Mean Corp Hgb Conc. 33.7 g/dL (33.0-37.0); Mean Corpuscular Hgb 27.6 pg (27.0-31.0); Mean Corpuscular Volume 81.9 fL (80.0-94.0); Mean Platelet Volume 11.1 fL (7.4-10.4); Platelet Count 254 10^3/uL (130-400); Red Blood Cell Count 3.15 10^6/uL (4.70-6.10); Red Cell Dist. Width 18.2 % (11.5-14.5); White Blood Cell Count 16.7 10^3/uL (4.8-10.8)
[2024-04-21 07:39] LABS: Blood Urea Nitrogen 22 mg/dl (9-20); Calcium 8.8 mg/dl (8.4-10.2); Carbon Dioxide 24 mmol/L (22-30); Chloride 105 mmol/L (98-107); Estimated Creatinine Clearance 43 ml/min; Glucose 149 mg/dl (70-99); Potassium 3.8 mmol/L (3.5-5.1); Sodium 140 mmol/L (135-145); eGFR 50.81
[2024-04-21] MEDS: ZOSYN 50 IV ×3 (08:45→20:59)
[2024-04-21] MEDS: B COMPLEX w/VITAMIN C 1 CAPLET PO (08:45)
[2024-04-21] MEDS: COREG 12.5 MG PO ×2 (08:46→20:59)
[2024-04-21] MEDS: ZYRTEC 10 MG PO (08:47)
[2024-04-21] MEDS: NORVASC 10 MG PO (08:47)
[2024-04-21] MEDS: ELIQUIS 5 MG PO ×2 (08:47→20:59)
[2024-04-21] MEDS: ZINC 50 MG PO (08:47)
[2024-04-21] MEDS: PACERONE 400 MG PO (08:48)
[2024-04-21] MEDS: FOLVITE 1 MG PO (08:48)
[2024-04-21] MEDS: APRESOLINE 50 MG PO ×3 (08:48→21:04)
[2024-04-21] MEDS: VITAMIN D3 (cholecalciferol) 50 MCG PO (08:48)
[2024-04-21 09:16] LABS: ALT (SGPT) 143 U/L (0-50); AST (SGOT) 71 U/L (17-59); Albumin 2.8 g/dl (3.5-5.0); Alkaline Phosphatase 270 U/L (38-126); Direct Bilirubin 0.6 mg/dl (0.0-0.4); Total Bilirubin 1.2 mg/dl (0.2-1.3)
--- NOTE | 2024-04-21 11:05 | W.PN.HOSP.TC ---
Today's Communication/Plan
-
see PN
Assessment / Plan
Assessment / Plan
79yo M with PMHx of PAD s/p stents, AAA s/p repair, CKD, PMR, solitary L kidney, colectomy s/p colostomy, CVA in 2021, memory impairment, permanent Afib, HTN, CAD s/p PCI and CABG, NSVT, HLD, recent admission to with elevated LFT, found
cholecystitis with colangitis complicated by bacteremia, then transferred to [facility] for ERCP, had biliary drain placed and discharged on 04/20/24, however became progressively weak and confused, had episode of urinary incontinence on his
way home and brought back to with concern for need for rehab. found hypoxic and with possible UTI. Patient is recent smoker.
A/P:
#Acute hypoxic respiratory failure
on 4L O2
With PMHx of previous smoking - concern for COPD
No wheezing - will start bronchodilators only
wean off O2
#UTI with urinary hesitency
Ucx, Zosyn, serial bladder scan, tamsulosin
#Gangenous Cholecystitis s/p perc aashish with ascending cholangitis and bacteremia
perc aashish draining well - plan by [facility] for cholecystectomy in 4 weeks - continue to follow established outpatient plan
ERCP with stone extraction on 04/20/24
Zosyn, pending repeated Bcx
follow LFT
#Afib, permanent
#HLD
#Chronic anemia
#Essential HTN
#PMR
#Hx of CVA
#AAA s/p repair
#COlostomy
#NSVT
#Solitary L kidney with CKD stage 3a
#Essential HTN
Titrate antihypertensives to target normotension
cont rest of medications
telemetry
DVT ppx cont Eliquis
Full code
I have spent at least 59min relieving chart, test results, communication with consultants and direct patient care
Anticipated Discharge: > 48 hours
Subjective/Interval History
-
Date of Service: April 21, 2024
Objective Data
-
Labs:
Laboratory Results
04/21/24
06:46
WBC 16.7 H
Hgb 8.7 L
Hct 25.8 L
Plt Count 254
Sodium 140
Potassium 3.8
Chloride 105
Carbon Dioxide 24
BUN 22 H
Creatinine 1.4 H
Glucose 149 H
Calcium 8.8
Total Bilirubin 1.2
AST 71 H
ALT 143 H
Alkaline Phosphatase 270 H
Vital Signs:
Vital Signs
Temp Pulse Resp BP Pulse Ox
97.7 F 82 19 154/78 97
04/21/24 07:21 04/21/24 08:46 04/21/24 07:21 04/21/24 08:46 04/21/24 07:21
I&O
04/20/24 04/21/24 04/22/24
06:59 06:59 06:59
Output Total 75 / 75
Balance -75 / -75
Review of Systems
-
History Source: Patient
All other systems: Reviewed and negative
Physical Exam
-
General: No Apparent Distress
HEENT: Normocephalic
Respiratory: Clear to Auscultation and Decreased Breath Sounds
Cardiac: Regular Rhythm
GI: Soft, Nontender and Nondistended
Musculoskeletal: No Clubbing, No Cyanosis and No Edema
Neuro: Awake, Alert, Oriented and AO x 3
Psych: Calm
[2024-04-21] MEDS: SYMBICORT 160/4.5 MCG INHALER INH (11:46)
[2024-04-21] MEDS: SPIRIVA RESPIMAT 2.5 MCG INH ×3 (11:46→20:06)
[2024-04-21] MEDS: DUONEB 3 ML INH ×3 (12:19→19:53)
--- NOTE | 2024-04-21 13:02 | PHA.VAN.IN ---
Assessment
- Assessment
Renal Function: Appears similar to baseline
Concomitant Antimicrobials: piperacillin/tazobactam
Plan
- Plan
Initial / Loading Dose: 2000mg - admnistration pending
Maintenance Regimen: dosing by level
Monitoring: random 04/22 06
Pharmacokinetics Vancomycin I
- -
Patient Age: 79
Patient Sex: Male
Vancomycin Day #: 1
Indication: Pulmonary/Respiratory
Requesting Provider: Dr. Lepe
Pertinent Antimicrobial Allergies:
no pertinent antibiotic allergies
Height / Weight:
Height 5 ft 10 in
Actual Weight 71.412 kg
Pertinent Past Medical History: solitary L. kidney, CKD
- Vital Signs / Lab Results
Temp Pulse Resp BP Pulse Ox
97.8 F 77 18 149/87 99
04/21/24 11:57 04/21/24 11:57 04/21/24 11:57 04/21/24 11:57 04/21/24 11:57
Lab Results - Hematology
04/20/24 04/21/24
20:41 06:46
WBC 15.2 H 16.7 H
Lab Results - Chemistry
04/20/24 04/21/24
20:41 06:46
BUN 26 H 22 H
Creatinine 1.5 H 1.4 H
Estimated Creat Clear 39 43
Albumin 2.9 L 2.8 L
04/20/24
20:41
Lactic Acid 1.3
Lab Results - Urine
04/21/24
01:53
Urine Nitrite (Reflex) Negative
Leukocyte Esterase Rfl Negative
Urine WBC (Reflex) 3-5
Ur Squamous Epith Cells 11-15
Urine Bacteria (Reflex) Moderate A
[2024-04-21 13:53] LABS: COVID-19 Antigen Negative (Negative)
[2024-04-21] MEDS: FLOMAX 0.4 MG PO (13:57)
[2024-04-21] MEDS: VANCOCIN 540 MG IV (13:57)
--- NOTE | 2024-04-21 15:52 | CM ---
Patient was admitted under OBS and has now switched to inpatient, IMM provided and signed and placed on chart. bilingual account manager reviewed patient's chart and met with patient and spouse, patient is currently requiring 3 liters of oxygen, patient did not
have oxygen in home. Patient lives with spouse in a split level home no steps to enter, patient is independent with adl's and ambulation, patient has a walker in home.
Per son, (primary contact for patient) he would like patient to go to his home in [place], with visiting nurses, hopefully from [facility] visiting nurses. Call placed to Elizabeth at [facility] to see if they go to [facility].
Plan; Hopefully to home with [facility] visiting nurses, information on [facility] in [facility] provided to patient's spouse.
[facility] [place]
[phone]
[2024-04-21] MEDS: LASIX 40 MG IV ×2 (16:16→21:05)
[2024-04-21 16:48] LABS: NT-proBNP > 27000 pg/ml
[2024-04-21] MEDS: CRESTOR 40 MG PO (17:01)
[2024-04-21] MEDS: SYMBICORT 160/4.5 MCG INHALER 2 PUFF INH (19:53)
[2024-04-22] MEDS: ZOSYN 50 IV ×4 (01:46→20:26)
[2024-04-22 03:31] VITALS: BP 130/60
[2024-04-22 06:00] VITALS: BMI 21.8
[2024-04-22 07:35] LABS: % Basophils 0.4 % (0-2); % Eosinophils 0.3 % (0-6); % Immature Granulocytes 0.9 % (0-0.5); % Lymphocytes 4.3 % (20.5-51.1); % Monocytes 2.3 % (1.7-9.3); % Neutrophils 91.8 % (42.2-75.2); Absolute Basophils 0.1 10^3/uL (0-0.2); Absolute Immature Granulocytes 0.1 10^3/uL (0-0.05); Absolute Lymphocytes 0.6 10^3/uL (1.2-3.4); Absolute Monocytes 0.3 10^3/uL (0.1-0.6); Absolute Neutrophils 12.1 10^3/uL (1.4-6.5); Hematocrit 47.2 % (39.0-52.0); Mean Corp Hgb Conc. 33.3 g/dL (33.0-37.0); Mean Corpuscular Hgb 26.9 pg (27.0-31.0); Nucleated Red Blood Cells % 0.7 % (-); Red Blood Cell Count 5.83 10^6/uL (4.70-6.10); Red Cell Dist. Width 19.9 % (11.5-14.5); Vancomycin Random 17.4 ug/ml; White Blood Cell Count 13.2 10^3/uL (4.8-10.8)
[2024-04-22 07:50] LABS: ALT (SGPT) 114 U/L (0-50); AST (SGOT) 84 U/L (17-59); Albumin 2.8 g/dl (3.5-5.0); Alkaline Phosphatase 234 U/L (38-126); Blood Urea Nitrogen 23 mg/dl (9-20); Calcium 8.6 mg/dl (8.4-10.2); Carbon Dioxide 30 mmol/L (22-30); Chloride 98 mmol/L (98-107); Estimated Creatinine Clearance 36 ml/min; Glucose 118 mg/dl (70-99); Sodium 138 mmol/L (135-145); Total Bilirubin 1.4 mg/dl (0.2-1.3); eGFR 43.29
[2024-04-22] MEDS: SPIRIVA RESPIMAT 2.5 MCG INH (07:58)
[2024-04-22] MEDS: DUONEB 3 ML INH (07:58)
[2024-04-22] MEDS: SYMBICORT 160/4.5 MCG INHALER 2 PUFF INH ×2 (07:59→19:52)
[2024-04-22 08:02] VITALS: BP 137/61
[2024-04-22 08:13] LABS: Mean Platelet Volume 10.5 fL (7.4-10.4); Platelet Count 114 10^3/uL (130-400)
[2024-04-22] MEDS: LASIX IV (08:39)
[2024-04-22] MEDS: PACERONE 400 MG PO (08:47)
[2024-04-22] MEDS: FOLVITE 1 MG PO (08:48)
[2024-04-22] MEDS: B COMPLEX w/VITAMIN C 1 CAPLET PO (08:48)
[2024-04-22] MEDS: ZYRTEC 10 MG PO (08:48)
[2024-04-22] MEDS: APRESOLINE 50 MG PO ×3 (08:48→22:32)
[2024-04-22] MEDS: ZINC 50 MG PO (08:48)
[2024-04-22] MEDS: FLOMAX 0.4 MG PO (08:48)
[2024-04-22] MEDS: VITAMIN D3 (cholecalciferol) 50 MCG PO (08:48)
[2024-04-22] MEDS: NORVASC 10 MG PO (08:48)
[2024-04-22] MEDS: COREG 12.5 MG PO ×2 (08:48→20:26)
[2024-04-22] MEDS: ELIQUIS 5 MG PO (08:48)
[2024-04-22] MEDS: KCL 40 MEQ PO ×2 (08:50→20:26)
--- NOTE | 2024-04-22 08:55 | PHA.VAN.FU ---
Vancomycin Assessment / Plan
- Assessment
Renal Function: Stable
In the past 24 hrs, patient has been: Afebrile
Concomitant Antimicrobials: piperacillin/tazobactam
- Assessment - Therapeutic Drug Monitoring
Random Level: 17.4 - drawn ~17H after 2g loading dose
- Dosing Plan
Dosing by Level: Hold off on dosing today
- Monitoring Plan
Random Level: 04/23 0600 - may consider calculating half-life between 2 levels
- Follow Up
Pharmacy will continue to follow.
Vancomycin Follow UP
- -
Patient Age: 79
Patient Sex: Male
Vancomycin Day #: 2
Indication: Pulmonary/Respiratory
Requesting Provider: Dr. Lepe
Pertinent Antimicrobial Allergies:
no pertinent antibiotic allergies
Height / Weight:
Height 5 ft 10 in
Actual Weight 68.974 kg
Pertinent Past Medical History: solitary L. kidney, CKD
- Vital Signs / Lab Results
Temp Pulse Resp BP Pulse Ox
97.9 F 92 18 137/61 92
04/22/24 08:02 04/22/24 08:47 04/22/24 08:03 04/22/24 08:47 04/22/24 08:03
Lab Results - Hematology
04/20/24 04/21/24 04/22/24
20:41 06:46 07:04
WBC 15.2 H 16.7 H 13.2 H
Lab Results - Chemistry
04/20/24 04/21/24 04/22/24
20:41 06:46 07:04
BUN 26 H 22 H 23 H
Creatinine 1.5 H 1.4 H 1.6 H
Estimated Creat Clear 39 43 36
Albumin 2.9 L 2.8 L 2.8 L
04/20/24
20:41
Lactic Acid 1.3
Microbiology Results
04/21/24 08:12 Blood Culture - Preliminary
Blood/Venous No Growth in 24 hours- Final report to follow
04/21/24 01:53 MRSA Screen - Final
Nose No Methicillin Resistant Staphylococcus aureus isolated.
04/21/24 07:38 Blood Culture - Preliminary
Blood/Venous No Growth in 24 hours- Final report to follow
04/21/24 13:26 Influenza Types A & B (PRASAD) - Final
Nasal Swab Negative for Influenza A & B, NAAT
Negative results must be combined with clinical observations
and patient history.
Nucleic Acid Amplification test (NAAT)performed on the
[employer] platform.
Therapeutic Drug Monitoring
Random Vancomycin 17.4 ug/ml 04/22/24 07:04
--- NOTE | 2024-04-22 11:05 | PN.CDI ---
CDI
- -
CDI:
Physician Documentation Request
Admit Date: 04/21/24 10:51
Dear Doctor Roberth,
Please review the following and provide your response in the progress notes.
Clinical Indicators:
Pt admitted with weakness and cholecystitis.
04/21 Registered Dietitian Note: 'Initial assessment due to consult for weight loss.... He states that he lost 60lbs in 6 months. This is a 28% BW loss in 6 months (significant)...Amount consumed: 50% (nurse's documentation)...
Patient meets AND and ASPEN criteria for severe protein calorie malnutrition of chronic illness. He has lost 28% of his BW in 6 months and he has been consuming less than 75% of his nutrition needs for over 1 month.'
If possible, please provide in your progress notes, additional specificity regarding the severity of the malnutrition:
Severe Protein calorie Malnutrition
Other (please specify)
[place] Criteria (ACP Hospitalist 2017)
2 or more criteria must be present for either
non severe or severe malnutrition
Note that the criteria differs related to the
presence of an acute or chronic illness
Chronic Illness
Energy Intake Non Severe: <75% for >1 month
Severe: <75% for >1 month
Weight Loss Non Severe: 5% over 1 month
7.5% over 3 months
10% over 6 months
20% over 1 year
Severe: >5% over 1 month
>7.5% over 3 months
>10% over 6 months
>20% over 1 year
Additional criteria that can be used to Determine if Mild or Moderate Malnutrition (Merck Manual 2018)
Use of terms such as suspected, likely, concern for, or probable (associated with a specific diagnosis that is being evaluated, monitored, or treated as if it exists) are acceptable and can be coded in the inpatient setting, when documented at the
time of discharge.
Thank you,
Amy Richardson RN, BSN
CDI Specialist
Available via [place] [employer]
Please use your independent medical judgment in providing your response.
[2024-04-22 11:46] VITALS: BP 141/67
--- NOTE | 2024-04-22 12:27 | W.PN.HOSP.TC ---
Today's Communication/Plan
-
cont Abx
cont diuresis after repletion of potassium
Assessment / Plan
Assessment / Plan
79yo M with PMHx of PAD s/p stents, AAA s/p repair, CKD, PMR, solitary L kidney, colectomy s/p colostomy, CVA in 2021, memory impairment, permanent Afib, HTN, CAD s/p PCI and CABG, NSVT, HLD, recent admission to with elevated LFT, found
cholecystitis with colangitis complicated by bacteremia, then transferred to [facility] for ERCP, had biliary drain placed and discharged on 04/20/24, however became progressively weak and confused, had episode of urinary incontinence on his
way home and brought back to with concern for need for rehab. found hypoxic and with possible UTI. Patient is recent smoker. Managed for multifocal pneumonia, volume overload
A/P:
#Acute hypoxic respiratory failure
#Pulmonary edema
#Cannot exclude multifocal pneumonia
COVID-19 and influenza neg
Broad spectrum Abx
Stop Vanco since MRSA screen neg
Legionella and S.pneumonia urianry Ag
Lasix, follow electrolytes, daily weight, wean off O2
Echo: EF 55%, No wall motion abnormalities seen, Mild to moderate basal septal hypertrophy, Estimated pulmonary artery pressure of 35 mmHg, no change since August 2023
cardio consult
#Hypokalemia
2/2 diuresis
replete and follow
#Mild thrombocytopenia
follow CBC
Low 4T score and patient is on Eliquis - check HIT Ab, cont Eliquis
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
#Ischemic colitis, postop vascular surgery S/P colostomy
cont colostomy care
#UTI with urinary hesitancy
Ucx, Zosyn, serial bladder scan, tamsulosin
#Gangrenous Cholecystitis s/p perc aashish with ascending cholangitis and bacteremia
perc aashish draining well - plan by [facility] for drain check in 4-6 weeks - continue to follow established outpatient plan
ERCP with stone extraction on 04/20/24
Zosyn, pending repeated Bcx
follow LFT
#Afib, permanent
#HLD
#Chronic anemia
#Essential HTN
#PMR
#Hx of CVA
#AAA s/p repair
#COlostomy
#NSVT
#Solitary L kidney with CKD stage 3a
#Essential HTN
Titrate antihypertensives to target normotension
cont rest of medications
telemetry
DVT ppx cont Eliquis
Full code
I have spent at least 59min relieving chart, test results, communication with consultants and direct patient care
Anticipated Discharge: > 48 hours
Subjective/Interval History
-
Date of Service: April 22, 2024
Objective Data
-
Labs:
Laboratory Results
04/22/24 04/22/24
07:04 08:32
WBC 13.2 H Cancelled
Hgb 15.7 D Cancelled
Hct 47.2 Cancelled
Plt Count 114 L D Cancelled
Sodium 138
Potassium 3.0 L
Chloride 98
Carbon Dioxide 30
BUN 23 H
Creatinine 1.6 H
Glucose 118 H
Calcium 8.6
Total Bilirubin 1.4 H
AST 84 H
ALT 114 H
Alkaline Phosphatase 234 H
Vital Signs:
Vital Signs
Temp Pulse Resp BP Pulse Ox
98.7 F 84 17 141/67 89
04/22/24 11:46 04/22/24 11:46 04/22/24 11:46 04/22/24 11:46 04/22/24 11:46
I&O
04/21/24 04/22/24 04/23/24
06:59 06:59 06:59
Intake Total 720 / 720
Output Total 75 / 1974
Balance -75 / -75 -1255 / -1255
Review of Systems
-
History Source: Patient
All other systems: Reviewed and negative
Physical Exam
-
General: Comfortable
HEENT: Moist Mucous Membranes
Respiratory: Clear to Auscultation
Cardiac: Regular Rhythm
GI: Soft, Nontender and Nondistended
Musculoskeletal: No Clubbing, No Cyanosis, Edema, Left Upper Extrem and Edema, Right Lower Extrem
Skin: Warm
Neuro: Awake, Alert, Oriented and AO x 3
Psych: Calm
--- NOTE | 2024-04-22 12:30 | CM ---
TC to primary contact Van, he was agreeable to his father going to Skilled rehab.
TC to patients spouse, discussed PT/OT recommendations-
Per Spouse she does not want Van as the primary contact and would prefer Fabiano.
Per spouse they do not want skilled rehab and plan on taking home home with [facility]ri PHAN.
Patient was in [facility] in past and spouse promised patient he would not go back to a residential.
Spouse wanted CM to speak with Fabiano.
TC to Son Fabiano [phone], per son he is in agreement with home with VN, does not want skilled rehab.
Per son they have not told patient yet that he will be going to his sons house instead of home.
Son or mother will let the patient know.
Son Fabiano lives in a townhouse with 1 step to enter and will do a first floor set up, powder room on 1st floor.
Son would prefer home with VN, Capri chosen.
Address: [address], [place] [address]
Contact will be Fabiano [phone] or his spouse Leigh [phone]
Son aware that if patient not in agreement or plan changes to notify CM.
Per Son they cannot afford private caregivers. He and his spouse will provide care.
Referral entered in [facility].
Plan: home with VN
[2024-04-22 12:58] LABS: Hemoglobin 15.7 g/dL (13.0-18.0)
[2024-04-22 13:01] LABS: % Basophils 0.1 % (0-2); % Eosinophils 0.3 % (0-6); % Immature Granulocytes 0.8 % (0-0.5); % Lymphocytes 4.1 % (20.5-51.1); % Monocytes 2.7 % (1.7-9.3); Absolute Eosinophils 0.1 10^3/uL (0-0.7); Absolute Immature Granulocytes 0.1 10^3/uL (0-0.05); Absolute Lymphocytes 0.7 10^3/uL (1.2-3.4); Absolute Monocytes 0.5 10^3/uL (0.1-0.6); Absolute Neutrophils 15.5 10^3/uL (1.4-6.5); Hematocrit 22.3 % (39.0-52.0); Hemoglobin 7.5 g/dL (13.0-18.0); Mean Corp Hgb Conc. 33.6 g/dL (33.0-37.0); Mean Corpuscular Hgb 27.3 pg (27.0-31.0); Mean Corpuscular Volume 81.1 fL (80.0-94.0); Mean Platelet Volume 10.7 fL (7.4-10.4); Nucleated Red Blood Cells % 0.3 % (-); Platelet Count 263 10^3/uL (130-400); Red Blood Cell Count 2.75 10^6/uL (4.70-6.10); Red Cell Dist. Width 18.4 % (11.5-14.5); White Blood Cell Count 16.9 10^3/uL (4.8-10.8)
[2024-04-22 13:04] LABS: Blood Urea Nitrogen 25 mg/dl (9-20); Calcium 8.5 mg/dl (8.4-10.2); Carbon Dioxide 29 mmol/L (22-30); Chloride 97 mmol/L (98-107); Estimated Creatinine Clearance 36 ml/min; Glucose 158 mg/dl (70-99); Sodium 135 mmol/L (135-145); eGFR 43.29
--- NOTE | 2024-04-22 15:08 | CON.CAR ---
Addendum entered and electronically signed by Rasta Harris MD 04/22/24 17:24:
I saw and examined the patient.
The INFORMATION TECH's note was reviewed and I agree with the note.
Comment: 79-year-old male with tobacco abuse and ETOH abuse, chronic CAD (no angina since CABG 2016), permanent AFib on Eliquis, PAD, AAA, and prior strokes (11/2021, 04/2023), who presents to the ER for weakness. He was just discharged from [facility]
04/20/24 and when he got home he was unable to get out of the car, so family brought him to the ER. He is admitted to the hospitalist service and we are consulted for HFpEF.
- Diuresis today possible transition to oral tomorrow
- he does not appear to ahve a large amount of volume overload
- he is very weak
- His SOB most likely related to lung disease
Original Note:
Consultation
Consultation Request
Date/Time Consultation Requested: 04/22/24 12:30p
Date/Time Consultation Performed: 04/22/24 2:30p
Requesting Provider: Dr. Lepe
Performing Provider: BEBA [place] for Dr. Harris
Reason for Consultation: HFpEF
Medical History
-
Chief Complaint: sob
History of Present Illness:
Mr. Guajardo is an 79-year-old male with tobacco abuse and ETOH abuse, chronic CAD (no angina since CABG 2016), permanent AFib on Eliquis, PAD, AAA, and prior strokes (11/2021, 04/2023), who presents to the ER for weakness. He was just discharged from
[facility] 04/20/24 and when he got home he was unable to get out of the car, so family brought him to the ER. He is admitted to the hospitalist service and we are consulted for HFpEF. Interestingly, his weight is the lowest its ever been. He is being
treated for PNA with IV antibiotics per hospitalist.
Past Medical History
Past Medical History: Other (as above)
Social History
Tobacco: Smoker
Alcohol: Occasional
Personal:
Living: With Family
Family History
Family History: Reviewed & Not Pertinent
Allergies / Home Medications
Allergy/AdvReac Type Severity Reaction Status Date / Time
Benzodiazepines Allergy works Verified 04/20/24 20:04
opposite-
gets
agitated
codeine Allergy gets wild- Verified 04/20/24 20:04
hallucinations,
visual
diazepam Allergy agitated + Verified 04/20/24 20:04
nervous
�Medication �Instructions �Recorded �Confirmed �Type
apixaban 5 mg tablet (Eliquis) 5 mg PO BID Blood clot 05/10/23 04/20/24 Rx
prevention/tx #0 tabs
amiodarone 400 mg tablet 400 mg PO DAILY #60 tabs 09/02/23 04/20/24 Rx
cholecalciferol (vitamin D3) 50 50 mcg PO DAILY Supplement 09/20/23 04/20/24 History
mcg (2,000 unit) tablet
vitamin B complex 1 tab PO DAILY Supplement 09/20/23 04/20/24 History
carvedilol 12.5 mg tablet 12.5 mg PO BID #60 tabs 09/26/23 04/20/24 Rx
ascorbic acid (vitamin C) 500 mg 500 mg PO TID Supplement 04/15/24 04/20/24 History
tablet (Vitamin C)
budesonide 160 mcg-glycopyr 9 2 inh inhalation R BID 04/15/24 04/20/24 History
mcg-formot 4.8 mcg/actuation HFA Lung/Breathing Issues
inhaler (Breztri Aerosphere)
cetirizine 10 mg tablet 10 mg PO DAILY Allergies 04/15/24 04/20/24 History
folic acid 1 mg tablet 1 mg PO DAILY Supplement 04/15/24 04/20/24 History
rosuvastatin 40 mg tablet 40 mg PO QPM High Cholesterol 04/15/24 04/20/24 History
zinc sulfate 50 mg zinc (220 mg) 50 mg PO DAILY Supplement 04/15/24 04/20/24 History
tablet
amlodipine 10 mg tablet 10 mg PO DAILY 04/20/24 04/20/24 History
amoxicillin 875 mg-potassium 1 tab PO BID 04/20/24 04/20/24 History
clavulanate 125 mg tablet
hydralazine 50 mg tablet 50 mg PO TID 04/20/24 04/20/24 History
Review of Systems
-
History Source: Patient
All other systems: Negative unless noted
Physical Exam
Vital Signs
Temp Pulse Resp BP Pulse Ox
98.7 F 84 17 141/67 89
04/22/24 11:46 04/22/24 11:46 04/22/24 11:46 04/22/24 11:46 04/22/24 11:46
Lab Results
04/22/24 12:42
Qxt-C-Sxgluojtsyr Pept > 15903 pg/ml 04/21/24 06:46
Physical Exam
General: No Apparent Distress and Other (unkempt)
HEENT: Normocephalic and Anicteric
Respiratory: Clear and Non Labored Respirations
Cardiac: S1/S2 and Irregular Rhythm
Breast: Deferred by me
GI: Soft, Non Distended, Normal Bowel Sounds and Other (biliary drain)
Rectal: Deferred by Provider
Genito-urinary: No Costovertebral Tender
Musculoskeletal: No Edema
Skin: Warm and Dry
Neuro: AO x 3
Hematologic/Lymphatic: No Lymphadenopathy
Psych: Calm
Impression / Plan
-
SOB - multi-factorial with HFpEF and PNA.
- agree with IV diuresis and IV antibiotics.
- monitor renal function closely, daily weights.
- echo 04/21/24 as below.
Permanent Afib - rate controlled on Amiodarone and Coreg.
- Eliquis 5mg BID, needs to reduced to 2.5mg BID since age 79 and creatinine 1.6.
Acute calculous cholecystitis - with possible gangrenous cholecystitis, suspicion of gallbladder perforation, pericholecystic abscess and choledocholithiasis with possible ascending cholangitis.
- transferred to [facility] 04/16/2024.
- s/p biliary tree stents then d/c home 04/20/24.
- follow up with GI.
PAD - with AAA, CVA x 2.
- stable on Crestor and Eliquis.
Tobacco abuse - still smoking.
- smoking cessation reviewed with patient.
Data Reviewed
-
EKG: Tracing Personally Visualized and interpreted (Afib 81 bpm)
Radiology: Report Reviewed by me (CXR: diffuse PNA possible, pulmonary edema)
Medical Tests (Nuc Med, Echo etc): Report Reviewed by me (echo 04/21/24: EF 55%, no RWMA, mild/mod basal septal hypertrophy, normal RV size/function, mild MR.)
Labs: Labs Reviewed by me
Old Records: Reviewed
[2024-04-22 15:28] VITALS: BP 149/78
[2024-04-22] MEDS: KCL 270 MEQ IV (16:22)
[2024-04-22] MEDS: CRESTOR 40 MG PO (17:17)
[2024-04-22 19:11] LABS: Hematocrit 23.1 % (39.0-52.0); Hemoglobin 7.8 g/dL (13.0-18.0)
[2024-04-22 19:44] VITALS: BP 139/66
[2024-04-22] MEDS: SPIRIVA RESPIMAT 2.5 MCG 2 PUFF INH (19:52)
[2024-04-22] MEDS: ELIQUIS 2.5 MG PO (20:26)
[2024-04-22] MEDS: VIBRAMYCIN 100 MG PO (20:26)
[2024-04-22 23:02] VITALS: BP 141/63
[2024-04-23] VITALS (9 sets, daily range): BP systolic 113–143; BP diastolic 53–77; BMI 23.2
[2024-04-23] MEDS: ZOSYN 50 IV ×4 (03:01→20:42)
[2024-04-23] MEDS: TYLENOL 650 MG PO (03:05)
[2024-04-23 07:39] LABS: Hematocrit 19.8 % (39.0-52.0); Hemoglobin 6.7 g/dL (13.0-18.0); Mean Corp Hgb Conc. 33.8 g/dL (33.0-37.0); Mean Corpuscular Hgb 27.8 pg (27.0-31.0); Mean Corpuscular Volume 82.2 fL (80.0-94.0); Platelet Count 242 10^3/uL (130-400); Red Blood Cell Count 2.41 10^6/uL (4.70-6.10); Red Cell Dist. Width 18.4 % (11.5-14.5); White Blood Cell Count 16.5 10^3/uL (4.8-10.8)
[2024-04-23] MEDS: NSS (PRESERVATIVE FREE) 20 ML IV (07:55)
[2024-04-23] MEDS: PROTONIX IV 80 MG IV (07:55)
[2024-04-23] MEDS: SPIRIVA RESPIMAT 2.5 MCG 2 PUFF INH ×2 (08:00→20:01)
[2024-04-23] MEDS: SYMBICORT 160/4.5 MCG INHALER 2 PUFF INH ×2 (08:00→20:01)
[2024-04-23 08:03] LABS: ALT (SGPT) 78 U/L (0-50); AST (SGOT) 74 U/L (17-59); Albumin 2.2 g/dl (3.5-5.0); Alkaline Phosphatase 178 U/L (38-126); Blood Urea Nitrogen 26 mg/dl (9-20); Calcium 8.4 mg/dl (8.4-10.2); Carbon Dioxide 27 mmol/L (22-30); Chloride 101 mmol/L (98-107); Estimated Creatinine Clearance 36 ml/min; Glucose 111 mg/dl (70-99); LDH 366 U/L (120-246); Potassium 3.3 mmol/L (3.5-5.1); Sodium 136 mmol/L (135-145); Total Bilirubin 1.1 mg/dl (0.2-1.3); Total Protein 5.1 g/dl (6.3-8.2); eGFR 40.25
[2024-04-23] MEDS: PROTONIX 100 IV (08:10)
[2024-04-23] MEDS: COREG 12.5 MG PO ×2 (08:11→20:42)
[2024-04-23] MEDS: PACERONE 400 MG PO (08:11)
[2024-04-23] MEDS: VIBRAMYCIN 100 MG PO ×2 (08:11→20:42)
[2024-04-23] MEDS: APRESOLINE 50 MG PO ×3 (08:11→20:43)
[2024-04-23] MEDS: FOLVITE 1 MG PO (08:11)
[2024-04-23] MEDS: ZINC 50 MG PO (08:11)
[2024-04-23] MEDS: B COMPLEX w/VITAMIN C 1 CAPLET PO (08:11)
[2024-04-23] MEDS: ZYRTEC 10 MG PO (08:11)
[2024-04-23] MEDS: FLOMAX 0.4 MG PO (08:11)
[2024-04-23] MEDS: VITAMIN D3 (cholecalciferol) 50 MCG PO (08:11)
[2024-04-23] MEDS: NORVASC 10 MG PO (08:11)
[2024-04-23 08:12] LABS: Total Iron Binding Capacity 168 ug/dl (261-462)
[2024-04-23 08:14] LABS: Iron < 20 ug/dl (49-181)
[2024-04-23 08:44] LABS: Reticulocyte Count 2.3 % (0.4-2.8)
[2024-04-23 08:51] LABS: Folate 15.7 ng/ml (2.76-20); Vitamin B12 > 1000 pg/ml (239-931)
[2024-04-23 09:08] LABS: % Basophils 0.1 % (0-2); % Eosinophils 0.2 % (0-6); % Immature Granulocytes 1.1 % (0-0.5); % Monocytes 2.8 % (1.7-9.3); % Neutrophils 90.8 % (42.2-75.2); Absolute Immature Granulocytes 0.2 10^3/uL (0-0.05); Absolute Lymphocytes 0.8 10^3/uL (1.2-3.4); Absolute Monocytes 0.5 10^3/uL (0.1-0.6); Nucleated Red Blood Cells % 0.2 % (-)
--- NOTE | 2024-04-23 09:35 | W.PN.CD ---
Today's Communication / Plan
-
- BNP elevated, but appears to be grossly compensated on examination; now with significant anemia (hemoglobin 6.7%), agree with holding diuretic for now.
- Eliquis needs to be held as patient has a hemoglobin of 6.7 and is heme positive.
- Continue amiodarone.
- Recommend GI consultation.
Impression / Plan
-
SOB - multi-factorial with acute on chronic HFpEF and PNA.
- LVEF 55% on Echocardiogram 04/21/2024.
- BNP elevated, but appears to be grossly compensated on examination; now with significant anemia (hemoglobin 6.7%), agree with holding diuretic for now.
- IV antibiotics as per primary team.
- Continue to monitor renal function closely, daily weights.
- echo 04/21/24 as below.
Permanent Afib - rate controlled on Amiodarone and Coreg.
- Eliquis needs to be held as patient has a hemoglobin of 6.7 and is heme positive.
NSVT- infrequent, very brief runs noted on telemetry.
-Conservative cardiac management.
-Continue amiodarone.
Anemia:
-Hemoglobin 6.7.
-Holding Eliquis as above.
-Recommend GI consultation.
Acute calculous cholecystitis - with possible gangrenous cholecystitis, suspicion of gallbladder perforation, pericholecystic abscess and choledocholithiasis with possible ascending cholangitis.
- transferred to [facility] 04/16/2024.
- s/p biliary tree stents then d/c home 04/20/24.
- follow up with GI.
PAD - with AAA, CVA x 2.
- stable on Crestor and Eliquis.
Tobacco abuse - still smoking.
- smoking cessation reviewed with patient.
Physical Exam
Vital Signs/Labs
Vital Signs
Temp Pulse Resp BP Pulse Ox
97.6 F 75 18 132/77 94
04/23/24 08:00 04/23/24 08:33 04/23/24 08:33 04/23/24 08:00 04/23/24 08:33
04/22/24 04/23/24 04/24/24
06:59 06:59 06:59
Actual Weight 68.974 kg 73.482 kg
04/23/24 06:24
04/23/24 06:24
04/21/24
06:46
Aku-E-Wfnotujxkjq Pept > 90574
Physical Exam
Constitutional: No acute distress and Comfortable
EENT: Anicteric
Cardiovascular: Pedal edema is absent, Systolic murmur absent, Rhythm/rate is irregular and S1S2 is normal
Respiratory: Respiratory effort normal and Lungs clear to auscul.
GI: Soft
Neuro/Psych: Other (Somnolent, but arousable)
Other: Skin (warm)
Data Reviewed
-
Date of Service: April 23, 2024
EKG: Tracing Personally Visualized and interpreted (Telemetry: A-fib)
Labs: Labs Reviewed by me
--- NOTE | 2024-04-23 11:45 | CON.GI ---
Addendum entered and electronically signed by Paty Zamora DO 04/23/24 20:23:
Patient seen and examined independently of MARINE ENGINE MACHINIST. I agree with her note with my additions below
Avery is a complicated 78-year-old male with multiple comorbidities including atrial fibrillation on Eliquis, prior stroke, significant vascular disease who also underwent an elective bilateral femoral endarterectomy and vascular intervention for
AAA with unfortunate subsequent ischemic colitis requiring open left colectomy and distal transverse colostomy with prolonged recovery. He was just here last week with gangrenous cholecystitis and suspicion for gallbladder perforation abscess and
choledocholithiasis with cholangitis. We do not have his records but I percutaneous cholecystostomy was placed. Upon discharge from [place] on 04/20/2024 he became confused in the car ride home, delirious had an episode of urinary incontinence
and was brought back to [facility] with concern for need for rehab. He was found hypoxemic with a possible UTI and pneumonia. We were called today on 04/23/2024 because of black liquid in his ostomy with a drop in hemoglobin. On
admission he was 8.3 yesterday on's 04/22 7.5 and on 04/23 down to 6.7.
He did receive 1 unit of blood and responded to 7.4. His Eliquis has been on hold. He denies any GI symptoms including no lightheadedness or dizziness. His blood pressure is 137/62 heart rate of 81. No dysphagia heartburn nausea vomiting
abdominal pain. He does not want to answer many questions and states he is cold. He is alert and awake
On exam his abdomen is soft, nontender and his ostomy bag is leaking small amount of liquid melena.
# GI bleed -hemodynamically stable on Eliquis
--- Etiology could be esophagitis, ulcer, angioectasia, neoplasm -patient is also on doxycycline which can be very irritating. Make sure to sit upright after taking doxycycline and wash it down with plenty of liquids
-- It does not appear he was on as an outpatient but it is possible
-- PPI BID, hold Eliquis, status post 1 unit on 04/23/2024
-- Patient on full liquids
-- Get records from [place]
--Monitor. Hopefully bleeding will stop with holding Eliquis and PPI BID
Original Note:
Consultation
-
Date/Time Consultation Requested: 04/23/24 0830
Date/Time Consultation Performed: 04/23/24 1145
Requesting Provider: Jose Luis Lepe MD
Performing Provider: BEBA Green, Paty Zamora DO
Reason for Consultation: anemia with heme + stool
Medical History
Chief Complaint / HPI
Chief Complaint: heme + stool
History of Present Illness:
This is a 78 year old male with hx CAD (s/p CABG x3), atrial fibrillation (on Eliquis), PAD, COPD, CKD, tobacco use disorder with GI evaluation in 07/2023 with coffee ground emesis after pt had elective bilateral femoral endarterectomy and vascular
intervention for AAA with subsequent ischemic colitis requiring open left colectomy and distal transverse colostomy with prolonged recovery. He was admitted last week with concern for sepsis related to acute calculus cholecystis possible gangrenous
cholecystitis as well as suspicion fo GB perf, abscess and choledocholithiasis with cholangitis. He was transferred to [place] as no advanced availability as concern for sepsis with need for pressors with ? GI intervention and aashish tube
placement. He now presents with weakness, confusion, incontinence with hypoxemia, pulm edema and concern for possible PNA./ Now asked to see for drop in hbg and dark stools. Labs notable for hbg 6.7 with drop from 7-8 range, WBC up to 16.9,
platelet 114 with normalization, INR 1.8( 04/16) but on chronic Eliquis, K 3.3, creat 1.7 with CKD and elevated LFT's with marked improvement since last admission.
At this time patient admits to feeling cold but denies any other GI issues but drifts off in conversation without answering all questions. Endoscopy in [address] Phillips showed LA Grade B esophagitis and chronic gastritis. Biopsies were
negative for EoE, dysplasia, H pylori, or celiac. Colonoscopy in 2018 showed sigmoid diverticulosis but was otherwise normal.
Past Medical History
Past Medical History: Arrhythmias (afib), GERD, HTN, Hypercholesterolemia, Renal Failure (CKD) and Other ( CAD (s/p CABG x3), atrial fibrillation (on Eliquis), PAD, COPD, tobacco use disorder, colon polyps, ? recent ERCP at [place], anemia)
Past Surgical History: Other (Cardioversion, cardiac ablation, CABG x 3, Bilateral femoral artery cutdown, endarterectomy with bovine patch angioplasty, retrograde balloon angioplasty, IV lithotripsy, and stenting left iliac artery, endovascular
aneurysm repair using physician modified aortic endograph, left colectomy w/ ostomy)
Social History
Tobacco: Former Smoker (quit 1 month ago)
Alcohol: Former
Drug: None
Living: With Family
Employment: Retired
Family History
Family History: Unable to Obtain
Allergies / Home Medications
Allergy/AdvReac Type Severity Reaction Status Date / Time
Benzodiazepines Allergy works Verified 04/20/24 20:04
opposite-
gets
agitated
codeine Allergy gets wild- Verified 04/20/24 20:04
hallucinations,
visual
diazepam Allergy agitated + Verified 04/20/24 20:04
nervous
�Medication �Instructions �Recorded
apixaban 5 mg tablet (Eliquis) 5 mg PO BID Blood clot 05/10/23
prevention/tx #0 tabs
amiodarone 400 mg tablet 400 mg PO DAILY #60 tabs 09/02/23
cholecalciferol (vitamin D3) 50 50 mcg PO DAILY Supplement 09/20/23
mcg (2,000 unit) tablet
vitamin B complex 1 tab PO DAILY Supplement 09/20/23
carvedilol 12.5 mg tablet 12.5 mg PO BID #60 tabs 09/26/23
ascorbic acid (vitamin C) 500 mg 500 mg PO TID Supplement 04/15/24
tablet (Vitamin C)
budesonide 160 mcg-glycopyr 9 2 inh inhalation R BID 04/15/24
mcg-formot 4.8 mcg/actuation HFA Lung/Breathing Issues
inhaler (Breztri Aerosphere)
cetirizine 10 mg tablet 10 mg PO DAILY Allergies 04/15/24
folic acid 1 mg tablet 1 mg PO DAILY Supplement 04/15/24
rosuvastatin 40 mg tablet 40 mg PO QPM High Cholesterol 04/15/24
zinc sulfate 50 mg zinc (220 mg) 50 mg PO DAILY Supplement 04/15/24
tablet
amlodipine 10 mg tablet 10 mg PO DAILY 04/20/24
amoxicillin 875 mg-potassium 1 tab PO BID 04/20/24
clavulanate 125 mg tablet
hydralazine 50 mg tablet 50 mg PO TID 04/20/24
Review of Systems
-
Unable to obtain full review of systems at this time due to: Other (pt drifting off in conversation)
History Source: Patient
Constitutional: Reports Fever (low grade 100.8)
EENT: Reports No Symptoms
Respiratory: Reports No Symptoms
Cardiac: Reports No Symptoms
Abdomen/GI: Reports Black Stools (dark stools)
: Reports No Symptoms
Musculoskeletal: Reports No Symptoms
Skin: Reports No Symptoms
Neurological: Reports Weakness
Endocrine: Reports No Symptoms
Hematologic/Lymphatic: Reports Bleeding
Vital Signs
Temp Pulse Resp BP Pulse Ox
97.6 F 75 18 132/77 94
04/23/24 08:00 04/23/24 08:33 04/23/24 08:33 04/23/24 08:00 04/23/24 08:33
Physical Exam
Exam
General: Other (thin appearing)
HEENT: Normocephalic
Respiratory: Clear
Cardiac: Regular Rhythm
GI: Soft, Distended (mild) and Other (biliary drain in place )
Rectal: Other (ostomy with dark liquid black stool heme +)
Musculoskeletal: No Clubbing and No Cyanosis
Skin: Warm and Dry
Neuro: Other (sleepy -- awakens to a few questions then drifts off)
Psych: Calm
Results
WBC 16.5 10^3/uL (4.8-10.8) H 04/23/24 06:24
Hgb 6.7 g/dL (13.0-18.0) L* 04/23/24 06:24
Hct 19.8 % (39.0-52.0) L* 04/23/24 06:24
MCV 82.2 fL (80.0-94.0) 04/23/24 06:24
Plt Count 242 10^3/uL (130-400) 04/23/24 06:24
Absolute Neuts (auto) 15.0 10^3/uL (1.4-6.5) H 04/23/24 06:24
Sodium 136 mmol/L (135-145) 04/23/24 06:24
Potassium 3.3 mmol/L (3.5-5.1) L 04/23/24 06:24
Chloride 101 mmol/L (98-107) 04/23/24 06:24
Carbon Dioxide 27 mmol/L (22-30) 04/23/24 06:24
BUN 26 mg/dl (9-20) H 04/23/24 06:24
Creatinine 1.7 mg/dL (0.7-1.3) H 04/23/24 06:24
Calcium 8.4 mg/dl (8.4-10.2) 04/23/24 06:24
Total Bilirubin 1.1 mg/dl (0.2-1.3) 04/23/24 06:24
AST 74 U/L (17-59) H 04/23/24 06:24
ALT 78 U/L (0-50) H 04/23/24 06:24
Alkaline Phosphatase 178 U/L (38-126) H 04/23/24 06:24
Diagnostic Image Results:
04/23/24 CT Chest W/o Iv Contrast
1. Severe groundglass opacity is seen bilaterally, most pronounced within the upper lung zones. There is fine reticular interstitial thickening and bronchiectasis, also most pronounced within the upper lobes on each side.
2. Differential diagnosis includes severe interstitial pneumonia, worsening interstitial fibrosis compared to 08/14/2023, an atypical pulmonary edema.
3. Mild bibasilar subsegmental atelectasis. Tiny bilateral pleural effusions.
4. Asymmetric atrophy involving the left kidney.
04/22/24 CT Abd/pel Without Iv Or Oral
1).The tip of the cholecystotomy tube is in the decompressed gallbladder
There is a small amount of gas in the gallbladder
2). There is new interstitial airway disease in the basilar portions of the right middle lobe and lingula and to a lesser extent in the basilar portions of both lower lobes suggesting interstitial pneumonia and associated with minimal bilateral
pleural effusions
3). Moderate left-sided renal cortical atrophy and bilateral renal cysts
4). A stable 1.5 cm left adrenal adenoma
5). Hepatic cysts
6). Stable aortobiiliac graft
04/21/24 Chest - 2 Views
Pulmonary findings suggest pulmonary edema. Diffuse pneumonia is also possible.
04/16/24 MR Abdomen Without Contrast
1. SEVERE ACUTE CALCULUS CHOLECYSTITIS (possibly gangrenous cholecystitis).
2. Suspicion for gallbladder perforation and a 2.7 cm pericholecystic abscess.
3. Severe right upper quadrant pericholecystic edema and moderate nonloculated fluid.
4. CHOLEDOCHOLITHIASIS in the distal common bile duct.
5. Severe left renal atrophy (probably secondary to chronic ischemia).
6. Small volume of ascites.
7. Left anterior abdominal wall colostomy.
8. Aortobiiliac endograft in place.
9. 4.1 cm left adrenal adenoma.
10. Mild to moderate cardiomegaly.
11. Chronic multilevel vertebral body endplate insufficiency fractures in the lumbar spine.
04/21/24 Chest - 2 Views
Pulmonary findings suggest pulmonary edema. Diffuse pneumonia is also possible.
04/20/24 CT Head W/o Iv Contrast
1. No CT evidence for acute intracranial hemorrhage or transcortical infarct.
2. Moderate to large chronic transcortical infarct in the left occipital lobe.
3. Small chronic transcortical infarcts in the left frontal lobe and right parietal lobe.
4. Small chronic periventricular white matter infarct in the left frontal lobe.
5. Moderate bilateral temporal lobe volume loss.
6. Moderate diffuse distention of the ventricular system which appears unchanged (either ex vacuo dilatation or normal pressure communicating hydrocephalus).
Prior GI Procedures:
EGD: 11/2017 phillips - LA Grade B reflux esophagitis. Biopsied.
- Chronic gastritis. Biopsied.
- Normal third portion of the duodenum. Biopsied.
Colonoscopy: 11/2017 Phillips - Diverticulosis in the sigmoid colon.
- The examination was otherwise normal.
- No specimens collected.
Assessment / Plan
-
This is a 78 year old male with hx CAD (s/p CABG x3), atrial fibrillation (on Eliquis), PAD, COPD, CKD, tobacco use disorder with GI evaluation in 07/2023 with coffee ground emesis after pt had elective bilateral femoral endarterectomy and vascular
intervention for AAA with subsequent ischemic colitis requiring open left colectomy and distal transverse colostomy with prolonged recovery. He was admitted last week with concern for sepsis related to acute calculus cholecystis possible gangrenous
cholecystitis as well as suspicion fo GB perf, abscess and choledocholithiasis with cholangitis. He was transferred to [place] as no advanced availability as concern for sepsis with need for pressors with ? GI intervention and aashish tube
placement. He now presents with weakness, confusion, incontinence with hypoxemia, pulm edema and concern for possible PNA./ Now asked to see for drop in hbg and dark stools. Labs notable for hbg 6.7 with drop from 7-8 range, WBC up to 16.9,
platelet 114 with normalization, INR 1.8( 04/16) but on chronic Eliquis, K 3.3, creat 1.7 with CKD and elevated LFT's with marked improvement since last admission.
-dark heme + stool
-anemia acute on chronic
-concern for hypoxemia/PNA/CHF
-recent acute calculus cholecystitis /possible gangrenous GB with suspected perf, choledocholithiasis, s/p aashish tube and ? intervention at [place] 04/2024
-leukocytosis
other med problems:
-afib on Eliquis prior to admission/prior SVT/ablation
-HTN
-hyperlipidemia
-CAD/CABG
-PAD with prior b/l fem endarterectomy and vascular intervention for AAA with subsequent ischemic colitis requiring left colectomy with colostomy 07/2023
-Depression
Atrial fibrillation/SVT/ablation.
-COPD tobacco abuse
-prior CVA
-GERD
-Diverticulosis
PLAN:
etiology of anemia and heme + stool related recent GI intervention at [place] vs other
will obtain records of prior procedure with ? stent placement , ? sphincterotomy
LFT's marked improvement with drainage and ERCP
hbg not far off baseline 7-8 now 6.7
remains on PPI gtt
Eliquis remains on hold
currently no need for urgent EGD-- agree with transfuse and watch with other med issues and lethargy if signs of active bleeding consider EGD if medically stable to proceed
cont Rx for PNA and CHF per medical team -- abx, nebs etc
on clear diet--ok to advance -- reviewed with speech safety of diet with lethargy -- pt refused speech therapy and diet modification in past. Will trial full liquid diet. If issue consider repeat speech eval if pt agreeable
-
-
Thank you for consultation and allowing me to participate in the patient's care. Please call the airport traffic controller GI physician during the after hours with any questions or concerns.
[2024-04-23 12:15] LABS: Hematocrit 22.1 % (39.0-52.0); Hemoglobin 7.4 g/dL (13.0-18.0)
--- NOTE | 2024-04-23 12:19 | CON.PUL ---
Consultation
Consultation Request
Date/Time Consultation Requested: 04/23/2024-12:30 PM
Date/Time Consultation Performed: 04/23/2020 4-12:30 PM
Requesting Provider: Hospitalist
Performing Provider: Dr. Franco
Reason for Consultation: Shortness of breath and pneumonia
Medical History
-
Chief Complaint: Shortness of breath
History of Present Illness:
79-year-old male with a history of CAD, CVA, hypertension, hyperlipidemia, anxiety, recently released from [facility] after biliary drainage and admitted here with sepsis and acute calculus cholecystitis and transferred to [place] where he
underwent percutaneous cholecystostomy and discharged on oral antibiotics-admitted 04/20/2024 with generalized weakness and delirium and pulmonary consulted on 04/23/2024 for possible pneumonia.. The patient complains of some mild shortness of
breath. He denies any chest pain, chest tightness, chest congestion, productive cough, pleurisy, and denies any abdominal pain, nausea, increased leg swelling.
Past Medical History
Past Medical History: None (Hypertension. Hyperlipidemia. CAD/CABG. PAD. Anemia. Depression. Atrial fibrillation/ablation. COPD. CVA. GERD. AAA. Colostomy. AAA repair.)
Social History
Tobacco: Former Smoker ( [id number]-quit 1 month ago)
Alcohol: None
Drug: None
Living: With Family
Occupational Exposures: No known asbestos exposure
Environmental Exposures: No known tuberculosis exposure
Family History
Family History: Reviewed & Not Pertinent
Allergies / Home Medications
Allergies
Allergy/AdvReac Type Severity Reaction Status Date / Time
Benzodiazepines Allergy works Verified 04/20/24 20:04
opposite-
gets
agitated
codeine Allergy gets wild- Verified 04/20/24 20:04
hallucinations,
visual
diazepam Allergy agitated + Verified 04/20/24 20:04
nervous
Home Medications
�Medication �Instructions �Recorded �Confirmed �Last Taken �Type
apixaban 5 mg tablet (Eliquis) 5 mg PO BID Blood clot 05/10/23 04/20/24 08/02/23 11:00 Rx
prevention/tx #0 tabs 1 tab
amiodarone 400 mg tablet 400 mg PO DAILY #60 tabs 09/02/23 04/20/24 Unknown Rx
cholecalciferol (vitamin D3) 50 50 mcg PO DAILY Supplement 09/20/23 04/20/24 Unknown History
mcg (2,000 unit) tablet
vitamin B complex 1 tab PO DAILY Supplement 09/20/23 04/20/24 Unknown History
carvedilol 12.5 mg tablet 12.5 mg PO BID #60 tabs 09/26/23 04/20/24 Unknown Rx
ascorbic acid (vitamin C) 500 mg 500 mg PO TID Supplement 04/15/24 04/20/24 Unknown History
tablet (Vitamin C)
budesonide 160 mcg-glycopyr 9 2 inh inhalation R BID 04/15/24 04/20/24 Unknown History
mcg-formot 4.8 mcg/actuation HFA Lung/Breathing Issues
inhaler (Breztri Aerosphere)
cetirizine 10 mg tablet 10 mg PO DAILY Allergies 04/15/24 04/20/24 Unknown History
folic acid 1 mg tablet 1 mg PO DAILY Supplement 04/15/24 04/20/24 Unknown History
rosuvastatin 40 mg tablet 40 mg PO QPM High Cholesterol 04/15/24 04/20/24 Unknown History
zinc sulfate 50 mg zinc (220 mg) 50 mg PO DAILY Supplement 04/15/24 04/20/24 Unknown History
tablet
amlodipine 10 mg tablet 10 mg PO DAILY 04/20/24 04/20/24 Unknown History
amoxicillin 875 mg-potassium 1 tab PO BID 04/20/24 04/20/24 Unknown History
clavulanate 125 mg tablet
hydralazine 50 mg tablet 50 mg PO TID 04/20/24 04/20/24 Unknown History
Review of Systems
Vitals / Labs / Diagnostic Testing
Vital Signs
Temp Pulse Resp BP Pulse Ox
98.1 F 76 20 125/58 95
04/23/24 11:12 04/23/24 11:12 04/23/24 11:12 04/23/24 11:12 04/23/24 11:12
Lab Data
04/23/24 11:59
04/23/24 06:24
Microbiology
04/21/24 08:12 Blood/Venous Blood Culture - Preliminary
No Growth in 48 hours- Final report to follow
04/22/24 12:21 Urine Legionella Urinary Antigen - Final
Negative for Legionella pneumophila Serogroup 1 antigen.
A negative result does not rule out the possiblity of
Legionella infection due to other serogroups or species of
Legionella. Clinical correlation is recommended.
04/22/24 12:21 Urine Streptococcus pneumoniae Antigen (M - Final
Negative for Streptococcus pneumoniae antigen.
A negative result does not exclude infection with
Streptococcus pneumoniae. Clinical correlation is
recommended.
04/21/24 07:38 Blood/Venous Blood Culture - Preliminary
No Growth in 48 hours- Final report to follow
04/21/24 01:53 Urine Urine Culture - Final
NO GROWTH
04/21/24 01:53 Nose MRSA Screen - Final
No Methicillin Resistant Staphylococcus aureus isolated.
04/21/24 13:26 Nasal Swab Influenza Types A & B (PRASAD) - Final
Negative for Influenza A & B, NAAT
Negative results must be combined with clinical observations
and patient history.
Nucleic Acid Amplification test (NAAT)performed on the
linkedFA platform.
Diagnostic Testing:
Physical Exam
-
Exam:
Well-nourished and well-developed in no apparent distress
HEENT-atraumatic, normocephalic
Neck-supple, no JVD, no bruit
Heart-regular rate and rhythm-no murmurs, rubs or gallops.
Chest-clear, diminished, prolonged expiratory time, rare basilar crackles
Back-no tenderness
Abdomen-soft, nontender, nondistended, no hepatosplenomegaly
Extremities-no cyanosis, clubbing, edema and good peripheral pulses
Integument-intact, no rashes, lesions or ecchymosis
Neurology-alert and oriented, nonfocal motor and sensory exam
Assessment
-
79-year-old male with a history of CAD, CVA, hypertension, hyperlipidemia, anxiety, recently released from [facility] after biliary drainage and admitted here with sepsis and acute calculus cholecystitis and transferred to [place] where he
underwent percutaneous cholecystostomy and discharged on oral antibiotics-admitted 04/20/2024 with generalized weakness and delirium and pulmonary consulted on 04/23/2024 for possible pneumonia.
Heart failure preserved EF
Interstitial lung disease-Atypical pneumonia , CHF, noninfectious inflammatory lung disease including drug reaction,-i.e. amiodarone-
Pneumonia
Atrial fibrillation
[id number] 6.7
Acute calculus cholecystitis/possible gangrenous cholecystitis, suspicion of gallbladder perforation, pericholecystic abscess and choledocholithiasis with possible ascending cholangitis
Transferred to [place] 04/16/2024
Status post biliary tree stent and then discharged home 04/20/2024
Leukocytosis
Conditions present prior to admission:
Hypertension.
Hyperlipidemia.
CAD/CABG.
PAD.
Anemia.
Depression.
Atrial fibrillation/) SVT/ablation.
COPD
Former [id number]-year
History of alcohol abuse
CVA
GERD
AAA
Diverticulosis
Colostomy
AAA repair.
Plan
Respiratory decompensation including hypoxemia, likely multifactorial-heavy lifelong smoker, underlying COPD, no interstitial abnormalities-fluid, atypical infection or amiodarone are possibilities
Reviewed radiographs including recent CTs of the abdomen-lower lung cuts reviewed and groundglass opacifications now noted are new and thus unlikely chronic interstitial lung disease
Supplement oxygen
Nebulizers as needed
Aspiration precautions
Incentive spirometry
Diuresis as tolerated
Monitor intake/output, lower extremity edema, renal function, weight
ProBNP elevated
Cardiology following-correspondence reviewed-field euvolemic-aggressive diuresis on hold.
Consider right heart catheterization if intravascular volume status and question
Atrial fibrillation-Rate control
Amiodarone 400 mg daily-? When was this initiated-appears to be for nonsustained ventricular tachycardia or atrial fibrillation-amiodarone pulmonary toxicity risks increase at this dose
Check cultures.
Antibiotics continue-atypical coverage [id number].
Follow radiographically.
Consideration towards steroids if noninfectious inflammatory lung condition or amiodarone pulmonary toxicity considered.
GI evaluation.
Follow hemoglobin.
Transfuse as needed.
Ongoing smoking cessation counseling-quit smoking 1 month ago
DVT prophylaxis-was on Eliquis-now held due to anemia.
GI prophylaxis-uncontrolled results.
Nutrition per GI.
Early mobilization..
Reviewed with primary team
Recommend outpatient pulmonary evaluation-ongoing radiographic follow-up, full PFTs including diffusing capacity, ongoing smoking cessation counseling, etc.
Diagnostic data:
Chest x-ray 01/28/17-NAD.
Chest x-ray 07/31/23-NAD.
Chest x-ray 08/30-mild interstitial opacifications improved.
Chest x-ray 04/15/2024-mild cardiomegaly, mild CHF
Chest x-ray 04/21/2024-mild CHF
CT abdomen 06/10/23-advanced atherosclerotic disease and peripheral vascular disease, basilar lung cuts. No obvious ILD
CT abdomen and pelvis 04/15/24-mild dependent subsegmental atelectasis
CT abdomen and pelvis 04/22/2024-tip of cholecystostomy tube and decompressed gallbladder, small amount of gas in the gallbladder, new interstitial airway disease right middle lobe and lingula, moderate left-sided renal cortical atrophy
CT chest 04/23/2024-severe groundglass opacities bilaterally most pronounced the upper lobes with some bronchiectasis-interstitial pneumonia, worsening interstitial fibrosis or atypical pulm edema on the differential
Data Reviewed
-
Radiology: Image personally visualized and interpreted and Report reviewed by me
CT Scan: Image personally visualized and interpreted and Report reviewed by me
Labs: Labs reviewed by me
Old Records: Reviewed
Total Time Spent with Patient (in minutes): 65
--- NOTE | 2024-04-23 13:02 | W.PN.HOSP.TC ---
Today's Communication/Plan
-
cont Abx
Add doxy with b/l lung involvement
Pulm consult
PPI drip, hold ELiquis, transfuse blood and get GI consult
Assessment / Plan
Assessment / Plan
79yo M with PMHx of PAD s/p stents, AAA s/p repair, CKD, PMR, solitary L kidney, colectomy s/p colostomy, CVA in 2021, memory impairment, permanent Afib, HTN, CAD s/p PCI and CABG, NSVT, HLD, recent admission to with elevated LFT, found
cholecystitis with colangitis complicated by bacteremia, then transferred to [facility] for ERCP, had biliary drain placed and discharged on 04/20/24, however became progressively weak and confused, had episode of urinary incontinence on his
way home and brought back to with concern for need for rehab. found hypoxic and with possible UTI. Patient is recent smoker. Managed for multifocal pneumonia, possible ILD and minor volume overload. Developed GIB
A/P:
#Acute hypoxic respiratory failure
#Pulmonary edema
#Cannot exclude multifocal pneumonia
COVID-19 and influenza neg
Broad spectrum Abx
Stop Vanco since MRSA screen neg
Legionella and S.pneumonia urinary Ag neg
Lasix stopped as no significant concern for volume overload by cardiology
Echo: EF 55%, No wall motion abnormalities seen, Mild to moderate basal septal hypertrophy, Estimated pulmonary artery pressure of 35 mmHg, no change since August 2023
#Hypokalemia
2/2 diuresis
replete and follow
#Acute blood loss on chronic MERRITT anemia with Melena
Black stool in stoma on 04/23/24
Hold Eliquis
PPI drip
GI consult
#Mild thrombocytopenia
follow CBC
Low 4T score and patient is on Eliquis - check HIT Ab, cont Eliquis
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
#Ischemic colitis, postop vascular surgery S/P colostomy
cont colostomy care
#UTI ruled out
Ucx neg
#Gangrenous Cholecystitis s/p perc aashish with ascending cholangitis and bacteremia
perc aashish draining well - plan by Parmjit for drain check in 4-6 weeks - continue to follow established outpatient plan
CT confirmed appropriate PRAKASH drain position
ERCP with stone extraction on 04/20/24
Zosyn,
repeated Bcx Ntd
follow LFT
#Solitary L kidney with CKD stage 3a
Cr elevation 2/2 anemia, hypoxia, diuresis
#Afib, permanent
#HLD
#Chronic anemia
#Essential HTN
#PMR
#Hx of CVA
#AAA s/p repair
#Colostomy
#NSVT
#Essential HTN
Titrate antihypertensives to target normotension
cont rest of medications
telemetry
DVT ppx SCDs
Full code
I have spent at least 59min relieving chart, test results, communication with consultants and direct patient care
Anticipated Discharge: > 48 hours
Subjective/Interval History
-
Date of Service: April 23, 2024
Objective Data
-
Labs:
Laboratory Results
04/23/24 04/23/24
06:24 11:59
WBC 16.5 H
Hgb 6.7 L* 7.4 L
Hct 19.8 L* 22.1 L
Plt Count 242
Sodium 136
Potassium 3.3 L
Chloride 101
Carbon Dioxide 27
BUN 26 H
Creatinine 1.7 H
Glucose 111 H
Calcium 8.4
Total Bilirubin 1.1
AST 74 H
ALT 78 H
Alkaline Phosphatase 178 H
Vital Signs:
Vital Signs
Temp Pulse Resp BP Pulse Ox
98.1 F 76 20 125/58 95
04/23/24 11:12 04/23/24 11:12 04/23/24 11:12 04/23/24 11:12 04/23/24 11:12
I&O
04/22/24 04/23/24 04/24/24
06:59 06:59 06:59
Intake Total 720 / 720 1240 / 1240
Output Total 1974 360 / 360
Balance -1255 / -1255 880 / 880
Review of Systems
-
History Source: Patient
All other systems: Reviewed and negative
Constitutional: Reports Fatigue
Physical Exam
-
General: No Apparent Distress
HEENT: Normocephalic, Atraumatic and Moist Mucous Membranes
Respiratory: Crackles
Cardiac: Regular Rhythm; Negative Murmur or Rub
GI: Soft, Ostomy and Other (PRAKASH drain with clear bilous output)
Rectal: Black
Musculoskeletal: No Clubbing, No Cyanosis and No Edema
Neuro: Awake, Alert, Oriented and AO x 3
Psych: Calm
[2024-04-23] MEDS: KCL 40 MEQ PO (13:16)
--- NOTE | 2024-04-23 14:18 | CM ---
commercial leasing manager reviewed patient's chart and met with patient and spoke with patient's spouse by phone, patient is aware that he is going to son Fabiano's home at discharge, patient has been set up with [facility] visiting nurses in [facility].
Plan; Home to sonFabiano's house with [facility] visiting nurses when stable.
[place]
[phone]
--- NOTE | 2024-04-23 15:16 | PN.CDI ---
CDI
- -
CDI:
Physician Documentation Request
Admit Date: 04/21/24 10:51
Dear Doctor Roberth,
Please review the following and provide your response in the progress notes.
Clinical Indicators:
Pt admitted for weakness, acute respiratory failure, and possible pneumonia.
04/22 Cardiology note: 'SOB - multi-factorial with HFpEF and PNA.- agree with IV diuresis and IV antibiotics.'
Please clarify the acuity and etiology of the pulmonary edema:
Acute Diastolic heart failure
Acute on chronic diastolic heart failure
Acute pulmonary edema
Chronic pulmonary edema
Other
Use of terms such as suspected, likely, concern for, or probable (associated with a specific diagnosis that is being evaluated, monitored, or treated as if it exists) are acceptable and can be coded in the inpatient setting, when documented at the
time of discharge.
Thank you,
Amy Richardson RN, BSN
CDI Specialist
Available via [place] [employer]
Please use your independent medical judgment in providing your response.
[2024-04-23] MEDS: CRESTOR 40 MG PO (17:36)
[2024-04-23] MEDS: PROTONIX IV (18:01)
[2024-04-23] MEDS: NSS (PRESERVATIVE FREE) 10 ML IV (20:42)
[2024-04-23] MEDS: PROTONIX IV 40 MG IV (20:42)
[2024-04-24] MEDS: ZOSYN 50 IV ×3 (02:41→13:36)
[2024-04-24 03:15] VITALS: BP 116/59
[2024-04-24 06:00] VITALS: BMI 23.0
[2024-04-24 07:35] VITALS: BP 134/64
[2024-04-24 07:41] LABS: % Basophils 0.1 % (0-2); % Eosinophils 0.4 % (0-6); % Immature Granulocytes 1.1 % (0-0.5); % Lymphocytes 3.1 % (20.5-51.1); % Monocytes 2.9 % (1.7-9.3); % Neutrophils 92.4 % (42.2-75.2); Absolute Eosinophils 0.1 10^3/uL (0-0.7); Absolute Immature Granulocytes 0.2 10^3/uL (0-0.05); Absolute Lymphocytes 0.6 10^3/uL (1.2-3.4); Absolute Monocytes 0.5 10^3/uL (0.1-0.6); Absolute Neutrophils 16.7 10^3/uL (1.4-6.5); Hemoglobin 8.3 g/dL (13.0-18.0); Mean Corp Hgb Conc. 33.2 g/dL (33.0-37.0); Mean Corpuscular Hgb 27.8 pg (27.0-31.0); Mean Corpuscular Volume 83.6 fL (80.0-94.0); Mean Platelet Volume 11.8 fL (7.4-10.4); Nucleated Red Blood Cells % 0.2 % (-); Platelet Count 288 10^3/uL (130-400); Red Blood Cell Count 2.99 10^6/uL (4.70-6.10); Red Cell Dist. Width 18.2 % (11.5-14.5)
[2024-04-24 08:17] LABS: ALT (SGPT) 82 U/L (0-50); AST (SGOT) 96 U/L (17-59); Albumin 2.5 g/dl (3.5-5.0); Alkaline Phosphatase 204 U/L (38-126); Blood Urea Nitrogen 25 mg/dl (9-20); Calcium 8.8 mg/dl (8.4-10.2); Carbon Dioxide 26 mmol/L (22-30); Chloride 102 mmol/L (98-107); Estimated Creatinine Clearance 36 ml/min; Glucose 97 mg/dl (70-99); Magnesium 2.2 mg/dl (1.6-2.3); Potassium 3.6 mmol/L (3.5-5.1); Sodium 140 mmol/L (135-145); Total Bilirubin 0.9 mg/dl (0.2-1.3); Total Protein 5.8 g/dl (6.3-8.2); eGFR 40.25
[2024-04-24] MEDS: FOLVITE 1 MG PO (08:24)
[2024-04-24] MEDS: B COMPLEX w/VITAMIN C 1 CAPLET PO (08:24)
[2024-04-24] MEDS: COREG 12.5 MG PO ×2 (08:24→20:01)
[2024-04-24] MEDS: ZYRTEC 10 MG PO (08:24)
[2024-04-24] MEDS: ZINC 50 MG PO (08:24)
[2024-04-24] MEDS: VIBRAMYCIN 100 MG PO (08:24)
[2024-04-24] MEDS: PROTONIX IV 40 MG IV ×2 (08:25→20:03)
[2024-04-24] MEDS: FLOMAX 0.4 MG PO (08:25)
[2024-04-24] MEDS: VITAMIN D3 (cholecalciferol) 50 MCG PO (08:25)
[2024-04-24] MEDS: NSS (PRESERVATIVE FREE) 10 ML IV ×2 (08:25→20:03)
[2024-04-24] MEDS: PACERONE 400 MG PO (08:25)
[2024-04-24] MEDS: APRESOLINE 50 MG PO ×3 (08:25→22:50)
[2024-04-24] MEDS: NORVASC 10 MG PO (08:25)
[2024-04-24] MEDS: SPIRIVA RESPIMAT 2.5 MCG 2 PUFF INH ×2 (08:33→20:29)
[2024-04-24] MEDS: SYMBICORT 160/4.5 MCG INHALER 2 PUFF INH ×2 (08:33→20:29)
--- NOTE | 2024-04-24 09:30 | W.PN.PUL3 ---
Today's Communication / Plan
-
Symbicort/Spiriva as he uses Breztri at home
Antibiotics as per ID
Defer diuretics to cardiology
Defer diet to GI
Holding Eliquis given recent anemia with 1 unit PRBC transfused on 04/23
Up OOB as tolerated
If little improvement of shortness of breath despite correcting anemia and giving antibiotics, then consider steroids for noninfectious causes of CT chest scan findings
Incentive spirometer
Pulmonary service will continue to follow along
Assessment
-
79-year-old male with a history of CAD, CVA, hypertension, hyperlipidemia, anxiety, recently released from [facility] after biliary drainage and admitted here with sepsis and acute calculus cholecystitis and transferred to [facility] where he
underwent percutaneous cholecystostomy and discharged on oral antibiotics-admitted 04/20/2024 with generalized weakness and delirium and pulmonary consulted on 04/23/2024 for possible pneumonia.
Impression:
Acute HFpEF exacerbation
Interstitial lung disease-Atypical pneumonia , CHF, noninfectious inflammatory lung disease including drug reaction,-i.e. amiodarone-
Pneumonia
Atrial fibrillation
Anemia requiring 1 unit PRBC transfusion on 04/23/2024
Acute calculus cholecystitis/possible gangrenous cholecystitis, suspicion of gallbladder perforation, pericholecystic abscess and choledocholithiasis with possible ascending cholangitis
Transferred to [facility] 04/16/2024
Status post biliary tree stent and then discharged home 04/20/2024
Leukocytosis
Conditions present prior to admission:
Hypertension.
Hyperlipidemia.
CAD/CABG.
PAD.
Anemia.
Depression.
Atrial fibrillation/) SVT/ablation.
COPD
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
History of alcohol abuse
CVA
GERD
AAA
Diverticulosis
Colostomy
AAA repair.
Plan
Respiratory decompensation including hypoxemia, likely multifactorial-heavy lifelong smoker, underlying COPD, no interstitial abnormalities-fluid, atypical infection or amiodarone are possibilities
Reviewed radiographs including recent CTs of the abdomen-lower lung cuts reviewed and groundglass opacifications now noted are new and thus unlikely chronic interstitial lung disease
Supplement oxygen with goal SpO2 88-95%
Spiriva + Symbicort
Aspiration precautions
Incentive spirometry encouraged 10x per hour for at least 4 hrs a day
Diuresis as tolerated
Monitor intake/output, lower extremity edema, renal function, weight
ProBNP elevated
Cardiology following-correspondence [id number] diuresis on hold.
Consider right heart catheterization if intravascular volume status in question
Atrial fibrillation-Rate control
Amiodarone 400 mg daily-? When was this initiated-appears to be for nonsustained ventricular tachycardia or atrial fibrillation-amiodarone pulmonary toxicity risks increase at this dose
Follow-up blood cultures (collected 04/21/2024 � TD); follow-up urine culture (collected 04/21/2024 - NGTD)
Continue with antibiotics -currently on Zosyn + doxycycline s/p vancomycin on 04/21
ID consulted - defer Abx to them
Follow radiographically.
Consideration towards steroids if noninfectious inflammatory lung condition or amiodarone pulmonary toxicity considered, i.e., little improvement with Abx and inhalers
GI evaluation.
Follow hemoglobin.
Transfuse as needed to keep Hb>7
Defer diet to GI
PPI q12hr
Ongoing smoking cessation counseling-quit smoking 1 month ago
DVT prophylaxis-was on Eliquis-now held due to anemia.
GI prophylaxis- on PPI
Nutrition per GI.
Early mobilization..
Reviewed with primary team
Recommend outpatient pulmonary evaluation-ongoing radiographic follow-up, full PFTs including diffusing capacity, ongoing smoking cessation counseling, etc.
Pulmonary service will continue to follow along
Diagnostic data:
Chest x-ray 01/28/17-NAD.
Chest x-ray 07/31/23-NAD.
Chest x-ray 08/30-mild interstitial opacifications improved.
Chest x-ray 04/15/2024-mild cardiomegaly, mild CHF
Chest x-ray 04/21/2024-mild CHF
CT abdomen 06/10/23-advanced atherosclerotic disease and peripheral vascular disease, basilar lung cuts. No obvious ILD
CT abdomen and pelvis 04/15/24-mild dependent subsegmental atelectasis
CT abdomen and pelvis 04/22/2024-tip of cholecystostomy tube and decompressed gallbladder, small amount of gas in the gallbladder, new interstitial airway disease right middle lobe and lingula, moderate left-sided renal cortical atrophy
CT chest 04/23/2024-severe groundglass opacities bilaterally most pronounced the upper lobes with some bronchiectasis-interstitial pneumonia, worsening interstitial fibrosis or atypical pulm edema on the differential
Total time spent today was 52 minutes for this encounter. Time includes reviewing laboratory test/imaging results, reviewing pertinent medical records, obtaining and reviewing medical history, performing an appropriate exam, ordering medications,
tests and procedures. Time also includes documentation of this encounter, coordinating patient care and communicating with other healthcare professionals. Total time does not include separately billed tests performed on this date of service.
Subjective Data
-
Date of Service:
Date of Service: April 24, 2024
Chief Complaint: Pulmonary Follow Up
Subjective:
Seen and evaluated today at bedside. He says he feels better with his shortness of breath, and currently on 4 L/min nasal cannula. Denies chest pain, OLIVAS, nausea, vomiting, fevers or chills.
Review of Systems
General: Other (Negative unless mentioned above)
Objective Data
Data Reviewed
Vital Signs / I&O / Oxygen:
Vital Signs
Temp Pulse Resp BP Pulse Ox
98.4 F 74 20 109/60 97
04/24/24 11:15 04/24/24 11:15 04/24/24 11:15 04/24/24 11:15 04/24/24 11:15
Intake and Output
04/23/24 04/24/24 04/25/24
06:59 06:59 06:59
Intake Total 1240 / 1240 590 / 590 480 / 480
Output Total 360 / 360 75 / 75
Balance 880 / 880 515 / 515 480 / 480
SaO2 97
Nasal Cannula flow liters per 4
minute
Physical Exam
General: Respiratory Distress (negative), Comfortable, Chills (negative) and Sweats (negative)
HEENT: Normocephalic and Anicteric
Cardiovascular: S1-S2 and Peripheral Edema (negative)
Respiratory: Wheeze (negative), Crackles (Bilaterally), Rhonchi (negative) and Non-Labored Respirations
GI: Soft, Non Distended, Non Tender and Normal Bowel Sounds
Neurology: Awake, Alert and Tremors (negative)
Skin: Warm, Dry, Cyanosis (negative) and Jaundice (negative)
Labs/Micro/Reports
Lab Data
04/24/24 07:13
04/24/24 07:13
Microbiology
04/21/24 08:12 Blood/Venous Blood Culture - Preliminary
No Growth in 72 hours- Final report to follow
04/21/24 07:38 Blood/Venous Blood Culture - Preliminary
No Growth in 72 hours- Final report to follow
04/22/24 12:21 Urine Legionella Urinary Antigen - Final
Negative for Legionella pneumophila Serogroup 1 antigen.
A negative result does not rule out the possiblity of
Legionella infection due to other serogroups or species of
Legionella. Clinical correlation is recommended.
04/22/24 12:21 Urine Streptococcus pneumoniae Antigen (M - Final
Negative for Streptococcus pneumoniae antigen.
A negative result does not exclude infection with
Streptococcus pneumoniae. Clinical correlation is
recommended.
04/21/24 01:53 Urine Urine Culture - Final
NO GROWTH
04/21/24 01:53 Nose MRSA Screen - Final
No Methicillin Resistant Staphylococcus aureus isolated.
04/21/24 13:26 Nasal Swab Influenza Types A & B (PRASAD) - Final
Negative for Influenza A & B, NAAT
Negative results must be combined with clinical observations
and patient history.
Nucleic Acid Amplification test (NAAT)performed on the
[employer] platform.
--- NOTE | 2024-04-24 10:21 | W.PN.GI.CBS2 ---
Today's Communication / Plan
-
- advance diet, check hgb in the am
Assessment / Plan
-
Avery is a complicated 78-year-old male with multiple comorbidities including atrial fibrillation on Eliquis, prior stroke, significant vascular disease who also underwent an elective bilateral femoral endarterectomy and vascular intervention for
AAA with unfortunate subsequent ischemic colitis requiring open left colectomy and distal transverse colostomy with prolonged recovery. He was just here last week with gangrenous cholecystitis and suspicion for gallbladder perforation abscess and
choledocholithiasis with cholangitis. We do not have his records but I percutaneous cholecystostomy was placed. Upon discharge from [facility] on 04/20/2024 he became confused in the car ride home, delirious had an episode of urinary incontinence
and was brought back to [facility] with concern for need for rehab. He was found hypoxemic with a possible UTI and pneumonia. We were called today on 04/23/2024 because of black liquid in his ostomy with a drop in hemoglobin. On
admission he was 8.3 yesterday on's 04/22 7.5 and on 04/23 down to 6.7.
He did receive 1 unit of blood and responded to 7.4. His Eliquis has been on hold. He denies any GI symptoms including no lightheadedness or dizziness. His blood pressure is 137/62 heart rate of 81. No dysphagia heartburn nausea vomiting
abdominal pain. He does not want to answer many questions and states he is cold. He is alert and awake
On exam his abdomen is soft, nontender and his ostomy bag is leaking small amount of liquid melena.
other med problems:
-afib on Eliquis prior to admission/prior SVT/ablation
-HTN
-hyperlipidemia
-CAD/CABG
-PAD with prior b/l fem endarterectomy and vascular intervention for AAA with subsequent ischemic colitis requiring left colectomy with colostomy 07/2023
-Depression
Atrial fibrillation/SVT/ablation.
-COPD tobacco abuse
-prior CVA
-GERD
-Diverticulosis
PLAN:
# GI bleed -hemodynamically stable on Eliquis (unsure, but suspected 04/23)
--- Etiology could be esophagitis, ulcer, angioectasia, neoplasm -patient is also on doxycycline which can be very irritating. Make sure to sit upright after taking doxycycline and wash it down with plenty of liquids
-- It does not appear he was on ppi as an outpatient but it is possible
-- PPI BID, hold Eliquis, status post 1 unit on 04/23/2024 with good response and stool output is less dark today
-- Patient on full liquids - advance today
-- Get records from [facility] - requist sent - chart checked, nothing yet
--Monitor. Hopefully bleeding will stop with holding Eliquis and PPI BID
- if no improvement, consider EGD
- patient is high risk for CVA and will need Eliquis will see how he does
-dark heme + stool
-anemia acute on chronic
-concern for hypoxemia/PNA/CHF
-recent acute calculus cholecystitis /possible gangrenous GB with suspected perf, choledocholithiasis, s/p aashish tube and ? intervention at [facility] 04/2024
-leukocytosis
Subjective
Subjective
Date of Service: April 24, 2024
no complaints
Objective
Data Reviewed
Laboratory Data:
Laboratory Results
04/24/24 07:13
04/24/24 07:13
Laboratory Results
Magnesium 2.2 mg/dl (1.6-2.3) 04/24/24 07:13
Total Bilirubin 0.9 mg/dl (0.2-1.3) 04/24/24 07:13
AST 96 U/L (17-59) H 04/24/24 07:13
ALT 82 U/L (0-50) H 04/24/24 07:13
Alkaline Phosphatase 204 U/L (38-126) H 04/24/24 07:13
Vital Signs and I&O:
Vital Signs
Temp Pulse Resp BP Pulse Ox
98.6 F 75 16 134/64 95
04/24/24 07:35 04/24/24 08:40 04/24/24 08:40 04/24/24 07:35 04/24/24 08:40
I&O
04/23/24 04/24/24 04/25/24
06:59 06:59 06:59
Intake Total 1240 / 1240 590 / 590 480 / 480
Output Total 360 / 360 75 / 75
Balance 880 / 880 515 / 515 480 / 480
[2024-04-24 11:15] VITALS: BP 109/60
--- NOTE | 2024-04-24 12:02 | W.PN.CD ---
Addendum entered and electronically signed by Rasta Harris MD 04/24/24 12:58:
I saw and examined the patient.
The SUPERVISOR MOLDING's note was reviewed and I agree with the note.
Comment: Overall, he appears euvolemic.
- Lasix PRN for weight gain/volume
- Resume Eliquis when ok from bleeding perspective
We will signoff please call with questions/concerns.
Original Note:
Today's Communication / Plan
-
Eliquis on hold for anemia/bleed- resume when safe from this perspective
Can use Lasix PRN for weight gain/volume retention
Impression / Plan
-
SOB - multi-factorial with acute on chronic HFpEF, underlying lung disease, PNA.
- LVEF 55% on Echocardiogram 04/21/2024.
- BNP elevated, but appears to be grossly compensated on examination; now with significant anemia (hemoglobin 6.7%), agree with holding diuretic. Can use diuretic PRN weight gain/volume retention.
- IV antibiotics as per primary team.
Permanent Afib - rate controlled on Amiodarone and Coreg.
-Eliquis needs to be held as patient has a hemoglobin as low as 6.7 and is heme positive. GI following. Patient is s/p transfusion and on PPI. Resume Eliquis when safe from bleeding perspective.
Anemia:
-as above, GI following Eliquis held. Improved s/p transfusion. On PPI. Monitor hgb.
NSVT- infrequent, very brief runs noted on telemetry.
-Conservative cardiac management.
-Continue amiodarone.
-tele stable for past 24 hours on my review without NSVT
Acute calculous cholecystitis - with possible gangrenous cholecystitis, suspicion of gallbladder perforation, pericholecystic abscess and choledocholithiasis with possible ascending cholangitis.
- transferred to [facility] 04/16/2024.
- s/p biliary tree stents then d/c home 04/20/24.
- follow up with GI.
PAD - with AAA, CVA x 2.
- stable on Crestor, typically on Eliquis
Tobacco abuse - still smoking.
- smoking cessation reviewed with patient this admit
Physical Exam
Vital Signs/Labs
Vital Signs
Temp Pulse Resp BP Pulse Ox
98.6 F 75 16 134/64 95
04/24/24 07:35 04/24/24 08:40 04/24/24 08:40 04/24/24 07:35 04/24/24 08:40
04/23/24 04/24/24 04/25/24
06:59 06:59 06:59
Actual Weight 73.482 kg 72.802 kg
04/24/24 07:13
04/24/24 07:13
Magnesium 2.2 mg/dl (1.6-2.3) 04/24/24 07:13
04/21/24
06:46
Pei-W-Yzqousgaamw Pept > [id number]
Physical Exam
Constitutional: No acute distress
EENT: Anicteric
Cardiovascular: Rhythm & rate is regular and Pedal edema is absent
Respiratory: Other (on O2 by NC, coarse lung sounds)
Data Reviewed
-
Date of Service: April 24, 2024
EKG: Other (tele AFIB)
Labs: Labs Reviewed by me
--- NOTE | 2024-04-24 12:09 | W.PN.HOSP.TC ---
Addendum entered and electronically signed by Jose Luis Lepe MD 04/24/24 12:42:
Discussed with son Isra over the phone in details: complicated combination of problems, poor improvement on current Abx, new bleeding and increased risk of CVA while holding Eliquis
Original Note:
Today's Communication/Plan
-
ID cont
cont rest of the care
cont to hold Eliquis
Assessment / Plan
Assessment / Plan
79yo M with PMHx of PAD s/p stents, AAA s/p repair, CKD, PMR, solitary L kidney, colectomy s/p colostomy, CVA in 2021, memory impairment, permanent Afib, HTN, CAD s/p PCI and CABG, NSVT, HLD, recent admission to with elevated LFT, found
cholecystitis with colangitis complicated by bacteremia, then transferred to [facility] for ERCP, had biliary drain placed and discharged on 04/20/24, however became progressively weak and confused, had episode of urinary incontinence on his
way home and brought back to with concern for need for rehab. found hypoxic and with possible UTI. Patient is recent smoker. Managed for multifocal pneumonia, possible ILD and minor volume overload. Developed GIB.
Not much improvement on initial Abx, so pulmonary and ID involved in further care
A/P:
#Acute hypoxic respiratory failure
#Pulmonary edema 2/2 acute on chronic HFpEF exacerbation
#multifocal pneumonia
COVID-19 and influenza neg
Broad spectrum Abx
Stop Vanco since MRSA screen neg
Legionella and S.pneumonia urinary Ag neg
Lasix stopped as no significant concern for volume overload by cardiology
Echo: EF 55%, No wall motion abnormalities seen, Mild to moderate basal septal hypertrophy, Estimated pulmonary artery pressure of 35 mmHg, no change since August 2023
Pulm consult
ID consult
#Hypokalemia
2/2 diuresis
replete and follow
#Acute blood loss on chronic MERRITT anemia with Melena
Black stool in stoma on 04/23/24
Hold Eliquis
PPI drip
GI consult
#Mild thrombocytopenia
follow CBC
Low 4T score and patient is on Eliquis - check HIT Ab, cont Eliquis
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
#Ischemic colitis, postop vascular surgery S/P colostomy
cont colostomy care
#UTI ruled out
Ucx neg
#Gangrenous Cholecystitis s/p perc aashish with ascending cholangitis and bacteremia
perc aashish draining well - plan by Parmjit for drain check in 4-6 weeks - continue to follow established outpatient plan
CT confirmed appropriate PRAKASH drain position
ERCP with stone extraction on 04/20/24
Zosyn,
repeated Bcx Ntd
follow LFT
#Solitary L kidney with CKD stage 3a
Cr elevation 2/2 anemia, hypoxia, diuresis
#Afib, permanent
#HLD
#Chronic anemia
#Essential HTN
#PMR
#Hx of CVA
#AAA s/p repair
#Colostomy
#NSVT
#Essential HTN
Titrate antihypertensives to target normotension
cont rest of medications
telemetry
#Severe Protein calorie Malnutrition
supplements
guide tour follows
DVT ppx SCDs
Full code
I have spent at least 59min relieving chart, test results, communication with consultants and direct patient care
Anticipated Discharge: > 48 hours
Subjective/Interval History
-
Date of Service: April 24, 2024
Objective Data
-
Labs:
Laboratory Results
04/24/24
07:13
WBC 18.0 H
Hgb 8.3 L
Hct 25.0 L
Plt Count 288
Sodium 140
Potassium 3.6
Chloride 102
Carbon Dioxide 26
BUN 25 H
Creatinine 1.7 H
Glucose 97
Calcium 8.8
Total Bilirubin 0.9
AST 96 H
ALT 82 H
Alkaline Phosphatase 204 H
Vital Signs:
Vital Signs
Temp Pulse Resp BP Pulse Ox
98.6 F 75 16 134/64 95
04/24/24 07:35 04/24/24 08:40 04/24/24 08:40 04/24/24 07:35 04/24/24 08:40
I&O
04/23/24 04/24/24 04/25/24
06:59 06:59 06:59
Intake Total 1240 / 1240 590 / 590 480 / 480
Output Total 360 / 360 75 / 75
Balance 880 / 880 515 / 515 480 / 480
[2024-04-24 15:00] VITALS: BP 121/55
--- NOTE | 2024-04-24 15:20 | CON.ID ---
Consultation
-
Date/Time Consultation Requested: April 24, 2024 1131
Date/Time Consultation Performed: April 24, 2024 1530
Requesting Provider: Dr. Jose Luis Lepe
Performing Provider: Dr. Lashonda Hodge
Reason for Consultation: Leukocytosis
Chief Complaint / Past History
Chief Complaint
Weakness
History of Present Illness
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
recently presented to the hospital on April 15 with sepsis, E. coli bacteremia from cholangitis, MRI of the abdomen showed severe acute calculus cholecystitis with suspicious for gallbladder perforation and pericholecystic abscess. Patient was
transferred to [facility]. Records requested but not yet available. He was discharged on April 20 with per continues cholecystostomy drain and on Augmentin. On the way home patient was somewhat confused, very weak unable to get out of
the car. His son therefore brought him to [facility]. He is afebrile. White count was 15.2. Chest CT showed severe multi focal increase groundglass opacities bilaterally, bronchiectasis seen bilaterally. BNP>2700 Blood cultures
negative. Patient has been on Zosyn and doxycycline. Also on furosemide for diuresis. Echo shows 55% EF. His hemoglobin dropped to 6.5, Eliquis currently on hold. Patient reports shortness of breath started when he was at outside hospital. No
cough. No fever. Appetite is poor. No urinary symptoms. No abdominal pain. No increased liquid stool in the ostomy. No headache or sinus congestion. No sore throat.
Past History
Additional Past Medical History:
Hypertension
Dyslipidemia
Atrial fibrillation on Eliquis
CAD status post stents x 3 and CABG x 3
PAD with 4 stents
CVA
CKD 3B
COPD
Acute calculous cholecystitis s/p perc aashish at [facility] (04/2024)
AAA endograft repair, bilateral femoral endarterectomy complicated by ischemic colitis s/p left colectomy with colostomy 08/2023
Allergy History:
Benzodiazepines Allergy (Verified 04/20/24 20:04)
works opposite- gets agitated
codeine Allergy (Verified 04/20/24 20:04)
gets wild- hallucinations, visual
diazepam Allergy (Verified 04/20/24 20:04)
agitated + nervous
Medications Reviewed: Yes
Current Antibiotics:
Zosyn D4
doxycycline d3
Social History
Tobacco: Smoker
Alcohol: Former
Drug: None
Personal:
Employment: Retired
Family History
Family History: Not Pertinent
Review of Systems
Review of Systems
General: Change in Appetite; Negative Fever or Chills
HEENT: Negative Sinus Problems, Headache or Pharyngitis
Cardiovascular: Dyspnea; Negative Chest Pain or Edema
Respiratory: Dyspnea; Negative Cough or Sputum Production
Gasteroenterology: Negative Nausea or Vomiting
Genital / Urological: Negative Dysuria or Flank Pain
Endocrine: Weakness and Fatigue
Neurological: Negative Dizziness
All systems: All other systems were reviewed and were negative
Vital Signs
Temp Pulse Resp BP Pulse Ox
98.4 F 74 20 109/60 97
04/24/24 11:15 04/24/24 11:15 04/24/24 11:15 04/24/24 11:15 04/24/24 11:15
Physical Exam
Physical Exam
Constitutional: No Acute Distress and Comfortable
Head: Other (No frontal or maxillary sinus tenderness)
Eyes: No Conjunctival Hemorrhage and Sclera Anicteric
Cardiovascular: Irregular Rate
Pulmonary: Rales (bases)
Gastrointestinal: Soft, Non Tender, Non Distended, Normal Bowel Sounds and Other (Perc aashish drain: bile. Colostomy small amt of black stool)
Genito-Urinary: Negative CVA Tenderness
Extremities: Negative Edema
Neurological: AO x 3
Lab / Diagnostic Study Results
04/24/24 07:13
04/24/24 07:13
Abs Immat Gran (auto) 0.2 10^3/uL (0-0.05) H 04/24/24 07:13
Absolute Neuts (auto) 16.7 10^3/uL (1.4-6.5) H 04/24/24 07:13
Absolute Lymphs (auto) 0.6 10^3/uL (1.2-3.4) L 04/24/24 07:13
Absolute Monos (auto) 0.5 10^3/uL (0.1-0.6) 04/24/24 07:13
Absolute Basos (auto) 0.0 10^3/uL (0-0.2) 04/24/24 07:13
Immature Gran % 1.1 % (0-0.5) H 04/24/24 07:13
Neutrophils % 92.4 % (42.2-75.2) H 04/24/24 07:13
Lymphocytes % 3.1 % (20.5-51.1) L 04/24/24 07:13
Monocytes % 2.9 % (1.7-9.3) 04/24/24 07:13
Eosinophils % 0.4 % (0-6) 04/24/24 07:13
Basophils % 0.1 % (0-2) 04/24/24 07:13
Lactic Acid 1.3 mmol/L (0.7-2.0) 04/20/24 20:41
Ur Squamous Epith Cells - /LPF (Few) 04/21/24 01:53
Microbiology Results
Micro:
04/21/24 08:12 Blood Culture - Preliminary
Blood/Venous No Growth in 72 hours- Final report to follow
04/21/24 07:38 Blood Culture - Preliminary
Blood/Venous No Growth in 72 hours- Final report to follow
04/22/24 12:21 Legionella Urinary Antigen - Final
Urine Negative for Legionella pneumophila Serogroup 1 antigen.
A negative result does not rule out the possiblity of
Legionella infection due to other serogroups or species of
Legionella. Clinical correlation is recommended.
Streptococcus pneumoniae Antigen (M - Final
Negative for Streptococcus pneumoniae antigen.
A negative result does not exclude infection with
Streptococcus pneumoniae. Clinical correlation is
recommended.
04/21/24 01:53 Urine Culture - Final
Urine NO GROWTH
04/21/24 01:53 MRSA Screen - Final
Nose No Methicillin Resistant Staphylococcus aureus isolated.
04/21/24 13:26 Influenza Types A & B (PRASAD) - Final
Nasal Swab Negative for Influenza A & B, NAAT
Negative results must be combined with clinical observations
and patient history.
Nucleic Acid Amplification test (NAAT)performed on the
[employer] platform.
04/23/[address]: Severe groundglass opacity is seen bilaterally, most pronounced within the upper lung zones. There is fine reticular interstitial thickening and bronchiectasis, also most pronounced within the upper lobes on each side.
2. Differential diagnosis includes severe interstitial pneumonia, worsening interstitial fibrosis compared to 08/14/2023, an atypical pulmonary edema.
04/22/24 CT a/p: The tip of the cholecystotomy tube is in the decompressed gallbladder. There is a small amount of gas in the gallbladder. There is new interstitial airway disease in the basilar portions of the right middle lobe and lingula and to a
lesser extent in the basilar portions of both lower lobes suggesting interstitial pneumonia and associated with minimal bilateral pleural effusions. Stable aortobiiliac graft.
04/21/24 CXR: Pulmonary findings suggest pulmonary edema. Diffuse pneumonia is also possible.
Assessment / Plan
# Leukocytosis
- Suspect due to GIB with drop in H/H, elevated BUN
- Afebrile
- No infectious etiology identified.
- DC Zosyn and doxycycline.
# Recent E. coli bacteremia/cholangitis (04/15)
- s/p perc aashish [place]
- Transition Zosyn to Augmentin 500mg bid to complete remaining course.
# Ground-glass lung opacities
- Suspect pulm edema. BNP>2700, + SOB, no cough
-Continue diuresis
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
Hypertension
Dyslipidemia
Atrial fibrillation on Eliquis
CAD status post stents x 3 and CABG x 3
PAD with 4 stents
CVA
CKD 3B
COPD
Acute calculous cholecystitis s/p perc aashish at [facility] (04/2024)
AAA endograft repair, bilateral femoral endarterectomy complicated by ischemic colitis s/p left colectomy with colostomy 08/2023
Ambulatory dysfunction
[2024-04-24] MEDS: CRESTOR 40 MG PO (17:24)
[2024-04-24 19:58] VITALS: BP 124/57
[2024-04-24] MEDS: AUGMENTIN 500 MG/125 MG 1 TABLET PO (20:02)
[2024-04-24 23:08] VITALS: BP 126/60
[2024-04-25 03:21] VITALS: BP 142/66
[2024-04-25 05:48] LABS: % Basophils 0.1 % (0-2); % Immature Granulocytes 0.7 % (0-0.5); % Monocytes 3.3 % (1.7-9.3); % Neutrophils 91.9 % (42.2-75.2); Absolute Eosinophils 0.2 10^3/uL (0-0.7); Absolute Immature Granulocytes 0.1 10^3/uL (0-0.05); Absolute Lymphocytes 0.5 10^3/uL (1.2-3.4); Absolute Monocytes 0.5 10^3/uL (0.1-0.6); Absolute Neutrophils 14.5 10^3/uL (1.4-6.5); Hematocrit 23.8 % (39.0-52.0); Hemoglobin 7.8 g/dL (13.0-18.0); Mean Corp Hgb Conc. 32.8 g/dL (33.0-37.0); Mean Corpuscular Hgb 27.8 pg (27.0-31.0); Mean Corpuscular Volume 84.7 fL (80.0-94.0); Mean Platelet Volume 11.2 fL (7.4-10.4); Nucleated Red Blood Cells % 0 % (-); Platelet Count 282 10^3/uL (130-400); Red Blood Cell Count 2.81 10^6/uL (4.70-6.10); Red Cell Dist. Width 18.2 % (11.5-14.5); White Blood Cell Count 15.8 10^3/uL (4.8-10.8)
[2024-04-25 05:49] VITALS: BMI 22.1
[2024-04-25 06:19] LABS: ALT (SGPT) 78 U/L (0-50); AST (SGOT) 101 U/L (17-59); Albumin 2.3 g/dl (3.5-5.0); Alkaline Phosphatase 194 U/L (38-126); Blood Urea Nitrogen 26 mg/dl (9-20); Calcium 8.5 mg/dl (8.4-10.2); Carbon Dioxide 26 mmol/L (22-30); Chloride 102 mmol/L (98-107); Estimated Creatinine Clearance 34 ml/min; Glucose 95 mg/dl (70-99); Potassium 3.5 mmol/L (3.5-5.1); Sodium 136 mmol/L (135-145); Total Bilirubin 0.6 mg/dl (0.2-1.3); Total Protein 5.4 g/dl (6.3-8.2); eGFR 40.25
[2024-04-25] MEDS: SPIRIVA RESPIMAT 2.5 MCG 2 PUFF INH ×2 (07:57→20:08)
[2024-04-25] MEDS: SYMBICORT 160/4.5 MCG INHALER 2 PUFF INH ×2 (07:57→20:08)
[2024-04-25 08:03] VITALS: BP 116/61
[2024-04-25 08:11] LABS: C-Reactive Protein > 270.00 mg/L (0.0-10.00)
[2024-04-25] MEDS: NSS (PRESERVATIVE FREE) 10 ML IV ×2 (08:21→21:30)
[2024-04-25] MEDS: ZYRTEC 10 MG PO (08:22)
[2024-04-25] MEDS: PROTONIX IV 40 MG IV ×2 (08:22→21:30)
[2024-04-25] MEDS: FOLVITE 1 MG PO (08:22)
[2024-04-25] MEDS: VITAMIN D3 (cholecalciferol) 50 MCG PO (08:22)
[2024-04-25] MEDS: NORVASC 10 MG PO (08:22)
[2024-04-25] MEDS: B COMPLEX w/VITAMIN C 1 CAPLET PO (08:22)
[2024-04-25] MEDS: ZINC 50 MG PO (08:22)
[2024-04-25] MEDS: FLOMAX 0.4 MG PO (08:23)
[2024-04-25] MEDS: PACERONE 400 MG PO (08:23)
[2024-04-25] MEDS: AUGMENTIN 500 MG/125 MG 1 TABLET PO ×2 (08:23→21:28)
[2024-04-25] MEDS: COREG 12.5 MG PO ×2 (08:23→21:29)
[2024-04-25] MEDS: APRESOLINE 50 MG PO ×3 (08:23→22:36)
[2024-04-25 08:49] LABS: Erythrocyte Sed Rate 100 mm/hour (0-20)
--- NOTE | 2024-04-25 09:46 | W.PN.PUL3 ---
Today's Communication / Plan
-
Start systemic steroids given CRP is highly elevated (>270) --> wean as he clinically improves
Check CXR and consider diuresis
Trend BNP
Symbicort/Spiriva as he uses Breztri at home
Antibiotics as per ID
Defer diuretics to cardiology
Defer diet to GI
Holding Eliquis given recent anemia with 1 unit PRBC transfused on 04/23; place SCDs
PT/OT - rec'd skilled rehab on 04/21/2024
Up OOB as tolerated
Incentive spirometer
Pulmonary service will continue to follow along
Assessment
-
79-year-old male with a history of CAD, CVA, hypertension, hyperlipidemia, anxiety, recently released from [facility] after biliary drainage and admitted here with sepsis and acute calculus cholecystitis and transferred to [place] where he
underwent percutaneous cholecystostomy and discharged on oral antibiotics-admitted 04/20/2024 with generalized weakness and delirium and pulmonary consulted on 04/23/2024 for possible pneumonia.
Impression:
Acute HFpEF exacerbation
Interstitial lung disease-Atypical pneumonia , CHF, noninfectious inflammatory lung disease including drug reaction,-i.e. amiodarone-
Pneumonia
Atrial fibrillation
Anemia requiring 1 unit PRBC transfusion on 04/23/2024
Acute calculus cholecystitis/possible gangrenous cholecystitis, suspicion of gallbladder perforation, pericholecystic abscess and choledocholithiasis with possible ascending cholangitis
Transferred to [place] 04/16/2024
Status post biliary tree stent and then discharged home 04/20/2024
Leukocytosis - improving
Conditions present prior to admission:
Hypertension.
Hyperlipidemia.
CAD/CABG.
PAD.
Anemia.
Depression.
Atrial fibrillation/) SVT/ablation.
COPD
Former [id number]
History of alcohol abuse
CVA
GERD
AAA
Diverticulosis
Colostomy
AAA repair.
Plan
Respiratory decompensation including hypoxemia + interstitial edema, likely multifactorial-heavy lifelong smoker, underlying COPD, no interstitial abnormalities-fluid, atypical infection or amiodarone are possibilities
Reviewed radiographs including recent CTs of the abdomen-lower lung cuts reviewed and groundglass opacifications now noted are new and thus unlikely chronic interstitial lung disease
Supplement oxygen with goal SpO2 88-95%
Spiriva + Symbicort
Aspiration precautions
Incentive spirometry encouraged 10x per hour for at least 4 hrs a day
Diuresis as tolerated
Monitor intake/output, lower extremity edema, renal function, weight
ProBNP elevated (>27k on 04/21/2024)
Cardiology following-correspondence [id number] diuresis on hold.
Consider right heart catheterization if intravascular volume status in question
Trend BNP
Atrial fibrillation-Rate control
Amiodarone 400 mg daily-? When was this initiated-appears to be for nonsustained ventricular tachycardia or atrial fibrillation-amiodarone pulmonary toxicity risks increase at this dose
Follow-up blood cultures (collected 04/21/2024 � NGTD); follow-up urine culture (collected 04/21/2024 - NGTD)
Continue with antibiotics -currently on Augmentin s/p Zosyn + doxycycline and s/p vancomycin on 04/21
ID consulted - defer Abx to them
Follow radiographically
Given CRP is highly elevated (>270), recommend to start systemic steroids --> prednisone 60mg daily started on 04/25/2024 --> wean as he clinically improves
GI evaluation.
Follow hemoglobin.
Transfuse as needed to keep Hb>7
Defer diet to GI
PPI q12hr
Ongoing smoking cessation counseling-quit smoking 1 month ago
DVT prophylaxis-was on Eliquis-now held due to anemia; continue SCDs
GI prophylaxis- on PPI
Nutrition per GI.
Early mobilization.
Reviewed with primary team
Recommend outpatient pulmonary evaluation-ongoing radiographic follow-up, full PFTs including diffusing capacity, ongoing smoking cessation counseling, etc.
Pulmonary service will continue to follow along
Diagnostic data:
Chest x-ray 01/28/17-NAD.
Chest x-ray 07/31/23-NAD.
Chest x-ray 08/30-mild interstitial opacifications improved.
Chest x-ray 04/15/2024-mild cardiomegaly, mild CHF
Chest x-ray 04/21/2024-mild CHF
CT abdomen 06/10/23-advanced atherosclerotic disease and peripheral vascular disease, basilar lung cuts. No obvious ILD
CT abdomen and pelvis 04/15/24-mild dependent subsegmental atelectasis
CT abdomen and pelvis 04/22/2024-tip of cholecystostomy tube and decompressed gallbladder, small amount of gas in the gallbladder, new interstitial airway disease right middle lobe and lingula, moderate left-sided renal cortical atrophy
CT chest 04/23/2024-severe groundglass opacities bilaterally most pronounced the upper lobes with some bronchiectasis-interstitial pneumonia, worsening interstitial fibrosis or atypical pulm edema on the differential
Total time spent today was 38 minutes for this encounter. Time includes reviewing laboratory test/imaging results, reviewing pertinent medical records, obtaining and reviewing medical history, performing an appropriate exam, ordering medications,
tests and procedures. Time also includes documentation of this encounter, coordinating patient care and communicating with other healthcare professionals. Total time does not include separately billed tests performed on this date of service.
Subjective Data
-
Date of Service:
Date of Service: April 25, 2024
Chief Complaint: Pulmonary Follow Up
Subjective:
Patient was seen and evaluated today at bedside. He is frustrated because he is eager to go home. Currently, nasal cannula is off of his face and he is breathing comfortably. No acute events reported overnight. Afebrile overnight. Currently
denies chest pain, OLIVAS, nausea, SOB at rest, fevers or chills.
Review of Systems
General: Other (Negative unless mentioned above)
Objective Data
Data Reviewed
Vital Signs / I&O / Oxygen:
Vital Signs
Temp Pulse Resp BP Pulse Ox
98.0 F 84 18 116/61 95
04/25/24 08:03 04/25/24 08:03 04/25/24 08:03 04/25/24 08:03 04/25/24 08:03
Intake and Output
04/24/24 04/25/24 04/26/24
06:59 06:59 06:59
Intake Total 590 / 590 2440 / 2440
Output Total 75 / 75 200 / 200
Balance 515 / 515 2240 / 2240
SaO2 95
Nasal Cannula flow liters per 2
minute
Physical Exam
General: Respiratory Distress (negative), Comfortable, Chills (negative) and Sweats (negative)
HEENT: Normocephalic and Anicteric
Cardiovascular: S1-S2 and Peripheral Edema (negative)
Respiratory: Wheeze (negative), Crackles (Bilaterally), Rhonchi (negative) and Non-Labored Respirations
GI: Soft, Non Distended, Non Tender and Normal Bowel Sounds
Neurology: Awake, Alert and Tremors (negative)
Skin: Warm, Dry, Cyanosis (negative) and Jaundice (negative)
Labs/Micro/Reports
Lab Data
04/25/24 05:08
04/25/24 05:08
Microbiology
04/21/24 08:12 Blood/Venous Blood Culture - Preliminary
No Growth in 4 days- Final report to follow
04/21/24 07:38 Blood/Venous Blood Culture - Preliminary
No Growth in 4 days- Final report to follow
04/22/24 12:21 Urine Legionella Urinary Antigen - Final
Negative for Legionella pneumophila Serogroup 1 antigen.
A negative result does not rule out the possiblity of
Legionella infection due to other serogroups or species of
Legionella. Clinical correlation is recommended.
04/22/24 12:21 Urine Streptococcus pneumoniae Antigen (M - Final
Negative for Streptococcus pneumoniae antigen.
A negative result does not exclude infection with
Streptococcus pneumoniae. Clinical correlation is
recommended.
04/21/24 01:53 Urine Urine Culture - Final
NO GROWTH
04/21/24 01:53 Nose MRSA Screen - Final
No Methicillin Resistant Staphylococcus aureus isolated.
[2024-04-25] MEDS: DELTASONE 60 MG PO (09:54)
[2024-04-25 11:03] VITALS: BP 119/54
--- NOTE | 2024-04-25 11:56 | W.PN.HOSP.TC ---
Today's Communication/Plan
-
Steroids
monitor and attempt to wean off O2
Might need to go home on O2 - depending on the progress over the next 24-48h
No significant volume overload or weight gain, no Lasix given.
Discussed with son
Assessment / Plan
Assessment / Plan
79yo M with PMHx of PAD s/p stents, AAA s/p repair, CKD, PMR, solitary L kidney, colectomy s/p colostomy, CVA in 2021, memory impairment, permanent Afib, HTN, CAD s/p PCI and CABG, NSVT, HLD, recent admission to with elevated LFT, found
cholecystitis with colangitis complicated by bacteremia, then transferred to [facility] for ERCP, had biliary drain placed and discharged on 04/20/24, however became progressively weak and confused, had episode of urinary incontinence on his
way home and brought back to with concern for need for rehab. found hypoxic and with possible UTI. Patient is recent smoker. Managed for multifocal pneumonia, possible ILD and minor volume overload. Developed GIB.
Not much improvement on initial Abx, so pulmonary and ID involved in further care and recommended to stop treating infectious pneumonia. Due to high ESR and ground-glass findings on chest CT - agreed to start steroids
A/P:
#Acute hypoxic respiratory failure
#Pulmonary edema 2/2 acute on chronic HFpEF exacerbation
#multifocal pneumonia
COVID-19 and influenza neg
Broad spectrum Abx
Stop Vanco since MRSA screen neg
Legionella and S.pneumonia urinary Ag neg
Lasix stopped as no significant concern for volume overload by cardiology. Might still need RHC if questionable
Echo: EF 55%, No wall motion abnormalities seen, Mild to moderate basal septal hypertrophy, Estimated pulmonary artery pressure of 35 mmHg, no change since August 2023
Pulm consult
ID consult: stop IV abx - switch to Augmentin to complete course for Cholecystitis
ESR 100 - reasonable for steroids trial - started on 04/25/24
#Hypokalemia
2/2 diuresis
replete and follow
#Acute blood loss on chronic MERRITT anemia with Melena
Black stool in stoma on 04/23/24
Hold Eliquis
PPI drip
GI consult: monitoring Hgb off Eliquis and on PPI
#Mild thrombocytopenia
follow CBC
Low 4T score and patient is on Eliquis - check HIT Ab, cont Eliquis
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
#Ischemic colitis, postop vascular surgery S/P colostomy
cont colostomy care
#UTI ruled out
Ucx neg
#Gangrenous Cholecystitis s/p perc aashish with ascending cholangitis and bacteremia
perc aashish draining well - plan by Parmjit for drain check in 4-6 weeks - continue to follow established outpatient plan
CT confirmed appropriate PRAKASH drain position
ERCP with stone extraction on 04/20/24
Zosyn switched to Augmentin by ID
repeated Bcx Ntd
follow LFT
#Solitary L kidney with CKD stage 3a
Cr elevation 2/2 anemia, hypoxia, diuresis
#Afib, permanent
#HLD
#Chronic anemia
#Essential HTN
#PMR
#Hx of CVA
#AAA s/p repair
#Colostomy
#NSVT
#Essential HTN
Titrate antihypertensives to target normotension
cont rest of medications
telemetry
#Severe Protein calorie Malnutrition
supplements
email marketing coordinator follows
DVT ppx SCDs
Full code
I have spent at least 59min relieving chart, test results, communication with consultants and direct patient care
Anticipated Discharge: > 48 hours
Subjective/Interval History
-
Date of Service: April 25, 2024
Objective Data
-
Labs:
Laboratory Results
04/25/24
05:08
WBC 15.8 H
Hgb 7.8 L
Hct 23.8 L
Plt Count 282
Sodium 136
Potassium 3.5
Chloride 102
Carbon Dioxide 26
BUN 26 H
Creatinine 1.7 H
Glucose 95
Calcium 8.5
Total Bilirubin 0.6
AST 101 H
ALT 78 H
Alkaline Phosphatase 194 H
Vital Signs:
Vital Signs
Temp Pulse Resp BP Pulse Ox
97.7 F 73 18 119/54 96
04/25/24 11:03 04/25/24 11:03 04/25/24 11:03 04/25/24 11:03 04/25/24 11:03
I&O
04/24/24 04/25/24 04/26/24
06:59 06:59 06:59
Intake Total 590 / 590 2440 / 2440
Output Total 75 / 75 200 / 200 200 / 200
Balance 515 / 515 2240 / 2240 -200 / -200
Review of Systems
-
History Source: Patient
All other systems: Reviewed and negative
Respiratory: Reports Trouble Breathing
Physical Exam
-
General: Comfortable
HEENT: Normocephalic and Atraumatic
Respiratory: Clear to Auscultation
Cardiac: Regular Rhythm
GI: Soft, Nontender and Nondistended
Genito-urinary: No Costovertebral Tender
Musculoskeletal: No Clubbing, No Cyanosis and No Edema
Neuro: Awake
Psych: Calm
--- NOTE | 2024-04-25 12:54 | W.PN.ID1 ---
Date of Service
Date of Service: April 25, 2024
Today's Communication
Last day of Augmentin.
Assessment / Plan
# Leukocytosis - improved
- Suspect due to GIB with drop in H/H, elevated BUN
- Afebrile
- No infectious etiology identified.
- Anticipate WBC will trend up with start of steroid
# Recent E. coli bacteremia/cholangitis/cholecystitis (04/15)
- s/p perc aashish at [place]
- Continue Augmentin 500mg bid through today.
# Ground-glass lung opacities
- Suspect pulm edema. BNP>2700, + SOB, no cough
- Possible ILD/amiodarone toxicity, but SOB/hypoxia too acute. steroid started 04/25
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
Hypertension
Dyslipidemia
Atrial fibrillation on Eliquis
CAD status post stents x 3 and CABG x 3
PAD with 4 stents
CVA
CKD 3B
COPD
Acute calculous cholecystitis s/p perc aashish at [facility] (04/2024)
AAA endograft repair, bilateral femoral endarterectomy complicated by ischemic colitis s/p left colectomy with colostomy 08/2023
Ambulatory dysfunction
Chief Complaint
-: Leukocytosis
Subjective / Review of Systems
Still with SOB. Appetite a little better.
Vital Signs / Physical Exam
Vital Signs
Vital Signs
Temp Pulse Resp BP Pulse Ox
97.7 F 73 18 119/54 96
04/25/24 11:03 04/25/24 11:03 04/25/24 11:03 04/25/24 11:03 04/25/24 11:03
Physical Exam
Constitutional: Comfortable
Eyes: Sclera Anicteric
Cardiovascular: Regular Rate and S1/S2
Pulmonary: Rales
Gastrointestinal: Soft, Non Tender, Non Distended and Other (perc aashish drain with bile. )
Extremities: Negative Edema
Neurological: AO x 3
Objective Data
Lab Data
Lab Results
04/25/24 05:08
04/25/24 05:08
ESR 100 mm/hour (0-20) H 04/25/24 05:08
Estimated Creat Clear 34 ml/min 04/25/24 05:08
Lactic Acid 1.3 mmol/L (0.7-2.0) 04/20/24 20:41
Total Bilirubin 0.6 mg/dl (0.2-1.3) 04/25/24 05:08
AST 101 U/L (17-59) H 04/25/24 05:08
ALT 78 U/L (0-50) H 04/25/24 05:08
Alkaline Phosphatase 194 U/L (38-126) H 04/25/24 05:08
C-Reactive Protein > 270.00 mg/L (0.0-10.00) H 04/25/24 05:08
Most recent labs reviewed.
Micro Results:
04/21/24 08:12 Blood Culture - Preliminary
Blood/Venous No Growth in 4 days- Final report to follow
04/21/24 07:38 Blood Culture - Preliminary
Blood/Venous No Growth in 4 days- Final report to follow
04/22/24 12:21 Legionella Urinary Antigen - Final
Urine Negative for Legionella pneumophila Serogroup 1 antigen.
A negative result does not rule out the possiblity of
Legionella infection due to other serogroups or species of
Legionella. Clinical correlation is recommended.
Streptococcus pneumoniae Antigen (M - Final
Negative for Streptococcus pneumoniae antigen.
A negative result does not exclude infection with
Streptococcus pneumoniae. Clinical correlation is
recommended.
04/21/24 01:53 Urine Culture - Final
Urine NO GROWTH
04/21/24 01:53 MRSA Screen - Final
Nose No Methicillin Resistant Staphylococcus aureus isolated.
04/21/24 13:26 Influenza Types A & B (PRASAD) - Final
Nasal Swab Negative for Influenza A & B, NAAT
Negative results must be combined with clinical observations
and patient history.
Nucleic Acid Amplification test (NAAT)performed on the
[employer] platform.
04/23/[address]: Severe groundglass opacity is seen bilaterally, most pronounced within the upper lung zones. There is fine reticular interstitial thickening and bronchiectasis, also most pronounced within the upper lobes on each side.
2. Differential diagnosis includes severe interstitial pneumonia, worsening interstitial fibrosis compared to 08/14/2023, an atypical pulmonary edema.
04/22/24 CT a/p: The tip of the cholecystotomy tube is in the decompressed gallbladder. There is a small amount of gas in the gallbladder. There is new interstitial airway disease in the basilar portions of the right middle lobe and lingula and to a
lesser extent in the basilar portions of both lower lobes suggesting interstitial pneumonia and associated with minimal bilateral pleural effusions. Stable aortobiiliac graft.
04/21/24 CXR: Pulmonary findings suggest pulmonary edema. Diffuse pneumonia is also possible.
[2024-04-25 14:57] VITALS: BP 119/62
--- NOTE | 2024-04-25 15:04 | W.PN.GI.CBS2 ---
Today's Communication / Plan
-
-- Monitor clinical course, continue to hold Eliquis for now PPI twice daily And continue low residue diet
Assessment / Plan
-
Aveyr is a complicated 78-year-old male with multiple comorbidities including atrial fibrillation on Eliquis, prior stroke, significant vascular disease who also underwent an elective bilateral femoral endarterectomy and vascular intervention for
AAA with unfortunate subsequent ischemic colitis requiring open left colectomy and distal transverse colostomy with prolonged recovery. He was just here last week with gangrenous cholecystitis and suspicion for gallbladder perforation abscess and
choledocholithiasis with cholangitis. We do not have his records but I percutaneous cholecystostomy was placed. Upon discharge from [place] on 04/20/2024 he became confused in the car ride home, delirious had an episode of urinary incontinence
and was brought back to [facility] with concern for need for rehab. He was found hypoxemic with a possible UTI and pneumonia. We were called today on 04/23/2024 because of black liquid in his ostomy with a drop in hemoglobin. On
admission he was 8.3 yesterday on's 04/22 7.5 and on 04/23 down to 6.7.
He did receive 1 unit of blood and responded to 7.4. His Eliquis has been on hold. He denies any GI symptoms including no lightheadedness or dizziness. His blood pressure is 137/62 heart rate of 81. No dysphagia heartburn nausea vomiting
abdominal pain. He does not want to answer many questions and states he is cold. He is alert and awake
On exam his abdomen is soft, nontender and his ostomy bag is leaking small amount of liquid melena.
other med problems:
-afib on Eliquis prior to admission/prior SVT/ablation
-HTN
-hyperlipidemia
-CAD/CABG
-PAD with prior b/l fem endarterectomy and vascular intervention for AAA with subsequent ischemic colitis requiring left colectomy with colostomy 07/2023
-Depression
Atrial fibrillation/SVT/ablation.
-COPD tobacco abuse
-prior CVA
-GERD
-Diverticulosis
PLAN:
# GI bleed -hemodynamically stable was on Eliquis (unsure, but suspected 04/23)
--Patient states his ostomy bag has been liquid and very dark since it was placed back in July
--Since surgery his hemoglobin has ranged around 7-9, patient states his last GI procedures were back in [address] Phillips
-- states he did not have an ERCP after I described it at [place]. He said they just placed the biliary drain and discharged him.
--- Etiology could be esophagitis, ulcer, angioectasia, neoplasm -patient is also on doxycycline which can be very irritating. Make sure to sit upright after taking doxycycline and wash it down with plenty of liquids
-- It does not appear he was on ppi as an outpatient but it is possible
-- PPI BID, hold Eliquis, status post 1 unit on 04/23/2024 with good response and stool output is less dark today
-- Patient on full liquids - advance today
-- Get records from [place] -request sent again today- chart checked, nothing yet
--Monitor. Hopefully bleeding will stop with holding Eliquis and PPI BID
- if no improvement, consider EGD
- patient is high risk for CVA and will need Eliquis will see how he does
-dark heme + stool
-anemia acute on chronic
-concern for hypoxemia/PNA/CHF
-recent acute calculus cholecystitis /possible gangrenous GB with suspected perf, choledocholithiasis, s/p aashish tube and ? intervention at [place] 04/2024
-leukocytosis
Pending his levels and hospital course, consider EGD
Subjective
Subjective
Date of Service: April 25, 2024
Objective
Data Reviewed
Laboratory Data:
Laboratory Results
04/25/24 05:08
04/25/24 05:08
Laboratory Results
Magnesium 2.2 mg/dl (1.6-2.3) 04/24/24 07:13
Total Bilirubin 0.6 mg/dl (0.2-1.3) 04/25/24 05:08
AST 101 U/L (17-59) H 04/25/24 05:08
ALT 78 U/L (0-50) H 04/25/24 05:08
Alkaline Phosphatase 194 U/L (38-126) H 04/25/24 05:08
Vital Signs and I&O:
Vital Signs
Temp Pulse Resp BP Pulse Ox
97.9 F 75 20 119/62 94
04/25/24 14:57 04/25/24 14:57 04/25/24 14:57 04/25/24 14:57 04/25/24 14:57
I&O
04/24/24 04/25/24 04/26/24
06:59 06:59 06:59
Intake Total 590 / 590 2440 / 2440
Output Total 75 / 75 200 / 200 200 / 200
Balance 515 / 515 2240 / 2240 -200 / -200
[2024-04-25] MEDS: CRESTOR 40 MG PO (17:15)
[2024-04-25 20:31] VITALS: BP 116/56
[2024-04-25 23:30] VITALS: BP 133/60
[2024-04-25] MEDS: MELATONIN 3 MG PO (23:46)
[2024-04-26] VITALS (7 sets, daily range): BP systolic 110–146; BP diastolic 50–69; PULSE 69; O2SAT 98; BMI 22.6
[2024-04-26] MEDS: SYMBICORT 160/4.5 MCG INHALER 2 PUFF INH ×2 (08:19→19:51)
[2024-04-26] MEDS: SPIRIVA RESPIMAT 2.5 MCG 2 PUFF INH ×2 (08:19→19:51)
[2024-04-26 08:45] LABS: % Basophils 0.1 % (0-2); % Immature Granulocytes 0.7 % (0-0.5); % Lymphocytes 3.2 % (20.5-51.1); % Monocytes 3.8 % (1.7-9.3); % Neutrophils 92.2 % (42.2-75.2); Absolute Immature Granulocytes 0.1 10^3/uL (0-0.05); Absolute Lymphocytes 0.6 10^3/uL (1.2-3.4); Absolute Monocytes 0.7 10^3/uL (0.1-0.6); Absolute Neutrophils 15.6 10^3/uL (1.4-6.5); Hematocrit 24.5 % (39.0-52.0); Mean Corp Hgb Conc. 32.7 g/dL (33.0-37.0); Mean Corpuscular Hgb 27.4 pg (27.0-31.0); Mean Corpuscular Volume 83.9 fL (80.0-94.0); Mean Platelet Volume 11.4 fL (7.4-10.4); Nucleated Red Blood Cells % 0 % (-); Platelet Count 328 10^3/uL (130-400); Red Blood Cell Count 2.92 10^6/uL (4.70-6.10); Red Cell Dist. Width 18.6 % (11.5-14.5)
[2024-04-26] MEDS: NORVASC 10 MG PO (08:55)
[2024-04-26] MEDS: PACERONE 400 MG PO (08:55)
[2024-04-26] MEDS: ZINC 50 MG PO (08:55)
[2024-04-26] MEDS: FLOMAX 0.4 MG PO (08:55)
[2024-04-26] MEDS: AUGMENTIN 500 MG/125 MG 1 TABLET PO (08:55)
[2024-04-26] MEDS: DELTASONE 60 MG PO (08:55)
[2024-04-26] MEDS: B COMPLEX w/VITAMIN C 1 CAPLET PO (08:55)
[2024-04-26] MEDS: COREG 12.5 MG PO ×2 (08:55→19:37)
[2024-04-26] MEDS: FOLVITE 1 MG PO (08:55)
[2024-04-26] MEDS: VITAMIN D3 (cholecalciferol) 50 MCG PO (08:55)
[2024-04-26] MEDS: ZYRTEC 10 MG PO (08:55)
[2024-04-26] MEDS: APRESOLINE 50 MG PO ×3 (08:55→21:25)
[2024-04-26] MEDS: PROTONIX IV 40 MG IV (09:00)
[2024-04-26] MEDS: NSS (PRESERVATIVE FREE) 10 ML IV (09:00)
[2024-04-26 09:07] LABS: NT-proBNP 10200 pg/ml
--- NOTE | 2024-04-26 09:27 | W.PN.PUL3 ---
Today's Communication / Plan
-
Doing well, off oxygen, no new complaints
Diuresis per cards team, recs to follow
Currently on inhalers, has history of COPD but is not sure if he has OP pulm doc
Needs outpatient FU, we will add our contact info for follow up
Otherwise, ok for d/c from our perspective
Will sign off at this time, please call with questions
Assessment
-
79-year-old male with a history of CAD, CVA, hypertension, hyperlipidemia, anxiety, recently released from [facility] after biliary drainage and admitted here with sepsis and acute calculus cholecystitis and transferred to [place] where he
underwent percutaneous cholecystostomy and discharged on oral antibiotics-admitted 04/20/2024 with generalized weakness and delirium and pulmonary consulted on 04/23/2024 for possible pneumonia.
Impression:
Acute HFpEF exacerbation
Interstitial lung disease-Atypical pneumonia , CHF, noninfectious inflammatory lung disease including drug reaction,-i.e. amiodarone-
Pneumonia
Atrial fibrillation
Anemia requiring 1 unit PRBC transfusion on 04/23/2024
Acute calculus cholecystitis/possible gangrenous cholecystitis, suspicion of gallbladder perforation, pericholecystic abscess and choledocholithiasis with possible ascending cholangitis
Transferred to [place] 04/16/2024
Status post biliary tree stent and then discharged home 04/20/2024
Leukocytosis - improving
Conditions present prior to admission:
Hypertension.
Hyperlipidemia.
CAD/CABG.
PAD.
Anemia.
Depression.
Atrial fibrillation/) SVT/ablation.
COPD
Former [id number]
History of alcohol abuse
CVA
GERD
AAA
Diverticulosis
Colostomy
AAA repair.
Plan
Respiratory decompensation including hypoxemia + interstitial edema, likely multifactorial-heavy lifelong smoker, underlying COPD, no interstitial abnormalities-fluid, atypical infection or amiodarone are possibilities
Reviewed radiographs including recent CTs of the abdomen-lower lung cuts reviewed and groundglass opacifications now noted are new and thus unlikely chronic interstitial lung disease
Supplement oxygen with goal SpO2 88-95%
Currently on RA, doing well
Spiriva + Symbicort
Aspiration precautions
Incentive spirometry encouraged 10x per hour for at least 4 hrs a day
Diuresis as tolerated
Monitor intake/output, lower extremity edema, renal function, weight
ProBNP elevated (>27k on 04/21/2024)
Cardiology following-correspondence [id number] diuresis on hold.
Consider right heart catheterization if intravascular volume status in question
Trend BNP
Atrial fibrillation-Rate control
Amiodarone 400 mg daily-? When was this initiated-appears to be for nonsustained ventricular tachycardia or atrial fibrillation-amiodarone pulmonary toxicity risks increase at this dose
Follow-up blood cultures (collected 04/21/2024 � NGTD); follow-up urine culture (collected 04/21/2024 - NGTD)
Continue with antibiotics -currently on Augmentin s/p Zosyn + doxycycline and s/p vancomycin on 04/21
ID consulted - defer Abx to them
Follow radiographically
Given CRP is highly elevated (>270), recommend to start systemic steroids --> prednisone 60mg daily started on 04/25/2024 --> wean as he clinically improves
GI evaluation.
Follow hemoglobin.
Transfuse as needed to keep Hb>7
Defer diet to GI
PPI q12hr
Ongoing smoking cessation counseling-quit smoking 1 month ago
DVT prophylaxis-was on Eliquis-now held due to anemia; continue SCDs
GI prophylaxis- on PPI
Nutrition per GI.
Early mobilization.
Reviewed with primary team
Recommend outpatient pulmonary evaluation-ongoing radiographic follow-up, full PFTs including diffusing capacity, ongoing smoking cessation counseling, etc.
He is not sure if he sees a pulmonary doc as OP, we will add our contact for referral if he does not
Diagnostic Data:
Chest x-ray 01/28/17-NAD.
Chest x-ray 07/31/23-NAD.
Chest x-ray 08/31/23-mild interstitial opacifications improved.
Chest x-ray 04/15/2024-mild cardiomegaly, mild CHF
Chest x-ray 04/21/2024-mild CHF
CT abdomen 06/10/23-advanced atherosclerotic disease and peripheral vascular disease, basilar lung cuts. No obvious ILD
CT abdomen and pelvis 04/15/24-mild dependent subsegmental atelectasis
CT abdomen and pelvis 04/22/2024-tip of cholecystostomy tube and decompressed gallbladder, small amount of gas in the gallbladder, new interstitial airway disease right middle lobe and lingula, moderate left-sided renal cortical atrophy
CT chest 04/23/2024-severe groundglass opacities bilaterally most pronounced the upper lobes with some bronchiectasis-interstitial pneumonia, worsening interstitial fibrosis or atypical pulm edema on the differential
ECHO 04/21/24- Normal LV size with grossly normal function. LVEF is approximately 55% by visual estimation. No wall motion abnormalities seen, however, poor endocardial definition. Mild to moderate basal septal hypertrophy. Normal right
ventricular size and function. Mild mitral regurgitation. Estimated pulmonary artery pressure of 35 mmHg assuming a right atrial pressure of 3 mmHg. Compared to prior from August 11, 2023, no significant change.
PFT 01/07/17- FEV1 2.5L 79%, FVC 3.19L 74%, ratio 78. Post FEV1 2.57L 82% no BD response. TLC 6.39L 90%, DLCO 62%, corrected 72%
-----
Total time spent today was 50 minutes for this encounter. Time includes reviewing laboratory test/imaging results, reviewing pertinent medical records, obtaining and reviewing medical history, performing an appropriate exam, ordering medications,
tests and procedures. Time also includes documentation of this encounter, coordinating patient care and communicating with other healthcare professionals. Total time does not include separately billed tests performed on this date of service.
Subjective Data
-
Date of Service:
Date of Service: April 26, 2024
Chief Complaint: Pulmonary Follow Up
Subjective:
Doing well today, not wearing his o2
Feels his breathing is good, no new complaints
Sitting in chair, ready to go home
Objective Data
Data Reviewed
Vital Signs / I&O / Oxygen:
Vital Signs
Temp Pulse Resp BP Pulse Ox
97.6 F 67 18 146/66 100
04/26/24 07:25 04/26/24 08:21 04/26/24 08:21 04/26/24 07:25 04/26/24 08:21
Intake and Output
04/25/24 04/26/24 04/27/24
06:59 06:59 06:59
Intake Total 2440 / 2440 600 / 600
Output Total 200 / 200 1050 / 1050
Balance 2240 / 2240 -450 / -450
SaO2 100
Nasal Cannula flow liters per 2
minute
Physical Exam
General: Respiratory Distress (negative), Comfortable, Chills (negative), Sweats (negative) and Good Appetite
HEENT: Normocephalic, Anicteric and Moist Mucous Membranes
Cardiovascular: S1-S2, Regular Rhythm and Peripheral Edema (negative)
Respiratory: Clear and Non-Labored Respirations
GI: Soft, Non Distended, Non Tender and Normal Bowel Sounds
Neurology: Awake, Alert, No Motor Deficits and Tremors (negative)
Skin: Warm, Dry, Cyanosis (negative) and Jaundice (negative)
Labs/Micro/Reports
Lab Data
04/26/24 08:00
Microbiology
04/21/24 08:12 Blood/Venous Blood Culture - Final
No Growth - Final Report
04/21/24 07:38 Blood/Venous Blood Culture - Final
No Growth - Final Report
04/22/24 12:21 Urine Legionella Urinary Antigen - Final
Negative for Legionella pneumophila Serogroup 1 antigen.
A negative result does not rule out the possiblity of
Legionella infection due to other serogroups or species of
Legionella. Clinical correlation is recommended.
04/22/24 12:21 Urine Streptococcus pneumoniae Antigen (M - Final
Negative for Streptococcus pneumoniae antigen.
A negative result does not exclude infection with
Streptococcus pneumoniae. Clinical correlation is
recommended.
[2024-04-26 09:28] LABS: ALT (SGPT) 90 U/L (0-50); AST (SGOT) 127 U/L (17-59); Albumin 2.4 g/dl (3.5-5.0); Alkaline Phosphatase 241 U/L (38-126); Blood Urea Nitrogen 32 mg/dl (9-20); Calcium 8.6 mg/dl (8.4-10.2); Carbon Dioxide 27 mmol/L (22-30); Chloride 102 mmol/L (98-107); Estimated Creatinine Clearance 37 ml/min; Glucose 106 mg/dl (70-99); Potassium 3.6 mmol/L (3.5-5.1); Sodium 135 mmol/L (135-145); Total Bilirubin 0.5 mg/dl (0.2-1.3); Total Protein 5.6 g/dl (6.3-8.2); eGFR 43.29
--- NOTE | 2024-04-26 10:40 | W.PN.ID1 ---
Date of Service
Date of Service: April 26, 2024
Today's Communication
Completed abx.
ID will sign off.
Assessment / Plan
# Leukocytosis
-No infectious etiology identified.
- Initial elev WBC suspect due to GIB with drop in H/H, elevated BUN
- Leukocytosis WAS trending down (off steroid)
- WBC now trending up due to steroid as expected. Steroid started 04/25.
# Recent E. coli bacteremia/cholangitis/cholecystitis (04/15)
- s/p perc aashish at [place]
- Completed ABX/Augmentin today. DC abx.
# Ground-glass lung opacities
- Possible ILD/amiodarone toxicity, but SOB/hypoxia too acute.
Clinically responding to steroid started 04/25 with improvement of SOB and oxygen status, now off O2.
ID will sign off.
# Conditions DRIVE THRU ORDER TAKER
Hypertension
Dyslipidemia
Atrial fibrillation on Eliquis
CAD status post stents x 3 and CABG x 3
PAD with 4 stents
CVA
CKD 3B
COPD
Acute calculous cholecystitis s/p perc aashish at [facility] (04/2024)
AAA endograft repair, bilateral femoral endarterectomy complicated by ischemic colitis s/p left colectomy with colostomy 08/2023
Ambulatory dysfunction
Chief Complaint
-: Leukocytosis
Subjective / Review of Systems
SOB better. Now off oxygen.
Vital Signs / Physical Exam
Vital Signs
Vital Signs
Temp Pulse Resp BP Pulse Ox
97.6 F 67 18 146/66 100
04/26/24 07:25 04/26/24 08:21 04/26/24 08:21 04/26/24 07:25 04/26/24 08:21
Physical Exam
Constitutional: No Acute Distress, Comfortable and Chronically Ill
Pulmonary: Other (Decreased breathe sound BL)
Gastrointestinal: Soft, Non Tender, Non Distended, Normal Bowel Sounds and Other (perc aashish with bile)
Extremities: Negative Edema
Neurological: AO x 3
Objective Data
Lab Data
Lab Results
04/26/24 08:00
04/26/24 08:00
ESR 100 mm/hour (0-20) H 04/25/24 05:08
Estimated Creat Clear 37 ml/min 04/26/24 08:00
Lactic Acid 1.3 mmol/L (0.7-2.0) 04/20/24 20:41
Total Bilirubin 0.5 mg/dl (0.2-1.3) 04/26/24 08:00
AST 127 U/L (17-59) H 04/26/24 08:00
ALT 90 U/L (0-50) H 04/26/24 08:00
Alkaline Phosphatase 241 U/L (38-126) H 04/26/24 08:00
C-Reactive Protein > 270.00 mg/L (0.0-10.00) H 04/25/24 05:08
Most recent labs reviewed.
Micro Results:
04/21/24 08:12 Blood Culture - Final
Blood/Venous No Growth - Final Report
04/21/24 07:38 Blood Culture - Final
Blood/Venous No Growth - Final Report
04/22/24 12:21 Legionella Urinary Antigen - Final
Urine Negative for Legionella pneumophila Serogroup 1 antigen.
A negative result does not rule out the possiblity of
Legionella infection due to other serogroups or species of
Legionella. Clinical correlation is recommended.
Streptococcus pneumoniae Antigen (M - Final
Negative for Streptococcus pneumoniae antigen.
A negative result does not exclude infection with
Streptococcus pneumoniae. Clinical correlation is
recommended.
04/21/24 01:53 Urine Culture - Final
Urine NO GROWTH
04/21/24 01:53 MRSA Screen - Final
Nose No Methicillin Resistant Staphylococcus aureus isolated.
04/21/24 13:26 Influenza Types A & B (PRASAD) - Final
Nasal Swab Negative for Influenza A & B, NAAT
Negative results must be combined with clinical observations
and patient history.
Nucleic Acid Amplification test (NAAT)performed on the
[employer] platform.
04/23/[address]: Severe groundglass opacity is seen bilaterally, most pronounced within the upper lung zones. There is fine reticular interstitial thickening and bronchiectasis, also most pronounced within the upper lobes on each side.
2. Differential diagnosis includes severe interstitial pneumonia, worsening interstitial fibrosis compared to 08/14/2023, an atypical pulmonary edema.
04/22/24 CT a/p: The tip of the cholecystotomy tube is in the decompressed gallbladder. There is a small amount of gas in the gallbladder. There is new interstitial airway disease in the basilar portions of the right middle lobe and lingula and to a
lesser extent in the basilar portions of both lower lobes suggesting interstitial pneumonia and associated with minimal bilateral pleural effusions. Stable aortobiiliac graft.
04/21/24 CXR: Pulmonary findings suggest pulmonary edema. Diffuse pneumonia is also possible.
--- NOTE | 2024-04-26 14:44 | W.PN.GI.CBS2 ---
Addendum entered and electronically signed by Paty Zamora DO 04/26/24 16:17:
Patient seen and examined independently of FISHING WORKER. I agree with her note with additions below.
Stools are still dark brown and loose but slightly more formed. His hemoglobin has been maintaining but off Eliquis. Currently he is getting ready for discharge. We will restart the Eliquis tonight and ensure his hemoglobin stays stable. If it
does not stay stable may require endoscopic evaluation.
Will need to go home on twice daily PPI for 1 month, then once daily indefinitely.
Continue low residue diet in the setting of ostomy.
Still waiting on [place] records
He has no significant complaints at this time. His doxycycline has been stopped.
Original Note:
Today's Communication / Plan
-
# GI bleed -hemodynamically stable remains off Eliquis
Etiology unclear --- Etiology could be esophagitis, ulcer, angioectasia, neoplasm vs other pt was on Doxycycline which can be irritating
only 1 unit needed since admission
ostomy bag with persistent dark stools
baseline hbg 7-9
per patient no GI procedure just biliary drain placed-- still awaiting [place] records
with review with Dr. Zamora and Dr. Palmer for Eliquis resume as high risk with hx CVA-- will need close watch for drop in hbg after restart consider start tonight repeat hbg in AM and recheck 1 week after discharge
cont PPI BID
left contact for OP follow up -- if anemia persists consider OP EGD if improved from cardio pulm standpoint
cont low residue diet
Assessment / Plan
-
Avery is a complicated 78-year-old male with multiple comorbidities including atrial fibrillation on Eliquis, prior stroke, significant vascular disease who also underwent an elective bilateral femoral endarterectomy and vascular intervention for
AAA with unfortunate subsequent ischemic colitis requiring open left colectomy and distal transverse colostomy with prolonged recovery. He was just here last week with gangrenous cholecystitis and suspicion for gallbladder perforation abscess and
choledocholithiasis with cholangitis. We do not have his records but I percutaneous cholecystostomy was placed. Upon discharge from [place] on 04/20/2024 he became confused in the car ride home, delirious had an episode of urinary incontinence
and was brought back to [facility] with concern for need for rehab. He was found hypoxemic with a possible UTI and pneumonia. We were called today on 04/23/2024 because of black liquid in his ostomy with a drop in hemoglobin. On
admission he was 8.3 yesterday on's 04/22 7.5 and on 04/23 down to 6.7. now stable since admission but Eliquis not resumed. Pt reports persistent dark stools for months.
-anemia
-black stools
-concern for PNA on admission
-recent acute calculus cholecystitis /possible gangrenous GB with suspected perf, choledocholithiasis, s/p aashish tube and ? intervention at [place] 04/2024
-leukocytosis
other med problems:
-afib on Eliquis prior to admission/prior SVT/ablation
-HTN
-hyperlipidemia
-CAD/CABG
-PAD with prior b/l fem endarterectomy and vascular intervention for AAA with subsequent ischemic colitis requiring left colectomy with colostomy 07/2023
-Depression
Atrial fibrillation/SVT/ablation.
-COPD tobacco abuse
-prior CVA
-GERD
-Diverticulosis
PLAN:
# GI bleed -hemodynamically stable remains off Eliquis
Etiology unclear --- Etiology could be esophagitis, ulcer, angioectasia, neoplasm vs other pt was on Doxycycline which can be irritating
only 1 unit needed since admission
ostomy bag with persistent dark stools
baseline hbg 7-9
per patient no GI procedure just biliary drain placed-- still awaiting [place] records
with review with Dr. Zamora and Dr. Palmer for Eliquis resume as high risk with hx CVA-- will need close watch for drop in hbg after restart consider start tonight repeat hbg in AM and recheck 1 week after discharge
cont PPI BID
left contact for OP follow up -- if anemia persists consider OP EGD if improved from cardio pulm standpoint
cont low residue diet
Subjective
Subjective
Date of Service: April 26, 2024
brown stool on low residue diet
Objective
Data Reviewed
Laboratory Data:
Laboratory Results
04/26/24 08:00
04/26/24 08:00
Laboratory Results
Magnesium 2.2 mg/dl (1.6-2.3) 04/24/24 07:13
Total Bilirubin 0.5 mg/dl (0.2-1.3) 04/26/24 08:00
AST 127 U/L (17-59) H 04/26/24 08:00
ALT 90 U/L (0-50) H 04/26/24 08:00
Alkaline Phosphatase 241 U/L (38-126) H 04/26/24 08:00
Vital Signs and I&O:
Vital Signs
Temp Pulse Resp BP Pulse Ox
97.3 F 69 18 110/50 97
04/26/24 11:16 04/26/24 11:16 04/26/24 11:16 04/26/24 11:16 04/26/24 11:16
I&O
04/25/24 04/26/24 04/27/24
06:59 06:59 06:59
Intake Total 2440 / 2440 600 / 600
Output Total 200 / 200 1050 / 1050 100 / 100
Balance 2240 / 2240 -450 / -450 -100 / -100
Physical Exam
Physical Exam
HEENT: Anicteric and Moist mucous membranes
Cardiology: Normal Sinus Rhythm
Pulmonary: Clear
GI: Soft, Non Distended, Non Tender and Other (biliary drain with green bile )
Extremities: No Edema
Neuro: Other (much more awake and conversant )
--- NOTE | 2024-04-26 15:50 | CM ---
Chart reviewed and patient is currently on room air, need to follow for home oxygen needs at discharge, plan is to home with his son Fabiano and his . Patient has been set up with [facility] visiting nurses in [place]. Spouse at bedside most days.
[facility]
[phone]
[2024-04-26] MEDS: CRESTOR 40 MG PO (16:59)
--- NOTE | 2024-04-26 17:17 | W.PN.HOSP.TC ---
Today's Communication/Plan
-
Assessment / Plan
Assessment / Plan
Physical
NAD, resting in bed comfortable
Scleral anicteric
MMM
No jvd
Diminished breath sounds in bases
Normal s1/s2
Soft nt nd bs+ colostomy bag with dark stool liquid
Perc aashish drain bile
Assessment and Plan
#Acute hypoxic respiratory failure that is believed to be related to possible ILD
-Trial steroids
-Incentive robinson
-Pulm consulted
-Wean o2 as tolerated
#Hypokalemia
2/2 diuresis
replete and follow
#Acute blood loss on chronic MERRITT anemia with Melena
Black stool in stoma on 04/23/24
Will resume tonight, assess for bleeding
PPI PO BID
GI follow up
Afib
Continue amio
Eliquis held, will resume and monitor, if stable hgb in the AM dc home with eliquis and repeat cbc in 1 week
#Mild thrombocytopenia
follow CBC
Low 4T score and patient is on Eliquis - check HIT Ab, cont Eliquis
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
#Ischemic colitis, postop vascular surgery S/P colostomy
cont colostomy care
#UTI ruled out
Ucx neg
#Gangrenous Cholecystitis s/p perc aashish with ascending cholangitis and bacteremia
perc aashish draining well - plan by Parmjit for drain check in 4-6 weeks - continue to follow established outpatient plan
CT confirmed appropriate PRAKASH drain position
ERCP with stone extraction on 04/20/24
Completed ATb
repeated Bcx Ntd
follow LFT
#Solitary L kidney with CKD stage 3a
Cr elevation 2/2 anemia, hypoxia, diuresis
#Severe Protein calorie Malnutrition
supplements
sustainable agriculture specialist follows
DVT ppx SCDs
Full code
I have spent at least 59min relieving chart, test results, communication with consultants and direct patient care
Anticipated Discharge: Within 24 hours
Subjective/Interval History
-
Date of Service: April 26, 2024
seen an dexamined. no new complaints. no acute ovenright events
Objective Data
-
Labs:
Laboratory Results
04/26/24
08:00
WBC 17.0 H
Hgb 8.0 L
Hct 24.5 L
Plt Count 328
Sodium 135
Potassium 3.6
Chloride 102
Carbon Dioxide 27
BUN 32 H
Creatinine 1.6 H
Glucose 106 H
Calcium 8.6
Total Bilirubin 0.5
AST 127 H
ALT 90 H
Alkaline Phosphatase 241 H
Vital Signs:
Vital Signs
Temp Pulse Resp BP Pulse Ox
98.2 F 62 18 121/61 95
04/26/24 15:50 04/26/24 16:59 04/26/24 15:50 04/26/24 16:59 04/26/24 15:50
I&O
04/25/24 04/26/24 04/27/24
06:59 06:59 06:59
Intake Total 2440 / 2440 600 / 600
Output Total 200 / 200 1050 / 1050 100 / 100
Balance 2240 / 2240 -450 / -450 -100 / -100
[2024-04-26] MEDS: ELIQUIS 2.5 MG PO (19:37)
[2024-04-26] MEDS: PROTONIX 40 MG PO (19:37)
[2024-04-27] MEDS: TYLENOL 650 MG PO (02:34)
[2024-04-27 05:04] VITALS: BMI 22.4
[2024-04-27] MEDS: SYMBICORT 160/4.5 MCG INHALER 2 PUFF INH (07:34)
[2024-04-27] MEDS: SPIRIVA RESPIMAT 2.5 MCG 2 PUFF INH (07:35)
[2024-04-27] MEDS: APRESOLINE 50 MG PO (07:44)
[2024-04-27] MEDS: B COMPLEX w/VITAMIN C 1 CAPLET PO (07:44)
[2024-04-27] MEDS: ZINC 50 MG PO (07:44)
[2024-04-27] MEDS: COREG 12.5 MG PO (07:44)
[2024-04-27] MEDS: DELTASONE 60 MG PO (07:44)
[2024-04-27] MEDS: ZYRTEC 10 MG PO (07:45)
[2024-04-27] MEDS: FLOMAX 0.4 MG PO (07:45)
[2024-04-27] MEDS: PROTONIX 40 MG PO (07:45)
[2024-04-27] MEDS: PACERONE 400 MG PO (07:45)
[2024-04-27] MEDS: FOLVITE 1 MG PO (07:45)
[2024-04-27] MEDS: ELIQUIS 2.5 MG PO (07:45)
[2024-04-27] MEDS: NORVASC 10 MG PO (07:45)
[2024-04-27] MEDS: VITAMIN D3 (cholecalciferol) 50 MCG PO (07:45)
[2024-04-27 07:55] VITALS: BP 151/75
[2024-04-27 08:47] LABS: Hemoglobin 8.4 g/dL (13.0-18.0); Mean Corp Hgb Conc. 33.6 g/dL (33.0-37.0); Mean Corpuscular Hgb 28.3 pg (27.0-31.0); Mean Corpuscular Volume 84.2 fL (80.0-94.0); Mean Platelet Volume 11.4 fL (7.4-10.4); Platelet Count 384 10^3/uL (130-400); Red Blood Cell Count 2.97 10^6/uL (4.70-6.10); Red Cell Dist. Width 18.8 % (11.5-14.5); White Blood Cell Count 17.6 10^3/uL (4.8-10.8)
[2024-04-27 09:07] LABS: Blood Urea Nitrogen 36 mg/dl (9-20); Calcium 8.8 mg/dl (8.4-10.2); Carbon Dioxide 25 mmol/L (22-30); Chloride 102 mmol/L (98-107); Estimated Creatinine Clearance 42 ml/min; Glucose 132 mg/dl (70-99); Potassium 3.8 mmol/L (3.5-5.1); Sodium 137 mmol/L (135-145); eGFR 50.81
--- NOTE | 2024-04-27 11:48 | CM ---
Addendum entered by Jossy Eng 04/27/24 13:26:
[facility]

Addendum entered by Jossy Eng 04/27/24 13:18:
Son Aki will transport patient home.
IMM reviewed via phone, copy left bedside.
Plan: home with Capri PHAN
Original Note:
Spoke with daughter in law Leigh, she will be helping to care of her father in law.
Leigh's friend is a nurse and will teach her how to care for colostomy and T-Tube.
Capri PHAN/Susan will be following.
Mother in law has colostomy supplies.
Need to contact Aki re transportation home, he is off Tuesdays and Wednesdays.
Plan: home with Capri Lopez
--- NOTE | 2024-04-27 12:53 | W.DCSUMMARY ---
Discharge Summary
Discharge Data
Date of Admission: 04/21/24
Date of Discharge: 04/27/24
-
Pending Results: No
Hospital Course
79 male history of CAD CVA hypertension hyperlipidemia VA anxiety PVD polymyalgia rheumatica presented with complaints of weakness, confusion and urinary incontinence after being recently discharged from [facility] with a biliary drain in
the setting of acute calculus cholecystitis with gangrenous cholecystitis and concern for perforation with possible ascending cholangitis and is planned for subsequent surgical intervention at [place]. At the time of discharge she was sent home
with Augmentin for which she completed on 04/26/2024.
He was admitted for concerns of UTI and was also found to have acute hypoxemic respiratory failure requiring 4 L O2. Chest x-ray demonstrating potential pulmonary edema and received diuresis. 2D echocardiogram completed. Eventually transition to
oral diuretics. Despite being diuresed remained hypoxic requiring O2 therefore pulmonary was consulted as there was also concern for ILD for which they started steroids that demonstrated clinical improvement. There was also concern for pneumonia
for which infectious disease was involved however no change in antibiotics and was only treated for the gallbladder pathology.
Hospitalization further complicated by anemia on Eliquis has colostomy with dark stools that have been chronic. Eliquis held. Started on Protonix. Evaluated by GI. No EGD completed at this hospitalization. Night prior to discharge was started
on Eliquis however dose was adjusted to age and renal function therefore decreased to 2.5 twice a day from 5 mg twice a day. Hemoglobin remained stable. Need repeat CBC in 1 week.
Will need outpatient GI pulmonary cardiology and PCP follow
2d echo
CONCLUSIONS
Normal LV size with grossly normal function.
LVEF is approximately 55% by visual estimation.
No wall motion abnormalities seen, however, poor endocardial definition.
Mild to moderate basal septal hypertrophy.
Normal right ventricular size and function.
Mild mitral regurgitation.
Estimated pulmonary artery pressure of 35 mmHg assuming a right atrial pressure
of 3 mmHg.
Compared to prior from August 11, 2023, no significant change.
Discharge Plan
-
Patient Disposition: Home with Home Care
Discharge Diagnosis/Procedures: Acute hypoxemic respiratory failure believed secondary to ILD in the setting of amiodarone versus HFpEF exacerbation
Medical history of HFpEF, atrial fibrillation, severe protein calorie malnutrition, solitary left kidney with CKD stage IIIa, gangrenous cholecystitis s/p percutaneous cholecystostomy
Condition: Fair
Diet: As tolerated
Activity: As tolerated
Activity Restrictions/Additional Instructions:
Will need repeat CBC in 1week. Please call PCP to set this up.
Referrals:
Libia Harrison DO [Active] - in four to six weeks (PFTs)
Tabitha Carney MD [Family Provider] -
Paty Zamora DO [Active] - (follow up with GI for anemia. [phone] to schedule 3-4 weeks)
Additional Discharge Medication Instructions: STOP
Eliquis 5mg BID
Augmentin as completed
Start
Eliquis 2.5mg twice a day (Age/renal function adjusted)
Protonix 40mg twice a day
Flomax 0.4mg daily
Complete taper
Prednisone taper
Day 1 & 2:10mg x 5tabs = 50mg
Day 3 & 4:10mg x 4tabs = 40mg
Day 5 & 6:10mg x 3tabs = 30mg
Day 7 & 8:10mg x 2tabs = 20mg
Day 9 & 10:10mg x 1tab = 10mg
Prescriptions:
New
prednisone 10 mg tablet
10 mg PO DIRECTED Qty: 30 0RF
Rx Instructions:
Day1 &2:10mg x 5tabs=50mg
D3 &4:10mg x 4t=40mg
D5 &6:10mg x 3t=30mg
D7 &8:10mg x 2t=20mg
D9 &10:10mg x 1t=10mg
tamsulosin 0.4 mg Capsule
0.4 mg PO DAILY 30 Days Qty: 30 0RF
pantoprazole 40 mg Tablet,Delayed Release (Dr/Ec)
40 mg PO BID 30 Days Qty: 60 0RF
Eliquis 2.5 mg Tablet
2.5 mg PO BID 30 Days Qty: 60 0RF
Continued
amiodarone 400 mg tablet
400 mg PO DAILY Qty: 60 0RF
vitamin B complex Tablet
1 tab PO DAILY
cholecalciferol (vitamin D3) 50 mcg (2,000 unit) Tablet
50 mcg PO DAILY
carvedilol 12.5 mg Tablet
12.5 mg PO BID Qty: 60 0RF
cetirizine 10 mg Tablet
10 mg PO DAILY
zinc sulfate 50 mg zinc (220 mg) Tablet
50 mg PO DAILY
ascorbic acid (vitamin C) [Vitamin C] 500 mg Tablet
500 mg PO TID
folic acid 1 mg Tablet
1 mg PO DAILY
rosuvastatin 40 mg tablet
40 mg PO QPM
Breztri Aerosphere 160-9-4.8 mcg/actuation HFA aerosol inhaler
2 inh INHALATION R BID
amlodipine 10 mg tablet
10 mg PO DAILY
hydralazine 50 mg tablet
50 mg PO TID
Discontinued
Eliquis 5 MG tablet
5 mg PO BID Qty: 0 0RF
amoxicillin-pot clavulanate 875-125 mg tablet
1 tab PO BID
Discharge Orders:
Discharge Patient (As Directed); Ordered 04/27/24
Ordered By: Ananth Palmer
Discharge Date and Time
Print Language: HUNGARIAN
--- NOTE | 2024-04-27 12:55 | W.PN.HOSP.TC ---
Today's Communication/Plan
-
dc home
Assessment / Plan
Assessment / Plan
Physical
NAD, resting in bed comfortable
Scleral anicteric
MMM
No jvd
Diminished breath sounds in bases
Normal s1/s2
Soft nt nd bs+ colostomy bag with dark stool liquid
Perc aashish drain bile, colostomy with dark output
Assessment and Plan
#Acute hypoxic respiratory failure that is believed to be related to possible ILD
-Trial steroids
-Incentive robinson
-Pulm consulted
-Wean o2 as tolerated
#Hypokalemia
2/2 diuresis
replete and follow
#Acute blood loss on chronic MERRITT anemia with Melena
Black stool in stoma on 04/23/24
Will resume tonight, assess for bleeding
PPI PO BID
GI follow up as outpatient
Afib
Continue amio
Eliquis held, will resume and monitor, if stable hgb in the AM dc home with eliquis and repeat cbc in 1 week
-----Dose adjusted to age and renal function (>80, Cr >1.5)
#Mild thrombocytopenia
follow CBC
Low 4T score and patient is on Eliquis - check HIT Ab, cont Eliquis
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
#Ischemic colitis, postop vascular surgery S/P colostomy
cont colostomy care
#UTI ruled out
Ucx neg
#Gangrenous Cholecystitis s/p perc aashish with ascending cholangitis and bacteremia
perc aashish draining well - plan by Parmjit for drain check in 4-6 weeks - continue to follow established outpatient plan
CT confirmed appropriate PRAKASH drain position
ERCP with stone extraction on 04/20/24
Completed ATb
repeated Bcx Ntd
follow LFT
#Solitary L kidney with CKD stage 3a
Cr elevation 2/2 anemia, hypoxia, diuresis
#Severe Protein calorie Malnutrition
supplements
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
DVT ppx SCDs
Full code
I have spent at least 59min relieving chart, test results, communication with consultants and direct patient care
Anticipated Discharge: Today
Subjective/Interval History
-
Date of Service: April 27, 2024
seen and examined. no new complaints. no acute ovenright events
no bleeding noted. colostomy output color unchanged
hgb stable
wants to go home
Objective Data
-
Labs:
Laboratory Results
04/27/24
08:29
WBC 17.6 H
Hgb 8.4 L
Hct 25.0 L
Plt Count 384
Sodium 137
Potassium 3.8
Chloride 102
Carbon Dioxide 25
BUN 36 H
Creatinine 1.4 H
Glucose 132 H
Calcium 8.8
Vital Signs:
Vital Signs
Temp Pulse Resp BP Pulse Ox
97.1 F 74 18 151/75 98
04/27/24 07:55 04/27/24 07:55 04/27/24 07:55 04/27/24 07:55 04/27/24 07:55
I&O
04/26/24 04/27/24 04/28/24
06:59 06:59 06:59
Intake Total 600 / 600 840 / 840
Output Total 1050 / 1050 1150 / 1150
Balance -450 / -450 -310 / -310
[2024-04-27] MEDS: FLUAD (65 yr+) 2024-2025 FORMULA 0.5 ML IM (13:59)
[2024-04-27 15:25] VITALS: BP 149/65
[2024-04-27] MEDS: APRESOLINE PO (16:23)
[2024-04-27] MEDS: CRESTOR PO (16:23)
== END 2024-04-27 18:13 | disposition home health service (06) | DRG 196 ==
LOC: 4 WEST ACU 10:51
PROVIDERS: Internal Medicine; Internal Medicine Critical Care Medicine; Registered Nurse; ADMITTING PHYSICIAN Internal Medicine; ATTENDING PHYSICIAN Hospitalist; CONSULT PHYSICIAN Internal Medicine; CONSULT PHYSICIAN Internal Medicine Cardiovascular Disease; CONSULT PHYSICIAN Internal Medicine Critical Care Medicine; CONSULT PHYSICIAN Internal Medicine Infectious Disease; EMERGENCY PHYSICIAN Emergency Medicine; FAMILY PHYSICIAN Family Medicine
PROC: 30233N1 Transfusion of Nonautologous Red Blood Cells into Peripheral Vein, Percutaneous Approach (ICD-10-PCS; 2024-04-23)
PROC: 3E02340 Introduction of Influenza Vaccine into Muscle, Percutaneous Approach (ICD-10-PCS; 2024-04-27)
DX: J84.9 Interstitial pulmonary disease, unspecified (principal); E43 Unspecified severe protein-calorie malnutrition; J96.01 Acute respiratory failure with hypoxia; I50.33 Acute on chronic diastolic (congestive) heart failure; I13.0 Hypertensive heart and chronic kidney disease with heart failure and stage 1 through stage 4 chronic kidney disease, or unspecified chronic kidney disease; I48.21 Permanent atrial fibrillation; F03.A3 Unspecified dementia, mild, with mood disturbance; I47.10 Supraventricular tachycardia, unspecified; K80.00 Calculus of gallbladder with acute cholecystitis without obstruction; D62 Acute posthemorrhagic anemia; K92.1 Melena; I25.10 Atherosclerotic heart disease of native coronary artery without angina pectoris; N18.32 Chronic kidney disease, stage 3b; D63.1 Anemia in chronic kidney disease; I25.2 Old myocardial infarction; E78.00 Pure hypercholesterolemia, unspecified; M35.3 Polymyalgia rheumatica; K21.9 Gastro-esophageal reflux disease without esophagitis; F17.210 Nicotine dependence, cigarettes, uncomplicated; N26.1 Atrophy of kidney (terminal); E87.6 Hypokalemia; K82.A1 Gangrene of gallbladder in cholecystitis; I73.9 Peripheral vascular disease, unspecified; D69.6 Thrombocytopenia, unspecified; T46.2X5A Adverse effect of other antidysrhythmic drugs, initial encounter; R32 Unspecified urinary incontinence; Z95.1 Presence of aortocoronary bypass graft; Z93.3 Colostomy status; Z88.5 Allergy status to narcotic agent; Z86.73 Personal history of transient ischemic attack (TIA), and cerebral infarction without residual deficits; Z90.49 Acquired absence of other specified parts of digestive tract; Z79.01 Long term (current) use of anticoagulants; Z79.899 Other long term (current) drug therapy; Z11.52 Encounter for screening for COVID-19; Z96.89 Presence of other specified functional implants; Z68.22 Body mass index [BMI] 22.0-22.9, adult; Z95.5 Presence of coronary angioplasty implant and graft; Z23 Encounter for immunization
CPT/HCPCS: 70450; 71045; 71046; 71250; 74176; 80048; 80053; 80202; 81003; 81015; 82140; 82248; 82607; 82728; 82746; 83540; 83550; 83605; 83615; 83735; 83880; 85014; 85018; 85025; 85027; 85045; 85652; 86022; 86140; 86850; 86900; 86901; 86920; 87040; 87070; 87086; 87449; 87502; 87811; 87899; 90662; 93005; 93306; 94640; 97163; 97166; 97530; 97535; 99285; G0008; P9016